=== PATIENT | female | born 1955 | race Caucasian/White ===

== ENCOUNTER 2022-07-20 15:45 | Inpatient (IN) | payer MEDICARE, OTHER ==
--- OUTSIDE RECORDS SUMMARY | 2022-07-20 15:56 | XMS REPORT | Continuity of Care Document ---
:1955 Author Organization [facility] t Address [address] [place] [address] Care Team Providers Name Role Phone Breann Hou MD Primary Care Physician ABBY Attending Clinician Unavailable Breann Hou Attending Clinician [phone] Jael Pimentel MD Attending Clinician Sahil Kwon MD Attending Clinician Akua Jasso NP Attending Clinician Mary Mar MA Attending Clinician Unavailable MD JAEL PIMENTEL Attending Clinician Unavailable abby Attending Clinician Unavailable MARINA_JONAH Attending Clinician Unavailable ABBY Admitting Clinician Unavailable JAEL PIMENTEL Admitting Clinician Unavailable MD JAEL PIMENTEL Admitting Clinician Unavailable abby Admitting Clinician Unavailable PÉREZ Admitting Clinician Unavailable Payers Payer Name Policy Type Policy Number Effective Date Expiration Date [facility] [id number] 2022 [facility] 00:00:00 (MEDICARE REPLACEMENT/ADVANTA GE - PPO) [facility] [id number] (MEDICARE REPLACEMENT/ADVANTA GE - PPO) Problems Condition Condition Condition Status Onset Resolution Last Treating Co mments Source Name Details Category Date Date Treatment Clinician Date Acute Acute Problem Active 2021-09 [facility] respirator Respirator 0-19 [facility] y distress y Distress 00:00: ty 00 Hospita Clinics Vitamin Vitamin Problem Active [facility] B12 B12 8-04 [facility] deficiency 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 00 Hospita anemic) Anemic) Clinics Multiple Multiple Problem Active [facility] joint pain Joint Pain 8-04 [facility] Dyspnea at Dyspnea at Problem Active [facility] rest Rest 8-04 [facility] 00:[facility]: [facility] Gastroesop Gastroesop Problem Active S [facility] hageal hageal 6-14 [facility]i reflux Reflux 00:00: ty disease Disease 00 Hospita Clinics Edema Edema Problem Active [facility] 6-14 [facility] S/P ORIF S/P ORIF Disease Active 2020-09 Metho di (open (open 2-01 st reduction reduction 00:00: [facility] internal internal 00 l fixation) fixation) left left distal distal radius radius fracture fracture Closed Closed Problem Active 2020-09 [place] fracture Fracture 1-17 Commun i [facility] left [facility]:00[facility] Active 2020-09 [facility] fracture fracture 1-17 st of distal of distal 00:00: [facility] end of end of 00 l left left radius, radius, initial initial encounter encounter Lesion of Lesion of Problem Active [facility] marg[facility] skin of Skin of 06-22 [facility] face [facility]:00: [facility] Dysuria Dysuria Problem Active [facility] 9-29 [facility]: [facility] Acute Acute Problem Active [facility] sinusitis Sinusitis 4-27 Comm uni 00:00: ty 00 Hospita Clinics Acute Acute Problem Active [facility] sciatica Sciatica 6-24 [facility] i [facility]: [facility] Hyperlipid Hyperlipid Problem Active S weeny emia emia 6- Communi 00:00: ty 00 Hospita Clinics Cardiomyop Cardiomyop Problem Active S weveday athy athy 6- [facility] 00:[facility]: [facility] Acute Acute Problem Active 2017-09 [place] maxillary Maxillary 1-28 Comm uni sinusitis Sinusitis 00:00: ty 00 Hospita Clinics Asthmatic Asthmatic Problem Active 2017-09 [facility] bronchitis Bronchitis 1-28 Co mmuni 00:00: ty 00 Hospita Clinics Bronchitis Bronchitis Problem Active S weeny 9-20 Communi 00:00: ty 00 Hospita l Clinics Malaise Malaise Problem Active [facility] 9-20 Communi 00:00: ty Hospita l Clinics Onychomyco Onychomyco Problem Active S ween[facility] sis sis 12-18 Communi 00:00: ty 00 Hospita l Clinics Seasonal Seasonal Problem Active [facility] allergic Allergic 12-18 Commun i rhinitis Rhinitis 00:00: ty Hospita l Clinics Abrasion Abrasion Problem Active [facility] y 12-18 Communi 00:00: ty 00 Hospita l Clinics Fall Fall Problem Active [facility] 12-18 [facility]i 00:00: ty Hospita l Clinics COPD COPD Disease Active Overview: Method i (chronic (chronic 09-[address] obstructiv obstructiv 00:00: g of this Hospita e e 00 note l pulmonary pulmonary might be disease) disease) different from the original. MILD PER PT - NO OTHER PROBLEMS SINCE THEN. Hypertensi Hypertensi Disease Active M ethodi on on [facility] Hospita l Hyperchole Hyperchole Disease Active M ethodi steremia steremia st Hospita l Dental Dental Disease Active [facility] crown crown st present present Hospita l Allergies, Adverse Reactions, Alerts Allergy Allergy Status Severity Reaction(s) Onset Inactive Treating Comm ents Source Name Type Date Date Clinician Codeine Propensi Active Headache 2020-09 Metho di ty to 10-10 st adverse 00:00: Hospita reaction 00 l s to drug Codeine Allergy Active [facility] Social History Social Habit Start Date Stop Date Quantity Comments Source Alcohol intake 2021-09-21 2021-09-21 Current drinker Metho dist 00:00:00 00:00:00 of alcohol Hospital (finding) Cigarettes smoked 2021-08-10 2021-08-[address] current (pack per 00:00:00 00:00:00 Hospita l day) - Reported Cigarette 2021-08-10 2021-08-10 [facility]00[facility]00 [facility] Tobacco use and 2021-08-10 2021-08-10 Smokeless tobacco [facility] exposure 00:00:00 00:00:00 non-user Hospital History of tobacco 2005-06-28 Current smoker [facility] use 00:[facility]:00 Hospital Sex Ass[birth year] At [birth year] [facility] 00:00:[facility] 00:[facility]00 [facility] Smoking Status Start Date Stop Date Source Never Smoker [facility] Ex-smoker 2021-08-10 00:00:00 2021-08-10 00:00:00 [facility] Medications Ordered Filled Start Stop Current Ordering Indication Dosage Frequency Signature Comments Components Source Medication Medication Date Date Medication? Clinician (SIG) Name Name Marcinalog 40 Marcinalog 40 2021-09 No Kenalog 40 [facility] mg/mL mg/mL 0-05 mg/mL [facility]i suspension suspension 10:45: suspension ty for for 03 for Hospita injectionTa injectionTa injectionT l ke 2 mL by ke 2 mL by brenda 2 mL Clinics injection injection by route. route. injection route. Kenalog 40 Marcinalog 40 2021-09 No Kenalog 40 [facility] mg/mL mg/mL 0-05 mg/mL Communi suspension suspension 10:45: suspension ty for for 03 for Hospita injectionTa injectionTa injectionT l ke 2 mL by ke 2 mL by brenda 2 mL [facility] injection injection by route. route. injection route. Kenalog 40 Marcinalog 40 No Kenalog 40 [place] mg/mL mg/mL 8-11 mg/mL Communi suspension suspension 12:04: suspension ty for for 06 for Hospita injectionTa injectionTa injectionT l ke 2 mL by ke 2 mL by brenda 2 mL [facility] injection injection by route. route. injection route. cyanocobala cyanocobala No cyanocobal [facility] min (vit min (vit 7-06 josue (vit Co mmuni B-12) 1,000 B-12) 1,000 10:28: B-12) ty mcg/mL mcg/mL 07 1,000 Hospita injection injection mcg/mL l solutionInj solutionInj injection Clinics ect 1 mL ect 1 mL solutionIn every month every month ject 1 mL by by every subcutaneou subcutaneou month by s route. s route. subcutaneo us route. cyanocobala cyanocobala No cyanocobal [facility] min (vit min (vit 6-16 josue (vit Co mmuni B-12) 1,000 B-12) 1,000 13:43: B-12) ty mcg/mL mcg/mL 49 1,000 Hospita injection injection mcg/mL l solutionInj solutionInj injection Clinics ect 1 mL ect 1 mL solutionIn every month every month ject 1 mL by by every subcutaneou subcutaneou month by s route. s route. subcutaneo us route. cyanocobala cyanocobala No cyanocobal [place] min (vit min (vit 5-31 josue (vit Co mmuni B-12) 1,000 B-12) 1,000 09:14: B-12) ty mcg/mL mcg/mL 30 1,000 Hospita injection injection mcg/mL l solutionInj solutionInj injection Clinics ect 1 mL ect 1 mL solutionIn every month every month ject 1 mL by by every subcutaneou subcutaneou month by s route. s route. subcutaneo us route. ceftriaxone ceftriaxone No ceftriaxon [facility] 1 gram 1 gram 2-15 e 1 gram Communi solution solution 14:26: solution t y for for 42 for Hospita injectionTa injectionTa injectionT l ke 1 g by ke 1 g by brenda 1 g by Clinics injection injection injection route. route. route. Kenalog 40 Kenalog 40 No Kenalog 40 [place] mg/mL mg/mL 2-15 mg/mL Communi suspension suspension 14:25: suspension ty for for 54 for Hospita injectionTa injectionTa injectionT l ke 2 mL by ke 2 mL by brenda 2 mL Clinics injection injection by route. route. injection route. furosemide 2020-09 Yes 20mg Q24H Take 20 mg M ethodi (LASIX) 20 2-[address] mg tablet 10:38: daily as [facility]osp [facility] 12 needed. l losartan 2020-09 Yes 50mg QD Take 50 mg Met h[facility] (COZAAR) 50 2-[address] MG tablet 10:38: daily. Hospit a 12 l atorvastati 2020-09 Yes 20mg QD Take 20 mg [facility] n (LIPITOR) 2-[address] 20 mg 10:38: daily. Hospita tablet 12 Default OP l ins naproxen 2020-09 Yes 500mg Take 500 Meth daly (NAPROSYN) 2-[address] 500 MG 10:38: mouth as Hospita tablet 12 needed for l mild pain. ibuprofen 2020-09 Yes 600mg Q6H Take 600 [facility] (ADVIL) 600 2-[address] MG tablet 10:38: mouth Hospita 12 every 6 l (six) hours as needed for mild pain. cetirizine 2020-09 Yes 10mg QD Take 10 mg M ethodi (ZyrTEC) 10 2-[address] MG tablet 10:38: daily. Hospit a 12 l guaifenesin 2020-09 Yes Q24H Take by Met hodi /pseudoephe 2-[address] drne HCl 10:38: daily as Hospi ta (MUCINEX D 12 needed. l ORAL) CALCIUM 2020-09 Yes Take by [facility] ORAL 2-[address] 10:38: Hospita 12 l TURMERIC 2020-09 Yes Take by [facility] i ORAL 2-[address] 10:38: Hospita 12 l HYDROcodone 2020-09- [place] [id number] 1{tbl} Q6H Take 1 [facility] -acetaminop 1-19 11-[address] hen (NORCO) 00:00: 05:59 mouth Hosp al[facility] 5-325 mg 00 :00 every 6 l per tablet (six) hours as needed for moderate pain for up to 7 days .acute pain. Max Daily Amount: 4 tablets traMADoL 2020-09- [place] [id number] 50mg Q6H Take 1 Metho di (ULTRAM) 50 1-17 11-25 tablet (50 s t mg tablet 00:00: 05:59 mg total) Ho spita 00 :00 by mouth l every 6 (six) hours as needed for severe pain for up to 7 days .acute pain. montelukast 2020-09 Yes 10mg QD Take 10 mg [facility] (SINGULAIR) 0-[address] 10 mg 00:00: every Hospita tablet 00 morning. l carvediloL 2020-09 Yes 25mg Q.5D Take 25 mg M ethodi (COREG) 25 0-[address] MG tablet 00:00: (two) Hospita 00 times a l day. Kenalog 40 Kenalog 40 2021-0 No Kenalog 40 [facility] mg/mL mg/mL 9-29 mg/mL Communi suspension suspension 16:37: suspension ty for for 00 for Hospita injectionTa injectionTa injectionT l ke 2 mL by ke 2 mL by brenda 2 mL Clinics injection injection by route. route. injection route. omeprazole 0 Yes 10mg Q.5D Take 10 mg M ethodi (PriLOSEC) 06-[address] 10 MG 00:00: (two) Hospita capsule 00 times a l day. spironolact 0 Yes 25mg QD Take 25 mg [facility] one 06-[address] (ALDACTONE) 00:00: daily. [facility]osp [facility] 25 MG 00 l tablet Kenalog 40 Kenalog 40 No Kenalog 40 [place] mg/mL mg/mL 4-27 mg/mL Communi suspension suspension 14:55: suspension ty for for 36 for Hospita injectionIM injectionIM injectionI l one time one time M one time C linics B12 B12 2020-0 No B12 [place] 4-27 Communi 00:00: ty 00 Hospita l Clinics B12 B12 2020-0 No B12 [place] 4-27 Communi 00:00: ty 00 Hospita l Clinics B12 B12 2020-0 No B12 [facility] 4-27 Communi 00:00: ty 00 Hospita l Clinics B12 B12 2020-0 No B12 [place] 4-27 Communi 00:00: ty 00 Hospita l Clinics B12 B12 2020-0 No B12 [facility] 4-27 Communi 00:00: ty 00 Hospita l Clinics B12 B12 2020-0 No B12 [place] 4-27 Communi 00:00: ty 00 Hospita l Clinics B12 B12 2020-0 No B12 [place] 4-27 Communi 00:00: ty 00 Hospita l Clinics B12 B12 2020-0 No B12 [place] 4-27 Communi 00:00: ty 00 Hospita l Clinics B12 B12 2020-0 No B12 [place] 4-27 Communi 00:00: ty 00 Hospita l Clinics B12 B12 2020-0 No B12 [place] 4-27 Communi 00:00: ty 00 Hospita l Clinics B12 B12 2020-0 No B12 [place] 4-27 Communi 00:00: ty 00 Hospita l Clinics B12 B12 2020-0 No B12 [place] 01-18 Communi 00:00: ty [facility] B12 B12 2020-0 No B12 [place] 01-18 Communi 00:00: ty [facility] B12 B12 2020-0 No B12 [place] 01-18 Communi 00:00: ty 00 [facility] amoxicillin amoxicillin No 1 Q12H amoxicilli [facility] [phone] n 875 Communi mg-potassiu mg-potassiu mg-potassi ty m m [facility] clavulanate clavulanate clavulanat l 125 mg 125 mg e 125 mg Clinics tablet Take tablet Take tablet 1 tablet 1 tablet Take 1 every 12 every 12 tablet hours by hours by every 12 oral route. oral route. hours by oral route. atorvastati atorvastati No atorvastat [place] n 20 mg n 20 mg in 20 mg Com[facility] ni tablet TAKE tablet TAKE tablet ty ONE (1) ONE (1) TAKE ONE Hospi ta TABLET(S) TABLET(S) (1) l BY MOUTH BY MOUTH TABLET(S) Cl inics ONCE A DAY. ONCE A DAY. BY MOUTH ONCE A DAY. biotin otc biotin otc No biotin otc [facility] 10,000 10,000 10,000 Communi daily. daily. daily. [facility] Calcium 600 Calcium 600 No Calcium [facility] daily daily 600 daily Communi [facility] carvedilol carvedilol No carvedilol [facility] 25 mg 25 mg 25 mg Communi tablet TAKE tablet TAKE tablet ty ONE (1) ONE (1) TAKE ONE Hospi ta TABLET(S) TABLET(S) (1) l BY MOUTH BY MOUTH TABLET(S) Cl inics TWICE A TWICE A BY MOUTH DAY. DAY. TWICE A DAY. furosemide furosemide No furosemide [facility] 80 mg 80 mg 80 mg Communi tablet TAKE tablet TAKE tablet ty ONE (1) ONE (1) TAKE ONE Hospi ta TABLET(S) TABLET(S) (1) l BY MOUTH BY MOUTH TABLET(S) Cl inics ONCE A DAY. ONCE A DAY. BY MOUTH ONCE A DAY. hydrocodone hydrocodone No hydrocodon [facility] 5 5 e 5 Communi mg-acetamin mg-acetamin mg-acetami ty ophen 325 ophen 325 nophen 325 Hospita mg tablet mg tablet mg tablet l TAKE ONE TAKE ONE TAKE ONE Cli nics (1) TABLET (1) TABLET (1) TABLET BY MOUTH BY MOUTH BY MOUTH EVERY SIX EVERY SIX EVERY SIX HOURS HOURS HOURS NEEDED FOR NEEDED FOR NEEDED FOR PAIN. MAX PAIN. MAX PAIN. MAX OF 4 TABS A OF 4 TABS A OF 4 TABS DAY. DAY. A DAY. losartan 50 losartan 50 No losartan [facility] mg tablet mg tablet 50 mg Comm uni TAKE ONE TAKE ONE tablet ty (1) (1) TAKE ONE Hospita TABLET(S) TABLET(S) (1) l BY MOUTH BY MOUTH TABLET(S) Cl inics ONCE A DAY. ONCE A DAY. BY MOUTH ONCE A DAY. meloxicam meloxicam No meloxicam [facility] 7.5 mg 7.5 mg 7.5 mg Communi tablet TAKE tablet TAKE tablet ty ONE (1) ONE (1) TAKE ONE Hospi ta TABLET(S) TABLET(S) (1) l BY MOUTH BY MOUTH TABLET(S) Cl inics ONCE A DAY. ONCE A DAY. BY MOUTH ONCE A DAY. montelukast montelukast No montelukas [facility] 10 mg 10 mg t 10 mg Communi tablet TAKE tablet TAKE tablet ty ONE (1) ONE (1) TAKE ONE Hospi ta TABLET(S) TABLET(S) (1) l BY MOUTH BY MOUTH TABLET(S) Cl inics EVERY EVERY BY MOUTH MORNING. MORNING. EVERY MORNING. Mucinex Mucinex No Mucinex [facility] Communi ty Hospita l Clinics naproxen naproxen No naproxen [facility] 500 mg 500 mg 500 mg Communi tablet TAKE tablet TAKE tablet ty ONE (1) ONE (1) TAKE ONE Hospi ta TABLET(S) TABLET(S) (1) l BY MOUTH BY MOUTH TABLET(S) Cl inics TWICE A DAY TWICE A DAY BY MOUTH WITH MEALS. WITH MEALS. TWICE A DAY WITH MEALS. omeprazole omeprazole No omeprazole [facility] 20 mg 20 mg 20 mg Communi capsule,del capsule,del capsule,de ty ayed ayed layed Hospita release release release l TAKE ONE TAKE ONE TAKE ONE Cli nics (1) (1) (1) CAPSULE(S) CAPSULE(S) CAPSULE(S) BY MOUTH BY MOUTH BY MOUTH ONCE A DAY. ONCE A DAY. ONCE A DAY. One A Day One A Day No One A Day [facility] Vitamin Vitamin Vitamin Commun i Daily Daily Daily [facility] Probiotic Probiotic No Probiotic [facility] Communi [facility] spironolact spironolact No spironolac [place] one 25 mg one 25 mg tone 25 mg Communi tablet TAKE tablet TAKE tablet ty ONE (1) ONE (1) TAKE ONE Hospi ta TABLET(S) TABLET(S) (1) l BY MOUTH BY MOUTH TABLET(S) Cl inics ONCE A DAY. ONCE A DAY. BY MOUTH ONCE A DAY. tramadol 50 tramadol 50 No tramadol [facility] mg tablet mg tablet 50 mg Comm uni TAKE ONE TAKE ONE tablet ty (1) (1) TAKE ONE Hospita TABLET(S) TABLET(S) (1) l BY MOUTH BY MOUTH TABLET(S) Cl inics EVERY SIX EVERY SIX BY MOUTH HOURS HOURS EVERY SIX NEEDED FOR NEEDED FOR HOURS SEVERE SEVERE NEEDED FOR PAIN. PAIN. SEVERE PAIN. turmeric turmeric No turmeric [facility] Communi [facility] Tylenol 325 Tylenol 325 No 2 Q6H Tylenol [facility] mg tablet mg tablet 325 mg Com clarke Take 2 Take 2 tablet ty tablets tablets Take 2 Hospita every 6 every 6 tablets l hours by hours by every 6 Clin ics oral route oral route hours by as needed. as needed. oral route as needed. Vitamin D3 Vitamin D3 No Vitamin D3 [facility] 5000 iu 5000 iu 5000 iu Commun i daily daily daily [facility] Zyrtec Zyrtec No Zyrtec [facility] Communi [facility] amoxicillin amoxicillin No 1 Q12H amoxicilli [facility] [phone] n 875 Communi mg-potassiu mg-potassiu mg-potassi ty m m [facility] clavulanate clavulanate clavulanat l 125 mg 125 mg e 125 mg Clinics tablet Take tablet Take tablet 1 tablet 1 tablet Take 1 every 12 every 12 tablet hours by hours by every 12 oral route. oral route. hours by oral route. atorvastati atorvastati No atorvastat [facility] n 20 mg n 20 mg in 20 mg Commu ni tablet TAKE tablet TAKE tablet ty ONE (1) ONE (1) TAKE ONE Hospi ta TABLET(S) TABLET(S) (1) l BY MOUTH BY MOUTH TABLET(S) Cl inics ONCE A DAY. ONCE A DAY. BY MOUTH ONCE A DAY. biotin otc biotin otc No biotin otc [facility] 10,000 10,000 10,000 Communi daily. daily. daily. ty [facility] Calcium 600 Calcium 600 No Calcium [place] daily daily 600 daily Communi ty [facility] carvedilol carvedilol No carvedilol [facility] 25 mg 25 mg 25 mg Communi tablet TAKE tablet TAKE tablet ty ONE (1) ONE (1) TAKE ONE Hospi ta TABLET(S) TABLET(S) (1) l BY MOUTH BY MOUTH TABLET(S) Cl inics TWICE A TWICE A BY MOUTH DAY. DAY. TWICE A DAY. furosemide furosemide No furosemide [facility] 80 mg 80 mg 80 mg Communi tablet TAKE tablet TAKE tablet ty ONE (1) ONE (1) TAKE ONE Hospi ta TABLET(S) TABLET(S) (1) l BY MOUTH BY MOUTH TABLET(S) Cl inics ONCE A DAY. ONCE A DAY. BY MOUTH ONCE A DAY. hydrocodone hydrocodone No hydrocodon [facility] 5 5 e 5 Communi mg-acetamin mg-acetamin mg-acetami ty ophen 325 ophen 325 nophen 325 Hospita mg tablet mg tablet mg tablet l TAKE ONE TAKE ONE TAKE ONE Cli nics (1) TABLET (1) TABLET (1) TABLET BY MOUTH BY MOUTH BY MOUTH EVERY SIX EVERY SIX EVERY SIX HOURS HOURS HOURS NEEDED FOR NEEDED FOR NEEDED FOR PAIN. MAX PAIN. MAX PAIN. MAX OF 4 TABS A OF 4 TABS A OF 4 TABS DAY. DAY. A DAY. Kenalog 40 Kenalog 40 No 2mL Kenalog 40 [facility] mg/mL mg/mL mg/mL Communi suspension suspension suspension ty for for for Hospita injection injection injection l Take 2 mL Take 2 mL Take 2 mL Clinics by by by injection injection injection route. route. route. losartan 50 losartan 50 No losartan [facility] mg tablet mg tablet 50 mg Comm uni TAKE ONE TAKE ONE tablet ty (1) (1) TAKE ONE Hospita TABLET(S) TABLET(S) (1) l BY MOUTH BY MOUTH TABLET(S) Cl inics ONCE A DAY. ONCE A DAY. BY MOUTH ONCE A DAY. meloxicam meloxicam No meloxicam [facility] 7.5 mg 7.5 mg 7.5 mg Communi tablet TAKE tablet TAKE tablet ty ONE (1) ONE (1) TAKE ONE Hospi ta TABLET(S) TABLET(S) (1) l BY MOUTH BY MOUTH TABLET(S) Cl inics ONCE A DAY. ONCE A DAY. BY MOUTH ONCE A DAY. montelukast montelukast No montelukas [facility] 10 mg 10 mg t 10 mg Communi tablet TAKE tablet TAKE tablet ty ONE (1) ONE (1) TAKE ONE Hospi ta TABLET(S) TABLET(S) (1) l BY MOUTH BY MOUTH TABLET(S) Cl inics EVERY EVERY BY MOUTH MORNING. MORNING. EVERY MORNING. Mucinex Mucinex No Mucinex [place] Communi ty [facility] naproxen naproxen No naproxen Swe [facility] 500 mg 500 mg 500 mg Communi tablet TAKE tablet TAKE tablet ty ONE (1) ONE (1) TAKE ONE Hospi ta TABLET(S) TABLET(S) (1) l BY MOUTH BY MOUTH TABLET(S) Cl inics TWICE A DAY TWICE A DAY BY MOUTH WITH MEALS. WITH MEALS. TWICE A DAY WITH MEALS. omeprazole omeprazole No omeprazole [facility] 20 mg 20 mg 20 mg Communi capsule,del capsule,del capsule,de ty ayed ayed layed Hospita release release release l TAKE ONE TAKE ONE TAKE ONE Cli nics (1) (1) (1) CAPSULE(S) CAPSULE(S) CAPSULE(S) BY MOUTH BY MOUTH BY MOUTH ONCE A DAY. ONCE A DAY. ONCE A DAY. One A Day One A Day No One A Day [facility] Vitamin Vitamin Vitamin Commun i Daily Daily Daily ty [facility] Probiotic Probiotic No Probiotic [facility] Communi [facility] spironolact spironolact No spironolac [place] one 25 mg one 25 mg tone 25 mg Communi tablet TAKE tablet TAKE tablet ty ONE (1) ONE (1) TAKE ONE Hospi ta TABLET(S) TABLET(S) (1) l BY MOUTH BY MOUTH TABLET(S) Cl inics ONCE A DAY. ONCE A DAY. BY MOUTH ONCE A DAY. tramadol 50 tramadol 50 No tramadol [facility] mg tablet mg tablet 50 mg Comm uni TAKE ONE TAKE ONE tablet ty (1) (1) TAKE ONE Hospita TABLET(S) TABLET(S) (1) l BY MOUTH BY MOUTH TABLET(S) Cl inics EVERY SIX EVERY SIX BY MOUTH HOURS HOURS EVERY SIX NEEDED FOR NEEDED FOR HOURS SEVERE SEVERE NEEDED FOR PAIN. PAIN. SEVERE PAIN. turmeric turmeric No turmeric Swe marg[facility] Communi ty [facility] Tylenol 325 Tylenol 325 No 2 Q6H Tylenol [facility] mg tablet mg tablet 325 mg Com clarke Take 2 Take 2 tablet ty tablets tablets Take 2 Hospita every 6 every 6 tablets l hours by hours by every 6 Clin ics oral route oral route hours by as needed. as needed. oral route as needed. Vitamin D3 Vitamin D3 No Vitamin D3 [facility] 5000 iu 5000 iu 5000 iu Commun i daily daily daily ty [facility] Zyrtec Zyrtec No Zyrtec [place] Communi ty [facility] atorvastati atorvastati No atorvastat [place] n 20 mg n 20 mg in 20 mg Commu ni tablet TAKE tablet TAKE tablet ty ONE (1) ONE (1) TAKE ONE Hospi ta TABLET(S) TABLET(S) (1) l BY MOUTH BY MOUTH TABLET(S) Cl inics ONCE A DAY. ONCE A DAY. BY MOUTH ONCE A DAY. Augmentin Augmentin No 1 Q12H Augmentin [facility] 875 mg-125 875 mg-125 875 mg-125 Communi mg tablet mg tablet mg tablet ty Take 1 Take 1 Take 1 Hospita tablet tablet tablet l every 12 every 12 every 12 Cli nics hours by hours by hours by oral route. oral route. oral route. Calcium 600 Calcium 600 No Calcium [place] daily daily 600 daily Communi ty [facility] carvedilol carvedilol No carvedilol [facility] 25 mg 25 mg 25 mg Communi tablet TAKE tablet TAKE tablet ty ONE (1) ONE (1) TAKE ONE Hospi ta TABLET(S) TABLET(S) (1) l BY MOUTH BY MOUTH TABLET(S) Cl inics TWICE A TWICE A BY MOUTH DAY. DAY. TWICE A DAY. furosemide furosemide No furosemide [facility] 80 mg 80 mg 80 mg Communi tablet TAKE tablet TAKE tablet ty ONE (1) ONE (1) TAKE ONE Hospi ta TABLET(S) TABLET(S) (1) l BY MOUTH BY MOUTH TABLET(S) Cl inics ONCE A DAY. ONCE A DAY. BY MOUTH ONCE A DAY. losartan 50 losartan 50 No losartan [facility] mg tablet mg tablet 50 mg Comm uni TAKE ONE TAKE ONE tablet ty (1) (1) TAKE ONE Hospita TABLET(S) TABLET(S) (1) l BY MOUTH BY MOUTH TABLET(S) Cl inics ONCE A DAY. ONCE A DAY. BY MOUTH ONCE A DAY. montelukast montelukast No montelukas [facility] 10 mg 10 mg t 10 mg Communi tablet TAKE tablet TAKE tablet ty ONE (1) ONE (1) TAKE ONE Hospi ta TABLET(S) TABLET(S) (1) l BY MOUTH BY MOUTH TABLET(S) Cl inics EVERY EVERY BY MOUTH MORNING. MORNING. EVERY MORNING. Mucinex Mucinex No Mucinex [place] Communi ty [facility] naproxen naproxen No naproxen Swe margy 500 mg 500 mg 500 mg Communi tablet TAKE tablet TAKE tablet ty ONE (1) ONE (1) TAKE ONE Hospi ta TABLET(S) TABLET(S) (1) l BY MOUTH BY MOUTH TABLET(S) Cl inics TWICE A DAY TWICE A DAY BY MOUTH WITH MEALS. WITH MEALS. TWICE A DAY WITH MEALS. omeprazole omeprazole No omeprazole [facility] 10 mg 10 mg 10 mg Communi capsule,del capsule,del capsule,de ty ayed ayed layed Hospita release release release l TAKE ONE TAKE ONE TAKE ONE Cli nics (1) (1) (1) CAPSULE(S) CAPSULE(S) CAPSULE(S) BY MOUTH BY MOUTH BY MOUTH TWICE A TWICE A TWICE A DAY. DAY. DAY. One A Day One A Day No One A Day [facility] Vitamin Vitamin Vitamin Commun i Daily Daily Daily ty [facility] Probiotic Probiotic No Probiotic [place] Communi ty [facility] spironolact spironolact No spironolac [place] one 25 mg one 25 mg tone 25 mg Communi tablet TAKE tablet TAKE tablet ty ONE (1) ONE (1) TAKE ONE Hospi ta TABLET(S) TABLET(S) (1) l BY MOUTH BY MOUTH TABLET(S) Cl inics ONCE A DAY. ONCE A DAY. BY MOUTH ONCE A DAY. turmeric turmeric No turmeric Swe margy Communi ty [facility] Tylenol 325 Tylenol 325 No 2 Q6H Tylenol [place] mg tablet mg tablet 325 mg Com clarke Take 2 Take 2 tablet ty tablets tablets Take 2 Hospita every 6 every 6 tablets l hours by hours by every 6 Clin ics oral route oral route hours by as needed. as needed. oral route as needed. Vitamin D3 Vitamin D3 No Vitamin D3 [place] 5000 iu 5000 iu 5000 iu Commun i daily daily daily ty [facility] Zyrtec Zyrtec No Zyrtec [place] Communi ty [facility] atorvastati atorvastati No atorvastat [place] n 20 mg n 20 mg in 20 mg Commu ni tablet TAKE tablet TAKE tablet ty ONE (1) ONE (1) TAKE ONE Hospi ta TABLET(S) TABLET(S) (1) l BY MOUTH BY MOUTH TABLET(S) Cl inics ONCE A DAY. ONCE A DAY. BY MOUTH ONCE A DAY. Augmentin Augmentin No 1 Q12H Augmentin [place] 875 mg-125 875 mg-125 875 mg-125 Communi mg tablet mg tablet mg tablet ty Take 1 Take 1 Take 1 Hospita tablet tablet tablet l every 12 every 12 every 12 Cli nics hours by hours by hours by oral route. oral route. oral route. Calcium 600 Calcium 600 No Calcium [place] daily daily 600 daily Communi ty [facility] carvedilol carvedilol No carvedilol [place] 25 mg 25 mg 25 mg Communi tablet TAKE tablet TAKE tablet ty ONE (1) ONE (1) TAKE ONE Hospi ta TABLET(S) TABLET(S) (1) l BY MOUTH BY MOUTH TABLET(S) Cl inics TWICE A TWICE A BY MOUTH DAY. DAY. TWICE A DAY. furosemide furosemide No furosemide [place] 80 mg 80 mg 80 mg Communi tablet TAKE tablet TAKE tablet ty ONE (1) ONE (1) TAKE ONE Hospi ta TABLET(S) TABLET(S) (1) l BY MOUTH BY MOUTH TABLET(S) Cl inics ONCE A DAY. ONCE A DAY. BY MOUTH ONCE A DAY. Kenalog 40 Kenalog 40 No Kenalog 40 [place] mg/mL mg/mL mg/mL Communi suspension suspension suspension ty for for for Hospita injection injection injection l IM one time IM one time IM one Clinics time losartan 50 losartan 50 No losartan [place] mg tablet mg tablet 50 mg Comm uni TAKE ONE TAKE ONE tablet ty (1) (1) TAKE ONE Hospita TABLET(S) TABLET(S) (1) l BY MOUTH BY MOUTH TABLET(S) Cl inics ONCE A DAY. ONCE A DAY. BY MOUTH ONCE A DAY. montelukast montelukast No montelukas [place] 10 mg 10 mg t 10 mg Communi tablet TAKE tablet TAKE tablet ty ONE (1) ONE (1) TAKE ONE Hospi ta TABLET(S) TABLET(S) (1) l BY MOUTH BY MOUTH TABLET(S) Cl inics EVERY EVERY BY MOUTH MORNING. MORNING. EVERY MORNING. Mucinex Mucinex No Mucinex [place] [facility] naproxen naproxen No naproxen Swe margy 500 mg 500 mg 500 mg Communi tablet TAKE tablet TAKE tablet ty ONE (1) ONE (1) TAKE ONE Hospi ta TABLET(S) TABLET(S) (1) l BY MOUTH BY MOUTH TABLET(S) Cl inics TWICE A DAY TWICE A DAY BY MOUTH WITH MEALS. WITH MEALS. TWICE A DAY WITH MEALS. omeprazole omeprazole No omeprazole [place] 10 mg 10 mg 10 mg Communi capsule,del capsule,del capsule,de ty ayed ayed layed Hospita release release release l TAKE ONE TAKE ONE TAKE ONE Cli nics (1) (1) (1) CAPSULE(S) CAPSULE(S) CAPSULE(S) BY MOUTH BY MOUTH BY MOUTH TWICE A TWICE A TWICE A DAY. DAY. DAY. One A Day One A Day No One A Day [place] Vitamin Vitamin Vitamin Commun i Daily Daily Daily [facility] Probiotic Probiotic No Probiotic [place] [facility] spironolact spironolact No spironolac [place] one 25 mg one 25 mg tone 25 mg Communi tablet TAKE tablet TAKE tablet ty ONE (1) ONE (1) TAKE ONE Hospi ta TABLET(S) TABLET(S) (1) l BY MOUTH BY MOUTH TABLET(S) Cl inics ONCE A DAY. ONCE A DAY. BY MOUTH ONCE A DAY. turmeric turmeric No turmeric Swe margy Communi [facility] Tylenol 325 Tylenol 325 No 2 Q6H Tylenol [place] mg tablet mg tablet 325 mg Com clarke Take 2 Take 2 tablet ty tablets tablets Take 2 Hospita every 6 every 6 tablets l hours by hours by every 6 Clin ics oral route oral route hours by as needed. as needed. oral route as needed. Vitamin D3 Vitamin D3 No Vitamin D3 [place] 5000 iu 5000 iu 5000 iu [facility]tec [place] [facility] am[facility] No amoxicilli [place] [phone] n 875 Communi mg-potassiu mg-potassiu mg-potassi ty m m um [facility] clavulanate clavulanate clavulanat l 125 mg 125 mg e 125 mg Clinics tablet TAKE tablet TAKE tablet ONE (1) ONE (1) TAKE ONE TABLET(S) TABLET(S) (1) BY MOUTH BY MOUTH TABLET(S) EVERY EVERY BY MOUTH TWELVE TWELVE EVERY HOURS FOR HOURS FOR TWELVE 10 DAYS. 10 DAYS. HOURS FOR 10 DAYS. atorvastati atorvastati No atorvastat [place] n 20 mg n 20 mg in 20 mg Commu ni tablet TAKE tablet TAKE tablet ty ONE (1) ONE (1) TAKE ONE Hospi ta TABLET(S) TABLET(S) (1) l BY MOUTH BY MOUTH TABLET(S) Cl inics ONCE A DAY. ONCE A DAY. BY MOUTH ONCE A DAY. Calcium 600 Calcium 600 No Calcium [place] daily daily 600 daily Communi ty [facility] carvedilol carvedilol No carvedilol [place] 25 mg 25 mg 25 mg Communi tablet TAKE tablet TAKE tablet ty ONE (1) ONE (1) TAKE ONE Hospi ta TABLET(S) TABLET(S) (1) l BY MOUTH BY MOUTH TABLET(S) Cl inics TWICE A TWICE A BY MOUTH DAY. DAY. TWICE A DAY. furosemide furosemide No furosemide [place] 80 mg 80 mg 80 mg Communi tablet TAKE tablet TAKE tablet ty ONE (1) ONE (1) TAKE ONE Hospi ta TABLET(S) TABLET(S) (1) l BY MOUTH BY MOUTH TABLET(S) Cl inics ONCE A DAY. ONCE A DAY. BY MOUTH ONCE A DAY. Kenalog 40 Kenalog 40 No Kenalog 40 [place] mg/mL mg/mL mg/mL Communi suspension suspension suspension ty for for for Hospita injection injection injection l IM one time IM one time IM one Clinics time losartan 50 losartan 50 No losartan [place] mg tablet mg tablet 50 mg Comm uni TAKE ONE TAKE ONE tablet ty (1) (1) TAKE ONE Hospita TABLET(S) TABLET(S) (1) l BY MOUTH BY MOUTH TABLET(S) Cl inics ONCE A DAY. ONCE A DAY. BY MOUTH ONCE A DAY. montelukast montelukast No montelukas [place] 10 mg 10 mg t 10 mg Communi tablet TAKE tablet TAKE tablet ty ONE (1) ONE (1) TAKE ONE Hospi ta TABLET(S) TABLET(S) (1) l BY MOUTH BY MOUTH TABLET(S) Cl inics EVERY EVERY BY MOUTH MORNING. MORNING. EVERY MORNING. Mucinex Mucinex No Mucinex [place] Communi ty [facility] naproxen naproxen No naproxen Swe margy 500 mg 500 mg 500 mg Communi tablet TAKE tablet TAKE tablet ty ONE (1) ONE (1) TAKE ONE Hospi ta TABLET(S) TABLET(S) (1) l BY MOUTH BY MOUTH TABLET(S) Cl inics TWICE A DAY TWICE A DAY BY MOUTH WITH MEALS. WITH MEALS. TWICE A DAY WITH MEALS. omeprazole omeprazole No omeprazole [place] 10 mg 10 mg 10 mg Communi capsule,del capsule,del capsule,de ty ayed ayed layed Hospita release release release l TAKE ONE TAKE ONE TAKE ONE Cli nics (1) (1) (1) CAPSULE(S) CAPSULE(S) CAPSULE(S) BY MOUTH BY MOUTH BY MOUTH TWICE A TWICE A TWICE A DAY. DAY. DAY. One A Day One A Day No One A Day [place] Vitamin Vitamin Vitamin Commun i Daily Daily Daily ty [facility] Probiotic Probiotic No Probiotic [place] Communi ty [facility] spironolact spironolact No spironolac [place] one 25 mg one 25 mg tone 25 mg Communi tablet TAKE tablet TAKE tablet ty ONE (1) ONE (1) TAKE ONE Hospi ta TABLET(S) TABLET(S) (1) l BY MOUTH BY MOUTH TABLET(S) Cl inics ONCE A DAY. ONCE A DAY. BY MOUTH ONCE A DAY. turmeric turmeric No turmeric Swe margy Communi ty [facility] Tylenol 325 Tylenol 325 No 2 Q6H Tylenol [place] mg tablet mg tablet 325 mg Com clarke Take 2 Take 2 tablet ty tablets tablets Take 2 Hospita every 6 every 6 tablets l hours by hours by every 6 Clin ics oral route oral route hours by as needed. as needed. oral route as needed. Vitamin D3 Vitamin D3 No Vitamin D3 [place] 5000 iu 5000 iu 5000 iu Commun i daily daily daily ty [facility] Zyrtec Zyrtec No Zyrtec [place] Communi ty [facility] atorvastati atorvastati No atorvastat [place] n 20 mg n 20 mg in 20 mg Commu ni tablet TAKE tablet TAKE tablet ty ONE (1) ONE (1) TAKE ONE Hospi ta TABLET(S) TABLET(S) (1) l BY MOUTH BY MOUTH TABLET(S) Cl inics ONCE A DAY. ONCE A DAY. BY MOUTH ONCE A DAY. Calcium 600 Calcium 600 No Calcium [place] daily daily 600 daily Communi [facility] carvedilol carvedilol No carvedilol [place] 25 mg 25 mg 25 mg Communi tablet TAKE tablet TAKE tablet ty ONE (1) ONE (1) TAKE ONE Hospi ta TABLET(S) TABLET(S) (1) l BY MOUTH BY MOUTH TABLET(S) Cl inics TWICE A TWICE A BY MOUTH DAY. DAY. TWICE A DAY. Cipro 500 Cipro 500 No 1 Q12H Cipro 500 [place] mg tablet mg tablet mg tablet Communi Take 1 Take 1 Take 1 ty tablet tablet tablet Hospita every 12 every 12 every 12 l hours by hours by hours by Cli nics oral route. oral route. oral route. furosemide furosemide No furosemide [place] 80 mg 80 mg 80 mg Communi tablet TAKE tablet TAKE tablet ty ONE (1) ONE (1) TAKE ONE Hospi ta TABLET(S) TABLET(S) (1) l BY MOUTH BY MOUTH TABLET(S) Cl inics ONCE A DAY. ONCE A DAY. BY MOUTH ONCE A DAY. losartan 50 losartan 50 No losartan [place] mg tablet mg tablet 50 mg Comm uni TAKE ONE TAKE ONE tablet ty (1) (1) TAKE ONE Hospita TABLET(S) TABLET(S) (1) l BY MOUTH BY MOUTH TABLET(S) Cl inics ONCE A DAY. ONCE A DAY. BY MOUTH ONCE A DAY. montelukast montelukast No montelukas [place] 10 mg 10 mg t 10 mg Communi tablet TAKE tablet TAKE tablet ty ONE (1) ONE (1) TAKE ONE Hospi ta TABLET(S) TABLET(S) (1) l BY MOUTH BY MOUTH TABLET(S) Cl inics EVERY EVERY BY MOUTH MORNING. MORNING. EVERY MORNING. Mucinex Mucinex No Mucinex [place] Communi ty [facility] naproxen naproxen No naproxen Swe margy 500 mg 500 mg 500 mg Communi tablet TAKE tablet TAKE tablet ty ONE (1) ONE (1) TAKE ONE Hospi ta TABLET(S) TABLET(S) (1) l BY MOUTH BY MOUTH TABLET(S) Cl inics TWICE A DAY TWICE A DAY BY MOUTH WITH MEALS. WITH MEALS. TWICE A DAY WITH MEALS. omeprazole omeprazole No omeprazole [place] 10 mg 10 mg 10 mg Communi capsule,del capsule,del capsule,de ty ayed ayed layed Hospita release release release l TAKE ONE TAKE ONE TAKE ONE Cli nics (1) (1) (1) CAPSULE(S) CAPSULE(S) CAPSULE(S) BY MOUTH BY MOUTH BY MOUTH TWICE A TWICE A TWICE A DAY. DAY. DAY. One A Day One A Day No One A Day [place] Vitamin Vitamin Vitamin Commun i Daily Daily Daily [facility] Probiotic Probiotic No Probiotic [place] [facility] spironolact spironolact No spironolac [place] one 25 mg one 25 mg tone 25 mg Communi tablet TAKE tablet TAKE tablet ty ONE (1) ONE (1) TAKE ONE Hospi ta TABLET(S) TABLET(S) (1) l BY MOUTH BY MOUTH TABLET(S) Cl inics ONCE A DAY. ONCE A DAY. BY MOUTH ONCE A DAY. turmeric turmeric No turmeric Swe margy Communi [facility] Tylenol 325 Tylenol 325 No 2 Q6H Tylenol [place] mg tablet mg tablet 325 mg Com clarke Take 2 Take 2 tablet ty tablets tablets Take 2 Hospita every 6 every 6 tablets l hours by hours by every 6 Clin ics oral route oral route hours by as needed. as needed. oral route as needed. Vitamin D3 Vitamin D3 No Vitamin D3 [place] 5000 iu 5000 iu 5000 iu Commun i daily daily daily ty [facility] Zyrtec Zyrtec No Zyrtec [place] Communi ty [facility] atorvastati atorvastati No atorvastat [place] n 20 mg n 20 mg in 20 mg Commu ni tablet TAKE tablet TAKE tablet ty ONE (1) ONE (1) TAKE ONE Hospi ta TABLET(S) TABLET(S) (1) l BY MOUTH BY MOUTH TABLET(S) Cl inics ONCE A DAY. ONCE A DAY. BY MOUTH ONCE A DAY. Calcium 600 Calcium 600 No Calcium [place] daily daily 600 daily Communi ty [facility] carvedilol carvedilol No carvedilol [place] 25 mg 25 mg 25 mg Communi tablet TAKE tablet TAKE tablet ty ONE (1) ONE (1) TAKE ONE Hospi ta TABLET(S) TABLET(S) (1) l BY MOUTH BY MOUTH TABLET(S) Cl inics TWICE A TWICE A BY MOUTH DAY. DAY. TWICE A DAY. Cipro 500 Cipro 500 No 1 Q12H Cipro 500 [place] mg tablet mg tablet mg tablet Communi Take 1 Take 1 Take 1 ty tablet tablet tablet Hospita every 12 every 12 every 12 l hours by hours by hours by Cli nics oral route. oral route. oral route. furosemide furosemide No furosemide [place] 80 mg 80 mg 80 mg Communi tablet TAKE tablet TAKE tablet ty ONE (1) ONE (1) TAKE ONE Hospi ta TABLET(S) TABLET(S) (1) l BY MOUTH BY MOUTH TABLET(S) Cl inics ONCE A DAY. ONCE A DAY. BY MOUTH ONCE A DAY. Kenalog 40 Kenalog 40 No 2mL Kenalog 40 [place] mg/mL mg/mL mg/mL Communi suspension suspension suspension ty for for for Hospita injection injection injection l Take 2 mL Take 2 mL Take 2 mL Clinics by by by injection injection injection route. route. route. losartan 50 losartan 50 No losartan [place] mg tablet mg tablet 50 mg Comm uni TAKE ONE TAKE ONE tablet ty (1) (1) TAKE ONE Hospita TABLET(S) TABLET(S) (1) l BY MOUTH BY MOUTH TABLET(S) Cl inics ONCE A DAY. ONCE A DAY. BY MOUTH ONCE A DAY. montelukast montelukast No montelukas [place] 10 mg 10 mg t 10 mg Communi tablet TAKE tablet TAKE tablet ty ONE (1) ONE (1) TAKE ONE Hospi ta TABLET(S) TABLET(S) (1) l BY MOUTH BY MOUTH TABLET(S) Cl inics EVERY EVERY BY MOUTH MORNING. MORNING. EVERY MORNING. Mucinex Mucinex No Mucinex [place] [facility] naproxen naproxen No naproxen Swe margy 500 mg 500 mg 500 mg Communi tablet TAKE tablet TAKE tablet ty ONE (1) ONE (1) TAKE ONE Hospi ta TABLET(S) TABLET(S) (1) l BY MOUTH BY MOUTH TABLET(S) Cl inics TWICE A DAY TWICE A DAY BY MOUTH WITH MEALS. WITH MEALS. TWICE A DAY WITH MEALS. omeprazole omeprazole No omeprazole [place] 10 mg 10 mg 10 mg Communi capsule,del capsule,del capsule,de ty ayed ayed layed Hospita release release release l TAKE ONE TAKE ONE TAKE ONE Cli nics (1) (1) (1) CAPSULE(S) CAPSULE(S) CAPSULE(S) BY MOUTH BY MOUTH BY MOUTH TWICE A TWICE A TWICE A DAY. DAY. DAY. One A Day One A Day No One A Day [place] Vitamin Vitamin Vitamin Commun i Daily Daily Daily [facility] Probiotic Probiotic No Probiotic [place] [facility] spironolact spironolact No spironolac [place] one 25 mg one 25 mg tone 25 mg Communi tablet TAKE tablet TAKE tablet ty ONE (1) ONE (1) TAKE ONE Hospi ta TABLET(S) TABLET(S) (1) l BY MOUTH BY MOUTH TABLET(S) Cl inics ONCE A DAY. ONCE A DAY. BY MOUTH ONCE A DAY. turmeric turmeric No turmeric Swe margy Communi [facility] Tylenol 325 Tylenol 325 No 2 Q6H Tylenol [place] mg tablet mg tablet 325 mg Com clarke Take 2 Take 2 tablet ty tablets tablets Take 2 Hospita every 6 every 6 tablets l hours by hours by every 6 Clin ics oral route oral route hours by as needed. as needed. oral route as needed. Vitamin D3 Vitamin D3 No Vitamin D3 [place] 5000 iu 5000 iu 5000 iu Commun i daily daily daily [facility] Zyrtec Zyrtec No Zyrtec [place] Communi ty [facility] atorvastati atorvastati No atorvastat [place] n 20 mg n 20 mg in 20 mg Commu ni tablet TAKE tablet TAKE tablet ty ONE (1) ONE (1) TAKE ONE Hospi ta TABLET(S) TABLET(S) (1) l BY MOUTH BY MOUTH TABLET(S) Cl inics ONCE A DAY. ONCE A DAY. BY MOUTH ONCE A DAY. Calcium 600 Calcium 600 No Calcium [place] daily daily 600 daily Communi ty [facility] carvedilol carvedilol No carvedilol [place] 25 mg 25 mg 25 mg Communi tablet TAKE tablet TAKE tablet ty ONE (1) ONE (1) TAKE ONE Hospi ta TABLET(S) TABLET(S) (1) l BY MOUTH BY MOUTH TABLET(S) Cl inics TWICE A TWICE A BY MOUTH DAY. DAY. TWICE A DAY. furosemide furosemide No furosemide [place] 80 mg 80 mg 80 mg Communi tablet TAKE tablet TAKE tablet ty ONE (1) ONE (1) TAKE ONE Hospi ta TABLET(S) TABLET(S) (1) l BY MOUTH BY MOUTH TABLET(S) Cl inics ONCE A DAY. ONCE A DAY. BY MOUTH ONCE A DAY. losartan 50 losartan 50 No losartan [place] mg tablet mg tablet 50 mg Comm uni TAKE ONE TAKE ONE tablet ty (1) (1) TAKE ONE Hospita TABLET(S) TABLET(S) (1) l BY MOUTH BY MOUTH TABLET(S) Cl inics ONCE A DAY. ONCE A DAY. BY MOUTH ONCE A DAY. montelukast montelukast No montelukas [place] 10 mg 10 mg t 10 mg Communi tablet TAKE tablet TAKE tablet ty ONE (1) ONE (1) TAKE ONE Hospi ta TABLET(S) TABLET(S) (1) l BY MOUTH BY MOUTH TABLET(S) Cl inics EVERY EVERY BY MOUTH MORNING. MORNING. EVERY MORNING. Mucinex Mucinex No Mucinex [place] Communi ty [facility] mupirocin 2 mupirocin 2 No mupirocin [place] % topical % topical 2 % Commu ni ointment ointment topical ty APPLY TO APPLY TO ointment [facility] AFFECTED AFFECTED APPLY TO l AREA TWICE AREA TWICE AFFECTED Clinics A DAY A DAY AREA TWICE NEEDED. NEEDED. A DAY NEEDED. naproxen naproxen No naproxen Swe margy 500 mg 500 mg 500 mg Communi tablet TAKE tablet TAKE tablet ty ONE (1) ONE (1) TAKE ONE Hospi ta TABLET(S) TABLET(S) (1) l BY MOUTH BY MOUTH TABLET(S) Cl inics TWICE A DAY TWICE A DAY BY MOUTH WITH MEALS. WITH MEALS. TWICE A DAY WITH MEALS. omeprazole omeprazole No omeprazole [place] 10 mg 10 mg 10 mg Communi capsule,del capsule,del capsule,de ty ayed ayed layed Hospita release release release l TAKE ONE TAKE ONE TAKE ONE Cli nics (1) (1) (1) CAPSULE(S) CAPSULE(S) CAPSULE(S) BY MOUTH BY MOUTH BY MOUTH TWICE A TWICE A TWICE A DAY. DAY. DAY. One A Day One A Day No One A Day [place] Vitamin Vitamin Vitamin Commun i Daily Daily Daily [facility] Probiotic Probiotic No Probiotic [place] [facility] spironolact spironolact No spironolac [place] one 25 mg one 25 mg tone 25 mg Communi tablet TAKE tablet TAKE tablet ty ONE (1) ONE (1) TAKE ONE Hospi ta TABLET(S) TABLET(S) (1) l BY MOUTH BY MOUTH TABLET(S) Cl inics ONCE A DAY. ONCE A DAY. BY MOUTH ONCE A DAY. turmeric turmeric No turmeric Swe margy Communi ty [facility] Tylenol 325 Tylenol 325 No 2 Q6H Tylenol [place] mg tablet mg tablet 325 mg Com clarke Take 2 Take 2 tablet ty tablets tablets Take 2 Hospita every 6 every 6 tablets l hours by hours by every 6 Clin ics oral route oral route hours by as needed. as needed. oral route as needed. Vitamin D3 Vitamin D3 No Vitamin D3 [place] 5000 iu 5000 iu 5000 iu Commun i daily daily daily ty [facility] Zyrtec Zyrtec No Zyrtec [place] [facility]i [facility] amoxicillin amoxicillin No 1 Q12H amoxicilli [place] [id number] n 875 Communi mg-potassiu mg-potassiu mg-potassi ty m m um [facility] clavulanate clavulanate clavulanat l 125 mg 125 mg e 125 mg Clinics tablet Take tablet Take tablet 1 tablet 1 tablet Take 1 every 12 every 12 tablet hours by hours by every 12 oral route. oral route. hours by oral route. atorvastati atorvastati No atorvastat [place] n 20 mg n 20 mg in 20 mg Com[facility] ni tablet TAKE tablet TAKE tablet ty ONE (1) ONE (1) TAKE ONE Hospi ta TABLET(S) TABLET(S) (1) l BY MOUTH BY MOUTH TABLET(S) Cl inics ONCE A DAY. ONCE A DAY. BY MOUTH ONCE A DAY. Calcium 600 Calcium 600 No Calcium [place] daily daily 600 daily Communi ty Hospita l [facility] carvedilol carvedilol No carvedilol [place] 25 mg 25 mg 25 mg Communi tablet TAKE tablet TAKE tablet ty ONE (1) ONE (1) TAKE ONE Hospi ta TABLET(S) TABLET(S) (1) l BY MOUTH BY MOUTH TABLET(S) Cl inics TWICE A TWICE A BY MOUTH DAY. DAY. TWICE A DAY. furosemide furosemide No furosemide [place] 80 mg 80 mg 80 mg Communi tablet TAKE tablet TAKE tablet ty ONE (1) ONE (1) TAKE ONE Hospi ta TABLET(S) TABLET(S) (1) l BY MOUTH BY MOUTH TABLET(S) Cl inics ONCE A DAY. ONCE A DAY. BY MOUTH ONCE A DAY. hydrocodone hydrocodone No hydrocodon [place] 5 5 e 5 Communi mg-acetamin mg-acetamin mg-acetami ty ophen 325 ophen 325 nophen 325 Hospita mg tablet mg tablet mg tablet l TAKE ONE TAKE ONE TAKE ONE Cli nics (1) TABLET (1) TABLET (1) TABLET BY MOUTH BY MOUTH BY MOUTH EVERY SIX EVERY SIX EVERY SIX HOURS HOURS HOURS NEEDED FOR NEEDED FOR NEEDED FOR PAIN. MAX PAIN. MAX PAIN. MAX OF 4 TABS A OF 4 TABS A OF 4 TABS DAY. DAY. A DAY. losartan 50 losartan 50 No losartan [place] mg tablet mg tablet 50 mg Comm uni TAKE ONE TAKE ONE tablet ty (1) (1) TAKE ONE Hospita TABLET(S) TABLET(S) (1) l BY MOUTH BY MOUTH TABLET(S) Cl inics ONCE A DAY. ONCE A DAY. BY MOUTH ONCE A DAY. montelukast montelukast No montelukas [place] 10 mg 10 mg t 10 mg Communi tablet TAKE tablet TAKE tablet ty ONE (1) ONE (1) TAKE ONE Hospi ta TABLET(S) TABLET(S) (1) l BY MOUTH BY MOUTH TABLET(S) Cl inics EVERY EVERY BY MOUTH MORNING. MORNING. EVERY MORNING. Mucinex Mucinex No Mucinex [place] Communi ty [facility] mupirocin 2 mupirocin 2 No mupirocin [place] % topical % topical 2 % [facility] ni ointment ointment topical ty APPLY TO APPLY TO ointment [facility] AFFECTED AFFECTED APPLY TO l AREA TWICE AREA TWICE AFFECTED Clinics A DAY A DAY AREA TWICE NEEDED. NEEDED. A DAY NEEDED. naproxen naproxen No naproxen Swe margy 500 mg 500 mg 500 mg Communi tablet TAKE tablet TAKE tablet ty ONE (1) ONE (1) TAKE ONE Hospi ta TABLET(S) TABLET(S) (1) l BY MOUTH BY MOUTH TABLET(S) Cl inics TWICE A DAY TWICE A DAY BY MOUTH WITH MEALS. WITH MEALS. TWICE A DAY WITH MEALS. omeprazole omeprazole No omeprazole [place] 10 mg 10 mg 10 mg Communi capsule,del capsule,del capsule,de ty ayed ayed layed Hospita release release release l TAKE ONE TAKE ONE TAKE ONE Cli nics (1) (1) (1) CAPSULE(S) CAPSULE(S) CAPSULE(S) BY MOUTH BY MOUTH BY MOUTH TWICE A TWICE A TWICE A DAY. DAY. DAY. One A Day One A Day No One A Day [place] Vitamin Vitamin Vitamin Commun i Daily Daily Daily ty [facility] Probiotic Probiotic No Probiotic [place] Communi ty [facility] spironolact spironolact No spironolac [place] one 25 mg one 25 mg tone 25 mg Communi tablet TAKE tablet TAKE tablet ty ONE (1) ONE (1) TAKE ONE Hospi ta TABLET(S) TABLET(S) (1) l BY MOUTH BY MOUTH TABLET(S) Cl inics ONCE A DAY. ONCE A DAY. BY MOUTH ONCE A DAY. tramadol 50 tramadol 50 No tramadol [place] mg tablet mg tablet 50 mg Comm uni TAKE ONE TAKE ONE tablet ty (1) (1) TAKE ONE Hospita TABLET(S) TABLET(S) (1) l BY MOUTH BY MOUTH TABLET(S) Cl inics EVERY SIX EVERY SIX BY MOUTH HOURS HOURS EVERY SIX NEEDED FOR NEEDED FOR HOURS SEVERE SEVERE NEEDED FOR PAIN. PAIN. SEVERE PAIN. turmeric turmeric No turmeric Swe margy Communi ty [facility] Tylenol 325 Tylenol 325 No 2 Q6H Tylenol [place] mg tablet mg tablet 325 mg Com clarke Take 2 Take 2 tablet ty tablets tablets Take 2 Hospita every 6 every 6 tablets l hours by hours by every 6 Clin ics oral route oral route hours by as needed. as needed. oral route as needed. Vitamin D3 Vitamin D3 No Vitamin D3 [place] 5000 iu 5000 iu 5000 iu Commun i daily daily daily ty [facility] Zyrtec Zyrtec No Zyrtec [place] Communi ty [facility] amoxicillin amoxicillin No 1 Q12H amoxicilli [place] [phone] n 875 Communi mg-potassiu mg-potassiu mg-potassi ty m m um [facility] clavulanate clavulanate clavulanat l 125 mg 125 mg e 125 mg [facility] tablet Take tablet Take tablet 1 tablet 1 tablet Take 1 every 12 every 12 tablet hours by hours by every 12 oral route. oral route. hours by oral route. atorvastati atorvastati No atorvastat [place] n 20 mg n 20 mg in 20 mg Com[facility] ni tablet TAKE tablet TAKE tablet ty ONE (1) ONE (1) TAKE ONE Hospi ta TABLET(S) TABLET(S) (1) l BY MOUTH BY MOUTH TABLET(S) Cl inics ONCE A DAY. ONCE A DAY. BY MOUTH ONCE A DAY. Calcium 600 Calcium 600 No Calcium [place] daily daily 600 daily Communi ty [facility] carvedilol carvedilol No carvedilol [place] 25 mg 25 mg 25 mg Communi tablet TAKE tablet TAKE tablet ty ONE (1) ONE (1) TAKE ONE Hospi ta TABLET(S) TABLET(S) (1) l BY MOUTH BY MOUTH TABLET(S) Cl inics TWICE A TWICE A BY MOUTH DAY. DAY. TWICE A DAY. ceftriaxone ceftriaxone No 1g ceftriaxon [place] 1 gram 1 gram e 1 gram Communi solution solution solution ty for for for Hospita injection injection injection l Take 1 g by Take 1 g by Take 1 g Clinics injection injection by route. route. injection route. furosemide furosemide No furosemide [place] 80 mg 80 mg 80 mg Communi tablet TAKE tablet TAKE tablet ty ONE (1) ONE (1) TAKE ONE Hospi ta TABLET(S) TABLET(S) (1) l BY MOUTH BY MOUTH TABLET(S) Cl inics ONCE A DAY. ONCE A DAY. BY MOUTH ONCE A DAY. hydrocodone hydrocodone No hydrocodon [place] 5 5 e 5 Communi mg-acetamin mg-acetamin mg-acetami ty ophen 325 ophen 325 nophen 325 Hospita mg tablet mg tablet mg tablet l TAKE ONE TAKE ONE TAKE ONE Cli nics (1) TABLET (1) TABLET (1) TABLET BY MOUTH BY MOUTH BY MOUTH EVERY SIX EVERY SIX EVERY SIX HOURS HOURS HOURS NEEDED FOR NEEDED FOR NEEDED FOR PAIN. MAX PAIN. MAX PAIN. MAX OF 4 TABS A OF 4 TABS A OF 4 TABS DAY. DAY. A DAY. Kenalog 40 Kenalog 40 No 2mL Kenalog 40 [place] mg/mL mg/mL mg/mL [facility] suspension suspension suspension ty for for for Hospita injection injection injection l Take 2 mL Take 2 mL Take 2 mL Clinics by by by injection injection injection route. route. route. losartan 50 losartan 50 No losartan [place] mg tablet mg tablet 50 mg Comm uni TAKE ONE TAKE ONE tablet ty (1) (1) TAKE ONE Hospita TABLET(S) TABLET(S) (1) l BY MOUTH BY MOUTH TABLET(S) Cl inics ONCE A DAY. ONCE A DAY. BY MOUTH ONCE A DAY. montelukast montelukast No montelukas [place] 10 mg 10 mg t 10 mg [facility] tablet TAKE tablet TAKE tablet ty ONE (1) ONE (1) TAKE ONE Hospi ta TABLET(S) TABLET(S) (1) l BY MOUTH BY MOUTH TABLET(S) Cl inics EVERY EVERY BY MOUTH MORNING. MORNING. EVERY MORNING. Mucinex Mucinex No Mucinex [place] [facility] l Clinics mupirocin 2 mupirocin 2 No mupirocin [place] % topical % topical 2 % Com[facility] ni ointment ointment topical ty APPLY TO APPLY TO ointment [facility] AFFECTED AFFECTED APPLY TO l AREA TWICE AREA TWICE AFFECTED Clinics A DAY A DAY AREA TWICE NEEDED. NEEDED. A DAY NEEDED. naproxen naproxen No naproxen [facility] 500 mg 500 mg 500 mg [facility] tablet TAKE tablet TAKE tablet ty ONE (1) ONE (1) TAKE ONE Hospi ta TABLET(S) TABLET(S) (1) l BY MOUTH BY MOUTH TABLET(S) Cl inics TWICE A DAY TWICE A DAY BY MOUTH WITH MEALS. WITH MEALS. TWICE A DAY WITH MEALS. omeprazole omeprazole No omeprazole [place] 10 mg 10 mg 10 mg [facility] capsule,del capsule,del capsule,de ty ayed ayed layed Hospita release release release l TAKE ONE TAKE ONE TAKE ONE Cli nics (1) (1) (1) CAPSULE(S) CAPSULE(S) CAPSULE(S) BY MOUTH BY MOUTH BY MOUTH TWICE A TWICE A TWICE A DAY. DAY. DAY. One A Day One A Day No One A Day [place] Vitamin Vitamin Vitamin Commun i Daily Daily Daily ty [facility] Probiotic Probiotic No Probiotic [place] Commun[facility] ty [facility] spironolact spironolact No spironolac [place] one 25 mg one 25 mg tone 25 mg [facility]i tablet TAKE tablet TAKE tablet ty ONE (1) ONE (1) TAKE ONE Hospi ta TABLET(S) TABLET(S) (1) l BY MOUTH BY MOUTH TABLET(S) Cl inics ONCE A DAY. ONCE A DAY. BY MOUTH ONCE A DAY. tramadol 50 tramadol 50 No tramadol [place] mg tablet mg tablet 50 mg Comm uni TAKE ONE TAKE ONE tablet ty (1) (1) TAKE ONE Hospita TABLET(S) TABLET(S) (1) l BY MOUTH BY MOUTH TABLET(S) Cl inics EVERY SIX EVERY SIX BY MOUTH HOURS HOURS EVERY SIX NEEDED FOR NEEDED FOR HOURS SEVERE SEVERE NEEDED FOR PAIN. PAIN. SEVERE PAIN. turmeric turmeric No turmeric Swe margy Commun[facility] Tylenol 325 Tylenol 325 No 2 Q6H Tylenol [place] mg tablet mg tablet 325 mg Com clarke Take 2 Take 2 tablet ty tablets tablets Take 2 Hospita every 6 every 6 tablets l hours by hours by every 6 Clin ics oral route oral route hours by as needed. as needed. oral route as needed. Vitamin D3 Vitamin D3 No Vitamin D3 [place] 5000 iu 5000 iu 5000 iu Commun i daily daily daily ty [facility] Zyrtec Zyrtec No Zyrtec [place] Commun[facility] ty [facility] atorvastati atorvastati No atorvastat [place] n 20 mg n 20 mg in 20 mg Commu ni tablet TAKE tablet TAKE tablet ty ONE (1) ONE (1) TAKE ONE Hospi ta TABLET(S) TABLET(S) (1) l BY MOUTH BY MOUTH TABLET(S) Cl inics ONCE A DAY. ONCE A DAY. BY MOUTH ONCE A DAY. Calcium 600 Calcium 600 No Calcium [place] daily daily 600 daily Communi ty [facility] carvedilol carvedilol No carvedilol [place] 25 mg 25 mg 25 mg [facility] tablet TAKE tablet TAKE tablet ty ONE (1) ONE (1) TAKE ONE Hospi ta TABLET(S) TABLET(S) (1) l BY MOUTH BY MOUTH TABLET(S) Cl inics TWICE A TWICE A BY MOUTH DAY. DAY. TWICE A DAY. furosemide furosemide No furosemide [place] 80 mg 80 mg 80 mg [facility] tablet TAKE tablet TAKE tablet ty ONE (1) ONE (1) TAKE ONE Hospi ta TABLET(S) TABLET(S) (1) l BY MOUTH BY MOUTH TABLET(S) Cl inics ONCE A DAY. ONCE A DAY. BY MOUTH ONCE A DAY. hydrocodone hydrocodone No hydrocodon [place] 5 5 e 5 [facility]i mg-acetamin mg-acetamin mg-acetami ty ophen 325 ophen 325 nophen 325 Hospita mg tablet mg tablet mg tablet l TAKE ONE TAKE ONE TAKE ONE Cli nics (1) TABLET (1) TABLET (1) TABLET BY MOUTH BY MOUTH BY MOUTH EVERY SIX EVERY SIX EVERY SIX HOURS HOURS HOURS NEEDED FOR NEEDED FOR NEEDED FOR PAIN. MAX PAIN. MAX PAIN. MAX OF 4 TABS A OF 4 TABS A OF 4 TABS DAY. DAY. A DAY. Kenalog 40 Kenalog 40 No 2mL Kenalog 40 [place] mg/mL mg/mL mg/mL [facility] suspension suspension suspension ty for for for Hospita injection injection injection l Take 2 mL Take 2 mL Take 2 mL Clinics by by by injection injection injection route. route. route. losartan 50 losartan 50 No losartan [place] mg tablet mg tablet 50 mg Comm uni TAKE ONE TAKE ONE tablet ty (1) (1) TAKE ONE Hospita TABLET(S) TABLET(S) (1) l BY MOUTH BY MOUTH TABLET(S) Cl inics ONCE A DAY. ONCE A DAY. BY MOUTH ONCE A DAY. montelukast montelukast No montelukas [place] 10 mg 10 mg t 10 mg [facility] tablet TAKE tablet TAKE tablet ty ONE (1) ONE (1) TAKE ONE Hospi ta TABLET(S) TABLET(S) (1) l BY MOUTH BY MOUTH TABLET(S) Cl inics EVERY EVERY BY MOUTH MORNING. MORNING. EVERY MORNING. Mucinex Mucinex No Mucinex [place] [facility] ty [facility] mupirocin 2 mupirocin 2 No mupirocin [place] % topical % topical 2 % Commu ni ointment ointment topical ty APPLY TO APPLY TO ointment [facility] AFFECTED AFFECTED APPLY TO l AREA TWICE AREA TWICE AFFECTED Clinics A DAY A DAY AREA TWICE NEEDED. NEEDED. A DAY NEEDED. naproxen naproxen No naproxen [facility] 500 mg 500 mg 500 mg [facility] tablet TAKE tablet TAKE tablet ty ONE (1) ONE (1) TAKE ONE Hospi ta TABLET(S) TABLET(S) (1) l BY MOUTH BY MOUTH TABLET(S) Cl inics TWICE A DAY TWICE A DAY BY MOUTH WITH MEALS. WITH MEALS. TWICE A DAY WITH MEALS. One A Day One A Day No One A Day [place] Vitamin Vitamin Vitamin Commun i Daily Daily Daily ty [facility] Probiotic Probiotic No Probiotic [place] [facility] Protonix 40 Protonix 40 No 1 Q1D Protonix [place] mg mg 40 mg Communi tablet,kennedy tablet,kennedy tablet,del ty yed release yed release ayed H ospita Take 1 Take 1 release l tablet tablet Take 1 Clinics every day every day tablet by oral by oral every day route. route. by oral route. spironolact spironolact No spironolac [place] one 25 mg one 25 mg tone 25 mg [facility] tablet TAKE tablet TAKE tablet ty ONE (1) ONE (1) TAKE ONE Hospi ta TABLET(S) TABLET(S) (1) l BY MOUTH BY MOUTH TABLET(S) Cl inics ONCE A DAY. ONCE A DAY. BY MOUTH ONCE A DAY. tramadol 50 tramadol 50 No tramadol [place] mg tablet mg tablet 50 mg Comm uni TAKE ONE TAKE ONE tablet ty (1) (1) TAKE ONE Hospita TABLET(S) TABLET(S) (1) l BY MOUTH BY MOUTH TABLET(S) Cl inics EVERY SIX EVERY SIX BY MOUTH HOURS HOURS EVERY SIX NEEDED FOR NEEDED FOR HOURS SEVERE SEVERE NEEDED FOR PAIN. PAIN. SEVERE PAIN. turmeric turmeric No turmeric Swe margy Communi ty [facility] Tylenol 325 Tylenol 325 No 2 Q6H Tylenol [place] mg tablet mg tablet 325 mg Com clarke Take 2 Take 2 tablet ty tablets tablets Take 2 Hospita every 6 every 6 tablets l hours by hours by every 6 Clin ics oral route oral route hours by as needed. as needed. oral route as needed. Vitamin D3 Vitamin D3 No Vitamin D3 [place] 5000 iu 5000 iu 5000 iu Commun i daily daily daily ty [facility] Z[facility] No Zyrtec [place] [facility] ty [facility] atorvastati atorvastati No atorvastat [place] n 20 mg n 20 mg in 20 mg Commu ni tablet TAKE tablet TAKE tablet ty ONE (1) ONE (1) TAKE ONE Hospi ta TABLET(S) TABLET(S) (1) l BY MOUTH BY MOUTH TABLET(S) Cl inics ONCE A DAY. ONCE A DAY. BY MOUTH ONCE A DAY. Calcium 600 Calcium 600 No Calcium [place] daily daily 600 daily Communi ty [facility] carvedilol carvedilol No carvedilol [place] 25 mg 25 mg 25 mg [facility] tablet TAKE tablet TAKE tablet ty ONE (1) ONE (1) TAKE ONE Hospi ta TABLET(S) TABLET(S) (1) l BY MOUTH BY MOUTH TABLET(S) Cl inics TWICE A TWICE A BY MOUTH DAY. DAY. TWICE A DAY. cyanocobala cyanocobala No 1mL cyanocobal [place] min (vit min (vit josue (vit Co mmuni B-12) 1,000 B-12) 1,000 B-12) ty mcg/mL mcg/mL 1,000 Hospita injection injection mcg/mL l solution solution injection Cl inics Inject 1 mL Inject 1 mL solution every month every month Inject 1 by by mL every subcutaneou subcutaneou month by s route. s route. subcutaneo us route. furosemide furosemide No furosemide [place] 80 mg 80 mg 80 mg [facility] tablet TAKE tablet TAKE tablet ty ONE (1) ONE (1) TAKE ONE Hospi ta TABLET(S) TABLET(S) (1) l BY MOUTH BY MOUTH TABLET(S) Cl inics ONCE A DAY. ONCE A DAY. BY MOUTH ONCE A DAY. hydrocodone hydrocodone No hydrocodon [place] 5 5 e 5 Communi mg-acetamin mg-acetamin mg-acetami ty ophen 325 ophen 325 nophen 325 Hospita mg tablet mg tablet mg tablet l TAKE ONE TAKE ONE TAKE ONE Cli nics (1) TABLET (1) TABLET (1) TABLET BY MOUTH BY MOUTH BY MOUTH EVERY SIX EVERY SIX EVERY SIX HOURS HOURS HOURS NEEDED FOR NEEDED FOR NEEDED FOR PAIN. MAX PAIN. MAX PAIN. MAX OF 4 TABS A OF 4 TABS A OF 4 TABS DAY. DAY. A DAY. Kenalog 40 Kenalog 40 No 2mL Kenalog 40 [place] mg/mL mg/mL mg/mL [facility] suspension suspension suspension ty for for for Hospita injection injection injection l Take 2 mL Take 2 mL Take 2 mL Clinics by by by injection injection injection route. route. route. losartan 50 losartan 50 No losartan [place] mg tablet mg tablet 50 mg Comm uni TAKE ONE TAKE ONE tablet ty (1) (1) TAKE ONE Hospita TABLET(S) TABLET(S) (1) l BY MOUTH BY MOUTH TABLET(S) Cl inics ONCE A DAY. ONCE A DAY. BY MOUTH ONCE A DAY. montelukast montelukast No montelukas [place] 10 mg 10 mg t 10 mg [facility] tablet TAKE tablet TAKE tablet ty ONE (1) ONE (1) TAKE ONE Hospi ta TABLET(S) TABLET(S) (1) l BY MOUTH BY MOUTH TABLET(S) Cl inics EVERY EVERY BY MOUTH MORNING. MORNING. EVERY MORNING. Mucinex Mucinex No Mucinex [place] [facility] l Clinics mupirocin 2 mupirocin 2 No mupirocin [place] % topical % topical 2 % Commu ni ointment ointment topical ty APPLY TO APPLY TO ointment [facility] AFFECTED AFFECTED APPLY TO l AREA TWICE AREA TWICE AFFECTED Clinics A DAY A DAY AREA TWICE NEEDED. NEEDED. A DAY NEEDED. naproxen naproxen No naproxen [facility] 500 mg 500 mg 500 mg [facility] tablet TAKE tablet TAKE tablet ty ONE (1) ONE (1) TAKE ONE Hospi ta TABLET(S) TABLET(S) (1) l BY MOUTH BY MOUTH TABLET(S) Cl inics TWICE A DAY TWICE A DAY BY MOUTH WITH MEALS. WITH MEALS. TWICE A DAY WITH MEALS. One A Day One A Day No One A Day [place] Vitamin Vitamin Vitamin Commun i Daily Daily Daily [facility] Probiotic Probiotic No Probiotic [place] [facility] Protonix 40 Protonix 40 No 1 Q1D Protonix [place] mg mg 40 mg Commun[facility] tablet,kennedy tablet,kennedy tablet,del ty yed release yed release ayed H ospita Take 1 Take 1 release l tablet tablet Take 1 Clinics every day every day tablet by oral by oral every day route. route. by oral route. spironolact spironolact No spironolac [place] one 25 mg one 25 mg tone 25 mg [facility] tablet TAKE tablet TAKE tablet ty ONE (1) ONE (1) TAKE ONE Hospi ta TABLET(S) TABLET(S) (1) l BY MOUTH BY MOUTH TABLET(S) Cl inics ONCE A DAY. ONCE A DAY. BY MOUTH ONCE A DAY. tramadol 50 tramadol 50 No tramadol [place] mg tablet mg tablet 50 mg Comm uni TAKE ONE TAKE ONE tablet ty (1) (1) TAKE ONE Hospita TABLET(S) TABLET(S) (1) l BY MOUTH BY MOUTH TABLET(S) Cl inics EVERY SIX EVERY SIX BY MOUTH HOURS HOURS EVERY SIX NEEDED FOR NEEDED FOR HOURS SEVERE SEVERE NEEDED FOR PAIN. PAIN. SEVERE PAIN. turmeric turmeric No turmeric Swe margy [facility] Tylenol 325 Tylenol 325 No 2 Q6H Tylenol [place] mg tablet mg tablet 325 mg Com clarke Take 2 Take 2 tablet ty tablets tablets Take 2 Hospita every 6 every 6 tablets l hours by hours by every 6 Clin ics oral route oral route hours by as needed. as needed. oral route as needed. Vitamin D3 Vitamin D3 No Vitamin D3 [place] 5000 iu 5000 iu 5000 iu Commun i daily daily daily ty [facility] Zyrtec Zyrtec No Zyrte [place] [facility] atorvastati atorvastati No atorvastat [place] n 20 mg n 20 mg in 20 mg Commu ni tablet TAKE tablet TAKE tablet ty ONE (1) ONE (1) TAKE ONE Hospi ta TABLET(S) TABLET(S) (1) l BY MOUTH BY MOUTH TABLET(S) Cl inics ONCE A DAY. ONCE A DAY. BY MOUTH ONCE A DAY. Calcium 600 Calcium 600 No Calcium [place] daily daily 600 daily Communi ty [facility] carvedilol carvedilol No carvedilol [place] 25 mg 25 mg 25 mg [facility] tablet TAKE tablet TAKE tablet ty ONE (1) ONE (1) TAKE ONE Hospi ta TABLET(S) TABLET(S) (1) l BY MOUTH BY MOUTH TABLET(S) Cl inics TWICE A TWICE A BY MOUTH DAY. DAY. TWICE A DAY. cyanocobala cyanocobala No 1mL cyanocobal [place] min (vit min (vit josue (vit Co mmuni B-12) 1,000 B-12) 1,000 B-12) ty mcg/mL mcg/mL 1,000 Hospita injection injection mcg/mL l solution solution injection Cl inics Inject 1 mL Inject 1 mL solution every month every month Inject 1 by by mL every subcutaneou subcutaneou month by s route. s route. subcutaneo us route. furosemide furosemide No furosemide [place] 80 mg 80 mg 80 mg [facility] tablet TAKE tablet TAKE tablet ty ONE (1) ONE (1) TAKE ONE Hospi ta TABLET(S) TABLET(S) (1) l BY MOUTH BY MOUTH TABLET(S) Cl inics ONCE A DAY. ONCE A DAY. BY MOUTH ONCE A DAY. hydrocodone hydrocodone No hydrocodon [place] 5 5 e 5 [facility]i mg-acetamin mg-acetamin mg-acetami ty ophen 325 ophen 325 nophen 325 Hospita mg tablet mg tablet mg tablet l TAKE ONE TAKE ONE TAKE ONE Cli nics (1) TABLET (1) TABLET (1) TABLET BY MOUTH BY MOUTH BY MOUTH EVERY SIX EVERY SIX EVERY SIX HOURS HOURS HOURS NEEDED FOR NEEDED FOR NEEDED FOR PAIN. MAX PAIN. MAX PAIN. MAX OF 4 TABS A OF 4 TABS A OF 4 TABS DAY. DAY. A DAY. Kenalog 40 Kenalog 40 No 2mL Kenalog 40 [place] mg/mL mg/mL mg/mL [facility] suspension suspension suspension ty for for for Hospita injection injection injection l Take 2 mL Take 2 mL Take 2 mL Clinics by by by injection injection injection route. route. route. losartan 50 losartan 50 No losartan [place] mg tablet mg tablet 50 mg Comm uni TAKE ONE TAKE ONE tablet ty (1) (1) TAKE ONE Hospita TABLET(S) TABLET(S) (1) l BY MOUTH BY MOUTH TABLET(S) Cl inics ONCE A DAY. ONCE A DAY. BY MOUTH ONCE A DAY. montelukast montelukast No montelukas [place] 10 mg 10 mg t 10 mg [facility] tablet TAKE tablet TAKE tablet ty ONE (1) ONE (1) TAKE ONE Hospi ta TABLET(S) TABLET(S) (1) l BY MOUTH BY MOUTH TABLET(S) Cl inics EVERY EVERY BY MOUTH MORNING. MORNING. EVERY MORNING. Mucinex Mucinex No Mucinex [place] [facility] ty [facility] Clinics mupirocin 2 mupirocin 2 No mupirocin [place] % topical % topical 2 % Commu ni ointment ointment topical ty APPLY TO APPLY TO ointment [facility] AFFECTED AFFECTED APPLY TO l AREA TWICE AREA TWICE AFFECTED Clinics A DAY A DAY AREA TWICE NEEDED. NEEDED. A DAY NEEDED. naproxen naproxen No naproxen [facility] 500 mg 500 mg 500 mg [facility] tablet TAKE tablet TAKE tablet ty ONE (1) ONE (1) TAKE ONE Hospi ta TABLET(S) TABLET(S) (1) l BY MOUTH BY MOUTH TABLET(S) Cl inics TWICE A DAY TWICE A DAY BY MOUTH WITH MEALS. WITH MEALS. TWICE A DAY WITH MEALS. omeprazole omeprazole No 1capsul Q1D omeprazole [place] 20 mg 20 mg e(s) 20 mg Communi capsule,del capsule,del capsule,de ty ayed ayed layed Hospita release release release l Take 1 Take 1 Take 1 Clinics capsule capsule capsule every day every day every day by oral by oral by oral route for route for route for 90 days. 90 days. 90 days. One A Day One A Day No One A Day [place] Vitamin Vitamin Vitamin Commun i Daily Daily Daily ty [facility] Probiotic Probiotic No Probiotic [place] Communi ty [facility] spironolact spironolact No spironolac [place] one 25 mg one 25 mg tone 25 mg [facility]i tablet TAKE tablet TAKE tablet ty ONE (1) ONE (1) TAKE ONE Hospi ta TABLET(S) TABLET(S) (1) l BY MOUTH BY MOUTH TABLET(S) Cl inics ONCE A DAY. ONCE A DAY. BY MOUTH ONCE A DAY. tramadol 50 tramadol 50 No tramadol [place] mg tablet mg tablet 50 mg Comm uni TAKE ONE TAKE ONE tablet ty (1) (1) TAKE ONE Hospita TABLET(S) TABLET(S) (1) l BY MOUTH BY MOUTH TABLET(S) Cl inics EVERY SIX EVERY SIX BY MOUTH HOURS HOURS EVERY SIX NEEDED FOR NEEDED FOR HOURS SEVERE SEVERE NEEDED FOR PAIN. PAIN. SEVERE PAIN. turmeric turmeric No turmeric Swe margy [facility] Tylenol 325 Tylenol 325 No 2 Q6H Tylenol [place] mg tablet mg tablet 325 mg Com clarke Take 2 Take 2 tablet ty tablets tablets Take 2 Hospita every 6 every 6 tablets l hours by hours by every 6 Clin ics oral route oral route hours by as needed. as needed. oral route as needed. Vitamin D3 Vitamin D3 No Vitamin D3 [place] 5000 iu 5000 iu 5000 iu Commun i daily daily daily [facility] Zyrtec Zyrtec No [facility]tec [facility] atorvastati atorvastati No atorvastat [place] n 20 mg n 20 mg in 20 mg Commu ni tablet TAKE tablet TAKE tablet ty ONE (1) ONE (1) TAKE ONE Hospi ta TABLET(S) TABLET(S) (1) l BY MOUTH BY MOUTH TABLET(S) Cl inics ONCE A DAY. ONCE A DAY. BY MOUTH ONCE A DAY. Calcium 600 Calcium 600 No Calcium [place] daily daily 600 daily [facility] carvedilol carvedilol No carvedilol [place] 25 mg 25 mg 25 mg [facility] tablet TAKE tablet TAKE tablet ty ONE (1) ONE (1) TAKE ONE Hospi ta TABLET(S) TABLET(S) (1) l BY MOUTH BY MOUTH TABLET(S) Cl inics TWICE A TWICE A BY MOUTH DAY. DAY. TWICE A DAY. cyanocobala cyanocobala No 1mL cyanocobal [place] min (vit min (vit josue (vit Co mmuni B-12) 1,000 B-12) 1,000 B-12) ty mcg/mL mcg/mL 1,000 Hospita injection injection mcg/mL l solution solution injection Cl inics Inject 1 mL Inject 1 mL solution every month every month Inject 1 by by mL every subcutaneou subcutaneou month by s route. s route. subcutaneo us route. furosemide furosemide No furosemide [place] 80 mg 80 mg 80 mg [facility] tablet TAKE tablet TAKE tablet ty ONE (1) ONE (1) TAKE ONE Hospi ta TABLET(S) TABLET(S) (1) l BY MOUTH BY MOUTH TABLET(S) Cl inics ONCE A DAY. ONCE A DAY. BY MOUTH ONCE A DAY. hydrocodone hydrocodone No hydrocodon [place] 5 5 e 5 Communi mg-acetamin mg-acetamin mg-acetami ty ophen 325 ophen 325 nophen 325 Hospita mg tablet mg tablet mg tablet l TAKE ONE TAKE ONE TAKE ONE Cli nics (1) TABLET (1) TABLET (1) TABLET BY MOUTH BY MOUTH BY MOUTH EVERY SIX EVERY SIX EVERY SIX HOURS HOURS HOURS NEEDED FOR NEEDED FOR NEEDED FOR PAIN. MAX PAIN. MAX PAIN. MAX OF 4 TABS A OF 4 TABS A OF 4 TABS DAY. DAY. A DAY. Kenalog 40 Kenalog 40 No 2mL Kenalog 40 [place] mg/mL mg/mL mg/mL Communi suspension suspension suspension ty for for for Hospita injection injection injection l Take 2 mL Take 2 mL Take 2 mL Clinics by by by injection injection injection route. route. route. losartan 50 losartan 50 No losartan [place] mg tablet mg tablet 50 mg Comm uni TAKE ONE TAKE ONE tablet ty (1) (1) TAKE ONE Hospita TABLET(S) TABLET(S) (1) l BY MOUTH BY MOUTH TABLET(S) Cl inics ONCE A DAY. ONCE A DAY. BY MOUTH ONCE A DAY. montelukast montelukast No montelukas [place] 10 mg 10 mg t 10 mg [facility]i tablet TAKE tablet TAKE tablet ty ONE (1) ONE (1) TAKE ONE Hospi ta TABLET(S) TABLET(S) (1) l BY MOUTH BY MOUTH TABLET(S) Cl inics EVERY EVERY BY MOUTH MORNING. MORNING. EVERY MORNING. Mucinex Mucinex No Mucinex [place] Communi ty [facility] mupirocin 2 mupirocin 2 No mupirocin [place] % topical % topical 2 % Commu ni ointment ointment topical ty APPLY TO APPLY TO ointment [facility] AFFECTED AFFECTED APPLY TO l AREA TWICE AREA TWICE AFFECTED Clinics A DAY A DAY AREA TWICE NEEDED. NEEDED. A DAY NEEDED. naproxen naproxen No naproxen [facility] 500 mg 500 mg 500 mg [facility] tablet TAKE tablet TAKE tablet ty ONE (1) ONE (1) TAKE ONE Hospi ta TABLET(S) TABLET(S) (1) l BY MOUTH BY MOUTH TABLET(S) Cl inics TWICE A DAY TWICE A DAY BY MOUTH WITH MEALS. WITH MEALS. TWICE A DAY WITH MEALS. omeprazole omeprazole No omeprazole [place] 20 mg 20 mg 20 mg Communi capsule,del capsule,del capsule,de ty ayed ayed layed Hospita release release release l Take 1 Take 1 Take 1 Clinics capsule capsule capsule every day every day every day by oral by oral by oral route for route for route for 90 days. 90 days. 90 days. One A Day One A Day No One A Day [place] Vitamin Vitamin Vitamin Commun i Daily Daily Daily [facility] Probiotic Probiotic No Probiotic [place] [facility] spironolact spironolact No spironolac [place] one 25 mg one 25 mg tone 25 mg Communi tablet TAKE tablet TAKE tablet ty ONE (1) ONE (1) TAKE ONE Hospi ta TABLET(S) TABLET(S) (1) l BY MOUTH BY MOUTH TABLET(S) Cl inics ONCE A DAY. ONCE A DAY. BY MOUTH ONCE A DAY. tramadol 50 tramadol 50 No tramadol [place] mg tablet mg tablet 50 mg Comm uni TAKE ONE TAKE ONE tablet ty (1) (1) TAKE ONE Hospita TABLET(S) TABLET(S) (1) l BY MOUTH BY MOUTH TABLET(S) Cl inics EVERY SIX EVERY SIX BY MOUTH HOURS HOURS EVERY SIX NEEDED FOR NEEDED FOR HOURS SEVERE SEVERE NEEDED FOR PAIN. PAIN. SEVERE PAIN. turmeric turmeric No turmeric Swe margy Communi [facility] Tylenol 325 Tylenol 325 No 2 Q6H Tylenol [place] mg tablet mg tablet 325 mg Com clarke Take 2 Take 2 tablet ty tablets tablets Take 2 Hospita every 6 every 6 tablets l hours by hours by every 6 Clin ics oral route oral route hours by as needed. as needed. oral route as needed. Vitamin D3 Vitamin D3 No Vitamin D3 [place] 5000 iu 5000 iu 5000 iu Commun i daily daily daily ty [facility] Zyrtec Zyrtec No Zyrtec [place] Communi ty [facility] atorvastati atorvastati No atorvastat [place] n 20 mg n 20 mg in 20 mg Commu ni tablet TAKE tablet TAKE tablet ty ONE (1) ONE (1) TAKE ONE Hospi ta TABLET(S) TABLET(S) (1) l BY MOUTH BY MOUTH TABLET(S) Cl inics ONCE A DAY. ONCE A DAY. BY MOUTH ONCE A DAY. Calcium 600 Calcium 600 No Calcium [place] daily daily 600 daily Communi ty [facility] carvedilol carvedilol No carvedilol [place] 25 mg 25 mg 25 mg [facility]i tablet TAKE tablet TAKE tablet ty ONE (1) ONE (1) TAKE ONE Hospi ta TABLET(S) TABLET(S) (1) l BY MOUTH BY MOUTH TABLET(S) Cl inics TWICE A TWICE A BY MOUTH DAY. DAY. TWICE A DAY. cyanocobala cyanocobala No 1mL cyanocobal [place] min (vit min (vit josue (vit Co mmuni B-12) 1,000 B-12) 1,000 B-12) ty mcg/mL mcg/mL 1,000 Hospita injection injection mcg/mL l solution solution injection Cl inics Inject 1 mL Inject 1 mL solution every month every month Inject 1 by by mL every subcutaneou subcutaneou month by s route. s route. subcutaneo us route. furosemide furosemide No furosemide [place] 80 mg 80 mg 80 mg [facility]i tablet TAKE tablet TAKE tablet ty ONE (1) ONE (1) TAKE ONE Hospi ta TABLET(S) TABLET(S) (1) l BY MOUTH BY MOUTH TABLET(S) Cl inics ONCE A DAY. ONCE A DAY. BY MOUTH ONCE A DAY. hydrocodone hydrocodone No hydrocodon [facility] 5 5 e 5 Communi mg-acetamin mg-acetamin mg-acetami ty ophen 325 ophen 325 nophen 325 Hospita mg tablet mg tablet mg tablet l TAKE ONE TAKE ONE TAKE ONE Cli nics (1) TABLET (1) TABLET (1) TABLET BY MOUTH BY MOUTH BY MOUTH EVERY SIX EVERY SIX EVERY SIX HOURS HOURS HOURS NEEDED FOR NEEDED FOR NEEDED FOR PAIN. MAX PAIN. MAX PAIN. MAX OF 4 TABS A OF 4 TABS A OF 4 TABS DAY. DAY. A DAY. Kenalog 40 Kenalog 40 No 2mL Kenalog 40 [place] mg/mL mg/mL mg/mL Communi suspension suspension suspension ty for for for Hospita injection injection injection l Take 2 mL Take 2 mL Take 2 mL Clinics by by by injection injection injection route. route. route. losartan 50 losartan 50 No losartan [place] mg tablet mg tablet 50 mg Comm uni TAKE ONE TAKE ONE tablet ty (1) (1) TAKE ONE [facility]ospita TABLET(S) TABLET(S) (1) l BY MOUTH BY MOUTH TABLET(S) Cl inics ONCE A DAY. ONCE A DAY. BY MOUTH ONCE A DAY. montelukast montelukast No montelukas [place] 10 mg 10 mg t 10 mg Communi tablet TAKE tablet TAKE tablet ty ONE (1) ONE (1) TAKE ONE Hospi ta TABLET(S) TABLET(S) (1) l BY MOUTH BY MOUTH TABLET(S) Cl inics EVERY EVERY BY MOUTH MORNING. MORNING. EVERY MORNING. Mucinex Mucinex No Mucinex [facility] mupirocin 2 mupirocin 2 No mupirocin [facility] % topical % topical 2 % [facility] ni ointment ointment topical ty APPLY TO APPLY TO ointment [facility] AFFECTED AFFECTED APPLY TO l AREA TWICE AREA TWICE AFFECTED Clinics A DAY A DAY AREA TWICE NEEDED. NEEDED. A DAY NEEDED. naproxen naproxen No naproxen [facility] 500 mg 500 mg 500 mg [facility] tablet TAKE tablet TAKE tablet ty ONE (1) ONE (1) TAKE ONE Hospi ta TABLET(S) TABLET(S) (1) l BY MOUTH BY MOUTH TABLET(S) Cl inics TWICE A DAY TWICE A DAY BY MOUTH WITH MEALS. WITH MEALS. TWICE A DAY WITH MEALS. omeprazole omeprazole No omeprazole [facility] 20 mg 20 mg 20 mg [facility] capsule,del capsule,del capsule,de ty ayed ayed layed Hospita release release release l TAKE ONE TAKE ONE TAKE ONE Cli nics (1) (1) (1) CAPSULE(S) CAPSULE(S) CAPSULE(S) BY MOUTH BY MOUTH BY MOUTH ONCE A DAY. ONCE A DAY. ONCE A DAY. One A Day One A Day No One A Day [facility] Vitamin Vitamin Commun i Daily Daily Daily ty [facility] Probiotic Probiotic No Probiotic [facility] spironolact spironolact No spironolac [facility] one 25 mg one 25 mg tone 25 mg [facility] tablet TAKE tablet TAKE tablet ty ONE (1) ONE (1) TAKE ONE Hospi ta TABLET(S) TABLET(S) (1) l BY MOUTH BY MOUTH TABLET(S) Cl inics ONCE A DAY. ONCE A DAY. BY MOUTH ONCE A DAY. tramadol 50 tramadol 50 No tramadol [facility] mg tablet mg tablet 50 mg Comm uni TAKE ONE TAKE ONE tablet ty (1) (1) TAKE ONE Hospita TABLET(S) TABLET(S) (1) l BY MOUTH BY MOUTH TABLET(S) Cl inics EVERY SIX EVERY SIX BY MOUTH HOURS HOURS EVERY SIX NEEDED FOR NEEDED FOR HOURS SEVERE SEVERE NEEDED FOR PAIN. PAIN. SEVERE PAIN. turmeric turmeric No turmeric [facility] Tylenol 325 Tylenol 325 No 2 Q6H Tylenol [facility] mg tablet mg tablet 325 mg Com clarke Take 2 Take 2 tablet ty tablets tablets Take 2 Hospita every 6 every 6 tablets l hours by hours by every 6 Clin ics oral route oral route hours by as needed. as needed. oral route as needed. Vitamin D3 Vitamin D3 No Vitamin D3 [facility] 5000 iu 5000 iu 5000 iu Commun i daily daily daily ty [facility] Zyrtec Zyrtec No Zyrtec [facility] atorvastati atorvastati No atorvastat [facility] n 20 mg n 20 mg in 20 mg Com[facility] ni tablet TAKE tablet TAKE tablet ty ONE (1) ONE (1) TAKE ONE Hospi ta TABLET(S) TABLET(S) (1) l BY MOUTH BY MOUTH TABLET(S) Cl inics ONCE A DAY. ONCE A DAY. BY MOUTH ONCE A DAY. Calcium 600 Calcium 600 No Calcium [facility] daily daily 600 daily [facility] carvedilol carvedilol No carvedilol [facility] 25 mg 25 mg 25 mg [facility] tablet TAKE tablet TAKE tablet ty ONE (1) ONE (1) TAKE ONE Hospi ta TABLET(S) TABLET(S) (1) l BY MOUTH BY MOUTH TABLET(S) Cl inics TWICE A TWICE A BY MOUTH DAY. DAY. TWICE A DAY. cyanocobala cyanocobala No 1mL cyanocobal [facility] min (vit min (vit josue (vit Co mmuni B-12) 1,000 B-12) 1,000 B-12) ty mcg/mL mcg/mL 1,000 Hospita injection injection mcg/mL l solution solution injection Cl inics Inject 1 mL Inject 1 mL solution every month every month Inject 1 by by mL every subcutaneou subcutaneou month by s route. s route. subcutaneo us route. furosemide furosemide No furosemide [facility] 80 mg 80 mg 80 mg [facility] tablet TAKE tablet TAKE tablet ty ONE (1) ONE (1) TAKE ONE Hospi ta TABLET(S) TABLET(S) (1) l BY MOUTH BY MOUTH TABLET(S) Cl inics ONCE A DAY. ONCE A DAY. BY MOUTH ONCE A DAY. hydrocodone hydrocodone No hydrocodon [facility] 5 5 e 5 Communi mg-acetamin mg-acetamin mg-acetami ty ophen 325 ophen 325 nophen 325 [facility]ospita mg tablet mg tablet mg tablet l TAKE ONE TAKE ONE TAKE ONE Cli nics (1) TABLET (1) TABLET (1) TABLET BY MOUTH BY MOUTH BY MOUTH EVERY SIX EVERY SIX EVERY SIX HOURS HOURS HOURS NEEDED FOR NEEDED FOR NEEDED FOR PAIN. MAX PAIN. MAX PAIN. MAX OF 4 TABS A OF 4 TABS A OF 4 TABS DAY. DAY. A DAY. losartan 50 losartan 50 No losartan [facility] mg tablet mg tablet 50 mg Comm uni TAKE ONE TAKE ONE tablet ty (1) (1) TAKE ONE Hospita TABLET(S) TABLET(S) (1) l BY MOUTH BY MOUTH TABLET(S) Cl inics ONCE A DAY. ONCE A DAY. BY MOUTH ONCE A DAY. montelukast montelukast No montelukas [facility] 10 mg 10 mg t 10 mg [facility] tablet TAKE tablet TAKE tablet ty ONE (1) ONE (1) TAKE ONE Hospi ta TABLET(S) TABLET(S) (1) l BY MOUTH BY MOUTH TABLET(S) Cl inics EVERY EVERY BY MOUTH MORNING. MORNING. EVERY MORNING. Mucinex Mucinex No Mucinex [facility] mupirocin 2 mupirocin 2 No mupirocin [facility] % topical % topical 2 % [facility] ni ointment ointment topical ty APPLY TO APPLY TO ointment [facility] AFFECTED AFFECTED APPLY TO l AREA TWICE AREA TWICE AFFECTED Clinics A DAY A DAY AREA TWICE NEEDED. NEEDED. A DAY NEEDED. naproxen naproxen No naproxen [facility] 500 mg 500 mg 500 mg [facility] tablet TAKE tablet TAKE tablet ty ONE (1) ONE (1) TAKE ONE Hospi ta TABLET(S) TABLET(S) (1) l BY MOUTH BY MOUTH TABLET(S) Cl inics TWICE A DAY TWICE A DAY BY MOUTH WITH MEALS. WITH MEALS. TWICE A DAY WITH MEALS. omeprazole omeprazole No omeprazole [facility] 20 mg 20 mg 20 mg [facility] capsule,del capsule,del capsule,de ty ayed ayed layed Hospita release release release l TAKE ONE TAKE ONE TAKE ONE Cli nics (1) (1) (1) CAPSULE(S) CAPSULE(S) CAPSULE(S) BY MOUTH BY MOUTH BY MOUTH ONCE A DAY. ONCE A DAY. ONCE A DAY. One A Day One A Day No One A Day [facility] Vitamin Vitamin Vitamin Commun i Daily Daily Daily ty [facility] prednisone prednisone No 1 Q1D prednisone [facility] 10 mg 10 mg 10 mg Communi tablet Take tablet Take tablet ty 1 tablet 1 tablet Take 1 Hospi ta every day every day tablet l by oral by oral every day Clin ics route. route. by oral route. Probiotic Probiotic No Probiotic [facility] spironolact spironolact No spironolac [facility] one 25 mg one 25 mg tone 25 mg [facility] tablet TAKE tablet TAKE tablet ty ONE (1) ONE (1) TAKE ONE Hospi ta TABLET(S) TABLET(S) (1) l BY MOUTH BY MOUTH TABLET(S) Cl inics ONCE A DAY. ONCE A DAY. BY MOUTH ONCE A DAY. tramadol 50 tramadol 50 No tramadol [facility] mg tablet mg tablet 50 mg Comm uni TAKE ONE TAKE ONE tablet ty (1) (1) TAKE ONE Hospita TABLET(S) TABLET(S) (1) l BY MOUTH BY MOUTH TABLET(S) Cl inics EVERY SIX EVERY SIX BY MOUTH HOURS HOURS EVERY SIX NEEDED FOR NEEDED FOR HOURS SEVERE SEVERE NEEDED FOR PAIN. PAIN. SEVERE PAIN. turmeric turmeric No turmeric [facility] Tylenol 325 Tylenol 325 No 2 Q6H Tylenol [facility] mg tablet mg tablet 325 mg Com clarke Take 2 Take 2 tablet ty tablets tablets Take 2 Hospita every 6 every 6 tablets l hours by hours by every 6 Clin ics oral route oral route hours by as needed. as needed. oral route as needed. Vitamin D3 Vitamin D3 No Vitamin D3 [facility] 5000 iu 5000 iu 5000 iu Commun i daily daily daily ty [facility] Zyrtec Zyrtec No Zyrtec [facility] atorvastati atorvastati No atorvastat [facility] n 20 mg n 20 mg in 20 mg Com[facility] ni tablet TAKE tablet TAKE tablet ty ONE (1) ONE (1) TAKE ONE Hospi ta TABLET(S) TABLET(S) (1) l BY MOUTH BY MOUTH TABLET(S) Cl inics ONCE A DAY. ONCE A DAY. BY MOUTH ONCE A DAY. Calcium 600 Calcium 600 No Calcium [facility] daily daily 600 daily Communi ty [facility] carvedilol carvedilol No carvedilol [facility] 25 mg 25 mg 25 mg [facility] tablet TAKE tablet TAKE tablet ty ONE (1) ONE (1) TAKE ONE Hospi ta TABLET(S) TABLET(S) (1) l BY MOUTH BY MOUTH TABLET(S) Cl inics TWICE A TWICE A BY MOUTH DAY. DAY. TWICE A DAY. furosemide furosemide No furosemide [facility] 80 mg 80 mg 80 mg [facility] tablet TAKE tablet TAKE tablet ty ONE (1) ONE (1) TAKE ONE Hospi ta TABLET(S) TABLET(S) (1) l BY MOUTH BY MOUTH TABLET(S) Cl inics ONCE A DAY. ONCE A DAY. BY MOUTH ONCE A DAY. hydrocodone hydrocodone No hydrocodon [facility] 5 5 e 5 Communi mg-acetamin mg-acetamin mg-acetami ty ophen 325 ophen 325 nophen 325 Hospita mg tablet mg tablet mg tablet l TAKE ONE TAKE ONE TAKE ONE Cli nics (1) TABLET (1) TABLET (1) TABLET BY MOUTH BY MOUTH BY MOUTH EVERY SIX EVERY SIX EVERY SIX HOURS HOURS HOURS NEEDED FOR NEEDED FOR NEEDED FOR PAIN. MAX PAIN. MAX PAIN. MAX OF 4 TABS A OF 4 TABS A OF 4 TABS DAY. DAY. A DAY. losartan 50 losartan 50 No losartan [facility] mg tablet mg tablet 50 mg Comm uni TAKE ONE TAKE ONE tablet ty (1) (1) TAKE ONE Hospita TABLET(S) TABLET(S) (1) l BY MOUTH BY MOUTH TABLET(S) Cl inics ONCE A DAY. ONCE A DAY. BY MOUTH ONCE A DAY. montelukast montelukast No montelukas [facility] 10 mg 10 mg t 10 mg [facility] tablet TAKE tablet TAKE tablet ty ONE (1) ONE (1) TAKE ONE Hospi ta TABLET(S) TABLET(S) (1) l BY MOUTH BY MOUTH TABLET(S) Cl inics EVERY EVERY BY MOUTH MORNING. MORNING. EVERY MORNING. Mucinex Mucinex No Mucinex [facility] omeprazole omeprazole No omeprazole [facility] 20 mg 20 mg 20 mg [facility] capsule,del capsule,del capsule,de ty ayed ayed layed Hospita release release release l TAKE ONE TAKE ONE TAKE ONE Cli nics (1) (1) (1) CAPSULE(S) CAPSULE(S) CAPSULE(S) BY MOUTH BY MOUTH BY MOUTH ONCE A DAY. ONCE A DAY. ONCE A DAY. One A Day One A Day No One A Day [facility] Vitamin Vitamin Vitamin Commun i Daily Daily Daily ty [facility] Probiotic Probiotic No Probiotic [facility] spironolact spironolact No spironolac [facility] one 25 mg one 25 mg tone 25 mg [facility]i tablet TAKE tablet TAKE tablet ty ONE (1) ONE (1) TAKE ONE Hospi ta TABLET(S) TABLET(S) (1) l BY MOUTH BY MOUTH TABLET(S) Cl inics ONCE A DAY. ONCE A DAY. BY MOUTH ONCE A DAY. tramadol 50 tramadol 50 No tramadol [facility] mg tablet mg tablet 50 mg Comm uni TAKE ONE TAKE ONE tablet ty (1) (1) TAKE ONE Hospita TABLET(S) TABLET(S) (1) l BY MOUTH BY MOUTH TABLET(S) Cl inics EVERY SIX EVERY SIX BY MOUTH HOURS HOURS EVERY SIX NEEDED FOR NEEDED FOR HOURS SEVERE SEVERE NEEDED FOR PAIN. PAIN. SEVERE PAIN. turmeric turmeric No turmeric [facility] ty [facility] Tylenol 325 Tylenol 325 No 2 Q6H Tylenol [facility] mg tablet mg tablet 325 mg Com clarke Take 2 Take 2 tablet ty tablets tablets Take 2 Hospita every 6 every 6 tablets l hours by hours by every 6 Clin ics oral route oral route hours by as needed. as needed. oral route as needed. Vitamin D3 Vitamin D3 No Vitamin D3 [facility] 5000 iu 5000 iu 5000 iu Commun i daily daily daily ty [facility] Zyrtec Zyrtec No Zyrtec [facility] atorvastati atorvastati No atorvastat [facility] n 20 mg n 20 mg in 20 mg Commu ni tablet TAKE tablet TAKE tablet ty ONE (1) ONE (1) TAKE ONE Hospi ta TABLET(S) TABLET(S) (1) l BY MOUTH BY MOUTH TABLET(S) Cl inics ONCE A DAY. ONCE A DAY. BY MOUTH ONCE A DAY. Calcium 600 Calcium 600 No Calcium [facility] daily daily 600 daily Communi ty [facility] carvedilol carvedilol No carvedilol [facility] 25 mg 25 mg 25 mg [facility] tablet TAKE tablet TAKE tablet ty ONE (1) ONE (1) TAKE ONE Hospi ta TABLET(S) TABLET(S) (1) l BY MOUTH BY MOUTH TABLET(S) Cl inics TWICE A TWICE A BY MOUTH DAY. DAY. TWICE A DAY. furosemide furosemide No furosemide [facility] 80 mg 80 mg 80 mg [facility] tablet TAKE tablet TAKE tablet ty ONE (1) ONE (1) TAKE ONE Hospi ta TABLET(S) TABLET(S) (1) l BY MOUTH BY MOUTH TABLET(S) Cl inics ONCE A DAY. ONCE A DAY. BY MOUTH ONCE A DAY. hydrocodone hydrocodone No hydrocodon [facility] 5 5 e 5 Communi mg-acetamin mg-acetamin mg-acetami ty ophen 325 ophen 325 nophen 325 [facility]ospita mg tablet mg tablet mg tablet l TAKE ONE TAKE ONE TAKE ONE Cli nics (1) TABLET (1) TABLET (1) TABLET BY MOUTH BY MOUTH BY MOUTH EVERY SIX EVERY SIX EVERY SIX HOURS HOURS HOURS NEEDED FOR NEEDED FOR NEEDED FOR PAIN. MAX PAIN. MAX PAIN. MAX OF 4 TABS A OF 4 TABS A OF 4 TABS DAY. DAY. A DAY. Kenalog 40 Kenalog 40 No 2mL Kenalog 40 [facility] mg/mL mg/mL mg/mL Communi suspension suspension suspension ty for for for Hospita injection injection injection l Take 2 mL Take 2 mL Take 2 mL Clinics by by by injection injection injection route. route. route. losartan 50 losartan 50 No losartan [facility] mg tablet mg tablet 50 mg Comm uni TAKE ONE TAKE ONE tablet ty (1) (1) TAKE ONE Hospita TABLET(S) TABLET(S) (1) l BY MOUTH BY MOUTH TABLET(S) Cl inics ONCE A DAY. ONCE A DAY. BY MOUTH ONCE A DAY. montelukast montelukast No montelukas [facility] 10 mg 10 mg t 10 mg [facility] tablet TAKE tablet TAKE tablet ty ONE (1) ONE (1) TAKE ONE Hospi ta TABLET(S) TABLET(S) (1) l BY MOUTH BY MOUTH TABLET(S) Cl inics EVERY EVERY BY MOUTH MORNING. MORNING. EVERY MORNING. Mucinex Mucinex No Mucinex [facility] omeprazole omeprazole No omeprazole [facility] 20 mg 20 mg 20 mg [facility] capsule,del capsule,del capsule,de ty ayed ayed layed Hospita release release release l TAKE ONE TAKE ONE TAKE ONE Cli nics (1) (1) (1) CAPSULE(S) CAPSULE(S) CAPSULE(S) BY MOUTH BY MOUTH BY MOUTH ONCE A DAY. ONCE A DAY. ONCE A DAY. One A Day One A Day No One A Day [facility] Vitamin Vitamin Vitamin Commun i Daily Daily Daily [facility] Probiotic Probiotic No Probiotic [facility] spironolact spironolact No spironolac [facility] one 25 mg one 25 mg tone 25 mg [facility]i tablet TAKE tablet TAKE tablet ty ONE (1) ONE (1) TAKE ONE Hospi ta TABLET(S) TABLET(S) (1) l BY MOUTH BY MOUTH TABLET(S) Cl inics ONCE A DAY. ONCE A DAY. BY MOUTH ONCE A DAY. tramadol 50 tramadol 50 No tramadol [facility] mg tablet mg tablet 50 mg Comm uni TAKE ONE TAKE ONE tablet ty (1) (1) TAKE ONE Hospita TABLET(S) TABLET(S) (1) l BY MOUTH BY MOUTH TABLET(S) Cl inics EVERY SIX EVERY SIX BY MOUTH HOURS HOURS EVERY SIX NEEDED FOR NEEDED FOR HOURS SEVERE SEVERE NEEDED FOR PAIN. PAIN. SEVERE PAIN. turmeric turmeric No turmeric [facility] Commun[facility] ty [facility] Tylenol 325 Tylenol 325 No 2 Q6H Tylenol [facility] mg tablet mg tablet 325 mg Com clarke Take 2 Take 2 tablet ty tablets tablets Take 2 Hospita every 6 every 6 tablets l hours by hours by every 6 Clin ics oral route oral route hours by as needed. as needed. oral route as needed. Vitamin D3 Vitamin D3 No Vitamin D3 [facility] 5000 iu 5000 iu 5000 iu Commun i daily daily daily ty [facility] Zyrtec Zyrtec No Zyrtec [facility] atorvastati atorvastati No atorvastat [facility] n 20 mg n 20 mg in 20 mg Com[facility] ni tablet TAKE tablet TAKE tablet ty ONE (1) ONE (1) TAKE ONE Hospi ta TABLET(S) TABLET(S) (1) l BY MOUTH BY MOUTH TABLET(S) Cl inics ONCE A DAY. ONCE A DAY. BY MOUTH ONCE A DAY. biotin otc biotin otc No biotin otc [facility] 10,000 10,000 10,000 Communi daily. daily. daily. ty [facility] Calcium 600 Calcium 600 No Calcium [facility] daily daily 600 daily Communi [facility] carvedilol carvedilol No carvedilol [facility] 25 mg 25 mg 25 mg [facility] tablet TAKE tablet TAKE tablet ty ONE (1) ONE (1) TAKE ONE Hospi ta TABLET(S) TABLET(S) (1) l BY MOUTH BY MOUTH TABLET(S) Cl inics TWICE A TWICE A BY MOUTH DAY. DAY. TWICE A DAY. furosemide furosemide No furosemide [facility] 80 mg 80 mg 80 mg [facility] tablet TAKE tablet TAKE tablet ty ONE (1) ONE (1) TAKE ONE Hospi ta TABLET(S) TABLET(S) (1) l BY MOUTH BY MOUTH TABLET(S) Cl inics ONCE A DAY. ONCE A DAY. BY MOUTH ONCE A DAY. hydrocodone hydrocodone No hydrocodon [facility] 5 5 e 5 Communi mg-acetamin mg-acetamin mg-acetami ty ophen 325 ophen 325 nophen 325 Hospita mg tablet mg tablet mg tablet l TAKE ONE TAKE ONE TAKE ONE Cli nics (1) TABLET (1) TABLET (1) TABLET BY MOUTH BY MOUTH BY MOUTH EVERY SIX EVERY SIX EVERY SIX HOURS HOURS HOURS NEEDED FOR NEEDED FOR NEEDED FOR PAIN. MAX PAIN. MAX PAIN. MAX OF 4 TABS A OF 4 TABS A OF 4 TABS DAY. DAY. A DAY. losartan 50 losartan 50 No losartan [facility] mg tablet mg tablet 50 mg Comm uni TAKE ONE TAKE ONE tablet ty (1) (1) TAKE ONE Hospita TABLET(S) TABLET(S) (1) l BY MOUTH BY MOUTH TABLET(S) Cl inics ONCE A DAY. ONCE A DAY. BY MOUTH ONCE A DAY. meloxicam meloxicam No meloxicam [facility] 7.5 mg 7.5 mg 7.5 mg Communi tablet TAKE tablet TAKE tablet ty ONE (1) ONE (1) TAKE ONE Hospi ta TABLET(S) TABLET(S) (1) l BY MOUTH BY MOUTH TABLET(S) Cl inics ONCE A DAY. ONCE A DAY. BY MOUTH ONCE A DAY. montelukast montelukast No montelukas [facility] 10 mg 10 mg t 10 mg [facility] tablet TAKE tablet TAKE tablet ty ONE (1) ONE (1) TAKE ONE Hospi ta TABLET(S) TABLET(S) (1) l BY MOUTH BY MOUTH TABLET(S) Cl inics EVERY EVERY BY MOUTH MORNING. MORNING. EVERY MORNING. Mucinex Mucinex No Mucinex [facility] omeprazole omeprazole No omeprazole [facility] 20 mg 20 mg 20 mg Communi capsule,del capsule,del capsule,de ty ayed ayed layed [facility]ospita release release release l TAKE ONE TAKE ONE TAKE ONE Cli nics (1) (1) (1) CAPSULE(S) CAPSULE(S) CAPSULE(S) BY MOUTH BY MOUTH BY MOUTH ONCE A DAY. ONCE A DAY. ONCE A DAY. One A Day One A Day No One A Day [facility] Vitamin Vitamin Vitamin Commun i Daily Daily Daily [facility] Probiotic Probiotic No Probiotic [facility] spironolact spironolact No spironolac [place] one 25 mg one 25 mg tone 25 mg Communi tablet TAKE tablet TAKE tablet ty ONE (1) ONE (1) TAKE ONE Hospi ta TABLET(S) TABLET(S) (1) l BY MOUTH BY MOUTH TABLET(S) Cl inics ONCE A DAY. ONCE A DAY. BY MOUTH ONCE A DAY. tramadol 50 tramadol 50 No tramadol [facility] mg tablet mg tablet 50 mg Comm uni TAKE ONE TAKE ONE tablet ty (1) (1) TAKE ONE Hospita TABLET(S) TABLET(S) (1) l BY MOUTH BY MOUTH TABLET(S) Cl inics EVERY SIX EVERY SIX BY MOUTH HOURS HOURS EVERY SIX NEEDED FOR NEEDED FOR HOURS SEVERE SEVERE NEEDED FOR PAIN. PAIN. SEVERE PAIN. turmeric turmeric No turmeric [facility] Tylenol 325 Tylenol 325 No 2 Q6H Tylenol [facility] mg tablet mg tablet 325 mg Com clarke Take 2 Take 2 tablet ty tablets tablets Take 2 Hospita every 6 every 6 tablets l hours by hours by every 6 Clin ics oral route oral route hours by as needed. as needed. oral route as needed. Vitamin D3 Vitamin D3 No Vitamin D3 [facility] 5000 iu 5000 iu 5000 iu Commun i daily daily daily [facility] Zyrtec Zyrtec No Zyrtec [facility] atorvastati atorvastati No atorvastat [place] n 20 mg n 20 mg in 20 mg Commu ni tablet TAKE tablet TAKE tablet ty ONE (1) ONE (1) TAKE ONE Hospi ta TABLET(S) TABLET(S) (1) l BY MOUTH BY MOUTH TABLET(S) Cl inics ONCE A DAY. ONCE A DAY. BY MOUTH ONCE A DAY. biotin otc biotin otc No biotin otc [facility] 10,000 10,000 10,000 Communi daily. daily. daily. [facility] Calcium 600 Calcium 600 No Calcium [place] daily daily 600 daily Communi [facility] carvedilol carvedilol No carvedilol [facility] 25 mg 25 mg 25 mg [facility] tablet TAKE tablet TAKE tablet ty ONE (1) ONE (1) TAKE ONE Hospi ta TABLET(S) TABLET(S) (1) l BY MOUTH BY MOUTH TABLET(S) Cl inics TWICE A TWICE A BY MOUTH DAY. DAY. TWICE A DAY. furosemide furosemide No furosemide [facility] 80 mg 80 mg 80 mg [facility] tablet TAKE tablet TAKE tablet ty ONE (1) ONE (1) TAKE ONE Hospi ta TABLET(S) TABLET(S) (1) l BY MOUTH BY MOUTH TABLET(S) Cl inics ONCE A DAY. ONCE A DAY. BY MOUTH ONCE A DAY. hydrocodone hydrocodone No hydrocodon [facility] 5 5 e 5 Communi mg-acetamin mg-acetamin mg-acetami ty ophen 325 ophen 325 nophen 325 Hospita mg tablet mg tablet mg tablet l TAKE ONE TAKE ONE TAKE ONE Cli nics (1) TABLET (1) TABLET (1) TABLET BY MOUTH BY MOUTH BY MOUTH EVERY SIX EVERY SIX EVERY SIX HOURS HOURS HOURS NEEDED FOR NEEDED FOR NEEDED FOR PAIN. MAX PAIN. MAX PAIN. MAX OF 4 TABS A OF 4 TABS A OF 4 TABS DAY. DAY. A DAY. losartan 50 losartan 50 No losartan [facility] mg tablet mg tablet 50 mg Comm uni TAKE ONE TAKE ONE tablet ty (1) (1) TAKE ONE Hospita TABLET(S) TABLET(S) (1) l BY MOUTH BY MOUTH TABLET(S) Cl inics ONCE A DAY. ONCE A DAY. BY MOUTH ONCE A DAY. meloxicam meloxicam No meloxicam [facility] 7.5 mg 7.5 mg 7.5 mg Communi tablet TAKE tablet TAKE tablet ty ONE (1) ONE (1) TAKE ONE Hospi ta TABLET(S) TABLET(S) (1) l BY MOUTH BY MOUTH TABLET(S) Cl inics ONCE A DAY. ONCE A DAY. BY MOUTH ONCE A DAY. montelukast montelukast No montelukas [facility] 10 mg 10 mg t 10 mg Communi tablet TAKE tablet TAKE tablet ty ONE (1) ONE (1) TAKE ONE Hospi ta TABLET(S) TABLET(S) (1) l BY MOUTH BY MOUTH TABLET(S) Cl inics EVERY EVERY BY MOUTH MORNING. MORNING. EVERY MORNING. Mucinex Mucinex No Mucinex [facility] [facility] naproxen naproxen No naproxen [facility] 500 mg 500 mg 500 mg Communi tablet TAKE tablet TAKE tablet ty ONE (1) ONE (1) TAKE ONE Hospi ta TABLET(S) TABLET(S) (1) l BY MOUTH BY MOUTH TABLET(S) Cl inics TWICE A DAY TWICE A DAY BY MOUTH WITH MEALS. WITH MEALS. TWICE A DAY WITH MEALS. omeprazole omeprazole No omeprazole [facility] 20 mg 20 mg 20 mg Communi capsule,del capsule,del capsule,de ty ayed ayed layed Hospita release release release l TAKE ONE TAKE ONE TAKE ONE Cli nics (1) (1) (1) CAPSULE(S) CAPSULE(S) CAPSULE(S) BY MOUTH BY MOUTH BY MOUTH ONCE A DAY. ONCE A DAY. ONCE A DAY. One A Day One A Day No One A Day [facility] Vitamin Vitamin Vitamin Commun i Daily Daily Daily ty [facility] Probiotic Probiotic No Probiotic [place] [facility] ty [facility] spironolact spironolact No spironolac [place] one 25 mg one 25 mg tone 25 mg Communi tablet TAKE tablet TAKE tablet ty ONE (1) ONE (1) TAKE ONE Hospi ta TABLET(S) TABLET(S) (1) l BY MOUTH BY MOUTH TABLET(S) Cl inics ONCE A DAY. ONCE A DAY. BY MOUTH ONCE A DAY. tramadol 50 tramadol 50 No tramadol [place] mg tablet mg tablet 50 mg Comm uni TAKE ONE TAKE ONE tablet ty (1) (1) TAKE ONE Hospita TABLET(S) TABLET(S) (1) l BY MOUTH BY MOUTH TABLET(S) Cl inics EVERY SIX EVERY SIX BY MOUTH HOURS HOURS EVERY SIX NEEDED FOR NEEDED FOR HOURS SEVERE SEVERE NEEDED FOR PAIN. PAIN. SEVERE PAIN. turmeric turmeric No turmeric [facility] Communi ty [facility] Tylenol 325 Tylenol 325 No 2 Q6H Tylenol [place] mg tablet mg tablet 325 mg Com clarke Take 2 Take 2 tablet ty tablets tablets Take 2 Hospita every 6 every 6 tablets l hours by hours by every 6 Clin ics oral route oral route hours by as needed. as needed. oral route as needed. Vitamin D3 Vitamin D3 No Vitamin D3 [place] 5000 iu 5000 iu 5000 iu Commun i daily daily daily ty [facility] Zyrtec Zyrtec No [facility] Immunizations Ordered Immunization Filled Immunization Date Status Commen ts Source Name Name zoster recombinant zoster recombinant 2021-11-01 Completed [place] 00:00:00 [facility] zoster recombinant zoster recombinant 2021-11-01 Completed [place] 00:[facility]:00 [facility] zoster recombinant zoster recombinant 2021-11-01 Completed [place] 00:[facility]:00 [facility] zoster recombinant zoster recombinant 2021-11-01 Completed [place] 00:00:00 [facility] zoster recombinant zoster recombinant 2021-11-01 Completed [place] 00[facility]00:00 [facility] zoster recombinant zoster recombinant 2021-11-01 Completed [place] 00:00:00 [facility] zoster recombinant zoster recombinant 2021-11-01 Completed [place] 00:00:00 [facility] zoster recombinant zoster recombinant 2021-11-01 Completed [place] 00:00:00 [facility] zoster recombinant zoster recombinant 2021-11-01 Completed [place] 00:00:00 [facility] zoster recombinant zoster recombinant 2021-11-01 Completed [place] 00:00:00 [facility] zoster recombinant zoster recombinant 2021-11-01 Completed [place] 00:00:00 [facility] zoster recombinant zoster recombinant 2021-11-01 Completed [place] 00:00:00 [facility] zoster recombinant zoster recombinant 2021-11-01 Completed [place] 00:00:00 [facility] zoster recombinant zoster recombinant 2021-11-01 Completed [place] 00:00:00 [facility] COVID-19 (SARS-COV-2) COVID-19 2021-06-02 Completed [facility] marg[facility] vaccine, unspecified (SARS-COV-2) 00:00:00 [facility] vaccine, unspecified [facility]osp [facility] Clinics COVID-19 (SARS-COV-2) COVID-19 2021-06-02 Completed [facility] margy vaccine, unspecified (SARS-COV-2) 00:00:00 [facility] SARS-COV-2 (COVID-19) SARS-COV-2 2021-06-02 Completed [facility] vaccine, UNSPECIFIED (COVID-19) vaccine, 00:00:00 [facility] SARS-COV-2 (COVID-19) SARS-COV-2 2021-06-02 Completed Swe marg[facility] vaccine, UNSPECIFIED (COVID-19) vaccine, 00:00:00 [facility] COVID-19 (SARS-COV-2) COVID-19 2021-06-02 Completed Swe margy vaccine, unspecified (SARS-COV-2) 00:00:00 [facility] COVID-19 (SARS-COV-2) COVID-19 2021-06-02 Completed Swe [facility] vaccine, unspecified (SARS-COV-2) 00:00:00 [facility] vaccine, [facility] COVID-19 (SARS-COV-2) COVID-19 2021-06-02 Completed Swe [facility] vaccine, unspecified (SARS-COV-2) 00:00:00 [facility] vaccine, [facility] COVID-19 (SARS-COV-2) COVID-19 2021-06-02 Completed Swe marg[facility] vaccine, unspecified (SARS-COV-2) 00:00:00 [facility] vaccine, [facility] COVID-19 (SARS-COV-2) COVID-19 2021-06-02 Completed Swe marg[facility] vaccine, unspecified (SARS-COV-2) 00:00:00 [facility] vaccine, unspecified [facility] COVID-19 (SARS-COV-2) COVID-19 2021-06-02 Completed Swe margy vaccine, unspecified (SARS-COV-2) 00:00:00 [facility] vaccine, [facility] COVID-19 (SARS-COV-2) COVID-19 2021-06-02 Completed Swe marg[facility] vaccine, unspecified (SARS-COV-2) 00:00:00 [facility] vaccine[facility] COVID-19 (SARS-COV-2) COVID-19 2021-06-02 Completed Swe margy vaccine, unspecified (SARS-COV-2) 00:00:00 [facility] vaccine, [facility] COVID-19 (SARS-COV-2) COVID-19 2021-06-02 Completed Swe margy vaccine, unspecified (SARS-COV-2) 00:00:00 [facility] vaccine, unspecified [facility] COVID-19 (SARS-COV-2) COVID-19 2021-06-02 Completed Swe marg[facility] vaccine, unspecified (SARS-COV-2) 00:00:00 [facility] COVID-19 (SARS-COV-2) COVID-19 2021-06-02 Completed Swe marg[facility] vaccine, unspecified (SARS-COV-2) 00:00:00 [facility] COVID-19 (SARS-COV-2) COVID-19 2021-06-02 Completed Swe margy vaccine, unspecified (SARS-COV-2) 00:00:00 [facility] vaccine, unspecified [facility] COVID-19 (SARS-COV-2) COVID-19 2021-06-02 Completed Swe marg[facility] vaccine, unspecified (SARS-COV-2) 00:00:00 [facility] vaccine, unspecified [facility] COVID-19 (SARS-COV-2) COVID-19 2021-05-12 Completed Swe marg[facility] vaccine, unspecified (SARS-COV-2) 00:00:00 [facility] vaccine, unspecified [facility] COVID-19 (SARS-COV-2) COVID-19 2021-05-12 Completed Swe marg[facility] vaccine, unspecified (SARS-COV-2) 00:00:00 [facility] vaccine, [facility] SARS-COV-2 (COVID-19) SARS-COV-2 2021-05-12 Completed [facility] vaccine, UNSPECIFIED (COVID-19) vaccine, 00:00:00 [facility] SARS-COV-2 (COVID-19) SARS-COV-2 2021-05-12 Completed Swe marg[facility] vaccine, UNSPECIFIED (COVID-19) vaccine, 00:00:00 [facility] COVID-19 (SARS-COV-2) COVID-19 2021-05-12 Completed Swe marg[facility] vaccine, unspecified (SARS-COV-2) 00:00:00 [facility] COVID-19 (SARS-COV-2) COVID-19 2021-05-12 Completed Swe marg[facility] vaccine, unspecified (SARS-COV-2) 00:00:00 [facility] vaccine, unspecified [facility] COVID-19 (SARS-COV-2) COVID-19 2021-05-12 Completed Swe marg[facility] vaccine, unspecified (SARS-COV-2) 00:00:00 [facility] COVID-19 (SARS-COV-2) COVID-19 2021-05-12 Completed Swe marg[facility] vaccine, unspecified (SARS-COV-2) 00:00:00 [facility] COVID-19 (SARS-COV-2) COVID-19 2021-05-12 Completed Swe marg[facility] vaccine, unspecified (SARS-COV-2) 00:00:00 [facility] vaccine[facility] COVID-19 (SARS-COV-2) COVID-19 2021-05-12 Completed Swe margy vaccine, unspecified (SARS-COV-2) 00:00:00 [facility] vaccine[facility] COVID-19 (SARS-COV-2) COVID-19 2021-05-12 Completed Swe marg[facility] vaccine, unspecified (SARS-COV-2) 00:00:00 [facility] COVID-19 (SARS-COV-2) COVID-19 2021-05-12 Completed [facility] marg[facility] vaccine, unspecified (SARS-COV-2) 00:00:00 [facility] COVID-19 (SARS-COV-2) COVID-19 2021-05-12 Completed Swe marg[facility] vaccine, unspecified (SARS-COV-2) 00:00:00 [facility] vaccine[facility] COVID-19 (SARS-COV-2) COVID-19 2021-05-12 Completed Swe marg[facility] vaccine, unspecified (SARS-COV-2) 00:00:00 [facility] vaccine, unspecified [facility] COVID-19 (SARS-COV-2) COVID-19 2021-05-12 Completed Swe margy vaccine, unspecified (SARS-COV-2) 00:00:00 [facility] vaccine, unspecified [facility] COVID-19 (SARS-COV-2) COVID-19 2021-05-12 Completed Swe margy vaccine, unspecified (SARS-COV-2) 00:00:00 [facility] vaccine, unspecified [facility] COVID-19 (SARS-COV-2) COVID-19 2021-05-12 Completed Swe marg[facility] vaccine, unspecified (SARS-COV-2) 00:00:00 [facility] vaccine, unspecified [facility] Tdap Tdap 2017-12-18 Completed [place] [facility] Tdap Tdap 2017-12-18 Completed [place] [facility] Tdap Tdap 2017-12-18 Completed [place] 00:[facility] Tdap Tdap 2017-12-18 Completed [place] 00:[facility] Tdap Tdap 2017-12-18 Completed [place] 00:[facility] Tdap Tdap 2017-12-18 Completed [place] 00:[facility] Tdap Tdap 2017-12-18 Completed [place] 00:[facility] Tdap Tdap 2017-12-18 Completed [place] 00:[facility] Tdap Tdap 2017-12-18 Completed [place] 00:[facility] Tdap Tdap 2017-12-18 Completed [place] 00:[facility] Tdap Tdap 2017-12-18 Completed [place] 00:[facility] Tdap Tdap 2017-12-18 Completed [place] 00:[facility] Tdap Tdap 2017-12-18 Completed [place] 00:[facility] Tdap Tdap 2017-12-18 Completed [place] 00:[facility] Tdap Tdap 2017-12-18 Completed [place] 00:[facility] Tdap Tdap 2017-12-18 Completed [place] 00:[facility] Tdap Tdap 2017-12-18 Completed [place] 00:[facility] Tdap Tdap 2017-12-18 Completed [place] 00:[facility] Tdap Tdap 2017-12-18 Completed [place] 00:[facility] Tdap Tdap 2017-12-18 Completed [place] 00:00:00 [facility] pneumococcal pneumococcal 2015-01-22 Completed [place] polysaccharide PPV23 polysaccharide PPV23 00:00:00 [facility] pneumococcal pneumococcal 2015-01-22 Completed [place] polysaccharide PPV23 polysaccharide PPV23 00:00:00 [facility] pneumococcal pneumococcal 2015-01-22 Completed [place] polysaccharide PPV23 polysaccharide PPV23 00:00:00 [facility] pneumococcal pneumococcal 2015-01-22 Completed [place] polysaccharide PPV23 polysaccharide PPV23 00:00:00 [facility] pneumococcal pneumococcal 2015-01-22 Completed [place] polysaccharide PPV23 polysaccharide PPV23 00:00:00 [facility] pneumococcal pneumococcal 2015-01-22 Completed [place] polysaccharide PPV23 polysaccharide PPV23 00:00:00 [facility] pneumococcal pneumococcal 2015-01-22 Completed [place] polysaccharide PPV23 polysaccharide PPV23 00:00:00 [facility] pneumococcal pneumococcal 2015-01-22 Completed [place] polysaccharide PPV23 polysaccharide PPV23 00:00:00 [facility] pneumococcal pneumococcal 2015-01-22 Completed [place] polysaccharide PPV23 polysaccharide PPV23 00:00:00 [facility] pneumococcal pneumococcal 2015-01-22 Completed [place] polysaccharide PPV23 polysaccharide PPV23 00:00:00 [facility] pneumococcal pneumococcal 2015-01-22 Completed [place] polysaccharide PPV23 polysaccharide PPV23 00:00:00 [facility] pneumococcal pneumococcal 2015-01-22 Completed [place] polysaccharide PPV23 polysaccharide PPV23 00:00:00 [facility] pneumococcal pneumococcal 2015-01-22 Completed [place] polysaccharide PPV23 polysaccharide PPV23 00:00:00 [facility] pneumococcal pneumococcal 2015-01-22 Completed [place] polysaccharide PPV23 polysaccharide PPV23 00:00:00 [facility] pneumococcal pneumococcal 2015-01-22 Completed [place] polysaccharide PPV23 polysaccharide PPV23 00:00:00 [facility] pneumococcal pneumococcal 2015-01-22 Completed [place] polysaccharide PPV23 polysaccharide PPV23 00:00:00 [facility] pneumococcal pneumococcal 2015-01-22 Completed [place] polysaccharide PPV23 polysaccharide PPV23 00:00:00 [facility] pneumococcal pneumococcal 2015-01-22 Completed [place] polysaccharide PPV23 polysaccharide PPV23 00:00:00 [facility] pneumococcal pneumococcal 2013-01-22 Completed [place] conjugate PCV 13 conjugate PCV 13 00:00:00 [facility] pneumococcal pneumococcal 2013-01-22 Completed [place] conjugate PCV 13 conjugate PCV 13 00:00:00 [facility] pneumococcal pneumococcal 2013-01-22 Completed [place] conjugate PCV 13 conjugate PCV 13 00:00:00 [facility] pneumococcal pneumococcal 2013-01-22 Completed [place] conjugate PCV 13 conjugate PCV 13 00:00:00 [facility] pneumococcal pneumococcal 2013-01-22 Completed [place] conjugate PCV 13 conjugate PCV 13 00:00:00 [facility] pneumococcal pneumococcal 2013-01-22 Completed [place] conjugate PCV 13 conjugate PCV 13 00:00:00 [facility] pneumococcal pneumococcal 2013-01-22 Completed [place] conjugate PCV 13 conjugate PCV 13 00:00:00 [facility] pneumococcal pneumococcal 2013-01-22 Completed [place] conjugate PCV 13 conjugate PCV 13 00:00:00 [facility] pneumococcal pneumococcal 2013-01-22 Completed [place] conjugate PCV 13 conjugate PCV 13 00:00:00 [facility] pneumococcal pneumococcal 2013-01-22 Completed [place] conjugate PCV 13 conjugate PCV 13 00:00:00 [facility] pneumococcal pneumococcal 2013-01-22 Completed [place] conjugate PCV 13 conjugate PCV 13 00:00:00 [facility] pneumococcal pneumococcal 2013-01-22 Completed [place] conjugate PCV 13 conjugate PCV 13 00:00:00 [facility] pneumococcal pneumococcal 2013-01-22 Completed [place] conjugate PCV 13 conjugate PCV 13 00:00:00 [facility] pneumococcal pneumococcal 2013-01-22 Completed [place] conjugate PCV 13 conjugate PCV 13 00:00:00 [facility] pneumococcal pneumococcal 2013-01-22 Completed [place] conjugate PCV 13 conjugate PCV 13 00:00:00 [facility] pneumococcal pneumococcal 2013-01-22 Completed [place] conjugate PCV 13 conjugate PCV 13 00:00:00 [facility] pneumococcal pneumococcal 2013-01-22 Completed [place] conjugate PCV 13 conjugate PCV 13 00:00:00 [facility] pneumococcal pneumococcal 2013-01-22 Completed [place] conjugate PCV 13 conjugate PCV 13 00:00:00 [facility] Vital Signs Vital Name Observation Time Observation Value Comments Source BP Diastolic 2022-07-12 00:00:00 78 mm[Hg] [facility] Height 2022-07-12 00:00:00 65.5 [in_i] [facility] BMI (Body Mass 2022-07-12 00:00:00 30.3 kg/m2 [facility] BP Systolic 2022-07-12 00:00:00 138 mm[Hg] [facility] Body Weight 2022-07-12 00:00:00 2956.8 [oz_av] [facility] BP Diastolic 2022-06-28 00:00:00 54 mm[Hg] [facility] Height 2022-06-28 00:00:00 65.5 [in_i] [facility] BMI (Body Mass 2022-06-28 00:00:00 30.3 kg/m2 [facility] BP Systolic 2022-06-28 00:00:00 110 mm[Hg] [facility] Body Weight 2022-06-28 00:00:00 2956.8 [oz_av] [facility] s BP Diastolic 2022-06-01 00:00:00 50 mm[Hg] [facility] Height 2022-06-01 00:00:00 65.5 [in_i] [facility] BMI (Body Mass 2022-06-01 00:00:00 30 kg/m2 [facility] BP Systolic 2022-06-01 00:00:00 104 mm[Hg] [facility] Body Weight 2022-06-01 00:00:00 2928 [oz_av] [facility] BP Diastolic 2022-05-04 00:00:00 64 mm[Hg] [facility] Height 2022-05-04 00:00:00 65.5 [in_i] [facility] BMI (Body Mass 2022-05-04 00:00:00 30 kg/m2 [facility] BP Systolic 2022-05-04 00:00:00 118 mm[Hg] [facility] Body Weight 2022-05-04 00:00:00 2928 [oz_av] [facility] BP Diastolic 2022-04-27 00:00:00 58 mm[Hg] [facility] Height 2022-04-27 00:00:00 65.5 [in_i] [facility] BMI (Body Mass 2022-04-27 00:00:00 30.7 kg/m2 [facility]) [facility] BP Systolic 2022-04-27 00:00:00 100 mm[Hg] [facility] Body Weight 2022-04-27 00:00:00 3001.6 [oz_av] [facility] BP Diastolic 2022-03-07 00:00:00 65 mm[Hg] [facility] Height 2022-03-07 00:00:00 65.5 [in_i] [facility] BMI (Body Mass 2022-03-07 00:00:00 31.1 kg/m2 [facility]) [facility] BP Systolic 2022-03-07 00:00:00 100 mm[Hg] [facility] Body Weight 2022-03-07 00:00:00 3033.6 [oz_av] [facility] BP Diastolic 2022-02-15 00:00:00 80 mm[Hg] [facility] Height 2022-02-15 00:00:00 65.5 [in_i] [facility] BMI (Body Mass 2022-02-15 00:00:00 31.3 kg/m2 [facility]) [facility] BP Systolic 2022-02-15 00:00:00 100 mm[Hg] [facility] Body Weight 2022-02-15 00:00:00 3059.2 [oz_av] [facility] BP Diastolic 2021-11-08 00:00:00 84 mm[Hg] [facility] Height 2021-11-08 00:00:00 65.5 [in_i] [facility] s BMI (Body Mass 2021-11-08 00:00:00 30.2 kg/m2 [facility]) [facility] BP Systolic 2021-11-08 00:00:00 160 mm[Hg] [facility] Body Weight 2021-11-08 00:00:00 2950.4 [oz_av] [facility] s BP Diastolic 2021-08-10 00:00:00 78 mm[Hg] [facility] Height 2021-08-10 00:00:00 65.5 [in_i] [facility] s BP Systolic 2021-08-10 00:00:00 120 mm[Hg] [facility] s BP Diastolic 2021-06-22 00:00:00 74 mm[Hg] [facility] Height 2021-06-22 00:00:00 65.5 [in_i] [facility] s BMI (Body Mass 2021-06-22 00:00:00 31.1 kg/m2 [facility]) [facility] BP Systolic 2021-06-22 00:00:00 126 mm[Hg] [facility] Body Weight 2021-06-22 00:00:00 3036.8 [oz_av] [facility] Height 2021-02-01 00:00:00 65.5 [in_i] [facility] s BP Diastolic 2021-01-18 00:00:00 72 mm[Hg] [facility] Height 2021-01-18 00:00:00 65.5 [in_i] [facility] BMI (Body Mass 2021-01-18 00:00:00 31.1 kg/m2 [facility] BP Systolic 2021-01-18 00:00:00 128 mm[Hg] [facility] Body Weight 2021-01-18 00:00:00 3033.6 [oz_av] [facility] Body height 2021-09-21 16:37:00 162.6 cm [facility] Body weight 2021-09-21 16:37:00 86.183 kg [facility] BMI 2021-09-21 16:37:00 32.61 kg/m2 [facility] Heart rate 2021-08-15 23:30:00 97 /min [facility] Respiratory rate 2021-08-15 23:30:00 37 /min [facility] Oxygen saturation in 2021-08-15 23:30:00 95 /min [facility] Arterial blood by Pulse oximetry Systolic blood 2021-08-15 23:15:00 136 mm[Hg] [facility] pressure Diastolic blood 2021-08-15 23:15:00 64 mm[Hg] [facility] pressure Body temperature 2021-08-15 22:00:00 36.56 Rizwana [facility] Procedures Procedure Date / Time Performing Clinician Source Performed XR, chest, 2 view 2022-04-27 00:00:00 [facility] electrocardiogram 2022-04-27 00:00:00 [facility] XR WRIST 3+ VW LEFT 2021-09-21 16:45:25 [facility] XR WRIST 3+ VW LEFT 2021-08-24 17:05:54 [facility] OR [place] < 1 HOUR 2021-08-16 00:25:54 [facility] [place] AN ELECTIVE SUPRAGLOTTIC 2021-08-15 20:54:28 Mariam Hernandez [facility] AIRWAY [place] ORIF, FRACTURE, RADIUS, 2021-08-15 20:44:00 [facility] DISTAL HC NERVE BLOCK BRACHIAL 2021-08-15 20:25:11 Sahil Kwon [facility] CONTINUOU POC GLUCOSE 2021-08-15 18:51:00 [facility] ABO AND RH CONFIRMATION BY 2021-08-15 18:45:00 PimentelJael [facility] PROTOCOL ECG PRE/POST OP 2021-08-10 22:46:16 [facility]-19 QUALITATIVE RT-PCR 2021-08-10 22:27:00 [facility] BASIC METABOLIC PANEL 2021-08-10 22:27:00 [facility] HC COMPLETE BLD COUNT 2021-08-10 22:27:00 [facility] W/AUTO DIFF HEMOGLOBIN A1C 2021-08-10 22:27:00 [facility] TYPE AND SCREEN 2021-08-10 22:27:00 [facility] ESTIMATED GFR 2021-08-10 22:27:00 [facility] XR UPPER EXTREMITY EXTERNAL 2021-08-10 15:16:44 [facility] STUDY XR, wrist, 3 or more view 2021-08-10 00:00:00 [facility] Orthopedic Surgery 2021-08-10 00:00:00 [facility] Plan of Care Planned Activity Planned Date Details Comments Source Future Scheduled 2022-07-18 HEPATITIS B VACCINES [facility] Test 14:34:51 (1 of 3 - 3-dose series) [code = HEPATITIS B VACCINES (1 of 3 - 3-dose series)] Future Scheduled 2022-07-18 Hepatitis C screening [facility] Test 14:34:51 (procedure) [code = [id number]] Future Scheduled 2022-07-18 BREAST CANCER [facility] Test 14:34:51 SCREENING [code = BREAST CANCER SCREENING] Future Scheduled 2022-07-18 COLONOSCOPY SCREENING [facility] Test 14:34:51 [code = COLONOSCOPY SCREENING] Future Scheduled 2022-07-18 SHINGLES VACCINES (1 [facility] Test 14:34:51 of 2) [code = SHINGLES VACCINES (1 of 2)] Future Scheduled 2022-07-18 65+ PNEUMOCOCCAL [facility] Test 14:34:51 VACCINE (3 - PPSV23 if available, else PCV20) [code = 65+ PNEUMOCOCCAL VACCINE (3 - PPSV23 if available, else PCV20)] Future Scheduled 2022-07-18 COVID-19 VACCINE ([facility] 14:34:51 Booster for Pfizer series) [code = COVID-19 VACCINE (3 - Booster for Pfizer series)] Future Scheduled 2022-07-18 [facility]ACCINE [facility] 14:34:51 [code = INFLUENZA VACCINE] Diagnostic Test 2022-06-28 TSH + T4, serum [facility] = TSH + T4, serum] Hospital Clinics Diagnostic Test 2022-06-28 ESR (erythrocyte [place] [facility] Pending 00:00:00 sedimentation rate), [facility] blood [code = ESR (erythrocyte sedimentation rate), blood] Diagnostic Test 2022-06-28 C-reactive protein, [facility] Pending 00:00:00 quantitative [code = [facility] C-reactive protein, quantitative] Future Appointment 2022-08-10 Breann Hou, [address] [facility] 09:30:00 [facility] B; [facility], [place] [address] Encounters Start End Encounter Admission Attending Care Care Encounter Source Date/Time Date/Time Type Type Clinicians Facility Department ID 2022-07-12 2022-07-12 Outpatient MARSHA_Minoo [facility] [id number] [place] 00:00:00 00:00:00 019 [facility] 2022-07-12 2022-07-12 Breann Sutherland [facility] [place] Araceli 019 [place] 00:00:00 00:00:00 Mallory Hou MD: [address] [facility] B, [facility] [place], [place], [phone] MARSHA , Ph. 2022-06-28 2022-06-28 Outpatient MARSHA_Minoo [facility] [id number] [place] 00:00:00 00:00:00 005 [facility] 2022-06-28 2022-06-28 Breann Sutherland [facility] [place] Galileo Moreira 005 [place] 00:00:00 00:00:00 Mallory Hou MD: [address] [facility] [address] [facility], [id number] MARSHA , Ph. 2022-06-07 2022-06-07 Outpatient SUSANFFER_A [facility] [id number] [place] 00:00:00 00:00:00 [id number] [facility] 2022-06-01 2022-06-01 Outpatient KEFFER_A [facility] [id number] [place] 00:00:00 00:00:00 908 [facility] 2022-06-01 2022-06-01 Outpatient Breann Hou [facility] [id number] 00:00:00 00:00:00 Ena [id number] 2022-06-01 2022-06-01 Breann Sutherland [facility] [place] - [place] [id number] [place] 00:00:00 00:00:00 Mallory Hou MD: [address] [facility] [address] [address] [facility], [phone] MARSHA , Ph. 2022-05-04 2022-05-04 Outpatient MARSHA_Minoo [facility] [id number] [place] 00:00:00 00:00:00 811 [facility] 2022-05-04 2022-05-04 Outpatient Breann Hou [facility] [id number] 00:00:00 00:00:00 Ena [id number] 2022-05-04 2022-05-04 Breann Sutherland [facility] [place] [id number] [place] 00:00:00 00:00:00 Mallory Hou MD: [address] [facility] [address] l Suite B, H[facility], [address] MARSHA , Ph. 2022-05-04 2022-05-04 Outpatient Breann Hou [facility] b4d [id number] 00:00:00 00:00:00 Ena [id number]-[id number] 2022-04-27 2022-04-27 Outpatient MARSHA_A [facility] 4573-2 0 [place] 00:00:00 00:00:00 804 [facility] 2022-04-27 2022-04-27 Outpatient Breann Hou [facility] 93e [id number] 00:00:00 00:00:00 Ena 409-11ed-a [id number] 2022-04-27 2022-04-27 Breann Sutherland [facility] [place] [id number]04 [place] 00:00:00 00:00:00 Mallory Hou MD: [address] [facility] Hospit [address], COMMUNITY [facility] [address], HOSPITAL [place], [place] CLINIC, [address] MARSHA , Ph. 2022-03-29 2022-03-29 Outpatient MARSHA_Minoo [facility] 4573-2 0220 [place] 11:31:00 11:31:00 706 Commun i ty [facility]osp[facility] 2022-03-29 2022-03-29 Outpatient Breann Hou [facility] 6d6 [id number] 00:00:00 00:00:00 Ena [id number] 2022-03-29 2022-03-29 Breann Sutherland [facility] [place] [id number] 706 [place] 00:00:00 00:00:00 Mallory Hou MD: [address] [facility] Hospit [address], COMMUNITY l [address], [place], [place] CLINIC, [address] MARSHA , Ph. 2022-03-09 2022-03-09 Outpatient KEFFER_Minoo [facility] 4573-2 0220 [place] 04:46:00 04:46:00 616 [facility] Clinics 2022-03-09 2022-03-09 Outpatient Marsha Breann [facility] 617 [id number] 00:00:00 00:00:00 Ena [id number] 2022-03-09 2022-03-09 Breann Sutherland [facility] [place] 616 [place] 00:00:00 00:00:00 Marsha [facility] MD: [address] [facility] [place] Hospit a [address], COMMUNITY l [address], HOSPITAL [facility], [address] MARSHA , Ph. 2022-03-07 2022-03-07 Outpatient MARSHA_Minoo [facility] 4573-2 0220 [place] 06:06:00 06:06:00 614 [facility] Clinics 2022-03-07 2022-03-07 Outpatient Breann Hou [facility] cb8 [id number] 00:00:00 00:00:00 Ena [id number] 2022-03-07 2022-03-07 Breann Sutherland [facility] [place] 614 [place] 00:00:00 00:00:00 Mallory Hou MD: [address] [facility] a [address], COMMUNITY l [address], H[facility], [address] MARSHA , Ph. 2022-02-21 2022-02-21 Outpatient MARSHA_Minoo [facility] 4573-2 0220 [place] 04:27:00 04:27:00 531 Commun i [facility] Clinics 2022-02-21 2022-02-21 Outpatient Breann Hou [facility] 393 [id number] 00:00:00 00:00:00 Ena [id number]-11ec-[id number] 2022-02-21 2022-02-21 Breann Sutherland [facility] [place] [id number] 531 [place] 00:00:00 00:00:00 Mallory Hou MD: [address] [facility] ARACELI [place] Hospit a [address], COMMUNITY l [address], HOSPITAL [facility], [address] MARSHA , Ph. 2022-02-15 2022-02-15 Outpatient MARSHA_A [facility] 4573-2 0220 [place] 04:26:00 04:26:00 525 [facility] i [facility] Clinics 2022-02-15 2022-02-15 Outpatient Breann Hou [facility] ee6 [id number] 00:00:00 00:00:00 Ena [id number] 2022-02-15 2022-02-15 Breann Sutherland [facility] [place] [id number] 525 [place] 00:00:00 00:00:00 Mallory Hou MD[facility] [address] [facility] [address], COMMUNITY [facility] [address], [facility], [address] MARSHA , Ph. 2021-11-08 2021-11-08 Outpatient MARSHA_A [facility] 4573-2 0 [place] 03:36:00 03:36:00 215 Commun i [facility]ita [facility] Clinics 2021-11-08 2021-11-08 Breann Sutherland [facility] [place] [id number] 215 [place] 00:00:00 00:00:00 Mallory Hou MD: [address] [facility] Hospit a [address], COMMUNITY l [address], H[facility], [address] MARSHA , Ph. 2021-11-08 2021-11-08 Outpatient Breann Hou [facility] 42a [id number] 00:00:00 00:00:00 Ena [id number]-[id number] 2021-11-08 2021-11-08 Outpatient Breann Hou [facility] f0f [id number] 00:00:00 00:00:00 Ena [id number] 2021-09-21 Office [place], 1.2.840.1 [id number] 7050 [place]i 11:10:00 11:16:54 Visit Jael Kelly [address]254.1.[address] 3.430.2.7 Hospit a .3.893195 l .8 2021-09-21 2021-09-21 Outpatient [facility] [id number] 946 [place] 00:00:00 00:00:00 JAEL [address] 2021-09-21 2021-09-21 Outpatient [facility] [id number] 852 [place] 00:00:00 00:00:00 JAEL [address] 2021-09-21 2021-09-21 Travel 1.2.840.1 1.2.418.493 [id number] Methodi 00:00:00 00:00:[address] 3.430.2.7 0.2.7.3.698 Ho spita .3.108695 084.8 l .8 2021-09-07 2021-09-07 Outpatient MARSHA_Minoo [facility] 4573-2 0211 [place] 11:11:00 11:11:00 215 Commun i ty [facility]ospita [facility] Clinics 2021-08-30 2021-08-30 Outpatient MARSHA_Minoo [facility] 4573-2 0211 [place] 01:59:00 01:59:00 207 Commun i ty Hospita [facility] Clinics 2021-08-24 2021-08-24 Office [place], 1.2.840.1 [id number] Methodi 11:30:00 11:32:06 Visit Jael Kelly 60188.1.[address] 3.430.2.7 Hospit a .3.878342 l .8 2021-08-24 2021-08-24 Outpatient [facility] [id number] 238 [place] 00:00:00 00:00:00 JAEL 166 Method i 2021-08-24 2021-08-24 Outpatient [facility] [id number] 939 [place] 00:00:00 00:00:00 JAEL [address] 2021-08-24 2021-08-24 Travel 1.2.840.1 1.2.322.346 4630 [id number] Methodi 00:00:00 00:00:[address] 3.430.2.7 0.2.7.3.698 spita .3.498173 084.8 l .8 2021-08-15 2021-08-15 Hospital [facility] 1.2.840.1 [id number] 86545 Methodi 11:51:00 18:01:00 Encounter Jael Kelly 20818.1.[address] 3.430.2.7 Hospit a .3.463732 l .8 2021-08-15 2021-08-15 Surgery [facility] 1.2.840.1 [id number] 4050 [place] 15:20:00 17:20:00 Jael Kelly [address]54.1.[address] 3.430.2.7 Hospit a .3.762410 l .8 2021-08-15 2021-08-15 Anesthesia Cher Sahil 1.2.840.1 [id number] [id number] Methodi 14:44:00 15:59:00 Event Louisa Иринаdariel 45699.1.[address] 3.430.2.7 Hospit a .3.259906 l .8 2021-08-15 2021-08-15 Outpatient [facility] 513 [id number] 155 [place] 00:00:00 00:00:00 JAEL [address] 2021-08-15 2021-08-15 Travel 1.2.840.1 1.2.524.063 [id number] [id number] Methodi 00:00:00 00:00:[address] 3.430.2.7 0.2.7.3.698 Ho spita .3.640978 084.8 l .8 2021-08-12 2021-08-12 Refarmen Mar, 1.2.840.1 [id number] Methodi 00:00:00 00:00:[address] 3.430.2.7 Hospit a .3.062898 l .8 2021-08-10 2021-08-10 [facility], 1.2.840.1 [id number] Methodi 13:03:46 23:59:00 Encounter Jael Kelly 06708.1.[address] 3.430.2.7 Hospit a .3.981175 l .8 2021-08-10 2021-08-10 Pre-Admiss [place], 1.2.840.1 [id number] Methodi 16:00:00 17:00:00 ion Jael Kelly [address]296.1.[address] Testing 3.430.2.7 Hospit a .3.265928 l .8 2021-08-10 2021-08-10 Office [place], 1.2.840.1 [id number] Methodi 13:20:00 14:42:05 Visit Jael Kelly 83980.1.[address] 3.430.2.7 Hospit a .3.000516 l .8 2021-08-10 2021-08-10 Outpatient KEFFER_A [facility] 4573-2 0211 [place] 02:07:00 02:07:00 117 [facility] Clinics 2021-08-10 2021-08-10 Outpatient [facility] [id number] 135 [place] 00:00:00 00:00:00 JAEL [address] 2021-08-10 2021-08-10 Outpatient [facility] [id number] 134 [place] 00:00:00 00:00:00 JAEL [address] 2021-08-10 2021-08-10 Outpatient [facility] [id number] 162 [place] 00:00:00 00:00:[address] JAEL [address] 2021-08-10 2021-08-10 Outpatient Breann Hou [facility] b97 [id number] 00:00:00 00:00:00 Ena [id number] 2021-08-10 2021-08-10 rBeann Sutherland [facility] [place] 117 00:00:00 00:00:00 Mallory Hou MD: [address] [facility] Hospit a [address], [facility] [address], HOSPITAL Clinic [facility], [facility], [address] MARSHA , Ph. 2021-08-10 2021-08-10 Orders Mar, 1.2.840.1 [id number] Methodi 00:00:00 00:00:00 Only Mary [address]44.1.[address] 3.430.2.7 Hospit a .3.566706 l .8 2021-08-10 2021-08-10 Transcribe [place], 1.2.840.1 [id number] Methodi 00:00:00 00:00:00 Orders Jael Kelly [address]64.1.[address] 3.430.2.7 Hospit a .3.671737 l .8 2021-08-10 2021-08-10 Orders [place], 1.2.840.1 [id number] 6204 Methodi 00:00:00 00:00:00 Only Jael Kelly 43216.1.[address] 3.430.2.7 Hospit a .3.184971 l .8 2021-08-10 2021-08-10 Travel 1.2.840.1 1.2.532.101 2992 [id number] Methodi 00:00:00 00:00:[address] 3.430.2.7 0.2.7.3.698 Ho spita .3.478889 084.8 l .8 2021-07-06 2021-07-06 Outpatient ABBY [facility] 4573-2 210 [place] 01:56:00 01:56:00 013 Commun i ty Hospita l Clinics 2021-06-22 2021-06-22 Outpatient KEFFER_A [facility] 4573-2 0210 [place] 06:30:00 06:30:00 929 Commun i ty Hospita [facility] Clinics 2021-06-22 2021-06-22 Outpatient Marsha Breann [facility] 033 [id number] 00:00:00 00:00:00 Ena [id number] 2021-06-22 2021-06-22 Breann [place] [facility] [place] 929 [place] 00:00:00 00:00:00 Mallory Hou MD: [address] [facility] Hospit a [address], [facility] l [address], [facility], [address] MARSHA , Ph. 2021-06-22 2021-06-22 Outpatient Marsha Breann [facility] 44c [id number] 00:00:00 00:00:00 Ena 164-11ec-b [id number] 2021-03-10 2021-03-10 Outpatient MARSHA_Minoo [facility] 4573-2 0210 [place] 02:37:00 02:37:00 617 Commun i ty [facility]ospita [facility] Clinics 2021-02-01 2021-02-01 Outpatient MARSHA_Minoo [facility] 4573-2 0210 [place] 10:17:00 10:17:00 511 Commun i ty Hospita l Clinics 2021-02-01 2021-02-01 Breann Sutherland [facility] [place] 511 [place] 00:00:00 00:00:00 Mallory Hou MD: [address] [facility] Hospit a [address], COMMUNITY l [address], [facility] [place], [address] MARSHA , Ph. 2021-02-01 2021-02-01 Outpatient Breann Hou [facility] 1e8 [id number] 00:00:00 00:00:00 Ena [id number] 2021-01-19 2021-01-19 Outpatient MARSHA_Minoo [facility] 4573-2 0210 [place] 02:24:00 02:24:00 428 Commun i ty Hospita [facility] Clinics 2021-01-18 2021-01-18 Outpatient MARSHA_Minoo [facility] 4573-2 0 [place] 03:44:00 03:44:00 427 Commun i ty Hospita l Clinics 2021-01-18 2021-01-18 Breann Sutherland [facility] [place] 427 [place] 00:00:00 00:00:00 Mallory Hou MD: [address] [facility] Hospit a [address], [facility] [address], HOSPITAL Clinic [facility], [place] CLINIC, [address] MARSHA , Ph. 2021-01-18 2021-01-18 Outpatient Breann Hou [facility] 197 [id number] 00:00:00 00:00:00 Ena [id number]-[id number] [id number] 2021-01-18 2021-01-18 Outpatient Breann Hou [facility] 197 [id number] 00:00:00 00:00:00 Ena [id number]-4 [id number] 2020-08-11 2020-08-11 Outpatient marsha_minoo [facility] 2019 [place] 02:19:00 02:19:00 1118 [facility] 2020-06-28 2020-06-28 Outpatient MEHOP_LAB MEHOP [facility] [place] 02:50:00 02:50:00 [facility] 2020-06-27 2020-06-27 Outpatient MEHOP_LAB MEHOP [facility] [place] 10:47:00 10:47:00 [facility]4 [facility] 2020-06-25 2020-06-25 Outpatient MEHOP_LAB MEHOP [facility] [place] 02:45:00 02:45:00 1002 da [facility] Results Test Description Test Time Test Comments Results Result Comments Source CBC W Differential panel, method unspecified - Blood 2022-01 00:00:00 Test Item Value Reference Range Interpretation Comme nts Leukocytes [#/volume] in Blood by Automated count (test 10.7 x10e3/ uL 3.4-10.8 code = 6690-2) Erythrocytes [#/volume] in Blood by Automated count 4.33 x10e6/uL 3 .77-5.28 (test code = 789-8) Hemoglobin [Mass/volume] in Blood (test code = 718-7) 13.2 g/dL 11.1-15.9 Hematocrit [Volume Fraction] of Blood by Automated count 39.3 % 34.0-46.6 (test code = 4544-3) Erythrocyte mean corpuscular volume [Entitic volume] by 91 fL 79-97 Automated count (test code = 787-2) MCH [Entitic mass] by Automated count (test code = 30.5 pg 26. 6-33.0 785-6) Erythrocyte mean corpuscular hemoglobin concentration 33.6 g/dL 31.5-35.7 [Mass/volume] by Automated count (test code = 786-4) Erythrocyte distribution width [Ratio] by Automated 13.1 % 11 .7-15.4 count (test code = 788-0) Platelets [#/volume] in Blood by Automated count (test 346 x10e3/uL 150-450 code = 777-3) Neutrophils/100 leukocytes in Blood by Automated count 71 % not estab. (test code = 770-8) Lymphocytes/100 leukocytes in Blood by Automated count 16 % not estab. (test code = 736-9) Monocytes/100 leukocytes in Blood by Automated count 8 % n ot estab. (test code = 5905-5) Eosinophils/100 leukocytes in Blood by Automated count 2 % not estab. (test code = 713-8) Basophils/100 leukocytes in Blood by Automated count 1 % n ot estab. (test code = 706-2) immature cells (test code = immature cells) welfare project manager Neutrophils [#/volume] in Blood by Automated count (test 7.7 x10e3/ uL 1.4-7.0 H code = 751-8) Lymphocytes [#/volume] in Blood by Automated count (test 1.7 x10e3/ uL 0.7-3.1 code = 731-0) Monocytes [#/volume] in Blood by Automated count (test 0.9 x10e3/uL 0.1-0.9 code = 742-7) Eosinophils [#/volume] in Blood by Automated count (test 0.2 x10e3/ uL 0.0-0.4 code = 711-2) Basophils [#/volume] in Blood by Automated count (test 0.1 x10e3/uL 0.0-0.2 code = 704-7) Immature granulocytes/100 leukocytes in Blood by 2 % not e stab. Automated count (test code = 60102-0) Immature granulocytes [#/volume] in Blood by Automated 0.2 x10e3/uL 0.0-0.1 H count (test code = 25838-4) Nucleated erythrocytes/100 leukocytes [Ratio] in Blood welfare project manager by Automated count (test code = 54885-0) Morphology [Interpretation] in Blood Narrative (test welfare project manager code = 29503-3) [facility] 2000 panel - Serum or [id number] 00:00:00 Test Item Value Reference Range Interpretation Comments Glucose [Mass/volume] in Serum 96 mg/dL 65-99 or Plasma (test code = 2345-7) Urea nitrogen [Mass/volume] in 13 mg/dL 8-27 Serum or Plasma (test code = 3094-0) Creatinine [Mass/volume] in 0.81 mg/dL 0.57-1.00 Serum or Plasma (test code = 2160-0) eGFR (test code = eGFR) 80 mL/min/1.73 >59 Urea nitrogen/Creatinine [Mass 16 12-28 Ratio] in Serum or Plasma (test code = 3097-3) Sodium [Moles/volume] in Serum 143 mmol/L 134-144 or Plasma (test code = 2951-2) Potassium [Moles/volume] in 4.5 mmol/L 3.5-5.2 Serum or Plasma (test code = 2823-3) Chloride [Moles/volume] in 106 mmol/L 96-106 Serum or Plasma (test code = 2075-0) Carbon dioxide, total 23 mmol/L 20-29 [Moles/volume] in Serum or Plasma (test code = 2027-) Calcium [Mass/volume] in Serum 9.4 mg/dL 8.7-10.3 or Plasma (test code = 44836-7) Protein [Mass/volume] in Serum 5.8 g/dL 6.0-8.5 L or Plasma (test code = 2885-2) Albumin [Mass/volume] in Serum 3.7 g/dL 3.8-4.8 L or Plasma (test code = 1751-7) Globulin [Mass/volume] in 2.1 g/dL 1.5-4.5 Serum by calculation (test code = 61047-4) Albumin/Globulin [Mass Ratio] 1.8 1.2-2.2 in Serum or Plasma (test code = 1759-0) Bilirubin.total [Mass/volume] 0.5 mg/dL 0.0-1.2 in Serum or Plasma (test code = 1974-) Alkaline phosphatase 83 IU/L 44-121 [Enzymatic activity/volume] in Serum or Plasma (test code = 6768-6) Aspartate aminotransferase 20 IU/L 0-40 [Enzymatic activity/volume] in Serum or Plasma (test code = 1920-8) Alanine aminotransferase 16 IU/L 0-32 [Enzymatic activity/volume] in Serum or Plasma (test code = 1742-6) [facility] Clinics[facility] W Reflex Culture panel - [id number] 00:00:00 Test Item Value Reference Range Interpretation Comments Specific gravity of Urine by Test 1.013 1.005-1.030 strip (test code = 5811-5) pH of Urine by Test strip (test 7.5 5.0-7.5 code = 5803-2) Color of Urine (test code = yellow yellow 5778-6) Appearance of Urine (test code = clear clear 5767-9) Leukocyte esterase [Presence] in negative negative Urine by Test strip (test code = 5799-2) Protein [Presence] in Urine by negative negative/trace Test strip (test code = 81808-8) Glucose [Presence] in Urine by negative negative Test strip (test code = 22059-9) Ketones [Presence] in Urine by negative negative Test strip (test code = 2514-8) Hemoglobin [Presence] in Urine by negative negative Test strip (test code = 5794-3) Bilirubin.total [Presence] in negative negative Urine by Test strip (test code = 5770-3) Urobilinogen [Mass/volume] in 0.2 mg/dL 0.2-1.0 Urine by Test strip (test code = 38941-2) Nitrite [Presence] in Urine by negative negative Test strip (test code = 5802-4) Microscopic observation see below: [Identifier] in Urine sediment by Light microscopy (test code = 04117-0) Leukocytes [#/area] in Urine 0-5 0-5 sediment by Microscopy high power field (test code = 5821-4) Erythrocytes [#/area] in Urine none seen 0-2 sediment by Microscopy high power field (test code = 41333-8) Epithelial cells [#/area] in Urine 0-10 0-10 sediment by Microscopy high power field (test code = 5787-7) Epithelial cells.renal [#/area] in welfare project manager Urine sediment by Microscopy high power field (test code = 00372-7) Casts [Presence] in Urine sediment none seen none seen by Light microscopy (test code = 29533-3) Casts [Type] in Urine sediment by welfare project manager Light microscopy (test code = 30499-8) Unidentified crystals [Presence] welfare project manager in Urine sediment by Light microscopy (test code = 5783-6) Crystals [type] in Urine sediment welfare project manager by Light microscopy (test code = 5782-8) Mucus [Presence] in Urine sediment welfare project manager by Light microscopy (test code = 8247-9) Bacteria [#/area] in Urine none seen none seen/few sediment by Microscopy high power field (test code = 5769-5) Yeast [#/area] in Urine sediment welfare project manager by Microscopy high power field (test code = 5822-2) Trichomonas vaginalis [Presence] welfare project manager in Urine sediment by Light microscopy (test code = 5813-1) Urine sediment comments by Light welfare project manager microscopy Narrative (test code = 25815-5) urinalysis reflex (test code = comment urinalysis reflex) [facility]olate+Cyanocobalamin [Interpretation] in Serum or [id number] 00:00:00 Test Item Value Reference Range Interpretation Comments Cobalamin (Vitamin B12) 182 pg/mL 232-1245 L [Mass/volume] in Serum or Plasma (test code = 2132-9) Folate [Mass/volume] in Serum or >20.0 >3.0 Plasma (test code = 2284-8) [facility]SH + T4, [id number] 00:00:00 Test Item Value Reference Range Interpretation Comments Thyrotropin [Units/volume] in 2.350 uIU/mL 0.450-4.500 Serum or Plasma by Detection limit <= 0.005 mIU/L (test code = 11443-0) Thyroxine (T4) [Mass/volume] in 8.8 ug/dL 4.5-12.0 Serum or Plasma (test code = 3026-2) [facility]25-Hydroxyvitamin D3+25-Hydroxyvitamin D2 [Mass/volume] in Serum or [id number] 00:00:00 Test Item Value Reference Range Interpretation Comments 25-Hydroxyvitamin 34.5 NG/mL 30.0-100.0 D3+25-Hydroxyvitamin D2 [Mass/volume] in Serum or Plasma (test code = 13791-4) [facility] TexasHem[facility] A1c/Hemoglobin.total in Blood 2022-02-16 00:00:00 Test Item Value Reference Range Interpretation Comments Hemoglobin A1c/Hemoglobin.total in 5.7 % 4.8-5.6 H Blood (test code = 4548-4) [facility] W Differential panel, method unspecified - [id number] 00:00:00 Test Item Value Reference Range Interpretation Comments Leukocytes [#/volume] in Blood 10.7 x10e3/uL 3.4-10.8 by Automated count (test code = 6690-2) Erythrocytes [#/volume] in 4.33 x10e6/uL 3.77-5.28 Blood by Automated count (test code = 789-8) Hemoglobin [Mass/volume] in 13.2 g/dL 11.1-15.9 Blood (test code = 718-7) Hematocrit [Volume Fraction] of 39.3 % 34.0-46.6 Blood by Automated count (test code = 4544-3) Erythrocyte mean corpuscular 91 fL 79-97 volume [Entitic volume] by Automated count (test code = 787-2) MCH [Entitic mass] by Automated 30.5 pg 26.6-33.0 count (test code = 785-6) Erythrocyte mean corpuscular 33.6 g/dL 31.5-35.7 hemoglobin concentration [Mass/volume] by Automated count (test code = 786-4) Erythrocyte distribution width 13.1 % 11.7-15.4 [Ratio] by Automated count (test code = 788-0) Platelets [#/volume] in Blood 346 x10e3/uL 150-450 by Automated count (test code = 777-3) Neutrophils/100 leukocytes in 71 % not estab. Blood by Automated count (test code = 770-8) Lymphocytes/100 leukocytes in 16 % not estab. Blood by Automated count (test code = 736-9) Monocytes/100 leukocytes in 8 % not estab. Blood by Automated count (test code = 5905-5) Eosinophils/100 leukocytes in 2 % not estab. Blood by Automated count (test code = 713-8) Basophils/100 leukocytes in 1 % not estab. Blood by Automated count (test code = 706-2) immature cells (test code = welfare project manager immature cells) Neutrophils [#/volume] in Blood 7.7 x10e3/uL 1.4-7.0 H by Automated count (test code = 751-8) Lymphocytes [#/volume] in Blood 1.7 x10e3/uL 0.7-3.1 by Automated count (test code = 731-0) Monocytes [#/volume] in Blood 0.9 x10e3/uL 0.1-0.9 by Automated count (test code = 742-7) Eosinophils [#/volume] in Blood 0.2 x10e3/uL 0.0-0.4 by Automated count (test code = 711-2) Basophils [#/volume] in Blood 0.1 x10e3/uL 0.0-0.2 by Automated count (test code = 704-7) Immature granulocytes/100 2 % not estab. leukocytes in Blood by Automated count (test code = 62572-7) Immature granulocytes 0.2 x10e3/uL 0.0-0.1 H [#/volume] in Blood by Automated count (test code = 31384-2) Nucleated erythrocytes/100 welfare project manager leukocytes [Ratio] in Blood by Automated count (test code = 82139-9) Morphology [Interpretation] in welfare project manager Blood Narrative (test code = 88128-0) [facility] - Serum or [id number] 00:00:00 Test Item Value Reference Range Interpretation Comments Glucose [Mass/volume] in Serum 96 mg/dL 65-99 or Plasma (test code = 2345-7) Urea nitrogen [Mass/volume] in 13 mg/dL 8-27 Serum or Plasma (test code = 3094-0) Creatinine [Mass/volume] in 0.81 mg/dL 0.57-1.00 Serum or Plasma (test code = 2160-0) eGFR (test code = eGFR) 80 mL/min/1.73 >59 Urea nitrogen/Creatinine [Mass 16 12-28 Ratio] in Serum or Plasma (test code = 3097-3) Sodium [Moles/volume] in Serum 143 mmol/L 134-144 or Plasma (test code = 2951-2) Potassium [Moles/volume] in 4.5 mmol/L 3.5-5.2 Serum or Plasma (test code = 2823-3) Chloride [Moles/volume] in 106 mmol/L 96-106 Serum or Plasma (test code = 2075-0) Carbon dioxide, total 23 mmol/L 20-29 [Moles/volume] in Serum or Plasma (test code = 2027-9) Calcium [Mass/volume] in Serum 9.4 mg/dL 8.7-10.3 or Plasma (test code = 79924-2) Protein [Mass/volume] in Serum 5.8 g/dL 6.0-8.5 L or Plasma (test code = 2885-2) Albumin [Mass/volume] in Serum 3.7 g/dL 3.8-4.8 L or Plasma (test code = 1751-7) Globulin [Mass/volume] in 2.1 g/dL 1.5-4.5 Serum by calculation (test code = 29343-7) Albumin/Globulin [Mass Ratio] 1.8 1.2-2.2 in Serum or Plasma (test code = 1759-0) Bilirubin.total [Mass/volume] 0.5 mg/dL 0.0-1.2 in Serum or Plasma (test code = 1975-2) Alkaline phosphatase 83 IU/L 44-121 [Enzymatic activity/volume] in Serum or Plasma (test code = 6768-6) Aspartate aminotransferase 20 IU/L 0-40 [Enzymatic activity/volume] in Serum or Plasma (test code = 1920-8) Alanine aminotransferase 16 IU/L 0-32 [Enzymatic activity/volume] in Serum or Plasma (test code = 1742-6) [facility] ClinicsUrinalysis dip[facility] W Reflex Culture panel - [id number] 00:00:00 Test Item Value Reference Range Interpretation Comments Specific gravity of Urine by Test 1.013 1.005-1.030 strip (test code = 5811-5) pH of Urine by Test strip (test 7.5 5.0-7.5 code = 5803-2) Color of Urine (test code = yellow yellow 5778-6) Appearance of Urine (test code = clear clear 5767-9) Leukocyte esterase [Presence] in negative negative Urine by Test strip (test code = 5799-2) Protein [Presence] in Urine by negative negative/trace Test strip (test code = 53076-5) Glucose [Presence] in Urine by negative negative Test strip (test code = 38098-6) Ketones [Presence] in Urine by negative negative Test strip (test code = 2514-8) Hemoglobin [Presence] in Urine by negative negative Test strip (test code = 5794-3) Bilirubin.total [Presence] in negative negative Urine by Test strip (test code = 5770-3) Urobilinogen [Mass/volume] in 0.2 mg/dL 0.2-1.0 Urine by Test strip (test code = 76745-3) Nitrite [Presence] in Urine by negative negative Test strip (test code = 5802-4) Microscopic observation see below: [Identifier] in Urine sediment by Light microscopy (test code = 25968-2) Leukocytes [#/area] in Urine 0-5 0-5 sediment by Microscopy high power field (test code = 5821-4) Erythrocytes [#/area] in Urine none seen 0-2 sediment by Microscopy high power field (test code = 02073-6) Epithelial cells [#/area] in Urine 0-10 0-10 sediment by Microscopy high power field (test code = 5787-7) Epithelial cells.renal [#/area] in welfare project manager Urine sediment by Microscopy high power field (test code = 75397-2) Casts [Presence] in Urine sediment none seen none seen by Light microscopy (test code = 38977-0) Casts [Type] in Urine sediment by welfare project manager Light microscopy (test code = 11705-0) Unidentified crystals [Presence] welfare project manager in Urine sediment by Light microscopy (test code = 5783-6) Crystals [type] in Urine sediment welfare project manager by Light microscopy (test code = 5782-8) Mucus [Presence] in Urine sediment welfare project manager by Light microscopy (test code = 8247-9) Bacteria [#/area] in Urine none seen none seen/few sediment by Microscopy high power field (test code = 5769-5) Yeast [#/area] in Urine sediment welfare project manager by Microscopy high power field (test code = 5822-2) Trichomonas vaginalis [Presence] welfare project manager in Urine sediment by Light microscopy (test code = 5813-1) Urine sediment comments by Light welfare project manager microscopy Narrative (test code = 78398-2) urinalysis reflex (test code = comment urinalysis reflex) [facility]olate+Cyanocobalamin [Interpretation] in Serum or [id number] 00:00:00 Test Item Value Reference Range Interpretation Comments Cobalamin (Vitamin B12) 182 pg/mL 232-1245 L [Mass/volume] in Serum or Plasma (test code = 2132-9) Folate [Mass/volume] in Serum or >20.0 >3.0 Plasma (test code = 2284-8) [facility]SH + T4, [id number] 00:00:00 Test Item Value Reference Range Interpretation Comments Thyrotropin [Units/volume] in 2.350 uIU/mL 0.450-4.500 Serum or Plasma by Detection limit <= 0.005 mIU/L (test code = 90870-4) Thyroxine (T4) [Mass/volume] in 8.8 ug/dL 4.5-12.0 Serum or Plasma (test code = 3026-2) [facility]25-Hydroxyvitamin D3+25-Hydroxyvitamin D2 [Mass/volume] in Serum or [id number] 00:00:00 Test Item Value Reference Range Interpretation Comments 25-Hydroxyvitamin 34.5 NG/mL 30.0-100.0 D3+25-Hydroxyvitamin D2 [Mass/volume] in Serum or Plasma (test code = 93661-1) [facility]Hem[facility] A1c/Hemoglobin.total in Blood 2022-02-16 00:00:00 Test Item Value Reference Range Interpretation Comments Hemoglobin A1c/Hemoglobin.total in 5.7 % 4.8-5.6 H Blood (test code = 4548-4) [facility]CB W Differential panel, method unspecified - [id number] 00:00:00 Test Item Value Reference Range Interpretation Comments Leukocytes [#/volume] in Blood 10.7 x10e3/uL 3.4-10.8 by Automated count (test code = 6690-2) Erythrocytes [#/volume] in 4.33 x10e6/uL 3.77-5.28 Blood by Automated count (test code = 789-8) Hemoglobin [Mass/volume] in 13.2 g/dL 11.1-15.9 Blood (test code = 718-7) Hematocrit [Volume Fraction] of 39.3 % 34.0-46.6 Blood by Automated count (test code = 4544-3) Erythrocyte mean corpuscular 91 fL 79-97 volume [Entitic volume] by Automated count (test code = 787-2) MCH [Entitic mass] by Automated 30.5 pg 26.6-33.0 count (test code = 785-6) Erythrocyte mean corpuscular 33.6 g/dL 31.5-35.7 hemoglobin concentration [Mass/volume] by Automated count (test code = 786-4) Erythrocyte distribution width 13.1 % 11.7-15.4 [Ratio] by Automated count (test code = 788-0) Platelets [#/volume] in Blood 346 x10e3/uL 150-450 by Automated count (test code = 777-3) Neutrophils/100 leukocytes in 71 % not estab. Blood by Automated count (test code = 770-8) Lymphocytes/100 leukocytes in 16 % not estab. Blood by Automated count (test code = 736-9) Monocytes/100 leukocytes in 8 % not estab. Blood by Automated count (test code = 5905-5) Eosinophils/100 leukocytes in 2 % not estab. Blood by Automated count (test code = 713-8) Basophils/100 leukocytes in 1 % not estab. Blood by Automated count (test code = 706-2) immature cells (test code = welfare project manager immature cells) Neutrophils [#/volume] in Blood 7.7 x10e3/uL 1.4-7.0 H by Automated count (test code = 751-8) Lymphocytes [#/volume] in Blood 1.7 x10e3/uL 0.7-3.1 by Automated count (test code = 731-0) Monocytes [#/volume] in Blood 0.9 x10e3/uL 0.1-0.9 by Automated count (test code = 742-7) Eosinophils [#/volume] in Blood 0.2 x10e3/uL 0.0-0.4 by Automated count (test code = 711-2) Basophils [#/volume] in Blood 0.1 x10e3/uL 0.0-0.2 by Automated count (test code = 704-7) Immature granulocytes/100 2 % not estab. leukocytes in Blood by Automated count (test code = 26225-2) Immature granulocytes 0.2 x10e3/uL 0.0-0.1 H [#/volume] in Blood by Automated count (test code = 32106-4) Nucleated erythrocytes/100 welfare project manager leukocytes [Ratio] in Blood by Automated count (test code = 94343-7) Morphology [Interpretation] in welfare project manager Blood Narrative (test code = 71592-4) [facility]Com[facility] metabolic 2000 panel - Serum or [id number] 00:00:00 Test Item Value Reference Range Interpretation Comments Glucose [Mass/volume] in Serum 96 mg/dL 65-99 or Plasma (test code = 2345-7) Urea nitrogen [Mass/volume] in 13 mg/dL 8-27 Serum or Plasma (test code = 3094-0) Creatinine [Mass/volume] in 0.81 mg/dL 0.57-1.00 Serum or Plasma (test code = 2160-0) eGFR (test code = eGFR) 80 mL/min/1.73 >59 Urea nitrogen/Creatinine [Mass 16 12-28 Ratio] in Serum or Plasma (test code = 3097-3) Sodium [Moles/volume] in Serum 143 mmol/L 134-144 or Plasma (test code = 2951-2) Potassium [Moles/volume] in 4.5 mmol/L 3.5-5.2 Serum or Plasma (test code = 2823-3) Chloride [Moles/volume] in 106 mmol/L 96-106 Serum or Plasma (test code = 2075-0) Carbon dioxide, total 23 mmol/L 20-29 [Moles/volume] in Serum or Plasma (test code = 2027-9) Calcium [Mass/volume] in Serum 9.4 mg/dL 8.7-10.3 or Plasma (test code = 18526-8) Protein [Mass/volume] in Serum 5.8 g/dL 6.0-8.5 L or Plasma (test code = 2885-2) Albumin [Mass/volume] in Serum 3.7 g/dL 3.8-4.8 L or Plasma (test code = 1751-7) Globulin [Mass/volume] in 2.1 g/dL 1.5-4.5 Serum by calculation (test code = 08123-3) Albumin/Globulin [Mass Ratio] 1.8 1.2-2.2 in Serum or Plasma (test code = 1759-0) Bilirubin.total [Mass/volume] 0.5 mg/dL 0.0-1.2 in Serum or Plasma (test code = 1974-2) Alkaline phosphatase 83 IU/L 44-121 [Enzymatic activity/volume] in Serum or Plasma (test code = 6768-6) Aspartate aminotransferase 20 IU/L 0-40 [Enzymatic activity/volume] in Serum or Plasma (test code = 1920-8) Alanine aminotransferase 16 IU/L 0-32 [Enzymatic activity/volume] in Serum or Plasma (test code = 1742-6) [facility] ClinicsUrinalysis dipstick W Reflex Culture panel - [id number] 00:00:00 Test Item Value Reference Range Interpretation Comments Specific gravity of Urine by Test 1.013 1.005-1.030 strip (test code = 5811-5) pH of Urine by Test strip (test 7.5 5.0-7.5 code = 5803-2) Color of Urine (test code = yellow yellow 5778-6) Appearance of Urine (test code = clear clear 5767-9) Leukocyte esterase [Presence] in negative negative Urine by Test strip (test code = 5799-2) Protein [Presence] in Urine by negative negative/trace Test strip (test code = 95312-6) Glucose [Presence] in Urine by negative negative Test strip (test code = 10706-6) Ketones [Presence] in Urine by negative negative Test strip (test code = 2514-8) Hemoglobin [Presence] in Urine by negative negative Test strip (test code = 5794-3) Bilirubin.total [Presence] in negative negative Urine by Test strip (test code = 5770-3) Urobilinogen [Mass/volume] in 0.2 mg/dL 0.2-1.0 Urine by Test strip (test code = 94153-3) Nitrite [Presence] in Urine by negative negative Test strip (test code = 5802-4) Microscopic observation see below: [Identifier] in Urine sediment by Light microscopy (test code = 97986-9) Leukocytes [#/area] in Urine 0-5 0-5 sediment by Microscopy high power field (test code = 5821-4) Erythrocytes [#/area] in Urine none seen 0-2 sediment by Microscopy high power field (test code = 91862-7) Epithelial cells [#/area] in Urine 0-10 0-10 sediment by Microscopy high power field (test code = 5787-7) Epithelial cells.renal [#/area] in welfare project manager Urine sediment by Microscopy high power field (test code = 54897-9) Casts [Presence] in Urine sediment none seen none seen by Light microscopy (test code = 09642-9) Casts [Type] in Urine sediment by welfare project manager Light microscopy (test code = 37601-6) Unidentified crystals [Presence] welfare project manager in Urine sediment by Light microscopy (test code = 5783-6) Crystals [type] in Urine sediment welfare project manager by Light microscopy (test code = 5782-8) Mucus [Presence] in Urine sediment welfare project manager by Light microscopy (test code = 8247-9) Bacteria [#/area] in Urine none seen none seen/few sediment by Microscopy high power field (test code = 5769-5) Yeast [#/area] in Urine sediment welfare project manager by Microscopy high power field (test code = 5822-2) Trichomonas vaginalis [Presence] welfare project manager in Urine sediment by Light microscopy (test code = 5813-1) Urine sediment comments by Light welfare project manager microscopy Narrative (test code = 19940-0) urinalysis reflex (test code = comment urinalysis reflex) [facility]Folate+Cyanocobalamin [Interpretation] in Serum or [id number] 00:00:00 Test Item Value Reference Range Interpretation Comments Cobalamin (Vitamin B12) 182 pg/mL 232-1245 L [Mass/volume] in Serum or Plasma (test code = 2132-9) Folate [Mass/volume] in Serum or >20.0 >3.0 Plasma (test code = 2284-8) [facility]TSH + T4, [id number] 00:00:00 Test Item Value Reference Range Interpretation Comments Thyrotropin [Units/volume] in 2.350 uIU/mL 0.450-4.500 Serum or Plasma by Detection limit <= 0.005 mIU/L (test code = 58977-8) Thyroxine (T4) [Mass/volume] in 8.8 ug/dL 4.5-12.0 Serum or Plasma (test code = 3026-2) [facility]25-Hydroxyvitamin D3+25-Hydroxyvitamin D2 [Mass/volume] in Serum or [id number] 00:00:00 Test Item Value Reference Range Interpretation Comments 25-Hydroxyvitamin 34.5 NG/mL 30.0-100.0 D3+25-Hydroxyvitamin D2 [Mass/volume] in Serum or Plasma (test code = 08526-7) [facility] TexasHemoglobin A1c/Hemoglobin.total in Blood 2022-02-16 00:00:00 Test Item Value Reference Range Interpretation Comments Hemoglobin A1c/Hemoglobin.total in 5.7 % 4.8-5.6 H Blood (test code = 4548-4) [facility] TexasABO and Rh [id number] 20:41:00 Test Item Value Reference Range Interpretation Comments ABO grouping (test code = 883-9) A Rh type (test code = 97433-0) POS [facility] [id number] 18:54:01 Test Item Value Reference Range Interpretation Comments POC glucose (test 84 mg/dL 65-99 Photo Print Specialist N ajay: Carrera code = 82073-7) RebeccaDevic e ID: [id number] [facility] Pre/Post [id number] 00:15:02 Test Item Value Reference Range Interpretation Comments Ventricular rate (test code = 253) Atrial rate (test code = 255) TN interval (test code = 266) QRSD interval (test code = 260) QT interval (test code = 264) QTC interval (test code = 265) P axis 1 (test code = 267) QRS axis 1 (test code = 268) T wave axis (test code = 270) EKG impression (test Normal sinus code = 273) rhythm-Low voltage QRS-Cannot rule out Anterior infarct , age undetermined-Abnormal ECG-No previous ECGs available-Electronica lly Signed By Dakotah Freedman MD ([id number]) on 08/12/2021 6:15:01 PM [facility] RNA [Presence] in Respiratory specimen by ALAN with probe [id number] 01:12:30 Test Item Value Reference Range Interpretation Comments SARS-CoV-2 (COVID-19) RNA Not detected Not-Detected [Presence] in Respiratory specimen by ALAN with probe detection (test code = 06400-3) 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 (test code = 76562-4) Whether the patient has symptoms related to condition of interest (test code = 65966-7) Patient was hospitalized because of this condition (test code = 13863-8) Whether the patient was admitted to intensive care unit (ICU) for condition of interest (test code = 93093-4) Whether patient resides in a congregate care setting (test code = 20654-1) [facility] and [id number] 00:09:00 Test Item Value Reference Range Interpretation Comments ABO grouping (test code = 883-9) A Rh type (test code = 46570-6) POS Antibody screen (gel) (test code = NEG 890-4) [facility]
--- NOTE | 2022-07-20 16:57 | RAD REPORT ---
EXAM DESCRIPTION: RAD - Chest Single View - 07/20/2022 4:42 pm CLINICAL HISTORY: DYSPNEA Chest pain. COMPARISON: No comparisons FINDINGS: Portable technique limits examination quality. The lungs are grossly clear. The heart is mildly prominent in size. No displaced fractures. IMPRESSION: No acute intrathoracic process suspected.
[2022-07-20 17:25] LABS: Absolute Lymphocytes (CBC) 1.9 K/uL (0.7-4.9); Hematocrit 43.6 % (36.0-45.0); MCV 91.7 fL (80-100); MPV 7.6 fL (7.6-11.3); RBC Red Blood Cell Count 4.75 M/uL (3.86-4.86)
[2022-07-20] MEDS ORDERED: NA CHLORIDE 0.9% 100 ML IV ONE (17:28)
[2022-07-20] MEDS ORDERED: PIPERACIL/TAZO 3.375 GM VIAL IV ONE (17:28)
[2022-07-20] MEDS ORDERED: ASPIRIN 81 MG CHEWABLE TABLET ONE (17:28)
[2022-07-20 17:29] LABS: Protime INR 1.28
[2022-07-20 17:39] LABS: SARS-CoV-2 Antigen Rapid Res Negative (Negative)
[2022-07-20 17:46] LABS: Albumin 2.7 g/dL (3.4-5.0); Bilirubin Direct 0.2 mg/dL (0-0.2); Bilirubin Total 1.2 mg/dL (0.2-1.0); Magnesium 2.3 mg/dL (1.8-2.4); Potassium 3.8 mmol/L (3.5-5.1); Protein, Total 6.3 g/dL (6.4-8.2)
[2022-07-20 17:53] LABS: Troponin High Sensitivity 71.6 pg/mL (<58.9)
--- NOTE | 2022-07-20 18:27 | RAD REPORT ---
EXAM DESCRIPTION: CT - Chest For Pe Angio - 07/20/2022 6:18 pm CLINICAL HISTORY: Chest pain. sob COMPARISON: No comparisons TECHNIQUE: CT angiogram of the pulmonary arteries was performed with MIP. All CT scans are performed using dose optimization technique as appropriate and may include automated exposure control or mA/KV adjustment according to patient size. FINDINGS: No evidence of pulmonary thromboembolism. No acute aortic finding demonstrated. Emphysema is present with mild fibrotic changes in both lung bases. No significant pericardial or pleural fluid. No concerning bony finding. IMPRESSION: No evidence of pulmonary thromboembolism. Prominent diffuse COPD is present.
--- NOTE | 2022-07-20 18:37 | EDPHYS ---
Physician Documentation [facility] Name: Yasemin Richard Age: 66 yrs Sex: Female : 1955 Arrival Date: 07/20/2022 Time: 15:47 Bed 5 Private MD: ED Physician Stephen Ryan HPI: 07/20 16:11 This 66 yrs old Female presents to ER via Wheelchair with complaints of Breathing snw Difficulty. 16:11 The patient has shortness of breath at rest. Onset: The symptoms/episode began/occurred snw gradually, 5 day(s) ago, and became worse 2 day(s) ago. Duration: The symptoms are continuous. Associated signs and symptoms: Pertinent positives: pain on inspiration. Severity of symptoms: At their worst the symptoms were moderate in the emergency department the symptoms are worse. It is unknown whether or not the patient has had similar symptoms in the past. Pt's PCP in Dr. Hou. Pt saw Dr. Canchola yesterday, given Eliquis and Trelegy. Pt states she stopped Prednisone on Sunday of last week. Historical: - Allergies: 16:09 Codeine; ld1 - Home Meds: 16:09 albuterol sulfate 90 mcg/actuation Inhl HFAA 1 puff every 4 hours [Active]; carvedilol ld1 12.5 mg Oral tab 1 tab 2 times per day [Active]; Eliquis 5 mg Oral tab 1 tab 2 times per day [Active]; furosemide 40 mg Oral tab 1 tab once daily [Active]; naproxen 500 mg Oral tab 1 tab 2 times per day [Active]; omeprazole 20 mg Oral cpDR 1 cap once daily [Active]; spironolactone 25 mg Oral tab 1 tab 2 times per day [Active]; trelegy [Active]; - PMHx: 16:09 Hypertensive disorder; COPD; ld1 - Immunization history:: Adult Immunizations up to date, Client reports receiving the 2nd dose of the Covid vaccine. - Social history:: Smoking status: Patient denies any tobacco usage or history of. Patient/guardian denies using alcohol. ROS: 16:09 Constitutional: Negative for fever, chills, and weight loss, Eyes: Negative for injury, snw pain, redness, and discharge, ENT: Negative for injury, pain, and discharge, Neck: Negative for injury, pain, and swelling, Cardiovascular: Negative for chest pain, palpitations, and edema. 16:09 Abdomen/GI: Negative for abdominal pain, nausea, vomiting, diarrhea, and constipation, Back: Negative for injury and pain, : Negative for injury, bleeding, discharge, and swelling, MS/Extremity: Negative for injury and deformity, Skin: Negative for injury, rash, and discoloration, Neuro: Negative for headache, weakness, numbness, tingling, and seizure. 16:09 Respiratory: Positive for pleurisy, of the left posterior lower lobe, shortness of breath. Exam: 16:08 Head/Face: Normocephalic, atraumatic. Eyes: Pupils equal round and reactive to light, snw extra-ocular motions intact. Lids and lashes normal. Conjunctiva and sclera are non-icteric and not injected. Cornea within normal limits. Periorbital areas with no swelling, redness, or edema. 16:08 Neck: Trachea midline, no thyromegaly or masses palpated, and no cervical lymphadenopathy. Supple, full range of motion without nuchal rigidity, or vertebral point tenderness. No Meningismus. Chest/axilla: Normal chest wall appearance and motion. Nontender with no deformity. No lesions are appreciated. 16:08 Abdomen/GI: Soft, non-tender, with normal bowel sounds. No distension or tympany. No guarding or rebound. No evidence of tenderness throughout. Back: No spinal tenderness. No costovertebral tenderness. Full range of motion. Skin: Warm, dry with normal turgor. Normal color with no rashes, no lesions, and no evidence of cellulitis. MS/ Extremity: Pulses equal, no cyanosis. Neurovascular intact. Full, normal range of motion. Neuro: Awake and alert, GCS 15, oriented to person, place, time, and situation. Cranial nerves II-XII grossly intact. Motor strength 5/5 in all extremities. Sensory grossly intact. Cerebellar exam normal. Normal gait. 16:08 Constitutional: The patient appears alert, anxious, uncomfortable. 16:08 ENT: Voice: is hoarse. 16:08 Cardiovascular: Rate: tachycardic, Rhythm: regular, Pulses: no pulse deficits are appreciated. 16:08 Respiratory: mild respiratory distress is noted, Respirations: shallow respirations, tachypnea, that is moderate, Breath sounds: bronchial sounds, rhonchi, that are moderate, are heard in the left posterior lower lobe. 16:08 Psych: Behavior/mood is anxious. Vital Signs: 16:04 BP 115 / 83; Pulse 114; Resp 30; Temp 98.3(O); Pulse Ox 98% on R/A; Weight 82.55 kg; ld1 Height 5 ft. 5 in. (165.10 cm); Pain 6/10; 17:00 BP 122 / 74; Pulse 107; Resp 20; Pulse Ox 95% ; kb3 17:59 BP 106 / 72; Pulse 105; Resp 17; Pulse Ox 94% on R/A; kb3 19:26 BP 122 / 79; Pulse 104; Resp 16 S; Pulse Ox 97% on 8% Nebulizer Mask; as6 16:04 Body Mass Index 30.28 (82.55 kg, 165.10 cm) ld1 MDM: 16:06 Patient medically screened. snw 18:36 Data reviewed: vital signs, nurses notes. Data interpreted: Pulse oximetry: on room air snw is 94 %. Interpretation: acceptable. 07/20 16:03 Order name: Basic Metabolic Panel; Complete Time: 17:53 07/20 16:03 Order name: CBC with Diff; Complete Time: 17:33 07/20 16:03 Order name: LFT's; Complete Time: 17:53 07/20 16:03 Order name: Magnesium; Complete Time: 17:53 07/20 16:03 Order name: NT PRO-BNP; Complete Time: 17:53 07/20 16:03 Order name: PT-INR; Complete Time: 17:29 07/20 16:03 Order name: CT Chest For PE Angio 07/20 16:03 Order name: Troponin HS; Complete Time: 17:53 [facility] 07/20 16:03 Order name: XRAY Chest (1 view); Complete Time: 16:59 07/20 16:03 Order name: Blood Culture Adult (2) ld07/20 16:03 Order name: Lactate; Complete Time: 17:52 07/20 16:07 Order name: Flu; Complete Time: 17:52 snw 07/20 16:07 Order name: SARS RAPID; Complete Time: 17:42 snw 07/20 16:03 Order name: EKG; Complete Time: 16:04 ld1 07/20 16:03 Order name: Cardiac monitoring; Complete Time: 17:19 ld1 07/20 16:03 Order name: EKG - Nurse/Tech; Complete Time: 17:19 ld1 07/20 16:03 Order name: IV Saline Lock; Complete Time: 17:19 ld1 07/20 16:03 Order name: Labs collected and sent; Complete Time: 17:19 ld1 07/20 16:03 Order name: O2 Per Protocol; Complete Time: 17:19 ld1 07/20 16:03 Order name: O2 Sat Monitoring; Complete Time: 17:19 ld1 07/20 16:08 Order name: Chest For Pe Angio; Complete Time: 18:31 EDMS EC:30 Rate is 107 beats/min. Rhythm is regular. QRS [place] is Normal. No ST changes noted. snw Clinical impression: Abnormal EKG without significant change and Sinus tachycardia. Administered Medications: 16:30 Drug: Aspirin Chewable Tablet 324 mg Route: PO; kb3 18:48 Follow up: Response: No adverse reaction bp 17:20 Drug: Zosyn (piperacillin-tazobactam) 3.375 grams Route: IVPB; Infused Over: 60 mins; kb3 Site: right forearm; 18:44 Follow up: IV Status: Completed infusion; IV Intake: 100ml bp 18:47 Drug: SOLU-Medrol (methylPrednisoLONE) 125 mg Route: IVP; Site: right forearm; bp 18:47 Follow up: Response: No adverse reaction bp 19:22 Drug: Xopenex (levalbuterol) (3) 1.25 mg Route: Inhalation; as6 20:35 Follow up: Response: No adverse reaction as6 Disposition Summary: 07/20/22 18:36 Hospitalization Ordered Hospitalization Status: Inpatient Admission snw Provider: Himanshu Rosenberg Location: Telemetry/MedSurg (Inpatient) snw Condition: Stable snw Problem: an acute exacerbation snw Symptoms: have worsened snw Bed/Room Type: Standard snw Room Assignment: 215(07/20/22 20:04) cg Diagnosis - COPD/ Chronic obstructive pulmonary disease with (acute) exacerbation snw - Cardiomyopathy, unspecified snw - Elevated troponin snw Forms: - Medication Reconciliation Form snw - SBAR form snw Addendum: 08/10/2022 09:33 Co-signature as Attending Physician, Stephen Ryan MD I agree with the assessment and c allison plan of care. Signatures: Dispatcher [employer] EDOR Stephen Ryan MD MD cha Waters, Shelly, LOSS CONTROL ENGINEER-C LOSS CONTROL ENGINEER-Csnw Elmer Bran, LOSS CONTROL ENGINEER-C LOSS CONTROL ENGINEER-Cla1 Kelley Hare, RN RN cg Navid Lopez RN RN bp Nani Hicks RN RN ld1 Kuldeep Keyes RN RN as6 Margy Jang RN RN kb3 Corrections: (The following items were deleted from the chart) 07/20 16:09 16:04 Chest Pa And Lat (2 Views)+RAD.RAD.BRZ ordered. [facility] 20:04 18:36 snw cg
--- NOTE | 2022-07-20 18:37 | ER ---
Nurse's Notes [facility] Name: Yasemin Richard Age: 66 yrs Sex: Female : 1955 Arrival Date: 07/20/2022 Time: 15:47 Bed 5 Private MD: Diagnosis: COPD/ Chronic obstructive pulmonary disease with (acute) exacerbation;Cardiomyopathy, unspecified;Elevated troponin Presentation: 07/20 16:04 Chief complaint: Patient states: SOB X 2 days. Left sided pain when inhaling. ld1 Coronavirus screen: At this time, the client does not indicate any symptoms associated with coronavirus-19. Ebola Screen: No symptoms or risks identified at this time. Initial Sepsis Screen: Does the patient meet any 2 criteria? No. Patient's initial sepsis screen is negative. Does the patient have a suspected source of infection? No. Patient's initial sepsis screen is negative. Risk Assessment: Do you want to hurt yourself or someone else? Patient reports no desire to harm self or others. Onset of symptoms was July 20, 2022. 16:04 Method Of Arrival: Wheelchair ld1 16:04 Acuity: NURIA 3 ld1 Triage Assessment: 16:09 General: Appears in no apparent distress. comfortable, Behavior is calm, cooperative, ld1 appropriate for age. Pain: Complains of pain in left posterior lower lobe. EENT: No signs and/or symptoms were reported regarding the EENT system. Neuro: Level of Consciousness is awake, alert, obeys commands, Oriented to person, place, time, situation. Cardiovascular: Capillary refill < 3 seconds Patient's skin is warm and dry. Respiratory: Reports shortness of breath at rest on exertion Airway is patent Respiratory effort is even, unlabored, Onset: The symptoms/episode began/occurred just prior to arrival, the patient has moderate shortness of breath. 16:09 GI: Abdomen is round non-distended. : No signs and/or symptoms were reported ld1 regarding the genitourinary system. Historical: - Allergies: 16:09 Codeine; ld1 - Home Meds: 16:09 albuterol sulfate 90 mcg/actuation Inhl HFAA 1 puff every 4 hours [Active]; carvedilol ld1 12.5 mg Oral tab 1 tab 2 times per day [Active]; Eliquis 5 mg Oral tab 1 tab 2 times per day [Active]; furosemide 40 mg Oral tab 1 tab once daily [Active]; naproxen 500 mg Oral tab 1 tab 2 times per day [Active]; omeprazole 20 mg Oral cpDR 1 cap once daily [Active]; spironolactone 25 mg Oral tab 1 tab 2 times per day [Active]; trelegy [Active]; - PMHx: 16:09 Hypertensive disorder; COPD; ld1 - Immunization history:: Adult Immunizations up to date, Client reports receiving the 2nd dose of the Covid vaccine. - Social history:: Smoking status: Patient denies any tobacco usage or history of. Patient/guardian denies using alcohol. Screenin:01 Abuse screen: Denies threats or abuse. Denies injuries from another. Nutritional kb3 screening: No deficits noted. Tuberculosis screening: No symptoms or risk factors identified. Fall Risk None identified. Assessment: 16:30 General: SEE TRIAGE NOTE. kb3 17:00 Cardiovascular: Rhythm is sinus tachycardia. Respiratory: Airway is patent Respiratory kb3 effort is labored, Breath sounds are coarse bilaterally. 17:59 Reassessment: PT TO CT. kb3 19:25 General: Appears in no apparent distress. Respiratory: Reports shortness of breath as6 Respiratory effort is even, labored. Vital Signs: 16:04 BP 115 / 83; Pulse 114; Resp 30; Temp 98.3(O); Pulse Ox 98% on R/A; Weight 82.55 kg; ld1 Height 5 ft. 5 in. (165.10 cm); Pain 6/10; 17:00 BP 122 / 74; Pulse 107; Resp 20; Pulse Ox 95% ; kb3 17:59 BP 106 / 72; Pulse 105; Resp 17; Pulse Ox 94% on R/A; kb3 19:26 BP 122 / 79; Pulse 104; Resp 16 S; Pulse Ox 97% on 8% Nebulizer Mask; as6 16:04 Body Mass Index 30.28 (82.55 kg, 165.10 cm) ld1 ED Course: 15:47 Patient arrived in ED. rg4 15:53 Tonia Velasquez FNP-C [facility]. snw 15:53 Stephen Ryan MD is Attending Physician. snw 16:05 Triage completed. ld1 16:09 Arm band placed on right wrist. ld1 16:28 Kourtney Yousif, TANYA is Primary Nurse. mb9 16:44 XRAY Chest (1 view) In Process Unspecified. EDMS 17:01 Patient has correct armband on for positive identification. Bed in low position. Call kb3 light in reach. Side rails up X2. Adult w/ patient. 17:15 Inserted saline lock: 20 gauge in right forearm, using aseptic technique. Blood kb3 collected. 17:18 Margy Jang, RN is Primary Nurse. kb3 18:08 Primary Nurse role handed off by Margy Jang, TANYA bp 18:08 Navid Lopez, RN is Primary Nurse. bp 18:20 Chest For Pe Angio In Process Unspecified. EDMS 18:35 Himanshu Rosenberg MD is Hospitalizing Provider. snw 19:26 No provider procedures requiring assistance completed. Patient admitted, IV remains in as6 place. Administered Medications: 16:30 Drug: Aspirin Chewable Tablet 324 mg Route: PO; kb3 18:48 Follow up: Response: No adverse reaction bp 17:20 Drug: Zosyn (piperacillin-tazobactam) 3.375 grams Route: IVPB; Infused Over: 60 mins; kb3 Site: right forearm; 18:44 Follow up: IV Status: Completed infusion; IV Intake: 100ml bp 18:47 Drug: SOLU-Medrol (methylPrednisoLONE) 125 mg Route: IVP; Site: right forearm; bp 18:47 Follow up: Response: No adverse reaction bp 19:22 Drug: Xopenex (levalbuterol) (3) 1.25 mg Route: Inhalation; as6 20:35 Follow up: Response: No adverse reaction as6 Medication: 19:26 VIS not applicable for this client. as6 Intake: 18:44 IV: 100ml; Total: 100ml. bp Outcome: 18:36 Decision to Hospitalize by Provider. snw 20:40 Admitted to Med/surg accompanied by tech, via stretcher, room 215, with oxygen, with as6 chart. 20:40 Condition: stable 20:40 Instructed on the need for admit. 20:41 Patient left the ED. as6 Signatures: Dispatcher [employer] [facility] Tonia Velasquez FNP-C FNP-Valeria Glasgow rg4 Navid Lopez RN RN bp Nani Hicks RN RN ld1 Kuldeep Keyes, TANYA RN as6 Margy Jang RN RN kb3 Kourtney Yousif RN RN mb9 Corrections: (The following items were deleted from the chart) 16:10 16:04 BP 6 / 83; Pulse 114bpm; Resp 30bpm; Pulse Ox 98% RA; Temp 98.3F Oral; 82.55 kg; ld1 Height 5 ft. 5 in.; BMI: 30.2; Pain 6/10; ld1 18:01 17:59 BP 106 / 72; Pulse 105bpm; Resp 17bpm; Pulse Ox 90% RA; kb3 kb3 18:01 17:59 Reassessment: CT PENDING. 2LNC PLACED, PER PROTOCOL kb3 kb3
[2022-07-20] MEDS ORDERED: METHYLPREDNISOLONE 125 MG INJ ONE (18:46)
[2022-07-20] MEDS ORDERED: LEVALBUTEROL 1.25 MG/3 ML NEB ONE (19:08)
--- NOTE | 2022-07-20 19:11 | P.HP ---
Certification for Inpatient Patient admitted to: Inpatient With expected LOS: >2 Midnights Patient will require the following post-hospital care: None Practitioner: I am a practitioner with admitting privileges, knowledge of patient current condition, hospital course, and medical plan of care. Services: Services provided to patient in accordance with Admission requirements found in Title 42 Section 412.3 of the Code of Federal Regulations Patient History Date of Service: 07/20/22 Reason for admission: COPD exacerbation, elevated troponin History of Present Illness: 66-year-old female with history of hypertension, COPD, cardiomyopathy presents emergency department for shortness of breath. She reports increasing shortness of breath over the course the last 1 month especially bad over the course last 5 days. She was seen by pulmonology yesterday who put her on Carmen Soto for concern for possible pulmonary embolism and COPD exacerbation. She is previously taking prednisone 10 mg daily but felt as if this was not helping so she discontinued it. She was evaluated here in the emergency department labs were significant for creatinine 1.51 GFR 38 high-sensitivity troponin 71.6 BNP 1488 CTA chest was performed to rule out pulmonary embolism which showed no evidence of pulmonary thromboembolism, prominent diffuse COPD present. No tyler rce of infection identified although SIRS criteria were present. Will admit for further evaluation and management of COPD exacerbation, elevated troponin. - Past Medical/Surgical History -: cardiomyopathy -: COPD -: Hypertension -: -: Wrist surgery Psychosocial/ Personal History: Patient lives at home with her daughter - Family History Family History: Reviewed- Non-Contributory - Social History Smoking Status: Former smoker Alcohol use: No CD- Drugs: No Caffeine use: Yes Place of Residence: Home Review of Systems 10-point ROS is otherwise unremarkable General: Weakness, Malaise Respiratory: Shortness of Breath, SOB with Excertion Physical Examination - Physical Exam General: Alert, In no apparent distress, Oriented x3 HEENT: Atraumatic, PERRLA, Mucous membr. moist/pink, EOMI, Sclerae nonicteric Neck: Supple, 2+ carotid pulse no bruit, No LAD, Without JVD or thyroid abnormality Respiratory: Diminished, Expiratory wheezes Cardiovascular: No edema, Regular rate/rhythm, Normal S1 S2 Capillary refill: <2 Seconds Gastrointestinal: Normal bowel sounds, No tenderness Musculoskeletal: No tenderness Integumentary: No rashes Neurological: Normal speech, Normal strength at 5/5 x4 extr, Normal tone, Normal affect - Studies Laboratory Data (last 24 hrs) 07/20/22 17:15: PT 14.1 H, INR 1.28 07/20/22 17:15: WBC 10.20, Hgb 14.5, Hct 43.6, Plt Count 225 07/20/22 17:15: Sodium 137, Potassium 3.8, BUN 29 H, Creatinine 1.51 H, Glucose 95, Magnesium 2.3, Total Bilirubin 1.2 H, AST 27, ALT 23, Alkaline Phosphatase 76 Microbiology Data (last 24 hrs): 07/20/22 17:15 Nasopharnyx Influenza Type A Antigen Screen - Final 07/20/22 17:15 Nasopharnyx Influenza Type B Antigen Screen - Final Assessment and Plan - Plan Assessment: COPD with exacerbation NSTEMI Renal insufficiency Hypertension Cardiomyopathy/CHF Plan: COPD with exacerbation: Continue IV steroids, supplemental oxygen as needed, incentive spirometry, scheduled nebulizer treatments, Trelegy. Monitor daily room air saturations. NSTEMI: Suspect event ischemia related to dyspnea/tachycardia, hypoxia. Pulmonary embolism ruled out EKG without ST elevations. Will obtain echocardiogram given history of cardiomyopathy as well as cardiology consult. Trend troponins and monitor on telemetry. Patient reports last tress test earlier this year negative last heart cath "many years ago". Renal insufficiency: Unsure of baseline creatinine 1.52. Patient appears a little on the dry side we will continue gentle hydration overnight monitor for signs of overload. Recheck BMP in the morning. Hypertension: Continue medications as appropriate Cardiomyopathy/CHF: Takes Lasix at home, does not appear to be overloaded at this time BNP moderately elevated as well as mild elevation in troponin. We will be giving gentle IV fluids overnight given creatinine 1.52 and recent contrast exposure for CT PE protocol. Echocardiogram ordered. DVT PPX: Continue Eliquis Code status: Full Discharge Plan: Home Plan to discharge in: 48 Hours - Advance Directives Does patient have a Living Will: No Does patient have a Durable POA for Healthcare: No - Code Status/Comfort Care Code Status Assessed: Yes (Full code) Critical Care: No Time Spent Managing Pts Care (In Minutes): 70
[2022-07-20] MEDS ORDERED: NA CHLORIDE 0.9% 1,000 ML IV SCH (21:15)
[2022-07-20] MEDS ORDERED: MELATONIN 5 MG TABLET PO PRN (21:15)
[2022-07-20] MEDS ORDERED: ONDANSETRON 4 MG/2 ML VIAL IV PRN (21:15)
[2022-07-20] MEDS ORDERED: IPRATROPIUM BROM 0.5MG/2.5ML ONE (21:30)
[2022-07-20] MEDS ORDERED: ALBUTEROL 2.5 MG/3 ML NEB SOL ONE (21:30)
[2022-07-20 21:45] VITALS: BMI 30.2
[2022-07-20] MEDS: IPRATROPIUM BROM 0.5MG/2.5ML NEB SCH (22:20)
[2022-07-20] MEDS: ALBUTEROL 2.5 MG/3 ML NEB SOL NEB SCH (22:20)
[2022-07-21] MEDS: METHYLPREDNISOLONE 40 MG INJ IV SCH ×3 (00:35→17:26)
[2022-07-21] MEDS: ALBUTEROL 2.5 MG/3 ML NEB SOL NEB SCH ×4 (02:45→20:05)
[2022-07-21] MEDS: IPRATROPIUM BROM 0.5MG/2.5ML NEB SCH ×4 (02:45→20:05)
[2022-07-21 06:15] LABS: Hematocrit 36.9 % (36.0-45.0); Lymphocytes % 17.9 % (15.3-44.8); MCV 91.3 fL (80-100); MPV 7.4 fL (7.6-11.3); RBC Red Blood Cell Count 4.04 M/uL (3.86-4.86)
[2022-07-21 06:33] LABS: Albumin 2.1 g/dL (3.4-5.0); Bilirubin Total 0.6 mg/dL (0.2-1.0); Protein, Total 5.4 g/dL (6.4-8.2); Troponin High Sensitivity 43.5 pg/mL (<58.9)
[2022-07-21] MEDS ORDERED: PNEUMOCOCCAL VACCINE 0.5 ML IMVAC ONE (08:00)
[2022-07-21] MEDS ORDERED: INFLUENZA VACCINE (for 6+ mo) 0.5 ML DOSE IMVAC ONE (08:00)
[2022-07-21] MEDS ORDERED: FUROSEMIDE 40 MG TABLET PO SCH (09:00)
[2022-07-21] MEDS: Fluticasone/Umeclidin/Vilanter [Trelegy Ellipta 100-62.5-25] Blst.W.Dev IH SCH (09:00)
[2022-07-21] MEDS ORDERED: SPIRONOLACTONE 25 MG TABLET PO SCH (09:00)
[2022-07-21] MEDS: carvediloL 12.5 MG TAB PO SCH ×2 (09:25→21:22)
[2022-07-21] MEDS: APIXABAN 5 MG TABLET PO SCH ×2 (09:25→21:21)
[2022-07-21] MEDS: CETIRIZINE HCL 5 MG TABLET PO SCH (09:25)
--- NOTE | 2022-07-21 15:14 | CON ---
Date of Consultation: 07/21/2022 Reason For Consultation: Elevated troponin. History Of Present Illness: 66-year-old female, history of hypertension, COPD, cardiomyop athy long time ago. She had been following up with a wire bender in [place] and had a stress test back in March and echo that checked out normal. She comes in to the emergency room with shortness of breath, wheezing, worsening for the past 5 days, known to have COPD and denies having any nausea, vom iting, or diarrhea. No chest pain. Past Medical History: As outlined above in the HPI. Medications: Refer to reconciliation sheet for detailed list. Allergies: CODEINE. Past Surgical History: . Family History: No premature coronary artery disease or cancer. Social History: She is an ex-smoker. Does not drink or use any drugs. Does not smoke at the presen t time. Review of Systems: All systems reviewed and they were negative except for mentioned in HPI. Physical Examination: Vital Signs: Reviewed. Head and Neck: Pupils are equal, reactive to light. Intact eye movements. No JVD. No cervical lym phadenopathy. Neck is supple. Thyroid is not enlarged. Lungs: Wheezing bilaterally with rhonchi. No accessory muscle use or muscle retraction. Heart: Regular rate and rhythm. No extra sounds. Abdomen: Soft, nontender. Bowel sounds positive. No organomegaly. No masses or hernia. No rigidi ty or rebound. Extremities: No edema, clubbing, or cyanosis. Intact pulses. Skin: No rash. Neurologic: Alert, awake, and oriented x3. No acute focal deficits appreciated. Investigations: Troponin 71 and then 60 and then 43. Assessment And Recommendation: 1.Elevated troponin. No chest pain. This is demand ischemia and not acute coronary syndrome. Skye ent had a workup including stress test within the recent past that was normal as per report. At this point, no further cardiac workup is recommended except an echocardiogram to evaluate ejection fracti on and plan accordingly. 2.Chronic obstructive pulmonary disease exacerbation. Patient is improving with nebulizers and oxyg en therapy. 3.History of cardiomyopathy. Please obtain echocardiogram to evaluate ejection fraction. SR/MODL Voice ID: [id number] Report ID: [id number]
--- NOTE | 2022-07-21 17:04 | P.PN ---
Date of Service: 07/21/22 Subjective: slight improvement still on O2 supplementation no chest pain currently generalized weakness, fatigue ROS: 10 point ROS as noted above, otherwise negative Physical exam GEN: Alert, oriented, NAD HEENT: Normal conjunctiva, sclera anicteric CV: Regular rate and rhythm, no edema Pulm: mild labored respirations on 3L NC, bilateral wheeze ABD: Soft, nontender, nondistended Neuro: Normal speech, normal affect Problem List COPD with exacerbation NSTEMI Renal insufficiency Hypertension Cardiomyopathy/CHF COPD exacerbation CT with diffuse emphysematous changes Recently seen by pulmonology 2 days ago, started on Trelegy Suspect this is all secondary to acute on chronic COPD exacerbation continue treatment wean O2 NSTEMI - demand ischemia trop trending flat/down Cardiology consulted Echo okay h/o cardiomyopathy likely demand ischemia appears to be at baseline renal function HTN - continue home meds h/o CHF/cardiomyopathy does not appear volume overloaded s/p gentle IVF echo ok VTE: Eliquis Code: Full Dispo: Home,~2 days Time Spent Managing Pts Care (In Minutes): 35
[2022-07-21] MEDS: MONTELUKAST 10 MG TAB PO SCH (21:22)
[2022-07-22] MEDS: METHYLPREDNISOLONE 40 MG INJ IV SCH ×2 (00:03→08:37)
[2022-07-22] MEDS: ALBUTEROL 2.5 MG/3 ML NEB SOL NEB SCH ×2 (02:00→08:00)
[2022-07-22] MEDS: IPRATROPIUM BROM 0.5MG/2.5ML NEB SCH ×3 (02:00→08:00)
[2022-07-22 03:32] LABS: Lymphocytes % 6.1 % (15.3-44.8); MCV 91.6 fL (80-100); MPV 7.4 fL (7.6-11.3); RBC Red Blood Cell Count 3.93 M/uL (3.86-4.86)
[2022-07-22 03:52] LABS: Albumin 2.3 g/dL (3.4-5.0); Bilirubin Total 0.6 mg/dL (0.2-1.0); Potassium 4.2 mmol/L (3.5-5.1); Protein, Total 5.3 g/dL (6.4-8.2)
[2022-07-22] MEDS: ACETAMINOPHEN 500 MG TAB PO PRN (04:51)
--- NOTE | 2022-07-22 06:23 | P.PN ---
Date of Service: 07/22/22 Subjective: Noted to be hypoxic while sleeping, on 2 L nasal cannula, increased to 4 L denies any COLIN history; never had a sleep study overall feels she is slowly improving no new/worsening symptoms ROS: 10 point ROS as noted above, otherwise negative Physical exam GEN: Alert, oriented, NAD HEENT: Normal conjunctiva, sclera anicteric CV: Regular rate and rhythm, no edema Pulm: non labored respirations on 4L NC at rest, mild bilateral wheeze ABD: Soft, nontender, nondistended Neuro: Normal speech, normal affect Problem List Acute on chronic COPD with exacerbation NSTEMI, demand ischemia Renal insufficiency Hypertension Cardiomyopathy/CHF COPD exacerbation CT with diffuse emphysematous changes Recently seen by pulmonology 2 days prior to admission, started on Trelegy Suspect this is all secondary to acute on chronic COPD exacerbation continue treatment wean O2 NSTEMI - demand ischemia trop trending flat/down Cardiology consulted Echo okay h/o cardiomyopathy likely demand ischemia Renal insufficiency Uncertain of patient's baseline, slight improvement HTN - continue home meds h/o CHF/cardiomyopathy does not appear volume overloaded s/p gentle IVF echo reportedly ok VTE: Eliquis Code: Full Dispo: Home,~1-2 days wean O2, may need home O2 set up Time Spent Managing Pts Care (In Minutes): 35
[2022-07-22] MEDS: CETIRIZINE HCL 5 MG TABLET PO SCH (08:36)
[2022-07-22] MEDS: carvediloL 12.5 MG TAB PO SCH ×2 (08:36→20:22)
[2022-07-22] MEDS: Fluticasone/Umeclidin/Vilanter [Trelegy Ellipta 100-62.5-25] Blst.W.Dev IH SCH (08:37)
[2022-07-22] MEDS: APIXABAN 5 MG TABLET PO SCH ×2 (08:37→20:22)
[2022-07-22] MEDS ORDERED: ALBUTEROL 2.5 MG/3 ML NEB SOL NEB PRN (11:36)
[2022-07-22] MEDS ORDERED: AZITHROMYCIN IV 500 MG in NA CHLORIDE 0.9% 250 ML IVPB SCH (12:00)
--- NOTE | 2022-07-22 16:09 | PN ---
Date of Progress Note: 07/22/2022 Subjective: Seen at bedside, doing clinically well. Review of Systems: Denies any chest pain, shortness of breath, orthopnea, or cough. No nausea, vomiting, diarrhea. No abdominal pain. No dysuria, polyuria, or urgency. All other systems reviewed are negative. Physical Examination: Vital signs: Reviewed. Head and Neck: Pupils are equal, reactive to light. Intact eye movements. No JVD. No cervical lym phadenopathy. Neck is supple. Thyroid is not enlarged. Lungs: Decreased breathing sounds with scattered wheezing. No accessory muscle use or muscle retrac tion. Heart: Regular rate and rhythm. No extra sounds. Abdomen: Soft, nontender. Bowel sounds positive. No organomegaly. No masses or hernia. No rigidi ty or rebound. Extremities: No clubbing, cyanosis. Intact pulses. Skin: No rash. Neurologic: Alert, awake, oriented x3. No acute focal deficits appreciated. Investigations: Labs reviewed. Assessment And Recommendation: 1.Elevated troponin. This is demand ischemia and not an acute coronary syndrome. No further cardia c workup is needed. Her ejection fraction is normal on echo with normal wall motion. 2.Chronic obstructive pulmonary disease exacerbation, doing better clinically. 3.Acute renal failure that is resolved as well. Her creatinine is normal today. Cardiology will sign off on the case and patient is to follow up with her primary card iologist post discharge. /FAZAL Voice ID: [id number] Report ID: [id number]
[2022-07-22] MEDS: predniSONE 20 MG TAB PO SCH (16:13)
[2022-07-22] MEDS: MONTELUKAST 10 MG TAB PO SCH (20:22)
[2022-07-22] MEDS: IPRATROPIUM BROM 0.5MG/2.5ML NEB PRN (23:04)
[2022-07-22] MEDS ORDERED: METOPROLOL TARTRATE 5 MG/5 ML INJ IV STA (23:21)
[2022-07-22] MEDS ORDERED: METOPROLOL TARTRATE 5 MG/5 ML INJ IV ONE (23:26)
[2022-07-23] MEDS ORDERED: DIGOXIN 0.25 MG/ML AMP IV ONE (02:40)
[2022-07-23] MEDS ORDERED: METOPROLOL TARTRATE 5 MG/5 ML INJ IV STA (04:13)
[2022-07-23] MEDS: PANTOPRAZOLE 40MG TABLET PO SCH (05:36)
--- NOTE | 2022-07-23 05:55 | P.PN ---
Date of Service: 07/23/22 Subjective: last night / overnight with nosebleed, blood-tinged sputum, increased cough afib overnight, no history of prior arrhythmia ROS: 10 point ROS as noted above, otherwise negative Physical exam GEN: Alert, oriented, mild distress HEENT: Normal conjunctiva, sclera anicteric, R nare with old/dried blood CV: irregularly irregular rhythm, no edema Pulm: mild labored respirations on nonrebreather, diminished at bases bilaterally ABD: Soft, nontender, nondistended Neuro: Normal speech, normal affect Problem List Acute on chronic COPD with exacerbation NSTEMI, demand ischemia Afib, new onset LEOBARDO Epistaxis Hypertension Cardiomyopathy/CHF acute on chronic COPD exacerbation recently diagnosed with COPD a few days prior to admission CT with diffuse emphysematous changes Recently seen by pulmonology 2 days prior to admission, started on Trelegy symptoms on presentation most consistent with COPD Exacerbation, possible CHF component continue treatment wean O2 dc albuterol, now that patient is in afib, dc azithromycin NSTEMI - demand ischemia trop trending flat/down Cardiology consulted - Echo reportedly okay, no report up yet, h/o cardiomyopathy Afib, new onset coreg switched to metoprolol s/p lopressor 5mg IV x3 overnight 4th dose of lopressor given late morning, patient converted to sinus Epistaxis secondary to anticoagulation and dry mucous membranes from oxygen afrin ordered, discussed holding pressure for longer duration with patient hold anticoagulation LEOBARDO, unknown baseline Uncertain of patient's baseline, improving HTN - continue home meds h/o CHF/cardiomyopathy s/p gentle IVF echo reportedly ok check CXR today, VTE: Eliquis held Code: Full Dispo: Home,~2 days wean O2, may need home O2 set up Time Spent Managing Pts Care (In Minutes): 35
[2022-07-23 06:40] LABS: Hematocrit 35.3 % (36.0-45.0); Lymphocytes % 5.6 % (15.3-44.8); MCV 92.4 fL (80-100); MPV 7.3 fL (7.6-11.3); RBC Red Blood Cell Count 3.82 M/uL (3.86-4.86)
[2022-07-23 06:58] LABS: Albumin 2.3 g/dL (3.4-5.0); Bilirubin Total 0.7 mg/dL (0.2-1.0); Magnesium 2.6 mg/dL (1.8-2.4); Potassium 4.2 mmol/L (3.5-5.1); Protein, Total 5.4 g/dL (6.4-8.2); Thyroid Stimulating Hormone 0.429 uIU/mL (0.360-3.740)
[2022-07-23] MEDS: BENZONATATE 100 MG CAP PO PRN (07:59)
[2022-07-23] MEDS: CETIRIZINE HCL 5 MG TABLET PO SCH (07:59)
[2022-07-23] MEDS: APIXABAN 5 MG TABLET PO SCH (08:00)
[2022-07-23] MEDS: predniSONE 20 MG TAB PO SCH ×2 (08:00→16:32)
[2022-07-23] MEDS: Fluticasone/Umeclidin/Vilanter [Trelegy Ellipta 100-62.5-25] Blst.W.Dev IH SCH (08:00)
[2022-07-23] MEDS: METOPROLOL TAR 50 MG TAB PO SCH ×2 (08:00→20:37)
[2022-07-23] MEDS ORDERED: OXYMETAZOLINE HCL 0.05% 15ML NAS PRN (08:24)
[2022-07-23] MEDS ORDERED: GUAIFENESIN/CODEINE 5ML UCUP PO PRN (08:36)
--- NOTE | 2022-07-23 09:01 | RAD REPORT ---
EXAM DESCRIPTION: Jaime Single View07/23/2022 6:50 am CLINICAL HISTORY: Hypoxia COMPARISON: July 20, 2022 FINDINGS: Mild bilateral pulmonary opacities are present. The heart is mildly to moderately enlarged IMPRESSION: Mild CHF
[2022-07-23] MEDS: FUROSEMIDE 40 MG/4 ML VIAL IV SCH (16:32)
[2022-07-23] MEDS: MONTELUKAST 10 MG TAB PO SCH (20:37)
[2022-07-24 04:07] LABS: Hematocrit 34.1 % (36.0-45.0); MCV 91.8 fL (80-100); MPV 7.2 fL (7.6-11.3); RBC Red Blood Cell Count 3.71 M/uL (3.86-4.86)
[2022-07-24 04:24] LABS: Magnesium 2.5 mg/dL (1.8-2.4); Potassium 4.3 mmol/L (3.5-5.1)
[2022-07-24] MEDS: PANTOPRAZOLE 40MG TABLET PO SCH (05:07)
[2022-07-24] MEDS: ACETAMINOPHEN 500 MG TAB PO PRN ×2 (05:07→18:22)
[2022-07-24] MEDS: BENZONATATE 100 MG CAP PO PRN (05:25)
[2022-07-24] MEDS: IPRATROPIUM BROM 0.5MG/2.5ML NEB PRN (05:30)
--- NOTE | 2022-07-24 06:23 | P.PN ---
Date of Service: 07/24/22 Subjective: Feels like she was improving yesterday. Early this morning woke up more short of breath, coughing morning Epistaxis/blood-tinged sputum decreasing, but still occurring at times Converted to sinus rhythm yesterday ROS: 10 point ROS as noted above, otherwise negative Physical exam GEN: Alert, oriented, NAD HEENT: Normal conjunctiva, sclera anicteric, R nare with old/dried blood CV: Regular rate and rhythm, no edema Pulm: Nonlabored respirations on Venturi mask, diminished at bases bilaterally, mild wheeze ABD: Soft, nontender, nondistended Neuro: Normal speech, normal affect Problem List Acute on chronic COPD with exacerbation NSTEMI, demand ischemia Afib, new onset (resolved) LEOBARDO Epistaxis Hypertension Cardiomyopathy/CHF acute on chronic COPD exacerbation recently diagnosed with COPD a few days prior to admission CT with diffuse emphysematous changes Recently seen by pulmonology 2 days prior to admission, started on Trelegy symptoms on presentation most consistent with COPD Exacerbation, possible CHF component continue treatment wean O2 dc albuterol, now that patient is in afib, dc azithromycin NSTEMI - demand ischemia trop trending flat/down Cardiology consulted - Echo reportedly okay, no report up yet, h/o cardiomyopathy Afib, new onset Likely combination of all the different medications, including azithromycin which has been discontinued coreg switched to metoprolol s/p lopressor 5mg IV x3 overnight 4th dose of lopressor given late morning 07/23, patient converted to sinus Epistaxis secondary to anticoagulation and dry mucous membranes from oxygen afrin ordered, discussed holding pressure for longer duration with patient hold anticoagulation LEOBARDO, unknown baseline Uncertain of patient's baseline but improved HTN - continue home meds h/o CHF/cardiomyopathy s/p gentle IVF echo reportedly ok check CXR today - Follow-up bilateral opacities, possibly mildmoderate CHF Lasix switched to IV on 07/23, monitor blood pressure VTE: Eliquis held started 1 loose 2 days prior to admission by pulmonology, as empiric treatment for PE, which was negative on CT chest at time of admission Code: Full Dispo: Home,~2-3 days wean O2, may need home O2 set up Time Spent Managing Pts Care (In Minutes): 35
--- NOTE | 2022-07-24 07:20 | ECHO ---
HEIGHT: 5 ft 5 in WEIGHT: 182 lb 0 oz DATE OF STUDY: 07/21/[address]: Elmer Bran NP 2-DIMENSIONAL: YES M.MODE: YES DOPPLER: YES COLOR FLOW: YES TDS: PORTABLE: YES DEFINITY: BUBBLE STUDY: DIAGNOSIS: ELEVATED TROPONIN CARDIAC HISTORY: CATHERIZATION: SURGERY: PROSTHETIC VALVE: PACEMAKER: MEASUREMENTS (cm) DIASTOLIC (NORMALS) SYSTOLIC (NORMALS) IVSd 1.2 (0.6-1.2) LA Diam 3.1 (1.9-4.0) LVEF 67% LVIDd 4.9 (3.5-5.7) LVIDs 3.1 (2.0-3.5) %FS 37% LVPWd 1.0 (0.6-1.2) Ao Diam 3.2 (2.0-3.7) 2 DIMENSIONAL ASSESSMENT: RIGHT ATRIUM: NORMAL LEFT ATRIUM: NORMAL RIGHT VENTRICLE: NORMAL LEFT VENTRICLE: NORMAL TRICUSPID VALVE: MILD TRICUSPID REGURGITATION MITRAL VALVE: MILD MITRAL REGURGITATION PULMONIC VALVE: NORMAL AORTIC VALVE: MILD AORTIC INSUFFICIENCY PERICARDIAL EFFUSION: NONE AORTIC ROOT: NORMAL LEFT VENTRICULAR WALL MOTION: NORMAL DOPPLER/COLOR FLOW: SEE BELOW COMMENTS: NORMAL LEFT VENTRICULAR EJECTION FRACTION 60-65%. NORMAL WALL MOTION. MILD MITRAL REGURGITATION/ MILD AORTIC INSUFFICIENCY. MILD TRICUSPID REGURGITATION. TECHNOLOGIST: DANETTE HUANG
--- NOTE | 2022-07-24 07:49 | RAD REPORT ---
EXAM DESCRIPTION: Jaime Single View07/24/2022 6:41 am CLINICAL HISTORY: Hypoxia COMPARISON: July 23, 2022 FINDINGS: Mild bilateral pulmonary opacities unchanged Heart remains enlarged IMPRESSION: No significant change in mild CHF
[2022-07-24] MEDS: predniSONE 20 MG TAB PO SCH ×2 (08:46→16:09)
[2022-07-24] MEDS: METOPROLOL TAR 50 MG TAB PO SCH ×2 (08:46→20:39)
[2022-07-24] MEDS: FUROSEMIDE 40 MG/4 ML VIAL IV SCH (08:47)
[2022-07-24] MEDS: CETIRIZINE HCL 5 MG TABLET PO SCH (08:47)
[2022-07-24] MEDS: Fluticasone/Umeclidin/Vilanter [Trelegy Ellipta 100-62.5-25] Blst.W.Dev IH SCH (08:48)
--- NOTE | 2022-07-24 13:34 | P.PN ---
Date of Service: 07/24/22 ENT Consultation Please see dictated H&P. Impression/Plan: 1. Acute right anterior nasal septal epistaxis-- resolved s/p simple anterior right nasal cavity septal cauterization with silver nitrate. Hemopore packing inserted at cautery site. 2. Refrain from picking-- wear mustache dressings daily until seen by me. 3. Followup outpatient in 1-2 weeks-- business card given. Thank you, Dr. Rosenberg, for this most interesting consultation.
--- NOTE | 2022-07-24 16:00 | EKG ---
Test Date: 2022-07-22 Test Time: 23:06:11 [employer]: MICHELLE MEASUREMENT RESULTS: Intervals: Rate: 132 LA: QRSD: 70 QT: 264 QTc: 391 [place]: P: LA: QRS: 1 T: -34 INTERPRETIVE STATEMENTS: Atrial fibrillation with rapid ventricular response Low voltage QRS Nonspecific ST and T wave abnormality, probably digitalis effect Abnormal ECG No previous ECG available for comparison Electronically Signed On 07-24-22 15:57:54 CDT by Thierry Crenshaw
[2022-07-24] MEDS: MONTELUKAST 10 MG TAB PO SCH (20:39)
[2022-07-24] MEDS ORDERED: METOPROLOL TARTRATE 5 MG/5 ML INJ IV STA (22:06)
[2022-07-24] MEDS ORDERED: ALBUMIN HUMAN 25% 100 ML IV ONE (22:07)
[2022-07-24] MEDS ORDERED: NA CHLORIDE 0.9% 250 ML IV ONE (22:07)
[2022-07-25 03:44] LABS: Absolute Lymphocytes (CBC) 1.6 K/uL (0.7-4.9); Hematocrit 35.1 % (36.0-45.0); Lymphocytes % 14.7 % (15.3-44.8); MCV 91.8 fL (80-100); MPV 7.4 fL (7.6-11.3); RBC Red Blood Cell Count 3.83 M/uL (3.86-4.86)
[2022-07-25 03:59] LABS: Albumin 2.1 g/dL (3.4-5.0); Magnesium 2.6 mg/dL (1.8-2.4); Potassium 4.1 mmol/L (3.5-5.1); Protein, Total 5.6 g/dL (6.4-8.2)
[2022-07-25 04:42] LABS: Blood Morphology Comment NOT SEEN (NOT SEEN); Platelet Estimate ADEQ
[2022-07-25] MEDS: PANTOPRAZOLE 40MG TABLET PO SCH (05:30)
[2022-07-25] MEDS ORDERED: LIDOCAINE 1% MPF 5 ML VIAL ONE (07:48)
[2022-07-25] MEDS ORDERED: EPINEPHRINE/PF 1 MG/ML AMP ONE (07:48)
[2022-07-25] MEDS ORDERED: dexAMETHasone 10 MG/ML VIAL ONE ×2 (07:48→07:57)
[2022-07-25] MEDS ORDERED: BUPIVACAINE 0.25% PF 30 ML VIAL ONE (07:49)
[2022-07-25] MEDS: METOPROLOL TAR 50 MG TAB PO SCH ×2 (08:29→20:16)
[2022-07-25] MEDS: predniSONE 20 MG TAB PO SCH ×2 (08:29→16:00)
[2022-07-25] MEDS: CETIRIZINE HCL 5 MG TABLET PO SCH (08:29)
[2022-07-25] MEDS: Fluticasone/Umeclidin/Vilanter [Trelegy Ellipta 100-62.5-25] Blst.W.Dev IH SCH (08:30)
[2022-07-25] MEDS: FUROSEMIDE 40 MG/4 ML VIAL IV SCH (08:30)
--- NOTE | 2022-07-25 09:27 | CON ---
Date of Consultation: 07/24/2022 Chief Complaint: Right nasal cavity bleeding. History Of Present Illness: Patient is a pleasant 66-year-old female who was admitted for COPD with exacerbation, cardiac ischemia, renal insufficiency, hypertension, and cardiomyopathy, developed righ t nasal cavity bleeding during admission. Eliquis was held and the bleeding slowed down, but has not resolved. She denies frequent nosebleeds, ER visits due to nosebleeds, nasal trauma, frequent nasal picking, history of bleeding disorders, although patient has had pulmonary thromboembolism in the [facility]. She denies nasal pain, drainage. Has inhalant allergies, which she treats with [id number] antihistamines and states that she has had a flare-up in her allergies recently. She has swallowed some blood, but states that it is very little currently. No other ENT complaints today. Past Medical History: Cardiomyopathy, COPD, hypertension. Past Surgical History: section and wrist surgery. Social History: Former smoker. No alcohol. Review of Systems: Head: Denies headache, trauma, confusion. Eyes: Denies drainage, blurry, or double vision. Ears: Denies ear drainage, pain, hearing loss, or tinnitus. Nose: Positive for right nasal cavity bleeding and inhalant allergies resulting in occasional postna praveen drip and rhinorrhea. Denies nasal trauma. Throat: Positive for trickle of blood presumably from the right nasal cavity. Denies exudate, airwa y obstruction, swelling, or soreness. Neck: Denies mass or lymph node enlargement. Physical Examination: Vital Signs: Stable. Patient is on oxygen and O2 sats are in the mid 90s. Head: Atraumatic, normocephalic. Eyes: PERRLA. EOMI. Ears: Bilateral external auditory canals patent. Tympanic membranes intact. Nose: Left nasal cavity demonstrates no evidence of bleeding, ulceration, exudate. Right nasal cavity demonstrates an anterior eschar with drainage, which was removed with a small cott on swab. Patient had mild oozing of blood noted at the anterior caudal septum. I was able to cauter ize with silver nitrate cautery and patient tolerated well. This was simple cauterization of the rig ht nasal septum bleeding. I did not detect any posterior bleeding. Mupirocin ointment was placed ov er the cautery site and a mustache dressing was placed. Throat: Oropharynx intact. No evidence of posterior oropharyngeal bleeding, blood clots, and no uday dence of exudate or swelling. NECK: Supple. Trachea midline. Diagnosis: Acute right nasal cavity epistaxis, status post silver nitrate cauterization. Recommendations: 1.I recommend the patient wear a mustache dressing until seen in the office. This will keep her valentine ds away from her nose as I suspect that there has been some picking and rubbing. 2.Follow up in 1-2 weeks outpatient. Thank you Dr. Rosenberg for this most interesting consultation. ELIZABET/FAZAL Voice ID: [id number] Report ID: [id number]
[2022-07-25] MEDS: IPRATROPIUM BROM 0.5MG/2.5ML NEB PRN (10:16)
--- NOTE | 2022-07-25 12:03 | P.PN ---
Subjective Date of Service: 07/25/22 Chief Complaint: COPD exacerbation, elevated troponin Patient has no more epistaxis. She is currently requiring oxygen by Ventimask, 50% FiO2. Physical Examination - Vital Signs Temperature: 97.3 F Blood Pressure: 100/62 Pulse: 95 Respirations: 18 Pulse Ox (%): 91 Assessment And Plan - Plan Physical exam GEN: Alert, oriented, NAD HEENT: Normal conjunctiva, sclera anicteric, R nare with old/dried blood CV: Regular rate and rhythm, no edema Pulm: Nonlabored respirations on Venturi mask, diminished at bases bilaterally, mild wheeze ABD: Soft, nontender, nondistended Neuro: Normal speech, normal affect Problem List Acute on chronic COPD with exacerbation NSTEMI, demand ischemia Afib, new onset (resolved) LEOBARDO Epistaxis Hypertension Cardiomyopathy/CHF acute on chronic COPD exacerbation recently diagnosed with COPD a few days prior to admission CT with diffuse emphysematous changes Recently seen by pulmonology 2 days prior to admission, started on Trelegy possible CHF component continue scheduled bronchodilators, steroid wean O2 NSTEMI - demand ischemia trop trended flat/down Cardiology consulted - h/o cardiomyopathy Echo reported EF of 50-65% Afib, new onset Likely related to hypoxia. coreg switched to metoprolol s/p lopressor 5mg IV x3 overnight 4th dose of lopressor given late morning 07/23, patient converted to sinus Epistaxis secondary to anticoagulation and dry mucous membranes from oxygen afrin ordered, Anticoagulation discontinued. LEOBARDO, unknown baseline LEOBARDO resolved HTN - continue home meds h/o CHF/cardiomyopathy s/p gentle IVF echo with normal EF Repeat CXR today - mildmoderate CHF Continue IV Lasix VTE: SCD Code: Full Dispo: Home,~2-3 days wean O2, may need home O2 set up Time Spent Managing Pts Care (In Minutes): 37
[2022-07-25] MEDS: MONTELUKAST 10 MG TAB PO SCH (20:16)
[2022-07-26 03:48] LABS: Absolute Lymphocytes (CBC) 1.6 K/uL (0.7-4.9); Hematocrit 36.2 % (36.0-45.0); Lymphocytes % 14.8 % (15.3-44.8); MCV 92.2 fL (80-100); MPV 7.5 fL (7.6-11.3); RBC Red Blood Cell Count 3.92 M/uL (3.86-4.86)
[2022-07-26 04:09] LABS: Magnesium 2.6 mg/dL (1.8-2.4)
[2022-07-26] MEDS: PANTOPRAZOLE 40MG TABLET PO SCH (05:53)
[2022-07-26] MEDS: METOPROLOL TAR 50 MG TAB PO SCH ×2 (09:15→20:28)
[2022-07-26] MEDS: predniSONE 20 MG TAB PO SCH ×2 (09:15→17:29)
[2022-07-26] MEDS: Fluticasone/Umeclidin/Vilanter [Trelegy Ellipta 100-62.5-25] Blst.W.Dev IH SCH (09:16)
[2022-07-26] MEDS: FUROSEMIDE 40 MG/4 ML VIAL IV SCH (09:16)
[2022-07-26] MEDS: CETIRIZINE HCL 5 MG TABLET PO SCH (09:16)
--- NOTE | 2022-07-26 13:23 | P.PN ---
Subjective Date of Service: 07/26/22 Chief Complaint: COPD exacerbation, elevated troponin Patient has no more epistaxis. No major changes from yesterday. Patient still on Ventimask 50% Physical Examination - Vital Signs Temperature: 98.6 F Blood Pressure: 118/72 Pulse: 87 Respirations: 18 Pulse Ox (%): 95 - Studies Microbiology Data (last 24 hrs): 07/20/22 17:30 Blood - Blood Aerobic Blood Culture - Final No growth in 5 days. 07/20/22 17:30 Blood - Blood Anaerobic Blood Culture - Final No growth in 5 days. 07/20/22 17:15 Blood - Blood Aerobic Blood Culture - Final No growth in 5 days. 07/20/22 17:15 Blood - Blood Anaerobic Blood Culture - Final No growth in 5 days. Assessment And Plan - Plan Physical exam GEN: Alert, oriented, NAD HEENT: Normal conjunctiva, sclera anicteric, R nare with old/dried blood CV: Regular rate and rhythm, no edema Pulm: Nonlabored respirations on Venturi mask, diminished at bases bilaterally, ABD: Soft, nontender, nondistended Neuro: Normal speech, normal affect Problem List Acute on chronic COPD with exacerbation NSTEMI, demand ischemia Afib, new onset (resolved) LEOBARDO Epistaxis Hypertension Cardiomyopathy/CHF acute on chronic COPD exacerbation recently diagnosed with COPD a few days prior to admission CT with diffuse emphysematous changes Recently seen by pulmonology 2 days prior to admission, started on Trelegy possible CHF component continue scheduled bronchodilators, steroid wean O2 Intermittent IV Lasix NSTEMI - demand ischemia trop trended flat/down Cardiology consulted - h/o cardiomyopathy Echo reported EF of 50-65% Afib, new onset Likely related to hypoxia. coreg switched to metoprolol s/p lopressor 5mg IV x3 overnight 4th dose of lopressor given late morning 07/23, patient converted to sinus She has been in and out of A. fib. Epistaxis secondary to anticoagulation and dry mucous membranes from oxygen afrin ordered, Anticoagulation discontinued. Anterior nares bleeding site cauterized by ENT. LEOBARDO, unknown baseline LEOBARDO resolved HTN - continue home meds h/o CHF/cardiomyopathy s/p gentle IVF echo with normal EF Repeat CXR today - mildmoderate CHF On IV Lasix VTE: SCD Code: Full wean O2, may need home O2 set up Discharge to home once patient able to tolerate 4 L oxygen by nasal cannula. Time Spent Managing Pts Care (In Minutes): 29
[2022-07-26] MEDS: MONTELUKAST 10 MG TAB PO SCH (20:28)
--- NOTE | 2022-07-27 06:03 | EKG ---
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
[2022-07-27] MEDS: PANTOPRAZOLE 40MG TABLET PO SCH (07:20)
[2022-07-27] MEDS: FUROSEMIDE 40 MG/4 ML VIAL IV SCH (09:46)
[2022-07-27] MEDS: CETIRIZINE HCL 5 MG TABLET PO SCH (09:47)
[2022-07-27] MEDS: METOPROLOL TAR 50 MG TAB PO SCH ×2 (09:47→22:10)
[2022-07-27] MEDS: predniSONE 20 MG TAB PO SCH ×2 (09:47→16:30)
[2022-07-27] MEDS: Fluticasone/Umeclidin/Vilanter [Trelegy Ellipta 100-62.5-25] Blst.W.Dev IH SCH (09:47)
[2022-07-27] MEDS: SPIRONOLACTONE 25 MG TABLET PO SCH ×2 (12:08→22:09)
--- NOTE | 2022-07-27 13:01 | P.PN ---
Subjective Date of Service: 07/27/22 Chief Complaint: COPD exacerbation, elevated troponin Patient feels she is getting better. FiO2 weaned to 40% on Ventimask. Physical Examination - Vital Signs Temperature: 98.1 F Blood Pressure: 132/79 Pulse: 86 Respirations: 20 Pulse Ox (%): 92 Assessment And Plan - Plan Physical exam GEN: Alert, oriented, NAD HEENT: Normal conjunctiva, sclera anicteric, R nare with old/dried blood CV: Regular rate and rhythm, no edema Pulm: Nonlabored respirations on Venturi mask, diminished at bases bilaterally, ABD: Soft, nontender, nondistended Neuro: Normal speech, normal affect Problem List Acute on chronic COPD with exacerbation NSTEMI, demand ischemia Afib, new onset (resolved) LEOBARDO Epistaxis Hypertension Cardiomyopathy/CHF acute on chronic COPD exacerbation/acute respiratory failure with hypoxia recently diagnosed with COPD a few days prior to admission CT with diffuse emphysematous changes Recently seen by pulmonology 2 days prior to admission, started on Trelegy Possible vascular congestion contributing to her hypoxia continue scheduled bronchodilators, steroid. wean O2 Intermittent IV Lasix NSTEMI - demand ischemia trop trended flat/down Cardiology consulted - h/o cardiomyopathy Echo reported EF of 50-65% Afib, new onset Likely related to hypoxia. coreg switched to metoprolol s/p lopressor 5mg IV x3 overnight 4th dose of lopressor given late morning 07/23, patient converted to sinus She has been in and out of A. fib. Epistaxis secondary to anticoagulation and dry mucous membranes from oxygen afrin ordered, Anticoagulation discontinued. Anterior nares bleeding site cauterized by ENT. No more epistaxis. LEOBARDO, unknown baseline LEOBARDO resolved HTN - continue home meds h/o CHF/cardiomyopathy s/p gentle IVF echo with normal EF Repeat CXR today - mildmoderate CHF Transition IV Lasix to oral Lasix. VTE: SCD Code: Full wean O2, may need home O2 set up Discharge to home once patient able to tolerate 4 L oxygen by nasal cannula. Time Spent Managing Pts Care (In Minutes): 29
[2022-07-27] MEDS: MONTELUKAST 10 MG TAB PO SCH (22:10)
[2022-07-28 05:56] LABS: Potassium 3.6 mmol/L (3.5-5.1)
[2022-07-28] MEDS: PANTOPRAZOLE 40MG TABLET PO SCH (06:09)
[2022-07-28] MEDS: Fluticasone/Umeclidin/Vilanter [Trelegy Ellipta 100-62.5-25] Blst.W.Dev IH SCH (09:00)
[2022-07-28] MEDS: CETIRIZINE HCL 5 MG TABLET PO SCH (09:25)
[2022-07-28] MEDS: FUROSEMIDE 40 MG TABLET PO SCH (09:25)
[2022-07-28] MEDS: METOPROLOL TAR 50 MG TAB PO SCH ×2 (09:25→19:52)
[2022-07-28] MEDS: SPIRONOLACTONE 25 MG TABLET PO SCH ×2 (09:25→19:51)
[2022-07-28] MEDS: predniSONE 20 MG TAB PO SCH (09:26)
--- NOTE | 2022-07-28 12:11 | P.CNS ---
Date of Consult: 07/28/22 Reason for Consult: Respiratory failure Chief Complaint: COPD exacerbation, elevated troponin History of Present Illness: Patient is 66 years of age has had chronic dyspnea on mild exertion quit smoking a long time ago has been in respiratory distress came to the hospital still very short of breath CT scan consistent with some COPD changes Allergies codeine Allergy (Mild, Verified 07/23/22 16:33) Itching Home Medications: Ca/D3/Mag Ox/Zinc/Medical Radiation Tech/Nakul/Bor [Calcium +D & Minerals Chew Tab] 2 each PO DAILY 07/20/22 Cetirizine HCl [Zyrtec] 10 mg PO DAILY 07/20/22 Fluticasone/Umeclidin/Vilanter [Trelegy Ellipta 100-62.5-25] 1 each IH DAILY 07/20/22 Furosemide [Lasix] 40 mg PO DAILY 07/20/22 Guaifenesin [Mucinex] 1,200 mg PO BID 07/20/22 Montelukast [Singulair] 10 mg PO BEDTIME 07/20/22 Multivitamin [Multiple Vitamins] 1 each PO DAILY 07/20/22 Naproxen 1,000 mg PO BID 07/20/22 Omeprazole 20 mg PO DAILY 07/20/22 Spironolactone 25 mg PO DAILY 07/20/22 carvediloL [Carvedilol] 12.5 mg PO BID 07/20/22 - Past Medical/Surgical History Diabetic: No -: cardiomyopathy -: COPD -: Hypertension -: -: Wrist surgery Psychosocial/ Personal History: Patient lives at home with her daughter - Social History Alcohol use: No CD- Drugs: No Caffeine use: Yes Place of Residence: Home Review of Systems General: Weakness Respiratory: Shortness of Breath Physical Examination Temp Pulse Resp BP Pulse Ox 97.7 F 86 19 141/76 H 94 07/28/22 08:00 07/28/22 09:25 07/28/22 08:00 07/28/22 09:25 07/28/22 08:00 General: Alert, Oriented x3, Mild distress Respiratory: Clear to auscultation bilaterally, Diminished Cardiovascular: No edema, Regular rate/rhythm, Normal S1 S2 Gastrointestinal: Normal bowel sounds, Soft and benign - Problems (1) Respiratory failure Current Visit: Yes Status: Acute Plan: Patient is 66 years of age admitted with acute on chronic shortness of breath she has respiratory failure will qualify for home O2 suspects significant COPD echocardiogram was normal may have underlying diastolic dysfunction plan to titrate sat to 90% need bronchodilators at home low-dose steroids and and O2 ambulate possible discharge follow-up with me in 2 weeks labs chemistries reviewed Qualifiers: Chronicity: acute on chronic
--- NOTE | 2022-07-28 12:26 | P.PN ---
Subjective Date of Service: 07/28/22 Chief Complaint: COPD exacerbation, elevated troponin Patient feels she is getting better. She was weaned off Ventimask to oxygen by nasal cannula yesterday. She was tolerating 2 to 4 L of oxygen by nasal cannula yesterday but this morning patient has been requiring more oxygen and now on 10 L by nasal cannula. She reports intermittent cough. Physical Examination - Vital Signs Temperature: 97.7 F Blood Pressure: 141/76 Pulse: 86 Respirations: 19 Pulse Ox (%): 94 Assessment And Plan - Plan Physical exam GEN: Alert, oriented, NAD HEENT: Normal conjunctiva, sclera anicteric, R nare with old/dried blood CV: Regular rate and rhythm, no edema Pulm: Nonlabored respirations on Venturi mask, diminished at bases bilaterally, ABD: Soft, nontender, nondistended Neuro: Normal speech, normal affect Problem List Acute on chronic COPD with exacerbation NSTEMI, demand ischemia Afib, new onset (resolved) LEOBARDO Epistaxis Hypertension Cardiomyopathy/CHF acute on chronic COPD exacerbation/acute respiratory failure with hypoxia recently diagnosed with COPD a few days prior to admission CT with diffuse emphysematous changes Recently seen by pulmonology 2 days prior to admission, started on Trelegy Possible vascular congestion contributing to her hypoxia continue scheduled bronchodilators, steroid. wean O2 Oral Lasix maintenance NSTEMI - demand ischemia trop trended flat/down Cardiology consulted - h/o cardiomyopathy Echo reported EF of 50-65% Afib, new onset Likely related to hypoxia. coreg switched to metoprolol s/p lopressor 5mg IV x3 overnight 4th dose of lopressor given late morning 07/23, patient converted to sinus She has been in and out of A. fib. Heart rate currently controlled. Epistaxis secondary to anticoagulation and dry mucous membranes from oxygen afrin ordered, Anticoagulation discontinued. Anterior nares bleeding site cauterized by ENT. No more epistaxis. LEOBARDO, unknown baseline LEOBARDO resolved HTN - continue home meds h/o CHF/cardiomyopathy s/p gentle IVF echo with normal EF Repeat CXR today - mildmoderate CHF Continue oral Lasix. VTE: SCD Code: Full Social service assisting with arrangement for home oxygen. Discharge to home once patient able to tolerate 4 L oxygen by nasal cannula. Time Spent Managing Pts Care (In Minutes): 27
[2022-07-28] MEDS: predniSONE 10 MG TAB PO SCH (17:23)
[2022-07-28] MEDS: MONTELUKAST 10 MG TAB PO SCH (19:52)
[2022-07-29] MEDS: PANTOPRAZOLE 40MG TABLET PO SCH (06:16)
[2022-07-29] MEDS: METOPROLOL TAR 50 MG TAB PO SCH ×2 (08:03→20:27)
[2022-07-29] MEDS: CETIRIZINE HCL 5 MG TABLET PO SCH (08:03)
[2022-07-29] MEDS: predniSONE 10 MG TAB PO SCH ×2 (08:03→16:47)
[2022-07-29] MEDS: FUROSEMIDE 40 MG TABLET PO SCH (08:03)
[2022-07-29] MEDS: BENZONATATE 100 MG CAP PO PRN (08:03)
[2022-07-29] MEDS: SPIRONOLACTONE 25 MG TABLET PO SCH ×2 (08:04→20:28)
[2022-07-29] MEDS: Fluticasone/Umeclidin/Vilanter [Trelegy Ellipta 100-62.5-25] Blst.W.Dev IH SCH (08:05)
[2022-07-29] MEDS: OXYMETAZOLINE HCL 0.05% 15ML NAS SCH ×2 (11:30→20:29)
--- NOTE | 2022-07-29 11:43 | P.PN ---
Subjective Date of Service: 07/29/22 Chief Complaint: Respiratory failure Subjective: Improving (Subjectively feeling better although she is on high flow 100% nasal cannula oxygen and complaining that his airflow is too much and she is not able to tolerated) Review of Systems Respiratory: Shortness of Breath Physical Examination - Vital Signs Temperature: 97.9 F Blood Pressure: 124/61 Pulse: 67 Respirations: 20 Pulse Ox (%): 92 - Physical Exam General: Alert, In no apparent distress, Mild distress Respiratory: Clear to auscultation bilaterally, Diminished Cardiovascular: No edema, Regular rate/rhythm Assessment And Plan - Current Problems (Diagnosis) (1) Respiratory failure Current Visit: Yes Status: Acute Plan: P patient admitted with respiratory failure and to reduce the nasal flow oxygen and to practice pursed lip breathing ambulate possible discharge repeat chest x- ray patient complains of nasal congestion add Afrin nasal spray and Flonase Qualifiers: Chronicity: acute on chronic Discharge Plan: Home Plan to discharge in: 24 Hours
--- NOTE | 2022-07-29 13:08 | RAD REPORT ---
EXAM DESCRIPTION: RAD - Chest Single View - 07/29/2022 1:00 pm CLINICAL HISTORY: Respiratory failure COMPARISON: Chest Single View dated 07/24/2022; Chest Single View dated 07/23/2022; Chest Single Vie w dated 2Chest Single View dated 07/24/2022; Chest Single View dated 07/23/2022; Chest Singl e View dated 07/20/2022; Chest For Pe Angio dated 07/20/2022 FINDINGS: Lines: None. Lungs: Interstitial thickening and basilar opacities in the lung. This is slightly improved compared with 07/24/2022. Pleural: No significant pleural effusions or pneumothorax. Cardiac: Cardiomegaly. Mediastinum: Within normal limits. Bones: No acute fractures. Other: None IMPRESSION: Minimally improved aeration lungs compared with 07/24/2022. Findings could reflect eithe r mild edema with or without pneumonia in the lung bases.
--- NOTE | 2022-07-29 13:47 | P.PN ---
Subjective Date of Service: 07/29/22 Chief Complaint: Respiratory failure Patient feels she is getting better. She was weaned off Ventimask to oxygen by nasal cannula. Patient was complaining of increased flow of air through her nostrils and was keeping her oxygen close to her nostrils but not in them. She was on 7 L oxygen by nasal cannula which was later bumped up to high flow oxygen for this reason. She is also complaining of nasal stuffiness. Physical Examination - Vital Signs Temperature: 97.3 F Blood Pressure: 117/63 Pulse: 96 Respirations: 18 Pulse Ox (%): 92 Assessment And Plan - Plan Physical exam GEN: Alert, oriented, NAD HEENT: Normal conjunctiva, sclera anicteric, R nare with old/dried blood CV: Regular rate and rhythm, no edema Pulm: Nonlabored respirations on Venturi mask, diminished at bases bilaterally, ABD: Soft, nontender, nondistended Neuro: Normal speech, normal affect Problem List Acute on chronic COPD with exacerbation NSTEMI, demand ischemia Afib, new onset (resolved) LEOBARDO Epistaxis Hypertension Cardiomyopathy/CHF acute on chronic COPD exacerbation/acute respiratory failure with hypoxia recently diagnosed with COPD a few days prior to admission CT with diffuse emphysematous changes Recently seen by pulmonology 2 days prior to admission, started on Trelegy Possible vascular congestion contributing to her hypoxia continue scheduled bronchodilators, steroid. wean O2 to O2 by nasal cannula. Flonase and Afrin for nasal stuffiness Oral Lasix maintenance Pulmonary input appreciated. NSTEMI - demand ischemia trop trended flat/down Cardiology consulted - h/o cardiomyopathy Echo reported EF of 50-65% Afib, new onset Likely related to hypoxia. coreg switched to metoprolol s/p lopressor 5mg IV x3 overnight 4th dose of lopressor given late morning 07/23, patient converted to sinus She has been in and out of A. fib. Heart rate currently controlled on metoprolol 50 mg twice daily Epistaxis secondary to anticoagulation and dry mucous membranes from oxygen On afrin, Anticoagulation discontinued. Anterior nares bleeding site cauterized by ENT. No more epistaxis. LEOBARDO, unknown baseline LEOBARDO resolved HTN - continue home meds h/o CHF/cardiomyopathy s/p gentle IVF echo with normal EF Repeat CXR today - mildmoderate CHF Continue oral Lasix. VTE: SCD Code: Full Social service assisting with arrangement for home oxygen. Discharge to home once patient able to tolerate 4 L oxygen by nasal cannula. Time Spent Managing Pts Care (In Minutes): 27
[2022-07-29] MEDS: FLUTICASONE 50MCG NASAL SPRAY NAS SCH ×2 (16:47→20:27)
[2022-07-29] MEDS: MONTELUKAST 10 MG TAB PO SCH (20:28)
[2022-07-30 03:30] LABS: Absolute Lymphocytes (CBC) 1.3 K/uL (0.7-4.9); MCV 91.9 fL (80-100); MPV 7.3 fL (7.6-11.3); RBC Red Blood Cell Count 4.14 M/uL (3.86-4.86)
[2022-07-30 04:41] LABS: Blood Morphology Comment NOT SEEN (NOT SEEN); Platelet Estimate ADEQ
[2022-07-30] MEDS: PANTOPRAZOLE 40MG TABLET PO SCH (05:48)
[2022-07-30] MEDS: FUROSEMIDE 40 MG TABLET PO SCH (08:13)
[2022-07-30] MEDS: SPIRONOLACTONE 25 MG TABLET PO SCH (08:13)
[2022-07-30] MEDS: CETIRIZINE HCL 5 MG TABLET PO SCH (08:13)
[2022-07-30] MEDS: FLUTICASONE 50MCG NASAL SPRAY NAS SCH (08:14)
[2022-07-30] MEDS: OXYMETAZOLINE HCL 0.05% 15ML NAS SCH (08:14)
[2022-07-30] MEDS: predniSONE 10 MG TAB PO SCH (08:14)
[2022-07-30] MEDS: METOPROLOL TAR 50 MG TAB PO SCH (08:14)
[2022-07-30] MEDS: Fluticasone/Umeclidin/Vilanter [Trelegy Ellipta 100-62.5-25] Blst.W.Dev IH SCH (08:18)
[2022-07-30 10:33] VITALS: O2SAT 92
[2022-07-30 13:48] VITALS: BP 115/70; TEMP 98.4
--- NOTE | 2022-07-30 14:30 | P.DS ---
Admission Date: 07/20/22 Discharge Date: 07/30/22 Disposition: ROUTINE DISCHARGE Discharge Condition: FAIR Reason for Admission: Respiratory failure Brief History of Present Illness: 66-year-old female with history of hypertension, COPD, cardiomyopathy presented to the emergency department for shortness of breath. She reported increasing shortness of breath over the course of 1 month especially worse over the course last 5 days. She was seen by pulmonology 1 day prior and patient prescribed Carmen Soto for concern for possible pulmonary embolism and COPD exacerbation. She was previously taking prednisone 10 mg daily but felt as if this was not helping so she discontinued it. She was evaluated here in the emergency department and labs were significant for creatinine 1.51 GFR 38 high- sensitivity troponin 71.6 BNP 1488. CTA chest was performed to rule out pulmonary embolism which showed no evidence of pulmonary thromboembolism, prominent diffuse COPD present. No source of infection identified although SIRS criteria were present. Patient was admitted for further management. Hospital Course: Diagnosis Acute on chronic COPD with exacerbation NSTEMI, demand ischemia Afib, new onset (resolved) LEOBARDO Epistaxis Hypertension Cardiomyopathy/CHF Acute on chronic COPD exacerbation/acute respiratory failure with hypoxia Patient recently diagnosed with COPD a few days prior to admission CT with diffuse emphysematous changes Recently seen by pulmonology 2 days prior to admission, started on Trelegy Possible vascular congestion contributing to her hypoxia She was treated with scheduled bronchodilators, steroid. She initially required high flow oxygen and ventimask Later weaned to O2 by nasal cannula. Flonase and Afrin prescribed for nasal stuffiness She was treated with IV Lasix and later transitioned to oral Lasix Seen by pulmonary during this hospital stay. Patient clinically improved and currently tolerating 4 L oxygen by nasal. She is deemed stable for discharge. She is prescribed home meds and bronchodilators. NSTEMI - demand ischemia trop trended flat/down Cardiology consulted - h/o cardiomyopathy Echo reported EF of 50-65% No cardiac intervention per cardiology. Afib, new onset Likely related to hypoxia. coreg switched to metoprolol She has been in and out of A. fib. Heart rate currently controlled on metoprolol 50 mg twice daily Epistaxis secondary to anticoagulation and dry mucous membranes from oxygen On afrin, Anticoagulation was discontinued. Anterior nares bleeding site cauterized by ENT-Dr. Yanez No more epistaxis. LEOBARDO, unknown baseline LEOBARDO resolved HTN - continued home meds h/o CHF/cardiomyopathy s/p gentle IVF echo with normal EF She was treated with IV Lasix and later transitioned to oral Lasix. Vital Signs/Physical Exam: Temp Pulse Resp BP Pulse Ox 98.4 F 96 H 16 115/70 93 07/30/22 12:00 07/30/22 12:00 07/30/22 12:00 07/30/22 12:00 07/30/22 12:00 General: Alert, In no apparent distress, Oriented x3 HEENT: Mucous membr. moist/pink Neck: JVD not distended Respiratory: Diminished, Crackles/rales (Bilateral) Cardiovascular: No edema, Normal S1 S2, Irregular heart rate/rhythm Gastrointestinal: Normal bowel sounds, Soft and benign, Non-distended, No tenderness Musculoskeletal: No swelling Neurological: Normal strength at 5/5 x4 extr Laboratory Data at Discharge: WBC 9.90 K/uL (4.3-10.9) 07/30/22 03:06 Hgb 12.6 g/dL (12.0-15.0) 07/30/22 03:06 Hct 38.0 % (36.0-45.0) 07/30/22 03:06 Plt Count 231 K/uL (152-406) 07/30/22 03:06 PT 14.1 SECONDS (9.5-12.5) H 07/20/22 17:15 INR 1.28 07/20/22 17:15 Sodium 136 mmol/L (136-145) 07/30/22 03:06 Potassium 4.0 mmol/L (3.5-5.1) 07/30/22 03:06 BUN 32 mg/dL (7-18) H 07/30/22 03:06 Creatinine 1.05 mg/dL (0.55-1.3) 07/30/22 03:06 Glucose 108 mg/dL (74-106) H 07/30/22 03:06 Magnesium 2.5 mg/dL (1.8-2.4) H 07/27/22 03:10 Total Bilirubin 1.0 mg/dL (0.2-1.0) 07/25/22 03:12 AST 20 U/L (15-37) 07/25/22 03:12 ALT 21 U/L (12-78) 07/25/22 03:12 Alkaline Phosphatase 58 U/L (45-117) 07/25/22 03:12 Triglycerides 362 mg/dL (<150) H 07/21/22 05:50 Cholesterol 217 mg/dL (<200) H 07/21/22 05:50 HDL Cholesterol 26 mg/dL (40-60) L 07/21/22 05:50 Cholesterol/HDL Ratio 8.35 07/21/22 05:50 Home Medications: Ca/D3/Mag Ox/Zinc/Bond Runner/Nakul/Bor [Calcium 600-Vit D3-Min Chew Tb] 2 each PO DAILY 07/20/22 Montelukast [Singulair*] 10 mg PO BEDTIME 07/20/22 Multivitamin [Multiple Vitamins] 1 each PO DAILY 07/20/22 Omeprazole 20 mg PO DAILY 07/20/22 Fluticasone/Umeclidin/Vilanter [Trelegy Ellipta 200-62.5-25] 1 each IH DAILY #30 aero 07/28/22 Benzonatate [Tessalon Perle*] 100 mg PO TID PRN #30 cap 07/30/22 Cetirizine HCl [Zyrtec] 10 mg PO DAILY #30 tab 07/30/22 Fluticasone [Flonase 50MCG Nasal [place]*] 2 sprays ABHISHEK BID #1 btl 07/30/22 Furosemide [Lasix*] 40 mg PO DAILY #30 tab 07/30/22 Guaifen W/Codeine Syrup [ROBITUSSIN A-C Syrup*] 5 ml PO QID PRN #100 ml 07/30/22 Ipratropium Neb [Atrovent*] 0.5 mg NEB [id number] PRN #120 amp 07/30/22 Metoprolol Tartrate [Lopressor*] 50 mg PO BID #60 tab 07/30/22 Nebulizer 1 each NEB QID #1 unit 07/30/22 Oxymetazoline 0.05% [Afrin] 1 appl ABHISHEK BID 4 Days #1 btl 07/30/22 Spironolactone [Aldactone*] 25 mg PO BID #60 tab 07/30/22 predniSONE [Deltasone*] 10 mg PO BIDL #8 tab 07/30/22 New Medications: Ipratropium Neb [Atrovent*] 0.5 mg NEB [id number] PRN #120 amp PRN Reason: Shortness Of Breath Oxymetazoline 0.05% [Afrin] 1 appl ABHISHEK BID 4 Days #1 btl Spironolactone [Aldactone*] 25 mg PO BID #60 tab predniSONE [Deltasone*] 10 mg PO BIDL #8 tab Fluticasone [Flonase 50MCG Nasal [place]*] 2 sprays ABHISHEK BID #1 btl Furosemide [Lasix*] 40 mg PO DAILY #30 tab Metoprolol Tartrate [Lopressor*] 50 mg PO BID #60 tab Nebulizer 1 each NEB QID #1 unit Guaifen W/Codeine Syrup [ROBITUSSIN A-C Syrup*] 5 ml PO QID PRN #100 ml PRN Reason: Cough Benzonatate [Tessalon Perle*] 100 mg PO TID PRN #30 cap PRN Reason: Cough Fluticasone/Umeclidin/Vilanter [Trelegy Ellipta 200-62.5-25] 1 each IH DAILY #30 aero Cetirizine HCl [Zyrtec] 10 mg PO DAILY #30 tab Diet: AHA Activity: Ad jesus Followup: Todd Canchola MD [ACTIVE - CAN ADMIT] - 1-2 Weeks (Call for appointment.) Breann Rangel MD [Primary Care Provider] - 1-2 Weeks (Call for appointment.) Time spent managing pt's care (in minutes): 40
== END 2022-07-30 14:55 | disposition home or self-care (01) | DRG 190 ==
LOC: ER 15:45 → ERHOLD 18:55 → 2ND 20:26
PROVIDERS: ADMIT Hospitalist; ATTEND Internal Medicine
PROC: 5A09457 Assistance with Respiratory Ventilation, 24-96 Consecutive Hours, Continuous Positive Airway Pressure (ICD-10-PCS; principal; 2022-07-24)
PROC: 093K7ZZ Control Bleeding in Nasal Mucosa and Soft Tissue, Via Natural or Artificial Opening (ICD-10-PCS; 2022-07-25)
DX: J44.1 Chronic obstructive pulmonary disease with (acute) exacerbation (principal); I21.A1 Myocardial infarction type 2; I50.31 Acute diastolic (congestive) heart failure; J96.01 Acute respiratory failure with hypoxia; I42.9 Cardiomyopathy, unspecified; N17.9 Acute kidney failure, unspecified; D68.32 Hemorrhagic disorder due to extrinsic circulating anticoagulants; I48.91 Unspecified atrial fibrillation; I11.0 Hypertensive heart disease with heart failure; T45.515A Adverse effect of anticoagulants, initial encounter; R04.0 Epistaxis; Z88.5 Allergy status to narcotic agent; Z79.01 Long term (current) use of anticoagulants; Z79.52 Long term (current) use of systemic steroids; Z79.899 Other long term (current) drug therapy; Z20.822 Contact with and (suspected) exposure to COVID-19
CPT/HCPCS: 36415; 71045; 71275; 80048; 80053; 80061; 80076; 83605; 83735; 83880; 84439; 84443; 84484; 85025; 85027; 85610; 87040; 87070; 87205; 87804; 87811; 93005; 93306; 94002; 94003; 94010; 94640; 94760; 94762; 96365; 96375; 99285; J0171; J0456; J1100; J1940; J2001; J2543; J2920; J2930; J7030; J7050; J7512; J7614; Q9967

== ENCOUNTER 2022-08-12 12:14 | Inpatient (IN) | payer OTHER ==
--- OUTSIDE RECORDS SUMMARY | 2022-08-12 12:22 | XMS REPORT | Continuity of Care Document ---
:1955 Author Organization [facility] t Address [address] [place] [address] Care Team Providers Name Role Phone Breann Hou MD Primary Care Physician MARSHA_Minoo Attending Clinician Unavailable Breann Hou Attending Clinician [phone] Jael Pimentel MD Attending Clinician Sahil Kwon MD Attending Clinician Akua Jasso NP Attending Clinician Mary Mar MA Attending Clinician Unavailable MD JAEL PIMENTEL Attending Clinician Unavailable aubree Attending Clinician Unavailable MEEDMAR_JONAH Attending Clinician Unavailable MARSHA_Minoo Admitting Clinician Unavailable JAEL PIMENTEL Admitting Clinician Unavailable MD JAEL PIMENTEL Admitting Clinician Unavailable aubree Admitting Clinician Unavailable MARINA_JONAH Admitting Clinician Unavailable Payers Payer Name Policy Type Policy Number Effective Date Expiration Date [facility] - [id number] 2022 [facility] 00:00:00 (MEDICARE REPLACEMENT/ADVANTA GE - PPO) [facility] [id number] (MEDICARE REPLACEMENT/ADVANTA GE - PPO) Problems Condition Condition Condition Status Onset Resolution Last Treating Co mments Source Name Details Category Date Date Treatment Clinician Date Acute Acute Problem Active 2021-09 [facility] respirator Respirator 0-19 [facility] y distress y Distress 00:00: ty 00 [facility]ospita Clinics Vitamin Vitamin Problem Active [facility] B12 B12 8-04 [facility] deficiency 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 00 Hospita anemic) Anemic) l Clinics Multiple Multiple Problem Active [facility] joint pain Joint Pain 8-04 Co m[facility]i 00:00: ty 00 [facility] Dyspnea at Dyspnea at Problem Active [facility] rest Rest 8-04 Communi 00:00: ty 00 [facility] Gastroesop Gastroesop Problem Active S [facility] hageal hageal 6-14 [facility] reflux Reflux 00:00: ty disease Disease 00 [facility] Edema Edema Problem Active [facility] 6-14 [facility]i 00:00: ty 00 [facility] S/P ORIF S/P ORIF Disease Active 2020-09 [facility] di (open (open 2-01 st reduction reduction 00:00: [facility] internal internal 00 l fixation) fixation) left left distal distal radius radius fracture fracture Closed Closed Problem Active 2020-09 [place] fracture Fracture 1-17 Commun i of left of Left 00:00: ty wrist Wrist 00 [facility] Closed Closed Disease Active 2020-09 [facility] fracture fracture 1-17 st of distal of distal 00:00: [facility] end of end of 00 l left left radius, radius, initial initial encounter encounter Lesion of Lesion of Problem Active [facility] skin of Skin of 929 [facility] face Face 00:00: ty 00 [facility] Dysuria Dysuria Problem Active [facility] 9-29 [facility]i 00:00: ty 00 [facility] Acute Acute Problem Active [facility] sinusitis Sinusitis 4-27 Comm uni 00:00: ty 00 [facility] Acute Acute Problem Active [facility] sciatica Sciatica 6-24 Commun i 00:00: ty 00 [facility] Hyperlipid Hyperlipid Problem Active S wemargy emia emia 6- Communi 00:00: ty 00 [facility] Cardiomyop Cardiomyop Problem Active S wemargy athy athy 6- Communi 00:00: ty 00 [facility] Acute Acute Problem Active 2017-09 [place] maxillary Maxillary 1-28 Comm uni sinusitis Sinusitis 00:00: ty 00 [facility] Asthmatic Asthmatic Problem Active 2017-09 [facility] bronchitis Bronchitis 1-28 Co mmuni 00:00: ty 00 Hospita l Clinics Bronchitis Bronchitis Problem Active [facility] 9-20 [facility]i 00:00: ty Hospita l Clinics Malaise Malaise Problem Active [facility] 9 Communi 00:00: ty Hospita l Clinics Onychomyco Onychomyco Problem Active [facility] sis sis 12-18 Communi 00:00: ty Hospita l Clinics Seasonal Seasonal Problem Active [facility] allergic Allergic 12-18 Commun i rhinitis Rhinitis 00:00: ty Hospita l Clinics Abrasion Abrasion Problem Active [facility] 12-18 [facility] 00:00: ty 00 [facility]ospita l Clinics Fall Fall Problem Active [facility] 12-18 [facility]i 00:00: ty Hospita l Clinics [...] l s to drug Codeine Allergy Active [facility] to Communi substanc ty e Hospita l Clinics Social History Social Habit Start Date Stop Date Quantity Comments Source Alcohol intake 2021-09-21 2021-09-21 Current drinker [facility] dist 00:00:00 00:00:00 of alcohol Hospital (finding) Tobacco use and 2021-08-10 2021-08-10 Smokeless tobacco [facility] exposure 00:00:00 00:00:00 non-user Hospital Cigarettes smoked 2021-08-10 2021-08-[address] current (pack per 00:00:00 00:00:00 Hospita l day) - Reported Cigarette 2021-08-10 2021-08-10 [facility] pack-years 00:00:00 00:00:00 Hospital History of tobacco 2005-06-28 Cigarette Smoker [facility] use 00:00:00 Hospital Sex Ass[birth year] At [birth year] [facility] 00:00:00 00:00:00 Hospital Smoking Status Start Date Stop Date Source Never Smoker [facility] Ex-smoker 2021-08-10 00:00:00 2021-08-10 00:00:00 [facility] Medications Ordered Filled Start Stop Current Ordering Indication Dosage Frequency Signature Comments Components Source Medication Medication Date Date Medication? Clinician (SIG) Name Name Marcinalog 40 Marcinalog 40 2021-09 No Kenalog 40 [facility] mg/mL mg/mL 0-05 mg/mL Communi suspension suspension 10:45: suspension ty for for 03 for Hospita injectionTa injectionTa injectionT l ke 2 mL by ke 2 mL by brenda 2 mL [facility] injection injection by route. route. injection route. Kenalog 40 Kenalog 40 2021-09 No Kenalog 40 [facility] mg/mL mg/mL 0-05 mg/mL Communi suspension suspension 10:45: suspension ty for for 03 for Hospita injectionTa injectionTa injectionT l ke 2 mL by ke 2 mL by brenda 2 mL [facility] injection injection by route. route. injection route. Kenalog 40 Kenalog 40 No Kenalog 40 [facility] mg/mL mg/mL 8-11 mg/mL Communi suspension suspension 12:04: suspension ty for for 06 for Hospita injectionTa injectionTa injectionT l ke 2 mL by ke 2 mL by brenda 2 mL [facility] injection injection by route. route. injection route. cyanocobala cyanocobala No cyanocobal [facility] min (vit min (vit 7-06 josue (vit Co mmuni B-12) 1,000 B-12) 1,000 10:28: B-12) ty mcg/mL mcg/mL 07 1,000 Hospita injection injection mcg/mL l solutionInj solutionInj injection Clinics ect 1 mL ect 1 mL solutionIn every month every month ject 1 mL by by every subcutaneou subcutaneou month by s route. s route. subcutaneo us route. cyanocobala cyanocobala No cyanocobal [facility] min (vit min (vit 6-16 josue (vit Co mmuni B-12) 1,000 B-12) 1,000 13:43: B-12) ty mcg/mL mcg/mL 49 1,000 Hospita injection injection mcg/mL l solutionInj solutionInj injection Clinics ect 1 mL ect 1 mL solutionIn every month every month ject 1 mL by by every subcutaneou subcutaneou month by s route. s route. subcutaneo us route. cyanocobala cyanocobala No cyanocobal [facility] min (vit min (vit 5-31 josue (vit Co mmuni B-12) 1,000 B-12) 1,000 09:14: B-12) ty mcg/mL mcg/mL 30 1,000 Hospita injection injection mcg/mL l solutionInj solutionInj injection Clinics ect 1 mL ect 1 mL solutionIn every month every month ject 1 mL by by every subcutaneou subcutaneou month by s route. s route. subcutaneo us route. ceftriaxone ceftriaxone No ceftriaxon [facility] 1 gram 1 gram 2-15 e 1 gram Communi solution solution 14:26: solution t y for for 42 for Hospita injectionTa injectionTa injectionT l ke 1 g by ke 1 g by brenda 1 g by Clinics injection injection injection route. route. route. Kenalog 40 Kenalog 40 No Kenalog 40 [facility] mg/mL mg/mL 2-15 mg/mL Communi suspension suspension [...] 2-[address] 10:38: Hospita 12 l furosemide 2020-09 Yes 20mg Q24H Take 20 [...] mouth. st 10:38: Hospita 12 l HYDROcodone 2020-09 No 1{tbl} Q6H Take 1 [facility] -acetaminop 1-19 11-[address] [facility] ([facility]) 00:00: 05:59 mouth [facility] 5-325 mg 00 :00 every 6 l per tablet (six) hours as needed for moderate pain for up to 7 days .acute pain. Max Daily Amount: 4 tablets HYDROcodone 2020-0928 1{tbl} Q6H Take 1 [facility] -acetaminop 1-19 11-[address] [facility] ([facility]) 00:00: 05:59 mouth [facility] 5-325 mg 00 :00 every 6 l per tablet (six) hours as needed for moderate pain for up to 7 days .acute pain. Max Daily Amount: 4 tablets traMADoL 2020-09 50mg Q6H Take 1 [facility] di (ULTRAM) 50 1-17 11-25 tablet (50 s t mg tablet 00:00: 05:59 mg total) Ho spita 00 :00 by mouth l every 6 (six) hours as needed for severe pain for up to 7 days .acute pain. traMADoL 2020-09 50mg Q6H Take 1 [facility] di (ULTRAM) [...] (two) Hospita 00 times a l day. montelukast 2020-09 Yes 10mg QD Take 10 mg [facility] (SINGULAIR) 0-[address] 10 mg 00:00: every Hospita tablet 00 morning. l carvediloL 2020-09 Yes 25mg Q.5D Take 25 mg M [facility] (COREG) 25 0-[address] MG tablet 00:00: (two) Hospita 00 times a l day. Kenalog 40 Kenalog 40 0 No Kenalog 40 [facility] mg/mL mg/mL 9-29 mg/mL Communi suspension suspension 16:37: suspension ty for for 00 for Hospita injectionTa injectionTa injectionT l ke 2 mL by ke 2 mL by brenda 2 mL Clinics injection injection by route. route. injection route. omeprazole 0 Yes 10mg Q.5D Take 10 mg M [facility] (PriLOSEC) 9-[address] 10 MG 00:00: (two) Hospita capsule 00 times a l day. omeprazole 0 Yes 10mg Q.5D Take 10 mg M [facility] (PriLOSEC) 9-[address] 10 MG 00:00: (two) Hospita capsule 00 times a l day. spironolact 0 Yes 25mg QD Take 25 mg [facility] one -[address] (ALDACTONE) 00:00: daily. [facility] 25 MG 00 l tablet spironolact 0 Yes 25mg QD Take 25 mg [facility] one - by mouth st (ALDACTONE) 00:00: daily. [facility] 25 MG 00 l tablet Kenalog 40 Kenalog 40 No Kenalog 40 [facility] mg/mL mg/mL 4-27 mg/mL Communi suspension suspension 14:55: suspension ty for for 36 for Hospita injectionIM injectionIM injectionI l one time one time M one time C linics B12 B12 2020-0 No B12 [place] 4-27 Communi 00:00: ty 00 Hospita l Clinics B12 B12 2020-0 No B12 [place] 4-27 Communi 00:00: ty 00 Hospita l Clinics B12 B12 2020-0 No B12 [place] 4-27 Communi 00:00: ty 00 Hospita l Clinics B12 B12 2021-0 No B12 [place] 427 Communi 00:00: ty 00 Hospita l Clinics B12 B12 2021-0 No B12 [place] 4 Communi 00:00: ty 00 Hospita l Clinics B12 B12 2021-0 No B12 [place] 427 Communi 00:00: ty 00 Hospita l Clinics B12 B12 2021-0 No B12 [place] 4-27 Communi 00:00: ty 00 Hospita l Clinics B12 B12 2021-0 No B12 [place] 4-27 Communi 00:00: ty 00 Hospita l Clinics B12 B12 2021-0 No B12 [place] 4 Communi 00:00: ty 00 Hospita l Clinics B12 B12 2021-0 No B12 [place] 4 Communi 00:00: ty 00 Hospita l Clinics B12 B12 2021-0 No B12 [place] 4 Communi 00:00: ty 00 Hospita l Clinics B12 B12 2021-0 No B12 [place] 4 Communi 00:00: ty 00 Hospita l Clinics B12 B12 2021-0 No B12 [place] 4 Communi 00:00: ty 00 Hospita l Clinics B12 B12 2021-0 No B12 [place] 4 Communi 00:00: ty 00 Hospita l Clinics amoxicillin amoxicillin No 1 Q12H amoxicilli [facility] [phone] n 875 Communi mg-potassiu mg-potassiu mg-potassi ty m m um Hospita clavulanate clavulanate clavulanat l 125 mg 125 mg e 125 mg Clinics tablet Take tablet Take tablet 1 tablet 1 tablet Take 1 every 12 every 12 tablet hours by hours by every 12 oral route. oral route. hours by oral route. atorvastati atorvastati No atorvastat [facility] n 20 mg n 20 mg in 20 mg [facility] ni tablet TAKE tablet TAKE tablet ty ONE (1) ONE (1) TAKE ONE Hospi ta TABLET(S) TABLET(S) (1) l BY MOUTH BY MOUTH TABLET(S) Cl inics ONCE A DAY. ONCE A DAY. BY MOUTH ONCE A DAY. biotin otc biotin otc No biotin otc [facility] 10,000 10,000 10,000 Communi daily. daily. daily. ty [facility] Calcium 600 Calcium 600 No Calcium [facility] daily daily 600 daily Communi ty [facility] carvedilol carvedilol No carvedilol [facility] 25 mg 25 mg 25 mg Communi tablet TAKE tablet TAKE tablet ty ONE (1) ONE (1) TAKE ONE Hospi ta TABLET(S) TABLET(S) (1) l BY MOUTH BY MOUTH TABLET(S) Cl inics TWICE A TWICE A BY MOUTH DAY. DAY. TWICE A DAY. furosemide furosemide No furosemide [facility] 80 mg 80 mg 80 mg Communi tablet TAKE tablet TAKE tablet ty ONE (1) ONE (1) TAKE ONE Hospi ta TABLET(S) TABLET(S) (1) l BY MOUTH BY MOUTH TABLET(S) Cl inics ONCE A DAY. ONCE A DAY. BY MOUTH ONCE A DAY. hydrocodone hydrocodone No hydrocodon [facility] 5 5 e 5 Communi mg-acetamin mg-acetamin [...] DAY. losartan 50 losartan 50 No losartan [facility] mg tablet mg tablet 50 mg Comm uni TAKE ONE TAKE ONE tablet ty (1) (1) TAKE ONE Hospita TABLET(S) TABLET(S) (1) l BY MOUTH BY MOUTH TABLET(S) Cl inics ONCE A DAY. ONCE A DAY. BY MOUTH ONCE A DAY. meloxicam meloxicam No meloxicam [facility] 7.5 mg 7.5 mg 7.5 mg Communi tablet TAKE tablet TAKE tablet ty ONE (1) ONE (1) TAKE ONE Hospi ta TABLET(S) TABLET(S) (1) l BY MOUTH BY MOUTH TABLET(S) Cl inics ONCE A DAY. ONCE A DAY. BY MOUTH ONCE A DAY. montelukast montelukast No montelukas [facility] 10 mg 10 mg t 10 mg Communi tablet TAKE tablet TAKE tablet ty ONE (1) ONE (1) TAKE ONE Hospi ta TABLET(S) TABLET(S) (1) l BY MOUTH BY MOUTH TABLET(S) Cl inics EVERY EVERY BY MOUTH MORNING. MORNING. EVERY MORNING. Mucinex Mucinex No Mucinex [facility] Communi ty [facility] naproxen naproxen No naproxen [facility] 500 mg 500 mg 500 mg Communi tablet TAKE tablet TAKE tablet ty ONE (1) ONE (1) TAKE ONE Hospi ta TABLET(S) TABLET(S) (1) l BY MOUTH BY MOUTH TABLET(S) Cl inics TWICE A DAY TWICE A DAY BY MOUTH WITH MEALS. WITH MEALS. TWICE A DAY WITH MEALS. omeprazole omeprazole No omeprazole [facility] 20 mg 20 mg 20 mg Communi capsule,del capsule,del capsule,de ty ayed ayed layed Hospita release release release l TAKE ONE TAKE ONE TAKE ONE Cli nics (1) (1) (1) CAPSULE(S) CAPSULE(S) CAPSULE(S) BY MOUTH BY MOUTH BY MOUTH ONCE A DAY. ONCE A DAY. ONCE A DAY. One A Day One A Day No One A Day [facility] Vitamin Vitamin Vitamin Commun i Daily Daily Daily ty [facility] Probiotic Probiotic No Probiotic [place] Communi ty [facility] spironolact spironolact No spironolac [place] one 25 mg one 25 mg tone 25 mg Communi tablet TAKE tablet TAKE tablet ty ONE (1) ONE (1) TAKE ONE Hospi ta TABLET(S) TABLET(S) (1) l BY MOUTH BY MOUTH TABLET(S) Cl inics ONCE A DAY. ONCE A DAY. BY MOUTH ONCE A DAY. tramadol 50 tramadol 50 No tramadol [facility] mg tablet mg tablet 50 mg Comm uni TAKE ONE TAKE ONE tablet ty (1) (1) TAKE ONE Hospita TABLET(S) TABLET(S) (1) l BY MOUTH BY MOUTH TABLET(S) Cl inics EVERY SIX EVERY SIX BY MOUTH HOURS HOURS EVERY SIX NEEDED FOR NEEDED FOR HOURS SEVERE SEVERE NEEDED FOR PAIN. PAIN. SEVERE PAIN. turmeric turmeric No turmeric [facility] Communi ty [facility] Tylenol 325 Tylenol 325 No 2 Q6H Tylenol [facility] mg tablet mg tablet 325 mg Com clarke Take 2 Take 2 tablet ty tablets tablets Take 2 Hospita every 6 every 6 tablets l hours by hours by every 6 Clin ics oral route oral route hours by as needed. as needed. oral route as needed. Vitamin D3 Vitamin D3 No Vitamin D3 [facility] 5000 iu 5000 iu 5000 iu Commun i daily daily daily ty [facility] Zyrtec Zyrtec No Zyrtec [facility] Communi ty [facility] amoxicillin amoxicillin No 1 Q12H amoxicilli [facility] 875 875 n 875 Communi mg-potassiu mg-potassiu mg-potassi ty m m [facility] clavulanate clavulanate clavulanat l 125 mg 125 mg e 125 mg Clinics tablet Take tablet Take tablet 1 tablet 1 tablet Take 1 every 12 every 12 tablet hours by hours by every 12 oral route. oral route. hours by oral route. atorvastati atorvastati No atorvastat [place] n 20 mg n 20 mg in 20 mg Com[facility] ni tablet TAKE tablet TAKE tablet ty ONE (1) ONE (1) TAKE ONE Hospi ta TABLET(S) TABLET(S) (1) l BY MOUTH BY MOUTH TABLET(S) Cl inics ONCE A DAY. ONCE A DAY. BY MOUTH ONCE A DAY. biotin otc biotin otc No biotin otc [facility] 10,000 10,000 10,000 Communi daily. daily. daily. [facility] Calcium 600 Calcium 600 No Calcium [facility] daily daily 600 daily Communi [facility] carvedilol carvedilol No carvedilol [facility] 25 mg 25 mg 25 mg Communi tablet TAKE tablet TAKE tablet ty ONE (1) ONE (1) TAKE ONE Hospi ta TABLET(S) TABLET(S) (1) l BY MOUTH BY MOUTH TABLET(S) Cl inics TWICE A TWICE A BY MOUTH DAY. DAY. TWICE A DAY. furosemide furosemide No furosemide [facility] 80 mg 80 mg 80 mg Communi tablet TAKE tablet TAKE tablet ty ONE (1) ONE (1) TAKE ONE Hospi ta TABLET(S) TABLET(S) (1) l BY MOUTH BY MOUTH TABLET(S) Cl inics ONCE A DAY. ONCE A DAY. BY MOUTH ONCE A DAY. hydrocodone hydrocodone No hydrocodon [facility] 5 5 e 5 Communi mg-acetamin mg-acetamin [...] 40 Kenalog 40 No 2mL Kenalog 40 [facility] mg/mL mg/mL mg/mL Communi suspension suspension suspension ty for for for Hospita injection injection injection l Take 2 mL Take 2 mL Take 2 mL Clinics by by by injection injection injection route. route. route. losartan 50 losartan 50 No losartan [facility] mg tablet mg tablet 50 mg Comm uni TAKE ONE TAKE ONE tablet ty (1) (1) TAKE ONE Hospita TABLET(S) TABLET(S) (1) l BY MOUTH BY MOUTH TABLET(S) Cl inics ONCE A DAY. ONCE A DAY. BY MOUTH ONCE A DAY. meloxicam meloxicam No meloxicam [facility] 7.5 mg 7.5 mg 7.5 mg Communi tablet TAKE tablet TAKE tablet ty ONE (1) ONE (1) TAKE ONE Hospi ta TABLET(S) TABLET(S) (1) l BY MOUTH BY MOUTH TABLET(S) Cl inics ONCE A DAY. ONCE A DAY. BY MOUTH ONCE A DAY. montelukast montelukast No montelukas [facility] 10 mg 10 mg t 10 mg Communi tablet TAKE tablet TAKE tablet ty ONE (1) ONE (1) TAKE ONE Hospi ta TABLET(S) TABLET(S) (1) l BY MOUTH BY MOUTH TABLET(S) Cl inics EVERY EVERY BY MOUTH MORNING. MORNING. EVERY MORNING. Mucinex Mucinex No Mucinex [place] Communi ty Hospita l Clinics naproxen naproxen [...] DAY WITH MEALS. omeprazole omeprazole No omeprazole [facility] 20 mg 20 mg 20 mg Communi capsule,del capsule,del capsule,de ty ayed ayed layed Hospita release release release l TAKE ONE TAKE ONE TAKE ONE Cli nics (1) (1) (1) CAPSULE(S) CAPSULE(S) CAPSULE(S) BY MOUTH BY MOUTH BY MOUTH ONCE A DAY. ONCE A DAY. ONCE A DAY. One A Day One A Day No One A Day [facility] Vitamin Vitamin Vitamin Commun i Daily Daily Daily ty [facility] Probiotic Probiotic No Probiotic [place] Communi ty [facility] spironolact spironolact No spironolac [place] one 25 mg one 25 mg tone 25 mg Communi tablet TAKE tablet TAKE tablet ty ONE (1) ONE (1) TAKE ONE Hospi ta TABLET(S) TABLET(S) (1) l BY MOUTH BY MOUTH TABLET(S) Cl inics ONCE A DAY. ONCE A DAY. BY MOUTH ONCE A DAY. tramadol 50 tramadol 50 No tramadol [facility] mg tablet mg tablet 50 mg Comm uni TAKE ONE TAKE ONE tablet ty (1) (1) TAKE ONE Hospita TABLET(S) TABLET(S) (1) l BY MOUTH BY MOUTH TABLET(S) Cl inics EVERY SIX EVERY SIX BY MOUTH HOURS HOURS EVERY SIX NEEDED FOR NEEDED FOR HOURS SEVERE SEVERE NEEDED FOR PAIN. PAIN. SEVERE PAIN. turmeric turmeric No turmeric [facility] Communi [facility] Tylenol 325 Tylenol 325 No 2 Q6H Tylenol [facility] mg tablet mg tablet 325 mg Com clarke Take 2 Take 2 tablet ty tablets tablets Take 2 Hospita every 6 every 6 tablets l hours by hours by every 6 Clin ics oral route oral route hours by as needed. as needed. oral route as needed. Vitamin D3 Vitamin D3 No Vitamin D3 [facility] 5000 iu 5000 iu 5000 iu Commun i daily daily daily ty [facility] Zyrtec Zyrtec No Zyrtec [facility]i [facility] atorvastati atorvastati No atorvastat [place] n 20 mg n 20 mg in 20 mg Commu ni tablet TAKE tablet TAKE tablet ty ONE (1) ONE (1) TAKE ONE Hospi ta TABLET(S) TABLET(S) (1) l BY MOUTH BY MOUTH TABLET(S) Cl inics ONCE A DAY. ONCE A DAY. BY MOUTH ONCE A DAY. Augmentin Augmentin No 1 Q12H Augmentin [facility] 875 mg-125 875 mg-125 875 mg-125 Communi mg tablet mg tablet mg tablet ty Take 1 Take 1 Take 1 Hospita tablet tablet tablet l every 12 every 12 every 12 Cli nics hours by hours by hours by oral route. oral route. oral route. Calcium 600 Calcium 600 No Calcium [facility] daily daily 600 daily Communi ty [facility] carvedilol carvedilol No carvedilol [facility] 25 mg 25 mg 25 mg Communi tablet TAKE tablet TAKE tablet ty ONE (1) ONE (1) TAKE ONE Hospi ta TABLET(S) TABLET(S) (1) l BY MOUTH BY MOUTH TABLET(S) Cl inics TWICE A TWICE A BY MOUTH DAY. DAY. TWICE A DAY. furosemide furosemide No furosemide [facility] 80 mg 80 mg 80 mg Communi tablet TAKE tablet TAKE tablet ty ONE (1) ONE (1) TAKE ONE Hospi ta TABLET(S) TABLET(S) (1) l BY MOUTH BY MOUTH TABLET(S) Cl inics ONCE A DAY. ONCE A DAY. BY MOUTH ONCE A DAY. losartan 50 losartan 50 No losartan [facility] mg tablet mg tablet 50 mg Comm uni TAKE ONE TAKE ONE tablet ty (1) (1) TAKE ONE Hospita TABLET(S) TABLET(S) (1) l BY MOUTH BY MOUTH TABLET(S) Cl inics ONCE A DAY. ONCE A DAY. BY MOUTH ONCE A DAY. montelukast montelukast No montelukas [facility] 10 mg 10 mg t 10 mg Communi tablet TAKE tablet TAKE tablet ty ONE (1) ONE (1) TAKE ONE Hospi ta TABLET(S) TABLET(S) (1) l BY MOUTH BY MOUTH TABLET(S) Cl inics EVERY EVERY BY MOUTH MORNING. MORNING. EVERY MORNING. Mucinex Mucinex No Mucinex [facility] Communi ty [facility] naproxen naproxen No naproxen [facility] 500 mg 500 mg 500 mg Communi tablet TAKE tablet TAKE tablet ty ONE (1) ONE (1) TAKE ONE Hospi ta TABLET(S) TABLET(S) (1) l BY MOUTH BY MOUTH TABLET(S) Cl inics TWICE A DAY TWICE A DAY BY MOUTH WITH MEALS. WITH MEALS. TWICE A DAY WITH MEALS. omeprazole omeprazole No omeprazole [facility] 10 mg 10 mg 10 mg Communi capsule,del capsule,del capsule,de ty ayed ayed layed Hospita release release release l TAKE ONE TAKE ONE TAKE ONE Cli nics (1) (1) (1) CAPSULE(S) CAPSULE(S) CAPSULE(S) BY MOUTH BY MOUTH BY MOUTH TWICE A TWICE A TWICE A DAY. DAY. DAY. One A Day One A Day No One A Day [facility] Vitamin Vitamin Vitamin Commun i Daily Daily Daily [facility] Probiotic Probiotic No Probiotic [facility]i [facility] spironolact spironolact No spironolac [place] one 25 mg one 25 mg tone 25 mg Communi tablet TAKE tablet TAKE tablet ty ONE (1) ONE (1) TAKE ONE Hospi ta TABLET(S) TABLET(S) (1) l BY MOUTH BY MOUTH TABLET(S) Cl inics ONCE A DAY. ONCE A DAY. BY MOUTH ONCE A DAY. turmeric turmeric No turmeric Swe marg[facility] Communi [facility] Tylenol 325 Tylenol 325 No 2 Q6H Tylenol [facility] mg tablet mg tablet 325 mg Com clarke Take 2 Take 2 tablet ty tablets tablets Take 2 Hospita every 6 every 6 tablets l hours by hours by every 6 Clin ics oral route oral route hours by as needed. as needed. oral route as needed. Vitamin D3 Vitamin D3 No Vitamin D3 [facility] 5000 iu 5000 iu 5000 iu Commun i daily daily daily ty [facility] Zyrtec Zyrtec No Zyrtec [facility]i [facility] atorvastati atorvastati No atorvastat [place] n 20 mg n 20 mg in 20 mg Commu ni tablet TAKE tablet TAKE tablet ty ONE (1) ONE (1) TAKE ONE Hospi ta TABLET(S) TABLET(S) (1) l BY MOUTH BY MOUTH TABLET(S) Cl inics ONCE A DAY. ONCE A DAY. BY MOUTH ONCE A DAY. Augmentin Augmentin No 1 Q12H Augmentin [facility] 875 mg-125 875 mg-125 875 mg-125 Communi mg tablet mg tablet mg tablet ty Take 1 Take 1 Take 1 Hospita tablet tablet tablet l every 12 every 12 every 12 Cli nics hours by hours by hours by oral route. oral route. oral route. Calcium 600 Calcium 600 No Calcium [facility] daily daily 600 daily Communi ty [facility] carvedilol carvedilol No carvedilol [facility] 25 mg 25 mg 25 mg Communi tablet TAKE tablet TAKE tablet ty ONE (1) ONE (1) TAKE ONE Hospi ta TABLET(S) TABLET(S) (1) l BY MOUTH BY MOUTH TABLET(S) Cl inics TWICE A TWICE A BY MOUTH DAY. DAY. TWICE A DAY. furosemide furosemide No furosemide [facility] 80 mg 80 mg 80 mg Communi tablet TAKE tablet TAKE tablet ty ONE (1) ONE (1) TAKE ONE Hospi ta TABLET(S) TABLET(S) (1) l BY MOUTH BY MOUTH TABLET(S) Cl inics ONCE A DAY. ONCE A DAY. BY MOUTH ONCE A DAY. Kenalog 40 Kenalog 40 No Kenalog 40 [facility] mg/mL mg/mL mg/mL Communi suspension suspension suspension ty for for for Hospita injection injection injection l IM one time IM one time IM one Clinics time losartan 50 losartan 50 No losartan [facility] mg tablet mg tablet 50 mg Comm uni TAKE ONE TAKE ONE tablet ty (1) (1) TAKE ONE Hospita TABLET(S) TABLET(S) (1) l BY MOUTH BY MOUTH TABLET(S) Cl inics ONCE A DAY. ONCE A DAY. BY MOUTH ONCE A DAY. montelukast montelukast No montelukas [facility] 10 mg 10 mg t 10 mg Communi tablet TAKE tablet TAKE tablet ty ONE (1) ONE (1) TAKE ONE Hospi ta TABLET(S) TABLET(S) (1) l BY MOUTH BY MOUTH TABLET(S) Cl inics EVERY EVERY BY MOUTH MORNING. MORNING. EVERY MORNING. Mucinex Mucinex No Mucinex [place] [facility] naproxen naproxen No naproxen Swe margy 500 mg 500 mg 500 mg Communi tablet TAKE tablet TAKE tablet ty ONE (1) ONE (1) TAKE ONE Hospi ta TABLET(S) TABLET(S) (1) l BY MOUTH BY MOUTH TABLET(S) Cl inics TWICE A DAY TWICE A DAY BY MOUTH WITH MEALS. WITH MEALS. TWICE A DAY WITH MEALS. omeprazole omeprazole No omeprazole [place] 10 mg 10 mg 10 mg Communi capsule,del capsule,del capsule,de ty ayed ayed layed Hospita release release release l TAKE ONE TAKE ONE TAKE ONE Cli nics (1) (1) (1) CAPSULE(S) CAPSULE(S) CAPSULE(S) BY MOUTH BY MOUTH BY MOUTH TWICE A TWICE A TWICE A DAY. DAY. DAY. One A Day One A Day No One A Day [place] Vitamin Vitamin Vitamin Commun i Daily Daily Daily [facility] Probiotic Probiotic No Probiotic [place] [facility] spironolact spironolact No spironolac [place] one 25 mg one 25 mg tone 25 mg Communi tablet TAKE tablet TAKE tablet ty ONE (1) ONE (1) TAKE ONE Hospi ta TABLET(S) TABLET(S) (1) l BY MOUTH BY MOUTH TABLET(S) Cl inics ONCE A DAY. ONCE A DAY. BY MOUTH ONCE A DAY. turmeric turmeric No turmeric Swe margy Communi [facility] Tylenol 325 Tylenol 325 No 2 Q6H Tylenol [place] mg tablet mg tablet 325 mg Com clarke Take 2 Take 2 tablet ty tablets tablets Take 2 Hospita every 6 every 6 tablets l hours by hours by every 6 Clin ics oral route oral route hours by as needed. as needed. oral route as needed. Vitamin D3 Vitamin D3 No Vitamin D3 [place] 5000 iu 5000 iu 5000 iu Commun i daily daily daily ty [facility] Zyrtec Zyrtec No Zyrtec [place] [facility] ty [facility] amoxicillin amoxicillin No amoxicilli [place] [phone] n 875 Communi mg-potassiu mg-potassiu mg-potassi ty m m um Hospita clavulanate clavulanate clavulanat l 125 mg 125 mg e 125 mg Clinics tablet TAKE tablet TAKE tablet ONE (1) ONE (1) TAKE ONE TABLET(S) TABLET(S) (1) BY MOUTH BY MOUTH TABLET(S) EVERY EVERY BY MOUTH TWELVE TWELVE EVERY HOURS FOR HOURS FOR TWELVE 10 DAYS. 10 DAYS. HOURS FOR 10 DAYS. atorvastati atorvastati No atorvastat [place] n 20 mg n 20 mg in 20 mg Commu ni tablet TAKE tablet TAKE tablet ty ONE (1) ONE (1) TAKE ONE Hospi ta TABLET(S) TABLET(S) (1) l BY MOUTH BY MOUTH TABLET(S) Cl inics ONCE A DAY. ONCE A DAY. BY MOUTH ONCE A DAY. Calcium 600 Calcium 600 No Calcium [place] daily daily 600 daily Communi ty [facility] carvedilol carvedilol No carvedilol [place] 25 mg 25 mg 25 mg Communi tablet TAKE tablet TAKE tablet ty ONE (1) ONE (1) TAKE ONE Hospi ta TABLET(S) TABLET(S) (1) l BY MOUTH BY MOUTH TABLET(S) Cl inics TWICE A TWICE A BY MOUTH DAY. DAY. TWICE A DAY. furosemide furosemide No furosemide [place] 80 mg 80 mg 80 mg Communi tablet TAKE tablet TAKE tablet ty ONE (1) ONE (1) TAKE ONE Hospi ta TABLET(S) TABLET(S) (1) l BY MOUTH BY MOUTH TABLET(S) Cl inics ONCE A DAY. ONCE A DAY. BY MOUTH ONCE A DAY. Kenalog 40 Kenalog 40 No Kenalog 40 [place] mg/mL mg/mL mg/mL Communi suspension suspension suspension ty for for for Hospita injection injection injection l IM one time IM one time IM one Clinics time losartan 50 losartan 50 No losartan [place] mg tablet mg tablet 50 mg Comm uni TAKE ONE TAKE ONE tablet ty (1) (1) TAKE ONE Hospita TABLET(S) TABLET(S) (1) l BY MOUTH BY MOUTH TABLET(S) Cl inics ONCE A DAY. ONCE A DAY. BY MOUTH ONCE A DAY. montelukast montelukast No montelukas [place] 10 mg 10 mg t 10 mg Communi tablet TAKE tablet TAKE tablet ty ONE (1) ONE (1) TAKE ONE Hospi ta TABLET(S) TABLET(S) (1) l BY MOUTH BY MOUTH TABLET(S) Cl inics EVERY EVERY BY MOUTH MORNING. MORNING. EVERY MORNING. Mucinex Mucinex No Mucinex [place] [facility] naproxen naproxen No naproxen Swe margy 500 mg 500 mg 500 mg Communi tablet TAKE tablet TAKE tablet ty ONE (1) ONE (1) TAKE ONE Hospi ta TABLET(S) TABLET(S) (1) l BY MOUTH BY MOUTH TABLET(S) Cl inics TWICE A DAY TWICE A DAY BY MOUTH WITH MEALS. WITH MEALS. TWICE A DAY WITH MEALS. omeprazole omeprazole No omeprazole [place] 10 mg 10 mg 10 mg Communi capsule,del capsule,del capsule,de ty ayed ayed layed Hospita release release release l TAKE ONE TAKE ONE TAKE ONE Cli nics (1) (1) (1) CAPSULE(S) CAPSULE(S) CAPSULE(S) BY MOUTH BY MOUTH BY MOUTH TWICE A TWICE A TWICE A DAY. DAY. DAY. One A Day One A Day No One A Day [place] Vitamin Vitamin Vitamin Commun i Daily Daily Daily ty [facility] Probiotic Probiotic No Probiotic [place] [facility] spironolact spironolact No spironolac [place] one 25 mg one 25 mg tone 25 mg Communi tablet TAKE tablet TAKE tablet ty ONE (1) ONE (1) TAKE ONE Hospi ta TABLET(S) TABLET(S) (1) l BY MOUTH BY MOUTH TABLET(S) Cl inics ONCE A DAY. ONCE A DAY. BY MOUTH ONCE A DAY. turmeric turmeric No turmeric Swe margy Communi [facility] Tylenol 325 Tylenol 325 No 2 Q6H Tylenol [place] mg tablet mg tablet 325 mg Com clarke Take 2 Take 2 tablet ty tablets tablets Take 2 Hospita every 6 every 6 tablets l hours by hours by every 6 Clin ics oral route oral route hours by as needed. as needed. oral route as needed. Vitamin D3 Vitamin D3 No Vitamin D3 [place] 5000 iu 5000 iu 5000 iu Commun i daily daily daily ty [facility] Zyrtec Zyrtec No Zyrtec [place] [facility] atorvastati atorvastati No atorvastat [place] n 20 mg n 20 mg in 20 mg Commu ni tablet TAKE tablet TAKE tablet ty ONE (1) ONE (1) TAKE ONE Hospi ta TABLET(S) TABLET(S) (1) l BY MOUTH BY MOUTH TABLET(S) Cl inics ONCE A DAY. ONCE A DAY. BY MOUTH ONCE A DAY. Calcium 600 Calcium 600 No Calcium [place] daily daily 600 daily Communi ty [facility] carvedilol carvedilol No carvedilol [place] 25 mg 25 mg 25 mg Communi tablet TAKE tablet TAKE tablet ty ONE (1) ONE (1) TAKE ONE Hospi ta TABLET(S) TABLET(S) (1) l BY MOUTH BY MOUTH TABLET(S) Cl inics TWICE A TWICE A BY MOUTH DAY. DAY. TWICE A DAY. Cipro 500 Cipro 500 No 1 Q12H Cipro 500 [place] mg tablet mg tablet mg tablet Communi Take 1 Take 1 Take 1 ty tablet tablet tablet Hospita every 12 every 12 every 12 l hours by hours by hours by Cli nics oral route. oral route. oral route. furosemide furosemide No furosemide [place] 80 mg 80 mg 80 mg Communi tablet TAKE tablet TAKE tablet ty ONE (1) ONE (1) TAKE ONE Hospi ta TABLET(S) TABLET(S) (1) l BY MOUTH BY MOUTH TABLET(S) Cl inics ONCE A DAY. ONCE A DAY. BY MOUTH ONCE A DAY. losartan 50 losartan 50 No losartan [place] mg tablet mg tablet 50 mg Comm uni TAKE ONE TAKE ONE tablet ty (1) (1) TAKE ONE Hospita TABLET(S) TABLET(S) (1) l BY MOUTH BY MOUTH TABLET(S) Cl inics ONCE A DAY. ONCE A DAY. BY MOUTH ONCE A DAY. montelukast montelukast No montelukas [place] 10 mg 10 mg t 10 mg Communi tablet TAKE tablet TAKE tablet ty ONE (1) ONE (1) TAKE ONE Hospi ta TABLET(S) TABLET(S) (1) l BY MOUTH BY MOUTH TABLET(S) Cl inics EVERY EVERY BY MOUTH MORNING. MORNING. EVERY MORNING. Mucinex Mucinex No Mucinex [place] [facility] l Clinics naproxen naproxen [...] DAY WITH MEALS. omeprazole omeprazole No omeprazole [place] 10 mg 10 mg 10 mg Communi capsule,del capsule,del capsule,de ty ayed ayed layed Hospita release release release l TAKE ONE TAKE ONE TAKE ONE Cli nics (1) (1) (1) CAPSULE(S) CAPSULE(S) CAPSULE(S) BY MOUTH BY MOUTH BY MOUTH TWICE A TWICE A TWICE A DAY. DAY. DAY. One A Day One A Day No One A Day [place] Vitamin Vitamin Vitamin Commun i Daily Daily Daily [facility] Probiotic Probiotic No Probiotic [place] [facility] spironolact spironolact No spironolac [place] one 25 mg one 25 mg tone 25 mg Communi tablet TAKE tablet TAKE tablet ty ONE (1) ONE (1) TAKE ONE Hospi ta TABLET(S) TABLET(S) (1) l BY MOUTH BY MOUTH TABLET(S) Cl inics ONCE A DAY. ONCE A DAY. BY MOUTH ONCE A DAY. turmeric turmeric No turmeric Swe margy Communi [facility] Tylenol 325 Tylenol 325 No 2 Q6H Tylenol [place] mg tablet mg tablet 325 mg Com clarke Take 2 Take 2 tablet ty tablets tablets Take 2 Hospita every 6 every 6 tablets l hours by hours by every 6 Clin ics oral route oral route hours by as needed. as needed. oral route as needed. Vitamin D3 Vitamin D3 No Vitamin D3 [place] 5000 iu 5000 iu 5000 iu Commun i daily daily daily ty [facility] Zyrtec Zyrtec No Zyrtec [place] [facility] atorvastati atorvastati No atorvastat [place] n 20 mg n 20 mg in 20 mg Commu ni tablet TAKE tablet TAKE tablet ty ONE (1) ONE (1) TAKE ONE Hospi ta TABLET(S) TABLET(S) (1) l BY MOUTH BY MOUTH TABLET(S) Cl inics ONCE A DAY. ONCE A DAY. BY MOUTH ONCE A DAY. Calcium 600 Calcium 600 No Calcium [place] daily daily 600 daily Communi [facility] carvedilol carvedilol No carvedilol [place] 25 mg 25 mg 25 mg Communi tablet TAKE tablet TAKE tablet ty ONE (1) ONE (1) TAKE ONE Hospi ta TABLET(S) TABLET(S) (1) l BY MOUTH BY MOUTH TABLET(S) Cl inics TWICE A TWICE A BY MOUTH DAY. DAY. TWICE A DAY. Cipro 500 Cipro 500 No 1 Q12H Cipro 500 [place] mg tablet mg tablet mg tablet Communi Take 1 Take 1 Take 1 ty tablet tablet tablet Hospita every 12 every 12 every 12 l hours by hours by hours by Cli nics oral route. oral route. oral route. furosemide furosemide No furosemide [place] 80 mg 80 mg 80 mg Communi tablet TAKE tablet TAKE tablet ty ONE (1) ONE (1) TAKE ONE Hospi ta TABLET(S) TABLET(S) (1) l BY MOUTH BY MOUTH TABLET(S) Cl inics ONCE A DAY. ONCE A DAY. BY MOUTH ONCE A DAY. Kenalog 40 Kenalog 40 No 2mL Kenalog 40 [place] mg/mL mg/mL mg/mL Communi suspension suspension suspension ty for for for Hospita injection injection injection l Take 2 mL Take 2 mL Take 2 mL Clinics by by by injection injection injection route. route. route. losartan 50 losartan 50 No losartan [place] mg tablet mg tablet 50 mg Comm uni TAKE ONE TAKE ONE tablet ty (1) (1) TAKE ONE Hospita TABLET(S) TABLET(S) (1) l BY MOUTH BY MOUTH TABLET(S) Cl inics ONCE A DAY. ONCE A DAY. BY MOUTH ONCE A DAY. montelukast montelukast No montelukas [place] 10 mg 10 mg t 10 mg Communi tablet TAKE tablet TAKE tablet ty ONE (1) ONE (1) TAKE ONE Hospi ta TABLET(S) TABLET(S) (1) l BY MOUTH BY MOUTH TABLET(S) Cl inics EVERY EVERY BY MOUTH MORNING. MORNING. EVERY MORNING. Mucinex Mucinex No Mucinex [place] Commun[facility] ty [facility] naproxen naproxen No naproxen Swe margy 500 mg 500 mg 500 mg Communi tablet TAKE tablet TAKE tablet ty ONE (1) ONE (1) TAKE ONE Hospi ta TABLET(S) TABLET(S) (1) l BY MOUTH BY MOUTH TABLET(S) Cl inics TWICE A DAY TWICE A DAY BY MOUTH WITH MEALS. WITH MEALS. TWICE A DAY WITH MEALS. omeprazole omeprazole No omeprazole [place] 10 mg 10 mg 10 mg Communi capsule,del capsule,del capsule,de ty ayed ayed layed Hospita release release release l TAKE ONE TAKE ONE TAKE ONE Cli nics (1) (1) (1) CAPSULE(S) CAPSULE(S) CAPSULE(S) BY MOUTH BY MOUTH BY MOUTH TWICE A TWICE A TWICE A DAY. DAY. DAY. One A Day One A Day No One A Day [place] Vitamin Vitamin Vitamin Commun i Daily Daily Daily [facility] Probiotic Probiotic No Probiotic [place] [facility] spironolact spironolact No spironolac [place] one 25 mg one 25 mg tone 25 mg Communi tablet TAKE tablet TAKE tablet ty ONE (1) ONE (1) TAKE ONE Hospi ta TABLET(S) TABLET(S) (1) l BY MOUTH BY MOUTH TABLET(S) Cl inics ONCE A DAY. ONCE A DAY. BY MOUTH ONCE A DAY. turmeric turmeric No turmeric Swe margy Communi [facility] Tylenol 325 Tylenol 325 No 2 Q6H Tylenol [place] mg tablet mg tablet 325 mg Com clarke Take 2 Take 2 tablet ty tablets tablets Take 2 Hospita every 6 every 6 tablets l hours by hours by every 6 Clin ics oral route oral route hours by as needed. as needed. oral route as needed. Vitamin D3 Vitamin D3 No Vitamin D3 [place] 5000 iu 5000 iu 5000 iu Commun i daily daily daily [facility] Zyrtec Zyrtec No Zyrtec [place] [facility] atorvastati atorvastati No atorvastat [place] n 20 mg n 20 mg in 20 mg Commu ni tablet TAKE tablet TAKE tablet ty ONE (1) ONE (1) TAKE ONE Hospi ta TABLET(S) TABLET(S) (1) l BY MOUTH BY MOUTH TABLET(S) Cl inics ONCE A DAY. ONCE A DAY. BY MOUTH ONCE A DAY. Calcium 600 Calcium 600 No Calcium [place] daily daily 600 daily Communi [facility] carvedilol carvedilol No carvedilol [place] 25 mg 25 mg 25 mg Communi tablet TAKE tablet TAKE tablet ty ONE (1) ONE (1) TAKE ONE Hospi ta TABLET(S) TABLET(S) (1) l BY MOUTH BY MOUTH TABLET(S) Cl inics TWICE A TWICE A BY MOUTH DAY. DAY. TWICE A DAY. furosemide furosemide No furosemide [place] 80 mg 80 mg 80 mg Communi tablet TAKE tablet TAKE tablet ty ONE (1) ONE (1) TAKE ONE Hospi ta TABLET(S) TABLET(S) (1) l BY MOUTH BY MOUTH TABLET(S) Cl inics ONCE A DAY. ONCE A DAY. BY MOUTH ONCE A DAY. losartan 50 losartan 50 No losartan [place] mg tablet mg tablet 50 mg Comm uni TAKE ONE TAKE ONE tablet ty (1) (1) TAKE ONE Hospita TABLET(S) TABLET(S) (1) l BY MOUTH BY MOUTH TABLET(S) Cl inics ONCE A DAY. ONCE A DAY. BY MOUTH ONCE A DAY. montelukast montelukast No montelukas [place] 10 mg 10 mg t 10 mg Communi tablet TAKE tablet TAKE tablet ty ONE (1) ONE (1) TAKE ONE Hospi ta TABLET(S) TABLET(S) (1) l BY MOUTH BY MOUTH TABLET(S) Cl inics EVERY EVERY BY MOUTH MORNING. MORNING. EVERY MORNING. Mucinex Mucinex No Mucinex [place] Commun[facility] ty [facility] mupirocin 2 mupirocin 2 No mupirocin [place] % topical % topical 2 % Commu [...] DAY WITH MEALS. omeprazole omeprazole No omeprazole [place] 10 mg 10 mg 10 mg Communi capsule,del capsule,del capsule,de ty ayed ayed layed Hospita release release release l TAKE ONE TAKE ONE TAKE ONE Cli nics (1) (1) (1) CAPSULE(S) CAPSULE(S) CAPSULE(S) BY MOUTH BY MOUTH BY MOUTH TWICE A TWICE A TWICE A DAY. DAY. DAY. One A Day One A Day No One A Day [place] Vitamin Vitamin Vitamin Commun i Daily Daily Daily ty [facility] Probiotic Probiotic No Probiotic [place] Commun[facility] ty [facility] spironolact spironolact No spironolac [place] one 25 mg one 25 mg tone 25 mg Communi tablet TAKE tablet TAKE tablet ty ONE (1) ONE (1) TAKE ONE Hospi ta TABLET(S) TABLET(S) (1) l BY MOUTH BY MOUTH TABLET(S) Cl inics ONCE A DAY. ONCE A DAY. BY MOUTH ONCE A DAY. turmeric turmeric No turmeric Swe margy Communi ty [facility] Tylenol 325 Tylenol 325 No 2 Q6H Tylenol [place] mg tablet mg tablet 325 mg Com clarke Take 2 Take 2 tablet ty tablets tablets Take 2 Hospita every 6 every 6 tablets l hours by hours by every 6 Clin ics oral route oral route hours by as needed. as needed. oral route as needed. Vitamin D3 Vitamin D3 No Vitamin D3 [place] 5000 iu 5000 iu 5000 iu Commun i daily daily daily ty [facility] Zyrtec Zyrtec No Zyrtec [place] Communi ty [facility] amoxicillin amoxicillin No 1 Q12H amoxicilli [place] [phone] n 875 Communi mg-potassiu mg-potassiu mg-potassi ty m m [facility] clavulanate clavulanate clavulanat l 125 mg 125 mg e 125 mg Clinics tablet Take tablet Take tablet 1 tablet 1 tablet Take 1 every 12 every 12 tablet hours by hours by every 12 oral route. oral route. hours by oral route. atorvastati atorvastati No atorvastat [place] n 20 mg n 20 mg in 20 mg Commu ni tablet TAKE tablet TAKE tablet ty ONE (1) ONE (1) TAKE ONE Hospi ta TABLET(S) TABLET(S) (1) l BY MOUTH BY MOUTH TABLET(S) Cl inics ONCE A DAY. ONCE A DAY. BY MOUTH ONCE A DAY. Calcium 600 Calcium 600 No Calcium [place] daily daily 600 daily Communi ty [facility] carvedilol carvedilol No carvedilol [place] 25 mg 25 mg 25 mg Communi tablet TAKE tablet TAKE tablet ty ONE (1) ONE (1) TAKE ONE Hospi ta TABLET(S) TABLET(S) (1) l BY MOUTH BY MOUTH TABLET(S) Cl inics TWICE A TWICE A BY MOUTH DAY. DAY. TWICE A DAY. furosemide furosemide No furosemide [place] 80 mg 80 mg 80 mg Communi tablet TAKE tablet TAKE tablet ty ONE (1) ONE (1) TAKE ONE Hospi ta TABLET(S) TABLET(S) (1) l BY MOUTH BY MOUTH TABLET(S) Cl inics ONCE A DAY. ONCE A DAY. BY MOUTH ONCE A DAY. hydrocodone hydrocodone No hydrocodon [facility] 5 5 e 5 Communi mg-acetamin mg-acetamin [...] DAY. losartan 50 losartan 50 No losartan [place] mg tablet mg tablet 50 mg Comm uni TAKE ONE TAKE ONE tablet ty (1) (1) TAKE ONE Hospita TABLET(S) TABLET(S) (1) l BY MOUTH BY MOUTH TABLET(S) Cl inics ONCE A DAY. ONCE A DAY. BY MOUTH ONCE A DAY. montelukast montelukast No montelukas [place] 10 mg 10 mg t 10 mg Communi tablet TAKE tablet TAKE tablet ty ONE (1) ONE (1) TAKE ONE Hospi ta TABLET(S) TABLET(S) (1) l BY MOUTH BY MOUTH TABLET(S) Cl inics EVERY EVERY BY MOUTH MORNING. MORNING. EVERY MORNING. Mucinex Mucinex No Mucinex [place] [facility] ty [facility] l Clinics mupirocin 2 mupirocin 2 No mupirocin [place] % topical % topical 2 % Commu [...] DAY WITH MEALS. omeprazole omeprazole No omeprazole [place] 10 mg 10 mg 10 mg Communi capsule,del capsule,del capsule,de ty ayed ayed layed Hospita release release release l TAKE ONE TAKE ONE TAKE ONE Cli nics (1) (1) (1) CAPSULE(S) CAPSULE(S) CAPSULE(S) BY MOUTH BY MOUTH BY MOUTH TWICE A TWICE A TWICE A DAY. DAY. DAY. One A Day One A Day No One A Day [place] Vitamin Vitamin Vitamin Commun i Daily Daily Daily [facility] Probiotic Probiotic No Probiotic [place] [facility] spironolact spironolact No spironolac [place] one 25 mg one 25 mg tone 25 mg Communi tablet TAKE tablet TAKE tablet ty ONE (1) ONE (1) TAKE ONE Hospi ta TABLET(S) TABLET(S) (1) l BY MOUTH BY MOUTH TABLET(S) Cl inics ONCE A DAY. ONCE A DAY. BY MOUTH ONCE A DAY. tramadol 50 tramadol 50 No tramadol [place] mg tablet mg tablet 50 mg Comm uni TAKE ONE TAKE ONE tablet ty (1) (1) TAKE ONE Hospita TABLET(S) TABLET(S) (1) l BY MOUTH BY MOUTH TABLET(S) Cl inics EVERY SIX EVERY SIX BY MOUTH HOURS HOURS EVERY SIX NEEDED FOR NEEDED FOR HOURS SEVERE SEVERE NEEDED FOR PAIN. PAIN. SEVERE PAIN. turmeric turmeric No turmeric Swe margy Communi [facility] Tylenol 325 Tylenol 325 No 2 Q6H Tylenol [place] mg tablet mg tablet 325 mg Com clarke Take 2 Take 2 tablet ty tablets tablets Take 2 Hospita every 6 every 6 tablets l hours by hours by every 6 Clin ics oral route oral route hours by as needed. as needed. oral route as needed. Vitamin D3 Vitamin D3 No Vitamin D3 [place] 5000 iu 5000 iu 5000 iu Commun i daily daily daily [facility] Zyrtec Zyrtec No Zyrtec [place] [facility]i [facility] amoxicillin amoxicillin No 1 Q12H amoxicilli [place] [phone] n 875 Communi mg-potassiu mg-potassiu mg-potassi ty m m [facility] clavulanate clavulanate clavulanat l 125 mg 125 mg e 125 mg Clinics tablet Take tablet Take tablet 1 tablet 1 tablet Take 1 every 12 every 12 tablet hours by hours by every 12 oral route. oral route. hours by oral route. atorvastati atorvastati No atorvastat [place] n 20 mg n 20 mg in 20 mg Commu ni tablet TAKE tablet TAKE tablet ty ONE (1) ONE (1) TAKE ONE Hospi ta TABLET(S) TABLET(S) (1) l BY MOUTH BY MOUTH TABLET(S) Cl inics ONCE A DAY. ONCE A DAY. BY MOUTH ONCE A DAY. Calcium 600 Calcium 600 No Calcium [place] daily daily 600 daily Communi ty [facility] l Clinics carvedilol carvedilol No carvedilol [place] 25 mg 25 mg 25 mg Communi tablet TAKE tablet TAKE tablet ty ONE (1) ONE (1) TAKE ONE Hospi ta TABLET(S) TABLET(S) (1) l BY MOUTH BY MOUTH TABLET(S) Cl inics TWICE A TWICE A BY MOUTH DAY. DAY. TWICE A DAY. ceftriaxone ceftriaxone No 1g ceftriaxon [facility] 1 gram 1 gram e 1 gram Communi solution solution solution ty for for for Hospita injection injection injection l Take 1 g by Take 1 g by Take 1 g Clinics injection injection by route. route. injection route. furosemide furosemide No furosemide [facility] 80 mg 80 mg 80 mg Communi tablet TAKE tablet TAKE tablet ty ONE (1) ONE (1) TAKE ONE Hospi ta TABLET(S) TABLET(S) (1) l BY MOUTH BY MOUTH TABLET(S) Cl inics ONCE A DAY. ONCE A DAY. BY MOUTH ONCE A DAY. hydrocodone hydrocodone No hydrocodon [facility] 5 5 e 5 Communi mg-acetamin mg-acetamin [...] 40 Kenalog 40 No 2mL Kenalog 40 [facility] mg/mL mg/mL mg/mL Communi suspension suspension suspension ty for for for Hospita injection injection injection l Take 2 mL Take 2 mL Take 2 mL Clinics by by by injection injection injection route. route. route. losartan 50 losartan 50 No losartan [facility] mg tablet mg tablet 50 mg Comm uni TAKE ONE TAKE ONE tablet ty (1) (1) TAKE ONE Hospita TABLET(S) TABLET(S) (1) l BY MOUTH BY MOUTH TABLET(S) Cl inics ONCE A DAY. ONCE A DAY. BY MOUTH ONCE A DAY. montelukast montelukast No montelukas [facility] 10 mg 10 mg t 10 mg Communi tablet TAKE tablet TAKE tablet ty ONE (1) ONE (1) TAKE ONE Hospi ta TABLET(S) TABLET(S) (1) l BY MOUTH BY MOUTH TABLET(S) Cl inics EVERY EVERY BY MOUTH MORNING. MORNING. EVERY MORNING. Mucinex Mucinex No Mucinex [place] Communi ty [facility] mupirocin 2 mupirocin 2 No mupirocin [facility] % topical % topical 2 % Commu [...] DAY WITH MEALS. omeprazole omeprazole No omeprazole [facility] 10 mg 10 mg 10 mg Communi capsule,del capsule,del capsule,de ty ayed ayed layed Hospita release release release l TAKE ONE TAKE ONE TAKE ONE Cli nics (1) (1) (1) CAPSULE(S) CAPSULE(S) CAPSULE(S) BY MOUTH BY MOUTH BY MOUTH TWICE A TWICE A TWICE A DAY. DAY. DAY. One A Day One A Day No One A Day [facility] Vitamin Vitamin Vitamin Commun i Daily Daily Daily ty [facility] Probiotic Probiotic No Probiotic [place] Communi ty [facility] spironolact spironolact No spironolac [place] one 25 mg one 25 mg tone 25 mg Communi tablet TAKE tablet TAKE tablet ty ONE (1) ONE (1) TAKE ONE Hospi ta TABLET(S) TABLET(S) (1) l BY MOUTH BY MOUTH TABLET(S) Cl inics ONCE A DAY. ONCE A DAY. BY MOUTH ONCE A DAY. tramadol 50 tramadol 50 No tramadol [facility] mg tablet mg tablet 50 mg Comm uni TAKE ONE TAKE ONE tablet ty (1) (1) TAKE ONE Hospita TABLET(S) TABLET(S) (1) l BY MOUTH BY MOUTH TABLET(S) Cl inics EVERY SIX EVERY SIX BY MOUTH HOURS HOURS EVERY SIX NEEDED FOR NEEDED FOR HOURS SEVERE SEVERE NEEDED FOR PAIN. PAIN. SEVERE PAIN. turmeric turmeric No turmeric Swe margy Communi ty [facility] Tylenol 325 Tylenol 325 No 2 Q6H Tylenol [facility] mg tablet mg tablet 325 mg Com clarke Take 2 Take 2 tablet ty tablets tablets Take 2 Hospita every 6 every 6 tablets l hours by hours by every 6 Clin ics oral route oral route hours by as needed. as needed. oral route as needed. Vitamin D3 Vitamin D3 No Vitamin D3 [facility] 5000 iu 5000 iu 5000 iu Commun i daily daily daily ty [facility] Zyrtec Zyrtec No Zyrtec [place] Communi ty [facility] atorvastati atorvastati No atorvastat [place] n 20 mg n 20 mg in 20 mg Commu ni tablet TAKE tablet TAKE tablet ty ONE (1) ONE (1) TAKE ONE Hospi ta TABLET(S) TABLET(S) (1) l BY MOUTH BY MOUTH TABLET(S) Cl inics ONCE A DAY. ONCE A DAY. BY MOUTH ONCE A DAY. Calcium 600 Calcium 600 No Calcium [facility] daily daily 600 daily Communi ty [facility] carvedilol carvedilol No carvedilol [facility] 25 mg 25 mg 25 mg Communi tablet TAKE tablet TAKE tablet ty ONE (1) ONE (1) TAKE ONE Hospi ta TABLET(S) TABLET(S) (1) l BY MOUTH BY MOUTH TABLET(S) Cl inics TWICE A TWICE A BY MOUTH DAY. DAY. TWICE A DAY. furosemide furosemide No furosemide [facility] 80 mg 80 mg 80 mg Communi tablet TAKE tablet TAKE tablet ty ONE (1) ONE (1) TAKE ONE Hospi ta TABLET(S) TABLET(S) (1) l BY MOUTH BY MOUTH TABLET(S) Cl inics ONCE A DAY. ONCE A DAY. BY MOUTH ONCE A DAY. hydrocodone hydrocodone No hydrocodon [facility] 5 5 e 5 Communi mg-acetamin mg-acetamin [...] 40 Kenalog 40 No 2mL Kenalog 40 [facility] mg/mL mg/mL mg/mL Communi suspension suspension suspension ty for for for Hospita injection injection injection l Take 2 mL Take 2 mL Take 2 mL Clinics by by by injection injection injection route. route. route. losartan 50 losartan 50 No losartan [facility] mg tablet mg tablet 50 mg Comm uni TAKE ONE TAKE ONE tablet ty (1) (1) TAKE ONE Hospita TABLET(S) TABLET(S) (1) l BY MOUTH BY MOUTH TABLET(S) Cl inics ONCE A DAY. ONCE A DAY. BY MOUTH ONCE A DAY. montelukast montelukast No montelukas [facility] 10 mg 10 mg t 10 mg Communi tablet TAKE tablet TAKE tablet ty ONE (1) ONE (1) TAKE ONE Hospi ta TABLET(S) TABLET(S) (1) l BY MOUTH BY MOUTH TABLET(S) Cl inics EVERY EVERY BY MOUTH MORNING. MORNING. EVERY MORNING. Mucinex Mucinex No Mucinex [place] [facility] Clin[facility] mupirocin 2 mupirocin 2 No mupirocin [place] % topical % topical 2 % Commu [...] One A Day No One A Day [place] Vitamin Vitamin Vitamin Commun i Daily Daily Daily [facility] Probiotic Probiotic No Probiotic [place] [facility] Protonix 40 Protonix 40 No 1 Q1D Protonix [place] mg mg 40 mg Communi tablet,kennedy tablet,kennedy tablet,del ty yed release yed release ayed H ospita Take 1 Take 1 release l tablet tablet Take 1 Clinics every day every day tablet by oral by oral every day route. route. by oral route. spironolact spironolact No spironolac [place] one 25 mg one 25 mg tone 25 mg Communi tablet TAKE tablet TAKE tablet ty ONE (1) ONE (1) TAKE ONE Hospi ta TABLET(S) TABLET(S) (1) l BY MOUTH BY MOUTH TABLET(S) Cl inics ONCE A DAY. ONCE A DAY. BY MOUTH ONCE A DAY. tramadol 50 tramadol 50 No tramadol [place] mg tablet mg tablet 50 mg Comm uni TAKE ONE TAKE ONE tablet ty (1) (1) TAKE ONE Hospita TABLET(S) TABLET(S) (1) l BY MOUTH BY MOUTH TABLET(S) Cl inics EVERY SIX EVERY SIX BY MOUTH HOURS HOURS EVERY SIX NEEDED FOR NEEDED FOR HOURS SEVERE SEVERE NEEDED FOR PAIN. PAIN. SEVERE PAIN. turmeric turmeric No turmeric Swe marg[facility] Communi [facility] Tylenol 325 Tylenol 325 No 2 Q6H Tylenol [place] mg tablet mg tablet 325 mg Com clarke Take 2 Take 2 tablet ty tablets tablets Take 2 Hospita every 6 every 6 tablets l hours by hours by every 6 Clin ics oral route oral route hours by as needed. as needed. oral route as needed. Vitamin D3 Vitamin D3 No Vitamin D3 [place] 5000 iu 5000 iu 5000 iu Commun i daily daily daily [facility] Zyrtec Zyrtec No Zyrtec [place] [facility] atorvastati atorvastati No atorvastat [place] n 20 mg n 20 mg in 20 mg Commu ni tablet TAKE tablet TAKE tablet ty ONE (1) ONE (1) TAKE ONE Hospi ta TABLET(S) TABLET(S) (1) l BY MOUTH BY MOUTH TABLET(S) Cl inics ONCE A DAY. ONCE A DAY. BY MOUTH ONCE A DAY. Calcium 600 Calcium 600 No Calcium [place] daily daily 600 daily Communi ty [facility]osp[facility] l Clinics carvedilol carvedilol No carvedilol [place] 25 mg 25 mg 25 mg Communi tablet TAKE tablet TAKE tablet ty ONE (1) ONE (1) TAKE ONE Hospi ta TABLET(S) TABLET(S) (1) l BY MOUTH BY MOUTH TABLET(S) Cl inics TWICE A TWICE A BY MOUTH DAY. DAY. TWICE A DAY. cyanocobala cyanocobala No 1mL cyanocobal [place] min (vit min (vit josue (vit Co mmuni B-12) 1,000 B-12) 1,000 B-12) ty mcg/mL mcg/mL 1,000 Hospita injection injection mcg/mL l solution solution injection Cl inics Inject 1 mL Inject 1 mL solution every month every month Inject 1 by by mL every subcutaneou subcutaneou month by s route. s route. subcutaneo us route. furosemide furosemide No furosemide [place] 80 mg 80 mg 80 mg Communi tablet TAKE tablet TAKE tablet ty ONE (1) ONE (1) TAKE ONE Hospi ta TABLET(S) TABLET(S) (1) l BY MOUTH BY MOUTH TABLET(S) Cl inics ONCE A DAY. ONCE A DAY. BY MOUTH ONCE A DAY. hydrocodone hydrocodone No hydrocodon [place] 5 5 e 5 Communi mg-acetamin mg-acetamin [...] 40 Kenalog 40 No 2mL Kenalog 40 [place] mg/mL mg/mL mg/mL Communi suspension suspension suspension ty for for for Hospita injection injection injection l Take 2 mL Take 2 mL Take 2 mL Clinics by by by injection injection injection route. route. route. losartan 50 losartan 50 No losartan [place] mg tablet mg tablet 50 mg Comm uni TAKE ONE TAKE ONE tablet ty (1) (1) TAKE ONE Hospita TABLET(S) TABLET(S) (1) l BY MOUTH BY MOUTH TABLET(S) Cl inics ONCE A DAY. ONCE A DAY. BY MOUTH ONCE A DAY. montelukast montelukast No montelukas [place] 10 mg 10 mg t 10 mg Communi tablet TAKE tablet TAKE tablet ty ONE (1) ONE (1) TAKE ONE Hospi ta TABLET(S) TABLET(S) (1) l BY MOUTH BY MOUTH TABLET(S) Cl inics EVERY EVERY BY MOUTH MORNING. MORNING. EVERY MORNING. Mucinex Mucinex No Mucinex [place] Communi ty [facility] mupirocin 2 mupirocin 2 No mupirocin [place] % topical % topical 2 % Commu [...] One A Day No One A Day [place] Vitamin Vitamin Vitamin Commun i Daily Daily Daily ty [facility] Probiotic Probiotic No Probiotic [place] Communi ty [facility] Protonix 40 Protonix 40 No 1 Q1D Protonix [place] mg mg 40 mg Communi tablet,kennedy tablet,kennedy tablet,del ty yed release yed release ayed H ospita Take 1 Take 1 release l tablet tablet Take 1 Clinics every day every day tablet by oral by oral every day route. route. by oral route. spironolact spironolact No spironolac [place] one 25 mg one 25 mg tone 25 mg Communi tablet TAKE tablet TAKE tablet ty ONE (1) ONE (1) TAKE ONE Hospi ta TABLET(S) TABLET(S) (1) l BY MOUTH BY MOUTH TABLET(S) Cl inics ONCE A DAY. ONCE A DAY. BY MOUTH ONCE A DAY. tramadol 50 tramadol 50 No tramadol [place] mg tablet mg tablet 50 mg Comm uni TAKE ONE TAKE ONE tablet ty (1) (1) TAKE ONE Hospita TABLET(S) TABLET(S) (1) l BY MOUTH BY MOUTH TABLET(S) Cl inics EVERY SIX EVERY SIX BY MOUTH HOURS HOURS EVERY SIX NEEDED FOR NEEDED FOR HOURS SEVERE SEVERE NEEDED FOR PAIN. PAIN. SEVERE PAIN. turmeric turmeric No turmeric Swe margy Communi ty [facility] Tylenol 325 Tylenol 325 No 2 Q6H Tylenol [place] mg tablet mg tablet 325 mg Com clarke Take 2 Take 2 tablet ty tablets tablets Take 2 Hospita every 6 every 6 tablets l hours by hours by every 6 Clin ics oral route oral route hours by as needed. as needed. oral route as needed. Vitamin D3 Vitamin D3 No Vitamin D3 [place] 5000 iu 5000 iu 5000 iu Commun i daily daily daily ty [facility] Zyrtec Zyrtec No Zyrtec [place] Communi ty [facility] atorvastati atorvastati No atorvastat [place] n 20 mg n 20 mg in 20 mg Commu ni tablet TAKE tablet TAKE tablet ty ONE (1) ONE (1) TAKE ONE Hospi ta TABLET(S) TABLET(S) (1) l BY MOUTH BY MOUTH TABLET(S) Cl inics ONCE A DAY. ONCE A DAY. BY MOUTH ONCE A DAY. Calcium 600 Calcium 600 No Calcium [place] daily daily 600 daily Communi ty [facility] carvedilol carvedilol No carvedilol [place] 25 mg 25 mg 25 mg Communi tablet TAKE tablet TAKE tablet ty ONE (1) ONE (1) TAKE ONE Hospi ta TABLET(S) TABLET(S) (1) l BY MOUTH BY MOUTH TABLET(S) Cl inics TWICE A TWICE A BY MOUTH DAY. DAY. TWICE A DAY. cyanocobala cyanocobala No 1mL cyanocobal [place] min (vit min (vit josue (vit Co mmuni B-12) 1,000 B-12) 1,000 B-12) ty mcg/mL mcg/mL 1,000 Hospita injection injection mcg/mL l solution solution injection Cl inics Inject 1 mL Inject 1 mL solution every month every month Inject 1 by by mL every subcutaneou subcutaneou month by s route. s route. subcutaneo us route. furosemide furosemide No furosemide [place] 80 mg 80 mg 80 mg Communi tablet TAKE tablet TAKE tablet ty ONE (1) ONE (1) TAKE ONE Hospi ta TABLET(S) TABLET(S) (1) l BY MOUTH BY MOUTH TABLET(S) Cl inics ONCE A DAY. ONCE A DAY. BY MOUTH ONCE A DAY. hydrocodone hydrocodone No hydrocodon [place] 5 5 e 5 Communi mg-acetamin mg-acetamin [...] 40 Kenalog 40 No 2mL Kenalog 40 [place] mg/mL mg/mL mg/mL Communi suspension suspension suspension ty for for for Hospita injection injection injection l Take 2 mL Take 2 mL Take 2 mL Clinics by by by injection injection injection route. route. route. losartan 50 losartan 50 No losartan [place] mg tablet mg tablet 50 mg Comm uni TAKE ONE TAKE ONE tablet ty (1) (1) TAKE ONE Hospita TABLET(S) TABLET(S) (1) l BY MOUTH BY MOUTH TABLET(S) Cl inics ONCE A DAY. ONCE A DAY. BY MOUTH ONCE A DAY. montelukast montelukast No montelukas [place] 10 mg 10 mg t 10 mg Communi tablet TAKE tablet TAKE tablet ty ONE (1) ONE (1) TAKE ONE Hospi ta TABLET(S) TABLET(S) (1) l BY MOUTH BY MOUTH TABLET(S) Cl inics EVERY EVERY BY MOUTH MORNING. MORNING. EVERY MORNING. Mucinex Mucinex No Mucinex [place] Communi ty [facility] Clin[facility] mupirocin 2 mupirocin 2 No mupirocin [place] % topical % topical 2 % Commu [...] MEALS. omeprazole omeprazole No 1capsul Q1D omeprazole [place] 20 mg 20 mg e(s) 20 mg [...] One A Day No One A Day [place] Vitamin Vitamin Vitamin Commun i Daily Daily Daily [facility] Probiotic Probiotic No Probiotic [place] [facility] spironolact spironolact No spironolac [place] one 25 mg one 25 mg tone 25 mg Communi tablet TAKE tablet TAKE tablet ty ONE (1) ONE (1) TAKE ONE Hospi ta TABLET(S) TABLET(S) (1) l BY MOUTH BY MOUTH TABLET(S) Cl inics ONCE A DAY. ONCE A DAY. BY MOUTH ONCE A DAY. tramadol 50 tramadol 50 No tramadol [place] mg tablet mg tablet 50 mg Comm uni TAKE ONE TAKE ONE tablet ty (1) (1) TAKE ONE Hospita TABLET(S) TABLET(S) (1) l BY MOUTH BY MOUTH TABLET(S) Cl inics EVERY SIX EVERY SIX BY MOUTH HOURS HOURS EVERY SIX NEEDED FOR NEEDED FOR HOURS SEVERE SEVERE NEEDED FOR PAIN. PAIN. SEVERE PAIN. turmeric turmeric No turmeric Swe marg[facility] Communi [facility] Tylenol 325 Tylenol 325 No 2 Q6H Tylenol [place] mg tablet mg tablet 325 mg Com clarke Take 2 Take 2 tablet ty tablets tablets Take 2 Hospita every 6 every 6 tablets l hours by hours by every 6 Clin ics oral route oral route hours by as needed. as needed. oral route as needed. Vitamin D3 Vitamin D3 No Vitamin D3 [place] 5000 iu 5000 iu 5000 iu Commun i daily daily daily ty [facility] Ztec Zyrtec No Zyrtec [place] Communi ty [facility] atorvastati atorvastati No atorvastat [place] n 20 mg n 20 mg in 20 mg Commu ni tablet TAKE tablet TAKE tablet ty ONE (1) ONE (1) TAKE ONE Hospi ta TABLET(S) TABLET(S) (1) l BY MOUTH BY MOUTH TABLET(S) Cl inics ONCE A DAY. ONCE A DAY. BY MOUTH ONCE A DAY. Calcium 600 Calcium 600 No Calcium [place] daily daily 600 daily Communi ty [facility] carvedilol carvedilol No carvedilol [place] 25 mg 25 mg 25 mg Communi tablet TAKE tablet TAKE tablet ty ONE (1) ONE (1) TAKE ONE Hospi ta TABLET(S) TABLET(S) (1) l BY MOUTH BY MOUTH TABLET(S) Cl inics TWICE A TWICE A BY MOUTH DAY. DAY. TWICE A DAY. cyanocobala cyanocobala No 1mL cyanocobal [place] min (vit min (vit josue (vit Co mmuni B-12) 1,000 B-12) 1,000 B-12) ty mcg/mL mcg/mL 1,000 Hospita injection injection mcg/mL l solution solution injection Cl inics Inject 1 mL Inject 1 mL solution every month every month Inject 1 by by mL every subcutaneou subcutaneou month by s route. s route. subcutaneo us route. furosemide furosemide No furosemide [place] 80 mg 80 mg 80 mg Communi tablet TAKE tablet TAKE tablet ty ONE (1) ONE (1) TAKE ONE Hospi ta TABLET(S) TABLET(S) (1) l BY MOUTH BY MOUTH TABLET(S) Cl inics ONCE A DAY. ONCE A DAY. BY MOUTH ONCE A DAY. hydrocodone hydrocodone No hydrocodon [place] 5 5 e 5 Communi mg-acetamin mg-acetamin [...] 40 Kenalog 40 No 2mL Kenalog 40 [place] mg/mL mg/mL mg/mL Communi suspension suspension suspension ty for for for Hospita injection injection injection l Take 2 mL Take 2 mL Take 2 mL Clinics by by by injection injection injection route. route. route. losartan 50 losartan 50 No losartan [place] mg tablet mg tablet 50 mg Comm uni TAKE ONE TAKE ONE tablet ty (1) (1) TAKE ONE Hospita TABLET(S) TABLET(S) (1) l BY MOUTH BY MOUTH TABLET(S) Cl inics ONCE A DAY. ONCE A DAY. BY MOUTH ONCE A DAY. montelukast montelukast No montelukas [place] 10 mg 10 mg t 10 mg Communi tablet TAKE tablet TAKE tablet ty ONE (1) ONE (1) TAKE ONE Hospi ta TABLET(S) TABLET(S) (1) l BY MOUTH BY MOUTH TABLET(S) Cl inics EVERY EVERY BY MOUTH MORNING. MORNING. EVERY MORNING. Mucinex Mucinex No Mucinex [place] Communi ty [facility] Clin[facility] mupirocin 2 mupirocin 2 No mupirocin [place] % topical % topical 2 % Commu [...] DAY WITH MEALS. omeprazole omeprazole No omeprazole [place] 20 mg 20 mg 20 mg Communi capsule,del capsule,del capsule,de ty ayed ayed layed Hospita release release release l Take 1 Take 1 Take 1 Clinics capsule capsule capsule every day every day every day by oral by oral by oral route for route for route for 90 days. 90 days. 90 days. One A Day One A Day No One A Day [place] Vitamin Vitamin Vitamin Commun i Daily Daily Daily ty [facility]ospita l Clinics Probiotic Probiotic No Probiotic [place] [facility] spironolact spironolact No spironolac [place] one 25 mg one 25 mg tone 25 mg Communi tablet TAKE tablet TAKE tablet ty ONE (1) ONE (1) TAKE ONE Hospi ta TABLET(S) TABLET(S) (1) l BY MOUTH BY MOUTH TABLET(S) Cl inics ONCE A DAY. ONCE A DAY. BY MOUTH ONCE A DAY. tramadol 50 tramadol 50 No tramadol [place] mg tablet mg tablet 50 mg Comm uni TAKE ONE TAKE ONE tablet ty (1) (1) TAKE ONE Hospita TABLET(S) TABLET(S) (1) l BY MOUTH BY MOUTH TABLET(S) Cl inics EVERY SIX EVERY SIX BY MOUTH HOURS HOURS EVERY SIX NEEDED FOR NEEDED FOR HOURS SEVERE SEVERE NEEDED FOR PAIN. PAIN. SEVERE PAIN. turmeric turmeric [facility] Tylenol 325 Tylenol 325 No 2 Q6H Tylenol [place] mg tablet mg tablet 325 mg Com clarke Take 2 Take 2 tablet ty tablets tablets Take 2 Hospita every 6 every 6 tablets l hours by hours by every 6 Clin ics oral route oral route hours by as needed. as needed. oral route as needed. Vitamin D3 Vitamin D3 No Vitamin D3 [place] 5000 iu 5000 iu 5000 iu Commun i daily daily daily [facility] Zyrtec Zyrtec No Zyrtec [place] [facility] atorvastati atorvastati No atorvastat [place] n 20 mg n 20 mg in 20 mg Commu ni tablet TAKE tablet TAKE tablet ty ONE (1) ONE (1) TAKE ONE Hospi ta TABLET(S) TABLET(S) (1) l BY MOUTH BY MOUTH TABLET(S) Cl inics ONCE A DAY. ONCE A DAY. BY MOUTH ONCE A DAY. Calcium 600 Calcium 600 No Calcium [place] daily daily 600 daily [facility] carvedilol carvedilol No carvedilol [place] 25 mg 25 mg 25 mg Communi tablet TAKE tablet TAKE tablet ty ONE (1) ONE (1) TAKE ONE Hospi ta TABLET(S) TABLET(S) (1) l BY MOUTH BY MOUTH TABLET(S) Cl inics TWICE A TWICE A BY MOUTH DAY. DAY. TWICE A DAY. cyanocobala cyanocobala No 1mL cyanocobal [place] min (vit min (vit josue (vit Co mmuni B-12) 1,000 B-12) 1,000 B-12) ty mcg/mL mcg/mL 1,000 Hospita injection injection mcg/mL l solution solution injection Cl inics Inject 1 mL Inject 1 mL solution every month every month Inject 1 by by mL every subcutaneou subcutaneou month by s route. s route. subcutaneo us route. furosemide furosemide No furosemide [place] 80 mg 80 mg 80 mg Communi tablet TAKE tablet TAKE tablet ty ONE (1) ONE (1) TAKE ONE Hospi ta TABLET(S) TABLET(S) (1) l BY MOUTH BY MOUTH TABLET(S) Cl inics ONCE A DAY. ONCE A DAY. BY MOUTH ONCE A DAY. hydrocodone hydrocodone No hydrocodon [place] 5 5 e 5 Communi mg-acetamin mg-acetamin [...] 40 Kenalog 40 No 2mL Kenalog 40 [place] mg/mL mg/mL mg/mL Communi suspension suspension suspension ty for for for Hospita injection injection injection l Take 2 mL Take 2 mL Take 2 mL Clinics by by by injection injection injection route. route. route. losartan 50 losartan 50 No losartan [place] mg tablet mg tablet 50 mg Comm uni TAKE ONE TAKE ONE tablet ty (1) (1) TAKE ONE Hospita TABLET(S) TABLET(S) (1) l BY MOUTH BY MOUTH TABLET(S) Cl inics ONCE A DAY. ONCE A DAY. BY MOUTH ONCE A DAY. montelukast montelukast No montelukas [place] 10 mg 10 mg t 10 mg Communi tablet TAKE tablet TAKE tablet ty ONE (1) ONE (1) TAKE ONE Hospi ta TABLET(S) TABLET(S) (1) l BY MOUTH BY MOUTH TABLET(S) Cl inics EVERY EVERY BY MOUTH MORNING. MORNING. EVERY MORNING. Mucinex Mucinex No Mucinex [place] Communi ty [facility] mupirocin 2 mupirocin 2 No mupirocin [place] % topical % topical 2 % Commu [...] DAY WITH MEALS. omeprazole omeprazole No omeprazole [place] 20 mg 20 mg 20 mg Communi capsule,del capsule,del capsule,de ty ayed ayed layed Hospita release release release l TAKE ONE TAKE ONE TAKE ONE Cli nics (1) (1) (1) CAPSULE(S) CAPSULE(S) CAPSULE(S) BY MOUTH BY MOUTH BY MOUTH ONCE A DAY. ONCE A DAY. ONCE A DAY. One A Day One A Day No One A Day [place] Vitamin Vitamin Vitamin Commun i Daily Daily Daily ty [facility] Probiotic Probiotic No Probiotic [place] Communi ty [facility] spironolact spironolact No spironolac [place] one 25 mg one 25 mg tone 25 mg Communi tablet TAKE tablet TAKE tablet ty ONE (1) ONE (1) TAKE ONE Hospi ta TABLET(S) TABLET(S) (1) l BY MOUTH BY MOUTH TABLET(S) Cl inics ONCE A DAY. ONCE A DAY. BY MOUTH ONCE A DAY. tramadol 50 tramadol 50 No tramadol [place] mg tablet mg tablet 50 mg Comm uni TAKE ONE TAKE ONE tablet ty (1) (1) TAKE ONE Hospita TABLET(S) TABLET(S) (1) l BY MOUTH BY MOUTH TABLET(S) Cl inics EVERY SIX EVERY SIX BY MOUTH HOURS HOURS EVERY SIX NEEDED FOR NEEDED FOR HOURS SEVERE SEVERE NEEDED FOR PAIN. PAIN. SEVERE PAIN. turmeric turmeric No turmeric Swe margy Communi ty [facility] Tylenol 325 Tylenol 325 No 2 Q6H Tylenol [place] mg tablet mg tablet 325 mg Com clarke Take 2 Take 2 tablet ty tablets tablets Take 2 Hospita every 6 every 6 tablets l hours by hours by every 6 Clin ics oral route oral route hours by as needed. as needed. oral route as needed. Vitamin D3 Vitamin D3 No Vitamin D3 [place] 5000 iu 5000 iu 5000 iu Commun i daily daily daily ty [facility] Zyrtec Zyrtec No Zyrtec [place] Communi ty [facility] atorvastati atorvastati No atorvastat [place] n 20 mg n 20 mg in 20 mg Commu ni tablet TAKE tablet TAKE tablet ty ONE (1) ONE (1) TAKE ONE Hospi ta TABLET(S) TABLET(S) (1) l BY MOUTH BY MOUTH TABLET(S) Cl inics ONCE A DAY. ONCE A DAY. BY MOUTH ONCE A DAY. Calcium 600 Calcium 600 No Calcium [place] daily daily 600 daily Communi ty [facility] carvedilol carvedilol No carvedilol [place] 25 mg 25 mg 25 mg Communi tablet TAKE tablet TAKE tablet ty ONE (1) ONE (1) TAKE ONE Hospi ta TABLET(S) TABLET(S) (1) l BY MOUTH BY MOUTH TABLET(S) Cl inics TWICE A TWICE A BY MOUTH DAY. DAY. TWICE A DAY. cyanocobala cyanocobala No 1mL cyanocobal [place] min (vit min (vit josue (vit Co mmuni B-12) 1,000 B-12) 1,000 B-12) ty mcg/mL mcg/mL 1,000 Hospita injection injection mcg/mL l solution solution injection Cl inics Inject 1 mL Inject 1 mL solution every month every month Inject 1 by by mL every subcutaneou subcutaneou month by s route. s route. subcutaneo us route. furosemide furosemide No furosemide [place] 80 mg 80 mg 80 mg Communi tablet TAKE tablet TAKE tablet ty ONE (1) ONE (1) TAKE ONE Hospi ta TABLET(S) TABLET(S) (1) l BY MOUTH BY MOUTH TABLET(S) Cl inics ONCE A DAY. ONCE A DAY. BY MOUTH ONCE A DAY. hydrocodone hydrocodone No hydrocodon [place] 5 5 e 5 Communi mg-acetamin mg-acetamin [...] DAY. losartan 50 losartan 50 No losartan [place] mg tablet mg tablet 50 mg Comm uni TAKE ONE TAKE ONE tablet ty (1) (1) TAKE ONE Hospita TABLET(S) TABLET(S) (1) l BY MOUTH BY MOUTH TABLET(S) Cl inics ONCE A DAY. ONCE A DAY. BY MOUTH ONCE A DAY. montelukast montelukast No montelukas [place] 10 mg 10 mg t 10 mg Communi tablet TAKE tablet TAKE tablet ty ONE (1) ONE (1) TAKE ONE Hospi ta TABLET(S) TABLET(S) (1) l BY MOUTH BY MOUTH TABLET(S) Cl inics EVERY EVERY BY MOUTH MORNING. MORNING. EVERY MORNING. Mucinex Mucinex No Mucinex [place] [facility] ty [facility] l Clinics mupirocin 2 mupirocin 2 No mupirocin [place] % topical % topical 2 % Commu [...] DAY WITH MEALS. omeprazole omeprazole No omeprazole [place] 20 mg 20 mg 20 mg Communi capsule,del capsule,del capsule,de ty ayed ayed layed Hospita release release release l TAKE ONE TAKE ONE TAKE ONE Cli nics (1) (1) (1) CAPSULE(S) CAPSULE(S) CAPSULE(S) BY MOUTH BY MOUTH BY MOUTH ONCE A DAY. ONCE A DAY. ONCE A DAY. One A Day One A Day No One A Day [place] Vitamin Vitamin Vitamin Commun i Daily Daily Daily [facility] prednisone prednisone No 1 Q1D prednisone [place] 10 mg 10 mg 10 mg Communi tablet Take tablet Take tablet ty 1 tablet 1 tablet Take 1 Hospi ta every day every day tablet l by oral by oral every day Clin ics route. route. by oral route. Probiotic Probiotic No Probiotic [place] [facility]i [facility] spironolact spironolact No spironolac [place] one 25 mg one 25 mg tone 25 mg Communi tablet TAKE tablet TAKE tablet ty ONE (1) ONE (1) TAKE ONE Hospi ta TABLET(S) TABLET(S) (1) l BY MOUTH BY MOUTH TABLET(S) Cl inics ONCE A DAY. ONCE A DAY. BY MOUTH ONCE A DAY. tramadol 50 tramadol 50 No tramadol [place] mg tablet mg tablet 50 mg Comm uni TAKE ONE TAKE ONE tablet ty (1) (1) TAKE ONE Hospita TABLET(S) TABLET(S) (1) l BY MOUTH BY MOUTH TABLET(S) Cl inics EVERY SIX EVERY SIX BY MOUTH HOURS HOURS EVERY SIX NEEDED FOR NEEDED FOR HOURS SEVERE SEVERE NEEDED FOR PAIN. PAIN. SEVERE PAIN. turmeric turmeric No turmeric Swe margy Communi [facility] Tylenol 325 Tylenol 325 No 2 Q6H Tylenol [place] mg tablet mg tablet 325 mg Com clarke Take 2 Take 2 tablet ty tablets tablets Take 2 Hospita every 6 every 6 tablets l hours by hours by every 6 Clin ics oral route oral route hours by as needed. as needed. oral route as needed. Vitamin D3 Vitamin D3 No Vitamin D3 [facility] 5000 iu 5000 iu 5000 iu Commun i daily daily daily [facility] Zyrtec Zyrtec No Zyrtec [place] [facility]i [facility] atorvastati atorvastati No atorvastat [place] n 20 mg n 20 mg in 20 mg Commu ni tablet TAKE tablet TAKE tablet ty ONE (1) ONE (1) TAKE ONE Hospi ta TABLET(S) TABLET(S) (1) l BY MOUTH BY MOUTH TABLET(S) Cl inics ONCE A DAY. ONCE A DAY. BY MOUTH ONCE A DAY. Calcium 600 Calcium 600 No Calcium [place] daily daily 600 daily [facility] carvedilol No carvedilol [place] 25 mg 25 mg 25 mg Communi tablet TAKE tablet TAKE tablet ty ONE (1) ONE (1) TAKE ONE Hospi ta TABLET(S) TABLET(S) (1) l BY MOUTH BY MOUTH TABLET(S) Cl inics TWICE A TWICE A BY MOUTH DAY. DAY. TWICE A DAY. furosemide furosemide No furosemide [place] 80 mg 80 mg 80 mg Communi tablet TAKE tablet TAKE tablet ty ONE (1) ONE (1) TAKE ONE Hospi ta TABLET(S) TABLET(S) (1) l BY MOUTH BY MOUTH TABLET(S) Cl inics ONCE A DAY. ONCE A DAY. BY MOUTH ONCE A DAY. hydrocodone hydrocodone No hydrocodon [facility] 5 5 e 5 Communi mg-acetamin mg-acetamin [...] DAY. losartan 50 losartan 50 No losartan [facility] mg tablet mg tablet 50 mg Comm uni TAKE ONE TAKE ONE tablet ty (1) (1) TAKE ONE Hospita TABLET(S) TABLET(S) (1) l BY MOUTH BY MOUTH TABLET(S) Cl inics ONCE A DAY. ONCE A DAY. BY MOUTH ONCE A DAY. montelukast montelukast No montelukas [facility] 10 mg 10 mg t 10 mg Communi tablet TAKE tablet TAKE tablet ty ONE (1) ONE (1) TAKE ONE Hospi ta TABLET(S) TABLET(S) (1) l BY MOUTH BY MOUTH TABLET(S) Cl inics EVERY EVERY BY MOUTH MORNING. MORNING. EVERY MORNING. Mucinex Mucinex No Mucinex [place] Communi ty [facility] omeprazole omeprazole No omeprazole [facility] 20 mg 20 mg 20 mg Communi capsule,del capsule,del capsule,de ty ayed ayed layed Hospita release release release l TAKE ONE TAKE ONE TAKE ONE Cli nics (1) (1) (1) CAPSULE(S) CAPSULE(S) CAPSULE(S) BY MOUTH BY MOUTH BY MOUTH ONCE A DAY. ONCE A DAY. ONCE A DAY. One A Day One A Day No One A Day [place] Vitamin Vitamin Vitamin Commun i Daily Daily Daily ty [facility] Probiotic Probiotic No Probiotic [place] Communi ty [facility] spironolact spironolact No spironolac [place] one 25 mg one 25 mg tone 25 mg Communi tablet TAKE tablet TAKE tablet ty ONE (1) ONE (1) TAKE ONE Hospi ta TABLET(S) TABLET(S) (1) l BY MOUTH BY MOUTH TABLET(S) Cl inics ONCE A DAY. ONCE A DAY. BY MOUTH ONCE A DAY. tramadol 50 tramadol 50 No tramadol [facility] mg tablet mg tablet 50 mg Comm uni TAKE ONE TAKE ONE tablet ty (1) (1) TAKE ONE Hospita TABLET(S) TABLET(S) (1) l BY MOUTH BY MOUTH TABLET(S) Cl inics EVERY SIX EVERY SIX BY MOUTH HOURS HOURS EVERY SIX NEEDED FOR NEEDED FOR HOURS SEVERE SEVERE NEEDED FOR PAIN. PAIN. SEVERE PAIN. turmeric turmeric No turmeric Swe margy Communi [facility] Tylenol 325 Tylenol 325 No 2 Q6H Tylenol [place] mg tablet mg tablet 325 mg Com clarke Take 2 Take 2 tablet ty tablets tablets Take 2 Hospita every 6 every 6 tablets l hours by hours by every 6 Clin ics oral route oral route hours by as needed. as needed. oral route as needed. Vitamin D3 Vitamin D3 No Vitamin D3 [facility] 5000 iu 5000 iu 5000 iu Commun i daily daily daily ty [facility] Zyrtec Zyrtec No Zyrtec [place] Communi ty [facility] atorvastati atorvastati No atorvastat [place] n 20 mg n 20 mg in 20 mg Commu ni tablet TAKE tablet TAKE tablet ty ONE (1) ONE (1) TAKE ONE Hospi ta TABLET(S) TABLET(S) (1) l BY MOUTH BY MOUTH TABLET(S) Cl inics ONCE A DAY. ONCE A DAY. BY MOUTH ONCE A DAY. Calcium 600 Calcium 600 No Calcium [place] daily daily 600 daily Communi ty [facility] Clinics carvedilol carvedilol No carvedilol [facility] 25 mg 25 mg 25 mg Communi tablet TAKE tablet TAKE tablet ty ONE (1) ONE (1) TAKE ONE Hospi ta TABLET(S) TABLET(S) (1) l BY MOUTH BY MOUTH TABLET(S) Cl inics TWICE A TWICE A BY MOUTH DAY. DAY. TWICE A DAY. furosemide furosemide No furosemide [facility] 80 mg 80 mg 80 mg [facility] tablet TAKE tablet TAKE tablet ty ONE (1) ONE (1) TAKE ONE Hospi ta TABLET(S) TABLET(S) (1) l BY MOUTH BY MOUTH TABLET(S) Cl inics ONCE A DAY. ONCE A DAY. BY MOUTH ONCE A DAY. hydrocodone hydrocodone No hydrocodon [facility] 5 5 e 5 [facility]i mg-acetamin mg-acetamin [...] 40 Kenalog 40 No 2mL Kenalog 40 [facility] mg/mL mg/mL mg/mL [facility] suspension suspension suspension ty for for for Hospita injection injection injection l Take 2 mL Take 2 mL Take 2 mL Clinics by by by injection injection injection route. route. route. losartan 50 losartan 50 No losartan [facility] mg tablet mg tablet 50 mg Comm uni TAKE ONE TAKE ONE tablet ty (1) (1) TAKE ONE Hospita TABLET(S) TABLET(S) (1) l BY MOUTH BY MOUTH TABLET(S) Cl inics ONCE A DAY. ONCE A DAY. BY MOUTH ONCE A DAY. montelukast montelukast No montelukas [facility] 10 mg 10 mg t 10 mg Communi tablet TAKE tablet TAKE tablet ty ONE (1) ONE (1) TAKE ONE Hospi ta TABLET(S) TABLET(S) (1) l BY MOUTH BY MOUTH TABLET(S) Cl inics EVERY EVERY BY MOUTH MORNING. MORNING. EVERY MORNING. Mucinex Mucinex No Mucinex [facility] omeprazole omeprazole No omeprazole [facility] 20 mg 20 mg 20 mg Communi capsule,del capsule,del capsule,de ty ayed ayed layed Hospita release release release l TAKE ONE TAKE ONE TAKE ONE Cli nics (1) (1) (1) CAPSULE(S) CAPSULE(S) CAPSULE(S) BY MOUTH BY MOUTH BY MOUTH ONCE A DAY. ONCE A DAY. ONCE A DAY. One A Day One A Day No One A Day [facility] Vitamin Vitamin Vitamin Commun i Daily Daily Daily ty [facility] Probiotic Probiotic No Probiotic [facility] spironolact spironolact No spironolac [facility] one 25 mg one 25 mg tone 25 mg Communi tablet TAKE tablet TAKE tablet ty ONE (1) ONE (1) TAKE ONE Hospi ta TABLET(S) TABLET(S) (1) l BY MOUTH BY MOUTH TABLET(S) Cl inics ONCE A DAY. ONCE A DAY. BY MOUTH ONCE A DAY. tramadol 50 tramadol 50 No tramadol [facility] mg tablet mg tablet 50 mg Comm uni TAKE ONE TAKE ONE tablet ty (1) (1) TAKE ONE Hospita TABLET(S) TABLET(S) (1) l BY MOUTH BY MOUTH TABLET(S) Cl inics EVERY SIX EVERY SIX BY MOUTH HOURS HOURS EVERY SIX NEEDED FOR NEEDED FOR HOURS SEVERE SEVERE NEEDED FOR PAIN. PAIN. SEVERE PAIN. turmeric turmeric No turmeric [facility] Tylenol 325 Tylenol 325 No 2 Q6H Tylenol [facility] mg tablet mg tablet 325 mg Com clarke Take 2 Take 2 tablet ty tablets tablets Take 2 Hospita every 6 every 6 tablets l hours by hours by every 6 Clin ics oral route oral route hours by as needed. as needed. oral route as needed. Vitamin D3 Vitamin D3 No Vitamin D3 [facility] 5000 iu 5000 iu 5000 iu Commun i daily daily daily [facility] Zyrtec Zyrtec No Zyrtec [facility] atorvastati atorvastati No atorvastat [facility] n 20 mg n 20 mg in 20 mg Commu ni tablet TAKE tablet TAKE tablet ty ONE (1) ONE (1) TAKE ONE Hospi ta TABLET(S) TABLET(S) (1) l BY MOUTH BY MOUTH TABLET(S) Cl inics ONCE A DAY. ONCE A DAY. BY MOUTH ONCE A DAY. biotin otc biotin otc No biotin otc [facility] 10,000 10,000 10,000 Communi daily. daily. daily. ty [facility] Calcium 600 Calcium 600 No Calcium [facility] daily daily 600 daily Communi ty [facility] carvedilol carvedilol No carvedilol [facility] 25 mg 25 mg 25 mg [facility] tablet TAKE tablet TAKE tablet ty ONE (1) ONE (1) TAKE ONE Hospi ta TABLET(S) TABLET(S) (1) l BY MOUTH BY MOUTH TABLET(S) Cl inics TWICE A TWICE A BY MOUTH DAY. DAY. TWICE A DAY. furosemide furosemide No furosemide [facility] 80 mg 80 mg 80 mg Communi tablet TAKE tablet TAKE tablet ty ONE (1) ONE (1) TAKE ONE Hospi ta TABLET(S) TABLET(S) (1) l BY MOUTH BY MOUTH TABLET(S) Cl inics ONCE A DAY. ONCE A DAY. BY MOUTH ONCE A DAY. hydrocodone hydrocodone No hydrocodon [facility] 5 5 e 5 Communi mg-acetamin mg-acetamin [...] DAY. losartan 50 losartan 50 No losartan [facility] mg tablet mg tablet 50 mg Comm uni TAKE ONE TAKE ONE tablet ty (1) (1) TAKE ONE Hospita TABLET(S) TABLET(S) (1) l BY MOUTH BY MOUTH TABLET(S) Cl inics ONCE A DAY. ONCE A DAY. BY MOUTH ONCE A DAY. meloxicam meloxicam No meloxicam [facility] 7.5 mg 7.5 mg 7.5 mg Communi tablet TAKE tablet TAKE tablet ty ONE (1) ONE (1) TAKE ONE Hospi ta TABLET(S) TABLET(S) (1) l BY MOUTH BY MOUTH TABLET(S) Cl inics ONCE A DAY. ONCE A DAY. BY MOUTH ONCE A DAY. montelukast montelukast No montelukas [facility] 10 mg 10 mg t 10 mg Communi tablet TAKE tablet TAKE tablet ty ONE (1) ONE (1) TAKE ONE Hospi ta TABLET(S) TABLET(S) (1) l BY MOUTH BY MOUTH TABLET(S) Cl inics EVERY EVERY BY MOUTH MORNING. MORNING. EVERY MORNING. Mucinex Mucinex No Mucinex [facility] Commun[facility] ty [facility] omeprazole omeprazole No omeprazole [facility] 20 mg 20 mg 20 mg Communi capsule,del capsule,del capsule,de ty ayed ayed layed Hospita release release release l TAKE ONE TAKE ONE TAKE ONE Cli nics (1) (1) (1) CAPSULE(S) CAPSULE(S) CAPSULE(S) BY MOUTH BY MOUTH BY MOUTH ONCE A DAY. ONCE A DAY. ONCE A DAY. One A Day One A Day No One A Day [facility] Vitamin Vitamin Vitamin Commun i Daily Daily Daily ty [facility] Probiotic Probiotic No Probiotic [facility] spironolact spironolact No spironolac [facility] one 25 mg one 25 mg tone 25 mg Communi tablet TAKE tablet TAKE tablet ty ONE (1) ONE (1) TAKE ONE Hospi ta TABLET(S) TABLET(S) (1) l BY MOUTH BY MOUTH TABLET(S) Cl inics ONCE A DAY. ONCE A DAY. BY MOUTH ONCE A DAY. tramadol 50 tramadol 50 No tramadol [facility] mg tablet mg tablet 50 mg Comm uni TAKE ONE TAKE ONE tablet ty (1) (1) TAKE ONE Hospita TABLET(S) TABLET(S) (1) l BY MOUTH BY MOUTH TABLET(S) Cl inics EVERY SIX EVERY SIX BY MOUTH HOURS HOURS EVERY SIX NEEDED FOR NEEDED FOR HOURS SEVERE SEVERE NEEDED FOR PAIN. PAIN. SEVERE PAIN. turmeric turmeric No turmeric [facility] Tylenol 325 Tylenol 325 No 2 Q6H Tylenol [facility] mg tablet mg tablet 325 mg Com clarke Take 2 Take 2 tablet ty tablets tablets Take 2 Hospita every 6 every 6 tablets l hours by hours by every 6 Clin ics oral route oral route hours by as needed. as needed. oral route as needed. Vitamin D3 Vitamin D3 No Vitamin D3 [facility] 5000 iu 5000 iu 5000 iu Commun i daily daily daily ty [facility] Zyrtec Zyrtec No Zyrtec [facility] Commun[facility] ty [facility] atorvastati atorvastati No atorvastat [facility] n 20 mg n 20 mg in 20 mg Commu ni tablet TAKE tablet TAKE tablet ty ONE (1) ONE (1) TAKE ONE Hospi ta TABLET(S) TABLET(S) (1) l BY MOUTH BY MOUTH TABLET(S) Cl inics ONCE A DAY. ONCE A DAY. BY MOUTH ONCE A DAY. biotin otc biotin otc No biotin otc [facility] 10,000 10,000 10,000 Communi daily. daily. daily. [facility] Calcium 600 Calcium 600 No Calcium [facility] daily daily 600 daily Communi [facility] carvedilol carvedilol No carvedilol [facility] 25 mg 25 mg 25 mg Communi tablet TAKE tablet TAKE tablet ty ONE (1) ONE (1) TAKE ONE Hospi ta TABLET(S) TABLET(S) (1) l BY MOUTH BY MOUTH TABLET(S) Cl inics TWICE A TWICE A BY MOUTH DAY. DAY. TWICE A DAY. furosemide furosemide No furosemide [facility] 80 mg 80 mg 80 mg Communi tablet TAKE tablet TAKE tablet ty ONE (1) ONE (1) TAKE ONE Hospi ta TABLET(S) TABLET(S) (1) l BY MOUTH BY MOUTH TABLET(S) Cl inics ONCE A DAY. ONCE A DAY. BY MOUTH ONCE A DAY. hydrocodone hydrocodone No hydrocodon [facility] 5 5 e 5 Communi mg-acetamin mg-acetamin [...] DAY. losartan 50 losartan 50 No losartan [facility] mg tablet mg tablet 50 mg Comm uni TAKE ONE TAKE ONE tablet ty (1) (1) TAKE ONE Hospita TABLET(S) TABLET(S) (1) l BY MOUTH BY MOUTH TABLET(S) Cl inics ONCE A DAY. ONCE A DAY. BY MOUTH ONCE A DAY. meloxicam meloxicam No meloxicam [facility] 7.5 mg 7.5 mg 7.5 mg Communi tablet TAKE tablet TAKE tablet ty ONE (1) ONE (1) TAKE ONE Hospi ta TABLET(S) TABLET(S) (1) l BY MOUTH BY MOUTH TABLET(S) Cl inics ONCE A DAY. ONCE A DAY. BY MOUTH ONCE A DAY. montelukast montelukast No montelukas [facility] 10 mg 10 mg t 10 mg Communi tablet TAKE tablet TAKE tablet ty ONE (1) ONE (1) TAKE ONE Hospi ta TABLET(S) TABLET(S) (1) l BY MOUTH BY MOUTH TABLET(S) Cl inics EVERY EVERY BY MOUTH MORNING. MORNING. EVERY MORNING. Mucinex Mucinex No Mucinex [facility] Commun[facility] ty [facility] naproxen naproxen No naproxen [facility] 500 mg 500 mg 500 mg Communi tablet TAKE tablet TAKE tablet ty ONE (1) ONE (1) TAKE ONE Hospi ta TABLET(S) TABLET(S) (1) l BY MOUTH BY MOUTH TABLET(S) Cl inics TWICE A DAY TWICE A DAY BY MOUTH WITH MEALS. WITH MEALS. TWICE A DAY WITH MEALS. omeprazole omeprazole No omeprazole [facility] 20 mg 20 mg 20 mg Communi capsule,del capsule,del capsule,de ty ayed ayed layed Hospita release release release l TAKE ONE TAKE ONE TAKE ONE Cli nics (1) (1) (1) CAPSULE(S) CAPSULE(S) CAPSULE(S) BY MOUTH BY MOUTH BY MOUTH ONCE A DAY. ONCE A DAY. ONCE A DAY. One A Day One A Day No One A Day [facility] Vitamin Vitamin Vitamin Commun i Daily Daily Daily ty [facility] Probiotic Probiotic No Probiotic [facility] Communi ty [facility] spironolact spironolact No spironolac [facility] one 25 mg one 25 mg tone 25 mg Communi tablet TAKE tablet TAKE tablet ty ONE (1) ONE (1) TAKE ONE Hospi ta TABLET(S) TABLET(S) (1) l BY MOUTH BY MOUTH TABLET(S) Cl inics ONCE A DAY. ONCE A DAY. BY MOUTH ONCE A DAY. tramadol 50 tramadol 50 No tramadol [facility] mg tablet mg tablet 50 mg Comm uni TAKE ONE TAKE ONE tablet ty (1) (1) TAKE ONE Hospita TABLET(S) TABLET(S) (1) l BY MOUTH BY MOUTH TABLET(S) Cl inics EVERY SIX EVERY SIX BY MOUTH HOURS HOURS EVERY SIX NEEDED FOR NEEDED FOR HOURS SEVERE SEVERE NEEDED FOR PAIN. PAIN. SEVERE PAIN. turmeric turmeric No turmeric [facility] Tylenol 325 Tylenol 325 No 2 Q6H Tylenol [facility] mg tablet mg tablet 325 mg Com clarke Take 2 Take 2 tablet ty tablets tablets Take 2 Hospita every 6 every 6 tablets l hours by hours by every 6 Clin ics oral route oral route hours by as needed. as needed. oral route as needed. Vitamin D3 Vitamin D3 No Vitamin D3 [facility] 5000 iu 5000 iu 5000 iu Commun i daily daily daily ty [facility] Zyrtec Zyrtec No Zyrtec [facility] Communi ty [facility] Immunizations Ordered Immunization Filled Immunization Date Status Commen ts Source Name Name zoster recombinant zoster recombinant 2021-11-01 Completed [facility] 00:00:00 [facility] zoster recombinant zoster recombinant 2021-11-01 Completed [facility] 00:00:00 [facility] zoster recombinant zoster recombinant 2021-11-01 Completed [facility] 00:00:00 [facility] zoster recombinant zoster recombinant 2021-11-01 Completed [facility] 00:00:00 [facility] zoster recombinant zoster recombinant 2021-11-01 Completed [facility] 00:00:00 [facility] zoster recombinant zoster recombinant 2021-11-01 Completed [facility] 00:00:00 [facility] zoster recombinant zoster recombinant 2021-11-01 Completed [facility] 00:00:00 [facility] zoster recombinant zoster recombinant 2021-11-01 Completed [facility] 00:00:00 [facility] zoster recombinant zoster recombinant 2021-11-01 Completed [facility] 00:00:00 [facility] zoster recombinant zoster recombinant 2021-11-01 Completed [facility] 00:00:00 [facility] zoster recombinant zoster recombinant 2021-11-01 Completed [facility] 00:00:00 [facility] zoster recombinant zoster recombinant 2021-11-01 Completed [facility] 00:00:[facility] zoster recombinant zoster recombinant 2021-11-01 Completed [facility] 00:00:00 [facility] zoster recombinant zoster recombinant 2021-11-01 Completed [facility] 00:00:[address] [facility] COVID-19 (SARS-COV-2) COVID-19 2021-06-02 Completed [facility] vaccine, unspecified (SARS-COV-2) 00:00:00 [facility] vaccine[facility] unspecified [facility] Clin[facility] COVID-19 (SARS-COV-2) COVID-19 2021-06-02 Completed [facility] vaccine, unspecified (SARS-COV-2) 00:00:00 [facility] vaccine, unspecified [facility] Clin[facility] SARS-COV-2 (COVID-19) SARS-COV-2 2021-06-02 Completed [facility] vaccine, UNSPECIFIED (COVID-19) vaccine, 00:00:[facility] SARS-COV-2 (COVID-19) SARS-COV-2 2021-06-02 Completed [facility] vaccine, UNSPECIFIED (COVID-19) vaccine, 00:00[facility]00 [facility]-19 (SARS-COV-2) COVID-19 2021-06-02 Completed [...] Hosp ital Clinics Tdap Tdap 2017-12-18 Completed [facility] 00:[facility] Tdap Tdap 2017-12-18 Completed [facility] 00:[facility] Tdap Tdap 2017-12-18 Completed [facility] 00:00:00 [facility] Tdap Tdap 2017-12-18 Completed [facility] 00:00:00 [facility] Tdap Tdap 2017-12-18 Completed [facility] 00:00:00 [facility] Tdap Tdap 2017-12-18 Completed [facility] 00:00:00 [facility] Tdap Tdap 2017-12-18 Completed [facility] 00:00:00 [facility] Tdap Tdap 2017-12-18 Completed [facility] 00:00:00 [facility] Tdap Tdap 2017-12-18 Completed [facility] 00:[facility] Tdap Tdap 2017-12-18 Completed [facility] 00:[facility] Tdap Tdap 2017-12-18 Completed [facility] 00:[facility] Tdap Tdap 2017-12-18 Completed [facility] 00:[facility] Tdap Tdap 2017-12-18 Completed [facility] 00:[facility] Tdap Tdap 2017-12-18 Completed [facility] 00:[facility] Tdap Tdap 2017-12-18 Completed [facility] 00:[facility] Tdap Tdap 2017-12-18 Completed [facility] 00:00[facility] Tdap Tdap 2017-12-18 Completed [facility] 00:[facility] Tdap Tdap 2017-12-18 Completed [facility] 00:00[facility] Tdap Tdap 2017-12-18 Completed [facility] 00:[facility] Tdap Tdap 2017-12-18 Completed [facility] 00:[facility] pneumococcal pneumococcal 2015-01-22 Completed [facility] polysaccharide PPV23 polysaccharide PPV23 00:00:00 [facility] pneumococcal pneumococcal 2015-01-22 Completed [facility] polysaccharide PPV23 polysaccharide PPV23 00:00:00 [facility] pneumococcal pneumococcal 2015-01-22 Completed [facility] polysaccharide PPV23 polysaccharide PPV23 00:00:00 [facility] pneumococcal pneumococcal 2015-01-22 Completed [facility] polysaccharide PPV23 polysaccharide PPV23 00:00:00 [facility] pneumococcal pneumococcal 2015-01-22 Completed [facility] polysaccharide PPV23 polysaccharide PPV23 00:00:00 [facility] pneumococcal pneumococcal 2015-01-22 Completed [facility] polysaccharide PPV23 polysaccharide PPV23 00:00:00 [facility] pneumococcal pneumococcal 2015-01-22 Completed [facility] polysaccharide PPV23 polysaccharide PPV23 00:00:00 [facility] pneumococcal pneumococcal 2015-01-22 Completed [facility] polysaccharide PPV23 polysaccharide PPV23 00:00:00 [facility] pneumococcal pneumococcal 2015-01-22 Completed [facility] polysaccharide PPV23 polysaccharide PPV23 00:00:00 [facility] pneumococcal pneumococcal 2015-01-22 Completed [facility] polysaccharide PPV23 polysaccharide PPV23 00:00:00 [facility] pneumococcal pneumococcal 2015-01-22 Completed [facility] polysaccharide PPV23 polysaccharide PPV23 00:00:00 [facility] pneumococcal pneumococcal 2015-01-22 Completed [facility] polysaccharide PPV23 polysaccharide PPV23 00:00:00 [facility] pneumococcal pneumococcal 2015-01-22 Completed [facility] polysaccharide PPV23 polysaccharide PPV23 00:00:00 [facility] pneumococcal pneumococcal 2015-01-22 Completed [facility] polysaccharide PPV23 polysaccharide PPV23 00:00:00 [facility] pneumococcal pneumococcal 2015-01-22 Completed [facility] polysaccharide PPV23 polysaccharide PPV23 00:00:00 [facility] pneumococcal pneumococcal 2015-01-22 Completed [facility] polysaccharide PPV23 polysaccharide PPV23 00:00:00 [facility] pneumococcal pneumococcal 2015-01-22 Completed [facility] polysaccharide PPV23 polysaccharide PPV23 00:00:00 [facility] pneumococcal pneumococcal 2015-01-22 Completed [facility] polysaccharide PPV23 polysaccharide PPV23 00:00:00 [facility] pneumococcal pneumococcal 2013-01-22 Completed [facility] conjugate PCV 13 conjugate PCV 13 00:00:00 [facility] pneumococcal pneumococcal 2013-01-22 Completed [facility] conjugate PCV 13 conjugate PCV 13 00:00:00 [facility] pneumococcal pneumococcal 2013-01-22 Completed [facility] conjugate PCV 13 conjugate PCV 13 00:00:00 [facility] pneumococcal pneumococcal 2013-01-22 Completed [facility] conjugate PCV 13 conjugate PCV 13 00:00:00 [facility] pneumococcal pneumococcal 2013-01-22 Completed [facility] conjugate PCV 13 conjugate PCV 13 00:00:00 [facility] pneumococcal pneumococcal 2013-01-22 Completed [facility] conjugate PCV 13 conjugate PCV 13 00:00:00 [facility] pneumococcal pneumococcal 2013-01-22 Completed [facility] conjugate PCV 13 conjugate PCV 13 00:00:00 [facility] pneumococcal pneumococcal 2013-01-22 Completed [facility] conjugate PCV 13 conjugate PCV 13 00:00:00 [facility] pneumococcal pneumococcal 2013-01-22 Completed [facility] conjugate PCV 13 conjugate PCV 13 00:00:00 [facility] pneumococcal pneumococcal 2013-01-22 Completed [facility] conjugate PCV 13 conjugate PCV 13 00:00:00 [facility] pneumococcal pneumococcal 2013-01-22 Completed [facility] conjugate PCV 13 conjugate PCV 13 00:00:00 [facility] pneumococcal pneumococcal 2013-01-22 Completed [facility] conjugate PCV 13 conjugate PCV 13 00:00:00 [facility] pneumococcal pneumococcal 2013-01-22 Completed [facility] conjugate PCV 13 conjugate PCV 13 00:00:00 [facility] pneumococcal pneumococcal 2013-01-22 Completed [facility] conjugate PCV 13 conjugate PCV 13 00:00:00 [facility] pneumococcal pneumococcal 2013-01-22 Completed [facility] conjugate PCV 13 conjugate PCV 13 00:00:00 [facility] pneumococcal pneumococcal 2013-01-22 Completed [facility] conjugate PCV 13 conjugate PCV 13 00:00:00 [facility] pneumococcal pneumococcal 2013-01-22 Completed [facility] conjugate PCV 13 conjugate PCV 13 00:00:00 [facility] pneumococcal pneumococcal 2013-01-22 Completed [facility] conjugate PCV 13 conjugate PCV 13 00:00:00 [facility] Vital Signs Vital Name Observation Time Observation Value Comments Source BP Diastolic 2022-07-12 00:00:00 78 mm[Hg] [facility] Height 2022-07-12 00:00:00 65.5 [in_i] [facility] BMI (Body Mass 2022-07-12 00:00:00 30.3 kg/m2 [facility] BP Systolic 2022-07-12 00:00:00 138 mm[Hg] [facility] Body Weight 2022-07-12 00:00:00 2956.8 [oz_av] [facility] BP Diastolic 2022-06-28 00:00:00 54 mm[Hg] [facility] Height 2022-06-28 00:00:00 65.5 [in_i] [facility] BMI (Body Mass 2022-06-28 00:00:00 30.3 kg/m2 [facility] BP Systolic 2022-06-28 00:00:00 110 mm[Hg] [facility] Body Weight 2022-06-28 00:00:00 2956.8 [oz_av] [facility] BP Diastolic 2022-06-01 00:00:00 50 mm[Hg] [facility] Height 2022-06-01 00:00:00 65.5 [in_i] [facility] BMI (Body Mass 2022-06-01 00:00:00 30 kg/m2 [facility] s BP Systolic 2022-06-01 00:00:00 104 mm[Hg] [facility] Body Weight 2022-06-01 00:00:00 2928 [oz_av] [facility] BP Diastolic 2022-05-04 00:00:00 64 mm[Hg] [facility] s Height 2022-05-04 00:00:00 65.5 [in_i] [facility] s BMI (Body Mass 2022-05-04 00:00:00 30 kg/m2 [facility] s BP Systolic 2022-05-04 00:00:00 118 mm[Hg] [facility] Body Weight 2022-05-04 00:00:00 2928 [oz_av] [facility] s BP Diastolic 2022-04-27 00:00:00 58 mm[Hg] [facility] Height 2022-04-27 00:00:00 65.5 [in_i] [facility] BMI (Body Mass 2022-04-27 00:00:00 30.7 kg/m2 [facility] BP Systolic 2022-04-27 00:00:00 100 mm[Hg] [facility] Body Weight 2022-04-27 00:00:00 3001.6 [oz_av] [facility] s BP Diastolic 2022-03-07 00:00:00 65 mm[Hg] [facility] Height 2022-03-07 00:00:00 65.5 [in_i] [facility] s BMI (Body Mass 2022-03-07 00:00:00 31.1 kg/m2 [facility] BP Systolic 2022-03-07 00:00:00 100 mm[Hg] [facility] Body Weight 2022-03-07 00:00:00 3033.6 [oz_av] [facility] s BP Diastolic 2022-02-15 00:00:00 80 mm[Hg] [facility] Height 2022-02-15 00:00:00 65.5 [in_i] [facility] BMI (Body Mass 2022-02-15 00:00:00 31.3 kg/m2 [facility] BP Systolic 2022-02-15 00:00:00 100 mm[Hg] [facility] Body Weight 2022-02-15 00:00:00 3059.2 [oz_av] [facility] s BP Diastolic 2021-11-08 00:00:00 84 mm[Hg] [facility] Height 2021-11-08 00:00:00 65.5 [in_i] [facility] s BMI (Body Mass 2021-11-08 00:00:00 30.2 kg/m2 [facility] BP Systolic 2021-11-08 00:00:00 160 mm[Hg] [facility] Body Weight 2021-11-08 00:00:00 2950.4 [oz_av] [facility] s BP Diastolic 2021-08-10 00:00:00 78 mm[Hg] [facility] Height 2021-08-10 00:00:00 65.5 [in_i] [facility] s BP Systolic 2021-08-10 00:00:00 120 mm[Hg] [facility] BP Diastolic 2021-06-22 00:00:00 74 mm[Hg] [facility] Height 2021-06-22 00:00:00 65.5 [in_i] [facility] BMI (Body Mass 2021-06-22 00:00:00 31.1 kg/m2 [facility] BP Systolic 2021-06-22 00:00:00 126 mm[Hg] [facility] Body Weight 2021-06-22 00:00:00 3036.8 [oz_av] [facility] Height 2021-02-01 00:00:00 65.5 [in_i] [facility] BP Diastolic 2021-01-18 00:00:00 72 mm[Hg] [facility] s Height 2021-01-18 00:00:00 65.5 [in_i] [facility] s BMI (Body Mass 2021-01-18 00:00:00 31.1 kg/m2 [facility] BP Systolic 2021-01-18 00:00:00 128 mm[Hg] [facility] Body Weight 2021-01-18 00:00:00 3033.6 [oz_av] [facility] s Body height 2021-09-21 16:37:00 162.6 cm [facility] Body weight 2021-09-21 16:37:00 86.183 kg [facility] BMI 2021-09-21 16:37:00 32.61 kg/m2 [facility] Heart rate 2021-08-15 23:30:00 97 /min [facility] Respiratory rate 2021-08-15 23:30:00 37 /min [facility] Oxygen saturation in 2021-08-15 23:30:00 95 /min [facility] Arterial blood by Pulse oximetry Systolic blood 2021-08-15 23:15:00 136 mm[Hg] Method [facility] pressure Diastolic blood 2021-08-15 23:15:00 64 mm[Hg] [facility] pressure Body temperature 2021-08-15 22:00:00 36.56 [place] [facility] Procedures Procedure Date / Time Performing Clinician Source Performed XR, chest, 2 view 2022-04-27 00:00:00 [facility] Clinics electrocardiogram 2022-04-27 00:00:00 [facility] XR WRIST 3+ VW LEFT 2021-09-21 16:45:25 [facility] XR WRIST 3+ VW LEFT 2021-08-24 17:05:54 [facility] [place] < 1 HOUR 2021-08-16 00:25:54 [facility] [place] AN ELECTIVE SUPRAGLOTTIC 2021-08-15 20:54:28 Mariam Hernandez [facility] AIRWAY Gale ORIF, FRACTURE, RADIUS, 2021-08-15 20:44:00 [facility] DISTAL HC NERVE BLOCK BRACHIAL 2021-08-15 20:25:11 Shail Kwon [facility] CONTINUOU POC GLUCOSE 2021-08-15 18:51:00 [facility] ABO AND RH CONFIRMATION BY 2021-08-15 18:45:00 [facility] PROTOCOL ECG PRE/POST OP 2021-08-10 22:46:[address] [facility] COVID-19 QUALITATIVE RT-PCR 2021-08-10 22:27:00 [facility] BASIC METABOLIC PANEL 2021-08-10 22:27:00 [facility] HC COMPLETE BLD COUNT 2021-08-10 22:27:00 [facility] W/AUTO DIFF HEMOGLOBIN A1C 2021-08-10 22:27:00 [facility] TYPE AND SCREEN 2021-08-10 22:27:[address] [facility] ESTIMATED GFR 2021-08-10 22:27:00 [facility] XR UPPER EXTREMITY EXTERNAL 2021-08-10 15:16:44 [facility] STUDY XR, wrist, 3 or more view 2021-08-10 00:00:00 [facility] Orthopedic Surgery 2021-08-10 00:00:00 Araceli Arauz [facility] Plan of Care Planned Activity Planned Date Details Comments Source Future Scheduled 2022-07-27 HEPATITIS B VACCINES Met [facility] Test 20:40:41 (1 of 3 - 3-dose series) [code = HEPATITIS B VACCINES (1 of 3 - 3-dose series)] Future Scheduled 2022-07-27 Hepatitis C screening [facility] Test 20:40:41 (procedure) [code = 896936628] Future Scheduled 2022-07-27 BREAST CANCER [facility] Test 20:40:41 SCREENING [code = BREAST CANCER SCREENING] Future Scheduled 2022-07-27 COLONOSCOPY SCREENING [facility] Test 20:40:41 [code = COLONOSCOPY SCREENING] Future Scheduled 2022-07-27 SHINGLES VACCINES (1 Met [facility] Test 20:40:41 of 2) [code = SHINGLES VACCINES (1 of 2)] Future Scheduled 2022-07-27 65+ [facility]OCOCCAL [facility] Test 20:40:41 VACCINE (3 - PPSV23 if available, else PCV20) [code = 65+ PNEUMOCOCCAL VACCINE (3 - PPSV23 if available, else PCV20)] Future Scheduled 2022-07-27 COVID-19 VACCINE (3 - [facility] Test 20:40:41 Booster for Pfizer series) [code = COVID-19 VACCINE (3 - Booster for Pfizer series)] Future Scheduled 2022-07-27 INFLUENZA VACCINE Method [facility] Test 20:40:41 [code = INFLUENZA VACCINE] Future Scheduled 2022-07-18 INFLUENZA VACCINE Method [facility] Test 14:34:51 [code = INFLUENZA VACCINE] Future Scheduled 2022-07-18 HEPATITIS B VACCINES Met [facility] Test 14:34:51 (1 of 3 - 3-dose series) [code = HEPATITIS B VACCINES (1 of 3 - 3-dose series)] Future Scheduled 2022-07-18 Hepatitis C screening [facility] Test 14:34:51 (procedure) [code = 920528556] Future Scheduled 2022-07-18 BREAST CANCER [facility] Test 14:34:51 SCREENING [code = BREAST CANCER SCREENING] Future Scheduled 2022-07-18 COLONOSCOPY SCREENING [facility] Test 14:34:51 [code = COLONOSCOPY SCREENING] Future Scheduled 2022-07-18 SHINGLES VACCINES (1 Met [facility] Test 14:34:51 of 2) [code = SHINGLES VACCINES (1 of 2)] Future Scheduled 2022-07-18 65+ PNEUMOCOCCAL [facility] Test 14:34:51 VACCINE (3 - PPSV23 if available, else PCV20) [code = 65+ PNEUMOCOCCAL VACCINE (3 - PPSV23 if available, else PCV20)] Future Scheduled 2022-07-18 COVID-19 VACCINE (3 - Me [facility] Test 14:34:51 Booster for Pfizer series) [code = COVID-19 VACCINE (3 - Booster for Pfizer series)] Diagnostic Test 2022-06-28 TSH + T4, serum [code [facility] Pending 00:00:00 = TSH + T4, serum] Hospital Clinics Diagnostic Test 2022-06-28 ESR (erythrocyte [place] [facility] Pending 00:00:00 sedimentation rate), [facility] blood [code = ESR (erythrocyte sedimentation rate), blood] Diagnostic Test 2022-06-28 C-reactive protein, [facility] Pending 00:00:00 quantitative [code = [facility] C-reactive protein, quantitative] Encounters Start End Encounter Admission Attending Care Care Encounter Source Date/Time Date/Time Type Type Clinicians Facility Department ID 2022-07-27 2022-07-27 Outpatient MARSHA_A [facility] [id number] [place] 00:00:00 00:00:00 103 [facility] 2022-07-12 2022-07-12 Outpatient MARSHA_A [facility] [id number] 0221 [place] 00:00:00 00:00:00 019 [facility] i ty [facility] 2022-07-12 2022-07-12 Breann Sutherland [facility] [place] 019 [place] 00:00:00 00:00:00 Malolry Hou MD: [address] [facility], [place] Hospit a [address], COMMUNITY l [address], [place] [address] MARSHA , Ph. 2022-06-28 2022-06-28 Outpatient MARSHA_Minoo [facility] [id number] 0221 [place] 00:00:00 00:00:00 005 Commun i ty Hospita l [facility] 2022-06-28 2022-06-28 Breann Sutherland [facility] [place] [id number] 005 [place] 00:00:00 00:00:00 Mallory Hou MD: [address] [facility] Hospit a [address], COMMUNITY l [address], HOSPITAL [facility], [address] MARSHA , Ph. 2022-06-07 2022-06-07 Outpatient MARSHA_A [facility] [id number] 0220 [place] 00:00:00 00:00:00 914 Commun i ty Hospita [facility] Clinics 2022-06-01 2022-06-01 Outpatient MARSHA_A [facility] [id number] 0220 [place] 00:00:00 00:00:00 908 Commun i ty Hospita l Clinics 2022-06-01 2022-06-01 Outpatient Breann Hou [facility] [id number] 00:00:00 00:00:00 Ena [id number] 2022-06-01 2022-06-01 Breann Sutherland [facility] [place] [id number] [place] 00:00:00 00:00:00 Mallory Hou MD: [address] [facility] ARACELI [place] Hospit a [address], COMMUNITY l [address], [place], [place] CLINIC, [address] MARSHA , Ph. 2022-05-04 2022-05-04 Outpatient MARSHA_Minoo [facility] [id number] [place] 00:00:00 00:00:00 811 Commun i ty Hospita l Clinics 2022-05-04 2022-05-04 Outpatient Breann Hou [facility] d83 [id number] 00:00:00 00:00:00 Ena [id number] [id number] 2022-05-04 2022-05-04 Breann Sutherland [facility] [place] [id number] [place] 00:00:00 00:00:00 Mallory Hou MD: [address] [facility] [place] Hospit a [address], COMMUNITY l [address], HOSPITAL [facility], [address] MARSHA , Ph. 2022-05-04 2022-05-04 Outpatient Breann Hou [facility] b4d [id number] 00:00:00 00:00:00 Ena [id number] 2022-04-27 2022-04-27 Outpatient MARSHA_A [facility] [id number] 0220 [place] 00:00:00 00:00:00 804 Commun i ty Hospita l Clinics 2022-04-27 2022-04-27 Outpatient Breann Hou [facility] 93e [id number] 00:00:00 00:00:00 Ena 409-11ed-a [id number] 2022-04-27 2022-04-27 Breann Sutherland [facility] [place] [id number] [place] 00:00:00 00:00:00 Mallory Hou MD: [address] [facility] [place] Hospit a [address], COMMUNITY l [address], HOSPITAL [facility], [address] MARSHA , Ph. 2022-03-29 2022-03-29 Outpatient MARSHA_Minoo [facility] [id number] [place] 11:31:00 11:31:00 706 Commun i ty Hospita l [facility] 2022-03-29 2022-03-29 Outpatient Breann Hou [facility] [id number] 00:00:00 00:00:00 Ena [id number] 2022-03-29 2022-03-29 Breann Sutherland [facility] [place] [id number] 706 [place] 00:00:00 00:00:00 Mallory Hou MD: [address] [facility] [place] Hospit a [address], COMMUNITY l [address], [place], [place] CL[place]IC, [address] MARSHA , Ph. 2022-03-09 2022-03-09 Outpatient MARSHA_Minoo [facility] [id number] [place] 04:46:00 04:46:00 616 Commun i ty Hospita l Clinics 2022-03-09 2022-03-09 Outpatient Breann Hou [facility] 617 [id number] 00:00:00 00:00:00 Ena [id number] 2022-03-09 2022-03-09 Breann Sutherland [facility] [place] 616 [place] 00:00:00 00:00:00 Mallory Hou MD: [address] [facility] Hospit a [address], COMMUNITY l [address], HOSPITAL [place], [place] CLINIC, [address] MARSHA , Ph. 2022-03-07 2022-03-07 Outpatient MARSHA_Minoo [facility] [id number] [place] 06:06:00 06:06:00 614 Commun i ty Hospita l Clinics 2022-03-07 2022-03-07 Outpatient Breann Hou [facility] cb8 [id number] 00:00:00 00:00:00 Ena [id number] 2022-03-07 2022-03-07 Breann Sutherland [facility] [place] 61 [place] 00:00:00 00:00:00 Mallory Hou MD: [address] [facility] Hospit a [address], COMMUNITY l [address], HOSPITAL [place], [place] CLINIC, [address] MARSHA , Ph. 2022-02-21 2022-02-21 Outpatient MARSHA_Minoo [facility] [id number] 0220 [place] 04:27:00 04:27:00 531 Commun i ty Hospita l Clinics 2022-02-21 2022-02-21 Outpatient Marsha Breann [facility] 393 [id number] 00:00:00 00:00:00 Ena [id number] 2022-02-21 2022-02-21 Breann Sutherland [facility] [place] [id number] 531 [place] 00:00:00 00:00:00 Mallory Hou MD: [address] [facility] [place] Hospit a [address], COMMUNITY l [address], HOSPITAL Clinic [place], [place] CLINIC, [address] MARSHA , Ph. 2022-02-15 2022-02-15 Outpatient MARSHA_Minoo [facility] [id number] 0220 [place] 04:26:00 04:26:00 525 Commun i ty Hospita l Clinics 2022-02-15 2022-02-15 Outpatient Breann Hou [facility] ee6 [id number] 00:00:00 00:00:00 Ena [id number] 2022-02-15 2022-02-15 Breann Toscanon [facility] [place] [id number] [place] 00:00:00 00:00:00 Mallory Hou MD: [address] [facility] [place] Hospit a [address], COMMUNITY l [address], HOSPITAL Clinic [place], [place] CLINIC, [address] MARSHA , Ph. 2021-11-08 2021-11-08 Outpatient SUSANFFER_A [facility] [id number] [place] 03:36:00 03:36:00 215 Commun i ty Hospita l Clinics 2021-11-08 2021-11-08 Breann Sutherland [facility] [place] [id number] 215 [place] 00:00:00 00:00:00 Mallory Hou MD: [address] [facility] [place] Hospit a [address], COMMUNITY l [address], HOSPITAL [place], [place] CLINIC, [address] MARSHA , Ph. 2021-11-08 2021-11-08 Outpatient Breann Hou [facility] 42a [id number] 00:00:00 00:00:00 Ena [id number] 2021-11-08 2021-11-08 Outpatient Breann Hou [facility] f0f [id number] 00:00:00 00:00:00 Ena [id number] 8231-12-29 2021-09-21 Office Pimentel, 1.2.840.1 [id number] 6962 Methodi 11:10:00 11:16:54 Visit Jael Kelly 09857.1.[address] 3.430.2.7 Hospit a .3.239123 l .8 2021-09-21 2021-09-21 Office Herrings, 1.2.840.1 [id number] 060034 8148 Methodi 11:10:00 11:16:54 Visit Jael Kelly 95822.1.[address] 3.430.2.7 Hospit a .3.793523 l .8 2021-09-21 2021-09-21 [facility] [id number] [place] 00:00:00 00:00:[address] JAEL [address] 2021-09-21 2021-09-21 Travel 1.2.840.1 1.2.152.951 9639 159021 Methodi 00:00:00 00:00:[address] 3.430.2.7 0.2.7.3.698 Ho spita .3.410572 084.8 l .8 2021-09-21 2021-09-21 Travel 1.2.840.1 1.2.596.256 4695 017809 Methodi 00:00:00 00:00:[address] 3.430.2.7 0.2.7.3.698 Ho spita .3.987265 084.8 l .8 2021-09-07 2021-09-07 Outpatient KEJOSELYN_A [facility] [id number] 0211 [place] 11:11:00 11:11:00 215 Commun i ty Hospita l Clinics 2021-08-30 2021-08-30 Outpatient MARSHA_A [facility] [id number] 0211 [place] 01:59:00 01:59:00 207 Commun i ty Hospita l Clinics 2021-08-24 2021-08-24 Office Herrings, 1.2.840.1 [id number] 1025 Methodi 11:30:00 11:32:06 Visit Jael Kelly 90029.1.[address] 3.430.2.7 Hospit a .3.410866 l .8 2021-08-24 2021-08-24 Office Herrings, 1.2.840.1 [id number] 890690 8617 Methodi 11:30:00 11:32:06 Visit Jael Kelly 62329.1.[address] 3.430.2.7 Hospit a .3.206847 l .8 2021-08-24 2021-08-24 Outpatient [facility] [id number] [address] [place] [address] 00:00:00 00:00:[address] Bacon [facility] 2021-08-24 2021-08-24 Travel 1.2.840.1 1.2.852.054 4870 659979 Methodi 00:00:00 00:00:[address] 3.430.2.7 0.2.7.3.698 Ho spita .3.369886 084.8 l .8 2021-08-24 2021-08-24 Travel 1.2.840.1 1.2.901.149 8707 816031 Methodi 00:00:00 00:00:[address] 3.430.2.7 0.2.7.3.698 Ho spita .3.736572 084.8 l .8 2021-08-15 2021-08-15 [facility], 1.2.840.1 [id number] 80519 Methodi 11:51:00 18:01:00 Encounter Jael Kelly 34084.1.[address] 3.430.2.7 Hospit a .3.242168 l .8 2021-08-15 2021-08-15 [facility] 1.2.840.1 [id number] 32840 Methodi 11:51:00 18:01:00 Encounter Jael Kelly 48355.1.[address] 3.430.2.7 Hospit a .3.067881 l .8 2021-08-15 2021-08-15 Surgery [facility] 1.2.840.1 [id number] 4337 Methodi 15:20:00 17:20:00 Jael Kelly 78893.1.[address] 3.430.2.7 Hospit a .3.804673 l .8 2021-08-15 2021-08-15 [facility] 1.2.840.1 [id number] 4698 Methodi 15:20:00 17:20:00 Jael Kelly [address]389.1.[address] 3.430.2.7 Hospit a .3.767769 l .8 2021-08-15 2021-08-15 Anesthesia Sahil Kwon 1.2.840.1 [id number] 025 [id number] Methodi 14:44:00 15:59:00 Event Akua Jasso 43706.1.[address] 3.430.2.7 Hospit a .3.494841 l .8 2021-08-15 2021-08-15 Anesthesia Sahil Kwon 1.2.840.1 694104 025 [id number] Methodi 14:44:00 15:59:00 Event Akua Jasso 05970.1.[address] 3.430.2.7 Hospit a .3.247555 l .8 2021-08-15 2021-08-15 Travel 1.2.840.1 1.2.014.858 2501 341555 Methodi 00:00:00 00:00:[address] 3.430.2.7 0.2.7.3.698 Ho spita .3.788495 084.8 l .8 2021-08-15 2021-08-15 Travel 1.2.840.1 1.2.362.338 1926 887868 Methodi 00:00:00 00:00:[address] 3.430.2.7 0.2.7.3.698 Ho spita .3.610011 084.8 l .8 2021-08-12 2021-08-12 Refill Mar, 1.2.840.1 [id number] Methodi 00:00:00 00:00:[address] 3.430.2.7 Hospit a .3.124361 l .8 2021-08-12 2021-08-12 Refill Mar, 1.2.840.1 [id number] Methodi 00:00:00 00:00:[address] 3.430.2.7 Hospit a .3.534934 l .8 2021-08-10 2021-08-10 [facility], 1.2.840.1 [id number] 56591 Methodi 13:03:46 23:59:00 Encounter Jael Kelly 45264.1.[address] 3.430.2.7 Hospit a .3.005424 l .8 2021-08-10 2021-08-10 Pre-Admiss Herrings, 1.2.840.1 [id number] 790 [id number] Methodi 16:00:00 17:00:00 ion Jael Kelly 47028.1.[address] Testing 3.430.2.7 Hospit a .3.624445 l .8 2021-08-10 2021-08-10 [facility], 1.2.840.1 [id number] 7751 Methodi 13:20:00 14:42:05 Visit Jael Kelly 29676.1.[address] 3.430.2.7 Hospit a .3.551048 l .8 2021-08-10 2021-08-10 Outpatient KEFFER_A [facility] 4573-2 0211 [place] 02:07:00 02:07:00 117 Commun i ty Hospita l Clinics 2021-08-10 2021-08-10 Outpatient Breann Hou [facility] b97 [id number] 00:00:00 00:00:00 Ena [id number]-9 [id number] 2021-08-10 2021-08-10 Breann Sutherland [facility] [place] [address] 117 [place] 00:00:00 00:00:00 Mallory Hou MD: [address] [facility] ty ComfortBRENDA Hospit a [address], [facility] l [address], HOSPITAL Clinic [facility], [facility], [address] MARSHA , Ph. 2021-08-10 2021-08-10 Orders Mar, 1.2.840.1 [id number] Methodi 00:00:00 00:00:00 Only Mary 38475.1.[address] 3.430.2.7 Hospit a .3.457395 l .8 2021-08-10 2021-08-10 Transcribe Pimentel, 1.2.840.1 [id number] 192 [id number] Methodi 00:00:00 00:00:00 Orders Jael Kelly 80736.1.[address] 3.430.2.7 Hospit a .3.043712 l .8 2021-08-10 2021-08-10 Orders Pimentel, 1.2.840.1 [id number] 1876 Methodi 00:00:00 00:00:00 Only Jael Robin 45883.1.[address] 3.430.2.7 Hospit a .3.134397 l .8 2021-08-10 2021-08-10 Travel 1.2.840.1 1.2.324.026 3989 293260 Methodi 00:00:00 00:00:[address] 3.430.2.7 0.2.7.3.698 Ho spita .3.739394 084.8 l .8 2021-07-06 2021-07-06 Outpatient KEFFER_A [facility] [id number] 0211 [place] 01:56:00 01:56:00 013 Commun i ty Hospita l Clinics 2021-06-22 2021-06-22 Outpatient KEFFER_A [facility] 4573-2 0210 [place] 06:30:00 06:30:00 929 Commun i ty Hospita l Clinics 2021-06-22 2021-06-22 Outpatient MarshaBreann [facility] 033 [id number] 00:00:00 00:00:00 Ena [id number]-a [id number] 2021-06-22 2021-06-22 Breann Sutherland [facility] [place] 00:00:00 00:00:00 Mallory Hou MD: [address] [facility] Hospit a [address], COMMUNITY l [address], [facility], [address] MARSHA , Ph. 2021-06-22 2021-06-22 Outpatient MarshaBreann [facility] 44c [id number] 00:00:00 00:00:00 Ena 164-11ec-b [id number] 2021-03-10 2021-03-10 Outpatient MARSHA_Minoo [facility] 4573-2 0 [place] 02:37:00 02:37:00 617 Commun i ty Hospita l Clinics 2021-02-01 2021-02-01 Outpatient KEFFER_A [facility] 4573-2 0210 [place] 10:17:00 10:17:00 511 Commun i ty Hospita l Clinics 2021-02-01 2021-02-01 Breann Sutherland [facility] [place] 00:00:00 00:00:00 Mallory Hou MD: [address] [facility] Hospit a [address], COMMUNITY l [address], [facility], [address] MARSHA , Ph. 2021-02-01 2021-02-01 Outpatient Breann Hou [facility] 1e8 [id number] 00:00:00 00:00:00 Ena [id number] 2021-01-19 2021-01-19 Outpatient MARSHA_Minoo [facility] 4573-2 0210 [place] 02:24:00 02:24:00 428 Commun i ty Hospita l Clinics 2021-01-18 2021-01-18 Outpatient MARSHA_Minoo [facility] 4573-2 0 [place] 03:44:00 03:44:00 427 Commun i ty Hospita l Clinics 2021-01-18 2021-01-18 Breann Ena [facility] [place] 427 [place] 00:00:00 00:00:00 Mallory Hou MD: [address] [facility] Hospit a [address], [facility] l [address], HOSPITAL Clinic [facility], [place] CLINIC, [address] MARSHA , Ph. 2021-01-18 2021-01-18 Outpatient MarshaBreann [facility] 197 [id number] 00:00:00 00:00:00 Ena [id number]-[id number] [id number] 2021-01-18 2021-01-18 Outpatient Breann Hou [facility] 197 [id number] 00:00:00 00:00:00 Ena [id number]-4 [id number] 2020-08-11 2020-08-11 Outpatient marsha_minoo [facility] 2019 [place] 02:19:00 02:19:00 1118 [facility] 2020-06-28 2020-06-28 [address] MEHOP_LAB [facility] [place] 02:50:00 02:50:00 [facility] 2020-06-27 2020-06-27 Out[address] MEHOP_LAB [facility] [place] 10:47:00 10:47:00 [facility] 2020-06-25 2020-06-25 Out[address] MEHOP_LAB [facility] [place] 02:45:00 02:45:00 1002 da [facility] Results Test Description Test Time [...] immature cells (test code = immature cells) inpatient coder Neutrophils [#/volume] in Blood by Automated count [...] e stab. Automated count (test code = 94425-1) Immature granulocytes [#/volume] in Blood by Automated 0.2 x10e3/uL 0.0-0.1 H count (test code = 84673-4) Nucleated erythrocytes/100 leukocytes [Ratio] in Blood inpatient coder by Automated count (test code = 71543-3) Morphology [Interpretation] in Blood Narrative (test inpatient coder code = 25160-2) [facility] - Serum or [id number] 00:00:00 Test Item Value Reference Range Interpretation [...] 96-106 Serum or Plasma (test code = 2074-0) Carbon dioxide, total 23 mmol/L 20-29 [Moles/volume] in Serum or Plasma (test code = 2027-) Calcium [Mass/volume] in Serum 9.4 mg/dL 8.7-10.3 or Plasma (test code = 74692-7) Protein [Mass/volume] in Serum 5.8 g/dL 6.0-8.5 L or Plasma (test code = 2885-2) Albumin [Mass/volume] in Serum 3.7 g/dL 3.8-4.8 L or Plasma (test code = 1751-7) Globulin [Mass/volume] in 2.1 g/dL 1.5-4.5 Serum by calculation (test code = 88893-6) Albumin/Globulin [Mass Ratio] 1.8 1.2-2.2 in Serum [...] Serum or Plasma (test code = 1742-6) [facility]ics[facility] Reflex Culture panel - [id number] 00:00:00 Test Item Value Reference Range Interpretation [...] negative negative/trace Test strip (test code = 02059-8) Glucose [Presence] in Urine by negative negative Test strip (test code = 36806-2) Ketones [Presence] in Urine by negative negative Test strip (test code = 2514-8) Hemoglobin [Presence] in Urine by negative negative Test strip (test code = 5794-3) Bilirubin.total [Presence] in negative negative Urine by Test strip (test code = 5770-3) Urobilinogen [Mass/volume] in 0.2 mg/dL 0.2-1.0 Urine by Test strip (test code = 40785-6) Nitrite [Presence] in Urine by negative negative Test strip (test code = 5802-4) Microscopic observation see below: [Identifier] in Urine sediment by Light microscopy (test code = 26063-1) Leukocytes [#/area] in Urine 0-5 0-5 sediment by Microscopy high power field (test code = 5821-4) Erythrocytes [#/area] in Urine none seen 0-2 sediment by Microscopy high power field (test code = 11058-4) Epithelial cells [#/area] in Urine 0-10 0-10 sediment by Microscopy high power field (test code = 5787-7) Epithelial cells.renal [#/area] in inpatient coder Urine sediment by Microscopy high power field (test code = 66684-4) Casts [Presence] in Urine sediment none seen none seen by Light microscopy (test code = 10157-6) Casts [Type] in Urine sediment by inpatient coder Light microscopy (test code = 14351-5) Unidentified crystals [Presence] inpatient coder in Urine sediment by Light microscopy (test code = 5783-6) Crystals [type] in Urine sediment inpatient coder by Light microscopy (test code = 5782-8) Mucus [Presence] in Urine sediment inpatient coder by Light microscopy (test code = 8247-9) Bacteria [#/area] in Urine none seen none seen/few sediment by Microscopy high power field (test code = 5769-5) Yeast [#/area] in Urine sediment inpatient coder by Microscopy high power field (test code = 5822-2) Trichomonas vaginalis [Presence] inpatient coder in Urine sediment by Light microscopy (test code = 5813-1) Urine sediment comments by Light inpatient coder microscopy Narrative (test code = 64931-7) urinalysis reflex (test code = comment urinalysis reflex) [facility]ation] in Serum or [id number] 00:00:00 Test Item Value Reference Range Interpretation Comments Cobalamin (Vitamin B12) 182 pg/mL 232-1245 L [Mass/volume] in Serum or Plasma (test code = 2132-9) Folate [Mass/volume] in Serum or >20.0 >3.0 Plasma (test code = 2284-8) [facility], [id number] 00:00:00 Test Item Value Reference Range Interpretation Comments Thyrotropin [Units/volume] in 2.350 uIU/mL 0.450-4.500 Serum or Plasma by Detection limit <= 0.005 mIU/L (test code = 90684-9) Thyroxine (T4) [Mass/volume] in 8.8 ug/dL 4.5-12.0 Serum or Plasma (test code = 3026-2) [facility]-Hydroxy[facility]amin D3+25-Hydroxyvitamin D2 [Mass/volume] in Serum or [id number] 00:00:00 Test Item Value Reference Range Interpretation Comments 25-Hydroxyvitamin 34.5 NG/mL 30.0-100.0 D3+25-Hydroxyvitamin D2 [Mass/volume] in Serum or Plasma (test code = 72304-4) [facility]Hemoglobin.total in Blood 2022-02-16 00:00:00 Test Item Value Reference Range Interpretation Comments Hemoglobin A1c/Hemoglobin.total in 5.7 % 4.8-5.6 H Blood (test code = 4548-4) [facility] W Differential panel, method unspecified - [id number] 00:00:00 Test Item Value Reference Range Interpretation [...] = 706-2) immature cells (test code = inpatient coder immature cells) Neutrophils [#/volume] in Blood 7.7 [...] Blood by Automated count (test code = 98093-6) Immature granulocytes 0.2 x10e3/uL 0.0-0.1 H [#/volume] in Blood by Automated count (test code = 20126-2) Nucleated erythrocytes/100 inpatient coder leukocytes [Ratio] in Blood by Automated count (test code = 56710-2) Morphology [Interpretation] in inpatient coder Blood Narrative (test code = 82007-4) [facility] - Serum or [id number] 00:00:00 Test Item Value Reference Range Interpretation [...] in Serum or Plasma (test code = 8-9) Calcium [Mass/volume] in Serum 9.4 mg/dL 8.7-10.3 or Plasma (test code = 21322-0) Protein [Mass/volume] in Serum 5.8 g/dL 6.0-8.5 L or Plasma (test code = 2885-2) Albumin [Mass/volume] in Serum 3.7 g/dL 3.8-4.8 L or Plasma (test code = 1751-7) Globulin [Mass/volume] in 2.1 g/dL 1.5-4.5 Serum by calculation (test code = 42042-4) Albumin/Globulin [Mass Ratio] 1.8 1.2-2.2 in Serum [...] Serum or Plasma (test code = 1742-6) [facility] W Reflex Culture panel - [id number] 00:00:00 Test Item Value Reference Range Interpretation [...] negative negative/trace Test strip (test code = 24417-9) Glucose [Presence] in Urine by negative negative Test strip (test code = 16952-2) Ketones [Presence] in Urine by negative negative Test strip (test code = 2514-8) Hemoglobin [Presence] in Urine by negative negative Test strip (test code = 5794-3) Bilirubin.total [Presence] in negative negative Urine by Test strip (test code = 5770-3) Urobilinogen [Mass/volume] in 0.2 mg/dL 0.2-1.0 Urine by Test strip (test code = 18745-2) Nitrite [Presence] in Urine by negative negative Test strip (test code = 5802-4) Microscopic observation see below: [Identifier] in Urine sediment by Light microscopy (test code = 62640-9) Leukocytes [#/area] in Urine 0-5 0-5 sediment by Microscopy high power field (test code = 5821-4) Erythrocytes [#/area] in Urine none seen 0-2 sediment by Microscopy high power field (test code = 74668-0) Epithelial cells [#/area] in Urine 0-10 0-10 sediment by Microscopy high power field (test code = 5787-7) Epithelial cells.renal [#/area] in inpatient coder Urine sediment by Microscopy high power field (test code = 65237-8) Casts [Presence] in Urine sediment none seen none seen by Light microscopy (test code = 52395-1) Casts [Type] in Urine sediment by inpatient coder Light microscopy (test code = 70727-3) Unidentified crystals [Presence] inpatient coder in Urine sediment by Light microscopy (test code = 5783-6) Crystals [type] in Urine sediment inpatient coder by Light microscopy (test code = 5782-8) Mucus [Presence] in Urine sediment inpatient coder by Light microscopy (test code = 8247-9) Bacteria [#/area] in Urine none seen none seen/few sediment by Microscopy high power field (test code = 5769-5) Yeast [#/area] in Urine sediment inpatient coder by Microscopy high power field (test code = 5822-2) Trichomonas vaginalis [Presence] inpatient coder in Urine sediment by Light microscopy (test code = 5813-1) Urine sediment comments by Light inpatient coder microscopy Narrative (test code = 40640-6) urinalysis reflex (test code = comment urinalysis reflex) [facility]Cyanocobalamin [Interpretation] in Serum or [id number] 00:00:00 Test Item Value Reference Range Interpretation Comments Cobalamin (Vitamin B12) 182 pg/mL 232-1245 L [Mass/volume] in Serum or Plasma (test code = 2132-9) Folate [Mass/volume] in Serum or >20.0 >3.0 Plasma (test code = 2284-8) [facility] + T4, [id number] 00:00:00 Test Item Value Reference Range Interpretation Comments Thyrotropin [Units/volume] in 2.350 uIU/mL 0.450-4.500 Serum or Plasma by Detection limit <= 0.005 mIU/L (test code = 40932-8) Thyroxine (T4) [Mass/volume] in 8.8 ug/dL 4.5-12.0 Serum or Plasma (test code = 3026-2) [facility]-Hydro[facility]amin D3+25-Hydroxyvitamin D2 [Mass/volume] in Serum or [id number] 00:00:00 Test Item Value Reference Range Interpretation Comments 25-Hydroxyvitamin 34.5 NG/mL 30.0-100.0 D3+25-Hydroxyvitamin D2 [Mass/volume] in Serum or Plasma (test code = 43795-1) [facility]em[facility] A1c/Hemoglobin.total in Blood 2022-02-16 00:00:00 Test Item Value Reference Range Interpretation Comments Hemoglobin A1c/Hemoglobin.total in 5.7 % 4.8-5.6 H Blood (test code = 4548-4) [facility] W Differential panel, method unspecified - [id number] 00:00:00 Test Item Value Reference Range Interpretation [...] = 706-2) immature cells (test code = inpatient coder immature cells) Neutrophils [#/volume] in Blood 7.7 [...] Blood by Automated count (test code = 63564-4) Immature granulocytes 0.2 x10e3/uL 0.0-0.1 H [#/volume] in Blood by Automated count (test code = 60622-5) Nucleated erythrocytes/100 inpatient coder leukocytes [Ratio] in Blood by Automated count (test code = 43048-8) Morphology [Interpretation] in inpatient coder Blood Narrative (test code = 50759-0) [facility] - Serum or [id number] 00:00:00 Test Item Value Reference Range Interpretation [...] mg/dL 8.7-10.3 or Plasma (test code = 30847-3) Protein [Mass/volume] in Serum 5.8 g/dL 6.0-8.5 L or Plasma (test code = 2885-2) Albumin [Mass/volume] in Serum 3.7 g/dL 3.8-4.8 L or Plasma (test code = 1751-7) Globulin [Mass/volume] in 2.1 g/dL 1.5-4.5 Serum by calculation (test code = 63240-0) Albumin/Globulin [Mass Ratio] 1.8 1.2-2.2 in Serum [...] Serum or Plasma (test code = 1742-6) [facility]ics[facility] W Reflex Culture panel - [id number] 00:00:00 Test Item Value Reference Range Interpretation [...] negative negative/trace Test strip (test code = 76701-4) Glucose [Presence] in Urine by negative negative Test strip (test code = 54718-5) Ketones [Presence] in Urine by negative negative Test strip (test code = 2514-8) Hemoglobin [Presence] in Urine by negative negative Test strip (test code = 5794-3) Bilirubin.total [Presence] in negative negative Urine by Test strip (test code = 5770-3) Urobilinogen [Mass/volume] in 0.2 mg/dL 0.2-1.0 Urine by Test strip (test code = 03723-0) Nitrite [Presence] in Urine by negative negative Test strip (test code = 5802-4) Microscopic observation see below: [Identifier] in Urine sediment by Light microscopy (test code = 84621-9) Leukocytes [#/area] in Urine 0-5 0-5 sediment by Microscopy high power field (test code = 5821-4) Erythrocytes [#/area] in Urine none seen 0-2 sediment by Microscopy high power field (test code = 47807-8) Epithelial cells [#/area] in Urine 0-10 0-10 sediment by Microscopy high power field (test code = 5787-7) Epithelial cells.renal [#/area] in inpatient coder Urine sediment by Microscopy high power field (test code = 92302-6) Casts [Presence] in Urine sediment none seen none seen by Light microscopy (test code = 42610-4) Casts [Type] in Urine sediment by inpatient coder Light microscopy (test code = 55626-1) Unidentified crystals [Presence] inpatient coder in Urine sediment by Light microscopy (test code = 5783-6) Crystals [type] in Urine sediment inpatient coder by Light microscopy (test code = 5782-8) Mucus [Presence] in Urine sediment inpatient coder by Light microscopy (test code = 8247-9) Bacteria [#/area] in Urine none seen none seen/few sediment by Microscopy high power field (test code = 5769-5) Yeast [#/area] in Urine sediment inpatient coder by Microscopy high power field (test code = 5822-2) Trichomonas vaginalis [Presence] inpatient coder in Urine sediment by Light microscopy (test code = 5813-1) Urine sediment comments by Light inpatient coder microscopy Narrative (test code = 42975-1) urinalysis reflex (test code = comment urinalysis reflex) [facility]+Cyanocobalamin [Interpretation] in Serum or [id number] 00:00:00 Test Item Value Reference Range Interpretation Comments Cobalamin (Vitamin B12) 182 pg/mL 232-1245 L [Mass/volume] in Serum or Plasma (test code = 2132-9) Folate [Mass/volume] in Serum or >20.0 >3.0 Plasma (test code = 2284-8) [facility] + T4, [id number] 00:00:00 Test Item Value Reference Range Interpretation Comments Thyrotropin [Units/volume] in 2.350 uIU/mL 0.450-4.500 Serum or Plasma by Detection limit <= 0.005 mIU/L (test code = 96937-5) Thyroxine (T4) [Mass/volume] in 8.8 ug/dL 4.5-12.0 Serum or Plasma (test code = 3026-2) [facility]25-Hydroxy[facility]amin D3+25-Hydroxyvitamin D2 [Mass/volume] in Serum or [id number] 00:00:00 Test Item Value Reference Range Interpretation Comments 25-Hydroxyvitamin 34.5 NG/mL 30.0-100.0 D3+25-Hydroxyvitamin D2 [Mass/volume] in Serum or Plasma (test code = 45938-1) [facility] HospitalHem[facility] A1c/Hemoglobin.total in Blood 2022-02-16 00:00:00 Test Item Value Reference Range Interpretation Comments Hemoglobin A1c/Hemoglobin.total in 5.7 % 4.8-5.6 H Blood (test code = 4548-4) [facility]icsAB[facility] and Rh [id number] 20:41:00 Test Item Value Reference Range Interpretation Comments ABO grouping (test code = 883-9) A Rh type (test code = 79892-8) [facility] [id number] 20:41:00 Test Item Value Reference Range Interpretation Comments ABO grouping (test code = 883-9) A Rh type (test code = 40866-5) POS [facility] [id number] 18:54:01 Test Item Value Reference Range Interpretation Comments POC glucose (test 84 mg/dL 65-99 [employer] N ajay: Carrera code = 26731-4) Margaux e ID: [id number] [facility] [id number] 18:54:01 Test Item Value Reference Range Interpretation Comments POC glucose (test 84 mg/dL 65-99 [employer] N ajay: Carrera code = 39914-5) RebeccaDejonathon e ID: [id number] 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 (test code = 61712-3) Whether the patient has symptoms related to condition of interest (test code = 31199-0) Patient was hospitalized because of this condition (test code = 00431-8) Whether the patient was admitted to intensive care unit (ICU) for condition of interest (test code = 16722-7) Whether patient resides in a congregate care setting (test code = 79936-6) [facility] and [id number] 00:09:00 Test Item Value Reference Range Interpretation Comments ABO grouping (test code = 883-9) A Rh type (test code = 05101-9) POS Antibody screen (gel) (test code = NEG 890-4) [facility]
[2022-08-12] MEDS ORDERED: IPRATROPIUM BROM 0.5MG/2.5ML ONE (12:37)
[2022-08-12] MEDS ORDERED: ALBUTEROL 2.5 MG/3 ML NEB SOL ONE (12:37)
[2022-08-12] MEDS ORDERED: METHYLPREDNISOLONE 125 MG INJ ONE (12:37)
[2022-08-12] MEDS ORDERED: dexAMETHasone 10 MG/ML VIAL ONE (12:37)
[2022-08-12 12:58] LABS: Lymphocytes % 10.3 % (15.3-44.8); MCV 92.2 fL (80-100); MPV 6.9 fL (7.6-11.3); RBC Red Blood Cell Count 4.12 M/uL (3.86-4.86)
[2022-08-12 13:11] LABS: Protime INR 1.53
[2022-08-12 13:28] LABS: Bilirubin Direct 0.5 mg/dL (0-0.2); Bilirubin Total 1.4 mg/dL (0.2-1.0); CKMB Creatine Kinase MB 1.5 ng/mL (1.0-3.6); Magnesium 2.1 mg/dL (1.8-2.4); Potassium 4.3 mmol/L (3.5-5.1); Protein, Total 6.6 g/dL (6.4-8.2)
[2022-08-12 13:32] LABS: Arterial Blood Carboxyhemoglob 1.6 % (0-1.5); Blood Gas Oxyhemoglobin 20.1 % (94-97); Blood O2 Saturation 20.7 % (92-98.5)
[2022-08-12 13:42] LABS: Troponin High Sensitivity 119.6 pg/mL (<58.9)
[2022-08-12] MEDS ORDERED: CEFTRIAXONE 1000 MG/VIAL ONE (14:41)
[2022-08-12] MEDS ORDERED: AZITHROMYCIN 500 MG INJ IVPB ONE (14:42)
[2022-08-12] MEDS ORDERED: NA CHLORIDE 0.9% 250 ML ONE (14:44)
[2022-08-12] MEDS ORDERED: FUROSEMIDE 40 MG/4 ML VIAL ONE (15:06)
--- NOTE | 2022-08-12 16:05 | ER ---
Nurse's Notes [facility] Name: Yasemin Richard Age: 66 yrs Sex: Female : 1955 Arrival Date: 08/12/2022 Time: 12:16 Bed 13 Private MD: Diagnosis: Acute respiratory failure with hypoxia Presentation: 08/12 12:28 Chief complaint: SOB x 2-3 days. Denies cough/fever. Hx of COPD, on 4LNC home O2. hb Unable to assess SpO2. Coronavirus screen: Client presents with at least one sign or symptom that may indicate coronavirus-19. Provider contacted for isolation considerations. Ebola Screen: No symptoms or risks identified at this time. Risk Assessment: Do you want to hurt yourself or someone else? Patient reports no desire to harm self or others. Onset of symptoms was August 10, 2022. 12:28 Method Of Arrival: Wheelchair hb 12:28 Acuity: NURIA 2 hb 17:27 Initial Sepsis Screen: Does the patient meet any 2 criteria? RR > 20 per min. HR > 90 ko1 bpm. Does the patient have a suspected source of infection? No. Patient's initial sepsis screen is negative. Triage Assessment: 12:40 General: Appears distressed, uncomfortable, ill, Behavior is cooperative, appropriate ko1 for age. Pain: Denies pain. Respiratory: Reports shortness of breath Onset: The symptoms/episode began/occurred yesterday, the patient has severe shortness of breath. Historical: - Allergies: 12:29 Codeine; hb - PMHx: 12:29 COPD; Hypertensive disorder; hb - Immunization history:: Adult Immunizations unknown. - Family history:: not pertinent. - Social history:: Smoking status: Patient denies any tobacco usage or history of. Screenin:00 Abuse screen: Denies threats or abuse. Denies injuries from another. Nutritional ko1 screening: No deficits noted. Tuberculosis screening: No symptoms or risk factors identified. Fall Risk None identified. Assessment: 12:28 Reassessment: Unable to assess SpO2, reading 0% with good waveform on 3 different hb monitors, MD notified, RT paged. 12:30 Cardiovascular: Rhythm is sinus tachycardia. Respiratory: Airway. Respiratory: ko1 Respiratory effort is even, labored, Breath sounds with crackles bilaterally. Vital Signs: 12:28 BP 114 / 67; Pulse 117; Resp 38; Temp 97.7; Weight 81.65 kg; Height 5 ft. 6 in. (167.64 hb cm); Pain 0/10; 12:30 BP 117 / 72; Pulse 118; ko1 13:00 BP 98 / 53; Pulse 104; Pulse Ox 81% on 4.5 lpm NC; ko1 13:30 BP 88 / 51; Pulse 106; Pulse Ox 94% on BiPAP; ko1 14:00 BP 95 / 58; Pulse 105; Pulse Ox 95% on BiPAP; ko1 14:30 BP 113 / 66; Pulse 105; Pulse Ox 94% on BiPAP; ko1 15:00 BP 109 / 64; Pulse 103; Pulse Ox 94% on BiPAP; ko1 15:30 BP 92 / 50; Pulse 108; Pulse Ox 81% on 5 lpm NC; ko1 16:00 BP 110 / 73; Pulse 104; Pulse Ox 95% on BiPAP; ko1 17:23 BP 91 / 64; Pulse 100; Resp 19; Pulse Ox 95% on BiPAP; ko1 12:28 Body Mass Index 29.05 (81.65 kg, 167.64 cm) hb ED Course: 12:00 Patient has correct armband on for positive identification. Bed in low position. Call ko1 light in reach. Side rails up X 1. Client placed on continuous cardiac and pulse oximetry monitoring. NIBP monitoring applied. engine monitor on. Pulse ox on. Door closed. Noise minimized. Lights dimmed. Warm blanket given. Pillow given. 12:00 No provider procedures requiring assistance completed. ko1 12:16 Patient arrived in ED. as 12:18 Willi Salinas MD is Attending Physician. rt 12:18 Andressa Herr, TANYA is Primary Nurse. ko1 12:29 Triage completed. hb 12:29 Arm band placed on. hb 12:45 Inserted saline lock: 20 gauge in right antecubital area, using aseptic technique. ko1 Blood collected. 12:47 BMP Sent. ko1 12:47 CBC with Diff Sent. ko1 12:47 CPK Sent. ko1 12:47 Ckmb Sent. ko1 12:47 D-Dimer Sent. ko1 12:47 Hepatic Function Sent. ko1 12:47 Magnesium Sent. ko1 12:48 NT PRO-BNP Sent. ko1 12:48 PT-INR Sent. ko1 12:48 Ptt, Activated Sent. ko1 12:48 Troponin HS Sent. ko1 13:02 ABG Sent. ko1 13:31 XRAY CXR (1 view) In Process Unspecified. EDMS 14:02 Radiology exam delayed due to pt is on BiPap at this time, waiting for RT. ls3 14:03 Blood Culture Adult (2) Sent. ko1 14:57 Lactate w/ 2H reflex if indic. Sent. ko1 15:09 COVID-19/FLU A+B Sent. ko1 15:50 CT Chest For PE Angio In Process Unspecified. EDMS 16:02 Todd Canchola MD is Hospitalizing Provider. rt 17:23 Patient admitted, IV remains in place. ko1 Administered Medications: 12:30 Drug: Albuterol 2.5 mg Route: Inhalation; ko1 12:30 Drug: AtroVENT (ipratropium) Aerosol 0.5 mg Route: Inhalation; ko1 12:48 Drug: SOLU-Medrol (methylPrednisoLONE) 125 mg Route: IVP; Site: right antecubital; ko1 12:54 Drug: Albuterol 2.5 mg Route: Inhalation; ko1 12:54 Drug: AtroVENT (ipratropium) Aerosol 0.5 mg Route: Inhalation; ko1 13:25 Drug: Albuterol 2.5 mg Route: Inhalation; ko1 13:25 Drug: AtroVENT (ipratropium) Aerosol 0.5 mg Route: Inhalation; ko1 14:38 Drug: Rocephin (cefTRIAXone) 1 grams Route: IV; Rate: bolus; Site: right antecubital; ko1 17:09 Follow up: Response: No adverse reaction ko1 14:57 Drug: AZITHromycin 500 mg Route: IVPB; Infused Over: 1 hrs; Site: right antecubital; ko1 17:10 Follow up: Response: No adverse reaction; IV Intake: 250ml ko1 15:09 Drug: Lasix (furosemide) 40 mg Route: IVP; Site: right antecubital; ko1 Medication: 17:23 VIS not applicable for this client. ko1 Intake: 17:10 IV: 250ml; Total: 250ml. ko1 Outcome: 16:04 Decision to Hospitalize by Provider. rt 17:23 Admitted to Tele accompanied by tech, family with patient, via stretcher, room 213, ko1 with oxygen. 17:23 Condition: improved 17:23 Instructed on the need for admit. 17:49 Patient left the ED. eb Signatures: Dispatcher [employer] Supriya Newman Heather, RN RN hb Lima Goyal Lynzie ls3 Andressa Herr RN RN ko1 Willi Salinas MD MD rt Corrections: (The following items were deleted from the chart) 14:37 12:28 Reassessment: Unable to assess Spo2, reading 0% with good waveform on 3 different hb monitors, MD notified, RT paged. 17:02 16:50 AtroVENT (ipratropium) Aerosol 0.5 mg Inhalation ko1 ko1
--- NOTE | 2022-08-12 16:05 | EDPHYS ---
Physician Documentation [facility] Name: Yasemin Richard Age: 66 yrs Sex: Female : 1955 Arrival Date: 08/12/2022 Time: 12:16 Bed 13 Private MD: ED Physician Willi Salinas HPI: 08/12 15:01 This 66 yrs old Female presents to ER via Wheelchair with complaints of Shortness Of rt Breath. 15:01 The patient has shortness of breath that woke him/her from sleep. Onset: The rt symptoms/episode began/occurred this morning. Duration: The symptoms are intermittent. The patient's shortness of breath is aggravated by exertion. Associated signs and symptoms: Pertinent positives: non-productive cough, nausea. Severity of symptoms: At their worst the symptoms were severe. Patient presents to the ED in respiratory distress cough, nausea. Denies other acute complaints at this time, symptoms are severe in severity, no other aggravating or alleviating factors.. Historical: - Allergies: 12:29 Codeine; hb - PMHx: 12:29 COPD; Hypertensive disorder; hb - Immunization history:: Adult Immunizations unknown. - Family history:: not pertinent. - Social history:: Smoking status: Patient denies any tobacco usage or history of. ROS: 15:01 Respiratory: Positive for cough, shortness of breath. rt 15:01 Abdomen/GI: Positive for nausea and vomiting, Negative for nausea and vomiting. 15:03 Constitutional: Negative for fever, chills, and weight loss, Eyes: Negative for injury, rt pain, redness, and discharge, ENT: Negative for injury, pain, and discharge, Neck: Negative for injury, pain, and swelling, Cardiovascular: Negative for chest pain, palpitations, and edema, MS/Extremity: Negative for injury and deformity, Skin: Negative for injury, rash, and discoloration, Neuro: Negative for headache, weakness, numbness, tingling, and seizure, Psych: Negative for depression, anxiety, suicide ideation, homicidal ideation, and hallucinations. 15:03 Abdomen/GI: Negative for abdominal pain. Exam: 15:03 Head/Face: Normocephalic, atraumatic. Eyes: Pupils equal round and reactive to light, rt extra-ocular motions intact. Lids and lashes normal. Conjunctiva and sclera are non-icteric and not injected. Cornea within normal limits. Periorbital areas with no swelling, redness, or edema. ENT: Nares patent. No nasal discharge, no septal abnormalities noted. Tympanic membranes are normal and external auditory canals are clear. Oropharynx with no redness, swelling, or masses, exudates, or evidence of obstruction, uvula midline. Mucous membranes moist. Neck: Trachea midline, no thyromegaly or masses palpated, and no cervical lymphadenopathy. Supple, full range of motion without nuchal rigidity, or vertebral point tenderness. No Meningismus. Chest/axilla: Normal chest wall appearance and motion. Nontender with no deformity. No lesions are appreciated. Cardiovascular: Regular rate and rhythm with a normal S1 and S2. No gallops, murmurs, or rubs. Normal PMI, no JVD. No pulse deficits. Abdomen/GI: Soft, non-tender, with normal bowel sounds. No distension or tympany. No guarding or rebound. No evidence of tenderness throughout. MS/ Extremity: Pulses equal, no cyanosis. Neurovascular intact. Full, normal range of motion. Neuro: Awake and alert, GCS 15, oriented to person, place, time, and situation. Cranial nerves II-XII grossly intact. Motor strength 5/5 in all extremities. Sensory grossly intact. Cerebellar exam normal. Normal gait. Psych: Awake, alert, with orientation to person, place and time. Behavior, mood, and affect are within normal limits. 15:03 Constitutional: The patient appears alert, in obvious distress, severely distressed. 15:03 Respiratory: Crackles with wheezing heard on all lung bowers. Severe respiratory distress.. 15:03 Skin: Cyanotic, no rash. 15:03 ECG was reviewed by the Attending Physician. rt Vital Signs: 12:28 BP 114 / 67; Pulse 117; Resp 38; Temp 97.7; Weight 81.65 kg; Height 5 ft. 6 in. (167.64 hb cm); Pain 0/10; 12:30 BP 117 / 72; Pulse 118; ko1 13:00 BP 98 / 53; Pulse 104; Pulse Ox 81% on 4.5 lpm NC; ko1 13:30 BP 88 / 51; Pulse 106; Pulse Ox 94% on BiPAP; ko1 14:00 BP 95 / 58; Pulse 105; Pulse Ox 95% on BiPAP; ko1 14:30 BP 113 / 66; Pulse 105; Pulse Ox 94% on BiPAP; ko1 15:00 BP 109 / 64; Pulse 103; Pulse Ox 94% on BiPAP; ko1 15:30 BP 92 / 50; Pulse 108; Pulse Ox 81% on 5 lpm NC; ko1 16:00 BP 110 / 73; Pulse 104; Pulse Ox 95% on BiPAP; ko1 17:23 BP 91 / 64; Pulse 100; Resp 19; Pulse Ox 95% on BiPAP; ko1 12:28 Body Mass Index 29.05 (81.65 kg, 167.64 cm) hb MDM: 12:27 Patient medically screened. rt 16:04 Differential diagnosis: CHF exacerbation, Myocardial Infarction pneumonia, Pneumothorax rt pulmonary edema, Pulmonary Embolism. Data reviewed: vital signs, lab test result(s), EKG, radiologic studies. ED course: Patient presents to the ED with dyspnea. She was found to profoundly hypoxic, this is improving on BiPAP. She is found of a pulmonary edema, treated with Lasix. Patient with an elevated BNP, D-dimer. CT angiogram was obtained. Patient will be admitted for further care.. 08/12 12:39 Order name: BMP; Complete Time: 14:10 rt 08/12 12:39 Order name: Blood Culture Adult (2) rt 08/12 12:39 Order name: CBC with Diff; Complete Time: 13:34 rt 08/12 12:39 Order name: CPK; Complete Time: 14:10 rt 08/12 12:39 Order name: Ckmb; Complete Time: 14:10 rt 08/12 12:39 Order name: D-Dimer; Complete Time: 13:34 rt 08/12 12:39 Order name: Hepatic Function; Complete Time: 14:10 rt 08/12 12:39 Order name: Magnesium; Complete Time: 14:10 rt 08/12 12:39 Order name: NT PRO-BNP; Complete Time: 14:10 rt 08/12 12:39 Order name: PT-INR; Complete Time: 13:34 rt 08/12 12:39 Order name: Ptt, Activated; Complete Time: 13:34 rt 08/12 12:39 Order name: Troponin HS; Complete Time: 14:10 rt 08/12 12:47 Order name: ABG rt 08/12 14:13 Order name: Lactate w/ 2H reflex if indic.; Complete Time: 15:46 rt 08/12 12:39 Order name: XRAY CXR (1 view); Complete Time: 16:33 rt 08/12 13:37 Order name: CT Chest For PE Angio; Complete Time: 16:33 rt 08/12 14:51 Order name: COVID-19/FLU A+B rt 08/12 15:49 Order name: BIPAP eb 08/12 16:19 Order name: CBC with Automated Diff EDMS 08/12 16:19 Order name: CBC with Automated Diff EDMS 08/12 16:19 Order name: Comprehensive Metabolic Panel EDMS 08/12 16:19 Order name: Comprehensive Metabolic Panel EDMS 08/12 16:19 Order name: Chest Pa And Lat (2 Views) EDMS 08/12 16:19 Order name: Chest Pa And Lat (2 Views) EDMS 08/12 12:39 Order name: Call RT; Complete Time: 12:40 rt 08/12 12:39 Order name: EKG; Complete Time: 12:40 rt 08/12 12:39 Order name: Cardiac monitoring; Complete Time: 12:47 rt 08/12 12:39 Order name: EKG - Nurse/Tech; Complete Time: 12:47 rt 08/12 12:39 Order name: IV Saline Lock; Complete Time: 12:47 rt 08/12 12:39 Order name: Labs collected and sent; Complete Time: 13:02 rt 08/12 12:39 Order name: O2 Per Protocol; Complete Time: 12:47 rt 08/12 12:39 Order name: O2 Sat Monitoring; Complete Time: 12:47 rt 08/12 16:19 Order name: Heart Healthy EDMS EC:03 Rate is 117 beats/min. Rhythm is regular, Sinus tachycardia with No ectopy. SD interval rt is normal. QRS interval is normal. QT interval is normal. No Q waves. Clinical impression: NSR w/ Non-specific ST/T Changes. Administered Medications: 12:30 Drug: Albuterol 2.5 mg Route: Inhalation; ko1 12:30 Drug: AtroVENT (ipratropium) Aerosol 0.5 mg Route: Inhalation; ko1 12:48 Drug: SOLU-Medrol (methylPrednisoLONE) 125 mg Route: IVP; Site: right antecubital; ko1 12:54 Drug: Albuterol 2.5 mg Route: Inhalation; ko1 12:54 Drug: AtroVENT (ipratropium) Aerosol 0.5 mg Route: Inhalation; ko1 13:25 Drug: Albuterol 2.5 mg Route: Inhalation; ko1 13:25 Drug: AtroVENT (ipratropium) Aerosol 0.5 mg Route: Inhalation; ko1 14:38 Drug: Rocephin (cefTRIAXone) 1 grams Route: IV; Rate: bolus; Site: right antecubital; ko1 17:09 Follow up: Response: No adverse reaction ko1 14:57 Drug: AZITHromycin 500 mg Route: IVPB; Infused Over: 1 hrs; Site: right antecubital; ko1 17:10 Follow up: Response: No adverse reaction; IV Intake: 250ml ko1 15:09 Drug: Lasix (furosemide) 40 mg Route: IVP; Site: right antecubital; ko1 Disposition: 16:04 Critical Care:. rt Disposition Summary: 08/12/22 16:04 Hospitalization Ordered Hospitalization Status: Inpatient Admission rt Provider: Todd Canchola rt Location: Telemetry/[facility] (Inpatient) rt Condition: Serious rt Problem: new rt Symptoms: have improved rt Bed/Room Type: Standard rt Room Assignment: 213(08/12/22 16:29) eb Diagnosis - Acute respiratory failure with hypoxia rt Forms: - Medication Reconciliation Form rt - SBAR form rt Critical care time excluding procedures: 16:04 Critical care time: Bedside Care: 30 minutes, Consultation: 5 minutes. Total time: 35 rt minutes Signatures: Dispatcher [employer] EDBrooke Montero RN RN hb Botello, Elizabeth eb Oliver, Kathy, RN RN ko1 Willi Salinas MD MD rt Corrections: (The following items were deleted from the chart) 16: 16:04 rt eb
--- NOTE | 2022-08-12 16:06 | RAD REPORT ---
EXAM DESCRIPTION: CT - Chest For Pe Angio - 08/12/2022 3:48 pm CLINICAL HISTORY: sob COMPARISON: June 2022 TECHNIQUE: Dynamically enhanced axial 3 mm thick images of the chest were obtained during administra tion of <100> mL Isovue 370 IV contrast. Coronal and oblique reconstruction images were generated and reviewed. Exam utilizes a protocol for optimal evaluation of pulmonary arterial tree. Maximum intensity projections 3D imaging was utilized All CT scans are performed using dose optimization technique as appropriate and may include automated exposure control or mA/KV adjustment according to patient size. FINDINGS: A pulmonary embolus is not seen. A thoracic aortic aneurysm is not noted. Small bilateral pleural effusions. A pericardial effusion is not seen. COPD. Moderate bilateral pulmonary opacities IMPRESSION: Negative for a pulmonary embolism. Moderate bilateral pulmonary opacities with small pleural effusions likely CHF
--- NOTE | 2022-08-12 16:09 | RAD REPORT ---
EXAM DESCRIPTION: Jaime Single View08/12/2022 1:29 pm CLINICAL HISTORY: sob COMPARISON: July 29, 2022 FINDINGS: Moderate bilateral pulmonary opacities Heart is mildly to moderately enlarged. Small bilateral pleural effusions IMPRESSION: CHF
--- NOTE | 2022-08-12 16:25 | P.HP ---
Certification for Inpatient With expected LOS: >2 Midnights Practitioner: I am a practitioner with admitting privileges, knowledge of patient current condition, hospital course, and medical plan of care. Services: Services provided to patient in accordance with Admission requirements found in Title 42 Section 412.3 of the Code of Federal Regulations Patient History Date of Service: 08/12/22 Reason for admission: Respiratory failure History of Present Illness: Patient is 66 years of age well-known to me with recurrent hospital admissions for severe hypoxemia shortness of breath recently discharged by me at the office according to the son she was doing well yesterday suddenly became more short of breath chest x-ray shows a significant worsening history of presumed COPD any fever or chills currently on BiPAP Allergies codeine Allergy (Mild, Verified 07/23/22 16:33) Itching Home Medications: Ca/D3/Mag Ox/Zinc/Machinery Dismantler/Nakul/Bor [Calcium 600-Vit D3-Min Chew Tb] 2 each PO DAILY 07/20/22 Montelukast [Singulair*] 10 mg PO BEDTIME 07/20/22 Multivitamin [Multiple Vitamins] 1 each PO DAILY 07/20/22 Omeprazole 20 mg PO DAILY 07/20/22 Fluticasone/Umeclidin/Vilanter [Trelegy Ellipta 200-62.5-25] 1 each IH DAILY #30 aero 07/28/22 Benzonatate [Tessalon Perle*] 100 mg PO TID PRN #30 cap 07/30/22 Cetirizine HCl [Zyrtec] 10 mg PO DAILY #30 tab 07/30/22 Fluticasone [Flonase 50MCG Nasal [place]*] 2 sprays ABHISHEK BID #1 btl 07/30/22 Furosemide [Lasix*] 40 mg PO DAILY #30 tab 07/30/22 Guaifen W/Codeine Syrup [ROBITUSSIN A-C Syrup*] 5 ml PO QID PRN #100 ml 07/30/22 Ipratropium Neb [Atrovent*] 0.5 mg NEB Q7HMLKR PRN #120 amp 07/30/22 Metoprolol Tartrate [Lopressor*] 50 mg PO BID #60 tab 07/30/22 Nebulizer 1 each NEB QID #1 unit 07/30/22 Oxymetazoline 0.05% [Afrin] 1 appl ABHISHEK BID 4 Days #1 btl 07/30/22 Spironolactone [Aldactone*] 25 mg PO BID #60 tab 07/30/22 predniSONE [Deltasone*] 10 mg PO BIDL #8 tab 07/30/22 - Past Medical/Surgical History Diabetic: No -: cardiomyopathy -: COPD -: Hypertension -: -: Wrist surgery Psychosocial/ Personal History: Patient lives at home with her daughter - Social History Alcohol use: No CD- Drugs: No Caffeine use: Yes Review of Systems General: Weakness Respiratory: Shortness of Breath Physical Examination - Vital Signs Temperature: 97.7 F Blood Pressure: 114/67 Pulse: 117 Respirations: 38 - Physical Exam General: Alert, Severe distress HEENT: Atraumatic Neck: Supple Respiratory: Crackles/rales (Nephric and crackles noted at the left base) Cardiovascular: No edema, Regular rate/rhythm, Normal S1 S2 Gastrointestinal: Normal bowel sounds, Soft and benign Musculoskeletal: No clubbing, No contractures - Studies Laboratory Data (last 24 hrs) 08/12/22 12:43: PT 16.8 H, INR 1.53, APTT 29.1 08/12/22 12:43: WBC 19.00 H, Hgb 12.4, Hct 38.0, Plt Count 360 08/12/22 12:43: Sodium 135 L, Potassium 4.3, BUN 19 H, Creatinine 1.42 H, Glucose 147 H, Magnesium 2.1, Total Bilirubin 1.4 H, AST 25, ALT 16, Alkaline Phosphatase 94 Assessment and Plan - Problems (Diagnosis) (1) Respiratory failure Current Visit: No Status: Acute Plan: Patient is 66 years of age recurrent hospital admissions with respiratory failure which is recently discharged readmitted again with significant worsening of her lungs with interstitial changes compared to her prior CT scan patient appears to be very hypoxic elevated white count BNP is over 9000 admit continue with BiPAP titrate sat to 90% diuresis echocardiogram showed a normal ventricular function there is no previous diagnosis of pulmonary fibrosis Qualifiers: Chronicity: acute on chronic - Advance Directives Does patient have a Living Will: No Does patient have a Durable POA for Healthcare: No
[2022-08-12 16:57] LABS: SARS-COV-2 RT PCR NEGATIVE (NEGATIVE)
[2022-08-12] MEDS: METHYLPREDNISOLONE 125 MG INJ IV SCH (20:26)
[2022-08-12] MEDS: CEFEPIME 1 GM in NA CHLORIDE 0.9% 100 ML IV SCH (20:26)
[2022-08-13 04:27] LABS: Absolute Lymphocytes (CBC) 0.7 K/uL (0.7-4.9); Hematocrit 32.4 % (36.0-45.0); Lymphocytes % 8.7 % (15.3-44.8); MCV 91.5 fL (80-100); MPV 7.2 fL (7.6-11.3); RBC Red Blood Cell Count 3.54 M/uL (3.86-4.86)
[2022-08-13 04:32] LABS: Albumin 1.8 g/dL (3.4-5.0); Bilirubin Total 0.5 mg/dL (0.2-1.0); Potassium 3.9 mmol/L (3.5-5.1)
[2022-08-13] MEDS ORDERED: CEFEPIME 1 GM/VIAL ONE (08:33)
[2022-08-13] MEDS ORDERED: NA CHLORIDE 0.9% 100 ML ONE (08:34)
[2022-08-13] MEDS: METHYLPREDNISOLONE 125 MG INJ IV SCH ×2 (08:40→21:42)
[2022-08-13] MEDS: CEFEPIME 1 GM in NA CHLORIDE 0.9% 100 ML IV SCH ×2 (08:41→21:42)
--- NOTE | 2022-08-13 08:46 | RAD REPORT ---
EXAM DESCRIPTION: RAD - Chest Single View - 08/13/2022 6:22 am CLINICAL HISTORY: Respiratory failure Chest pain. COMPARISON: Chest Single View dated 08/12/2022; Chest Single View dated 07/29/2022; Chest Single View dated 07/24/2022; Chest Single View dated 07/23/2022 FINDINGS: Portable technique limits examination quality. Moderate patchy airspace opacities seen in both lower lungs, slightly progressive since earlier study . This may represent pulmonary edema or pneumonia. The heart is moderately enlarged.
[2022-08-13] MEDS ORDERED: FUROSEMIDE 40 MG/4 ML VIAL IV SCH (09:00)
--- NOTE | 2022-08-13 10:20 | P.PN ---
Subjective Date of Service: 08/13/22 Chief Complaint: Respiratory failure No change in patient's condition since still continues to remain very hypoxic requiring positive pressure ventilation Review of Systems General: Weakness Respiratory: Shortness of Breath Physical Examination - Vital Signs Temperature: 98 F Blood Pressure: 130/77 Pulse: 88 Respirations: 30 Pulse Ox (%): 98 - Physical Exam General: Alert, Oriented x3, Moderate distress Respiratory: Crackles/rales Cardiovascular: No edema, Regular rate/rhythm (Crackles), Normal S1 S2 - Studies Laboratory Data (last 24 hrs) 08/12/22 12:43: PT 16.8 H, INR 1.53, APTT 29.1 08/12/22 12:43: WBC 19.00 H, Hgb 12.4, Hct 38.0, Plt Count 360 08/12/22 12:43: Sodium 135 L, Potassium 4.3, BUN 19 H, Creatinine 1.42 H, Glucose 147 H, Magnesium 2.1, Total Bilirubin 1.4 H, AST 25, ALT 16, Alkaline Phosphatase 94 Assessment And Plan - Current Problems (Diagnosis) (1) Respiratory failure Current Visit: No Status: Acute Plan: Patient is 66 years of age admitted with respiratory failure significant worsening of her chest x-ray very prominent interstitial changes compared to a prior CAT scan continue with aggressive diuresis antibiotics and steroids labs reviewed increase Lasix to 40 mg twice a day add spironolactone Qualifiers: Chronicity: acute on chronic
[2022-08-13] MEDS: SPIRONOLACTONE 25 MG TABLET PO SCH ×2 (11:23→21:41)
[2022-08-13] MEDS ORDERED: INFLUENZA VACCINE (for 6+ mo) 0.5 ML DOSE IMVAC ONE (14:00)
[2022-08-13] MEDS: FUROSEMIDE 40 MG/4 ML VIAL IV SCH (16:12)
[2022-08-13] MEDS: carvediloL 12.5 MG TAB PO SCH (16:12)
--- NOTE | 2022-08-14 07:09 | RAD REPORT ---
EXAM DESCRIPTION: RAD - Chest Single View - 08/14/2022 5:46 am CLINICAL HISTORY: Respiratory failure COMPARISON: Portable August 13 TECHNIQUE: AP portable chest image was obtained 08/14/2022 5:46 am . FINDINGS: Extensive interstitial and patchy alveolar opacities again noted in the mid and lower lung bowers. Pattern is stable. Each apex is clear of acute process. Cardiac silhouette remains upper normal to enlarged slightly. Upper lobe vasculature within normal l imits. No measurable pleural effusion and no pneumothorax. No acute bony abnormality seen. No acute aortic findings suspected. IMPRESSION: Extensive interstitial and patchy alveolar opacification in each lower lung field. Chest findings are stable from August 13.
[2022-08-14] MEDS: carvediloL 12.5 MG TAB PO SCH ×2 (08:53→16:42)
[2022-08-14] MEDS: FUROSEMIDE 40 MG/4 ML VIAL IV SCH ×2 (08:53→16:42)
[2022-08-14] MEDS: SPIRONOLACTONE 25 MG TABLET PO SCH ×2 (08:54→20:34)
[2022-08-14] MEDS: METHYLPREDNISOLONE 40 MG INJ IV SCH ×2 (08:58→20:33)
[2022-08-14] MEDS ORDERED: CEFEPIME 1 GM/VIAL ONE (08:58)
[2022-08-14] MEDS ORDERED: NA CHLORIDE 0.9% 100 ML ONE (08:59)
[2022-08-14] MEDS: CEFEPIME 1 GM in NA CHLORIDE 0.9% 100 ML IV SCH ×2 (08:59→20:33)
--- NOTE | 2022-08-14 12:19 | P.PN ---
Subjective Date of Service: 08/14/22 Chief Complaint: Respiratory failure Patient states she is feeling better she is now short of breath Review of Systems General: Weakness Physical Examination - Vital Signs Temperature: 98.0 F Blood Pressure: 145/69 Pulse: 84 Respirations: 21 Pulse Ox (%): 99 - Physical Exam General: Alert, In no apparent distress, Moderate distress Respiratory: Crackles/rales Cardiovascular: No edema, Regular rate/rhythm, Normal S1 S2 Assessment And Plan - Current Problems (Diagnosis) (1) Respiratory failure Current Visit: No Status: Acute Plan: Patient admitted with respiratory failure continue with present therapy renal function is improving continue with high-dose Lasix diuretics antibiotics chest x-ray no change Qualifiers: Chronicity: acute on chronic
--- NOTE | 2022-08-14 15:35 | EKG ---
Test Date: 2022-08-12 Test Time: 12:46:48 Process Consultant: COLLIN MEASUREMENT RESULTS: Intervals: Rate: 117 [place]: 160 QRSD: 68 QT: 316 QTc: 440 [place]: P: 48 NJ: 160 QRS: 47 T: 41 INTERPRETIVE STATEMENTS: Sinus tachycardia Possible Left atrial enlargement Low voltage QRS Cannot rule out Anterior infarct, age undetermined Abnormal ECG Compared to ECG 07/24/2022 21:50:57 Low QRS voltage now present Myocardial infarct finding now present T-wave abnormality no longer present Possible ischemia no longer present Electronically Signed On 08-14-22 15:30:36 COORDINATOR SKILL TRAINING PROGRAM by Thierry Crenshaw
[2022-08-15 07:16] LABS: Absolute Lymphocytes (CBC) 0.5 K/uL (0.7-4.9); Hematocrit 30.3 % (36.0-45.0); Lymphocytes % 6.5 % (15.3-44.8); MCV 90.9 fL (80-100); MPV 7.1 fL (7.6-11.3); RBC Red Blood Cell Count 3.33 M/uL (3.86-4.86)
[2022-08-15 07:29] LABS: Magnesium 2.5 mg/dL (1.8-2.4); Potassium 3.6 mmol/L (3.5-5.1)
[2022-08-15] MEDS ORDERED: POTASSIUM 25 MEQ EFFERV TAB PO ONE (07:36)
--- NOTE | 2022-08-15 07:54 | RAD REPORT ---
EXAM DESCRIPTION: Jaime Single View08/15/2022 5:32 am CLINICAL HISTORY: Respiratory failure COMPARISON: August 14, 2022 FINDINGS: No significant change in the diffuse bilateral pulmonary opacities. Heart remains enlarged IMPRESSION: No significant change in the diffuse bilateral pulmonary opacities
[2022-08-15] MEDS: FUROSEMIDE 40 MG/4 ML VIAL IV SCH ×2 (09:44→16:11)
[2022-08-15] MEDS: SPIRONOLACTONE 25 MG TABLET PO SCH ×2 (09:45→21:09)
[2022-08-15] MEDS: carvediloL 12.5 MG TAB PO SCH ×2 (09:45→16:11)
[2022-08-15] MEDS: METHYLPREDNISOLONE 40 MG INJ IV SCH ×2 (09:46→21:09)
[2022-08-15] MEDS: CEFEPIME 1 GM in NA CHLORIDE 0.9% 100 ML IV SCH ×2 (10:38→21:08)
--- NOTE | 2022-08-15 12:25 | P.PN ---
Subjective Date of Service: 08/15/22 Chief Complaint: Respiratory failure Patient feels better still continues to remain very hypoxic x-ray no change Review of Systems General: Weakness Respiratory: Shortness of Breath Physical Examination - Vital Signs Temperature: 97.1 F Blood Pressure: 125/74 Pulse: 85 Respirations: 17 Pulse Ox (%): 96 - Physical Exam General: Alert, In no apparent distress, Mild distress Respiratory: Clear to auscultation bilaterally, Diminished Cardiovascular: No edema, Regular rate/rhythm, Normal S1 S2 Assessment And Plan - Current Problems (Diagnosis) (1) Respiratory failure Current Visit: No Status: Acute Plan: Patient has respiratory failure continue with aggressive diuresis is on Lasix spironolactone antibiotics and steroid x-ray again shows no significant change titrate sat to 90% prognosis for function did improve some cultures are negative Qualifiers: Chronicity: acute on chronic
--- NOTE | 2022-08-15 18:16 | P.PN ---
Date of Service: 08/15/22 Subjective: improving ,slowly no worsening of symptoms O2 weaned slightly, +cough ROS: 10 point ROS as noted above, otherwise negative Physical exam GEN: Alert, oriented, NAD HEENT: Normal conjunctiva, sclera anicteric CV: Regular rate and rhythm, no edema Pulm: Nonlabored respirations on HFNC ABD: Soft, nontender, nondistended Neuro: Normal speech, normal affect Problem List acute hypoxemic respiratiory failure Acute on chronic COPD with exacerbation h/o Afib LEOBARDO Epistaxis Hypertension Cardiomyopathy/CHF, diastolic acute on chronic COPD exacerbation acute CHF exacerbation, diastolic CT with diffuse emphysematous changes, pulm edema continue home trelegy pulm consulted steroids, ICS wean O2 as tolerated lasix continue cefepime h/o afib, new diagnosis last admission continue home meds Code: Full Dispo: Home,~2-3 days has home O2 Time Spent Managing Pts Care (In Minutes): 35
[2022-08-16 06:41] LABS: Hematocrit 31.5 % (36.0-45.0); MCV 90.9 fL (80-100); RBC Red Blood Cell Count 3.47 M/uL (3.86-4.86)
[2022-08-16 06:55] LABS: Magnesium 2.5 mg/dL (1.8-2.4); Potassium 3.9 mmol/L (3.5-5.1)
--- NOTE | 2022-08-16 08:27 | RAD REPORT ---
EXAM DESCRIPTION: RAD - Chest Single View - 08/16/2022 5:29 am CLINICAL HISTORY: Respiratory failure Chest pain. COMPARISON: Chest Single View dated 08/15/2022; Chest Single View dated 08/14/2022; Chest Single Vie w dated 08/13/2022; Chest Single View dated 08/12/2022 FINDINGS: Portable technique limits examination quality. Since 08/15/2022, there has mild improvement in bilateral pulmonary opacities noted. The heart is mod erately enlarged in size. No displaced fractures. IMPRESSION: Mild improvement in lung aeration since yesterday's study.
[2022-08-16] MEDS: FUROSEMIDE 40 MG/4 ML VIAL IV SCH ×2 (09:34→17:50)
[2022-08-16] MEDS: carvediloL 12.5 MG TAB PO SCH ×2 (09:35→17:50)
[2022-08-16] MEDS: METHYLPREDNISOLONE 40 MG INJ IV SCH ×2 (09:35→21:39)
[2022-08-16] MEDS: ENOXAPARIN 40 MG/0.4 ML SQ SCH (09:35)
[2022-08-16] MEDS: CEFEPIME 1 GM in NA CHLORIDE 0.9% 100 ML IV SCH (09:35)
[2022-08-16] MEDS: SPIRONOLACTONE 25 MG TABLET PO SCH ×2 (09:35→21:38)
--- NOTE | 2022-08-16 12:03 | P.PN ---
Subjective Date of Service: 08/16/22 Chief Complaint: Respiratory failure Patient is improving objectively feels better chest x-ray has also improved Review of Systems General: Weakness Respiratory: Shortness of Breath Physical Examination - Vital Signs Temperature: 97.2 F Blood Pressure: 133/70 Pulse: 84 Respirations: 21 Pulse Ox (%): 96 - Physical Exam General: Alert, Oriented x3, Moderate distress Respiratory: Clear to auscultation bilaterally Cardiovascular: No edema, Normal S1 S2 Assessment And Plan - Current Problems (Diagnosis) (1) Respiratory failure Current Visit: No Status: Acute Plan: Patient admitted with respiratory failure improving titrate sat down to 90% no clinical evidence of sepsis DC cefepime renal function is stable white count normal chest x-ray slight improved continue with steroids Qualifiers: Chronicity: acute on chronic
--- NOTE | 2022-08-16 14:45 | P.PN ---
Date of Service: 08/16/22 Subjective: improving ,slowly feels better today still requiring HFNC no new/worsening symptoms ROS: 10 point ROS as noted above, otherwise negative Physical exam GEN: Alert, oriented, NAD HEENT: Normal conjunctiva, sclera anicteric CV: Regular rate and rhythm, no edema Pulm: Nonlabored respirations on HFNC, b/l wheeze ABD: Soft, nontender, nondistended Neuro: Normal speech, normal affect Problem List acute hypoxemic respiratiory failure Acute on chronic COPD with exacerbation h/o Afib LEOBARDO Epistaxis Hypertension Cardiomyopathy/CHF, diastolic acute on chronic COPD exacerbation acute CHF exacerbation, diastolic CT with diffuse emphysematous changes, pulm edema continue home trelegy pulm consulted steroids, ICS wean O2 as tolerated lasix continue cefepime for now, no evidence of sepsis, will discuss with pulm, possibly discontinue slowly improving has home O2 CXR (08/16): improved aeration h/o afib, new diagnosis last admission continue home meds Code: Full Dispo: Home,~2-3 days has home O2 Time Spent Managing Pts Care (In Minutes): 25
[2022-08-16] MEDS: PANTOPRAZOLE 40MG TABLET PO SCH (15:37)
[2022-08-17 04:52] LABS: Magnesium 2.3 mg/dL (1.8-2.4); Potassium 3.9 mmol/L (3.5-5.1)
[2022-08-17] MEDS: PANTOPRAZOLE 40MG TABLET PO SCH (06:24)
[2022-08-17] MEDS: carvediloL 12.5 MG TAB PO SCH ×2 (08:10→16:28)
[2022-08-17] MEDS: ENOXAPARIN 40 MG/0.4 ML SQ SCH (08:10)
[2022-08-17] MEDS: FUROSEMIDE 40 MG/4 ML VIAL IV SCH (08:10)
[2022-08-17] MEDS: METHYLPREDNISOLONE 40 MG INJ IV SCH ×2 (08:10→20:25)
[2022-08-17] MEDS: SPIRONOLACTONE 25 MG TABLET PO SCH ×2 (08:10→20:16)
[2022-08-17] MEDS: HOME MED 1 EA UNK (Fluticasone/Umeclidin/Vilanter [Trelegy Ellipta 200-62.5-25] Blst.W.Dev IH SCH (08:16)
--- NOTE | 2022-08-17 14:28 | P.PN ---
Date of Service: 08/17/22 Subjective: feels she is improving - breathing easier / more energy/appetite still on HFNC no new/worsening symptoms ROS: 10 point ROS as noted above, otherwise negative Physical exam GEN: Alert, oriented, NAD HEENT: Normal conjunctiva, sclera anicteric CV: Regular rate and rhythm, no edema Pulm: Nonlabored respirations on HFNC, b/l wheeze ABD: Soft, nontender, nondistended Neuro: Normal speech, normal affect Problem List acute hypoxemic respiratiory failure Acute on chronic COPD with exacerbation h/o Afib LEOBARDO Epistaxis Hypertension Cardiomyopathy/CHF, diastolic acute on chronic COPD exacerbation acute CHF exacerbation, diastolic CT with diffuse emphysematous changes, pulm edema continue home trelegy pulm consulted steroids, ICS wean O2 as tolerated decrease lasix pulm dc'd cefepime 08/16, no evidence of sepsis slowly improving has home O2 CXR (08/16): improved aeration h/o afib, new diagnosis last admission continue home meds Code: Full Dispo: Home,~2 days has home O2 once weaned off HFNC Time Spent Managing Pts Care (In Minutes): 25
[2022-08-18 04:05] LABS: Hematocrit 34.3 % (36.0-45.0); MCV 92.1 fL (80-100); MPV 7.6 fL (7.6-11.3); RBC Red Blood Cell Count 3.72 M/uL (3.86-4.86)
[2022-08-18 05:38] LABS: Potassium 4.1 mmol/L (3.5-5.1)
[2022-08-18] MEDS: PANTOPRAZOLE 40MG TABLET PO SCH (06:34)
[2022-08-18] MEDS: carvediloL 12.5 MG TAB PO SCH ×2 (08:11→17:38)
[2022-08-18] MEDS: FUROSEMIDE 40 MG/4 ML VIAL IV SCH (08:11)
[2022-08-18] MEDS: SPIRONOLACTONE 25 MG TABLET PO SCH ×2 (08:11→20:18)
[2022-08-18] MEDS: METHYLPREDNISOLONE 40 MG INJ IV SCH (08:12)
[2022-08-18] MEDS: HOME MED 1 EA UNK (Fluticasone/Umeclidin/Vilanter [Trelegy Ellipta 200-62.5-25] Blst.W.Dev IH SCH (08:12)
[2022-08-18] MEDS: ENOXAPARIN 40 MG/0.4 ML SQ SCH (08:12)
--- NOTE | 2022-08-18 08:44 | RAD REPORT ---
EXAM DESCRIPTION: Jaime Single View08/18/2022 6:48 am CLINICAL HISTORY: Chest pain COMPARISON: August 17, 2022 FINDINGS: Mild improvement in the bilateral pulmonary opacities No other change IMPRESSION: Mild improvement in the bilateral pulmonary opacities which may represent pneumonia
--- NOTE | 2022-08-18 11:16 | P.PN ---
Subjective Date of Service: 08/18/22 Chief Complaint: Respiratory failure Subjective: Improving Patient is feeling better improving oxygen requirements declining Review of Systems General: Weakness Respiratory: Shortness of Breath Physical Examination - Vital Signs Temperature: 97.0 F Blood Pressure: 131/71 Pulse: 50 Respirations: 17 Pulse Ox (%): 100 - Physical Exam General: Alert, In no apparent distress, Oriented x3 Respiratory: Crackles/rales (Still has some crackles) Cardiovascular: No edema, Regular rate/rhythm - Studies Microbiology Data (last 24 hrs): 08/12/22 14:02 Blood - Blood Aerobic Blood Culture - Final No growth in 5 days. 08/12/22 14:02 Blood - Blood Anaerobic Blood Culture - Final No growth in 5 days. 08/12/22 12:44 Blood - Blood Aerobic Blood Culture - Final No growth in 5 days. 08/12/22 12:44 Blood - Blood Anaerobic Blood Culture - Final No growth in 5 days. Assessment And Plan - Current Problems (Diagnosis) (1) Respiratory failure Current Visit: No Status: Acute Plan: Patient admitted with respiratory failure is steadily improving labs reviewed white count is mildly elevated chest x-ray is also improved change to p.o. prednisone add metolazone Qualifiers: Chronicity: acute on chronic Plan to discharge in: Greater than 2 days
[2022-08-18] MEDS: METOLAZONE 2.5 MG TABLET PO SCH (12:17)
--- NOTE | 2022-08-18 15:46 | P.PN ---
Date of Service: 08/18/22 Subjective: feels continued improvement each day O2 slowly weaning down no new / worsening symptoms continues with cough ROS: 10 point ROS as noted above, otherwise negative Physical exam GEN: Alert, oriented, NAD HEENT: Normal conjunctiva, sclera anicteric CV: Regular rate and rhythm, no edema Pulm: Nonlabored respirations on nonrebreather, mild b/l wheeze ABD: Soft, nontender, nondistended Neuro: Normal speech, normal affect Problem List acute hypoxemic respiratiory failure Acute on chronic COPD with exacerbation h/o Afib LEOBARDO Epistaxis Hypertension Cardiomyopathy/CHF, diastolic acute on chronic COPD exacerbation acute CHF exacerbation, diastolic CT with diffuse emphysematous changes, pulm edema continue home trelegy pulm consulted steroids, ICS - transition to PO prednisone 08/18 wean O2 as tolerated decreased lasix 08/17 pulm dc'd cefepime 08/16, no evidence of sepsis slowly improving has home O2 CXR (08/16): improved aeration h/o afib, new diagnosis last admission continue home meds has not ambulated much due to oxygen requirement, only a few steps /pivots to bedside commode PT eval once on nasal cannula Code: Full Dispo: Home,~2-3 days has home O2 once weaned off HFNC down to nasal cannula Time Spent Managing Pts Care (In Minutes): 25
[2022-08-18] MEDS: predniSONE 20 MG TAB PO SCH (20:18)
[2022-08-19 03:57] LABS: Hematocrit 34.2 % (36.0-45.0); MCV 90.6 fL (80-100); MPV 7.4 fL (7.6-11.3); RBC Red Blood Cell Count 3.78 M/uL (3.86-4.86)
[2022-08-19 04:10] LABS: Potassium 3.7 mmol/L (3.5-5.1)
[2022-08-19] MEDS: PANTOPRAZOLE 40MG TABLET PO SCH (05:38)
[2022-08-19] MEDS: HOME MED 1 EA UNK (Fluticasone/Umeclidin/Vilanter [Trelegy Ellipta 200-62.5-25] Blst.W.Dev IH SCH (09:00)
--- NOTE | 2022-08-19 09:04 | P.PN ---
Date of Service: 08/19/22 Subjective: feels continued improvement each day O2 requirement labile last night no worsening of symptoms slight increase in cough, sore throat from dry oxygen ROS: 10 point ROS as noted above, otherwise negative Physical exam GEN: Alert, oriented, NAD HEENT: Normal conjunctiva, sclera anicteric CV: Regular rate and rhythm, no edema Pulm: Nonlabored respirations on HFNC ABD: Soft, nontender, nondistended Neuro: Normal speech, normal affect Problem List acute hypoxemic respiratiory failure Acute on chronic COPD with exacerbation h/o Afib LEOBARDO Epistaxis Hypertension Cardiomyopathy/CHF, diastolic acute on chronic COPD exacerbation acute CHF exacerbation, diastolic CT with diffuse emphysematous changes, pulm edema continue home trelegy, restarted 08/17; should help pulm consulted steroids, ICS - transitioned to PO prednisone 08/18 wean O2 as tolerated decreased lasix 08/17 pulm dc'd cefepime 08/16, no evidence of sepsis slowly improving, O2 weaning has home O2 CXR (08/16): improved aeration h/o afib, new diagnosis last admission continue home meds has not ambulated much due to oxygen requirement, only a few steps /pivots to bedside commode PT eval once on nasal cannula Code: Full Dispo: Home,~2-3 days has home O2 once weaned off HFNC down to nasal cannula Time Spent Managing Pts Care (In Minutes): 25
[2022-08-19] MEDS: ENOXAPARIN 40 MG/0.4 ML SQ SCH (09:14)
[2022-08-19] MEDS: METOLAZONE 2.5 MG TABLET PO SCH (09:14)
[2022-08-19] MEDS: predniSONE 20 MG TAB PO SCH ×2 (09:15→21:23)
[2022-08-19] MEDS: carvediloL 12.5 MG TAB PO SCH ×2 (09:15→16:39)
[2022-08-19] MEDS: FUROSEMIDE 40 MG/4 ML VIAL IV SCH (09:15)
[2022-08-19] MEDS: SPIRONOLACTONE 25 MG TABLET PO SCH ×2 (09:15→21:20)
[2022-08-19] MEDS ORDERED: ACETAMINOPHEN 500 MG TAB PO ONE (20:53)
[2022-08-19] MEDS ORDERED: BENZONATATE 100 MG CAP PO PRN (20:53)
[2022-08-19] MEDS: ENSURE ENLIVE 237 ML CAN PO SCH (21:00)
[2022-08-20] MEDS: PANTOPRAZOLE 40MG TABLET PO SCH (06:08)
--- NOTE | 2022-08-20 07:46 | RAD REPORT ---
EXAM DESCRIPTION: RAD - Chest Single View - 08/20/2022 6:32 am CLINICAL HISTORY: hypoxia, copd COMPARISON: Chest Single View dated 08/18/2022; Chest Single View dated 08/16/2022; Chest Single Vie w dated 08/15/2022; Chest Single View dated 08/14/2022; Chest For Pe Angio dated 08/12/2022 FINDINGS: Lines: None. Lungs: Unchanged basilar airspace disease. Emphysema. Pleural: Small effusions. Cardiac: Cardiomegaly Mediastinum: Within normal limits. Bones: No acute fractures. Other: None IMPRESSION: Moderate predominantly basilar airspace disease that remains concerning for pneumonia an d/or edema.
[2022-08-20] MEDS: ENOXAPARIN 40 MG/0.4 ML SQ SCH (08:50)
[2022-08-20] MEDS: FUROSEMIDE 40 MG/4 ML VIAL IV SCH (08:51)
[2022-08-20] MEDS: predniSONE 20 MG TAB PO SCH ×2 (08:51→21:02)
[2022-08-20] MEDS: carvediloL 12.5 MG TAB PO SCH ×2 (08:51→16:58)
[2022-08-20] MEDS: METOLAZONE 2.5 MG TABLET PO SCH (08:51)
[2022-08-20] MEDS: SPIRONOLACTONE 25 MG TABLET PO SCH ×2 (08:51→21:02)
[2022-08-20] MEDS: ENSURE ENLIVE 237 ML CAN PO SCH ×2 (08:52→21:00)
[2022-08-20] MEDS: HOME MED 1 EA UNK (Fluticasone/Umeclidin/Vilanter [Trelegy Ellipta 200-62.5-25] Blst.W.Dev IH SCH (08:52)
--- NOTE | 2022-08-20 15:11 | P.PN ---
Date of Service: 08/20/22 Subjective: feels continued improvement each day however o2 requirement minimal improvement each day ROS: 10 point ROS as noted above, otherwise negative Physical exam GEN: Alert, oriented, NAD CV: Regular rate and rhythm, no edema Pulm: Nonlabored respirations on HFNC ABD: Soft, nontender, nondistended Neuro: Normal speech, normal affect Problem List acute hypoxemic respiratiory failure Acute on chronic COPD with exacerbation h/o Afib LEOBARDO Epistaxis Hypertension Cardiomyopathy/CHF, diastolic acute on chronic COPD exacerbation acute CHF exacerbation, diastolic CT with diffuse emphysematous changes, pulm edema continue home trelegy, restarted 08/17; should help pulm consulted steroids, ICS - transitioned to PO prednisone 08/18 wean O2 as tolerated decreased lasix 08/17 pulm dc'd cefepime 08/16, no evidence of sepsis; procalcitonin continued to improve slowly improving, O2 weaning has home O2 CXR (08/16): improved aeration h/o afib, new diagnosis last admission continue home meds has not ambulated much due to oxygen requirement, only a few steps /pivots to bedside commode PT eval once on nasal cannula Code: Full Dispo: possible LTAC candidate. patient with slow progression over last few days still requiring HFNC, but otherwise feels she is improving discussed with patient on 08/20, she is reluctant has home O2 Time Spent Managing Pts Care (In Minutes): 25
[2022-08-20] MEDS: ACETAMINOPHEN 325 MG TABLET PO PRN (22:34)
[2022-08-21 04:31] LABS: Hematocrit 36.1 % (36.0-45.0); MCV 91.3 fL (80-100); MPV 8.1 fL (7.6-11.3); RBC Red Blood Cell Count 3.96 M/uL (3.86-4.86)
[2022-08-21 04:35] LABS: Magnesium 2.4 mg/dL (1.8-2.4); Potassium 3.7 mmol/L (3.5-5.1)
[2022-08-21] MEDS: PANTOPRAZOLE 40MG TABLET PO SCH (05:38)
[2022-08-21] MEDS ORDERED: POLYETHYL GLY 3350 17 GM/DOSE PO PRN (08:22)
[2022-08-21] MEDS: DOCUSATE NA 100 MG CAP PO SCH ×2 (08:45→21:42)
[2022-08-21] MEDS: ACETAMINOPHEN 325 MG TABLET PO PRN (08:46)
[2022-08-21] MEDS: predniSONE 20 MG TAB PO SCH (08:46)
[2022-08-21] MEDS: carvediloL 12.5 MG TAB PO SCH ×2 (08:46→17:05)
[2022-08-21] MEDS: FUROSEMIDE 40 MG/4 ML VIAL IV SCH (08:46)
[2022-08-21] MEDS: ENOXAPARIN 40 MG/0.4 ML SQ SCH (08:47)
[2022-08-21] MEDS: SPIRONOLACTONE 25 MG TABLET PO SCH ×2 (08:47→21:00)
[2022-08-21] MEDS: HOME MED 1 EA UNK (Fluticasone/Umeclidin/Vilanter [Trelegy Ellipta 200-62.5-25] Blst.W.Dev IH SCH (08:48)
[2022-08-21] MEDS: METOLAZONE 2.5 MG TABLET PO SCH (08:50)
[2022-08-21] MEDS: ENSURE ENLIVE 237 ML CAN PO SCH ×2 (08:53→21:00)
--- NOTE | 2022-08-21 11:24 | RAD REPORT ---
EXAM DESCRIPTION: CT - Thorax Wo Con CLINICAL HISTORY: Chest pain prolonged hypoxia, r/o pna, vs effusion/chf COMPARISON: Chest For Pe Angio dated 08/12/2022 FINDINGS: Moderate advanced emphysema is present with lung fibrosis pattern in the lower lobes. No p leural thickening or pleural effusion. No pneumothorax. Mildly patulous esophagus. No axillary, mediastinal or hilar adenopathy. No concerning bony finding. No gross upper abdominal finding. All CT scans are performed using dose optimization technique as appropriate and may include automated exposure control or mA/KV adjustment according to patient size. IMPRESSION: There is fibrotic appearance to the lungs, greatest in the lower lobes superimposed on C OPD.There is somewhat fluid-filled and patulous esophagus also noted. Findings could indicate underly ing scleroderma and clinical correlation is advised.
--- NOTE | 2022-08-21 12:25 | P.PN ---
Subjective Date of Service: 08/21/22 Chief Complaint: Respiratory failure Patient on the whole is improving feeling better still has dyspnea on mild exertion with desaturation x-ray has improved significantly repeat CT scan also reviewed Review of Systems General: Weakness Respiratory: Shortness of Breath Physical Examination - Vital Signs Temperature: 97.0 F Blood Pressure: 104/56 Pulse: 84 Respirations: 20 Pulse Ox (%): 88 - Physical Exam General: Alert, Oriented x3 Neck: Supple Respiratory: Clear to auscultation bilaterally, Diminished Assessment And Plan - Current Problems (Diagnosis) (1) Respiratory failure Current Visit: No Status: Acute Plan: And admitted with respiratory failure and heart failure chest x-ray and CT scan have improved significantly since he still has significant patient refuses to have blood gases will try again not sure if the pulse and pulse oximeter readings are accurate chemistries reviewed patient has severe COPD changes on the CAT scan also order a 2D echo with bubble study to rule out [id number] shunt no evidence of sepsis Qualifiers: Chronicity: acute on chronic
[2022-08-21 15:15] LABS: Arterial Blood Carboxyhemoglob 1.4 % (0-1.5); Blood Gas Oxyhemoglobin 84.4 % (94-97); Blood O2 Saturation 86.7 % (92-98.5)
--- NOTE | 2022-08-21 16:33 | P.PN ---
Date of Service: 08/21/22 Subjective: feels continued improvement each day however o2 requirement minimal improvement each day discussed LTAC yesterday and today, patient reluctant / not interested to hear ROS: 10 point ROS as noted above, otherwise negative Physical exam GEN: Alert, oriented, NAD CV: Regular rate and rhythm, no edema Pulm: Nonlabored respirations on HFNC, b/l wheeze ABD: Soft, nontender, nondistended Neuro: Normal speech, normal affect Problem List acute hypoxemic respiratiory failure Acute on chronic COPD with exacerbation interstitial lung disease, fibrosis h/o Afib LEOBARDO Epistaxis Hypertension Cardiomyopathy/CHF, diastolic acute on chronic COPD exacerbation acute CHF exacerbation, diastolic CT with diffuse emphysematous changes, pulm edema continue home trelegy, restarted 08/17 pulm consulted steroids, ICS - transitioned to PO prednisone 08/18 wean O2 as tolerated decreased lasix 08/17 pulm dc'd cefepime 08/16, no evidence of sepsis; procalcitonin continued to improve slowly improving, O2 weaning has home O2 repeat CT 08/21 - improved aeration, bilateral fibrosis, COPD changes h/o afib, new diagnosis last admission continue home meds has not ambulated much due to oxygen requirement, only a few steps /pivots to bedside commode PT eval once on nasal cannula Code: Full Dispo: possible LTAC candidate. patient with slow progression over last few days. for ongoing treatment / pulm rehab still requiring HFNC, but otherwise feels she is improving discussed with patient on 08/20 and again on 08/21, she is reluctant has home O2 Time Spent Managing Pts Care (In Minutes): 25
[2022-08-21] MEDS: predniSONE 10 MG TAB PO SCH (21:42)
[2022-08-22] MEDS: PANTOPRAZOLE 40MG TABLET PO SCH (05:51)
[2022-08-22 06:07] LABS: Hematocrit 37.2 % (36.0-45.0); MCV 90.3 fL (80-100); MPV 8.3 fL (7.6-11.3); RBC Red Blood Cell Count 4.12 M/uL (3.86-4.86)
[2022-08-22 06:14] LABS: Magnesium 2.4 mg/dL (1.8-2.4); Potassium 3.7 mmol/L (3.5-5.1)
[2022-08-22] MEDS: ACETAMINOPHEN 325 MG TABLET PO PRN ×2 (08:28→19:36)
[2022-08-22] MEDS: ENOXAPARIN 40 MG/0.4 ML SQ SCH (08:29)
[2022-08-22] MEDS: DOCUSATE NA 100 MG CAP PO SCH ×2 (08:29→19:34)
[2022-08-22] MEDS: FUROSEMIDE 40 MG TABLET PO SCH (08:30)
[2022-08-22] MEDS: predniSONE 10 MG TAB PO SCH ×2 (08:30→19:34)
[2022-08-22] MEDS: SPIRONOLACTONE 25 MG TABLET PO SCH ×2 (08:30→19:35)
[2022-08-22] MEDS: ENSURE ENLIVE 237 ML CAN PO SCH ×2 (08:31→19:36)
[2022-08-22] MEDS: carvediloL 12.5 MG TAB PO SCH ×2 (08:31→17:13)
[2022-08-22] MEDS: HOME MED 1 EA UNK (Fluticasone/Umeclidin/Vilanter [Trelegy Ellipta 200-62.5-25] Blst.W.Dev IH SCH (08:56)
--- NOTE | 2022-08-22 13:40 | ECHO ---
HEIGHT: 5 ft 6 in WEIGHT: 163 lb 0 oz DATE OF STUDY: 08/22/[address]: Todd Canchola MD 2-DIMENSIONAL: YES M.MODE: YES DOPPLER: YES COLOR FLOW: YES TDS: YES PORTABLE: YES DEFINITY: NO BUBBLE STUDY: YES DIAGNOSIS: RULE OUT RIGHT TO LEFT SHUNT, HYPOXIC CARDIAC HISTORY: CATHERIZATION: NO SURGERY: NO PROSTHETIC VALVE: NO PACEMAKER: NO MEASUREMENTS (cm) DIASTOLIC (NORMALS) SYSTOLIC (NORMALS) IVSd 1.2 (0.6-1.2) LA Diam 3.2 (1.9-4.0) LVEF 55-60% LVIDd 4.1 (3.5-5.7) LVIDs 3.5 (2.0-3.5) %FS % LVPWd 1.3 (0.6-1.2) Ao Diam 2.3 (2.0-3.7) 2 DIMENSIONAL ASSESSMENT: RIGHT ATRIUM: NORMAL LEFT ATRIUM: NORMAL RIGHT VENTRICLE: NORMAL LEFT VENTRICLE: NORMAL TRICUSPID VALVE: NORMAL MITRAL VALVE: NORMAL PULMONIC VALVE: AORTIC VALVE: PERICARDIAL EFFUSION: NONE AORTIC ROOT: NORMAL LEFT VENTRICULAR WALL MOTION: APPEARS NORMAL. DOPPLER/COLOR FLOW: SEE BELOW. COMMENTS: 1. POOR WINDOWS. 2. NORMAL LEFT VENTRICULAR EJECTION FRACTION 55-60%. 3. MILD PULMONARY AND AORTIC REGURGITATION. 4. BUBBLE STUDY WAS DONE, UNABLE TO EVALUATE DUE TO VERY POOR WINDOWS BUT IT APPEARS NEGATIVE. TECHNOLOGIST: Silverio HANKINS
--- NOTE | 2022-08-22 16:07 | P.PN ---
Subjective Date of Service: 08/22/22 Chief Complaint: Respiratory failure Patient states she feels much better today. She has no new complaint. She is stable on high flow oxygen. Physical Examination - Vital Signs Temperature: 97.5 F Blood Pressure: 95/61 Pulse: 97 Respirations: 19 Pulse Ox (%): 99 Assessment And Plan - Plan Physical exam GEN: Alert, oriented, NAD CV: Regular rate and rhythm, no edema Pulm: Nonlabored breathing, bilateral coarse breath sounds. ABD: Soft, nontender, nondistended Neuro: Normal speech, normal affect Problem List acute hypoxemic respiratiory failure Acute on chronic COPD with exacerbation interstitial lung disease, fibrosis h/o Afib LEOBARDO Epistaxis Hypertension Cardiomyopathy/CHF, diastolic acute on chronic COPD exacerbation acute CHF exacerbation, diastolic CT with diffuse emphysematous changes, pulm edema continue home trelegy. pulm is following Continue oral prednisone, ICS wean O2 as tolerated. Currently on oral Lasix. pulm dc'd cefepime 08/16, no evidence of sepsis; procalcitonin continued to improve slowly improving, Continue to wean oxygen has home O2 repeat CT 08/21 - improved aeration, bilateral fibrosis. h/o afib, new diagnosis last admission continue home meds has not ambulated much due to oxygen requirement, only a few steps /pivots to bedside commode PT to eval once on nasal cannula Code: Full
[2022-08-22] MEDS: SIMETHICONE 80 MG TAB PO PRN (17:13)
[2022-08-23] MEDS: SIMETHICONE 80 MG TAB PO PRN ×3 (05:01→18:10)
[2022-08-23 05:50] LABS: Hematocrit 38.4 % (36.0-45.0); Lymphocytes % 3.9 % (15.3-44.8); MCV 89.6 fL (80-100); MPV 7.9 fL (7.6-11.3); RBC Red Blood Cell Count 4.28 M/uL (3.86-4.86)
[2022-08-23 05:59] LABS: Potassium 3.9 mmol/L (3.5-5.1)
[2022-08-23] MEDS: PANTOPRAZOLE 40MG TABLET PO SCH (06:32)
[2022-08-23 06:46] LABS: Blood Morphology Comment NOT SEEN (NOT SEEN); Platelet Estimate ADEQ; White Blood Cell Scan OK (OK)
[2022-08-23] MEDS: ACETAMINOPHEN 325 MG TABLET PO PRN ×2 (07:08→21:20)
--- NOTE | 2022-08-23 08:34 | RAD REPORT ---
EXAM DESCRIPTION: RAD - Abdomen 1 View (KUB) - 08/23/2022 8:10 am CLINICAL HISTORY: Abdomen pain FINDINGS: Several loops of mildly dilated small bowel. There is air and stool within the colon. This may represent a partial small bowel obstruction or ileus. No significant abnormal calcification is displayed
[2022-08-23] MEDS: carvediloL 12.5 MG TAB PO SCH ×2 (08:55→16:53)
[2022-08-23] MEDS: SPIRONOLACTONE 25 MG TABLET PO SCH ×2 (08:55→21:00)
[2022-08-23] MEDS: DOCUSATE NA 100 MG CAP PO SCH ×2 (08:55→21:15)
[2022-08-23] MEDS: FUROSEMIDE 40 MG TABLET PO SCH (08:55)
[2022-08-23] MEDS: ENOXAPARIN 40 MG/0.4 ML SQ SCH (08:56)
[2022-08-23] MEDS: ENSURE ENLIVE 237 ML CAN PO SCH ×2 (08:57→21:00)
[2022-08-23] MEDS: HOME MED 1 EA UNK (Fluticasone/Umeclidin/Vilanter [Trelegy Ellipta 200-62.5-25] Blst.W.Dev IH SCH (08:57)
[2022-08-23] MEDS: predniSONE 10 MG TAB PO SCH ×2 (09:00→21:15)
--- NOTE | 2022-08-23 12:37 | P.PN ---
Subjective Date of Service: 08/23/22 Chief Complaint: Respiratory failure elevated white count small bowel obstruction Unable to wean down her oxygen complaining of abdominal distention she has some small bowel obstruction White count is now elevated Review of Systems General: Weakness Respiratory: Shortness of Breath Gastrointestinal: Abdominal Pain Physical Examination - Vital Signs Temperature: 97.1 F Blood Pressure: 100/65 Pulse: 93 Respirations: 22 Pulse Ox (%): 91 - Physical Exam General: Alert, Oriented x3, Moderate distress Respiratory: Diminished, Crackles/rales Cardiovascular: No edema, Normal S1 S2 Gastrointestinal: Normal bowel sounds, Tenderness Assessment And Plan - Current Problems (Diagnosis) (1) Respiratory failure Current Visit: No Status: Acute Plan: Patient continues to remain hypoxic a chest x-ray is improved White count is not elevated high risk for superimposed fungal infection or hospital-acquired infections been on steroids for a long time elevated cefepime blood cultures chest x-ray empirically started on Diflucan urinalysis blood pressure is stable repeat echocardiogram with bubble study did not show any significant findings no obvious shunting outpatient lung function test as shown moderate COPD patient is a good candidate for Heller's life is 360 pressure supported oxygenation and ventilation portable equipment Qualifiers: Chronicity: acute on chronic
[2022-08-23] MEDS: FLUCONAZOLE 100 MG TAB PO SCH (13:19)
--- NOTE | 2022-08-23 13:30 | RAD REPORT ---
EXAM DESCRIPTION: RAD - Chest Single View - 08/23/2022 1:19 pm CLINICAL HISTORY: Respiratory failure COMPARISON: Abdomen 1 View (KUB) dated 08/23/2022; Chest Single View dated 08/20/2022; Chest Single View dated 08/18/2022; Chest Single View dated 08/16/2022; Thorax Wo Con dated 08/21/2022 FINDINGS: Lines: None. Lungs: Diffuse coarsening of the pulmonary interstitium. No new consolidative airspace disease . Pleural: No significant pleural effusions or pneumothorax. Cardiac: Cardiomegaly. Mediastinum: Within normal limits. Bones: No acute fractures. Other: None IMPRESSION: Chronic interstitial lung disease without definite evidence of a superimposed acute proc ess.
--- NOTE | 2022-08-23 13:44 | P.PN ---
Subjective Date of Service: 08/23/22 Chief Complaint: Respiratory failure elevated white count small bowel obstruction Patient reporting abdominal pain. She remains on high flow oxygen. She was on oxygen by nasal cannula briefly yesterday. Physical Examination - Vital Signs Temperature: 97.1 F Blood Pressure: 100/65 Pulse: 93 Respirations: 22 Pulse Ox (%): 91 Assessment And Plan - Plan Physical exam GEN: Alert, oriented, NAD CV: Regular rate and rhythm, no edema Pulm: Nonlabored breathing, bilateral coarse breath sounds. ABD: Soft, nontender, nondistended Neuro: Normal speech, normal affect Problem List acute hypoxemic respiratiory failure Acute on chronic COPD with exacerbation interstitial lung disease, fibrosis h/o Afib LEOBARDO Epistaxis Hypertension Cardiomyopathy/CHF, diastolic acute on chronic COPD exacerbation acute CHF exacerbation, diastolic CT with diffuse emphysematous changes, pulm edema continue home trelegy. pulm is following. Unable to wean off high flow oxygen Continue oral prednisone, ICS Currently on oral Lasix. pulm dc'd cefepime 08/16, no evidence of sepsis; procalcitonin continued to improve Continue to wean oxygen repeat CT 08/21 - improved aeration, bilateral fibrosis. h/o afib, new diagnosis during last admission continue home meds Abdominal pain KUB shows ileus. Simethicone for gas. Optimize potassium levels Stool softeners. has not ambulated much due to oxygen requirement, only a few steps /pivots to bedside commode PT for bed mobility. Code: Full
[2022-08-23] MEDS ORDERED: MAGNESIUM HYDROXIDE 8% 30 ML PO PRN (13:47)
[2022-08-23 15:24] LABS: Specific Gravity 1.013 (1.005-1.030); Urine Bilirubin NEGATIVE (Negative); Urine Blood Negative (Negative); Urine Clarity Clear (Clear); Urine Color Light-Yellow (Yellow); Urine Glucose NEGATIVE (Negative); Urine Protein TRACE (Negative); Urine RBC <5 /HPF (None Seen); Urine Urobilinogen Normal (Normal)
[2022-08-23] MEDS ORDERED: CEFEPIME 1 GM in NA CHLORIDE 0.9% 100 ML IV SCH (21:00)
[2022-08-24 04:03] LABS: Absolute Lymphocytes (CBC) 0.7 K/uL (0.7-4.9); Hematocrit 36.7 % (36.0-45.0); Lymphocytes % 2.2 % (15.3-44.8); MCV 90.1 fL (80-100); MPV 8.6 fL (7.6-11.3); RBC Red Blood Cell Count 4.07 M/uL (3.86-4.86)
[2022-08-24 04:33] LABS: Potassium 3.6 mmol/L (3.5-5.1)
[2022-08-24 05:14] LABS: Blood Morphology Comment NOT SEEN (NOT SEEN); Platelet Estimate ADEQ
[2022-08-24] MEDS: PANTOPRAZOLE 40MG TABLET PO SCH (06:08)
[2022-08-24] MEDS: ENOXAPARIN 40 MG/0.4 ML SQ SCH (08:48)
[2022-08-24] MEDS: SIMETHICONE 80 MG TAB PO PRN (08:48)
[2022-08-24] MEDS: SPIRONOLACTONE 25 MG TABLET PO SCH ×2 (08:49→21:00)
[2022-08-24] MEDS: carvediloL 12.5 MG TAB PO SCH ×2 (08:49→16:53)
[2022-08-24] MEDS: FLUCONAZOLE 100 MG TAB PO SCH (08:49)
[2022-08-24] MEDS: FUROSEMIDE 20 MG TABLET PO SCH (08:49)
[2022-08-24] MEDS: predniSONE 10 MG TAB PO SCH ×2 (08:49→21:01)
[2022-08-24] MEDS: DOCUSATE NA 100 MG CAP PO SCH ×2 (08:49→21:02)
[2022-08-24] MEDS: ENSURE ENLIVE 237 ML CAN PO SCH ×2 (08:50→21:00)
[2022-08-24] MEDS: HOME MED 1 EA UNK (Fluticasone/Umeclidin/Vilanter [Trelegy Ellipta 200-62.5-25] Blst.W.Dev IH SCH (08:50)
[2022-08-24] MEDS: Meropenem 1,000 MG in NA CHLORIDE 0.9% 100 ML IV SCH ×2 (08:54→21:01)
[2022-08-24] MEDS: DOXYCYCLINE 100 MG CAP PO SCH ×2 (08:54→21:01)
--- NOTE | 2022-08-24 11:01 | P.PN ---
Subjective Date of Service: 08/24/22 Chief Complaint: Respiratory failure elevated white count small bowel obstruction Patient has no new complaint today. Her oxygen saturation was 91% on 8 L by nasal cannula. Physical Examination - Vital Signs Temperature: 97.2 F Blood Pressure: 127/70 Pulse: 745 Respirations: 18 Pulse Ox (%): 93 Assessment And Plan - Plan Physical exam GEN: Alert, oriented, NAD CV: Regular rate and rhythm, no edema Pulm: Nonlabored breathing, bilateral coarse breath sounds. ABD: Soft, nontender, nondistended Neuro: Normal speech, normal affect Problem List acute hypoxemic respiratiory failure Acute on chronic COPD with exacerbation interstitial lung disease, fibrosis h/o Afib LEOBARDO Epistaxis Hypertension Cardiomyopathy/CHF, diastolic acute on chronic COPD exacerbation acute CHF exacerbation, diastolic continue home trelegy. pulm is following. Weaned oxygen to nasal cannula-8 to 10 L/min Continue oral prednisone, ICS Currently on oral Lasix. pulm dc'd cefepime 08/16, no evidence of sepsis; procalcitonin continued to improve Continue to wean oxygen repeat CT 08/21 - improved aeration, bilateral fibrosis. h/o afib, new diagnosis during last admission continue home meds Abdominal pain KUB shows ileus. Simethicone for gas. Optimize potassium levels Stool softeners. has not ambulated much due to oxygen requirement, only a few steps /pivots to bedside commode Continue PT. Code: Full
--- NOTE | 2022-08-24 12:28 | P.PN ---
Subjective Date of Service: 08/24/22 Chief Complaint: Respiratory failure Patient is steadily improving decreasing oxygen requirement chest x-ray is also improving him and feels better her white count is not significantly elevated Review of Systems General: Weakness Respiratory: Shortness of Breath Physical Examination - Vital Signs Temperature: 97.2 F Blood Pressure: 127/70 Pulse: 745 Respirations: 18 Pulse Ox (%): 93 - Physical Exam General: Alert, Oriented x3, Moderate distress Neck: Supple Respiratory: Clear to auscultation bilaterally, Diminished Assessment And Plan - Current Problems (Diagnosis) (1) Respiratory failure Current Visit: No Status: Acute Plan: Patient continues to improve KUB mild bowel obstruction chest x-ray improving count is not significantly elevated changed to meropenem add p.o. doxycycline also on Diflucan possibility of superimposed fungal infection mildly hyponatremic renal function is slightly worse continue to monitor have ordered high flow oxygen from [facility] Qualifiers: Chronicity: acute on chronic
[2022-08-24] MEDS ORDERED: MAGIC MOUTHWASH 180 ML BTL PO PRN (12:41)
[2022-08-24] MEDS: NYSTATIN 500,000 UNIT/5 ML UDC PO SCH ×2 (15:01→20:58)
[2022-08-24] MEDS: ACETAMINOPHEN 325 MG TABLET PO PRN (21:02)
[2022-08-25] MEDS: SIMETHICONE 80 MG TAB PO PRN ×2 (02:47→07:30)
[2022-08-25] MEDS: ACETAMINOPHEN 325 MG TABLET PO PRN ×2 (02:47→07:06)
[2022-08-25] MEDS: PANTOPRAZOLE 40MG TABLET PO SCH (07:30)
[2022-08-25] MEDS: ENSURE ENLIVE 237 ML CAN PO SCH ×2 (09:00→20:55)
[2022-08-25] MEDS: HOME MED 1 EA UNK (Fluticasone/Umeclidin/Vilanter [Trelegy Ellipta 200-62.5-25] Blst.W.Dev IH SCH (09:00)
[2022-08-25] MEDS: ENOXAPARIN 40 MG/0.4 ML SQ SCH ×2 (09:00→09:21)
[2022-08-25] MEDS: NYSTATIN 500,000 UNIT/5 ML UDC PO SCH ×3 (09:16→20:56)
[2022-08-25] MEDS: carvediloL 12.5 MG TAB PO SCH ×2 (09:17→16:31)
[2022-08-25] MEDS: FLUCONAZOLE 100 MG TAB PO SCH (09:17)
[2022-08-25] MEDS: predniSONE 10 MG TAB PO SCH ×2 (09:17→20:56)
[2022-08-25] MEDS: FUROSEMIDE 20 MG TABLET PO SCH (09:17)
[2022-08-25] MEDS: DOCUSATE NA 100 MG CAP PO SCH ×2 (09:17→20:56)
[2022-08-25] MEDS: DOXYCYCLINE 100 MG CAP PO SCH (09:17)
[2022-08-25] MEDS: SPIRONOLACTONE 25 MG TABLET PO SCH ×2 (09:17→20:54)
[2022-08-25] MEDS: Meropenem 1,000 MG in NA CHLORIDE 0.9% 100 ML IV SCH ×2 (09:18→20:55)
[2022-08-25] MEDS ORDERED: BISACODYL 10 MG RECTAL SUPP PR ONE (09:32)
[2022-08-25] MEDS ORDERED: MORPHINE 2 MG/ML SYR IV ONE (09:40)
[2022-08-25] MEDS ORDERED: MORPHINE 4 MG/ML SYR IV ONE (11:40)
[2022-08-25] MEDS: MORPHINE 4 MG/ML SYR IV PRN ×3 (13:37→20:57)
--- NOTE | 2022-08-25 13:57 | RAD REPORT ---
EXAM DESCRIPTION: CT - Abdomen Pelvis Wo Contrast - 08/25/2022 1:29 pm CLINICAL HISTORY: Abdominal pain. Pelvic pain COMPARISON: Chest Single View dated 08/23/2022 TECHNIQUE: CT imaging of the abdomen and pelvis was performed without contrast. Solid organ, bowel a nd vascular assessment is limited due to lack of IV and oral contrast. All CT scans are performed using dose optimization technique as appropriate and may include automated exposure control or mA/KV adjustment according to patient size. FINDINGS: Moderate bibasilar interstitial lung opacities are present, likely chronic. The liver, spleen, pancreas, adrenal glands and kidneys are within normal limits for a limited non-co ntrast examination. Moderate stool is present in the rectosigmoid colon. There is inflammatory changes surrounding the s igmoid colon in the pelvis. In addition there is severe fluid collections present in the pelvis which are difficult to distinguish from bowel loops given the lack of contrast, however abscesses are also possible. The largest collection in the right hemipelvis measures 7.3 x 1.7 cm. 5 cm collection is a lso present in the cul de sac region. No free air seen. No bowel obstruction. Normal appendix. The osseous structures are within normal limits. IMPRESSION: Moderate pericolonic inflammation is identified in the pelvis. There are air and fluid c ollections present which are difficult to distinguish from bowel loops but could potentially be pelvi c abscesses as detailed above. It is recommended the patient undergo CT abdomen and pelvis with oral and IV contrast material to help distinguish bowel loops in this region. Rectal contrast would also b e helpful if the patient can tolerate. A limited non-contrast examination was performed as detailed.
--- NOTE | 2022-08-25 14:55 | P.PN ---
Subjective Date of Service: 08/25/22 Chief Complaint: Abdominal pain Patient is complaining of intense lower abdominal discomfort CT scan of the abdomen is very abnormal have a pelvic abscess elevated white count respiratory status is improving Review of Systems Gastrointestinal: Nausea, Abdominal Pain Physical Examination - Vital Signs Temperature: 97.3 F Blood Pressure: 128/68 Pulse: 83 Respirations: 24 Pulse Ox (%): 95 - Physical Exam General: Alert, Severe distress Respiratory: Clear to auscultation bilaterally, Diminished Cardiovascular: No edema, Normal S1 S2 Gastrointestinal: Normal bowel sounds, Distended, Tenderness (She has suprapubic tenderness) Musculoskeletal: No clubbing, No swelling Assessment And Plan - Current Problems (Diagnosis) (1) Respiratory failure Current Visit: No Status: Acute Plan: Respiratory status is improving oxygen requirements have decreased has been weaned down successfully Qualifiers: Chronicity: acute on chronic (2) Pelvic abscess in female Current Visit: Yes Status: Acute Plan: May have a possible pelvic abscess has increasing abdominal pain elevated white count patient was started on meropenem will DC doxycycline add vancomycin cultures are so far negative consult general surgery discussed with Dr. Black
--- NOTE | 2022-08-25 15:11 | P.PN ---
Subjective Date of Service: 08/25/22 Chief Complaint: Abdominal pain Patient complaining of severe right-sided pelvic pain. She has been tolerating 9 L oxygen by nasal cannula. Physical Examination - Vital Signs Temperature: 97.3 F Blood Pressure: 128/68 Pulse: 83 Respirations: 24 Pulse Ox (%): 95 Assessment And Plan - Plan Physical exam GEN: Alert, oriented, distress due to pain CV: Regular rate and rhythm, no edema Pulm: Nonlabored breathing, bilateral coarse breath sounds. ABD: Soft, nondistended, tenderness in the suprapubic area, worse in the right inguinal area. Neuro: Normal speech, normal affect Problem List acute hypoxemic respiratiory failure Acute on chronic COPD with exacerbation interstitial lung disease, fibrosis h/o Afib LEOBARDO Epistaxis Hypertension Cardiomyopathy/CHF, diastolic Sepsis Pelvic abscess Plan: acute on chronic COPD exacerbation acute CHF exacerbation, diastolic continue home trelegy. pulm is following. Currently on oxygen by nasal cannula. Continue to wean oxygen as tolerated. Continue oral prednisone, ICS Currently on oral Lasix. Continue to wean oxygen repeat CT 08/21 - improved aeration, bilateral fibrosis. h/o afib, new diagnosis during last admission continue home meds Abdominal pain/pelvic abscess/sepsis KUB showed ileus. CT abdomen pelvis did not demonstrate possible pelvic abscess. CT abdomen and pelvis with IV contrast and oral contrast recommended but her renal function will preclude IV contrast use. Will attempt CT abdomen with oral contrast for now. Optimize potassium levels Stool softeners. Code: Larder Cook Spent Managing PTS Care (In Minutes): 38
[2022-08-25] MEDS: VANCOMYCIN 1.25 GM in NA CHLORIDE 0.9% 250 ML IVPB SCH (16:31)
[2022-08-26 04:20] LABS: Absolute Lymphocytes (CBC) 0.5 K/uL (0.7-4.9); Hematocrit 36.8 % (36.0-45.0); Lymphocytes % 1.4 % (15.3-44.8); MCV 90.5 fL (80-100); RBC Red Blood Cell Count 4.07 M/uL (3.86-4.86)
[2022-08-26 04:34] LABS: Albumin 1.6 g/dL (3.4-5.0); Bilirubin Total 0.6 mg/dL (0.2-1.0); Potassium 4.3 mmol/L (3.5-5.1); Protein, Total 6.2 g/dL (6.4-8.2)
[2022-08-26] MEDS: SIMETHICONE 80 MG TAB PO PRN (04:36)
[2022-08-26] MEDS: MORPHINE 4 MG/ML SYR IV PRN ×2 (04:37→12:43)
[2022-08-26] MEDS: PANTOPRAZOLE 40MG TABLET PO SCH (05:02)
[2022-08-26] MEDS: carvediloL 12.5 MG TAB PO SCH (08:00)
[2022-08-26] MEDS: ENOXAPARIN 40 MG/0.4 ML SQ SCH (09:00)
[2022-08-26] MEDS: ENSURE ENLIVE 237 ML CAN PO SCH ×2 (09:00→20:40)
[2022-08-26] MEDS: NYSTATIN 500,000 UNIT/5 ML UDC PO SCH ×3 (09:00→20:40)
[2022-08-26] MEDS: DOCUSATE NA 100 MG CAP PO SCH ×2 (09:00→20:40)
[2022-08-26] MEDS: HOME MED 1 EA UNK (Fluticasone/Umeclidin/Vilanter [Trelegy Ellipta 200-62.5-25] Blst.W.Dev IH SCH (09:00)
[2022-08-26] MEDS: SPIRONOLACTONE 25 MG TABLET PO SCH (09:00)
[2022-08-26] MEDS: FLUCONAZOLE 100 MG TAB PO SCH (09:00)
[2022-08-26] MEDS: FUROSEMIDE 20 MG TABLET PO SCH (09:00)
[2022-08-26] MEDS: Meropenem 1,000 MG in NA CHLORIDE 0.9% 100 ML IV SCH ×2 (09:00→20:56)
[2022-08-26] MEDS: predniSONE 10 MG TAB PO SCH (09:00)
--- NOTE | 2022-08-26 09:31 | RAD REPORT ---
EXAM DESCRIPTION: RAD - Abdomen 1 View (KUB) - 08/26/2022 8:51 am CLINICAL HISTORY: Device placement nasogastric tube placement FINDINGS: The tip of a nasogastric tube lies within the distal stomach.
[2022-08-26] MEDS ORDERED: NA CHLORIDE 0.9% 0 ML ONE (11:04)
[2022-08-26] MEDS ORDERED: NA CHLORIDE 0.9% 1,000 ML ONE (11:05)
[2022-08-26] MEDS ORDERED: NA CHLORIDE 0.9% 1,000 ML IV ONE ×2 (11:06→11:52)
--- NOTE | 2022-08-26 12:16 | P.PN ---
Subjective Date of Service: 08/26/22 Chief Complaint: Septic shock Patient's condition has deteriorated this morning she developed low blood pressure still complaining of abdominal pain possible pelvic sepsis patient does have an ileus transferred to the ICU Review of Systems General: Weakness Respiratory: Shortness of Breath Gastrointestinal: Abdominal Pain Physical Examination - Vital Signs Temperature: 96.9 F Blood Pressure: 86/66 Pulse: 87 Respirations: 20 Pulse Ox (%): 91 - Physical Exam General: Alert, Moderate distress Neck: Supple Respiratory: Clear to auscultation bilaterally, Diminished Cardiovascular: No edema, Regular rate/rhythm Gastrointestinal: Hypoactive, Tenderness (Lower abdominal tenderness), Rebound Assessment And Plan - Current Problems (Diagnosis) (1) Respiratory failure Current Visit: No Status: Acute Plan: Respiratory status is improving Qualifiers: Chronicity: acute on chronic (2) Pelvic abscess in female Current Visit: Yes Status: Acute Plan: Likely intra-abdominal sepsis White count is increased again patient is on vancomycin meropenem high risk for fungal infection we will start her on antifungal therapy (3) Septic shock Current Visit: Yes Status: Acute Plan: Patient is chronically been on steroids we will start her on some IV steroid IV fluid boluses vasopressors repeat blood and urine cultures ID and general surgery have been consulted patient's oxygenation has improved
[2022-08-26] MEDS ORDERED: ALBUMIN HUMAN 25% 200 ML IV ONE (12:52)
--- NOTE | 2022-08-26 13:04 | P.PN ---
Subjective Date of Service: 08/26/22 Chief Complaint: Septic shock Patient complaining of abdominal pain. No BM for 4 days. She stated IV morphine helps the pain. She has been tolerating 9 L oxygen by nasal cannula. Leukocytosis is worse today. Physical Examination - Vital Signs Temperature: 96.9 F Blood Pressure: 86/66 Pulse: 87 Respirations: 22 Pulse Ox (%): 91 Assessment And Plan - Plan Physical exam GEN: Alert, oriented, distress due to pain CV: Regular rate and rhythm, no edema Pulm: Nonlabored breathing, bilateral coarse breath sounds. ABD: Soft, nondistended, tenderness in the suprapubic area, worse in the right inguinal area. Neuro: Normal speech, normal affect Problem List acute hypoxemic respiratiory failure Acute on chronic COPD with exacerbation interstitial lung disease, fibrosis h/o Afib LEOBARDO Epistaxis Hypertension Cardiomyopathy/CHF, diastolic Sepsis/septic shock. Abdominal pain Plan: acute on chronic COPD exacerbation acute CHF exacerbation, diastolic continue home trelegy. pulm is following. Currently on oxygen by nasal cannula. Continue to wean oxygen as tolerated. Continue oral prednisone, ICS Currently on oral Lasix. Continue to wean oxygen repeat CT 08/21 - improved aeration, bilateral fibrosis. h/o afib, new diagnosis during last admission continue home meds Abdominal pain/pelvic abscess/sepsis KUB showed ileus. CT abdomen pelvis demonstrating possible pelvic abscess/versus small bowel intraluminal fluid collection. CT abdomen and pelvis with IV contrast and oral contrast recommended but her renal function will preclude IV contrast use. Case discussed with radiology-Dr. Ramirez and may be able to differentiate between abscess and intraluminal fluid collection with CT abdomen with oral contrast and rectal contrast. General surgery-Dr. Tavares consulted. Awaiting CT scan results. Patient now hypotensive and need to stabilize it before we can get a CT. She is transferred to the ICU. IV normal saline boluses as needed. Continue IV meropenem and vancomycin IV albumin infusion PRN. Will consider amiodarone if RVR does not respond to fluid resuscitation NGT to suction inserted-No significant output Monitor and optimize electrolytes. Keep n.p.o. Code: Full code.
[2022-08-26] MEDS: HYDROCORTISONE SUC 100 MG INJ IV SCH ×2 (13:20→20:41)
--- NOTE | 2022-08-26 16:35 | RAD REPORT ---
EXAM DESCRIPTION: CT - Abdomen Pelvis Wo Contrast - 08/26/2022 4:04 pm CLINICAL HISTORY: Abdominal pain COMPARISON: August 25, 2022 TECHNIQUE: Computed axial tomography of the abdomen and pelvis was obtained. IV was not requested. O ral and rectal contrast was given. Coronal reconstructions performed. All CT scans are performed using dose optimization technique as appropriate and may include automated exposure control or mA/KV adjustment according to patient size. FINDINGS: The evaluation of solid organs and vessels is limited secondary to the lack of contrast a dministration. The liver, spleen, pancreas, adrenals and left kidney appear grossly normal. Small left renal cyst. A small amount of pneumoperitoneum is present within the abdomen and pelvis. Diverticula stem from the colon. Mild stranding within the adjacent fat. The suspected abscess within the pelvis has diminished in size measuring approximately 3 centimeters. Additional 3 centimeter fluid collection within the right pelvis NG tube has its tip abutting the anterior wall of the gastric body. IMPRESSION: Development of pneumoperitoneum. This may be secondary to a perforated sigmoid diverticu lum Dr Valdes notified
--- NOTE | 2022-08-26 18:38 | P.PN ---
Date of Service: 08/26/22 Patient transferred to the ICU due to hypotension. CT abdomen with oral and rectal contrast results reviewed and reported perforated sigmoid diverticulum, diminished size of initial noted pelvic abscess. Case discussed with Dr. Tavares who is recommending colectomy. Continue IV meropenem and vancomycin. Follow blood cultures. Follow lactate. Cardiology consult for A. fib and preop evaluation. Monitor closely in the ICU. No anticoagulation pending surgery. Patient informed of the bowel perforation. Dr. Tavares will follow.
[2022-08-26] MEDS ORDERED: Meropenem 1000 MG/VIAL IV ONE (20:36)
[2022-08-26] MEDS ORDERED: NA CHLORIDE 0.9% 100 ML ONE (20:51)
--- NOTE | 2022-08-26 22:54 | CON ---
Date of Consultation: 08/26/2022 Diagnoses: A pelvic abscess, possible diverticulitis, and possible perforation. History Of Present Illness: This is the case of a 66-year-old patient admitted to the hospital on of last month, several weeks ago. The reason for that is respiratory problems. For the last 5 days, she has been having low appetite and some pelvic pain, but not major. Yesterday pelvic pain got a little bit worse and then the Medical Service decided to do a CT scan. Initially, the CAT scan was done without any contrast and so the radiologist could not determine if some inflammation down i n the pelvis is an abscess or just colitis or just intestines there. So, they decided to do the CAT scan. They did a CAT scan this afternoon and when the CAT scan comes back, it shows colitis with the abscess. They say it is better than the one they saw before although there is some air around the a regina. She right now feels better than yesterday. I noted that since of last month, her WBC coun t has been coming up from 12 to 14 to 23 to 26 to 31 to 35 today. That correlates with what she is s aying that she is not feeling great down in the pelvis. Right now, she has no nausea. She has some abdominal pain, but it is mainly down in the pelvis. There is no guarding or rebound at this moment. She states she never had a colonoscopy in her life and she mentions her son has history of divertic ulum. Most information is obtained from the patient since at this moment we trying to get the son to get more information, but the answering machine keeps coming up and she keeps trying. Review of sys tems mainly for anorexia and malaise for the last 4 or 5 days. She has also shortness of breath. Sh rory has history of atrial fibrillation. Past Medical History: Include COPD, cardiomyopathy, the nursing staff mention atrial fibrillation, p atient mentions something about AFib too. She has also hypertension. Past Surgical History: Surgeries including C-sections and wrist surgery. No previous colonoscopy, a lthough the patient was advised. Social History: None. She does not drink alcohol. She lives at home with daughter. No fever. No dysuria, hematuria, hematochezia, or melena. Allergies: CODEINE. Medications: Reviewed including steroids, vanco, and meropenem. Review of Systems: As mentioned above. See history of present illness. Physical Examination: General: The patient is awake and alert. Eyes: Pupils are equal and reactive. Anicteric. Neck: Supple. Chest: Clear. Abdomen: Tenderness in the pelvis area. Upper abdomen seems to not have tenderness, although once a gain, she has been in the hospital so many days and she has so many medications that it is hard to ge t a clinical on her. Pelvic: Deferred. Rectal: Deferred. Breast: Deferred. Extremities: Good capillary refill. Laboratory Data: WBC count in the last 6 days has been on the high to the point that it comes to 23, 26, 31, and 35 for at least the last week. Hemoglobin is 12, platelets of 331. INR is 1.5. Sodium is 128, potassium 4.3, chloride is 91, bicarb is 28, BUN is 51, creatinine is 1.5. CAT scan of the abdomen and pelvis, we have the results from yesterday. CAT scan read by Dr. Whalen as pericolonic inf lammation identified in the pelvis, potentially pelvic abscess. Recommended the patient to have a CA T scan with oral, IV, and rectal contrast. The CAT scan was done not too long ago, today early this afternoon and at this moment there is a small amount of pneumoperitoneum, diverticula in the colon, m ild stranding of fat. The suspected abscess within the pelvis has diminished in size which is hard t o believe knowing then it was just yesterday they found the abscess so may be they just saw some ksenia l loops and there is another 3 cm collection within the pelvis. Small left renal cyst. Assessment: This is a 66-year-old patient with colitis and high WBC count for the last week and she has been having low appetite for the last week and lower abdominal pain, but she is so concentrated o n the respiratory issues that now is when she mentioned it and the primary doctor called me to evalua te this patient. I came to the ICU and talked to her about the options. I trying to contact the son that she wanted me to talk to through her cellphone, but the answering machine keep coming up. So I explained to her what we have so far. Even though she feels better, I still believe that laparotomy with possible bowel resection and ostomy might have to be done. She is immunocompromised with stero ids and she has been on antibiotics for few days already. It may be that she had this few days ago a nd once we have the white count coming in the 20s may be that the abscess somehow, which is getting b ramona and she feels better, but from the surgical standpoint, I cannot guarantee that she is going to be okay without the laparotomy and bowel resection. Obviously, she understands she most likely is g oing to have a colostomy and we cannot guarantee this is just related to diverticula since neoplasia can also perforate and also cause disease specially when she never had a colonoscopy done before. Edith valadez has history of cardiac disease. Apparently, the cardiac evaluation has been called. They are work ing on fluid resuscitation and antibiotics. Hopefully in the next few hours, we can take her to surg ricardo if she agree and the son agrees. We will keep trying and keep getting her ready for surgery. Edith valadez also understands as explained to her that unfortunately she might not be off the ventilator judging by how she has been in the last few weeks with respiratory difficulty. Surgery may be done when she becomes at least temporary ventilatory dependent. She is not ready to make the decision right now. She wants to talk to her son first and we otherwise believe it is fair enough. I believe the eliza kelly is in a safe place here in the ICU. CHETNA/FAZAL Voice ID: [id number] Report ID: [id number]
[2022-08-27 03:30] LABS: Absolute Lymphocytes (CBC) 0.5 K/uL (0.7-4.9); Lymphocytes % 2.8 % (15.3-44.8); MCV 90.5 fL (80-100); MPV 7.9 fL (7.6-11.3)
[2022-08-27 03:45] LABS: Albumin 2.2 g/dL (3.4-5.0); Bilirubin Total 1.3 mg/dL (0.2-1.0); Potassium 3.6 mmol/L (3.5-5.1); Protein, Total 5.7 g/dL (6.4-8.2)
[2022-08-27] MEDS: VANCOMYCIN 1.25 GM in NA CHLORIDE 0.9% 250 ML IVPB SCH (04:33)
[2022-08-27] MEDS: PANTOPRAZOLE 40MG TABLET PO SCH (05:49)
[2022-08-27] MEDS: DOCUSATE NA 100 MG CAP PO SCH (07:57)
[2022-08-27] MEDS: ENSURE ENLIVE 237 ML CAN PO SCH (07:57)
[2022-08-27] MEDS: NYSTATIN 500,000 UNIT/5 ML UDC PO SCH ×2 (07:57→13:12)
[2022-08-27] MEDS: Meropenem 1,000 MG in NA CHLORIDE 0.9% 100 ML IV SCH ×2 (07:57→20:20)
[2022-08-27] MEDS: HYDROCORTISONE SUC 100 MG INJ IV SCH (07:58)
[2022-08-27] MEDS ORDERED: ROCURONIUM 50 MG/5 ML VIAL IV ONE ×2 (09:41→11:59)
[2022-08-27] MEDS ORDERED: LIDOCAINE 2% MPF 5 ML VIAL ONE (09:41)
[2022-08-27] MEDS ORDERED: propofoL 200 MG/20 ML VIAL IV ONE (09:41)
[2022-08-27] MEDS ORDERED: Phenylephrine HCl 10 MG/ML 1 ML VIAL ONE (09:42)
[2022-08-27] MEDS ORDERED: FENTANYL CITR 100 MCG/2 ML ONE ×2 (09:42→12:10)
[2022-08-27] MEDS ORDERED: Ringers Lactate 1,000 ML IV ONE ×2 (10:07→13:19)
[2022-08-27] MEDS ORDERED: ONDANSETRON 4 MG/2 ML VIAL ONE (10:59)
--- NOTE | 2022-08-27 11:09 | PN ---
Diagnoses: Diverticulitis with perforation, free air in the abdomen, pelvic abscess, leukocytosis, r espiratory failure. I discussed with him overnight. Discussed this case with the patient. The patient wanted to wait un til she talked to her son, which is I believe is a valid point as long as she allows to continue the medical treatment as intensive as they are right now to diminish the chance of any more complications . This morning, the son came, also another family member, I believe, her son's and we had a con versation once again trying to clarify this. We clarified to her in Burkinan, Macedonian to clarify the son and the other family member in Burkinan and basically they had some knowledge of the disease and w e explained to them the urgency of the situation. Now, the patient feels better, had signed the cons ent. As soon as she signed, the OR team is ready to go and proceed with the surgery. I am glad to m brenda that decision since we are afraid she may go in septic shock, if we do not do something about it. CHETNA/FAZAL Voice ID: [id number] Report ID: [id number]
[2022-08-27] MEDS ORDERED: Mastisol Adhesive Liq ONE (12:35)
--- NOTE | 2022-08-27 12:42 | P.PN ---
Subjective Date of Service: 08/27/22 Chief Complaint: Septic shock Leukocytosis trended down from yesterday. Patient is maintained on 10 L oxygen by nasal cannula No recorded fever. Physical Examination - Vital Signs Temperature: 97.1 F Blood Pressure: 125/63 Pulse: 84 Respirations: 19 Pulse Ox (%): 92 Assessment And Plan - Plan Physical exam GEN: Alert, oriented, distress due to pain CV: Regular rate and rhythm, no edema Pulm: Nonlabored breathing, bilateral coarse breath sounds. ABD: Soft, nondistended, tenderness in the suprapubic area, worse in the right inguinal area. Neuro: Normal speech, normal affect Problem List acute hypoxemic respiratiory failure Acute on chronic COPD with exacerbation interstitial lung disease, fibrosis h/o Afib LEOBARDO Epistaxis Hypertension Cardiomyopathy/CHF, diastolic Sepsis/septic shock. Abdominal pain Plan: acute on chronic COPD exacerbation acute CHF exacerbation, diastolic continue trelegy. pulm is following. Currently on oxygen by nasal cannula. Steroid on hold due to bowel perforation needing surgery. Lasix also on hold. Patient resuscitated with IV fluid for hypotension yesterday. repeat CT 08/21 - bilateral fibrosis. h/o afib, new diagnosis during last admission Coreg is on hold due to prior hypotension. Abdominal pain/pelvic abscess/sepsis KUB showed ileus. CT abdomen pelvis demonstrated possible pelvic abscess/versus small bowel intraluminal fluid collection. CT abdomen and pelvis with IV contrast and oral contrast recommended but her renal function precluded IV contrast use. CT abdomen with oral contrast and rectal contrast reported perforated sigmoid diverticulum, air under the diaphragm Patient seen by General surgery-Dr. Tavares will recommend bowel resection. Blood pressure has improved, heart rate is better. Patient seen by cardiology. Okay to proceed with surgery per Dr. Owusu. Continue IV meropenem and vancomycin Anticipate postop management in the ICU. High risk of ending on mechanical ventilation postop. D5 normal saline. Patient may need TPN along the line. PICC line placed. Blood cultures pending. NGT to suction inserted-No significant output Monitor and optimize electrolytes. Code: Full code. Plan of care discussed with patient and family (son) and significant other. All questions answered. They were also referred to Dr. Tavares regarding any questions relating to the surgery.
--- NOTE | 2022-08-27 12:53 | P.BOP ---
Preoperative diagnosis: perforated diverticulitis with pelvic abscess, pneumoperitoneoum, leukocyto Postoperative diagnosis: respiratory failure Primary procedure: Exploratory laparotomy, sigmoid bowel resection, end colostomy Secondary procedure: Lysis of adhesions Estimated blood loss: <100cc Specimen: bowel , intraperitonea; abscess culture Findings: abscess, fecal matter, bowel perforation Anesthesia: General Complications: None Drain(s): SALVADOR drain Transferred to: Recovery Room Condition: Good
[2022-08-27] MEDS ORDERED: MORPHINE 4 MG/ML SYR IV PRN (13:03)
[2022-08-27] MEDS ORDERED: HALOPERIDOL LACT 5 MG/ML INJ IV PRN (13:19)
[2022-08-27] MEDS ORDERED: propofoL 1,000 MG/100 ML VIAL IV SCH (14:00)
[2022-08-27] MEDS: D5NS KCL 20MEQ 20 MEQ/1,000 ML BAG IV SCH (14:44)
[2022-08-27 18:32] LABS: Magnesium 2.2 mg/dL (1.8-2.4); Phosphorus 5.5 mg/dL (2.5-4.9)
[2022-08-27] MEDS: MORPHINE 4 MG/ML SYR IV PRN (19:10)
[2022-08-27] MEDS: FAMOTIDINE 20 MG/2 ML VIAL IV SCH (20:23)
[2022-08-27] MEDS: LORazepam 2 MG/ML VIAL IV PRN (20:29)
--- NOTE | 2022-08-27 22:59 | OP ---
Date of Procedure: 08/27/2022 Surgeon: Yeison Tavares MD Preoperative Diagnoses: Perforated diverticulitis with pelvic abscess, pneumoperitoneum, leukocytosi s, respiratory failure, intraabdominal abscess. Postoperative Diagnoses: Perforated diverticulitis with pelvic abscess, pneumoperitoneum, leukocytos is, respiratory failure, intraabdominal abscess. Procedures: Exploratory laparotomy, sigmoid bowel resection and colostomy, lysis of adhesions. Estimated Blood Loss: Less than 100 cc. Specimen: Sigmoid bowel and intraperitoneal abscess culture. Findings: Abscess with fecal matter in the area of the pelvis, bowel perforation. Anesthesia: General plus local. Drains: SALVADOR #10 x2. Indications: This is a case of a 66-year-old patient who has been in the hospital for several weeks for some other medical issues, found to have a perforated diverticulitis with intraabdominal abscess. Patient is immunocompromised with steroids and being treated for respiratory failure, so I explaine d to the patient and the family the need for laparotomy, possible bowel resection, and possible ostom y, which include, but not limited to infection, bleeding, damage to adjacent structures, anesthesia c omplication, nonhealing wound, AL, and even . They also understand the chance of an intraabdomi nal abscess and chance for any other surgical intervention they understood. This morning, they made a final decision and they signed a consent, so we immediately called the OR team. Patient never had a colonoscopy done before. She was advised the importance not just for her, the rest of the family t o have colonoscopy because perforations could also be caused by neoplasm. She understands, the famil y understands. She is very compromised for her lungs, so she may need a mechanical ventilation and t he medical doctors will then be trying to work and if possible to remove or not. She also understand s that the colostomy may or may not be reversible. Description Of Procedure: Patient was brought to the operating room, placed in supine position. Ane sthesia was done without complication. Abdominal area was prepped and draped in sterile fashion. A time-out was called. A midline incision was done all the way down to fascia under direct visualizati on. Immediately, we had a purulent discharge from the pelvis with fecal content in the abdomen that was irrigated with several liters of fluid until clean. We noticed the area of perforation in the ar ea of the sigmoid colon. We obtained distal control by putting my finger around the bowel and protec ting the iliac vessels and the ureters. I proceeded to just put a TA around the bowel itself and tra nsect. Using the ligature, we proceeded to mobilize and ligate the mesentery making sure we protect the ureters at all time until we passed the area of perforation when transected the bowel once again at least controlling the perforation. Specimen was sent to the pathologist after been marked. The d istal stump was also marked with Prolene. Area was irrigated. We then continued the irrigation of t he abdomen until completely clean. We explored the abdomen, liver. No mass palpated. Stomach was s oft and compressible. Multiple loops together with a lot of fibrin present. There are also adhesion s of omentum and bowel down to the pelvis for which patient had previous C-sections. There were ilan jossue with the help of LigaSure. This allowed me to continue doing the exploration of the abdomen and irrigation of those areas 4 quadrants were done. At that moment, we directed our attention once agai n to the distal end of the bowel. We proceeded to mani an area on the left lower quadrant where we a re going to proceed with the colostomy. There was too much inflammation and contamination to do any anastomosis at this moment. So, we proceeded to mobilize the bowel, making sure they have good blood supply and once again protecting the ureters and put that through the ostomy site. Secured that in place. Once again checked for color and looks intact. At that moment, I irrigated the abdomen once again, suctioned, checked for hemostasis. No bleeding. Left 2 SALVADOR drains in the area of the pelvis c oming through another site. Then, after that put the omentum over the area and closed the fascia wit h #2 nylon in a running fashion from above and from below. The area was irrigated. The intention is to leave the wound to close by secondary intention with wet-to-dry dressing and that is what we did. Once we covered the midline wound, we obtained a sponge count and instrument count was correct. I proceeded then to mature the ostomy. The ostomy was opened and digitalized. We the anast omosis with the help of 0 chromic full-thickness serosa and then subcutaneous tissue in 4 quadrants a nd then two 3-0 in between all the 4 quadrants. Patient tolerated the procedure well. The ostomy wa s digitalized, looks with good blood supply. At that moment, I proceeded to put a colostomy back on top. Patient tolerated the procedure well. The patient will be sent to the ICU in stable condition. She will remain on the ventilator under the care of the medical service. The family was fully expl ained. CHETNA/FAZAL Voice ID: [id number] Report ID: [id number]
[2022-08-28] MEDS: MORPHINE 4 MG/ML SYR IV PRN (03:40)
[2022-08-28] MEDS: D5NS KCL 20MEQ 20 MEQ/1,000 ML BAG IV SCH ×2 (04:18→16:10)
[2022-08-28 06:42] LABS: Absolute Lymphocytes (CBC) 0.6 K/uL (0.7-4.9); Hematocrit 30.6 % (36.0-45.0); Lymphocytes % 3.4 % (15.3-44.8); MCV 91.7 fL (80-100); MPV 8.1 fL (7.6-11.3); RBC Red Blood Cell Count 3.33 M/uL (3.86-4.86)
[2022-08-28 07:07] LABS: Albumin 1.6 g/dL (3.4-5.0); Bilirubin Total 1.4 mg/dL (0.2-1.0); Magnesium 2.2 mg/dL (1.8-2.4); Potassium 3.8 mmol/L (3.5-5.1); Protein, Total 5.2 g/dL (6.4-8.2)
[2022-08-28] MEDS: Meropenem 1,000 MG in NA CHLORIDE 0.9% 100 ML IV SCH ×2 (07:28→20:54)
[2022-08-28] MEDS: LORazepam 2 MG/ML VIAL IV PRN ×2 (07:28→18:04)
[2022-08-28] MEDS: FAMOTIDINE 20 MG/2 ML VIAL IV SCH ×2 (07:29→20:54)
[2022-08-28 10:32] LABS: Blood Morphology Comment NOT SEEN (NOT SEEN); Platelet Estimate ADEQ; White Blood Cell Scan OK (OK)
[2022-08-28] MEDS ORDERED: propofoL 500 MG/50 ML ML IV SCH (11:00)
--- NOTE | 2022-08-28 11:50 | P.PN ---
Subjective Date of Service: 08/28/22 Chief Complaint: Respiratory failure it is post bowel resection Patient is a stable on a ventilator and had a bowel resection with a colostomy Review of Systems is unable to be obtained Physical Examination - Vital Signs Temperature: 97.4 F Blood Pressure: 110/64 Pulse: 97 Respirations: 18 Pulse Ox (%): 97 - Physical Exam General: Unresponsive Respiratory: Clear to auscultation bilaterally, Diminished Cardiovascular: No edema, Normal pulses Assessment And Plan - Current Problems (Diagnosis) (1) Respiratory failure Current Visit: No Status: Acute Plan: Respiratory failure patient on a ventilator after surgery currently stable hemodynamically stable oxygenation satisfactory plan to wean off and extubate Qualifiers: Chronicity: acute on chronic (2) Pelvic abscess in female Current Visit: Yes Status: Acute Plan: S/p bowel resection with a colostomy White count has declined significantly continue with meropenem and vancomycin agree with TPN
--- NOTE | 2022-08-28 13:20 | P.PN ---
Subjective Date of Service: 08/28/22 Chief Complaint: Respiratory failure it is post bowel resection Status post colon resection. Currently on the vent. Blood pressure has been stable. Leukocytosis has decreased significantly. No recorded fever. Physical Examination - Vital Signs Temperature: 97.8 F Blood Pressure: 115/68 Pulse: 103 Respirations: 15 Pulse Ox (%): 97 Assessment And Plan - Plan Physical exam GEN: Alert, oriented, distress due to pain CV: Regular rate and rhythm, no edema Pulm: Nonlabored breathing, bilateral coarse breath sounds. ABD: Soft, nondistended, tenderness in the suprapubic area, worse in the right inguinal area. Neuro: Normal speech, normal affect Problem List acute hypoxemic respiratiory failure Acute on chronic COPD with exacerbation interstitial lung disease, fibrosis h/o Afib LEOBARDO Epistaxis Hypertension Cardiomyopathy/CHF, diastolic Sepsis/septic shock. Abdominal pain. Sigmoid colon perforation S/P colostomy Plan: acute on chronic COPD exacerbation acute CHF exacerbation, diastolic pulm is following. Currently intubated and on mechanical ventilation. Steroid on hold due to bowel perforation. Lasix also on hold. Patient resuscitated with IV fluid for hypotension on . CT 08/21 - bilateral fibrosis. Patient with baseline respiratory failure. She may be difficult to extubate. Pulmonary is following. May need sepsis resolved and return of bowel function before attempt to extubate. h/o afib, new diagnosis during last admission Coreg is on hold due to prior hypotension. Heart rate in the low 100s. Monitor. Cardiology is following. Abdominal pain/pelvic abscess/sepsis KUB showed ileus. CT abdomen pelvis demonstrated possible pelvic abscess/versus small bowel intraluminal fluid collection. CT abdomen and pelvis with IV contrast and oral contrast recommended but her renal function precluded IV contrast use. CT abdomen with oral contrast and rectal contrast reported perforated sigmoid diverticulum, air under the diaphragm Patient seen by General surgery-Dr. Tavares performed laparotomy with bowel resection and colostomy. SALVADOR drains in place. Dr. Tavares is following. Blood pressure has improved. Continue IV meropenem and vancomycin Continue TPN PICC line in place. Repeat blood cultures 08/26: No growth to date. NGT in place. Monitor and optimize electrolytes. Code: Full code. Disposition: May end up going to LTAC.
--- NOTE | 2022-08-28 13:45 | RAD REPORT ---
EXAM DESCRIPTION: RAD - Chest Single View - 08/27/2022 12:58 am CLINICAL HISTORY: The patient is 66 years old and is Female; S/P PICC insertion TECHNIQUE: Frontal view of the chest. COMPARISON: No relevant prior studies available. FINDINGS: Lungs: Prominent interstitial markings suggestive of interstitial edema. Pleural space: Blunting of the costophrenic angles suggestive of bilateral pleural effusions. Left hemidiaphragm is obscured which can be seen with left pleural effusion, as well as left lower lobe consolidation or atelectasis. No pneumothorax. Heart: Unremarkable. Mediastinum: Unremarkable. Bones/joints: Unremarkable. Tubes, lines and devices: Left PICC with tip in the SVC. Nasogastric tube coursing below the diaphragm and overlying the upper abdomen. IMPRESSION: 1. Prominent interstitial markings suggestive of interstitial edema. 2. Blunting of the costophrenic angles suggestive of bilateral pleural effusions. 3. Left hemidiaphragm is obscured which can be seen with left pleural effusion, as well as left low er lobe consolidation or atelectasis. 4. Left PICC with tip in the SVC. 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 The interpreting radiologist is fully responsible for the content of the report.
[2022-08-28] MEDS: METRONIDAZOLE 500mg IVPB 500 MG/100 ML BAG IV SCH ×2 (14:33→21:35)
--- NOTE | 2022-08-28 16:30 | PN ---
Date of Progress Note: 08/28/2022 Subjective: Ms. Richard came into the ICU with atrial fibrillation, hypotension, had been admitted wi th respiratory failure, colitis, and pelvic abscess. She had an elevated white count that is improvi ng, mildly elevated renal insufficiency. Her blood pressure now is normal. White count is improved. Sodium is normalizing. Last is sodium is 133. Echocardiogram showed an ejection fraction of 60%. She continues to be on antibiotics, Lovenox and Lasix. Aldactone and Coreg continued to be held and they should be held. Her ejection fraction is normal. She does not really need either one of those medicines for now. She remains in sinus rhythm. No need for anticoagulation. I would consider dig oxin and/or amiodarone if her atrial fibrillation comes back. I think her atrial fibrillation was pa roxysmal secondary to hypoxia and hypotension and hopefully this will not be a chronic issue. If it comes back, we will see her again. Otherwise, I will sign off her case for now. LIGIA/FAZAL Voice ID: [id number] Report ID: [id number]
[2022-08-28] MEDS: VANCOMYCIN 1.5 GM in NA CHLORIDE 0.9% 500 ML IVPB SCH (16:51)
--- NOTE | 2022-08-28 17:15 | CON ---
History Of Present Illness: This is a 66-year-old female consulted to help with the management of co litis, leukocytosis of 35,000, and pelvic abscess. The patient is currently being treated with TPN, meropenem, and vancomycin on ventilator in ICU. Unable to give any history. Most of the history was obtained through medical record and staff. The patient initially came to the hospital on July 25 when she was admitted for hypoxemia and shortness of breath. The patient shows worsening of COPD with fever and chills. The patient has been operated by Surgical Team and a colostomy has been plac ed. The plan is to extubate the patient today if possible with significant past medical history of C OPD exacerbation, interstitial lung disease, history of atrial fibrillation, acute kidney injury, epi staxis, hypertension, cardiomyopathy, congestive heart failure, septic shock, and abdominal abscess s econdary to perforated diverticulum, status post surgical intervention. Past Medical History: As per HPI. Social History: Nonsmoker. Nondrinker. Family History: Noncontributory. Medications: Merrem, vancomycin, TPN. See MAR for other medications. Allergies: CODEINE. Review of Systems: Unable to obtain. Physical Examination: General: This is a 66-year-old female, lying in bed on ventilator, not in any acute cardiopulmonary distress. Vital Signs: Temperature 97, pulse 97, respirations 18, blood pressure 110/64, FiO2 of 40%. HEENT: Unremarkable. ET tube in place. Neck: Supple. Lungs: Basal crackles. Heart: S1, S2. Regular. Abdomen: Soft. Bowel sounds absent. Surgical dressing noted. Extremities: No edema. Laboratory Data: WBC 16.8, down from 35,000; hemoglobin 10; platelets are 221. Chemistry shows sodi um 138, potassium 3.8, chloride 105, bicarb 26, BUN 60, creatinine 1.2. Albumin level is 1.6. Microbiology Data: Wound cultures are pending. Blood cultures are negative for 24 hour. Assessment And Plan: A 66-year-old female with multiple medical problems, chronic obstructive pulmon paul disease exacerbation and respiratory failure, now with perforated diverticulum, status post surgi bel intervention to remove pelvic abscess and colostomy. The patient remained on ventilator, possibl e extubation. Continue meropenem, vancomycin, pending culture results and TPN. Severe protein-calor ie malnourishment, leukocytosis, anemia of chronic disease. We will follow the patient closely. Thank you Dr. Rodriguez for consult. Consider long-term acute care for this patient if okay with surgic al team. NF/MODL Voice ID: [id number] Report ID: [id number]
[2022-08-28] MEDS: AA 5%/D20W/ELECTROLYTES-TPN 2,000 ML, Lipids 20% 250 ML with MULTIVITAMINS INJ 10 ML IV SCH ×3 (17:48)
--- NOTE | 2022-08-28 19:00 | PN ---
Date of Progress Note: 08/28/2022 Diagnoses: Perforated sigmoid diverticulitis, status post laparotomy, sigmoid resection, and colosto my and drainage of intraabdominal abscess. The patient has a mechanical ventilation. Review of Systems: Unable to be obtained. Physical Examination: Chest: Clear. Abdomen: Intact surgical site. Extremities: Good capillary refill. Laboratory Data: Blood work reviewed including WBC count down to 16. Plan: Continue medical management. Continue n.p.o. Physical Therapy for ambulation whenever we see that she has off the vent. Infectious Disease for antibiotics management. Wet-to-dry dressing in t he midline incision. SALVADOR drain to bulb suction. CHETNA/FAZAL Voice ID: [id number] Report ID: [id number]
--- NOTE | 2022-08-28 19:16 | P.PN ---
Date of Service: 08/29/22 Subjective: afib rvr overnight, s/p lopressor IV x3, and digoxin x1 still in afib, HR: 110-120s patient appears uncomfortable/restless ROS: A complete review of systems was unable to be performed due to light sedation / mech ventilation Physical Exam: Gen: NAD, on mech vent HEENT: normal conjunctiva, sclera anicteric CV: irregularly irregular rhythm, o edema Pulm: on mech ventilation Abd: ostomy with dark red output - minimal Neuro: restless, moves extremitie vitals reviewed Problem List acute hypoxemic respiratiory failure Acute on chronic COPD with exacerbation interstitial lung disease, fibrosis h/o Afib, paroxysmal LEOBARDO Epistaxis Hypertension Cardiomyopathy/CHF, diastolic Sepsis/septic shock secondary to sigmoid colon perforation, now s/p colostomy severe protein calorie malnutrition acute on chronic COPD exacerbation acute CHF exacerbation, diastolic pulm is following, CT 08/21 - bilateral fibrosis. Currently intubated and on mechanical ventilation. Steroid on hold due to bowel perforation. Lasix also on hold. Patient resuscitated with IV fluid for hypotension on 08/26. Patient with baseline respiratory failure. She may be difficult to extubate. Pulm is following will need to have better control of HR/afib h/o afib, new diagnosis during last admission; paroxysmal Coreg was held due to prior hypotension, eventually dc'd afib with rvr overnight 08/28-08/29, s/p lopressor x3, digoxin Cardiology following continued in afib with HR: 110s--120s start amio drip 08/29 Abdominal pain/pelvic abscess/sepsis KUB showed ileus. CT abd/pelvis: possible pelvic abscess vs small bowel int raluminal fluid collection CT abd/pelvis w/ oral/rectal contrast: perforated diverticulum, air under diaphragm Dr. Tavares performed laparotomy with bowel resection and colostomy. SALVADOR drains in place Continue IV meropenem and vancomycin, flagyl continue TPN PICC in place Blood pressure has improved. Repeat blood cultures 08/26: No growth to date. NGT in place. Monitor and optimize electrolytes. Code: Full Dispo: May end up going to LTAC. has home O2 Time Spent Managing Pts Care (In Minutes): 25
[2022-08-28] MEDS: FENTANYL CITR 100 MCG/2 ML IV PRN (19:50)
[2022-08-28] MEDS ORDERED: METOPROLOL TARTRATE 5 MG/5 ML INJ IV STA (23:22)
[2022-08-29] MEDS ORDERED: METOPROLOL TARTRATE 5 MG/5 ML INJ IV STA ×4 (03:36→07:50)
[2022-08-29] MEDS ORDERED: DIGOXIN 0.25 MG/ML AMP IV ONE (05:17)
[2022-08-29] MEDS: METRONIDAZOLE 500mg IVPB 500 MG/100 ML BAG IV SCH ×3 (05:31→22:50)
[2022-08-29 05:40] LABS: Absolute Lymphocytes (CBC) 0.7 K/uL (0.7-4.9); Hematocrit 27.6 % (36.0-45.0); Lymphocytes % 4.4 % (15.3-44.8); MCV 91.2 fL (80-100); MPV 7.9 fL (7.6-11.3); RBC Red Blood Cell Count 3.02 M/uL (3.86-4.86)
[2022-08-29 05:52] LABS: Albumin 1.4 g/dL (3.4-5.0); Bilirubin Total 2.1 mg/dL (0.2-1.0); Magnesium 2.1 mg/dL (1.8-2.4); Phosphorus 1.7 mg/dL (2.5-4.9)
[2022-08-29] MEDS: FAMOTIDINE 20 MG/2 ML VIAL IV SCH ×2 (08:01→21:49)
[2022-08-29] MEDS: Meropenem 1,000 MG in NA CHLORIDE 0.9% 100 ML IV SCH ×2 (08:01→21:49)
[2022-08-29] MEDS: LORazepam 2 MG/ML VIAL IV PRN ×4 (08:01→22:08)
[2022-08-29] MEDS: FENTANYL CITR 100 MCG/2 ML IV PRN ×3 (10:41→22:50)
--- NOTE | 2022-08-29 10:53 | RAD REPORT ---
EXAM DESCRIPTION: RAD - Chest Single View - 08/29/2022 10:26 am CLINICAL HISTORY: intubated, tachycardic, eval pna/pulm edema Chest pain. COMPARISON: Chest Single View dated 08/27/2022; Abdomen 1 View (KUB) dated 08/26/2022; Chest Single Vi ew dated 08/23/2022; Abdomen 1 View (KUB) dated 08/23/2022 FINDINGS: Portable technique limits examination quality. Mild asymmetric bilateral pulmonary opacities are seen, likely representing pulmonary edema or pneumo amador and appearing essentially stable since prior study. Tip of the endotracheal tube is above the car albina at the level of the superior aortic arch. Left-sided PICC line has tip in the SVC.The heart is mi ldly enlarged in size.
--- NOTE | 2022-08-29 11:58 | CON ---
Date of Consultation: 08/27/2022 Reason For Consultation: Hypotension, atrial fibrillation in the setting of pelvic abscess, colitis, and respiratory failure. History Of Present Illness: Ms. Massey is 66. Has a history of COPD and hypertension. Comes in with hypotension, respiratory failure, colitis, pelvic abscess. On 08/27/2022, she had an episode of atri al fibrillation and hypotension. I was consulted. She recently had an echocardiogram on August 22 which was normal. Her white count was 35,000 and is now 16. Her creatinine is 1.51. Her sodium wa s 128, it is now 133. By the time I saw her, she was normotensive after receiving antibiotics and fl uid. Her Aldactone, Coreg, and Lasix have been held. She is on Lovenox, vancomycin, and Merrem. Sh e is back in sinus rhythm. No cardiac symptoms reported. Past Medical History: As stated above. Allergies: INCLUDE CODEINE. Review of Systems: Negative. Social History: Negative. Family History: Negative. Medications: Presently include Merrem, vancomycin, Lovenox, and Lasix. Physical Examination: Vital Signs: Sinus rhythm now. Blood pressure is 132/71. HEENT: Negative. Neck: Supple with no bruit. Chest: Clear. Cardiac: Revealed a regular rhythm and rate. No murmurs, gallops, or rubs. Abdomen: Benign. Extremities: Revealed no clubbing, cyanosis, or edema. Diagnostic Data: As stated earlier. Impression And Plan: Paroxysmal atrial fibrillation. She is back in sinus rhythm after hydration. Her blood pressure is 132/71 right now. Has a normal echo in August 22, renal insufficiency, hypon atremia, elevated white count that is improving. I will continue antibiotics, Lovenox. Give Lasix a s needed. Hold Aldactone and Coreg. She really does not need it considering her ejection fraction b eing normal. If she goes back into atrial fibrillation, we will consider digoxin and/or amiodarone. LIGIA/FAZAL Voice ID: [id number] Report ID: [id number]
--- NOTE | 2022-08-29 12:54 | P.PN ---
Subjective Date of Service: 08/29/22 Chief Complaint: Respiratory failure it is post bowel resection Ms. Nandini martinez seems to be a bigger problem she is becoming very tachycardic trying to control the rate with beta-blockers probably not successful we will have to try her on amiodarone otherwise patient is stable is responsive with some slight bleeding from the colostomy site oxygenation satisfactory Review of Systems is unable to be obtained Physical Examination - Vital Signs Temperature: 96.9 F Blood Pressure: 157/89 Pulse: 128 Respirations: 21 Pulse Ox (%): 94 - Physical Exam General: Unresponsive Respiratory: Clear to auscultation bilaterally, Diminished Cardiovascular: No edema, Regular rate/rhythm, Normal S1 S2 Gastrointestinal: Hypoactive, No tenderness Assessment And Plan - Current Problems (Diagnosis) (1) Respiratory failure Current Visit: No Status: Acute Plan: Patient is currently on a ventilator with a rapid A. fib plan to control the rate and then can be weaned off from the ventilator chest x-ray normal changes endotracheal tube satisfactory labs reviewed white count is declining patiently is currently on TPN triple therapy with vancomycin Flagyl and meropenem minimal oxygen room cultures so far negative Qualifiers: Chronicity: acute on chronic
[2022-08-29] MEDS: MIDAZOLAM HCL 2 MG/2 ML INJ IV PRN (13:04)
[2022-08-29] MEDS ORDERED: AMIODARONE HCL 150 MG in D5W 100 ML IV STA (13:12)
--- NOTE | 2022-08-29 15:40 | PN ---
Date of Progress Note: 08/29/2022 Diagnoses: Perforated sigmoid diverticulitis with intraabdominal abscess, status post laparotomy, si gmoid resection, end colostomy and drainage of peritoneal abscess. Patient doing well. No complaint . She is on mechanical ventilation. Review of Systems: Unable to be obtained. Physical Examination: Abdomen: Intact surgical site. Tube: SALVADOR drain serosanguineous. Extremities: Good capillary refill. Laboratory Data: Blood work shows WBC count of 16.7, hemoglobin of 9.1, and platelets of 177. Chlor rudy is 110, glucose 189. Assessment: A 66-year-old patient with above diagnosis and treatment. Medical service is working [address] in trying to get her better from the sepsis and also remove the mechanical ventilation, although o nce again in our standpoint, we are going to let them decide on that part. From the surgical standpo int, we are not going to use for sometimes. Ostomy area looks intact. So we will suggest the patient have a wound VAC to help us manage the midline incision. Ambulation and out of bed as s oon as possible, once the ventilator is off, and abdominal binder suggested. HM/MODL Voice ID: [id number] Report ID: [id number]
[2022-08-29] MEDS: AA 5%/D20W/ELECTROLYTES-TPN 2,000 ML IV SCH (16:49)
--- NOTE | 2022-08-29 18:34 | PN ---
Subjective: Patient is in ICU, still on ventilator, not in any new distress. According to the staff , patient's condition stayed stable overnight, but starting amiodarone because of arrhythmias. Objective: Vital Signs: Temperature 96.9, pulse 116, respirations 31, blood pressure 150/88. Lungs: Basal crackles. Heart: S1, S2. Regular. Abdomen: Soft, nontender. Bowel sounds present. Extremities: No edema. Laboratory Data: WBC 16.7, hemoglobin 9.1, platelets 177. Chemistry shows BUN of 58, creatinine 1, albumin level is 1.4. Current Medications: Include meropenem, Flagyl, vancomycin, and TPN. Assessment And Plan: Respiratory failure in a patient with chronic obstructive pulmonary disease exa cerbation; status post perforation of diverticulum, status post abscess formation and surgical evacua tion with colostomy placement. The patient is tolerating antibiotic without any challenges. Continu e current treatment. Monitor for signs of infection with WBC and fever trends; anemia of chronic dis ease; leukocytosis, improving; severe protein-calorie malnourishment. We will follow the patient tamara bradshaw. NF/MODL Voice ID: [id number] Report ID: [id number]
[2022-08-30] MEDS: LORazepam 2 MG/ML VIAL IV PRN ×3 (02:37→13:07)
[2022-08-30] MEDS: MIDAZOLAM HCL 2 MG/2 ML INJ IV PRN ×2 (03:13→06:41)
[2022-08-30] MEDS: FENTANYL CITR 100 MCG/2 ML IV PRN ×2 (03:36→11:19)
[2022-08-30] MEDS: VANCOMYCIN 1.5 GM in NA CHLORIDE 0.9% 500 ML IVPB SCH (03:38)
[2022-08-30 05:43] LABS: Absolute Lymphocytes (CBC) 1.1 K/uL (0.7-4.9); Hematocrit 26.2 % (36.0-45.0); Lymphocytes % 6.2 % (15.3-44.8); MCV 90.4 fL (80-100); MPV 7.6 fL (7.6-11.3)
[2022-08-30 05:59] LABS: Albumin 1.2 g/dL (3.4-5.0); Magnesium 1.9 mg/dL (1.8-2.4); Phosphorus 1.5 mg/dL (2.5-4.9); Potassium 3.5 mmol/L (3.5-5.1); Protein, Total 4.6 g/dL (6.4-8.2)
[2022-08-30] MEDS: METRONIDAZOLE 500mg IVPB 500 MG/100 ML BAG IV SCH ×3 (05:59→22:06)
--- NOTE | 2022-08-30 06:03 | P.PN ---
Date of Service: 08/30/22 Subjective: no acute events overnight HR improving, back into sinus rhythm remains intubated/sedated ROS: A complete review of systems was unable to be performed due to light sedation / mech ventilation Physical Exam: Gen: on mech vent HEENT: normal conjunctiva, sclera anicteric CV: regular rhythm, no edema Pulm: on mech ventilation Abd: ostomy with dark red output - minimal, SALVADOR drains x2 in place, minimal serosanguineous output Neuro: restless, moves extremities vitals reviewed Problem List acute hypoxemic respiratiory failure Acute on chronic COPD with exacerbation interstitial lung disease, fibrosis h/o Afib, paroxysmal LEOBARDO h/o Epistaxis Hypertension Cardiomyopathy/CHF, diastolic Sepsis/septic shock secondary to sigmoid colon perforation, now s/p colostomy severe protein calorie malnutrition acute on chronic COPD exacerbation acute CHF exacerbation, diastolic pulm is following, CT 08/21 - bilateral fibrosis. Currently intubated and on mechanical ventilation. Steroid on hold due to bowel perforation. Lasix also on hold. Patient resuscitated with IV fluid for hypotension on 08/26. Patient with baseline respiratory failure. She may be difficult to extubate. Pulm is following; FiO2 requirement improved want to optimize all systems prior to extubation h/o afib, new diagnosis during last admission; paroxysmal Coreg was held due to prior hypotension, eventually dc'd afib with rvr overnight 08/28-08/29, s/p lopressor x3, digoxin Cardiology following continued in afib with HR: 110s--120s start amio drip 08/29; in sinus rhythm 12/7 AM Abdominal pain/pelvic abscess/sepsis CT abd/pelvis w/ oral/rectal contrast: perforated diverticulum, air under diaphragm Dr. Tavares performed laparotomy with bowel resection and colostomy. SALVADOR drains in place Continue IV meropenem and vancomycin, flagyl continue TPN anticipated to not have bowel function quickly PICC in place Blood pressure has improved. Repeat blood cultures 08/26: No growth to date. Monitor and optimize electrolytes. Code: Full Dispo: will likely need LTAC, will discuss further with son Time Spent Managing Pts Care (In Minutes): 25
[2022-08-30 07:21] LABS: Blood Morphology Comment NOT SEEN (NOT SEEN); Platelet Estimate ADEQ
[2022-08-30] MEDS: Meropenem 1,000 MG in NA CHLORIDE 0.9% 100 ML IV SCH ×2 (07:29→21:25)
[2022-08-30] MEDS: FAMOTIDINE 20 MG/2 ML VIAL IV SCH ×2 (07:34→21:26)
[2022-08-30] MEDS: DEXMEDETOMIDINE HCL 200 MCG in NA CHLORIDE 0.9% 98 ML IV SCH ×2 (09:35→18:45)
[2022-08-30] MEDS ORDERED: POTASSIUM PHOS IN 0.9 % NACL 15 MMOL/250 ML BAG IV ONE (09:39)
--- NOTE | 2022-08-30 10:06 | RAD REPORT ---
[facility] CLINICAL HISTORY: Ventilated patient COMPARISON: August 29, 2022 FINDINGS: Endotracheal tube in good position PICC line is present. The tip is not well visualized and is uncertain if it lies within the distal valenzuela perior vena cava or right atrium No significant change in mild bilateral pulmonary opacities. Heart is mildly enlarged
[2022-08-30] MEDS ORDERED: FUROSEMIDE 20 MG/ 2ML VIAL IV ONE (11:52)
--- NOTE | 2022-08-30 11:55 | P.PN ---
Subjective Date of Service: 08/30/22 Chief Complaint: Respiratory failure it is post bowel resection Patient was a little anxious to pressure controlled dilation which helped her more hemodynamically stable renal function is improving still very agitated Review of Systems is unable to be obtained Physical Examination - Vital Signs Temperature: 97.7 F Blood Pressure: 152/85 Pulse: 102 Respirations: 26 Pulse Ox (%): 96 - Physical Exam General: Unresponsive Respiratory: Clear to auscultation bilaterally Cardiovascular: No edema, Regular rate/rhythm, Normal S1 S2, Irregular heart rate/rhythm Assessment And Plan - Current Problems (Diagnosis) (1) Respiratory failure Current Visit: No Status: Acute Plan: Patient's heart rate is under control agitated changed to pressure control ventilation and dexmedetomidine labs reviewed renal function is improving blood pressure is mildly elevated start patient on IV Lasix cultures are so far negative White count is mildly elevated patient is on PPN discussed with the son fully we can start weaning her soon oxygen requirement only 35% Qualifiers: Chronicity: acute on chronic
[2022-08-30] MEDS: AMIODARONE HCL 900 MG in Dextrose 5%-Water 482 ML IV SCH (12:08)
--- NOTE | 2022-08-30 16:06 | PN ---
Subjective: The patient is lying in bed on ventilator in ICU. Continued to be total dependent on ve ntilation with wound VAC in place to the abdominal wound. As per staff, the patient did not have any bowel movement. Small amount of blood was noted in the colostomy bag. No new wounds to the body. Vitals otherwise remained stable. Objective: Vital Signs: Current temperature is 97.7, pulse 102, respirations 26, blood pressure 152 /85. Lungs: Basal crackles. Heart: S1, S2. Regular. Abdomen: No bowel sounds. Wound VAC in place. Colostomy bag in place. Extremities: No edema. Laboratory Data: Shows WBC 17.3, slightly elevated more than yesterday from 16.7; hemoglobin 8.6, sl ightly lower than yesterday. Platelets are 128, down from yesterday 177 with chemistry showing BUN o f 51 and creatinine 0.8 . Albumin level is 1.2. Medications: The patient is currently on TPN, amiodarone drip, meropenem, and vancomycin. Assessment And Plan: Status post perforation of sigmoid colon and abdominal abscess, status post patrica gical intervention. The patient now with colostomy, remains with no bowel sounds, leukocytosis. We will recommend to get a CT abdomen and pelvis if the patient's white count remains pending to re-eval uate for any abscess formation or other inflammatory responses. Respiratory failure, chronic obstruc tive pulmonary disease exacerbation, surgical abdominal wound with wound VAC in place, anemia, thromb ocytopenia, possible sepsis. Consider repeating blood cultures. Continue current antibiotic treatme nt. Continue pulmonary hygiene. We will follow the patient closely. Prognosis is guarded. We will foll ow the patient closely. NF/MODL Voice ID: [id number] Report ID: [id number]
[2022-08-30] MEDS: AA 5%/D20W/ELECTROLYTES-TPN 2,000 ML, Lipids 20% 250 ML with MULTIVITAMINS INJ 10 ML IV SCH ×3 (17:28)
--- NOTE | 2022-08-30 19:01 | PN ---
Date of Progress Note: 08/30/2022 Diagnoses: Perforated diverticulitis with intraabdominal abscess, respiratory failure. From the surgical standpoint, patient is awake, although is still on the ventilator. Physical Examination: Abdomen: Intact surgical site. Ostomy viable. No gas yet. Midline has a wound VAC on it. Extremities: Good capillary refill. Tube: SALVADOR drain serosanguineous. Laboratory Data: Blood work shows WBC count of 17.3. Plan: Continue antibiotics. I believe we should follow the guidelines of Dr. Shipman. Cannot stop t he antibiotics yet, since she is at high risk for developing intraabdominal abscess again. No diet y et. To continue parenteral nutrition. Ventilator per Medical service. Cultures still pending. HM/MODL Voice ID: [id number] Report ID: [id number]
[2022-08-31] MEDS: LORazepam 2 MG/ML VIAL IV PRN ×3 (00:48→18:30)
[2022-08-31 05:27] LABS: Absolute Lymphocytes (CBC) 1.3 K/uL (0.7-4.9); Hematocrit 24.3 % (36.0-45.0); Lymphocytes % 8.1 % (15.3-44.8); MCV 89.9 fL (80-100); MPV 8.1 fL (7.6-11.3); RBC Red Blood Cell Count 2.71 M/uL (3.86-4.86)
[2022-08-31] MEDS: METRONIDAZOLE 500mg IVPB 500 MG/100 ML BAG IV SCH ×3 (05:31→21:53)
[2022-08-31 05:51] LABS: Albumin 1.1 g/dL (3.4-5.0); Bilirubin Total 1.4 mg/dL (0.2-1.0); Magnesium 1.8 mg/dL (1.8-2.4); Potassium 3.7 mmol/L (3.5-5.1); Protein, Total 4.4 g/dL (6.4-8.2)
[2022-08-31] MEDS ORDERED: MAGNESIUM SULFATE 1 gm IVPB 1 GM/100 ML BAG IV ONE (06:07)
--- NOTE | 2022-08-31 06:39 | P.PN ---
Date of Service: 08/31/22 Subjective: continues with some tachypnea dilaudid given this morning, BP dropped having air output into ostomy now ETT Tube exchanged this morning due to cuff leak ROS: A complete review of systems was unable to be performed due to light sedation / mech ventilation Physical Exam: Gen: on mech vent HEENT: normal conjunctiva, sclera anicteric, ETT in place CV: regular rhythm, trace-1+ bilateral lower extremity edema Pulm: on mech ventilation Abd: ostomy with minimal stool output, +gas. SALVADOR drains x2 in place, minimal serosanguineous output Neuro: moves extremities spontaneously vitals reviewed Problem List acute hypoxemic respiratiory failure Acute on chronic COPD with exacerbation interstitial lung disease, fibrosis h/o Afib, paroxysmal LEOBARDO h/o Epistaxis Hypertension Cardiomyopathy/CHF, diastolic Sepsis/septic shock secondary to sigmoid colon perforation, now s/p colostomy severe protein calorie malnutrition anemia thrombocytopenia acute on chronic COPD exacerbation acute CHF exacerbation, diastolic pulm is following, CT 08/21 - bilateral fibrosis. Currently intubated and on mechanical ventilation - since surgery Steroid discontinued due to bowel perforation. Lasix also on hold. Patient resuscitated with IV fluid for hypotension on 08/26. Patient with baseline respiratory failure. She may be difficult to extubate. Pulm is following; FiO2 requirement improved h/o afib, new diagnosis during last admission; paroxysmal Coreg was held due to prior hypotension, eventually dc'd afib with rvr overnight 08/28-08/29, s/p lopressor x3, digoxin Cardiology following continued in afib with HR: 110s-120s start amio drip 08/29; in sinus rhythm 08/30 AM Abdominal pain/pelvic abscess/sepsis CT abd/pelvis w/ oral/rectal contrast: perforated diverticulum, air under diaphragm Dr. Tavares performed laparotomy with bowel resection and colostomy. SALVADOR drains in place Continue IV meropenem and vancomycin, flagyl continue TPN anticipated to not have bowel function quickly - with some air output 08/[address] leukocytosis persists, with minimal change hgb and platelets downtrending d-dimer, fibrinogen, PTT, inr ordered, pt is at risk of developing DIC anemia acute on chronic, unclear etiology, suspect bone marrow suppression, with some dark bloody output a few days ago in ostomy monitor for bleeding may need transfusion Repeat blood cultures 08/26: No growth to date. Monitor and optimize electrolytes. Code: Full Dispo: LTAC once stable son updated on 08/31 agreeable with LTAC discussed guarded prognosis Time Spent Managing Pts Care (In Minutes): 35
[2022-08-31] MEDS ORDERED: KCL 20 MEQ/100 mL IVPB 20 MEQ/100 ML BAG IV SCH (07:00)
[2022-08-31] MEDS: FAMOTIDINE 20 MG/2 ML VIAL IV SCH ×2 (07:24→21:12)
[2022-08-31] MEDS: DEXMEDETOMIDINE HCL 200 MCG in NA CHLORIDE 0.9% 98 ML IV SCH (07:24)
[2022-08-31] MEDS: Meropenem 1,000 MG in NA CHLORIDE 0.9% 100 ML IV SCH ×2 (07:25→21:12)
[2022-08-31] MEDS ORDERED: HYDROMORPHONE HCL 1 MG/ML INJ IV PRN (08:40)
[2022-08-31] MEDS: HYDROMORPHONE HCL 0.5 MG/0.5 ML INJ IV PRN ×2 (08:51→16:33)
--- NOTE | 2022-08-31 08:57 | RAD REPORT ---
EXAM DESCRIPTION: RAD - Chest Single View - 08/31/2022 8:34 am CLINICAL HISTORY: trachial tube placement COMPARISON: Portable 08/30/2022 TECHNIQUE: AP portable chest image was obtained 08/31/2022 8:34 am . FINDINGS: Endotracheal tube has been placed. Tip of the tube is at the T5 level, top of the aortic a rch, 5 cm above the leonard. This is adequate positioning. Left subclavian PICC line remains in place. Lung volumes are low. Increased bibasilar opacification remains. No progressive lung parenchymal proc ess. Cardiomediastinal silhouette is stable. No pneumothorax or enlarging pleural effusion. No acute bony abnormality seen. No acute aortic findings suspected. IMPRESSION: Endotracheal tube is in place with the tip 5 cm above the leonard. This is adequately pos itioned. Bibasilar lung parenchymal opacification has not changed.
[2022-08-31] MEDS ORDERED: NA CHLORIDE 0.9% 500 ML IV ONE (09:29)
[2022-08-31] MEDS ORDERED: KCL 20 MEQ/100 mL IVPB 100 ML IV ONE (09:46)
--- NOTE | 2022-08-31 13:27 | P.PN ---
Subjective Date of Service: 08/31/22 Chief Complaint: Respiratory failure it is post bowel resection Patient developed some agitation respiratory distress on Precedex drip was given some Dilaudid her blood pressure dropped given fluid bolus and she did much better with low-dose of narcotic Review of Systems is unable to be obtained Physical Examination - Vital Signs Temperature: 97.6 F Blood Pressure: 103/48 Pulse: 89 Respirations: 19 Pulse Ox (%): 99 - Physical Exam General: Unresponsive Respiratory: Clear to auscultation bilaterally, Diminished Gastrointestinal: Hypoactive, Other (Visible stool in the bag) Assessment And Plan - Current Problems (Diagnosis) (1) Respiratory failure Current Visit: No Status: Acute Plan: Respiratory failure with agitation presumed secondary to abdominal discomfort use Dilaudid as needed labs reviewed mildly anemic white count has stabilized slight decline in her hemoglobin chest x-ray is clear endotracheal tube was advanced by 1.5 cm so far cultures are negative patient reverted back to normal sinus rhythm on amiodarone repeat DVT prophylaxis slight decline in her platelet count Qualifiers: Chronicity: acute on chronic
--- NOTE | 2022-08-31 13:38 | P.PN ---
Subjective Date of Service: 08/31/22 Chief Complaint: Respiratory failure it is post bowel resection Patient was a little anxious to pressure controlled dilation which helped her more hemodynamically stable renal function is improving still very agitated Physical Examination - Vital Signs Temperature: 97.6 F Blood Pressure: 103/48 Pulse: 89 Respirations: 19 Pulse Ox (%): 99 Assessment And Plan - Current Problems (Diagnosis) (1) Respiratory failure Current Visit: No Status: Acute Plan: Patient's heart rate is under control agitated changed to pressure control ventilation and dexmedetomidine labs reviewed renal function is improving blood pressure is mildly elevated start patient on IV Lasix cultures are so far negative White count is mildly elevated patient is on PPN discussed with the son fully we can start weaning her soon oxygen requirement only 35% Qualifiers: Chronicity: acute on chronic
[2022-08-31] MEDS ORDERED: VANCOMYCIN 1.25 GM in NA CHLORIDE 0.9% 250 ML IVPB SCH (16:00)
[2022-08-31] MEDS: AA 5%/D20W/ELECTROLYTES-TPN 2,000 ML IV SCH (17:25)
[2022-08-31] MEDS ORDERED: VANCOMYCIN 250 MG in NA CHLORIDE 0.9% 100 ML IVPB ONE (18:00)
[2022-08-31] MEDS: AMIODARONE HCL 900 MG in Dextrose 5%-Water 482 ML IV SCH (18:24)
[2022-08-31] MEDS: MIDAZOLAM HCL 2 MG/2 ML INJ IV PRN (18:40)
[2022-08-31] MEDS ORDERED: propofoL 1,000 MG/100 ML VIAL IV SCH (23:45)
[2022-09-01] MEDS: propofoL 500 MG/50 ML ML IV PRN ×2 (01:44→04:25)
[2022-09-01] MEDS: HYDROMORPHONE HCL 2 MG/ML inj IV PRN ×2 (04:35→13:26)
[2022-09-01] MEDS: METRONIDAZOLE 500mg IVPB 500 MG/100 ML BAG IV SCH (05:22)
[2022-09-01 05:33] LABS: Hematocrit 24.8 % (36.0-45.0); MCV 97.7 fL (80-100); RBC Red Blood Cell Count 2.54 M/uL (3.86-4.86)
[2022-09-01 06:16] LABS: Protime INR 1.37
[2022-09-01 08:08] LABS: Albumin 1.1 g/dL (3.4-5.0); Bilirubin Total 1.2 mg/dL (0.2-1.0); Magnesium 1.8 mg/dL (1.6-2.4); Phosphorus 2.7 mg/dL (2.5-4.9); Potassium 4.6 mmol/L (3.5-5.1); Protein, Total 4.6 g/dL (6.4-8.2)
[2022-09-01] MEDS: Meropenem 1,000 MG in NA CHLORIDE 0.9% 100 ML IV SCH ×2 (09:26→20:06)
[2022-09-01] MEDS: ENOXAPARIN 40 MG/0.4 ML SQ SCH (09:26)
[2022-09-01] MEDS: FAMOTIDINE 20 MG/2 ML VIAL IV SCH ×2 (09:27→20:05)
--- NOTE | 2022-09-01 09:39 | RAD REPORT ---
EXAM DESCRIPTION: RAD - Chest Single View - 09/01/2022 8:40 am CLINICAL HISTORY: ventilator protocol Chest pain. COMPARISON: Chest Single View dated 08/31/2022; Chest Single View dated 08/30/2022; Chest Single View dated 08/29/2022; Chest Single View dated 08/27/2022 FINDINGS: Portable technique limits examination quality. Tip of the endotracheal tube is above the leonard at the level of the superior aortic arch. Left PICC line has tip in the SVC. Moderate bilateral pulmonary opacities are noted, moderately worsened since the comparative study. The heart is mildly enlarged. IMPRESSION: Moderate worsening in lung aeration seen since comparative study.
[2022-09-01] MEDS: HYDROMORPHONE HCL 0.5 MG/0.5 ML INJ IV PRN ×3 (09:42→23:14)
[2022-09-01] MEDS: DAPTOmycin 500 MG in NA CHLORIDE 0.9% 100 ML IVPB SCH (12:28)
[2022-09-01] MEDS: LORazepam 2 MG/ML VIAL IV PRN ×2 (12:49→20:02)
--- NOTE | 2022-09-01 13:22 | P.PN ---
Subjective Date of Service: 09/01/22 Chief Complaint: Respiratory failure it is post bowel resection His condition appears to be more stable this morning she was very agitated yesterday required multiple doses of sedation and narcotic patient was also biting the tube currently hemodynamically stable looks more comfortable on a ventilator unresponsive Review of Systems is unable to be obtained Physical Examination - Vital Signs Temperature: 97.4 F Blood Pressure: 107/52 Pulse: 108 Respirations: 22 Pulse Ox (%): 96 - Physical Exam General: Unresponsive Respiratory: Clear to auscultation bilaterally Cardiovascular: No edema, Regular rate/rhythm Gastrointestinal: Hypoactive Assessment And Plan - Current Problems (Diagnosis) (1) Respiratory failure Current Visit: No Status: Acute Plan: Respiratory failure labs reviewed white count is declining steadily patient is anemic transfused blood pressure now stable rate is controlled x-ray shows slightly more prominent interstitial changes she is improving she looks much better today than she has ever been ostomy seems to be working platelet count is mildly reduced agree with Lovenox for DVT prophylaxis not sure why infectious disease started her on daptomycin currently on meropenem Qualifiers: Chronicity: acute on chronic
[2022-09-01] MEDS ORDERED: NA CHLORIDE 0.9% 250 ML ONE (13:52)
[2022-09-01] MEDS: AA 5%/D20W/ELECTROLYTES-TPN 2,000 ML, Lipids 20% 250 ML with MULTIVITAMINS INJ 10 ML IV SCH ×3 (16:52)
[2022-09-01] MEDS ORDERED: ALBUMIN HUMAN 25% 100 ML IV ONE (17:00)
--- NOTE | 2022-09-01 17:06 | PN ---
Date of Progress Note: 09/01/2022 Subjective: Status post bowel resection with end colostomy and drainage of a large intraperitoneal a bscess. Medically, she is still intubated, although awake and alert. Objective: Chest: Clear. Abdomen: Soft and depressible. There is a wound VAC present and ostomy looks viable and also puttin g gas. Extremities: Good capillary refill. Laboratory Data: Blood work shows a WBC count of 15.5. Plan: We have to start thinking about feeding on her so the feeding tube will have to be placed. On ce again, we should coordinate that with the medical doctors. We do not want to start feeding and th en extubate her immediately because we are trying to diminish the chance of aspiration, but at the [facility] time we should plan to start putting the feeding tube and start feeding, if possible, as soon as p ossible. CHETNA/FAZAL Voice ID: [id number] Report ID: [id number]
--- NOTE | 2022-09-01 20:48 | P.PN ---
Date of Service: 09/01/22 Subjective: borderline low BP hgb down, no bleed +stool output in ostomy ROS: A complete review of systems was unable to be performed due to light sedation / mech ventilation Physical Exam: Gen: on mech vent HEENT: normal conjunctiva, sclera anicteric, ETT in place CV: regular rhythm, trace-1+ bilateral lower extremity edema Pulm: on mech ventilation, b/l crackles Abd: ostomy with stool output, +gas. SALVADOR drains x2 in place, minimal serosanguineous output Neuro: sedated vitals reviewed Problem List acute hypoxemic respiratiory failure Acute on chronic COPD with exacerbation interstitial lung disease, fibrosis h/o Afib, paroxysmal LEOBARDO h/o Epistaxis Hypertension Cardiomyopathy/CHF, diastolic Sepsis/septic shock secondary to sigmoid colon perforation, now s/p colostomy severe protein calorie malnutrition anemia thrombocytopenia acute on chronic COPD exacerbation acute CHF exacerbation, diastolic pulm is following, CT 08/21 - bilateral fibrosis. Currently intubated and on mechanical ventilation - since surgery Steroid discontinued due to bowel perforation. Lasix also on hold. Patient resuscitated with IV fluid for hypotension on 08/26. Patient with baseline respiratory failure. She will be difficult to extubate. Pulm is following; FiO2 requirement improved CXR 09/01 - worsening b/l opacities h/o afib, new diagnosis during last admission; paroxysmal Coreg was held due to prior hypotension, eventually dc'd afib with rvr overnight 08/28-08/29, s/p lopressor x3, digoxin Cardiology following continued in afib with HR: 110s-120s started amio drip 08/29; in sinus rhythm / AM Abdominal pain/pelvic abscess/sepsis secondary to perforated diverticulum with abscess Dr. Tavares performed laparotomy with bowel resection and colostomy. SALVADOR drains in place Continue IV meropenem and vancomycin, flagyl; ID consulted, leukocytosis with minimal change continue TPN stool output noted 09/[address] hgb and platelets downtrending 1uPRBC ordered 09/01 trend d-dimer, fibrinogen, PTT, inr, pt is at risk of developing DIC anemia acute on chronic, unclear etiology, suspect bone marrow suppression, with some dark bloody output a few days ago in ostomy no further bleeding noted transfusion as noted above Repeat blood cultures 08/26: No growth to date. Monitor and optimize electrolytes. Code: Full Dispo: LTAC once stable. son agreeable with LTAC once appropriate updated son 09/01 Time Spent Managing Pts Care (In Minutes): 35
[2022-09-01 21:39] LABS: Hematocrit 24.7 % (36.0-45.0)
[2022-09-01] MEDS: MIDAZOLAM HCL 2 MG/2 ML INJ IV PRN (21:44)
--- NOTE | 2022-09-01 22:33 | PN ---
Date of Progress Note: 09/01/2022 Subjective: Seen by bedside. She is on the ventilator and sedated. Review of Systems: No reported problems per staff. Her heart has been in regular rhythm since amiodarone was started. Review of systems unable with any history due to being intubated on the ventilator and sedated. Physical Examination: Vital Signs: Reviewed. Head and Neck: Pupils are equal and reactive to light. No JVD. No cervical lymphadenopathy. Neck is supple. Thyroid is not enlarged. Lungs: Clear to auscultation bilaterally. No rhonchi, wheezing, or crackles. No accessory muscle u se. Heart: Regular rate and rhythm. No extra sounds. Abdomen: Soft, nontender. Bowel sounds positive. No organomegaly. No masses or hernia. No rigidi ty or rebound. Extremities: No clubbing or cyanosis. Intact pulses. Skin: No rashes. Neurologic: She is sedated on the vent. Lymph Nodes: No cervical or axillary lymphadenopathy. Investigations: BUN 58 and creatinine is 0.9. Assessment And Recommendations: Atrial fibrillation with rapid ventricular response converted to sin us rhythm, on amiodarone. To continue amiodarone at 0.5 mg/minute and carefully monitor liver enzyme s on daily basis and to check LFTs on daily basis. SR/MODL Voice ID: [id number] Report ID: [id number]
[2022-09-02] MEDS: AMIODARONE HCL 900 MG in Dextrose 5%-Water 482 ML IV SCH (00:31)
[2022-09-02] MEDS: LORazepam 2 MG/ML VIAL IV PRN ×4 (01:05→22:19)
[2022-09-02] MEDS: HYDROMORPHONE HCL 0.5 MG/0.5 ML INJ IV PRN ×4 (03:46→19:00)
[2022-09-02 04:18] LABS: Hematocrit 25.2 % (36.0-45.0); MCV 89.7 fL (80-100); MPV 8.7 fL (7.6-11.3); RBC Red Blood Cell Count 2.81 M/uL (3.86-4.86)
[2022-09-02 04:32] LABS: Albumin 1.6 g/dL (3.4-5.0); Bilirubin Total 1.7 mg/dL (0.2-1.0); Magnesium 2.1 mg/dL (1.6-2.4); Potassium 4.4 mmol/L (3.5-5.1)
--- NOTE | 2022-09-02 06:13 | P.PN ---
Date of Service: 09/02/22 Subjective: BP improved, stool output, with some dark blood in ostomy bag seems to be improving ROS: A complete review of systems was unable to be performed due to light sedation / mech ventilation Physical Exam: Gen: on mech vent HEENT: normal conjunctiva, sclera anicteric, ETT in place CV: regular rhythm, trace-1+ bilateral lower extremity edema Pulm: on mech ventilation, b/l crackles Abd: ostomy with stool output, +gas, +dark blood. SALVADOR drains x2 in place, minimal serosanguineous output Neuro: sedated vitals reviewed Problem List acute hypoxemic respiratiory failure Acute on chronic COPD with exacerbation interstitial lung disease, fibrosis h/o Afib, paroxysmal LEOBARDO h/o Epistaxis Hypertension Cardiomyopathy/CHF, diastolic Sepsis/septic shock secondary to sigmoid colon perforation, now s/p colostomy severe protein calorie malnutrition anemia thrombocytopenia acute on chronic COPD exacerbation acute CHF exacerbation, diastolic CT 08/21 - bilateral fibrosis. Currently intubated and on mechanical ventilation - since surgery pulm consulted Steroid discontinued due to bowel perforation. Lasix also on hold. Patient resuscitated with IV fluid for hypotension on 08/26. Patient with baseline respiratory failure. She will be difficult to extubate. Pulm is following; FiO2 requirement improved CXR 09/01 - worsening b/l opacities h/o afib, new diagnosis during last admission; paroxysmal Coreg was held due to prior hypotension, eventually dc'd afib with rvr overnight 08/28-08/29, s/p lopressor x3, digoxin Cardiology following continued in afib with HR: 110s-120s started amio drip 08/29; in sinus rhythm / AM; continue drip Abdominal pain/pelvic abscess/sepsis secondary to perforated diverticulum with abscess Dr. Tavares performed laparotomy with bowel resection and colostomy. SALVADOR drains in place was on empiric merrem and vanc - ID changed to daptomycin on 09/01 wound culture growing enterococcus continue TPN stool output noted 09/[address] hgb and platelets were downtrending 1uPRBC ordered 09/01 improved trend d-dimer, fibrinogen, PTT, inr, pt is at risk of developing DIC anemia acute on chronic, unclear etiology, suspect bone marrow suppression, with some dark bloody output a few days ago in ostomy no further bleeding noted transfusion as noted above Repeat blood cultures 08/26: No growth to date. Monitor and optimize electrolytes. Code: Full Dispo: LTAC once stable. son agreeable with LTAC once appropriate Time Spent Managing Pts Care (In Minutes): 35
--- NOTE | 2022-09-02 07:48 | RAD REPORT ---
EXAM DESCRIPTION: RAD - Chest Single View - 09/02/2022 7:39 am CLINICAL HISTORY: ventilator protocol COMPARISON: 09/01/2022 FINDINGS: Lines: Endotracheal tube at the aortic arch. Left subclavian approach PICC. This terminate s overlying the superior cavoatrial junction. Lungs: Coarsened interstitial markings. Pleural: No significant pleural effusions or pneumothorax. Cardiac: The heart size is within normal limits. Mediastinum: Within normal limits. Bones: No acute fractures. Other: None IMPRESSION: No significant change in aeration of the lungs. Most of the findings are chronic seconda ry to mixed emphysema and pulmonary fibrosis. Support apparatus in stable positioning. .
[2022-09-02] MEDS: Meropenem 1,000 MG in NA CHLORIDE 0.9% 100 ML IV SCH ×2 (08:26→19:40)
[2022-09-02] MEDS: FAMOTIDINE 20 MG/2 ML VIAL IV SCH ×2 (08:26→19:41)
[2022-09-02] MEDS ORDERED: LEVALBUTEROL 1.25 MG/3 ML NEB ONE (09:01)
[2022-09-02] MEDS: LEVALBUTEROL 1.25 MG/3 ML NEB NEB PRN ×2 (09:04→20:10)
--- NOTE | 2022-09-02 11:50 | P.PN ---
Subjective Date of Service: 09/02/22 Chief Complaint: Respiratory failure agitation on a ventilator Patient continues to remain agitated requiring sedation alert but not cooperative dynamically stable normal sinus rhythm Review of Systems is unable to be obtained Physical Examination - Vital Signs Temperature: 97.9 F Blood Pressure: 155/66 Pulse: 101 Respirations: 36 Pulse Ox (%): 90 - Physical Exam General: Alert, Unresponsive Respiratory: Clear to auscultation bilaterally Cardiovascular: No edema, Regular rate/rhythm Gastrointestinal: Normal bowel sounds, Soft and benign Assessment And Plan - Current Problems (Diagnosis) (1) Respiratory failure Current Visit: No Status: Acute Plan: Respiratory failure continue with present management FiO2 of 40% assist control and has been suctioned is on Xopenex blood pressure is stable slight increase in BUN and creatinine white count declining again patient is on daptomycin and meropenem platelet count stable Enterococcus isolated from the wound which is sensitive to vancomycin Qualifiers: Chronicity: acute on chronic
[2022-09-02] MEDS: ENOXAPARIN 40 MG/0.4 ML SQ SCH (12:27)
[2022-09-02] MEDS: DAPTOmycin 500 MG in NA CHLORIDE 0.9% 100 ML IVPB SCH (13:15)
[2022-09-02] MEDS: MIDAZOLAM HCL 2 MG/2 ML INJ IV PRN (13:15)
[2022-09-02] MEDS: AA 5%/D20W/ELECTROLYTES-TPN 2,000 ML IV SCH (16:41)
[2022-09-03] MEDS: HYDROMORPHONE HCL 0.5 MG/0.5 ML INJ IV PRN ×3 (00:24→12:21)
[2022-09-03] MEDS: LEVALBUTEROL 1.25 MG/3 ML NEB NEB PRN ×2 (01:30→14:27)
[2022-09-03] MEDS: LORazepam 2 MG/ML VIAL IV PRN ×3 (03:30→12:45)
[2022-09-03 04:59] LABS: Hematocrit 25.5 % (36.0-45.0); MCV 90.5 fL (80-100); RBC Red Blood Cell Count 2.82 M/uL (3.86-4.86)
[2022-09-03 05:11] LABS: Albumin 1.4 g/dL (3.4-5.0); Bilirubin Total 1.5 mg/dL (0.2-1.0); Magnesium 2.2 mg/dL (1.6-2.4); Potassium 4.5 mmol/L (3.5-5.1)
[2022-09-03] MEDS: AMIODARONE HCL 900 MG in Dextrose 5%-Water 482 ML IV SCH (05:42)
--- NOTE | 2022-09-03 06:03 | P.PN ---
Date of Service: 09/03/22 Subjective: improving no acute events overnight remains on vent stool + maroonish blood output in ostomy afebrile ROS: A complete review of systems was unable to be performed due to light sedation / mech ventilation Physical Exam: Gen: on mech vent HEENT: normal conjunctiva, sclera anicteric, ETT in place CV: regular rhythm, trace-1+ bilateral lower extremity edema Pulm: on mech ventilation, b/l crackles Abd: ostomy with stool output, +gas, +dark blood. SALVADOR drains x2 in place, minimal serosanguineous output Neuro: sedated garay in place vitals reviewed Problem List acute hypoxemic respiratiory failure Acute on chronic COPD with exacerbation interstitial lung disease, fibrosis h/o Afib, paroxysmal LEOBARDO h/o Epistaxis Hypertension Cardiomyopathy/CHF, diastolic Sepsis/septic shock secondary to sigmoid colon perforation, now s/p colostomy severe protein calorie malnutrition anemia thrombocytopenia acute on chronic COPD exacerbation acute CHF exacerbation, diastolic CT 08/21 - bilateral fibrosis. was improving slowly, then developed perforation Currently intubated and on mechanical ventilation - since surgery pulm consulted; Steroid discontinued due to bowel perforation. Lasix also held. Patient resuscitated with IV fluid for hypotension on 08/26. Patient with baseline respiratory failure. She will be difficult to extubate. Pulm is following; FiO2 requirement improved CXR 09/01 - worsening b/l opacities; repeat stable h/o afib, new diagnosis during last admission; paroxysmal Coreg was held due to prior hypotension, eventually dc'd afib with rvr overnight 08/28-08/29, s/p lopressor x3, digoxin Cardiology following continued in afib with HR: 110s-120s started amio drip 08/29; in sinus rhythm 12/7 AM; continue drip Abdominal pain/pelvic abscess/sepsis secondary to perforated diverticulum with abscess Dr. Tavares performed laparotomy with bowel resection and colostomy. SALVADOR drains in place was on empiric merrem and vanc - ID changed to daptomycin on 09/01 to cover for VRE; continues on merrem//dapto wound culture growing enterococcus continue TPN via PICC stool output noted since 09/[address] Tavares, ok to start trickle feeds dobhoff ordered 09/03, start tube feeds at 10ml/hr for now, nothing more than that for now hgb and platelets were downtrending 1uPRBC ordered 09/01 improved / stable trend d-dimer, fibrinogen, PTT, inr, pt is at risk of developing DIC monitor for bleeding, continue lvoenox for DVT prophylaxis anemia acute on chronic, unclear etiology, suspect bone marrow suppression, with some dark bloody output a few days ago in ostomy no further bleeding noted transfusion as noted above Repeat blood cultures 08/26: No growth to date. Monitor and optimize electrolytes. Code: Full Dispo: LTAC once stable. son agreeable with LTAC once appropriate, ~1-2 days can start process Time Spent Managing Pts Care (In Minutes): 35
[2022-09-03] MEDS: MIDAZOLAM HCL 2 MG/2 ML INJ IV PRN (06:38)
[2022-09-03] MEDS: HYDROMORPHONE HCL 2 MG/ML inj IV PRN ×3 (06:55→21:10)
[2022-09-03] MEDS: FAMOTIDINE 20 MG/2 ML VIAL IV SCH ×2 (07:47→21:10)
[2022-09-03] MEDS: ENOXAPARIN 40 MG/0.4 ML SQ SCH (07:47)
[2022-09-03] MEDS: Meropenem 1,000 MG in NA CHLORIDE 0.9% 100 ML IV SCH ×2 (07:47→21:11)
--- NOTE | 2022-09-03 11:33 | P.PN ---
Subjective Date of Service: 09/03/22 Chief Complaint: Respiratory failure agitation on a ventilator Patient's condition is steadily improving requiring less sedation agitation is decreased she is currently on SIMV plan to wean Maddy responsive Review of Systems is unable to be obtained Physical Examination - Vital Signs Temperature: 96.9 F Blood Pressure: 92/48 Pulse: 94 Respirations: 20 Pulse Ox (%): 98 - Physical Exam General: Alert, Unresponsive Respiratory: Clear to auscultation bilaterally Cardiovascular: No edema, Normal pulses, Normal S1 S2 Assessment And Plan - Current Problems (Diagnosis) (1) Respiratory failure Current Visit: No Status: Acute Plan: Respiratory failure patient's condition is improved blood pressure is slightly low chemistries reviewed renal function has improved White count is decreased significantly platelet count is stable chest x-ray ordered for tomorrow Qualifiers: Chronicity: acute on chronic
[2022-09-03] MEDS: DAPTOmycin 500 MG in NA CHLORIDE 0.9% 100 ML IVPB SCH (14:01)
[2022-09-03] MEDS ORDERED: JEVITY 1.5 CAL LIQUID 1,000 ML BOT FT SCH (15:00)
--- NOTE | 2022-09-03 16:04 | RAD REPORT ---
EXAM DESCRIPTION: RAD - Abdomen 1 View (KUB) - 09/03/2022 3:46 pm CLINICAL HISTORY: Dobhoff placement COMPARISON: None FINDINGS/IMPRESSION: Weighted feeding tube tip terminates in the christa-pyloric region. Bowel gas michele shahram is nonobstructive.
[2022-09-03] MEDS: AA 5%/D20W/ELECTROLYTES-TPN 2,000 ML IV SCH (16:13)
[2022-09-04] MEDS: LORazepam 2 MG/ML VIAL IV PRN ×4 (00:05→21:51)
[2022-09-04] MEDS: HYDROMORPHONE HCL 2 MG/ML inj IV PRN (02:34)
[2022-09-04 05:00] LABS: Hematocrit 24.3 % (36.0-45.0); MCV 90.8 fL (80-100); MPV 9.1 fL (7.6-11.3); RBC Red Blood Cell Count 2.68 M/uL (3.86-4.86)
[2022-09-04 05:19] LABS: Albumin 1.3 g/dL (3.4-5.0); Bilirubin Total 1.3 mg/dL (0.2-1.0); Potassium 4.7 mmol/L (3.5-5.1); Protein, Total 4.8 g/dL (6.4-8.2)
[2022-09-04 05:50] LABS: Magnesium 2.1 mg/dL (1.6-2.4); Phosphorus 3.5 mg/dL (2.5-4.9)
--- NOTE | 2022-09-04 06:29 | P.PN ---
Date of Service: 09/04/22 Subjective: afib yesterday, converted to sinus last night dobhoff placed yesterday, tolerating trickle feeds ROS: A complete review of systems was unable to be performed due to light sedation / mech ventilation Physical Exam: Gen: on mech vent HEENT: normal conjunctiva, sclera anicteric, ETT in place, dobhoff in place CV: regular rhythm, trace bilateral lower extremity edema Pulm: on mech ventilation, diminished at bases Abd: wound vac in place, ostomy with stool output, +gas. SALVADOR drains x2 in place, minimal serosanguineous output Neuro: moves extremities, blinks eyes to verbal stimuli, not following commands garay in place vitals reviewed Problem List acute hypoxemic respiratiory failure Acute on chronic COPD with exacerbation interstitial lung disease, fibrosis h/o Afib, paroxysmal LEOBARDO h/o Epistaxis Hypertension Cardiomyopathy/CHF, diastolic Sepsis/septic shock secondary to sigmoid colon perforation, now s/p colostomy severe protein calorie malnutrition anemia thrombocytopenia acute on chronic COPD exacerbation acute CHF exacerbation, diastolic CT 08/21 - bilateral fibrosis. was improving slowly, then developed perforation Currently intubated and on mechanical ventilation - since surgery pulm consulted; Steroid discontinued due to bowel perforation. Lasix also held. Patient resuscitated with IV fluid for hypotension on 08/26. Patient with baseline respiratory failure. She will be difficult to extubate. Pulm is following; FiO2 requirement improved CXR 09/01 - worsening b/l opacities; repeat stable patient not following commands only receiving ativan and dilaudid, minimize doses. she gets very tachypneic and tachycardic when attempting to wean 09/03, went into afib w/ RVR when attempting spont breathing trials may need a trach h/o afib, new diagnosis during last admission; paroxysmal Coreg was held due to prior hypotension, eventually dc'd afib with rvr overnight 08/28-08/29, s/p lopressor x3, digoxin Cardiology following started amio drip 08/29; in sinus rhythm 12/7 AM; continue drip until able to transition to PO Abdominal pain/pelvic abscess/sepsis secondary to perforated diverticulum with abscess1 Dr. Tavares performed laparotomy with bowel resection and colostomy. SALVADOR drains in place was on empiric merrem and vanc - ID changed to daptomycin on 09/01 to cover for VRE; continues on merrem//dapto wound culture growing enterococcus improving continue TPN via PICCf dobhoff placed 09/03 started trickle feeds, transition TPN/Tube feeds over next ~24-48hrs stool output noted since 09/01 hgb and platelets were downtrending 1uPRBC ordered 09/01 improved / stable was trending d-dimer, fibrinogen, PTT, inr, pt is at risk of developing DIC;; improving monitor for bleeding, continue Lovenox for DVT prophylaxis anemia acute on chronic, unclear etiology, suspect bone marrow suppression, with some dark bloody output a few days ago in ostomy no other bleeding noted, no blood seen in ostomy 09/04 transfusion as noted above Repeat blood cultures 08/26: No growth to date. Monitor and optimize electrolytes. Code: Full Dispo: LTAC once stable. son agreeable with LTAC once appropriate, ~2-3 days can start process; Time Spent Managing Pts Care (In Minutes): 35
[2022-09-04] MEDS: ENOXAPARIN 40 MG/0.4 ML SQ SCH (07:51)
[2022-09-04] MEDS: Meropenem 1,000 MG in NA CHLORIDE 0.9% 100 ML IV SCH ×2 (07:52→21:51)
[2022-09-04] MEDS: FAMOTIDINE 20 MG/2 ML VIAL IV SCH ×2 (07:52→21:51)
--- NOTE | 2022-09-04 07:52 | RAD REPORT ---
[facility] 6[facility]06 [facility] CLINICAL HISTORY: Respiratory failure COMPARISON: September 02, 2022 FINDINGS: Endotracheal tube in good position Feeding tube enters the stomach. Tip is not included in the field of view. Heart remains enlarged. No significant change in the bilateral pulmonary opacities
[2022-09-04] MEDS: HYDROMORPHONE HCL 0.5 MG/0.5 ML INJ IV PRN ×3 (09:02→17:10)
[2022-09-04 11:08] LABS: Arterial Blood Carboxyhemoglob 1.7 % (0-1.5); Blood Gas Oxyhemoglobin 92.7 % (94-97); Blood O2 Saturation 95.6 % (92-98.5)
--- NOTE | 2022-09-04 11:33 | P.PN ---
Subjective Date of Service: 09/04/22 Chief Complaint: Respiratory failure agitation on a ventilator Subjective: No new changes Patient laying in ICU unresponsive no new acute event in last 24 hours Review of Systems is unable to be obtained Physical Examination - Vital Signs Temperature: 98.3 F Blood Pressure: 109/51 Pulse: 98 Respirations: 23 Pulse Ox (%): 98 - Physical Exam General: Unresponsive HEENT: Atraumatic, Normocephalic Neck: Supple, JVD not distended Respiratory: Crackles/rales Cardiovascular: Normal S1 S2 Gastrointestinal: Normal bowel sounds, No rebound, No guarding Musculoskeletal: No swelling, No contractures Assessment And Plan - Plan Respiratory failure currently on ventilator and unresponsive Pelvic abscess s/p I&D Anemia of chronic disease Severe protein calorie malnourishment Continue daptomycin and meropenem
--- NOTE | 2022-09-04 11:58 | P.PN ---
Subjective Date of Service: 09/04/22 Chief Complaint: Respiratory failure agitation on a ventilator, perforated sigmoid diverticu Subjective: Improving (from GI standpoint) Review of Systems is unable to be obtained Physical Examination - Vital Signs Temperature: 98.3 F Blood Pressure: 109/51 Pulse: 98 Respirations: 23 Pulse Ox (%): 98 - Physical Exam HEENT: Normocephalic Neck: Supple Cardiovascular: Normal pulses Gastrointestinal: Hypoactive (wound VAc in place, ostomy viable and functional, steffanie serosanguineous) Assessment And Plan - Plan foundry tender consult for nutrition, check for residuals wound VAC ABX per ID, large pelvic abscess history
--- NOTE | 2022-09-04 12:18 | P.PN ---
Subjective Date of Service: 09/04/22 Chief Complaint: Respiratory failure agitation on a ventilator, Patient's condition is stable continues to remain unresponsive and open her eyes hemodynamically stable started on low-dose tube feeds Review of Systems is unable to be obtained Physical Examination - Vital Signs Temperature: 98.3 F Blood Pressure: 109/51 Pulse: 98 Respirations: 23 Pulse Ox (%): 98 - Physical Exam General: Unresponsive Respiratory: Clear to auscultation bilaterally Cardiovascular: No edema, Normal S1 S2 Assessment And Plan - Current Problems (Diagnosis) (1) Respiratory failure Current Visit: No Status: Acute Plan: Respiratory failure hemodynamically stable minimally responsive count is now normal try to wean her off from the ventilator and patient is more responsive and awake added on low-dose tube feed vital signs are stable she went into rapid A. fib yesterday during a weaning trial agree with low-dose sedation chest x-ray reviewed interstitial changes endotracheal tube satisfactory Qualifiers: Chronicity: acute on chronic
[2022-09-04] MEDS: AMIODARONE HCL 900 MG in Dextrose 5%-Water 482 ML IV SCH (13:13)
[2022-09-04] MEDS: DAPTOmycin 500 MG in NA CHLORIDE 0.9% 100 ML IVPB SCH (13:29)
--- NOTE | 2022-09-04 14:28 | PN ---
Subjective: The patient is lying in bed on ventilator. Son by the bedside. No new acute event. Objective: Vital Signs: Temperature 98.4, pulse 100, respirations 14, blood pressure 92/45. Lungs: Basal crackles. Heart: S1, S2. Regular. Bowel sounds present. Extremities: Trace edema. Laboratory Data: Shows WBC 15.5, hemoglobin 7.5, platelets are 107. Chemistry shows BUN of 58, crea tinine 0.9, albumin level is 1.1. Assessment And Plan: Respiratory failure, vent dependent. Pneumonitis, status post surgical interve ntion for abdominal abscess and perforation of bowel. The patient's colostomies were working. Leuko cytosis, thrombocytopenia. We will recommend to discontinue vancomycin and start patient on daptomyc in. Continue meropenem. Chronic obstructive pulmonary disease. Sepsis. Continue supportive care and pulmonary hygiene. We will follow the patient as needed. NF/MODL Voice ID: [id number] Report ID: [id number]
[2022-09-04] MEDS: HYDROMORPHONE HCL 1 MG/ML INJ IV PRN ×2 (14:56→19:25)
[2022-09-04] MEDS ORDERED: VITAL AF 1,000 ML BOT RTH SCH (17:00)
[2022-09-04] MEDS ORDERED: AA 5%/D20W/ELECTROLYTES-TPN 2,000 ML, Lipids 20% 250 ML with MULTIVITAMINS INJ 10 ML IV SCH ×3 (17:00)
[2022-09-05] MEDS: HYDROMORPHONE HCL 1 MG/ML INJ IV PRN ×5 (00:09→23:28)
[2022-09-05] MEDS: LORazepam 2 MG/ML VIAL IV PRN ×3 (00:24→21:40)
[2022-09-05 05:20] LABS: Hematocrit 22.7 % (36.0-45.0); MCV 91.1 fL (80-100); MPV 8.5 fL (7.6-11.3); RBC Red Blood Cell Count 2.49 M/uL (3.86-4.86)
[2022-09-05 05:43] LABS: Albumin 1.2 g/dL (3.4-5.0); Bilirubin Total 1.3 mg/dL (0.2-1.0); Magnesium 2.3 mg/dL (1.6-2.4); Phosphorus 2.9 mg/dL (2.5-4.9); Potassium 4.6 mmol/L (3.5-5.1); Protein, Total 4.9 g/dL (6.4-8.2)
[2022-09-05] MEDS: Meropenem 1,000 MG in NA CHLORIDE 0.9% 100 ML IV SCH ×2 (07:25→21:41)
[2022-09-05] MEDS: FAMOTIDINE 20 MG/2 ML VIAL IV SCH ×2 (07:26→21:40)
[2022-09-05] MEDS: ENOXAPARIN 40 MG/0.4 ML SQ SCH (07:26)
--- NOTE | 2022-09-05 07:40 | RAD REPORT ---
EXAM DESCRIPTION: RAD - Chest Single View - 09/05/2022 6:47 am CLINICAL HISTORY: Respiratory failure COMPARISON: Portable 09/04/2022 TECHNIQUE: AP portable chest image was obtained 09/05/2022 6:47 am . FINDINGS: Endotracheal tube remains in good position with the tip mid aortic arch level. Enteric tub e extends below the diaphragm with the tip off the field of view. Left-sided PICC line the unchanged in position. Lung volumes are low. Interstitial and patchy alveolar opacities in the lower lung bowers have not ch anged. Heart size is prominent. cardiomediastinal silhouette is stable. No measurable pleural effusion and no pneumothorax. IMPRESSION: Stable chest as detailed.
[2022-09-05] MEDS ORDERED: propofoL 500 MG/50 ML ML IV SCH (11:00)
--- NOTE | 2022-09-05 12:08 | P.PN ---
Subjective Date of Service: 09/05/22 Chief Complaint: Respiratory failure agitation on a ventilator, Patient's condition is stable still gets very agitated unable to wean off the ventilator and becomes very tachycardic Review of Systems is unable to be obtained Physical Examination - Vital Signs Temperature: 97.7 F Blood Pressure: 136/66 Pulse: 108 Respirations: 27 Pulse Ox (%): 93 - Physical Exam General: Unresponsive Respiratory: Clear to auscultation bilaterally Cardiovascular: No edema, Normal S1 S2 Assessment And Plan - Current Problems (Diagnosis) (1) Respiratory failure Current Visit: No Status: Acute Plan: Respiratory failure unable to wean patient off the ventilator her baseline she required 10 to 12 L of oxygen and prior to her being on a ventilator and gets very agitated anxious becomes very tachycardic goes into A. fib while trying to wean mildly anemic chest x-ray endotracheal tube satisfactory bilateral interstitial changes prognosis very poor Qualifiers: Chronicity: acute on chronic
[2022-09-05] MEDS: DAPTOmycin 500 MG in NA CHLORIDE 0.9% 100 ML IVPB SCH (12:31)
--- NOTE | 2022-09-05 14:01 | P.PN ---
Subjective Date of Service: 09/05/22 Chief Complaint: Respiratory failure agitation on a ventilator, Status post colon resection. Patient is somnolent without sedation on the vent. Blood pressure has been stable. No recorded fever. Physical Examination - Vital Signs Temperature: 97.7 F Blood Pressure: 136/66 Pulse: 108 Respirations: 27 Pulse Ox (%): 93 Assessment And Plan - Plan Physical exam GEN: Alert, oriented, distress due to pain CV: Regular rate and rhythm, no edema Pulm: Nonlabored breathing, bilateral coarse breath sounds. ABD: Soft, nondistended, tenderness in the suprapubic area, worse in the right inguinal area. Neuro: Normal speech, normal affect Problem List acute hypoxemic respiratiory failure Acute on chronic COPD with exacerbation interstitial lung disease, fibrosis h/o Afib, paroxysmal LEOBARDO h/o Epistaxis Hypertension Cardiomyopathy/CHF, diastolic Sepsis/septic shock secondary to sigmoid colon perforation, now s/p colostomy severe protein calorie malnutrition anemia thrombocytopenia acute on chronic COPD exacerbation acute CHF exacerbation, diastolic CT 08/21 - bilateral fibrosis. was improving slowly, then developed bowel perforation Intubated and on mechanical ventilation - since surgery pulm is following; Steroid discontinued due to bowel perforation. Lasix also held. Patient resuscitated with IV fluid for hypotension on 08/26. Patient with baseline respiratory failure. She is difficult to extubate. Per report patient developed rapid atrial fibrillation and tachypnea on spontaneous breathing. Pulm is following; FiO2 requirement improved CXR 09/01 - worsening b/l opacities; repeat stable patient somnolent and not following commands only receiving ativan and dilaudid, minimize doses. she gets very tachypneic and tachycardic when attempting to wean Pulmonary-Dr. Canchola recommending tracheostomy and PEG tube. h/o afib, new diagnosis during last admission; paroxysmal Coreg was held due to prior hypotension, eventually dc'd afib with rvr overnight 08/28-08/29, s/p lopressor x3, digoxin Cardiology following started amio drip 08/29; in sinus rhythm 12/7 AM; continue drip until able to transition to PO Abdominal pain/pelvic abscess/sepsis secondary to perforated diverticulum with abscess1 Dr. Tavares performed laparotomy with bowel resection and colostomy. SALVADOR drains in place was on empiric merrem and vanc - ID changed to daptomycin on 09/01 to cover for VRE; continues on merrem//dapto wound culture grew enterococcus improving continue TPN via PICC dobhoff placed 09/03 started trickle feeds, transition TPN/Tube feeds over next 24hrs stool output noted since 09/01 hgb and platelets were downtrending 1uPRBC ordered 09/01 improved / stable Not on full anticoagulation for A. fib given recurrent drop in hemoglobin. monitor for bleeding, continue Lovenox for DVT prophylaxis anemia acute on chronic, unclear etiology, suspect bone marrow suppression, with some dark bloody output a few days ago in ostomy no other bleeding noted, no blood seen in ostomy 09/04 transfusion as noted above Repeat blood cultures 08/26: No growth to date. Monitor and optimize electrolytes. Code: Full code. Disposition: LTAC
--- NOTE | 2022-09-05 14:28 | PN ---
Date of Progress Note: 08/29/2022 We have followed Ms. Dunbar intermittently because of atrial fibrillation in the setting of pelvic abs cess, colitis, respiratory failure, and hypertension. She does have a history of COPD as well as a h istory of hypertension. She was having paroxysmal atrial fibrillation. She was back in sinus rhythm . After hydration, her blood pressure is improved. She had a normal echo in July . I would continue her antibiotics, Lovenox, give Lasix as needed, hold Aldactone and Coreg. She is in sinus rhythm today. If she goes back into atrial fibrillation, we will consider digoxin and/or amiod arone. We will sign off her case for now. LIGIA/FAZAL Voice ID: [id number] Report ID: [id number]
--- NOTE | 2022-09-05 14:47 | RAD REPORT ---
EXAM DESCRIPTION: CT - Head Brain Wo Cont - 09/05/2022 2:32 pm CLINICAL HISTORY: Altered Mental Status Headache, drowsiness, alteration of awareness. COMPARISON: No comparisons TECHNIQUE: All CT scans are performed using dose optimization technique as appropriate and may inclu de automated exposure control or mA/KV adjustment according to patient size. FINDINGS: No intracranial hemorrhage, hydrocephalus or extra-axial fluid collection.Mild brain atrop hy.No areas of brain edema or evidence of midline shift. Mild bilateral mastoid effusions. The calvarium is intact. IMPRESSION: No acute intracranial abnormality. Bilateral mastoid effusions.
[2022-09-05] MEDS: AMIODARONE HCL 900 MG in Dextrose 5%-Water 482 ML IV SCH (19:10)
[2022-09-06 05:57] LABS: Absolute Lymphocytes (CBC) 1.7 K/uL (0.7-4.9); Hematocrit 23.7 % (36.0-45.0); Lymphocytes % 14.8 % (15.3-44.8); MCV 90.2 fL (80-100); MPV 8.7 fL (7.6-11.3); RBC Red Blood Cell Count 2.62 M/uL (3.86-4.86)
[2022-09-06 06:08] LABS: Magnesium 2.2 mg/dL (1.6-2.4); Phosphorus 2.7 mg/dL (2.5-4.9); Potassium 4.5 mmol/L (3.5-5.1)
[2022-09-06] MEDS: HYDROMORPHONE HCL 1 MG/ML INJ IV PRN ×6 (06:11→23:00)
[2022-09-06] MEDS: FAMOTIDINE 20 MG/2 ML VIAL IV SCH ×2 (07:14→19:54)
[2022-09-06] MEDS: Meropenem 1,000 MG in NA CHLORIDE 0.9% 100 ML IV SCH ×2 (07:15→19:53)
[2022-09-06] MEDS: ENOXAPARIN 40 MG/0.4 ML SQ SCH (07:15)
[2022-09-06 07:22] LABS: Anisocytosis SLIGHT; Blood Morphology Comment NOTED (NOT SEEN); Platelet Estimate ADEQ
--- NOTE | 2022-09-06 08:44 | RAD REPORT ---
EXAM DESCRIPTION: RAD - Chest Single View - 09/06/2022 6:27 am CLINICAL HISTORY: Respiratory failure Chest pain. COMPARISON: Chest Single View dated 09/05/2022; Chest Single View dated 09/04/2022; Abdomen 1 View ( KUB) dated 09/03/2022; Chest Single View dated 09/02/2022 FINDINGS: Portable technique limits examination quality. Tip of the endotracheal tube is above the leonard and at the level of the superior aortic arch. Enteri c tube descends into the upper abdomen. Left-sided PICC line is stable with its tip in the SVC. Bilat eral pulmonary opacities are unchanged since comparative exam. Heart is mildly prominent.
[2022-09-06 11:39] LABS: Specific Gravity 1.018 (1.005-1.030); Transitional Epithelial <5 /HPF (None Seen); Urine Bilirubin NEGATIVE (Negative); Urine Blood 1+ (Negative); Urine Clarity Turbid (Clear); Urine Color Yellow (Yellow); Urine Glucose NEGATIVE (Negative); Urine Mucus Slight /HPF (None Seen); Urine Protein 1+ (Negative); Urine RBC <5 /HPF (None Seen); Urine Urobilinogen Normal (Normal); Urine pH 5.5 (5.0-7.0)
[2022-09-06] MEDS ORDERED: FUROSEMIDE 20 MG/ 2ML VIAL IV ONE (12:04)
--- NOTE | 2022-09-06 12:05 | P.PN ---
Subjective Date of Service: 09/06/22 Chief Complaint: Respiratory failure agitation on a ventilator, Patient is currently stable scheduled for a trach tomorrow is more alert but unresponsive Review of Systems is unable to be obtained Physical Examination - Vital Signs Temperature: 97.3 F Blood Pressure: 161/81 Pulse: 115 Respirations: 24 Pulse Ox (%): 96 - Physical Exam General: Alert Cardiovascular: No edema Gastrointestinal: Normal bowel sounds, Soft and benign Assessment And Plan - Current Problems (Diagnosis) (1) Respiratory failure Current Visit: No Status: Acute Plan: Respiratory failure continues to remain agitated unresponsive although appears to be more alert today agile for a trach today and PEG chemistries reviewed patient is mildly anemic oxygenation satisfactory chest x-ray shows interstitial changes endotracheal tube satisfactory position FiO2 is only 30% 1 dose of Lasix Qualifiers: Chronicity: acute on chronic
[2022-09-06] MEDS ORDERED: propofoL 200 MG/20 ML VIAL IV ONE ×2 (12:06)
--- NOTE | 2022-09-06 12:35 | P.PN ---
Date of Service: 09/05/22 ENT Consultation-- Please see dictated H&P Impression: 1. Acute respiratory failure-- intubated and on ventilator for approximately 10 days. Plan: 1. Recommend tracheostomy. Will set up for 09/07/22. Patient scheduled to follow after elective cases. 2. NPO after midnight. 3. Please send two trach soft collars with velcro with the patient to the OR. Thank you for this most interesting consultation.
[2022-09-06] MEDS: DAPTOmycin 500 MG in NA CHLORIDE 0.9% 100 ML IVPB SCH (12:49)
--- NOTE | 2022-09-06 12:51 | P.PN ---
Subjective Date of Service: 09/06/22 Chief Complaint: Respiratory failure agitation on a ventilator, protein calorie malnutrition Subjective: New changes (Son agreed with PEG tube last night but TFs not stopped last night for procedure today.) Review of Systems General: Weakness, Malaise Physical Examination - Vital Signs Temperature: 97.3 F Blood Pressure: 161/81 Pulse: 115 Respirations: 24 Pulse Ox (%): 96 - Physical Exam General: Other (Intubated / sedated. ) Assessment And Plan - Current Problems (Diagnosis) (1) COPD (chronic obstructive pulmonary disease) Current Visit: Yes Status: Acute (2) Protein calorie malnutrition Current Visit: Yes Status: Acute (3) Dysphagia Current Visit: Yes Status: Acute (4) Pelvic abscess in female Current Visit: Yes Status: Acute (5) Septic shock Current Visit: Yes Status: Acute (6) Respiratory failure Current Visit: No Status: Acute Qualifiers: Chronicity: acute on chronic (7) Altered mental status Current Visit: Yes Status: Acute - Plan REC: 1) hold TFs after midnight for PEG tube 2) EGD with PEG tube 3) hold Lovenox tomorrow
--- NOTE | 2022-09-06 13:05 | P.PN ---
Subjective Date of Service: 09/06/22 Chief Complaint: Respiratory failure agitation on a ventilator, protein calorie malnutrition No major changes from yesterday. She seems more responsive today. No recorded fever. Physical Examination - Vital Signs Temperature: 97.3 F Blood Pressure: 161/81 Pulse: 115 Respirations: 24 Pulse Ox (%): 96 Assessment And Plan - Plan Physical exam GEN: Somnolent on the vent. HEENT: ET tube. NG tube. CV: Regular rate and rhythm, tachycardia no edema Pulm: Bilateral upper airway transmitted sounds, adequate breath sounds bilaterally ABD: Soft, nondistended, left colostomy. Neuro: Somnolent, opens eyes to verbal, moves all extremities spontaneously. Problem List acute hypoxemic respiratiory failure Acute on chronic COPD with exacerbation interstitial lung disease, fibrosis h/o Afib, paroxysmal LEOBARDO h/o Epistaxis Hypertension Cardiomyopathy/CHF, diastolic Sepsis/septic shock secondary to sigmoid colon perforation, now s/p colostomy severe protein calorie malnutrition anemia thrombocytopenia acute on chronic COPD exacerbation acute CHF exacerbation, diastolic CT 08/21 - bilateral fibrosis. was improving slowly, then developed bowel perforation Intubated and on mechanical ventilation - since surgery pulm is following; Steroid discontinued due to bowel perforation. Lasix also held. Patient resuscitated with IV fluid for hypotension on 08/26. Patient with baseline respiratory failure. She is difficult to extubate. Per report patient develops rapid atrial fibrillation and tachypnea on spontaneous breathing. Pulm is following; FiO2 down to 30%. CXR 09/06: No change in bilateral infiltrate. PICC line is in. patient somnolent and not following commands, only receiving intermittent ativan and dilaudid, minimize doses. she gets very tachypneic and tachycardic when attempting to wean Pulmonary-Dr. Canchola recommending tracheostomy and PEG tube. ENT Dr. Yanez consulted for tracheostomy. Dr. Bryant is also following for PEG tube insertion. h/o afib, new diagnosis during last admission; paroxysmal Coreg was held due to prior hypotension, eventually dc'd afib with rvr overnight 08/28-08/29, s/p lopressor x3, digoxin Cardiology following started amio drip 08/29; in sinus rhythm since 12/7 AM; continue drip until able to transition to PO Abdominal pain/pelvic abscess/sepsis secondary to perforated diverticulum with abscess1 Dr. Tavares performed laparotomy with bowel resection and colostomy. SALVADOR drains in place was on empiric merrem and vanc - ID changed to daptomycin on 09/01 to cover for VRE; continues on merrem//dapto wound culture grew enterococcus improving continue TPN via PICC dobhoff placed 09/03. Feeding is currently at goal 60 ml/hr. stool output noted since 09/01 hgb and platelets were downtrending 1uPRBC 09/01 Hemoglobin has been stable around 7. Not on full anticoagulation for A. fib given recurrent drop in hemoglobin. monitor for bleeding, continue Lovenox for DVT prophylaxis anemia acute on chronic, unclear etiology, suspect bone marrow suppression, with some dark bloody output a few days ago in ostomy no other bleeding noted, no blood seen in ostomy since 09/04 Status post 1 unit PRBC transfusion. Repeat blood cultures 08/26: No growth to date. Monitor and optimize electrolytes. Code: Full code. Disposition: LTAC
--- NOTE | 2022-09-06 13:30 | PN ---
Subjective: The patient lying in bed, unresponsive to verbal stimuli. Objective: Vital Signs: Temperature 97, pulse 115, respirations 30, blood pressure 161/81. Current ly on ventilator with FiO2 of 30%. Lungs: Basal crackles. Heart: S1, S2. Regular. Abdomen: Soft, nontender. Bowel sounds present. Extremity: Trace edema. Laboratory Data: Shows WBC 11.6, hemoglobin 7.8, platelets 274. Chemistry shows BUN of 50, creatini ne 1. Assessment And Plan: 1.Respiratory failure, on ventilator. Plan for trach in place. 2.Abdominal abscess, status post surgical intervention. The patient with wound VAC in place. Plan for PEG tube in place. Once the patient is done with this too, we will recommend to transfer the pat ient to long-term acute care. Currently, the patient is on daptomycin and meropenem. 3.Sepsis, leukocytosis, anemia of chronic disease, severe protein-calorie malnourishment. We will c chris to follow. NF/MODL Voice ID: [id number] Report ID: [id number]
[2022-09-06] MEDS: LORazepam 2 MG/ML VIAL IV PRN ×2 (17:57→20:28)
[2022-09-06] MEDS: HYDROMORPHONE HCL 0.5 MG/0.5 ML INJ IV PRN (18:03)
--- NOTE | 2022-09-06 22:16 | CON ---
Date of Consultation: 09/05/2022 Additional Referring Physician: Vipul Rodriguez M.D. Chief Complaint: Shortness of breath. History Of Present Illness: Patient is a 66-year-old female with a known history of presumed COPD, w ho presented to the emergency room and was subsequently admitted for acute respiratory failure. The patient has been intubated on a ventilation machine for approximately 10 days and has been unable to be weaned. These were indications to consult ENT for an elective tracheostomy. Upon arrival to [facility], patient is in no acute distress. She is intubated on the ventilation machine and unable to prov rudy any history. Past Medical History: Chronic allergic rhinitis, gastroesophageal reflux disease, COPD, congestive h eart failure, cardiomyopathy, hypertension. Past Surgical History: section and wrist surgery. Social History: Negative for alcohol, drugs, and positive for caffeine. Review of Systems: Unable to be obtained from the patient. She is sedated on a ventilation machine. Physical Examination: Vital Signs: Stable and the patient is intubated on a vent and appears to be sedated and in no acute distress. Head: Atraumatic and normocephalic. Ears: Deferred. Nose: Moist intranasal mucosa. Midline septum. Oral Cavity: Endotracheal tube intact. Upper and lower lip ecchymosis/bruising. Neck: Supple. Trachea midline. Thyroid cartilage and cricoid cartilage are palpable. Diagnosis: Acute respiratory failure, unable to be weaned from the ventilator. Plan: 1.Recommend elective tracheostomy under sedation, plan is to set up for September 07, 2022 in the ope rati setting to follow the regular elective cases. 2.N.p.o. after midnight. Thank you for this most interesting consultation. ELIZABET/FAZAL Voice ID: [id number] Report ID: [id number]
[2022-09-07] MEDS: AMIODARONE HCL 900 MG in Dextrose 5%-Water 482 ML IV SCH (00:33)
[2022-09-07] MEDS: LORazepam 2 MG/ML VIAL IV PRN ×3 (01:00→19:32)
[2022-09-07] MEDS: HYDROMORPHONE HCL 1 MG/ML INJ IV PRN ×4 (01:51→22:07)
[2022-09-07 05:13] LABS: Absolute Lymphocytes (CBC) 1.8 K/uL (0.7-4.9); Hematocrit 22.4 % (36.0-45.0); Lymphocytes % 20.6 % (15.3-44.8); MCV 90.7 fL (80-100); MPV 8.3 fL (7.6-11.3); RBC Red Blood Cell Count 2.47 M/uL (3.86-4.86)
[2022-09-07 05:30] LABS: Albumin 1.3 g/dL (3.4-5.0); Bilirubin Total 0.9 mg/dL (0.2-1.0); Potassium 4.3 mmol/L (3.5-5.1); Protein, Total 5.3 g/dL (6.4-8.2)
[2022-09-07] MEDS: ENOXAPARIN 40 MG/0.4 ML SQ SCH (07:34)
[2022-09-07] MEDS: FAMOTIDINE 20 MG/2 ML VIAL IV SCH ×2 (07:35→22:07)
[2022-09-07] MEDS: Meropenem 1,000 MG in NA CHLORIDE 0.9% 100 ML IV SCH ×2 (07:35→21:30)
--- NOTE | 2022-09-07 09:43 | P.PN ---
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
[2022-09-07] MEDS: HYDROMORPHONE HCL 0.5 MG/0.5 ML INJ IV PRN (10:13)
--- NOTE | 2022-09-07 12:00 | P.PN ---
Subjective Date of Service: 09/07/22 Chief Complaint: Respiratory failure agitation on a ventilator, perfotated sigmoid diverticu No major changes from yesterday. Attempted spontaneous breathing trial today, patient became restless tachycardic and tachypneic and failed weaning trial again. Physical Examination - Vital Signs Temperature: 97.9 F Blood Pressure: 169/107 Pulse: 113 Respirations: 25 Pulse Ox (%): 94 Assessment And Plan - Plan Physical exam GEN: Somnolent on the vent. HEENT: ET tube. NG tube. CV: Regular rate and rhythm, tachycardia no edema Pulm: Bilateral upper airway transmitted sounds, adequate breath sounds bilaterally ABD: Soft, nondistended, left colostomy. Neuro: Somnolent, opens eyes to verbal, moves all extremities spontaneously. Problem List acute hypoxemic respiratiory failure Acute on chronic COPD with exacerbation interstitial lung disease, fibrosis h/o Afib, paroxysmal LEOBARDO h/o Epistaxis Hypertension Cardiomyopathy/CHF, diastolic Sepsis/septic shock secondary to sigmoid colon perforation, now s/p colostomy severe protein calorie malnutrition anemia thrombocytopenia acute on chronic COPD exacerbation acute CHF exacerbation, diastolic CT 08/21 - bilateral fibrosis. was improving slowly, then developed bowel perforation Intubated and on mechanical ventilation - since surgery pulm is following; Steroid discontinued due to bowel perforation. Lasix also held. Patient resuscitated with IV fluid for hypotension on 08/26. Patient with baseline respiratory failure. She is difficult to extubate. Per report patient develops rapid atrial fibrillation and tachypnea on spontaneous breathing. Pulm is following; FiO2 down to 30%. CXR 09/06: No change in bilateral infiltrate. PICC line is in. patient somnolent and not following commands, only receiving intermittent ativan and dilaudid, minimize doses. she gets very tachypneic and tachycardic when attempting to wean Pulmonary-Dr. Canchola recommending tracheostomy and PEG tube. ENT Dr. Yanez consulted for tracheostomy. Dr. Bryant is also following for PEG tube insertion. Patient scheduled for both procedures today. h/o afib, new diagnosis during last admission; paroxysmal Coreg was held due to prior hypotension, eventually dc'd afib with rvr overnight 08/28-08/29, s/p lopressor x3, digoxin Cardiology following started amio drip 08/29; in sinus rhythm since 12/7 AM; continue drip until able to transition to PO. Will transition to p.o. amiodarone once once PEG tube is inserted. Abdominal pain/pelvic abscess/sepsis secondary to perforated diverticulum with abscess1 Dr. Tavares performed laparotomy with bowel resection and colostomy. SALVADOR drains in place was on empiric merrem and vanc - ID changed to daptomycin on 09/01 to cover for VRE; continues on merrem/daptomycin wound culture grew enterococcus Clinically improving. continue TPN via PICC dobhoff placed 09/03. Feeding is currently at goal 60 ml/hr. stool output noted since 09/01 anemia acute on chronic, unclear etiology, suspect bone marrow suppression, with some dark bloody output a few days ago in ostomy no other bleeding noted, no blood seen in ostomy since 09/04 Status post 1 unit PRBC transfusion. Hemoglobin has been stable around 7. Not on full anticoagulation for A. fib given recurrent drop in hemoglobin. monitor for bleeding, continue Lovenox for DVT prophylaxis Repeat blood cultures 08/26: No growth to date. Monitor and optimize electrolytes. Code: Full code. Disposition: LTAC
[2022-09-07] MEDS: DAPTOmycin 500 MG in NA CHLORIDE 0.9% 100 ML IVPB SCH (12:58)
[2022-09-07] MEDS ORDERED: FENTANYL CITR 100 MCG/2 ML ONE (13:19)
[2022-09-07] MEDS ORDERED: MIDAZOLAM HCL 2 MG/2 ML INJ ONE (13:19)
[2022-09-07] MEDS ORDERED: ROCURONIUM 50 MG/5 ML VIAL IV ONE (13:19)
[2022-09-07] MEDS ORDERED: LIDOCAINE 1.5% W/EPI AMP 5 ML ONE (13:29)
[2022-09-07] MEDS ORDERED: NA CHLORIDE 0.9% 500 ML ONE (13:39)
[2022-09-07] MEDS ORDERED: LIDOCAINE 1% W/EPI 1:100,000 30 ML VIAL ONE (13:59)
[2022-09-07] MEDS ORDERED: NA CHLORIDE 0.9% 250 ML IV ONE (17:19)
[2022-09-08] MEDS: DEXTROSE 10%-WATER 500 ML IV SCH ×3 (03:00→22:45)
[2022-09-08] MEDS: LORazepam 2 MG/ML VIAL IV PRN (03:01)
[2022-09-08] MEDS: HYDROMORPHONE HCL 1 MG/ML INJ IV PRN ×2 (04:13→21:34)
[2022-09-08] MEDS: AMIODARONE HCL 900 MG in Dextrose 5%-Water 482 ML IV SCH (07:50)
[2022-09-08] MEDS: FAMOTIDINE 20 MG/2 ML VIAL IV SCH ×2 (08:31→20:50)
[2022-09-08] MEDS: Meropenem 1,000 MG in NA CHLORIDE 0.9% 100 ML IV SCH ×2 (08:31→20:50)
[2022-09-08] MEDS: ENOXAPARIN 40 MG/0.4 ML SQ SCH (10:15)
--- NOTE | 2022-09-08 11:01 | P.PN ---
Subjective Date of Service: 09/08/22 Chief Complaint: Respiratory failure agitation on a ventilator, perfotated sigmoid diverticu Status post tracheostomy yesterday Patient on the vent with SIMV mode. Physical Examination - Vital Signs Temperature: 98.5 F Blood Pressure: 115/52 Pulse: 88 Respirations: 19 Pulse Ox (%): 98 Assessment And Plan - Plan Physical exam GEN: Somnolent on the vent. HEENT: ET tube. NG tube. CV: Regular rate and rhythm, tachycardia no edema Pulm: Bilateral upper airway transmitted sounds, adequate breath sounds bilaterally ABD: Soft, nondistended, left colostomy. Neuro: Somnolent, opens eyes to verbal, moves all extremities spontaneously. Problem List acute hypoxemic respiratiory failure Acute on chronic COPD with exacerbation interstitial lung disease, fibrosis h/o Afib, paroxysmal LEOBARDO h/o Epistaxis Hypertension Cardiomyopathy/CHF, diastolic Sepsis/septic shock secondary to sigmoid colon perforation, now s/p colostomy severe protein calorie malnutrition anemia thrombocytopenia acute on chronic COPD exacerbation acute CHF exacerbation, diastolic CT 08/21 - bilateral fibrosis. Was intubated and on mechanical ventilation - since surgery. Patient with baseline respiratory failure. She is difficult to extubate. Per report patient develops rapid atrial fibrillation and tachypnea on spontaneous breathing. pulm is following; Steroid discontinued due to bowel perforation. Lasix also held. Patient resuscitated with IV fluid for hypotension on 08/26. Pulm is following; FiO2 down to 30%. CXR 09/06: No change in bilateral infiltrate. PICC line is in. patient somnolent and not following commands, only receiving intermittent ativan and dilaudid, minimize doses. she gets very tachypneic and tachycardic when attempting to wean Pulmonary-Dr. Canchola recommending tracheostomy and PEG tube. ENT Dr. Yanez consulted for tracheostomy. Dr. Bryant is also following for PEG tube insertion. Patient underwent tracheostomy 09/07/2022 Dr. Bryant is planning PEG tube placement on 09/10. h/o afib, new diagnosis during last admission; paroxysmal Coreg was held due to prior hypotension, eventually dc'd afib with rvr overnight on 08/28-08/29, s/p lopressor x3, digoxin Cardiology saw patient. started amio drip 08/29; in sinus rhythm since 12/7 AM; continue drip until able to transition to PO. Will transition to p.o. amiodarone once once PEG tube is inserted. Abdominal pain/pelvic abscess/sepsis secondary to perforated diverticulum with abscess1 Dr. Tavares performed laparotomy with bowel resection and colostomy. SALVADOR drains in place-no significant drainage. was on empiric merrem and vanc - ID changed to daptomycin on 09/01 to cover for VRE; continues on merrem/daptomycin wound culture grew enterococcus Clinically improving. continue TPN via PICC dobhoff placed 09/03. Continue NG tube feeding. stool output noted since 09/01 anemia acute on chronic, unclear etiology, suspect bone marrow suppression, with some dark bloody output a few days ago in ostomy no other bleeding noted, no blood seen in ostomy since 09/04 Status post 1 unit PRBC transfusion. Hemoglobin has been stable around 7. Not on full anticoagulation for A. fib given recurrent drop in hemoglobin. monitor for bleeding, continue Lovenox for DVT prophylaxis Repeat blood cultures 08/26: No growth to date. Monitor and optimize electrolytes. Code: Full code. Disposition: LTAC
[2022-09-08] MEDS: HYDROMORPHONE HCL 0.5 MG/0.5 ML INJ IV PRN ×2 (11:23→17:41)
--- NOTE | 2022-09-08 11:48 | OP ---
Date of Procedure: 09/07/2022 Surgeon: DUKE GOODEN Additional Referring Physician: Vipul Rodriguez M.D. Preoperative Diagnosis: Acute respiratory failure. Postoperative Diagnosis: Acute respiratory failure. Procedure: Elective tracheostomy. Anesthesia: General endotracheal. Anesthesia: Administered. I also infiltrated approximately 6 mL of 1.5% lidocaine with 1:200,000 ep inephrine at the incision site. Estimated Blood Loss: Less than 5 mL. Specimens: None. Findings: Patient had a rather low cricoid, but otherwise normal expected anatomy. Complications: None. Disposition: Stable. The patient tolerated the procedure well. Description Of Procedure: Patient was transferred from the intensive care unit to the operating room by the Department of Anesthesia and the patient was transferred to the operating room table supine, and she was sedated and intubated. I injected approximately 5 mL of 1.5% lidocaine with 1:200,000 ep inephrine at the incision site which was at the border between the inferior edge of the thyroid carti ronan and the cricoid cartilage. Patient was then sterilely prepped and draped. I made an incision at the palpable cricoid cartilage landmark through the epidermis down to the subpl atysmal layer utilizing a #15 blade scalpel and needlepoint electrocautery on the twentieth setting o f coagulation. I divided the platysma with needlepoint electrocautery and continued to dissect down to the median ra phae between the strap muscles. Once that was located, I was able to reflect those back to locate a small thyroid isthmus. I dissected through the thyroid isthmus with needlepoint electrocautery, expo sing the tracheal cartilaginous rings. After instructing Anesthesia to deflate the cuff, I then made an incision between the second and third tracheal ring with a #15 blade scalpel thereby entering the airway. I could easily see the endotracheal cuff, which I had Anesthesia withdrawal to above the le dyan of the incision into the trachea. I widened the tracheal openings that I could slide a #6 Shiley cuffed tracheostomy tube into the opening. It easily inserted into the airway and the obturator was removed and then the trach was connected to the oxygen circuit. We were getting excellent CO2 retur n, as well as, 100% oxygen saturation. I then secured the flanges of the tracheostomy tube to the sk in with 2-0 silk sutures and then I applied a soft trach collar and sutured the collar to itself with 2.0 silk suture, so that it would not loosen. Patient had minimal bleeding. I did not feel it was necessary to place Surgicel into the tracheal opening or into the neck wound opening. Patient was th en transferred back to Department of Anesthesia in stable condition where she was subsequently transf erred back to the intensive care unit in stable condition. No dressing was placed around the trach s ite. We will monitor it and will visit in 24 hours. Patient may need Surgicel and a light dressing at that time. ELIZABET/FAZAL Voice ID: [id number] Report ID: [id number]
--- NOTE | 2022-09-08 12:18 | PN ---
Subjective: Patient is lying in bed, status post trach and PEG tube placement, nonverbal. Objective: Vital Signs: Temperature 98, pulse 88, respirations 19, blood pressure 115/52. Lungs: Basal crackles. Heart: S1, S2. Regular. Abdomen: Soft, nontender. Bowel sounds present. Extremities: Trace edema. Laboratory Data: Shows WBC of 8.5, hemoglobin 7.5, platelets 265. Chemistry shows BUN of 48, creati nine 1. Albumin level of 1.3. Assessment And Plan: Respiratory failure, chronic obstructive pulmonary disease exacerbation, status post abdominal abscess, and sigmoid colonic perforation, colostomy in place. New trach and PEG tube in place. Continue IV antibiotic and supportive care. We will recommend to send patient to [facility] acute care for management of infection and weaning of ventilator. We will follow the patient billy cardenas. NF/MODL Voice ID: [id number] Report ID: [id number]
[2022-09-08] MEDS: DAPTOmycin 500 MG in NA CHLORIDE 0.9% 100 ML IVPB SCH (12:24)
--- NOTE | 2022-09-08 16:04 | PN ---
Date of Progress Note: 09/08/2022 Diagnosis: Ruptured perforated diverticulitis with large intraabdominal abscess. Subjective: From the surgical standpoint, patient is recovering. She had a trach recently placed. Objective: Chest: Clear. Abdomen: Soft and depressible. Intact midline. Wound VAC in place. Colostomy viable and functiona l with gas and stools present. Extremities: Good capillary refill. SALVADOR drain serosanguineous. Laboratory Data: Blood work shows WBC count of 8.0. Plan: From the surgical standpoint is basically work in nutrition. I understand there is plan to st art enteral nutrition with the tube. From the surgical standpoint, at least we have no contraindicat ion for enteral nutrition. Continue wound VAC, and consider LTAC. HM/MODL Voice ID: [id number] Report ID: [id number]
[2022-09-09] MEDS: HYDROMORPHONE HCL 1 MG/ML INJ IV PRN (03:30)
[2022-09-09] MEDS: LORazepam 2 MG/ML VIAL IV PRN ×2 (05:17→20:00)
[2022-09-09] MEDS: DEXTROSE 10%-WATER 500 ML IV SCH ×2 (05:17→17:01)
[2022-09-09 07:28] LABS: Absolute Lymphocytes (CBC) 1.8 K/uL (0.7-4.9); Lymphocytes % 23.7 % (15.3-44.8); MCV 91.5 fL (80-100); RBC Red Blood Cell Count 2.51 M/uL (3.86-4.86)
[2022-09-09 07:42] LABS: Magnesium 2.2 mg/dL (1.6-2.4); Phosphorus 2.9 mg/dL (2.5-4.9); Potassium 3.7 mmol/L (3.5-5.1)
[2022-09-09] MEDS: FAMOTIDINE 20 MG/2 ML VIAL IV SCH ×2 (07:49→20:39)
[2022-09-09] MEDS: Meropenem 1,000 MG in NA CHLORIDE 0.9% 100 ML IV SCH ×2 (07:49→20:39)
[2022-09-09 08:25] LABS: Anisocytosis 2+; Blood Morphology Comment NOTED (NOT SEEN); Platelet Estimate ADEQ; Polychromasia SLIGHT; White Blood Cell Scan OK (OK)
[2022-09-09] MEDS ORDERED: SODIUM CHLORIDE 0.9% 10ML INJ IV PRN (08:29)
[2022-09-09] MEDS: ENOXAPARIN 40 MG/0.4 ML SQ SCH (08:33)
--- NOTE | 2022-09-09 09:15 | RAD REPORT ---
EXAM DESCRIPTION: Saeidt Single View09/09/2022 7:02 am CLINICAL HISTORY: Respiratory failure COMPARISON: September 06, 2022 FINDINGS: Tracheostomy tube in place Feeding tube enters the stomach. The tip is not included in the field of view. PICC line in place Mild worsening in the diffuse bilateral pulmonary opacities. Heart remains enlarged
--- NOTE | 2022-09-09 10:59 | P.PN ---
Subjective Date of Service: 09/09/22 Chief Complaint: Respiratory failure agitation on a ventilator, perfotated sigmoid diverticu Status post tracheostomy 09/07. Patient on the vent with SIMV mode. He has high gastric residual. Gastric content also coffee-ground. Physical Examination - Vital Signs Temperature: 97.3 F Blood Pressure: 121/46 Pulse: 92 Respirations: 20 Pulse Ox (%): 100 Assessment And Plan - Plan Physical exam GEN: Somnolent on the vent. HEENT: NG tube. Neck: Tracheostomy CV: Regular rate and rhythm, tachycardia, no edema Pulm: Bilateral upper airway transmitted sounds, adequate breath sounds bilaterally ABD: Soft, nondistended, left colostomy. Neuro: Somnolent, opens eyes to verbal, moves all extremities spontaneously. Problem List acute hypoxemic respiratiory failure Acute on chronic COPD with exacerbation interstitial lung disease, fibrosis h/o Afib, paroxysmal LEOBARDO h/o Epistaxis Hypertension Cardiomyopathy/CHF, diastolic Sepsis/septic shock secondary to sigmoid colon perforation, now s/p colostomy severe protein calorie malnutrition anemia thrombocytopenia acute on chronic COPD exacerbation acute CHF exacerbation, diastolic CT 08/21 - bilateral fibrosis. on mechanical ventilation - since surgery. Patient with baseline respiratory failure. She was difficult to extubate. Patient developed rapid atrial fibrillation and tachypnea on spontaneous breathing. pulm is following; Steroid discontinued due to bowel perforation. Lasix also held. Patient resuscitated with IV fluid for hypotension on 08/26. CXR 09/06: No change in bilateral infiltrate. PICC line is in. patient somnolent and not following commands, only receiving intermittent ativan and dilaudid, minimize doses. she gets very tachypneic and tachycardic when attempting to wean Pulmonary-Dr. Canchoal recommended tracheostomy and PEG tube. ENT Dr. Yanez consulted for tracheostomy. Dr. Bryant is also following for PEG tube insertion. Patient underwent tracheostomy 09/07/2022 Dr. Bryant is planning PEG tube placement today. Protonix for GI prophylaxis. h/o afib, new diagnosis during last admission; paroxysmal Coreg was held due to prior hypotension, eventually dc'd afib with rvr overnight on 08/28-08/29, s/p lopressor x3, digoxin Cardiology saw patient. started amio drip 08/29; in sinus rhythm since 12/7 AM; continue drip until able to transition to PO. Will transition to p.o. amiodarone once once PEG tube is inserted. Abdominal pain/pelvic abscess/sepsis secondary to perforated diverticulum with abscess1 Dr. Tavares performed laparotomy with bowel resection and colostomy. SALVADOR drains in place-no significant drainage. was on empiric merrem and vanc - ID changed to daptomycin on 09/01 to cover for VRE; continues on merrem/daptomycin wound culture grew enterococcus Clinically improving. continue TPN via PICC dobhoff placed 09/03. Continue NG tube feeding. Patient plan for PEG tube placement today. stool output noted since 09/01 anemia acute on chronic, unclear etiology, suspect bone marrow suppression, with some dark bloody output a few days ago in ostomy no blood seen in ostomy since 09/04. Gastric residual with coffee-ground appearance. Status post 1 unit PRBC transfusion. Hemoglobin has been stable around 7. Not on full anticoagulation for A. fib given recurrent drop in hemoglobin. monitor for bleeding, continue Lovenox for DVT prophylaxis Repeat blood cultures 08/26: No growth to date. Monitor and optimize electrolytes. Code: Full code. Disposition: LTAC
[2022-09-09] MEDS ORDERED: propofoL 200 MG/20 ML VIAL IV ONE (13:38)
[2022-09-09] MEDS: DAPTOmycin 500 MG in NA CHLORIDE 0.9% 100 ML IVPB SCH (13:39)
[2022-09-09] MEDS ORDERED: Phenylephrine HCl 10 MG/ML 1 ML VIAL ONE (13:42)
[2022-09-09] MEDS ORDERED: NA CHLORIDE 0.9% 150 ML IV ONE (13:45)
[2022-09-09] MEDS ORDERED: 0.9 % SODIUM CHLORIDE 80 ML ONE (13:45)
--- NOTE | 2022-09-09 16:21 | OP ---
Date of Procedure: 09/09/2022 Surgeon: Brandon Bryant MD Procedure: Esophagogastroduodenoscopy with PEG tube placement. Indication: Dysphagia with altered mental status. 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 Need for long-term enteral feeding. Informed conse nt obtained from family. Risks, benefits, alternatives were discussed with the family and family dec ided to proceed with EGD with PEG tube placement. Procedure In Detail: Patient was placed in the supine, slightly left lateral decubitus position. En doscope was placed in oropharynx and all way down to the second portion of duodenum. Findings includ ed: 1.Slight hiatal hernia. 2.Moderate gastritis in the pre-pyloric antrum. Procedure intervention was PEG tube placement, elimination of the bowel wall and palpation of the close abdominal wall with indentation into the body of the stomach noted. Patient was preppe d and draped using sterile technique. Then, lidocaine needle injection of the area to place the PEG tube was injected. Needle was seen and then was placed into the body of the stomach. A g uidewire was placed through the into the body of the stomach. Endoscope snare was used to grasp the guidewire, which was brought back up through the scope and brought out and with the scope intact, push PEG tube was placed over the guidewire and pushed into place using a sterile technique. Bumpers were placed on the PEG tube with antibiotic ointment, Betadine, and sterile gauze and fasten ed into position with bumper. PEG tube placement was completed. Picture of PEG tube within the lume n of the stomach and in the distal body was obtained and procedure was completed. Impression: 1.20-Urdu PEG tube placement endoscopically today. 2.Small sliding hiatal hernia. 3.Mild to moderate gastritis in the pre-pyloric antrum. Recommendations: 1.Begin PEG tube feedings in 3 hours. 2.Protonix 40 mg IV daily for pre-pyloric [id number] antral gastritis noted. WS/MODL Voice ID: [id number] Report ID: [id number]
[2022-09-09] MEDS: AMIODARONE HCL 900 MG in Dextrose 5%-Water 482 ML IV SCH (19:35)
[2022-09-09] MEDS: PANTOPRAZOLE 40 MG INJ IVP SCH (20:39)
[2022-09-10] MEDS: DEXTROSE 10%-WATER 500 ML IV SCH ×2 (05:15→15:52)
[2022-09-10 05:27] LABS: Absolute Lymphocytes (CBC) 1.4 K/uL (0.7-4.9); Hematocrit 22.9 % (36.0-45.0); Lymphocytes % 20.1 % (15.3-44.8); MCV 90.1 fL (80-100); RBC Red Blood Cell Count 2.54 M/uL (3.86-4.86)
[2022-09-10 05:40] LABS: Magnesium 2.1 mg/dL (1.6-2.4); Phosphorus 2.5 mg/dL (2.5-4.9); Potassium 3.3 mmol/L (3.5-5.1)
[2022-09-10] MEDS: HYDROMORPHONE HCL 1 MG/ML INJ IV PRN (05:40)
[2022-09-10] MEDS: LORazepam 2 MG/ML VIAL IV PRN ×2 (05:40→22:34)
[2022-09-10] MEDS: KCL 20 MEQ/100 mL IVPB 20 MEQ/100 ML BAG IV SCH ×2 (06:43→07:56)
[2022-09-10] MEDS: ENOXAPARIN 40 MG/0.4 ML SQ SCH (07:56)
[2022-09-10] MEDS: PANTOPRAZOLE 40 MG INJ IVP SCH ×2 (07:56→20:16)
[2022-09-10] MEDS: Meropenem 1,000 MG in NA CHLORIDE 0.9% 100 ML IV SCH ×2 (07:58→20:16)
[2022-09-10] MEDS: FAMOTIDINE 20 MG/2 ML VIAL IV SCH (07:58)
--- NOTE | 2022-09-10 10:14 | RAD REPORT ---
EXAM DESCRIPTION: RAD - Abdomen 1 View (KUB) - 09/10/2022 9:32 am CLINICAL HISTORY: vomiting, increased resdiuals from tube feedings COMPARISON: <Comparisons> FINDINGS: Stomach is decompressed with only a small amount of air within the lumen. Feeding tube rem ains well positioned with the tip in the gastric antrum or duodenal bulb. Small bowel does not appear dilated on plain film. Air is seen within nondilated colon. Small amount of stool is present in the rectosigmoid portion of the colon. Two drain tubes are present in the pelvis. Circular density in the lower left abdomen may be an ostomy site. No free air or pneumatosis. No suspicious calcifications. IMPRESSION: Bowel obstruction is not evident. No free air, pneumatosis or suspicious findings noted.
[2022-09-10] MEDS ORDERED: MINERAL OIL 30 ML UCUP PO ONE (12:00)
--- NOTE | 2022-09-10 12:00 | P.PN ---
Subjective Date of Service: 09/10/22 Chief Complaint: Respiratory failure agitation on a ventilator, perfotated sigmoid diverticu Status post tracheostomy 09/07. Patient is currently on CPAP mode. Nursing staff reported she vomited last night and did not tolerate tube feeding. No fever. Physical Examination - Vital Signs Temperature: 97.6 F Blood Pressure: 109/54 Pulse: 97 Respirations: 17 Pulse Ox (%): 100 Assessment And Plan - Plan Physical exam GEN: Somnolent on the vent. HEENT: NG tube. Neck: Tracheostomy CV: Regular rate and rhythm, tachycardia, no edema Pulm: Bilateral upper airway transmitted sounds, adequate breath sounds bilaterally ABD: Soft, nondistended, left colostomy. Neuro: Somnolent, opens eyes to verbal, moves all extremities spontaneously. Problem List acute hypoxemic respiratiory failure Acute on chronic COPD with exacerbation interstitial lung disease, fibrosis h/o Afib, paroxysmal LEOBARDO h/o Epistaxis Hypertension Cardiomyopathy/CHF, diastolic Sepsis/septic shock secondary to sigmoid colon perforation, now s/p colostomy severe protein calorie malnutrition anemia thrombocytopenia acute on chronic COPD exacerbation acute CHF exacerbation, diastolic CT 08/21 - bilateral fibrosis. on mechanical ventilation - since surgery. Patient with baseline respiratory failure. She was difficult to extubate. Patient developed rapid atrial fibrillation and tachypnea on spontaneous breathing. pulm is following; Steroid discontinued due to bowel perforation. Lasix also held. Patient resuscitated with IV fluid for hypotension on 08/26. CXR 09/06: No change in bilateral infiltrate. PICC line is in. patient somnolent and not following commands, only receiving intermittent ativan and dilaudid, minimize doses. she gets very tachypneic and tachycardic when attempting to wean Pulmonary-Dr. Canchola recommended tracheostomy and PEG tube. ENT Dr. Yanez consulted for tracheostomy. Dr. Bryant is also following for PEG tube insertion. Patient underwent tracheostomy 09/07/2022 Status post PEG tube 09/09 Protonix for GI prophylaxis. h/o afib, new diagnosis during last admission; paroxysmal Coreg was held due to prior hypotension, eventually dc'd afib with rvr overnight on 08/28-08/29, s/p lopressor x3, digoxin Seen by cardiology. started amio drip 08/29; in sinus rhythm since 12/7 AM; continue drip until able to transition to PO. Transition to p.o. amiodarone. Abdominal pain/pelvic abscess/sepsis secondary to perforated diverticulum with abscess1 Dr. Tavares performed laparotomy with bowel resection and colostomy. SALVADOR drains in place-no significant drainage. was on empiric merrem and vanc - ID changed to daptomycin on 09/01 to cover for VRE; continues on merrem/daptomycin wound culture grew enterococcus Clinically improving. continue TPN via PICC dobhoff placed 09/03. Continue NG tube feeding. Patient plan for PEG tube placement today. stool output noted since 09/01 Patient vomited today and did not tolerate tube feeding last night. KUB is unremarkable, no ileus or obstruction. Nursing staff report decreased colostomy output. Will try mineral oil p.o. in case she is constipated.. anemia acute on chronic, unclear etiology, suspect bone marrow suppression, with some dark bloody output a few days ago in ostomy no blood seen in ostomy since 09/04. Gastric residual with coffee-ground appearance. Status post 1 unit PRBC transfusion. Hemoglobin has been stable around 7. Not on full anticoagulation for A. fib given recurrent drop in hemoglobin. monitor for bleeding, continue Lovenox for DVT prophylaxis Repeat blood cultures 08/26: No growth to date. Monitor and optimize electrolytes. Code: Full code. Disposition: LTAC
[2022-09-10] MEDS: ONDANSETRON 4 MG/2 ML VIAL IV PRN (12:58)
[2022-09-10] MEDS: DAPTOmycin 500 MG in NA CHLORIDE 0.9% 100 ML IVPB SCH (12:59)
[2022-09-10] MEDS: HYDROMORPHONE HCL 0.5 MG/0.5 ML INJ IV PRN (14:11)
--- NOTE | 2022-09-10 14:25 | PN ---
Date of Progress Note: 09/08/2022 Subjective: The patient was seen and examined at bedside. The patient appeared to be comfortable an d sedated on the ventilator. There were no issues status post tracheostomy, 09/07/2022. Objective: Neck is supple. Tracheostomy tube #6 Shiley intact with mild mucoid secretions noted at the tracheal stoma. The soft collar was replaced, the patient tolerated well. Diagnosis: Acute respiratory failure, status post tracheostomy tube 09/07/2022 - stable. Recommendations: We will remove trach flange sutures in 5-7 days. KD/MODL Voice ID: [id number] Report ID: [id number]
--- NOTE | 2022-09-10 15:50 | EKG ---
Test Date: 2022-09-09 Test Time: 20:30:53 Mold Dresser: AVA MEASUREMENT RESULTS: Intervals: Rate: 95 DC: 172 QRSD: 72 QT: 356 QTc: 447 [place]: P: 65 DC: 172 QRS: 8 T: 50 INTERPRETIVE STATEMENTS: Normal sinus rhythm Possible Left atrial enlargement Nonspecific T wave abnormality Abnormal ECG Compared to ECG 08/12/2022 12:46:48 T-wave abnormality now present Sinus tachycardia no longer present Myocardial infarct finding no longer present Electronically Signed On 09-10-22 15:49:08 [employer] by Thierry Crenshaw
--- NOTE | 2022-09-10 18:20 | P.PN ---
Subjective Date of Service: 09/10/22 Chief Complaint: Dysphagia, protein-calorie malnutrition, AMS, resp fail / mech vent, b/ pne Subjective: New changes (More alert today. Not tolerating TFs with high residuals. Moderate gastritis in antrum on EGD, on PPI bid and Pepcid.) Review of Systems 10-point ROS is otherwise unremarkable General: Weakness, Malaise Physical Examination - Vital Signs Temperature: 97.0 F Blood Pressure: 140/78 Pulse: 103 Respirations: 21 Pulse Ox (%): 99 - Physical Exam General: Alert, In no apparent distress HEENT: Atraumatic, Normocephalic, PERRLA, EOMI Neck: Supple Respiratory: Normal air movement Cardiovascular: Normal pulses Gastrointestinal: Soft and benign, No tenderness, No rebound, No guarding (obese) Assessment And Plan - Current Problems (Diagnosis) (1) COPD (chronic obstructive pulmonary disease) Current Visit: Yes Status: Acute (2) Protein calorie malnutrition Current Visit: Yes Status: Acute (3) Dysphagia Current Visit: Yes Status: Acute (4) Pelvic abscess in female Current Visit: Yes Status: Acute (5) Septic shock Current Visit: Yes Status: Acute (6) Respiratory failure Current Visit: No Status: Acute Qualifiers: Chronicity: acute on chronic (7) Altered mental status Current Visit: Yes Status: Acute - Plan REC: 1) start Reglan 10 mg IV tid 2) wait 30-60 minutes after 1) start and then start TFs at 10 cc/o and increase by 10 cc/o q 12 hours until 40 cc/o met 3) check residuals
[2022-09-10] MEDS: METOCLOPRAMIDE 10 MG/2mL INJ IV SCH (19:51)
[2022-09-10] MEDS: AMIODARONE HCL 200 MG TAB PO SCH (20:16)
[2022-09-11] MEDS: DEXTROSE 10%-WATER 500 ML IV SCH ×3 (00:45→20:45)
[2022-09-11] MEDS: METOCLOPRAMIDE 10 MG/2mL INJ IV SCH ×3 (02:39→15:58)
[2022-09-11 05:04] LABS: Absolute Lymphocytes (CBC) 1.3 K/uL (0.7-4.9); Hematocrit 22.8 % (36.0-45.0); Lymphocytes % 19.1 % (15.3-44.8); MCV 90.2 fL (80-100); MPV 7.2 fL (7.6-11.3); RBC Red Blood Cell Count 2.53 M/uL (3.86-4.86)
[2022-09-11 05:14] LABS: Albumin 1.3 g/dL (3.4-5.0); Bilirubin Total 0.9 mg/dL (0.2-1.0); Potassium 3.7 mmol/L (3.5-5.1); Protein, Total 5.4 g/dL (6.4-8.2)
[2022-09-11] MEDS: HYDROMORPHONE HCL 0.5 MG/0.5 ML INJ IV PRN ×3 (06:21→15:36)
[2022-09-11] MEDS ORDERED: KCL 20 MEQ/100 mL IVPB 20 MEQ/100 ML BAG IV SCH (07:00)
[2022-09-11] MEDS: PANTOPRAZOLE 40 MG INJ IVP SCH ×2 (09:46→21:56)
[2022-09-11] MEDS: AMIODARONE HCL 200 MG TAB PO SCH ×2 (09:46→21:57)
[2022-09-11] MEDS: ENOXAPARIN 40 MG/0.4 ML SQ SCH (09:49)
[2022-09-11] MEDS: Meropenem 1,000 MG in NA CHLORIDE 0.9% 100 ML IV SCH ×2 (09:49→21:55)
--- NOTE | 2022-09-11 09:54 | P.PN ---
Subjective Date of Service: 09/11/22 Chief Complaint: Dysphagia, protein-calorie malnutrition, AMS, resp fail / mech vent, b/ pne Status post tracheostomy 09/07. Patient is currently on SIMV mode. No vomiting with PEG tube feeding overnight. Tube feeding going at 10ml per hour for now. Patient with increased tracheal secretion, with frequent cough needing frequent suctioning. No fever. She is more awake and obeying commands today. Physical Examination - Vital Signs Temperature: 96.9 F Blood Pressure: 135/77 Pulse: 102 Respirations: 17 Pulse Ox (%): 96 Assessment And Plan - Plan Physical exam GEN: Somnolent on the vent. HEENT: NG tube. Neck: Tracheostomy CV: Regular rate and rhythm, tachycardia, no edema Pulm: Bilateral upper airway transmitted sounds, adequate breath sounds bilaterally ABD: Soft, nondistended, left colostomy. Neuro: Somnolent, opens eyes to verbal, moves all extremities spontaneously. Problem List acute hypoxemic respiratiory failure Acute on chronic COPD with exacerbation interstitial lung disease, fibrosis h/o Afib, paroxysmal LEOBARDO h/o Epistaxis Hypertension Cardiomyopathy/CHF, diastolic Sepsis/septic shock secondary to sigmoid colon perforation, now s/p colostomy severe protein calorie malnutrition anemia thrombocytopenia acute on chronic COPD exacerbation acute CHF exacerbation, diastolic CT 08/21 - bilateral fibrosis. on mechanical ventilation - since surgery. Patient with baseline respiratory failure. She was difficult to extubate. Patient developed rapid atrial fibrillation and tachypnea on spontaneous breathing. pulm is following; Steroid discontinued due to bowel perforation. Lasix also held. Patient resuscitated with IV fluid for hypotension on 08/26. CXR 09/06: No change in bilateral infiltrate. PICC line is in. patient somnolent and not following commands, only receiving intermittent ativan and dilaudid, minimize doses. she gets very tachypneic and tachycardic when attempting to wean Pulmonary-Dr. Canchola recommended tracheostomy and PEG tube. ENT Dr. Yanez consulted for tracheostomy. Dr. Bryant is also following for PEG tube insertion. Patient underwent tracheostomy 09/07/2022 Status post PEG tube 09/09 Protonix for GI prophylaxis. h/o afib, new diagnosis during last admission; paroxysmal Coreg was held due to prior hypotension, eventually dc'd afib with rvr overnight on 08/28-08/29, s/p lopressor x3, digoxin Seen by cardiology. started amio drip 08/29; in sinus rhythm since 08/30 AM; Transitioned to p.o. amiodarone 09/11 Abdominal pain/pelvic abscess/sepsis secondary to perforated diverticulum with abscess1 Dr. Tavares performed laparotomy with bowel resection and colostomy. SALVADOR drains in place-no significant drainage. was on empiric merrem and vanc - ID changed to daptomycin on 09/01 to cover for VRE; continues on merrem/daptomycin wound culture grew enterococcus Clinically improving. dobhoff placed 09/03. stool output noted since 09/01 Status post PEG tube. Patient started on tube feeding which is growing at the very slow rate. continue TPN via PICC until tube feeding rate reaches goal. Patient vomited today and did not tolerate tube feeding last night. KUB is unremarkable, no ileus or obstruction. On IV Reglan per GI. anemia acute on chronic, unclear etiology, suspect bone marrow suppression, with some dark bloody output a few days ago in ostomy no blood seen in ostomy since 09/04. Gastric residual with coffee-ground appearance. Endoscopy during PEG tube revealed gastritis. Status post 1 unit PRBC transfusion. Hemoglobin has been stable around 7. Protonix IV. Not on full anticoagulation for A. fib given recurrent drop in hemoglobin. monitor for bleeding, continue Lovenox for DVT prophylaxis Monitor and optimize electrolytes. Code: Full code. Disposition: LTAC
[2022-09-11] MEDS: DAPTOmycin 500 MG in NA CHLORIDE 0.9% 100 ML IVPB SCH (12:27)
[2022-09-11] MEDS: GLYCOPYRROLATE 0.2 MG/ML SYR IV PRN ×2 (12:34→20:10)
--- NOTE | 2022-09-11 15:22 | PN ---
Subjective: Patient lying in ICU bed 2. Patient opening her eyes. Son by the bedside. As per andrew payne, patient's urine output is being well maintained and she is currently on CPAP making 99% oxygen sats. Patient is able to follow verbal commands. Objective: Vital Signs: Temperature 96.9, pulse 100, respirations 11, blood pressure 112/71. Lungs: Basal crackles. Heart: S1, S2. Regular. Abdomen: Soft. Bowel sounds present. Extremity: No edema. Left arm PICC line in place. Laboratory Data: Shows WBC 6.9, hemoglobin 7.6, platelets 293. BUN is 17, creatinine 0.9. Current Antibiotics: Include daptomycin and meropenem. Assessment And Plan: Sigmoid colon perforation, status post colostomy and abdominal abscess evacuati on. Patient is improving. Respiratory failure, currently on CPAP, doing well at 23% FiO2 with histo ry of chronic obstructive pulmonary disease. Continue IV antibiotic at least 2 to [address] Rep eat [address] scan before finishing antibiotic regimen. Continue weaning off and pulmonary hygiene. Contin ue monitoring for urine output and maintain PICC line. Moisture associated dermatitis of the buttock area. Apply barrier cream. We will follow patient closely. I agree with transferring the patient to long-term acute care. NF/MODL Voice ID: [id number] Report ID: [id number]
--- NOTE | 2022-09-11 16:08 | PN ---
Date of Progress Note: 09/11/2022 Diagnosis: Status post perforated diverticulitis with intraabdominal abscess, status post colectomy, ostomy creation. Subjective: The patient is doing well. Over the last few days, she received a tracheostomy even a P EG tube. From the surgical standpoint, the abdomen still has a wound VAC. Ostomy is viable and func tional. Extremities good capillary refill. SALVADOR drain minimal. Plan: LTAC. We will remove the SALVADOR drains and continue nutrition per dietitian, ambulation as soon a s possible. CHETNA/MODL Voice ID: [id number] Report ID: [id number]
[2022-09-11] MEDS: HYDROMORPHONE HCL 1 MG/ML INJ IV PRN (20:20)
--- NOTE | 2022-09-11 20:25 | P.PN ---
Date of Service: 09/12/22 Subjective: no acute events overnight more awake/alert - opens eyes to verbal stimuli weaned to trach collar this morning ROS: A complete review of systems was unable to be performed due mentation Physical Exam: Gen: on trach collar, fatigued, opens eyes to verbal stimuli HEENT: PEG tube in place, s/p tracheostomy CV: regular rhythm, trace bilateral lower extremity edema Pulm: b/l upper airway sounds, non-labored, on trach collar, 30% FiO2 Abd: soft, non-distended, colostomy in place, functioning Neuro: moves extremities, blinks eyes to verbal stimuli, not following commands PEG in place Ontiveros in place vitals reviewed Problem List acute hypoxemic respiratory failure Acute on chronic COPD with exacerbation interstitial lung disease, fibrosis h/o Afib, paroxysmal LEOBARDO h/o Epistaxis Hypertension Cardiomyopathy/CHF, diastolic Sepsis/septic shock secondary to sigmoid colon perforation, now s/p colostomy severe protein calorie malnutrition anemia thrombocytopenia acute on chronic COPD exacerbation acute CHF exacerbation, diastolic CT 08/21 - bilateral fibrosis. required on mechanical ventilation since surgery. s/p tracheostomy 09/07/22 Patient with baseline respiratory failure. She was difficult to extubate. Patient developed rapid atrial fibrillation and tachypnea on spontaneous breathing. pulm is following; Steroids and lasix held since bowel perforation. patient somnolent and not following commands, only receiving intermittent ativan and dilaudid, minimize doses. she gets very tachypneic and tachycardic when attempting to wean Pulmonary-Dr. Canchola recommended tracheostomy and PEG tube. s/p tracheostomy 09/07/22 s/p PEG 09/09/22 Protonix for GI prophylaxis. weaned to trach collar h/o afib, new diagnosis during last admission; paroxysmal Coreg was held due to prior hypotension, eventually dc'd afib with rvr overnight on 08/28-08/29, s/p lopressor x3, digoxin Seen by cardiology. started amio drip 08/29; in sinus rhythm since 12/7 AM with intermittent runs of afib - associated with weaning vent; Transitioned to p.o. amiodarone 09/11 Abdominal pain/pelvic abscess/sepsis secondary to perforated diverticulum with abscess1 Dr. Tavares performed laparotomy with bowel resection and colostomy. SALVADOR drains in place-no significant drainage. was on empiric merrem and vanc - ID changed to daptomycin on 09/01 to cover for VRE; continues on merrem/daptomycin wound culture grew enterococcus Clinically improving. dobhoff placed 09/03. stool output noted since 09/01. now s/p PEG 09/09 tube feeds as tolerated KUB is unremarkable, no ileus or obstruction. On IV Reglan per GI. anemia acute on chronic, unclear etiology, suspect bone marrow suppression, with some dark bloody output a few days ago in ostomy no blood seen in ostomy since 09/04. Gastric residual with coffee-ground appearance. Endoscopy during PEG tube revealed gastritis. s/p 1 unit PRBC transfusion. Hemoglobin has been stable around 7. Protonix IV. Not on full anticoagulation for A. fib given recurrent drop in hemoglobin. monitor for bleeding, continue Lovenox for DVT prophylaxis Monitor and optimize electrolytes. VTE: lovenox Code: Full Disposition: LTAC, awaiting insurance approval Time Spent Managing Pts Care (In Minutes): 35
[2022-09-11] MEDS: LORazepam 2 MG/ML VIAL IV PRN (21:56)
[2022-09-12] MEDS: METOCLOPRAMIDE 10 MG/2mL INJ IV SCH ×3 (00:31→16:23)
[2022-09-12] MEDS: DEXTROSE 10%-WATER 500 ML IV SCH ×3 (00:47→23:58)
[2022-09-12] MEDS: HYDROMORPHONE HCL 1 MG/ML INJ IV PRN ×5 (02:36→23:59)
[2022-09-12 05:24] LABS: Absolute Lymphocytes (CBC) 1.5 K/uL (0.7-4.9); Hematocrit 24.5 % (36.0-45.0); Lymphocytes % 17.2 % (15.3-44.8); MCV 90.2 fL (80-100); RBC Red Blood Cell Count 2.72 M/uL (3.86-4.86)
[2022-09-12 05:37] LABS: Albumin 1.4 g/dL (3.4-5.0); Bilirubin Total 0.7 mg/dL (0.2-1.0); Phosphorus 2.8 mg/dL (2.5-4.9); Protein, Total 5.4 g/dL (6.4-8.2)
[2022-09-12] MEDS: GLYCOPYRROLATE 0.2 MG/ML SYR IV PRN ×2 (06:45→13:48)
[2022-09-12] MEDS: ENOXAPARIN 40 MG/0.4 ML SQ SCH (08:54)
[2022-09-12] MEDS: Meropenem 1,000 MG in NA CHLORIDE 0.9% 100 ML IV SCH ×2 (08:55→20:11)
[2022-09-12] MEDS: AMIODARONE HCL 200 MG TAB PO SCH ×2 (08:55→20:10)
[2022-09-12] MEDS: PANTOPRAZOLE 40 MG INJ IVP SCH ×2 (08:55→20:11)
[2022-09-12] MEDS ORDERED: LEVALBUTEROL 1.25 MG/3 ML NEB NEB PRN (09:03)
[2022-09-12] MEDS: DAPTOmycin 500 MG in NA CHLORIDE 0.9% 100 ML IVPB SCH (11:54)
[2022-09-12] MEDS: HYDROMORPHONE HCL 0.5 MG/0.5 ML INJ IV PRN (13:52)
--- NOTE | 2022-09-12 14:10 | P.PN ---
Subjective Date of Service: 09/12/22 Chief Complaint: Dysphagia, protein-calorie malnutrition, AMS, resp fail / mech vent, b/ pne Subjective: Tolerating diet, New changes (Decrease output from colostomy) Patient laying in ICU unresponsive no new acute event in last 24 hours Physical Examination - Vital Signs Temperature: 98 F Blood Pressure: 106/59 Pulse: 113 Respirations: 24 Pulse Ox (%): 96 - Physical Exam General: Alert, In no apparent distress HEENT: Atraumatic, Normocephalic Neck: Supple, JVD not distended Respiratory: Normal air movement, Crackles/rales Cardiovascular: Normal S1 S2 Gastrointestinal: No tenderness, No rebound, No guarding, Distended (Mild) Musculoskeletal: No swelling, No contractures Assessment And Plan - Plan Respiratory failure currently on ventilator and unresponsive Pelvic abscess s/p I&D Anemia of chronic disease Severe protein calorie malnourishment Continue daptomycin and meropenem Obtain CT abdomen if th output remains low
[2022-09-13] MEDS: METOCLOPRAMIDE 10 MG/2mL INJ IV SCH ×3 (02:01→16:29)
[2022-09-13 05:02] LABS: Absolute Lymphocytes (CBC) 2.1 K/uL (0.7-4.9); Lymphocytes % 19.7 % (15.3-44.8); MCV 89.6 fL (80-100); MPV 7.1 fL (7.6-11.3); RBC Red Blood Cell Count 2.56 M/uL (3.86-4.86)
[2022-09-13 05:19] LABS: Albumin 1.3 g/dL (3.4-5.0); Bilirubin Total 0.7 mg/dL (0.2-1.0); Potassium 3.6 mmol/L (3.5-5.1); Protein, Total 5.3 g/dL (6.4-8.2)
[2022-09-13 05:27] LABS: Blood Morphology Comment NOT SEEN (NOT SEEN); Platelet Estimate ADEQ
[2022-09-13] MEDS: HYDROMORPHONE HCL 1 MG/ML INJ IV PRN ×4 (06:15→23:00)
--- NOTE | 2022-09-13 07:08 | P.PN ---
Date of Service: 09/13/22 Subjective: decreased output since change to PEG tube last night nurse reported some change in ostomy output patient tolerated trach collar for a few hours, then back on vent agitated this morning intermittently following basic commands ROS: A complete review of systems was unable to be performed due mentation Physical Exam: Gen: fatigued, opens eyes to verbal stimuli, intermittently follows commands HEENT: tracheostomy, sclera anicteric, normal conjunctiva CV: sinus tachycardia, trace bilateral lower extremity edema Pulm: non-labored, on vent, s/p tracheostomy Abd: soft, non-distended, colostomy in place, functioning with small amount of light brownish output Neuro: moves extremities, blinks eyes to verbal stimuli, not following commands consistently PEG in place Ontiveros in place vitals reviewed Problem List acute hypoxemic respiratory failure Acute on chronic COPD with exacerbation interstitial lung disease, fibrosis h/o Afib, paroxysmal LEOBARDO h/o Epistaxis Hypertension Cardiomyopathy/CHF, diastolic Sepsis/septic shock secondary to sigmoid colon perforation, now s/p colostomy severe protein calorie malnutrition anemia thrombocytopenia acute on chronic COPD exacerbation acute CHF exacerbation, diastolic CT 08/21 - bilateral fibrosis. required mechanical ventilation since surgery. s/p tracheostomy 09/07/22 Patient with baseline respiratory failure. She was difficult to extubate. Patient developed rapid atrial fibrillation and tachypnea on spontaneous breathing. pulm is following; Steroids and lasix held since bowel perforation. patient somnolent and not following commands, only receiving intermittent ativan and dilaudid, minimize doses. she gets very tachypneic and tachycardic when attempting to wean Pulmonary-Dr. Canchola recommended tracheostomy and PEG tube. s/p tracheostomy 09/07/22 s/p PEG 09/09/22 Protonix for GI prophylaxis. weaned to trach collar intermittently on 09/12, continue to wean as tolerated h/o afib, new diagnosis during last admission; paroxysmal Coreg was held due to prior hypotension, eventually dc'd afib with rvr overnight on 08/28-08/29, s/p lopressor x3, digoxin Seen by cardiology. started amio drip 08/29; in sinus rhythm since 12/7 AM with intermittent runs of afib - associated with weaning vent; Transitioned to p.o. amiodarone 09/11 continue digoxin Abdominal pain/pelvic abscess/sepsis secondary to perforated diverticulum with abscess1 Dr. Tavares performed laparotomy with bowel resection and colostomy. SALVADOR drains in place-no significant drainage. was on empiric merrem and vanc - ID changed to daptomycin on 09/01 to cover for VRE; continues on merrem/daptomycin wound culture grew enterococcus Clinically improving. dobhoff placed 09/03. stool output noted since 09/01. now s/p PEG 09/09 tube feeds as tolerated On IV Reglan per GI. CT 09/13 - ordered due to decreased ostomy output and chance in color no abscess, no obstruction review of prior imaging - dobhoff was likely post-pyloric, and patient now has PEG tube, which likely accounts for some of the difference in stool output tube feeds restarted 09/13 anemia acute on chronic, unclear etiology, suspect bone marrow suppression, with some dark bloody output last week in ostomy no blood seen in ostomy since 09/04. Gastric residual with coffee-ground appearance. Endoscopy during PEG tube revealed gastritis. s/p 1 unit PRBC transfusion. Hemoglobin has been stable around 7. continue Protonix Not on full anticoagulation for A. fib given recurrent drop in hemoglobin. monitor for bleeding, continue Lovenox for DVT prophylaxis thrombocytopenia improved Monitor and optimize electrolytes. VTE: lovenox Code: Full Disposition: LTAC, awaiting insurance approval Time Spent Managing Pts Care (In Minutes): 35
[2022-09-13] MEDS: ENOXAPARIN 40 MG/0.4 ML SQ SCH (07:16)
[2022-09-13] MEDS: AMIODARONE HCL 200 MG TAB PO SCH ×2 (07:17→20:22)
[2022-09-13] MEDS: LORazepam 2 MG/ML VIAL IV PRN ×2 (07:17→21:15)
[2022-09-13] MEDS: PANTOPRAZOLE 40 MG INJ IVP SCH ×2 (07:17→20:25)
[2022-09-13] MEDS: Meropenem 1,000 MG in NA CHLORIDE 0.9% 100 ML IV SCH ×2 (07:18→20:23)
[2022-09-13] MEDS: HYDROMORPHONE HCL 0.5 MG/0.5 ML INJ IV PRN ×2 (07:46→13:27)
--- NOTE | 2022-09-13 08:47 | RAD REPORT ---
EXAM DESCRIPTION: CTAbdomen Pelvis W Contrast - 09/13/2022 8:10 am CLINICAL HISTORY: Abdominal pain. change in appearance of colostomy drainage COMPARISON: Abdomen Pelvis Wo Contrast dated 08/26/2022 TECHNIQUE: Biphasic CT imaging of the abdomen and pelvis was performed with 100 ml non-ionic IV cont rast. All CT scans are performed using dose optimization technique as appropriate and may include automated exposure control or mA/KV adjustment according to patient size. FINDINGS: Moderate opacities in both lower lobes with small pleural effusions may represent atelecta sis or developing infiltrate.Gastrostomy tube is noted. Mild gallbladder distention. No liver mass seen. The spleen, pancreas, adrenal glands and kidneys are within normal limits. Benign left renal cyst is present. Postsurgical changes are present with a drainage catheter is in place in the pelvis. No abscess or fr ee air. Left lower quadrant colostomy is present. Midline ventral surgical changes are present. No in tra-abdominal or intrapelvic abscess collection evident. No evidence of significant lymphadenopathy. No suspicious bony findings. IMPRESSION: No intra-abdominal abscess, significant free fluid collections or free air. No bowel obs truction. Surgical drainage catheters are in place in the pelvis and left lower quadrant of the abdomen. Left l ower quadrant ostomy is present. Bilateral lower lobe pulmonary opacities with small amounts of pleural fluid probably represent atele ctasis or infiltrate/pneumonia.
--- NOTE | 2022-09-13 11:59 | P.PN ---
Subjective Date of Service: 09/13/22 Chief Complaint: Dysphagia, protein-calorie malnutrition, AMS, resp fail / mech vent, b/ pne Subjective: No new changes, Tolerating diet Patient laying in ICU unresponsive no new acute event in last 24 hours Physical Examination - Vital Signs Temperature: 97.3 F Blood Pressure: 132/68 Pulse: 110 Respirations: 24 Pulse Ox (%): 94 - Physical Exam General: In no apparent distress, Cachectic HEENT: Atraumatic, Normocephalic Neck: Supple, JVD not distended Respiratory: Diminished, Crackles/rales Cardiovascular: No edema, Regular rate/rhythm Gastrointestinal: Normal bowel sounds, Soft and benign, Non-distended Musculoskeletal: No contractures, No erythema, No tenderness Integumentary: No tenderness/swelling, No warmth, Skin breakdown Neurological: Abnormal strength Lymphatics: No axilla or inguinal lymphadenopathy Urinary: Ontiveros catheter - Studies Laboratory Last Values WBC 19.00 K/uL (4.3-10.9) H 08/12/22 12:43 RBC 4.12 M/uL (3.86-4.86) 08/12/22 12:43 Hgb 12.4 g/dL (12.0-15.0) 08/12/22 12:43 Hct 38.0 % (36.0-45.0) 08/12/22 12:43 MCV 92.2 fL (80-100) 08/12/22 12:43 MCH 30.0 pg (27.0-35.0) 08/12/22 12:43 MCHC 32.5 g/dL (32.0-36.0) 08/12/22 12:43 RDW 14.7 % (12.1-15.2) 08/12/22 12:43 Plt Count 360 K/uL (152-406) 08/12/22 12:43 MPV 6.9 fL (7.6-11.3) L 08/12/22 12:43 Neutrophils % 81.6 % (41.7-73.7) H 08/12/22 12:43 Lymphocytes % 10.3 % (15.3-44.8) L 08/12/22 12:43 Monocytes % 7.6 % (3.3-12.3) 08/12/22 12:43 Eosinophils % 0.1 % (0-4.4) 08/12/22 12:43 Basophils % 0.4 % (0-1.3) 08/12/22 12:43 Absolute Neutrophils 15.5 K/uL (1.8-8.0) H 08/12/22 12:43 Absolute Lymphocytes 2.0 K/uL (0.7-4.9) 08/12/22 12:43 Absolute Monocytes 1.4 K/uL (0.1-1.3) H 08/12/22 12:43 Absolute Eosinophils 0.0 K/uL (0-0.5) 08/12/22 12:43 Absolute Basophils 0.1 K/uL (0-0.5) 08/12/22 12:43 PT 16.8 SECONDS (9.5-12.5) H 08/12/22 12:43 INR 1.53 08/12/22 12:43 APTT 29.1 SECONDS (24.3-36.9) 08/12/22 12:43 D-Dimer 6432 FEUng/mL (<500) H* 08/12/22 12:43 pH 7.33 (7.35-7.45) L 08/12/22 12:50 pCO2 39.0 mmHG (35-45) 08/12/22 12:50 pO2 21.0 mmHG (75-100) L 08/12/22 12:50 HCO3 20.0 mmol/L (22-28) L 08/12/22 12:50 Base Excess -4.8 mmol/L 08/12/22 12:50 Oxyhemoglobin 20.1 % (94-97) L 08/12/22 12:50 ABG O2 Sat (Measured) 20.7 % (92-98.5) L 08/12/22 12:50 ABG Carboxyhemoglobin 1.6 % (0-1.5) H 08/12/22 12:50 ABG Methemoglobin 1.1 % (0-1.5) 08/12/22 12:50 Other Total Hgb 12.2 g/dl (12-18) 08/12/22 12:50 Inspired O2 50.0 % 08/12/22 12:50 Sodium 135 mmol/L (136-145) L 08/12/22 12:43 Potassium 4.3 mmol/L (3.5-5.1) 08/12/22 12:43 Chloride 101 mmol/L (98-107) 08/12/22 12:43 Carbon Dioxide 19 mmol/L (21-32) L 08/12/22 12:43 Anion Gap 19.3 mEq/L (5.0-15.0) H 08/12/22 12:43 BUN 19 mg/dL (7-18) H 08/12/22 12:43 Creatinine 1.42 mg/dL (0.55-1.3) H 08/12/22 12:43 Est GFR (CKD-EPI) 41 ml/min (=/>90) L 08/12/22 12:43 Glucose 147 mg/dL (74-106) H 08/12/22 12:43 Lactic Acid 1.7 mmol/L (0.4-2.0) 08/12/22 14:50 Calcium 8.7 mg/dL (8.5-10.1) 08/12/22 12:43 Magnesium 2.1 mg/dL (1.8-2.4) 08/12/22 12:43 Total Bilirubin 1.4 mg/dL (0.2-1.0) H 08/12/22 12:43 Direct Bilirubin 0.5 mg/dL (0-0.2) H 08/12/22 12:43 AST 25 U/L (15-37) 08/12/22 12:43 ALT 16 U/L (12-78) 08/12/22 12:43 Alkaline Phosphatase 94 U/L (45-117) 08/12/22 12:43 Creatine Kinase 36 U/L (26-192) 08/12/22 12:43 CK-MB (CK-2) 1.5 ng/mL (1.0-3.6) 08/12/22 12:43 Troponin I High Sens 119.6 pg/mL (<58.9) H* 08/12/22 12:43 NT-Pro-B Natriuret Pep 9288 pg/mL (<125) H 08/12/22 12:43 Serum Total Protein 6.6 g/dL (6.4-8.2) 08/12/22 12:43 Albumin 2.0 g/dL (3.4-5.0) L 08/12/22 12:43 Globulin 4.6 g/dL (2.3-3.5) H 08/12/22 12:43 Albumin/Globulin Ratio 0.4 (1.1-1.8) L 08/12/22 12:43 Influenza Type A RNA Negative (NEGATIVE) 08/12/22 15:10 Influenza Type B RNA Negative (NEGATIVE) 08/12/22 15:10 SARS-CoV-2 RNA (RT-PCR) Negative (NEGATIVE) 08/12/22 15:10 Assessment And Plan - Plan Respiratory failure currently on ventilator and unresponsive Pelvic abscess s/p I&D Anemia of chronic disease Severe protein calorie malnourishment Continue daptomycin and meropenem CT abdomen showed dot infilterate no obstruction or abscess
--- NOTE | 2022-09-13 13:02 | RAD REPORT ---
[facility] CLINICAL HISTORY: Hypoxia COMPARISON: September 06, 2022 FINDINGS: No significant change in the [id number] bilateral pulmonary opacities. Heart remains enlarged. PICC line in place. Tracheostomy tube in good position.
[2022-09-13] MEDS: DAPTOmycin 500 MG in NA CHLORIDE 0.9% 100 ML IVPB SCH (13:06)
--- NOTE | 2022-09-13 18:44 | PN ---
Subjective: The patient has a history of perforated diverticulitis with abdominal abscess, status po st emergent laparotomy with bowel resection and an end-colostomy. Objective: Chest: Clear. Abdomen: Soft and depressible. A wound VAC in place. Ostomy viable and functional. SALVADOR serosanguin eous. CAT scan done today shows no intraabdominal abscess, no bowel obstruction. Plan: We are going to remove the SALVDAOR drain that was done by me, intact . Followup recommendation from LTAC. Continue wound VAC. Ambulation when possible. DVT and GI prophy laxis. Nutrition may be restarted. CHETNA/MODL Voice ID: [id number] Report ID: [id number]
[2022-09-14] MEDS: LORazepam 2 MG/ML VIAL IV PRN ×2 (00:20→05:46)
[2022-09-14] MEDS: METOCLOPRAMIDE 10 MG/2mL INJ IV SCH ×3 (01:45→16:08)
[2022-09-14] MEDS: HYDROMORPHONE HCL 1 MG/ML INJ IV PRN ×2 (02:15→21:12)
[2022-09-14 05:11] LABS: Absolute Lymphocytes (CBC) 1.7 K/uL (0.7-4.9); Hematocrit 22.7 % (36.0-45.0); Lymphocytes % 16.9 % (15.3-44.8); MCV 89.5 fL (80-100); MPV 6.8 fL (7.6-11.3); RBC Red Blood Cell Count 2.53 M/uL (3.86-4.86)
[2022-09-14 05:34] LABS: Albumin 1.3 g/dL (3.4-5.0); Bilirubin Total 0.7 mg/dL (0.2-1.0); Potassium 3.9 mmol/L (3.5-5.1); Protein, Total 5.3 g/dL (6.4-8.2)
--- NOTE | 2022-09-14 06:08 | P.PN ---
Date of Service: 09/14/22 Subjective: intermittent agitation, given ativan/dilaudid no acute events overnight tolerated tube feeds, minimal residuals, no significant output from ostomy yet ROS: A complete review of systems was unable to be performed due mentation Physical Exam: Gen: fatigued, opens eyes to verbal stimuli, intermittently follows commands HEENT: tracheostomy, sclera anicteric, normal conjunctiva CV: sinus tachycardia, trace bilateral lower extremity edema Pulm: non-labored, on vent, s/p tracheostomy Abd: soft, non-distended, colostomy in place, small amount of stool output Neuro: moves extremities, blinks eyes to verbal stimuli, not following commands consistently; generalized weakness PEG in place Ontiveros in place vitals reviewed Problem List acute hypoxemic respiratory failure secondary to COPD exacerbation Acute on chronic COPD with exacerbation interstitial lung disease, fibrosis h/o Afib, paroxysmal LEOBARDO h/o Epistaxis Hypertension Cardiomyopathy/CHF, diastolic Sepsis/septic shock secondary to sigmoid colon perforation, now s/p colostomy severe protein calorie malnutrition anemia thrombocytopenia acute on chronic COPD exacerbation acute CHF exacerbation, diastolic CT 08/21 - bilateral fibrosis. required mechanical ventilation since surgery. s/p tracheostomy 09/07/22 Patient with baseline respiratory failure. She was difficult to extubate. Patient developed rapid atrial fibrillation and tachypnea on spontaneous breathing. pulm is following; Steroids and lasix held since bowel perforation. patient somnolent and not following commands, only receiving intermittent ativan and dilaudid, minimize doses. she gets very tachypneic and tachycardic when attempting to wean Pulmonary-Dr. Canchola recommended tracheostomy and PEG tube. s/p tracheostomy 09/07/22 s/p PEG 09/09/22 Protonix for GI prophylaxis. weaned to trach collar intermittently on 09/12, continue to wean as tolerated difficulty secondary to agitation, requiring ativan/dilaudid, otherwise will pull at trach / lines at times minimize medications that could contribute to her mentation / encephalopathy h/o afib, new diagnosis during last admission; paroxysmal Coreg was held due to prior hypotension, eventually dc'd afib with rvr overnight on 08/28-08/29, s/p lopressor x3, digoxin Seen by cardiology. started amio drip 08/29; in sinus rhythm since 12/7 AM with intermittent runs of afib - associated with weaning vent; Transitioned to p.o. amiodarone 09/11 continue digoxin Abdominal pain/pelvic abscess/sepsis secondary to perforated diverticulum with abscess1 Dr. Tavares performed laparotomy with bowel resection and colostomy. SALVADOR drains in place-no significant drainage. was on empiric merrem and vanc - ID changed to daptomycin on 09/01 to cover for VRE; continues on merrem/daptomycin wound culture grew enterococcus dobhoff placed 09/03. stool output noted since 09/01. now s/p PEG 09/09 tube feeds as tolerated On IV Reglan per GI. CT 09/13 - ordered due to decreased ostomy output and chance in color no abscess, no obstruction review of prior imaging - dobhoff was likely post-pyloric, and patient now has PEG tube, which likely accounts for some of the difference in stool output tube feeds restarted 09/13 anemia acute on chronic, unclear etiology, suspect bone marrow suppression / lab draws, with some dark bloody output last week in ostomy no blood seen in ostomy since 09/04. Gastric residual with coffee-ground appearance. Endoscopy during PEG tube revealed gastritis. s/p 1 unit PRBC transfusion. Hemoglobin has been stable around 7. continue Protonix Not on full anticoagulation for A. fib given recurrent drop in hemoglobin. monitor for bleeding, continue Lovenox for DVT prophylaxis thrombocytopenia improved Monitor and optimize electrolytes. VTE: lovenox Code: Full Disposition: LTAC, awaiting insurance approval Time Spent Managing Pts Care (In Minutes): 25
[2022-09-14] MEDS: Meropenem 1,000 MG in NA CHLORIDE 0.9% 100 ML IV SCH ×2 (07:42→21:11)
[2022-09-14] MEDS: PANTOPRAZOLE 40 MG INJ IVP SCH ×2 (07:42→21:12)
[2022-09-14] MEDS: ENOXAPARIN 40 MG/0.4 ML SQ SCH (07:43)
[2022-09-14] MEDS: AMIODARONE HCL 200 MG TAB PO SCH ×2 (07:43→21:12)
[2022-09-14] MEDS: GLYCOPYRROLATE 0.2 MG/ML SYR IV PRN ×2 (09:40→21:12)
[2022-09-14] MEDS: DAPTOmycin 500 MG in NA CHLORIDE 0.9% 100 ML IVPB SCH (13:30)
[2022-09-14] MEDS: HYDROMORPHONE HCL 0.5 MG/0.5 ML INJ IV PRN ×2 (14:04→17:26)
--- NOTE | 2022-09-14 14:11 | P.PN ---
Subjective Date of Service: 09/14/22 Chief Complaint: Respiratory failure s/p trach Patient is improving more alert responsive has a trach on ertapenem and daptomycin has lower extremity edema thick secretions Review of Systems is unable to be obtained Physical Examination - Vital Signs Temperature: 97.5 F Blood Pressure: 105/49 Pulse: 107 Respirations: 21 Pulse Ox (%): 96 - Physical Exam General: Alert, Cooperative Respiratory: Clear to auscultation bilaterally Cardiovascular: Regular rate/rhythm, Normal S1 S2, Edema Assessment And Plan - Current Problems (Diagnosis) (1) Respiratory failure Current Visit: No Status: Acute Plan: Patient is doing better on a trach has thick secretions check sputum cultures so has lower extremity edema generalized edema very low-dose spironolactone still on meropenem and daptomycin chemistries reviewed white count is now normal mildly anemic ordered some iron studies she is probably iron deficient from repeated blood draws she may need an iron transfusion oxygenation vital signs satisfactory she does have a trach collar plan to alternate trach collar with to support ventilation continue with bedside physical therapy patient is on a 30% FiO2 with 98% saturation patient is steadily improving Qualifiers: Chronicity: acute on chronic
[2022-09-14] MEDS ORDERED: FUROSEMIDE 20 MG/ 2ML VIAL IV ONE (14:15)
[2022-09-14] MEDS: SPIRONOLACTONE 25 MG TABLET PO SCH (14:52)
[2022-09-14 17:02] LABS: Ferritin 776.7 ng/mL (8-388)
[2022-09-15] MEDS: METOCLOPRAMIDE 10 MG/2mL INJ IV SCH ×2 (00:55→08:36)
[2022-09-15] MEDS: HYDROMORPHONE HCL 1 MG/ML INJ IV PRN ×2 (00:55→19:02)
[2022-09-15 05:25] LABS: Hematocrit 21.7 % (36.0-45.0); MCV 88.4 fL (80-100); MPV 6.9 fL (7.6-11.3); RBC Red Blood Cell Count 2.45 M/uL (3.86-4.86)
[2022-09-15 05:37] LABS: Magnesium 1.7 mg/dL (1.6-2.4); Phosphorus 2.5 mg/dL (2.5-4.9); Potassium 3.6 mmol/L (3.5-5.1)
[2022-09-15] MEDS ORDERED: MAGNESIUM SULFATE 1 gm IVPB 1 GM/100 ML BAG IV ONE (05:49)
[2022-09-15] MEDS ORDERED: POTASSIUM 25 MEQ EFFERV TAB PO ONE (05:49)
--- NOTE | 2022-09-15 06:08 | P.PN ---
Date of Service: 09/15/22 Subjective: agitated this morning, pulling at things, hit nurse and case management ROS: A complete review of systems was unable to be performed due mentation Physical Exam: Gen: confused, intermittently follows commands HEENT: tracheostomy, sclera anicteric, normal conjunctiva CV: sinus tachycardia, 1-2+ b/l pedal edema Pulm: non-labored, tachypneic, s/p tracheostomy, shallow respirations Abd: soft, non-distended, colostomy in place, small amount of stool output Neuro: moves extremities, blinks eyes to verbal stimuli, not following commands consistently; generalized weakness PEG in place Ontiveros in place vitals reviewed Problem List acute hypoxemic respiratory failure secondary to COPD exacerbation Acute on chronic COPD with exacerbation interstitial lung disease, fibrosis h/o Afib, paroxysmal LEOBARDO h/o Epistaxis Hypertension Cardiomyopathy/CHF, diastolic Sepsis/septic shock secondary to sigmoid colon perforation, now s/p colostomy severe protein calorie malnutrition anemia thrombocytopenia acute on chronic COPD exacerbation acute CHF exacerbation, diastolic CT 08/21 - bilateral fibrosis. required mechanical ventilation since surgery. s/p tracheostomy 09/07/22 Patient with baseline respiratory failure. She was difficult to extubate. Patient developed rapid atrial fibrillation and tachypnea on spontaneous breathing. pulm is following; Steroids and lasix held since bowel perforation. patient somnolent and not following commands, only receiving intermittent ativan and dilaudid, minimize doses. she gets very tachypneic and tachycardic when attempting to wean Pulmonary-Dr. Canchola recommended tracheostomy and PEG tube. s/p tracheostomy 09/07/22 s/p PEG 09/09/22 Protonix for GI prophylaxis. weaned to trach collar intermittently on 09/12, continue to wean as tolerated difficulty secondary to agitation, requiring ativan/dilaudid, otherwise will pull at trach / lines at times minimize medications that could contribute to her mentation / encephalopathy check EKG to evaluate QTc, may benefit from antipsychotic > ativan/dilaudid h/o afib, new diagnosis during last admission; paroxysmal Coreg was held due to prior hypotension, eventually dc'd afib with rvr overnight on 08/28-08/29, s/p lopressor x3, digoxin Seen by cardiology. started amio drip 08/29; in sinus rhythm since 12/7 AM with intermittent runs of afib - associated with weaning vent; Transitioned to p.o. amiodarone 09/11 continue digoxin Abdominal pain/pelvic abscess/sepsis secondary to perforated diverticulum with abscess1 Dr. Tavares performed laparotomy with bowel resection and colostomy. SALVADOR drains in place-no significant drainage. was on empiric merrem and vanc - ID changed to daptomycin on 09/01 to cover for VRE; continues on merrem/daptomycin ID dc'd daptomycin wound culture grew enterococcus dobhoff placed 09/03. stool output noted since 09/01. now s/p PEG 09/09 tube feeds as tolerated On IV Reglan per GI. CT 09/13 - ordered due to decreased ostomy output and chance in color no abscess, no obstruction review of prior imaging - dobhoff was likely post-pyloric, and patient now has PEG tube, which likely accounts for some of the difference in stool output tube feeds restarted 09/13 anemia acute on chronic, unclear etiology, suspect bone marrow suppression / lab draws, with some dark bloody output last week in ostomy no blood seen in ostomy since 09/04. Gastric residual with coffee-ground appearance. Endoscopy during PEG tube revealed gastritis. s/p 1 unit PRBC transfusion. continue Protonix Not on full anticoagulation for A. fib given recurrent drop in hemoglobin. monitor for bleeding, continue Lovenox for DVT prophylaxis thrombocytopenia improved iron studies ordered Monitor and optimize electrolytes. VTE: lovenox Code: Full Disposition: LTAC, awaiting insurance approval Time Spent Managing Pts Care (In Minutes): 25
--- NOTE | 2022-09-15 07:40 | RAD REPORT ---
EXAM DESCRIPTION: RAD - Chest Single View - 09/15/2022 6:46 am CLINICAL HISTORY: hypoxia, trach, f/u opacities COMPARISON: Chest Single View dated 09/13/2022; Abdomen 1 View (KUB) dated 09/10/2022; Chest Single View dated 09/09/2022; Chest Single View dated 09/06/2022; Abdomen Pelvis W Contrast dated 09/13/20 22 FINDINGS: Lines: Tracheostomy. Left subclavian approach PICC with tip overlying the distal SVC. Lungs: Ill-defined airspace opacities with predominantly in the lower lungs similar to prior. Pleural: No significant pleural effusions or pneumothorax. Cardiac: Similar size and configuration. Mediastinum: Within normal limits. Bones: No acute fractures. Other: None IMPRESSION: No significant change in aeration of the lungs with a moderate predominantly basilar air space disease that could reflect pneumonia or pneumonitis.
[2022-09-15] MEDS: LORazepam 2 MG/ML VIAL IV PRN (07:47)
[2022-09-15] MEDS: SPIRONOLACTONE 25 MG TABLET PO SCH ×2 (08:35→19:39)
[2022-09-15] MEDS: AMIODARONE HCL 200 MG TAB PO SCH ×2 (08:36→19:39)
[2022-09-15] MEDS: PANTOPRAZOLE 40 MG INJ IVP SCH (08:36)
[2022-09-15] MEDS: ENOXAPARIN 40 MG/0.4 ML SQ SCH (08:36)
[2022-09-15] MEDS: Meropenem 1,000 MG in NA CHLORIDE 0.9% 100 ML IV SCH (08:36)
--- NOTE | 2022-09-15 12:18 | P.PN ---
Subjective Date of Service: 09/15/22 Chief Complaint: Respiratory failure s/p trach Patient is steadily improving continues to remain agitated requiring restraints alert responsive still has secretions tolerating trach collar Review of Systems is unable to be obtained Physical Examination - Vital Signs Temperature: 97.2 F Blood Pressure: 139/67 Pulse: 112 Respirations: 24 Pulse Ox (%): 94 - Physical Exam General: Alert, Delirious Respiratory: Clear to auscultation bilaterally, Diminished Cardiovascular: Edema Assessment And Plan - Current Problems (Diagnosis) (1) Respiratory failure Current Visit: No Status: Acute Plan: Patient is improving all antibiotics are now DC'd reculture sputum crease the dose of spironolactone change to Xarelto for DVT prophylaxis and his PEG tubes DC Reglan Qualifiers: Chronicity: acute on chronic (2) Iron deficiency anemia Current Visit: Yes Status: Acute Plan: Most likely from chronic blood loss ordered some IV iron replacement patient is mildly anemic also ordered 1 unit of packed red blood cells a Qualifiers: Iron deficiency anemia type: chronic blood loss Qualified Code(s): D50.0 - Iron deficiency anemia secondary to blood loss (chronic) (3) Atrial fibrillation Current Visit: Yes Status: Acute Plan: History of A. fib still little tachycardic elevated 0.5 twice daily of metoprolol will increase as tolerated increase spironolactone
[2022-09-15] MEDS ORDERED: METOPROLOL XL 25 MG TAB PO SCH (12:30)
[2022-09-15] MEDS: SOD FERRIC GLUC COMPLX/SUCROSE 250 MG in NA CHLORIDE 0.9% 250 ML IV SCH (13:09)
[2022-09-15] MEDS: METOPROLOL TAR 25 MG TAB PO SCH ×2 (13:17→19:39)
--- NOTE | 2022-09-15 13:42 | PN ---
Subjective: Patient is lying in bed. No new acute event. Chart reviewed. Objective: Vital Signs: Temperature 97.2, pulse 112, respirations 24, blood pressure 139/67. Neck: Currently in trach collar. Lungs: Basal crackles. Heart: S1, S2. Regular. Abdomen: Soft, nontender. Bowel sounds present. Extremities: Wound VAC in place. No edema. Laboratory Data: Shows WBC 11.3, up from yesterday 9.8, hemoglobin 7.3, platelets of 387. Chemistry shows BUN of 14, creatinine 0.8. Patient does have Ontiveros catheter, PICC line placement, and wounds to the sacrococcyx area region. Assessment And Plan: Respiratory failure with pneumonitis versus pulmonary edema; abdominal abscess, status post evacuation and incision and drainage. Patient with wound VAC in place. Anemia of chron ic disease, leukocytosis, infectious versus and inflammatory, bilateral infiltrates secondary to sumit a versus infectious. Patient is off daptomycin since yesterday. We will continue meropenem and repe at culture if patient spikes fevers, especially urine, blood, and sputum. I agree with transfer to [facility] acute care. We will follow the patient as needed. NF/MODL Voice ID: [id number] Report ID: [id number]
[2022-09-15] MEDS ORDERED: NA CHLORIDE 0.9% 250 ML IV SCH (14:00)
[2022-09-15] MEDS ORDERED: RIVAROXABAN 10 MG TABLET PO SCH (17:00)
[2022-09-15] MEDS: VITAL AF 1,000 ML BOT RTH SCH (17:31)
[2022-09-15] MEDS: HYDROMORPHONE HCL 0.5 MG/0.5 ML INJ IV PRN (22:11)
[2022-09-15 23:06] LABS: Hematocrit 25.2 % (36.0-45.0)
[2022-09-16] MEDS: HYDROMORPHONE HCL 0.5 MG/0.5 ML INJ IV PRN (05:09)
[2022-09-16 05:23] LABS: Hematocrit 28.1 % (36.0-45.0); MCV 89.7 fL (80-100); RBC Red Blood Cell Count 3.14 M/uL (3.86-4.86)
[2022-09-16] MEDS ORDERED: LORazepam 2 MG/ML VIAL ONE (07:11)
[2022-09-16] MEDS ORDERED: METOPROLOL TARTRATE 5 MG/5 ML INJ IV ONE (07:11)
[2022-09-16 07:22] LABS: Arterial Blood Carboxyhemoglob 1.5 % (0-1.5); Blood Gas Oxyhemoglobin 87.1 % (94-97); Blood O2 Saturation 89.5 % (92-98.5)
[2022-09-16] MEDS: LORazepam 2 MG/ML VIAL IV PRN ×2 (07:23→13:23)
[2022-09-16] MEDS: METOPROLOL TARTRATE 5 MG/5 ML INJ IV PRN ×2 (07:24→16:03)
[2022-09-16] MEDS: AMIODARONE HCL 200 MG TAB PO SCH ×2 (07:41→20:40)
[2022-09-16] MEDS: SPIRONOLACTONE 25 MG TABLET PO SCH (07:41)
[2022-09-16] MEDS: METOPROLOL TAR 25 MG TAB PO SCH ×2 (07:41→20:40)
[2022-09-16] MEDS: HYDROMORPHONE HCL 1 MG/ML INJ IV PRN ×3 (07:42→23:16)
[2022-09-16] MEDS: SOD FERRIC GLUC COMPLX/SUCROSE 250 MG in NA CHLORIDE 0.9% 250 ML IV SCH (09:23)
--- NOTE | 2022-09-16 10:42 | RAD REPORT ---
EXAM DESCRIPTION: RAD - Chest Single View - 09/16/2022 7:31 am CLINICAL HISTORY: desaturation Chest pain. COMPARISON: Chest Single View dated 09/15/2022; Chest Single View dated 09/13/2022; Abdomen 1 View ( KUB) dated 09/10/2022; Chest Single View dated 09/09/2022 FINDINGS: Portable technique limits examination quality. Moderate bilateral pulmonary opacities are noted, slightly worse than on yesterday's study. The heart is mildly prominent size. Tracheostomy tube tip is above the leonard. IMPRESSION: Fractional worsening lung aeration seen since comparative study.
--- NOTE | 2022-09-16 11:54 | P.PN ---
Subjective Date of Service: 09/16/22 Chief Complaint: Respiratory failure s/p trach Patient developed respiratory distress this morning became more tachycardic tachypneic and to be changed over to pressure control ventilation with increasing PEEP her oxygen requirements have also gone up chest x-ray looks slightly worse Review of Systems is unable to be obtained Physical Examination - Vital Signs Temperature: 98.5 F Blood Pressure: 86/56 Pulse: 104 Respirations: 28 Pulse Ox (%): 100 - Physical Exam General: Unresponsive Respiratory: Crackles/rales, Expiratory wheezes Cardiovascular: Regular rate/rhythm, Normal S1 S2, Edema Assessment And Plan - Current Problems (Diagnosis) (1) Respiratory failure Current Visit: No Status: Acute Plan: Respiratory failure patient changed back to pressure control ventilation increase PEEP quiring more sedation much more settled when I went to see her around 11:00 chest x-ray shows worsening changes I risk for thromboembolism and started her on some Eliquis and count is gone up a little bit more condition is worsened by ABGs reduce dose of spironolactone patient is off all antibiotic sputum cultures are pending Qualifiers: Chronicity: acute on chronic (2) Iron deficiency anemia Current Visit: Yes Status: Acute Plan: Patient was transfused yesterday and also receiving iron Qualifiers: Iron deficiency anemia type: chronic blood loss Qualified Code(s): D50.0 - Iron deficiency anemia secondary to blood loss (chronic) (3) Atrial fibrillation Current Visit: Yes Status: Acute Plan: History of A. fib still little tachycardic elevated 0.5 twice daily of metoprolol will increase as tolerated increase spironolactone
--- NOTE | 2022-09-16 17:24 | EKG ---
Test Date: 2022-09-15 Test Time: 18:04:36 Paving Inspector: EC MEASUREMENT RESULTS: Intervals: Rate: 103 ID: [id number] QRSD: 80 QT: 354 QTc: 463 [place]: P: 59 ID: [id number] QRS: -10 T: 39 INTERPRETIVE STATEMENTS: Sinus tachycardia Low voltage QRS Borderline ECG Compared to ECG 09/09/2022 20:30:53 Low QRS voltage now present Sinus rhythm no longer present T-wave abnormality no longer present Electronically Signed On 09-16-22 17:24:04 TIME LOCK EXPERT by Thierry Crenshaw
[2022-09-16] MEDS ORDERED: WATER FOR INJ,STERILE 10 ML IM PRN (17:49)
[2022-09-16] MEDS ORDERED: ZIPRASIDONE MESYLA 20 MG/VIAL IM PRN (17:49)
[2022-09-16] MEDS: APIXABAN 5 MG TABLET PO SCH (20:40)
[2022-09-17] MEDS: HYDROMORPHONE HCL 0.5 MG/0.5 ML INJ IV PRN (05:28)
[2022-09-17 05:33] LABS: Absolute Lymphocytes (CBC) 2.6 K/uL (0.7-4.9); Hematocrit 24.7 % (36.0-45.0); Lymphocytes % 16.4 % (15.3-44.8); MCV 88.4 fL (80-100); MPV 6.9 fL (7.6-11.3); RBC Red Blood Cell Count 2.79 M/uL (3.86-4.86)
[2022-09-17 05:53] LABS: Albumin 1.3 g/dL (3.4-5.0); Bilirubin Total 2.7 mg/dL (0.2-1.0); Potassium 4.1 mmol/L (3.5-5.1); Protein, Total 5.5 g/dL (6.4-8.2)
[2022-09-17] MEDS: APIXABAN 5 MG TABLET PO SCH ×2 (08:06→20:20)
[2022-09-17] MEDS: SOD FERRIC GLUC COMPLX/SUCROSE 250 MG in NA CHLORIDE 0.9% 250 ML IV SCH (08:06)
[2022-09-17] MEDS: AMIODARONE HCL 200 MG TAB PO SCH ×2 (08:06→20:20)
[2022-09-17] MEDS: METOPROLOL TAR 25 MG TAB PO SCH ×2 (08:06→20:20)
[2022-09-17] MEDS: SPIRONOLACTONE 25 MG TABLET PO SCH (08:07)
[2022-09-17] MEDS: LORazepam 2 MG/ML VIAL IV PRN (09:02)
--- NOTE | 2022-09-17 09:08 | RAD REPORT ---
EXAM DESCRIPTION: RAD - Chest Single View - 09/17/2022 6:25 am CLINICAL HISTORY: Respiratory failure Chest pain. COMPARISON: Chest Single View dated 09/16/2022; Chest Single View dated 09/15/2022; Chest Single Vie w dated 09/13/2022; Abdomen 1 View (KUB) dated 09/10/2022 FINDINGS: Portable technique limits examination quality. Extensive bilateral pulmonary opacities are noted, appearing fractionally worse since yesterday's eddie dy. The heart is moderately enlarged. Tracheostomy tube has tip above the leonard.Left-sided PICC line has tip in the SVC. IMPRESSION: Mild worsening in lung aeration since yesterday's examination.
[2022-09-17] MEDS: HYDROMORPHONE HCL 1 MG/ML INJ IV PRN ×3 (09:25→19:13)
--- NOTE | 2022-09-17 10:49 | P.PN ---
Subjective Date of Service: 09/17/22 Chief Complaint: Respiratory failure s/p trach ARDS Patient is x-ray has worsened she is requiring more oxygen chest x-ray consistent with ARDS s/p trach still requiring sedation accretions have declined Review of Systems is unable to be obtained Physical Examination - Vital Signs Temperature: 98.1 F Blood Pressure: 128/67 Pulse: 121 Respirations: 31 Pulse Ox (%): 96 - Physical Exam General: Unresponsive Respiratory: Expiratory wheezes Cardiovascular: No edema, Regular rate/rhythm, Normal S1 S2 Assessment And Plan - Current Problems (Diagnosis) (1) Respiratory failure Current Visit: No Status: Acute Plan: Respiratory failure presumed ARDS SIMV and pressure support sputum cultures no growth labs reviewed white count is mildly elevated continue to monitor hemoglobin is slight decline colostomy is working patient continues to remain agitated requiring sedation awaiting LTAC vital signs stable prognosis very poor chest x-ray has worsened Qualifiers: Chronicity: acute on chronic (2) Iron deficiency anemia Current Visit: Yes Status: Acute Plan: Patient was transfused yesterday and also receiving iron Qualifiers: Iron deficiency anemia type: chronic blood loss Qualified Code(s): D50.0 - Iron deficiency anemia secondary to blood loss (chronic) (3) Atrial fibrillation Current Visit: Yes Status: Acute Plan: History of A. fib still little tachycardic elevated 0.5 twice daily of metoprolol will increase as tolerated increase spironolactone
[2022-09-18] MEDS: HYDROMORPHONE HCL 0.5 MG/0.5 ML INJ IV PRN (00:03)
[2022-09-18 05:07] LABS: Hematocrit 23.3 % (36.0-45.0); MCV 89.7 fL (80-100)
[2022-09-18 05:28] LABS: Potassium 4.2 mmol/L (3.5-5.1)
[2022-09-18] MEDS: SPIRONOLACTONE 25 MG TABLET PO SCH (07:31)
[2022-09-18] MEDS: METOPROLOL TAR 25 MG TAB PO SCH ×2 (07:32→20:39)
[2022-09-18] MEDS: AMIODARONE HCL 200 MG TAB PO SCH (07:32)
[2022-09-18] MEDS: APIXABAN 5 MG TABLET PO SCH ×2 (07:32→20:40)
[2022-09-18] MEDS: SOD FERRIC GLUC COMPLX/SUCROSE 250 MG in NA CHLORIDE 0.9% 250 ML IV SCH (08:55)
--- NOTE | 2022-09-18 10:16 | RAD REPORT ---
EXAM DESCRIPTION: RAD - Chest Single View - 09/18/2022 5:55 am CLINICAL HISTORY: Respiratory failure Chest pain. COMPARISON: Chest Single View dated 09/17/2022; Chest Single View dated 09/16/2022; Chest Single Vie w dated 09/15/2022; Chest Single View dated 09/13/2022 FINDINGS: Portable technique limits examination quality. Moderate bilateral pulmonary opacities show fractional improvement since yesterday's study. The heart is normal in size. Tracheostomy tube remains unchanged in position.Left PICC line is stable in posit ion. IMPRESSION: Fractional improvement in lung aeration since yesterday's study.
[2022-09-18] MEDS: HYDROMORPHONE HCL 1 MG/ML INJ IV PRN ×2 (13:24→19:40)
[2022-09-18] MEDS: Meropenem 1,000 MG in NA CHLORIDE 0.9% 100 ML IV SCH ×2 (13:35→20:38)
--- NOTE | 2022-09-18 15:40 | PN ---
Date of Progress Note: 09/18/2022 Diagnoses: Perforated rupture, diverticulitis, respiratory failure, intraabdominal abscess, status p ost laparotomy, bowel resection with end colostomy and drainage of intraperitoneal abscess. Subjective: The patient further has a PEG tube and she also has a tracheostomy tube. Objective: Chest: Clear. Abdomen: Intact surgical site. Ostomy viable. Extremities: Good capillary refill. Laboratory Data: Blood work shows a WBC count of 15.6. Previous CT scan shows no abscess. Plan: Continue management by the medical doctor. Continue wound VAC. LTAC when possible. CHTENA/MODL Voice ID: [id number] Report ID: [id number]
[2022-09-18] MEDS: VITAL AF 1,000 ML BOT RTH SCH (15:46)
--- NOTE | 2022-09-18 15:56 | P.PN ---
Subjective Date of Service: 09/18/22 Chief Complaint: Respiratory failure s/p trach ARDS Condition stable agitation is decreased having some secretions abnormal LFTs Review of Systems is unable to be obtained Physical Examination - Vital Signs Temperature: 97.4 F Blood Pressure: 125/80 Pulse: 108 Respirations: 36 Pulse Ox (%): 96 - Physical Exam General: Alert Respiratory: Clear to auscultation bilaterally, Diminished Cardiovascular: No edema, Regular rate/rhythm Gastrointestinal: Normal bowel sounds, Soft and benign, Non-distended, No tenderness Assessment And Plan - Current Problems (Diagnosis) (1) Respiratory failure Current Visit: No Status: Acute Plan: Condition stable will and do trach collar weaning trials ARDS pattern on chest x-ray abnormal liver function test we will repeat hold off on amiodarone for now mild increase in her white count meropenem has been resumed awaiting transfer to an LTAC no tenderness rebound of her abdomen bowels are working fine oxygenation satisfactory cultures negative Qualifiers: Chronicity: acute on chronic (2) Iron deficiency anemia Current Visit: Yes Status: Acute Plan: Patient was transfused yesterday and also receiving iron Qualifiers: Iron deficiency anemia type: chronic blood loss Qualified Code(s): D50.0 - Iron deficiency anemia secondary to blood loss (chronic) (3) Atrial fibrillation Current Visit: Yes Status: Acute Plan: History of A. fib still little tachycardic elevated 0.5 twice daily of metoprolol will increase as tolerated increase spironolactone
[2022-09-19] MEDS: LORazepam 2 MG/ML VIAL IV PRN ×2 (00:04→20:25)
[2022-09-19] MEDS: HYDROMORPHONE HCL 1 MG/ML INJ IV PRN ×2 (04:20→22:49)
[2022-09-19] MEDS: Meropenem 1,000 MG in NA CHLORIDE 0.9% 100 ML IV SCH ×3 (04:20→20:25)
[2022-09-19] MEDS: ONDANSETRON 4 MG/2 ML VIAL IV PRN (04:20)
[2022-09-19 04:43] LABS: MCV 90.1 fL (80-100); MPV 6.8 fL (7.6-11.3); RBC Red Blood Cell Count 2.56 M/uL (3.86-4.86)
[2022-09-19 05:06] LABS: Albumin 1.3 g/dL (3.4-5.0); Bilirubin Total 0.9 mg/dL (0.2-1.0); Phosphorus 4.2 mg/dL (2.5-4.9); Potassium 4.5 mmol/L (3.5-5.1); Protein, Total 5.8 g/dL (6.4-8.2)
--- NOTE | 2022-09-19 06:10 | PN ---
Subjective: Patient lying in bed, currently on 60% FiO2, which has increased from last time I saw berta goode. Also input, output have gone down as per staff. Objective: Vital Signs: Temperature 97, pulse 114, respirations 28, blood pressure 123/63. Lungs: Basal crackles. Heart: S1, S2. Regular. Abdomen: Soft, nontender. Bowel sounds present. Extremities: Trace edema. Wound VAC in place. Drains: Colostomy bag in place. Ontiveros catheter in place. Laboratory Data: Shows WBC 15.6, hemoglobin 7.6, platelets 347. Chemistry shows BUN of 29, creatini ne 1.05. Albumin level is 1.3. Assessment And Plan: Respiratory failure, status post I and D and evacuation of pelvic abscess due t o colonic perforation. Leukocytosis, we will re-culture PICC and urine and blood and start patient o n meropenem empirically 500 mg every 8 hours. Sacral stage II wound. Prognosis guarded. We will follow patient closely. NF/MODL Voice ID: [id number] Report ID: [id number]
[2022-09-19] MEDS: SPIRONOLACTONE 25 MG TABLET PO SCH (07:11)
[2022-09-19] MEDS: METOPROLOL TAR 25 MG TAB PO SCH ×3 (07:13→20:27)
[2022-09-19] MEDS: APIXABAN 5 MG TABLET PO SCH ×2 (07:13→20:28)
--- NOTE | 2022-09-19 09:26 | RAD REPORT ---
EXAM DESCRIPTION: RAD - Chest Single View - 09/19/2022 6:57 am CLINICAL HISTORY: Respiratory failure Chest pain. COMPARISON: Chest Single View dated 09/18/2022; Chest Single View dated 09/17/2022; Chest Single Vie w dated 09/16/2022; Chest Single View dated 09/15/2022 FINDINGS: Portable technique limits examination quality. Since yesterday's examination, little overall change is seen in lung aeration. The heart is mildly en larged in size. Tracheostomy tube and left PICC line is unchanged in position. IMPRESSION: Stable chest since yesterday's study.
[2022-09-19] MEDS: METOCLOPRAMIDE 10 MG/2mL INJ IV SCH ×2 (11:24→20:27)
[2022-09-19] MEDS: HYDROMORPHONE HCL 0.5 MG/0.5 ML INJ IV PRN (11:51)
--- NOTE | 2022-09-19 14:00 | P.PN ---
Subjective Date of Service: 09/19/22 Chief Complaint: Respiratory failure s/p trach ARDS Status post tracheostomy 09/07. Per report patient tolerated oxygen by trach collar for a day, later placed on mechanical ventilation again, and currently requiring more FiO2-60%. Nursing staff report patient vomited last night and tube feeding was held. She is awake and obeying commands. Physical Examination - Vital Signs Temperature: 97.3 F Blood Pressure: 88/49 Pulse: 108 Respirations: 25 Pulse Ox (%): 99 Assessment And Plan - Plan Physical exam GEN: Somnolent on the vent. HEENT: NG tube. Neck: Tracheostomy CV: Regular rate and rhythm, tachycardia, no edema Pulm: Bilateral upper airway transmitted sounds, adequate breath sounds bilaterally ABD: Soft, nondistended, left colostomy, wound VAC on midline surgical wound. Neuro: Awake, obeys commands, no focal motor deficit. Problem List acute hypoxemic respiratory failure secondary to COPD exacerbation Acute on chronic COPD with exacerbation interstitial lung disease, fibrosis h/o Afib, paroxysmal LEOBARDO h/o Epistaxis Hypertension Cardiomyopathy/CHF, diastolic Sepsis/septic shock secondary to sigmoid colon perforation, now s/p colostomy severe protein calorie malnutrition anemia thrombocytopenia acute on chronic COPD exacerbation acute CHF exacerbation, diastolic CT 08/21 - bilateral fibrosis. required mechanical ventilation since surgery. s/p tracheostomy 09/07/22 Patient with baseline respiratory failure. She was difficult to extubate. Patient developed rapid atrial fibrillation and tachypnea on spontaneous breathing. pulm is following; Steroids and lasix held since bowel perforation. Pulmonary-Dr. Canchola recommended tracheostomy and PEG tube. s/p tracheostomy 09/07/22 s/p PEG 09/09/22 Protonix for GI prophylaxis. Patient weaned to trach collar briefly and then back on the vent. Continue weaning to weaned to trach collar. Patient with intermittent agitation requiring ativan/dilaudid, and will pull at trach and lines at times minimize medications that could contribute to her mentation / encephalopathy h/o afib, new diagnosis during last admission; paroxysmal Coreg was initially discontinued due to hypotension Seen by cardiology and patient treated with amiodarone drip, later transitioned to oral amiodarone. Amiodarone now discontinued due to rising LFTs. She is back on metoprolol for A. fib rate control. Off Digoxin Abdominal pain/pelvic abscess/sepsis secondary to perforated diverticulum with abscess1 Dr. Tavares performed laparotomy with bowel resection and colostomy. SALVADOR drains in place-no significant drainage. was on empiric merrem and vanc - ID changed to daptomycin on 09/01 to cover for VRE; continues on merrem/daptomycin ID later dc'd daptomycin wound culture grew enterococcus dobhoff placed 09/03. stool output noted since 09/01. s/p PEG 09/09 tube feeds as tolerated. IV Reglan due to intermittent vomiting. CT 09/13 - ordered due to decreased ostomy output and chance in color no abscess, no obstruction Anemia acute on chronic, unclear etiology, suspect bone marrow suppression / lab draws, with some dark bloody output last week in ostomy no blood seen in ostomy since 09/04. Gastric residual with coffee-ground appearance. Endoscopy during PEG tube revealed gastritis. s/p 2 units PRBC transfusion. continue Protonix Eliquis for A. fib resumed monitor for bleeding. thrombocytopenia improved iron studies ordered Start IV iron. VTE: Eliquis Code: Full Disposition: Plan is to monitor until she is stable on the vent and then transfer to LTAC. Time Spent Managing Pts Care (In Minutes): 25
--- NOTE | 2022-09-19 14:46 | PN ---
Subjective: Patient lying in bed, opens eyes spontaneously, stayed on ventilator at 60% FiO2. Patie nt with no new acute event overnight. Objective: Vital Signs: Temperature 98, pulse 107, respirations 28, blood pressure 111/64. Lungs: Basal crackles. Heart: S1, S2. Regular. Abdomen: Soft, nontender. Bowel sounds present. Extremities: Trace edema. Laboratory Data: WBC 17.6 up from yesterday 15.6, hemoglobin 7.5, platelets 133. BUN is 41, creatin ine 1.1. Cultures are pending. Chest x-ray shows bilateral basal infiltrate. Assessment And Plan: 1.Respiratory failure, on ventilator support, status post incision and drainage of pelvic abscess an d colonic perforation. 2.Leukocytosis. Patient currently on meropenem. Afebrile. Cultures are pending. We will send als o sputum cultures. PICC line and Ontiveros in place. 3.Sacral coccyx and moisture-associated dermatitis, anemia of chronic disease, leukocytosis, renal i nsufficiency, severe protein-calorie malnourishment. Continue current treatment. We will follow the patient as needed. NF/MODL Voice ID: [id number] Report ID: [id number]
[2022-09-20] MEDS: HYDROMORPHONE HCL 1 MG/ML INJ IV PRN ×2 (04:30→19:42)
[2022-09-20] MEDS: METOCLOPRAMIDE 10 MG/2mL INJ IV SCH ×3 (04:38→19:43)
[2022-09-20] MEDS: Meropenem 1,000 MG in NA CHLORIDE 0.9% 100 ML IV SCH ×3 (04:38→19:43)
[2022-09-20 04:53] LABS: MCV 90.7 fL (80-100); MPV 7.1 fL (7.6-11.3); RBC Red Blood Cell Count 2.43 M/uL (3.86-4.86)
[2022-09-20 04:59] LABS: Magnesium 2.3 mg/dL (1.6-2.4); Phosphorus 4.9 mg/dL (2.5-4.9); Potassium 4.7 mmol/L (3.5-5.1)
[2022-09-20] MEDS: SPIRONOLACTONE 25 MG TABLET PO SCH (07:11)
[2022-09-20] MEDS: APIXABAN 5 MG TABLET PO SCH ×2 (07:11→20:00)
[2022-09-20] MEDS: METOPROLOL TAR 25 MG TAB PO SCH ×2 (07:12→20:00)
--- NOTE | 2022-09-20 07:44 | RAD REPORT ---
EXAM DESCRIPTION: RAD - Chest Single View - 09/20/2022 5:24 am CLINICAL HISTORY: Respiratory failure COMPARISON: Chest Single View dated 09/19/2022; Chest Single View dated 09/18/2022; Chest Single Vie w dated 09/17/2022; Chest Single View dated 09/16/2022; Abdomen Pelvis W Contrast dated 09/13/2022; Chest Single View dated 09/15/2022 FINDINGS: Lines: Tracheostomy. Left subclavian approach PICC with tip overlying the distal SVC. Lungs: Bilateral interstitial and airspace disease without significant change compared with 2. Pleural: Small effusions suspected. Cardiac: Similar size and configuration. Mediastinum: Within normal limits. Bones: No acute fractures. Other: None IMPRESSION: Unchanged aeration of the lungs bilaterally with bilateral airspace disease may reflect multifocal pneumonia.
[2022-09-20] MEDS: SOD FERRIC GLUC COMPLX/SUCROSE 125 MG in NA CHLORIDE 0.9% 100 ML IV SCH (08:12)
[2022-09-20] MEDS: LEVALBUTEROL 1.25 MG/3 ML NEB NEB PRN (08:38)
--- NOTE | 2022-09-20 10:01 | P.PN ---
Subjective Date of Service: 09/20/22 Chief Complaint: Respiratory failure s/p trach ARDS Patient laying in ICU unresponsive no new acute event in last 24 hours Physical Examination - Vital Signs Temperature: 97.3 F Blood Pressure: 107/82 Pulse: 103 Respirations: 23 Pulse Ox (%): 100 - Physical Exam General: In no apparent distress HEENT: Atraumatic, Normocephalic Neck: Supple, JVD not distended Respiratory: Crackles/rales Cardiovascular: Normal S1 S2, Edema Gastrointestinal: Normal bowel sounds, Non-distended Musculoskeletal: No clubbing, No contractures Integumentary: No erythema, Other (Bilateral buttock errythmatous and abdominal wound vaac in place) Urinary: Ontiveros catheter - Studies Laboratory Last Values WBC 19.00 K/uL (4.3-10.9) H 08/12/22 12:43 RBC 4.12 M/uL (3.86-4.86) 08/12/22 12:43 Hgb 12.4 g/dL (12.0-15.0) 08/12/22 12:43 Hct 38.0 % (36.0-45.0) 08/12/22 12:43 MCV 92.2 fL (80-100) 08/12/22 12:43 MCH 30.0 pg (27.0-35.0) 08/12/22 12:43 MCHC 32.5 g/dL (32.0-36.0) 08/12/22 12:43 RDW 14.7 % (12.1-15.2) 08/12/22 12:43 Plt Count 360 K/uL (152-406) 08/12/22 12:43 MPV 6.9 fL (7.6-11.3) L 08/12/22 12:43 Neutrophils % 81.6 % (41.7-73.7) H 08/12/22 12:43 Lymphocytes % 10.3 % (15.3-44.8) L 08/12/22 12:43 Monocytes % 7.6 % (3.3-12.3) 08/12/22 12:43 Eosinophils % 0.1 % (0-4.4) 08/12/22 12:43 Basophils % 0.4 % (0-1.3) 08/12/22 12:43 Absolute Neutrophils 15.5 K/uL (1.8-8.0) H 08/12/22 12:43 Absolute Lymphocytes 2.0 K/uL (0.7-4.9) 08/12/22 12:43 Absolute Monocytes 1.4 K/uL (0.1-1.3) H 08/12/22 12:43 Absolute Eosinophils 0.0 K/uL (0-0.5) 08/12/22 12:43 Absolute Basophils 0.1 K/uL (0-0.5) 08/12/22 12:43 PT 16.8 SECONDS (9.5-12.5) H 08/12/22 12:43 INR 1.53 08/12/22 12:43 APTT 29.1 SECONDS (24.3-36.9) 08/12/22 12:43 D-Dimer 6432 FEUng/mL (<500) H* 08/12/22 12:43 pH 7.33 (7.35-7.45) L 08/12/22 12:50 pCO2 39.0 mmHG (35-45) 08/12/22 12:50 pO2 21.0 mmHG (75-100) L 08/12/22 12:50 HCO3 20.0 mmol/L (22-28) L 08/12/22 12:50 Base Excess -4.8 mmol/L 08/12/22 12:50 Oxyhemoglobin 20.1 % (94-97) L 08/12/22 12:50 ABG O2 Sat (Measured) 20.7 % (92-98.5) L 08/12/22 12:50 ABG Carboxyhemoglobin 1.6 % (0-1.5) H 08/12/22 12:50 ABG Methemoglobin 1.1 % (0-1.5) 08/12/22 12:50 Other Total Hgb 12.2 g/dl (12-18) 08/12/22 12:50 Inspired O2 50.0 % 08/12/22 12:50 Sodium 135 mmol/L (136-145) L 08/12/22 12:43 Potassium 4.3 mmol/L (3.5-5.1) 08/12/22 12:43 Chloride 101 mmol/L (98-107) 08/12/22 12:43 Carbon Dioxide 19 mmol/L (21-32) L 08/12/22 12:43 Anion Gap 19.3 mEq/L (5.0-15.0) H 08/12/22 12:43 BUN 19 mg/dL (7-18) H 08/12/22 12:43 Creatinine 1.42 mg/dL (0.55-1.3) H 08/12/22 12:43 Est GFR (CKD-EPI) 41 ml/min (=/>90) L 08/12/22 12:43 Glucose 147 mg/dL (74-106) H 08/12/22 12:43 Lactic Acid 1.7 mmol/L (0.4-2.0) 08/12/22 14:50 Calcium 8.7 mg/dL (8.5-10.1) 08/12/22 12:43 Magnesium 2.1 mg/dL (1.8-2.4) 08/12/22 12:43 Total Bilirubin 1.4 mg/dL (0.2-1.0) H 08/12/22 12:43 Direct Bilirubin 0.5 mg/dL (0-0.2) H 08/12/22 12:43 AST 25 U/L (15-37) 08/12/22 12:43 ALT 16 U/L (12-78) 08/12/22 12:43 Alkaline Phosphatase 94 U/L (45-117) 08/12/22 12:43 Creatine Kinase 36 U/L (26-192) 08/12/22 12:43 CK-MB (CK-2) 1.5 ng/mL (1.0-3.6) 08/12/22 12:43 Troponin I High Sens 119.6 pg/mL (<58.9) H* 08/12/22 12:43 NT-Pro-B Natriuret Pep 9288 pg/mL (<125) H 08/12/22 12:43 Serum Total Protein 6.6 g/dL (6.4-8.2) 08/12/22 12:43 Albumin 2.0 g/dL (3.4-5.0) L 08/12/22 12:43 Globulin 4.6 g/dL (2.3-3.5) H 08/12/22 12:43 Albumin/Globulin Ratio 0.4 (1.1-1.8) L 08/12/22 12:43 Influenza Type A RNA Negative (NEGATIVE) 08/12/22 15:10 Influenza Type B RNA Negative (NEGATIVE) 08/12/22 15:10 SARS-CoV-2 RNA (RT-PCR) Negative (NEGATIVE) 08/12/22 15:10 Microbiology Data (last 24 hrs): Microbiology 08/12/22 14:02 Blood - Blood Aerobic Blood Culture - Final No growth in 5 days. 08/12/22 14:02 Blood - Blood Anaerobic Blood Culture - Final No growth in 5 days. 08/12/22 12:44 Blood - Blood Aerobic Blood Culture - Final No growth in 5 days. 08/12/22 12:44 Blood - Blood Anaerobic Blood Culture - Final No growth in 5 days. Medications List Reviewed: Yes Assessment And Plan - Plan Respiratory failure currently on ventilator and unresponsive Pelvic abscess s/p I&D Anemia of chronic disease Leukocytosis improving Renal insuf consider renal consult Severe protein calorie malnourishment Continue meropenem CT abdomen showed dot infilterate no obstruction or abscess
[2022-09-20] MEDS: HYDROMORPHONE HCL 0.5 MG/0.5 ML INJ IV PRN ×2 (11:40→15:04)
--- NOTE | 2022-09-20 12:15 | P.PN ---
Subjective Date of Service: 09/20/22 Chief Complaint: Respiratory failure s/p trach ARDS No issues overnight. No more vomiting. Patient is currently on mechanical ventilation-SIMV mode. FiO2 weaned down to 40%. She is awake and follow instructions. Physical Examination - Vital Signs Temperature: 97.3 F Blood Pressure: 107/82 Pulse: 103 Respirations: 28 Pulse Ox (%): 94 - Studies Medications List Reviewed: Yes Assessment And Plan - Plan Physical exam GEN: Awake, not in acute distress. Neck: Tracheostomy CV: Irregular rhythm, tachycardia, no edema Pulm: Bilateral upper airway transmitted sounds, adequate breath sounds bilaterally ABD: Soft, nondistended, left colostomy, wound VAC on midline surgical wound. Neuro: Awake, obeys commands, no focal motor deficit. Problem List acute hypoxemic respiratory failure secondary to COPD exacerbation Acute on chronic COPD with exacerbation interstitial lung disease, fibrosis h/o Afib, paroxysmal LEOBARDO h/o Epistaxis Hypertension Cardiomyopathy/CHF, diastolic Sepsis/septic shock secondary to sigmoid colon perforation, now s/p colostomy severe protein calorie malnutrition anemia thrombocytopenia acute on chronic COPD exacerbation acute CHF exacerbation, diastolic CT 08/21 - bilateral fibrosis. required mechanical ventilation since surgery. s/p tracheostomy 09/07/22 Patient with baseline respiratory failure. She was difficult to extubate. Patient developed rapid atrial fibrillation and tachypnea on spontaneous breathing. pulm is following; Steroids and lasix held since bowel perforation. Pulmonary-Dr. Canchola recommended tracheostomy and PEG tube. s/p tracheostomy 09/07/22 s/p PEG 09/09/22 Protonix for GI prophylaxis. Patient weaned to trach collar briefly and then back on the vent. Continue weaning to trach collar. Patient with intermittent agitation requiring ativan/dilaudid, and will pull at trach and lines at times minimize psychotropic medications. h/o afib, new diagnosis during last admission; paroxysmal Coreg was initially discontinued due to hypotension Seen by cardiology and patient treated with amiodarone drip, later transitioned to oral amiodarone. Amiodarone now discontinued due to rising LFTs. She is back on metoprolol for A. fib rate control. Off Digoxin Abdominal pain/pelvic abscess/sepsis secondary to perforated diverticulum with abscess1 Dr. Tavares performed laparotomy with bowel resection and colostomy. SALVADOR drains in place-no significant drainage. was on empiric merrem and vanc - ID changed to daptomycin on 09/01 to cover for VRE. ID later dc'd daptomycin wound culture grew enterococcus dobhoff placed 09/03. stool output noted since 09/01. s/p PEG 09/09 tube feeds as tolerated. IV Reglan due to intermittent vomiting. CT 09/13 - ordered due to decreased ostomy output and chance in color no abscess, no obstruction. Currently on meropenem per ID. Anemia acute on chronic, unclear etiology, suspect bone marrow suppression / lab draws, with some dark bloody output last week in ostomy no blood seen in ostomy since 09/04. Gastric residual with coffee-ground appearance. Endoscopy during PEG tube revealed gastritis. s/p 2 units PRBC transfusion. Hemoglobin 7.1 today. Continue to monitor CBC continue Protonix Eliquis for A. fib resumed monitor for bleeding. thrombocytopenia improved iron studies shows iron deficiency On IV iron. VTE: Eliquis Code: Full Disposition: Plan is to monitor until she is stable on the vent and then transfer to LTAC. Time Spent Managing Pts Care (In Minutes): 25
--- NOTE | 2022-09-20 12:49 | P.CNS ---
Date of Consult: 09/20/22 Reason for Consult: LEOBARDO Requesting Physician: sawyer novoa Chief Complaint: Respiratory failure s/p trach ARDS History of Present Illness: Pt is a 66 yo female whose history is obtained solely through chart review as she remains on the vent, she has had a prolonged admission with sepsis, septic shock 2nd to colonic perforation s/p colostomy, acute hypoxemic resp failure 2nd to COPD exacerbation, underlying interstitial lung disease and/or development of ARDS. Pt s/p trach now. Pt remains on the vent. She has had parox Afib. She has been anemic, she has had LEOBARDO earlier in admission and now Cr level back up mildly. Allergies codeine Allergy (Mild, Verified 07/23/22 16:33) Itching Home Medications: Ca/D3/Mag Ox/Zinc/[employer] Seasonal Specialist/Nakul/Bor [Calcium 600-Vit D3-Min Chew Tb] 2 each PO DAILY 07/20/22 Montelukast [Singulair*] 10 mg PO BEDTIME 07/20/22 Multivitamin [Multiple Vitamins] 1 each PO DAILY 07/20/22 Omeprazole 20 mg PO DAILY 07/20/22 Fluticasone/Umeclidin/Vilanter [Trelegy Ellipta 200-62.5-25] 1 each IH DAILY #30 aero 07/28/22 Cetirizine HCl [Zyrtec] 10 mg PO DAILY #30 tab 07/30/22 Ipratropium Neb [Atrovent*] 0.5 mg NEB [id number] PRN #120 amp 07/30/22 Metoprolol Tartrate [Lopressor*] 50 mg PO BID #60 tab 07/30/22 predniSONE [Deltasone*] 10 mg PO BIDL #8 tab 07/30/22 Carvedilol [Coreg] 12.5 mg PO BID 08/12/22 Cetirizine HCl [Zyrtec] 10 mg PO DAILY 08/12/22 Fluticasone [Flonase 50MCG Nasal [place]*] 1 sprays ABHISHEK DAILY 08/12/22 Guaifenesin [Mucinex] 600 mg PO BID 08/12/22 Naproxen [Naprosyn] 1,000 mg PO BID 08/12/22 - Past Medical/Surgical History Diabetic: No -: cardiomyopathy -: COPD -: Hypertension -: emphysema -: -: Wrist surgery Psychosocial/ Personal History: Patient lives at home with her daughter - Social History Alcohol use: No CD- Drugs: No Caffeine use: Yes Place of Residence: Home Review of Systems is unable to be obtained Physical Examination Temp Pulse Resp BP Pulse Ox 97.3 F 103 H 28 H 107/82 94 09/20/22 12:15 09/20/22 12:15 09/20/22 12:15 09/20/22 12:15 09/20/22 12:15 General: Other (Connected to vent, sleeping, NAD) HEENT: Atraumatic, Normocephalic Neck: Supple, Other (Trach) Respiratory: Other (b/l vent BS, reduced at the bases) Cardiovascular: Other (Non tachy, mildly irregular) Gastrointestinal: Other (Soft, mild distention, mid line incision with wound vac, left side colostomy with liquid stool) Musculoskeletal: Other (no sig edema, shins are non tender) Integumentary: No rashes, No significant lesion Neurological: Other (Sleeping off sedation, does not awaken to verbal stimuli) Conclusions/Impression: A/P) 1. Stage 1 LEOBARDO in the setting of some relative hypotension, anemia/drop in counts, aldosterone antagonist use, other. Prior LEOBARDO episode earlier in admission. Non anuric but UOP has been a bit on the lower side. Prior UA earlier in the mo had shown granular casts then. Will monitor azotemia. 2. Given some relative hypotension, marked hypoalbuinemia, other -will give some intravascular vol in the form of Albumin doses with 25% x 2 3. Will slightly increase free water flushes to 150 cc q4h, pt has had some mild hyponatremia, latest Na level ok at 135. No reports of large ostomy output 4. Will recheck UA 5. Will d/c Aldactone currently. 6. Vent management and weaning per Pulm. Zach Tom MD, TRACEY
[2022-09-20] MEDS: ALBUMIN HUMAN 25% 100 ML IV SCH (13:12)
--- NOTE | 2022-09-20 15:54 | P.PN ---
Subjective Date of Service: 09/21/22 Chief Complaint: Respiratory failure s/p trach ARDS Condition stable agitation is decreased having some secretions abnormal LFTs Physical Examination - Vital Signs Temperature: 97.3 F Blood Pressure: 142/78 Pulse: 104 Respirations: 23 Pulse Ox (%): 95 - Studies Medications List Reviewed: Yes Assessment And Plan - Current Problems (Diagnosis) (1) Respiratory failure Current Visit: No Status: Acute Plan: No change in patient's condition still trying to wean her off from the ventilator labs reviewed seen by nephrology diuretics have been discontinued unable to wean the patient off from the ventilator stable to be transferred Qualifiers: Chronicity: acute on chronic (2) Iron deficiency anemia Current Visit: Yes Status: Acute Plan: Patient was transfused yesterday and also receiving iron Qualifiers: Iron deficiency anemia type: chronic blood loss Qualified Code(s): D50.0 - Iron deficiency anemia secondary to blood loss (chronic) (3) Atrial fibrillation Current Visit: Yes Status: Acute Plan: History of A. fib abnormal LFTs amiodarone discontinued
[2022-09-20] MEDS ORDERED: AA 5%/D20W/ELECTROLYTES-TPN 2,000 ML, Lipids 20% 250 ML with MULTIVITAMINS INJ 10 ML IV SCH ×6 (17:00)
[2022-09-20 21:22] LABS: Calcium Oxalate Crystals- Ur Few /HPF (None Seen); Specific Gravity 1.018 (1.005-1.030); Urine Bacteria <20 /HPF (<20); Urine Bilirubin NEGATIVE (Negative); Urine Blood 3+ (OVER) (Negative); Urine Clarity Turbid (Clear); Urine Color Yellow (Yellow); Urine Crystals Unidentified Few /HPF (None Seen); Urine Glucose NEGATIVE (Negative); Urine Mucus Slight /HPF (None Seen); Urine Protein 1+ (Negative); Urine RBC >50 /HPF (None Seen); Urine Urobilinogen Normal (Normal); Urine pH 5.5 (5.0-7.0)
[2022-09-20] MEDS: LORazepam 2 MG/ML VIAL IV PRN (22:12)
[2022-09-21] MEDS: ALBUMIN HUMAN 25% 100 ML IV SCH (01:07)
[2022-09-21] MEDS: HYDROMORPHONE HCL 1 MG/ML INJ IV PRN ×5 (02:42→20:06)
[2022-09-21] MEDS: Meropenem 1,000 MG in NA CHLORIDE 0.9% 100 ML IV SCH ×3 (04:10→20:05)
[2022-09-21] MEDS: METOCLOPRAMIDE 10 MG/2mL INJ IV SCH ×3 (04:11→20:06)
[2022-09-21 05:24] LABS: Absolute Lymphocytes (CBC) 2.5 K/uL (0.7-4.9); Hematocrit 21.5 % (36.0-45.0); Lymphocytes % 12.9 % (15.3-44.8); MCV 92.4 fL (80-100); MPV 7.1 fL (7.6-11.3); RBC Red Blood Cell Count 2.32 M/uL (3.86-4.86)
[2022-09-21 05:46] LABS: Albumin 1.9 g/dL (3.4-5.0); Bilirubin Total 0.8 mg/dL (0.2-1.0); Magnesium 2.2 mg/dL (1.6-2.4); Potassium 4.3 mmol/L (3.5-5.1); Protein, Total 5.9 g/dL (6.4-8.2)
[2022-09-21 07:10] LABS: Blood Morphology Comment NOT SEEN (NOT SEEN); Platelet Estimate ADEQ; White Blood Cell Scan OK (OK)
[2022-09-21] MEDS: LORazepam 2 MG/ML VIAL IV PRN ×2 (07:15→18:14)
--- NOTE | 2022-09-21 07:52 | P.PN ---
Subjective Date of Service: 09/21/22 Chief Complaint: Respiratory failure s/p trach ARDS Respiratory failure her little bit more agitated today more tachypneic Review of Systems is unable to be obtained Physical Examination - Vital Signs Temperature: 97.3 F Blood Pressure: 142/78 Pulse: 104 Respirations: 23 Pulse Ox (%): 95 - Physical Exam General: Unresponsive Respiratory: Clear to auscultation bilaterally, Diminished Cardiovascular: No edema, Regular rate/rhythm - Studies Medications List Reviewed: Yes Assessment And Plan - Current Problems (Diagnosis) (1) Respiratory failure Current Visit: No Status: Acute Plan: Respiratory failure patient agitated x-ray consistent with severe ARDS prognosis poor White count is steadily increasing renal function is slightly worse add vancomycin Qualifiers: Chronicity: acute on chronic (2) Iron deficiency anemia Current Visit: Yes Status: Acute Plan: Patient was transfused yesterday and also receiving iron Qualifiers: Iron deficiency anemia type: chronic blood loss Qualified Code(s): D50.0 - Iron deficiency anemia secondary to blood loss (chronic) (3) Atrial fibrillation Current Visit: Yes Status: Acute Plan: History of A. fib abnormal LFTs amiodarone discontinued
--- NOTE | 2022-09-21 08:03 | RAD REPORT ---
EXAM DESCRIPTION: RAD - Chest Single View - 09/21/2022 5:08 am CLINICAL HISTORY: Respiratory failure COMPARISON: Chest Single View dated 09/20/2022; Chest Single View dated 09/19/2022; Chest Single Vie w dated 09/18/2022; Chest Single View dated 09/17/2022 FINDINGS: Lines: Tracheostomy. PICC in similar position Lungs: Rotation of the patient is different on today's exam. Severe bilateral interstitial and airspa ce disease persists. Bowel appears worsened left upper lung, this is probably projectional. Pleural: Small effusions difficult to exclude. Cardiac: Cardiomegaly Mediastinum: Within normal limits. Bones: No acute fractures. Other: None IMPRESSION: Widespread bilateral airspace disease have remains concerning for multifocal pneumonia. Taking into account some differences in projection, probably no significant interval change .
[2022-09-21] MEDS: LEVALBUTEROL 1.25 MG/3 ML NEB NEB PRN (08:58)
[2022-09-21] MEDS: APIXABAN 5 MG TABLET PO SCH ×2 (09:04→20:04)
[2022-09-21] MEDS: METOPROLOL TAR 25 MG TAB PO SCH ×2 (09:04→20:04)
[2022-09-21] MEDS: SOD FERRIC GLUC COMPLX/SUCROSE 125 MG in NA CHLORIDE 0.9% 100 ML IV SCH (09:04)
--- NOTE | 2022-09-21 10:39 | P.PN ---
Nephrology note (S) Pt per reports was tachypnec this AM with RR in the 40-50s, received Ativan and Dilaudid and RR has improved, vent adjusted by Pulm. CXR results noted (O) Vitals reviewed in the EMR General: Other (Connected to vent, NAD) HEENT: Atraumatic, Normocephalic Neck: Supple, Other (Trach) Respiratory: Other (b/l vent BS, reduced at the bases) Cardiovascular: Other (Mildly tachy, mostly regular) Gastrointestinal: Other (Soft, mild distention, mid line incision with wound vac, left side colostomy with liquid stool) Musculoskeletal: Other (no sig edema, shins are non tender) Integumentary: No rashes, No significant lesion Neurological: Lethargic/sleeping post medication Conclusions/Impression: A/P) 1. Stage 1 LEOBARDO in the setting of some relative hypotension, anemia/drop in counts, aldosterone antagonist use, other. Prior LEOBARDO episode earlier in admission. Non oliguric with UOP over 24h > 1000 ml. Prior UA earlier in the mo had shown granular casts then but not on repeat UA but urine is dark and there is unspecified microscopic hematuria. Will monitor azotemia. 2. Given some relative hypotension, marked hypoalbuinemia, other -yesterday did give some intravascular vol in the form of Albumin doses with 25% x 2. BP better today 3. Did slightly increase free water flushes to 150 cc q4h, pt has had some mild hyponatremia, latest Na level stable.. No reports of large ostomy output 4. Did d/c Aldactone currently. 5. Vent management and weaning per Pulm. Wide spread infiltrates persist. Monitor fluid balance, intermittent Lasix pushes as indicated. Zach Tom MD, TRACEY
--- NOTE | 2022-09-21 13:29 | P.PN ---
Subjective Date of Service: 09/21/22 Chief Complaint: Respiratory failure s/p trach ARDS No issues overnight. Vomiting stopped. She is occasionally agitated. Patient is currently on mechanical ventilation-SIMV mode. FiO2 now at 50%. She is tolerating tube feeding at 20 ml per hour. Physical Examination - Vital Signs Temperature: 98.7 F Blood Pressure: 121/55 Pulse: 105 Respirations: 22 Pulse Ox (%): 95 - Studies Medications List Reviewed: Yes Assessment And Plan - Plan Physical exam GEN: Awake, not in acute distress. Neck: Tracheostomy CV: Irregular rhythm, tachycardia, no edema Pulm: Bilateral upper airway transmitted sounds, adequate breath sounds bilaterally ABD: Soft, nondistended, left colostomy, wound VAC on midline surgical wound. Neuro: Awake, obeys commands, no focal motor deficit. Problem List acute hypoxemic respiratory failure secondary to COPD exacerbation Acute on chronic COPD with exacerbation interstitial lung disease, fibrosis h/o Afib, paroxysmal LEOBARDO h/o Epistaxis Hypertension Cardiomyopathy/CHF, diastolic Sepsis/septic shock secondary to sigmoid colon perforation, now s/p colostomy severe protein calorie malnutrition anemia thrombocytopenia acute on chronic COPD exacerbation acute CHF exacerbation, diastolic CT 08/21 - bilateral fibrosis. required mechanical ventilation since surgery. s/p tracheostomy 09/07/22 Patient with baseline respiratory failure. She was difficult to extubate. Patient developed rapid atrial fibrillation and tachypnea on spontaneous breathing. pulm is following; Steroids and lasix held since bowel perforation. Pulmonary-Dr. Canchola recommended tracheostomy and PEG tube. s/p tracheostomy 09/07/22 s/p PEG 09/09/22 Protonix for GI prophylaxis. Patient weaned to trach collar briefly and then back on the vent. Continue weaning to trach collar. Patient with intermittent agitation requiring ativan/dilaudid, and will pull at trach and lines at times minimize psychotropic medications. h/o afib, new diagnosis during last admission; paroxysmal Coreg was initially discontinued due to hypotension Seen by cardiology and patient treated with amiodarone drip, later transitioned to oral amiodarone. Amiodarone now discontinued due to rising LFTs. Continue metoprolol for A. fib rate control. Off Digoxin Abdominal pain/pelvic abscess/sepsis secondary to perforated diverticulum with abscess1 Dr. Tavares performed laparotomy with bowel resection and colostomy. SALVADOR drains in place-no significant drainage. was on empiric merrem and vanc - ID changed to daptomycin on 09/01 to cover for VRE. ID later dc'd daptomycin wound culture grew enterococcus dobhoff placed 09/03. stool output noted since 09/01. s/p PEG 09/09 tube feeds as tolerated. Patient has vomiting intermittently. Titrate PEG tube to a goal of 60 ml per hour. She has some degree of dehydration and restarted on PPN as we wait for PEG tube feeding to reach goal rate. Nephrology is also following and managing LEOBARDO. Free water flushes increased. IV Reglan due to intermittent vomiting. CT 09/13 - ordered due to decreased ostomy output and chance in color no abscess, no obstruction. Currently on meropenem per ID. Anemia acute on chronic, unclear etiology, suspect bone marrow suppression / lab draws, with some dark bloody output last week in ostomy no blood seen in ostomy since 09/04. Gastric residual with coffee-ground irais earance. Endoscopy during PEG tube revealed gastritis. s/p 2 units PRBC transfusion. Hemoglobin has been stable around 7. Continue to monitor CBC continue Protonix Eliquis for A. fib resumed monitor for bleeding. thrombocytopenia improved iron studies shows iron deficiency On IV iron. VTE: Eliquis Code: Full Disposition: Plan is to monitor until she is stable on the vent and then [facility] to LTAC. Time Spent Managing Pts Care (In Minutes): 25
[2022-09-21] MEDS ORDERED: AA 5%/D20W/ELECTROLYTES-TPN 2,000 ML IV SCH (17:00)
--- NOTE | 2022-09-21 17:53 | P.PN ---
Date of Service: 09/21/22 ENT Consultation Patient seen and examined. Was able to tolerate one day on trach collar, but now on vent at 50%. Exam: Trach and sutures intact. Well-formed stoma with mild clear secretions. No bleeding or granuloma detected. Silk sutures removed. Impression: 1. Respiratory failure-- recent tracheostomy-- sutures removed today. Plan: 1. Plan for LTAC soon. 2. Will see as needed.
[2022-09-22] MEDS: HYDROMORPHONE HCL 1 MG/ML INJ IV PRN ×6 (00:15→20:48)
[2022-09-22] MEDS: METOCLOPRAMIDE 10 MG/2mL INJ IV SCH ×3 (03:14→20:35)
[2022-09-22] MEDS: Meropenem 1,000 MG in NA CHLORIDE 0.9% 100 ML IV SCH ×3 (03:15→20:35)
[2022-09-22] MEDS: LORazepam 2 MG/ML VIAL IV PRN (04:20)
[2022-09-22 05:09] LABS: Absolute Lymphocytes (CBC) 3.1 K/uL (0.7-4.9); Hematocrit 21.3 % (36.0-45.0); Lymphocytes % 16.3 % (15.3-44.8); MCV 93.3 fL (80-100); MPV 7.2 fL (7.6-11.3); RBC Red Blood Cell Count 2.28 M/uL (3.86-4.86)
[2022-09-22 05:22] LABS: Albumin 1.6 g/dL (3.4-5.0); Bilirubin Total 0.8 mg/dL (0.2-1.0); Magnesium 2.2 mg/dL (1.6-2.4); Phosphorus 3.9 mg/dL (2.5-4.9); Potassium 4.5 mmol/L (3.5-5.1); Protein, Total 5.7 g/dL (6.4-8.2)
[2022-09-22] MEDS: METOPROLOL TARTRATE 5 MG/5 ML INJ IV PRN (06:31)
[2022-09-22] MEDS: METOPROLOL TAR 25 MG TAB PO SCH ×2 (09:07→20:35)
[2022-09-22] MEDS: APIXABAN 5 MG TABLET PO SCH ×2 (09:07→20:35)
[2022-09-22] MEDS: SOD FERRIC GLUC COMPLX/SUCROSE 125 MG in NA CHLORIDE 0.9% 100 ML IV SCH (09:22)
[2022-09-22] MEDS: VITAL AF 1,000 ML BOT RTH SCH (10:00)
[2022-09-22] MEDS: HYDROMORPHONE HCL 0.5 MG/0.5 ML INJ IV PRN (10:41)
--- NOTE | 2022-09-22 13:00 | P.PN ---
Subjective Date of Service: 09/22/22 Chief Complaint: Respiratory failure s/p trach ARDS No issues overnight. She is occasionally agitated. Patient is currently on mechanical ventilation-SIMV mode. FiO2 at 50%. Tube feeding rate increased to 50 mill per hour which she is tolerating. No recorded fever. Physical Examination - Vital Signs Temperature: 98.4 F Blood Pressure: 91/58 Pulse: 116 Respirations: 32 Pulse Ox (%): 92 - Studies Medications List Reviewed: Yes Assessment And Plan - Plan Physical exam GEN: Awake, not in acute distress. Neck: Tracheostomy CV: Irregular rhythm, tachycardia, no edema Pulm: Bilateral upper airway transmitted sounds, adequate breath sounds bilaterally ABD: Soft, nondistended, left colostomy, wound VAC on midline surgical wound. Neuro: Awake, obeys commands, no focal motor deficit. Problem List acute hypoxemic respiratory failure secondary to COPD exacerbation Acute on chronic COPD with exacerbation interstitial lung disease, fibrosis h/o Afib, paroxysmal LEOBARDO h/o Epistaxis Hypertension Cardiomyopathy/CHF, diastolic Sepsis/septic shock secondary to sigmoid colon perforation, now s/p colostomy severe protein calorie malnutrition anemia thrombocytopenia acute on chronic COPD exacerbation acute CHF exacerbation, diastolic CT 08/21 - bilateral fibrosis. required mechanical ventilation since surgery. s/p tracheostomy 09/07/22 Patient with baseline respiratory failure. She was difficult to extubate. Patient developed rapid atrial fibrillation and tachypnea on spontaneous breathing. pulm is following; Steroids and lasix held since bowel perforation. Pulmonary-Dr. Canchola recommended tracheostomy and PEG tube. s/p tracheostomy 09/07/22. Sutures removed by ENT yesterday. s/p PEG 09/09/22 Protonix for GI prophylaxis. Patient weaned to trach collar briefly and then back on the vent. Continue weaning to trach collar. Patient with intermittent agitation requiring ativan/dilaudid, and will pull at trach and lines at times minimize psychotropic medications. Obtain tracheal aspirate for gram stain and culture given increasing leukocytosis. Antibiotics broadened to meropenem, daptomycin and Diflucan. h/o afib, new diagnosis during last admission; paroxysmal Coreg was initially discontinued due to hypotension Seen by cardiology and patient treated with amiodarone drip, later transitioned to oral amiodarone. Amiodarone now discontinued due to rising LFTs. Continue metoprolol for A. fib rate control. Off Digoxin Abdominal pain/pelvic abscess/sepsis secondary to perforated diverticulum with abscess1 Dr. Tavares performed laparotomy with bowel resection and colostomy. SALVADOR drains in place-no significant drainage. was on empiric merrem and vanc - ID changed to daptomycin on 09/01 to cover for VRE. ID later dc'd daptomycin wound culture grew enterococcus dobhoff placed 09/03. stool output noted since 09/01. s/p PEG 09/09 tube feeds as tolerated. Patient has been vomiting intermittently. Tube feeding rate increased to 50 ml per hour. Discontinue TPN. Nephrology is also following and managing LEOBARDO. Free water flushes increased. IV Reglan due to intermittent vomiting. CT 09/13 - ordered due to decreased ostomy output and chance in color which showed no abscess, no obstruction. Currently on meropenem per ID. ID recommended to add Diflucan and daptomycin due to increasing leukocytosis Anemia acute on chronic, unclear etiology, suspect bone marrow suppression / lab draws, with some dark bloody output last week in ostomy no blood seen in ostomy since 09/04. Gastric residual with coffee-ground appearance. Endoscopy during PEG tube revealed gastritis. s/p 2 units PRBC transfusion. Hemoglobin dropped to 7.0. No evidence of active bleed. Transfuse 1 unit PRBC. continue Protonix Continue monitor for bleeding. thrombocytopenia improved Continue IV iron. VTE: Eliquis Code: Full Disposition: Plan is to monitor until she is stable on the vent and then transfer to LTAC. Time Spent Managing Pts Care (In Minutes): 25
--- NOTE | 2022-09-22 13:54 | PN ---
Subjective: The patient lying in bed. No new acute event. Chart reviewed. Continues to be on vent ilator. Opens eyes spontaneously. Objective: Vital Signs: Temperature 98, pulse 130, respirations 24, blood pressure 91/58. Lungs: Basal crackles. Heart: S1, S2. Regular. Abdomen: Soft, nontender. Bowel sounds present. Extremities: No edema. Laboratory Data: WBC 19.3, hemoglobin 7, platelets are 310. Chemistry shows BUN of 56, creatinine 1 .2, albumin level is 1.6. Micro data: The patient is getting TPN and also getting PEG tube feeding. Ontiveros catheter in place. Assessment And Plan: Respiratory failure, status post surgical evacuation of abdominal pelvic absces s, status post colonic perforation, anemia of chronic disease. The patient will be receiving transfu regis. Renal insufficiency. Severe protein-calorie malnourishment. Continue meropenem. Consider st opping TPN. We will repeat blood cultures. We will add daptomycin. Follow the patient as needed. NF/MODL Voice ID: [id number] Report ID: [id number]
[2022-09-22] MEDS: FLUCONAZOLE 200mg IVPB 200 MG/100 ML BAG IV SCH (14:30)
[2022-09-22] MEDS: DAPTOmycin 500 MG in NA CHLORIDE 0.9% 100 ML IVPB SCH (14:30)
[2022-09-23] MEDS: HYDROMORPHONE HCL 1 MG/ML INJ IV PRN ×6 (01:38→20:19)
[2022-09-23] MEDS: LORazepam 2 MG/ML VIAL IV PRN ×3 (01:47→18:31)
[2022-09-23] MEDS: Meropenem 1,000 MG in NA CHLORIDE 0.9% 100 ML IV SCH ×3 (04:00→20:15)
[2022-09-23] MEDS: METOCLOPRAMIDE 10 MG/2mL INJ IV SCH ×3 (04:00→20:15)
[2022-09-23 04:32] LABS: Absolute Lymphocytes (CBC) 3.1 K/uL (0.7-4.9); Hematocrit 24.8 % (36.0-45.0); Lymphocytes % 16.7 % (15.3-44.8); MCV 90.2 fL (80-100); MPV 7.4 fL (7.6-11.3); RBC Red Blood Cell Count 2.75 M/uL (3.86-4.86)
[2022-09-23 04:44] LABS: Albumin 1.5 g/dL (3.4-5.0); Bilirubin Total 0.8 mg/dL (0.2-1.0); Potassium 4.8 mmol/L (3.5-5.1); Protein, Total 5.8 g/dL (6.4-8.2)
[2022-09-23] MEDS: METOPROLOL TAR 25 MG TAB PO SCH ×2 (08:35→09:00)
[2022-09-23] MEDS: APIXABAN 5 MG TABLET PO SCH ×2 (08:36→20:16)
[2022-09-23] MEDS: SOD FERRIC GLUC COMPLX/SUCROSE 125 MG in NA CHLORIDE 0.9% 100 ML IV SCH (09:16)
[2022-09-23] MEDS: SOTALOL HCL 80 MG TAB PO SCH ×2 (09:20→17:49)
--- NOTE | 2022-09-23 11:43 | P.PN ---
Subjective Date of Service: 09/23/22 Chief Complaint: Respiratory failure s/p trach ARDS No issues overnight. She is more interactive today, Patient is currently on mechanical ventilation-SIMV mode. FiO2 at 50%. No recorded fever. Leukocytosis trending down slightly. Physical Examination - Vital Signs Temperature: 98.8 F Blood Pressure: 85/48 Pulse: 98 Respirations: 36 Pulse Ox (%): 94 - Studies Medications List Reviewed: Yes Assessment And Plan - Plan Physical exam GEN: Awake, not in acute distress. Neck: Tracheostomy CV: Irregular rhythm, tachycardia, no edema Pulm: Bilateral upper airway transmitted sounds, adequate breath sounds dot aterally ABD: Soft, nondistended, left colostomy, wound VAC on midline surgical wound. Neuro: Awake, obeys commands, no focal motor deficit. Problem List acute hypoxemic respiratory failure secondary to COPD exacerbation Acute on chronic COPD with exacerbation interstitial lung disease, fibrosis h/o Afib, paroxysmal LEOBARDO h/o Epistaxis Hypertension Cardiomyopathy/CHF, diastolic Sepsis/septic shock secondary to sigmoid colon perforation, now s/p colostomy severe protein calorie malnutrition anemia thrombocytopenia acute on chronic COPD exacerbation acute CHF exacerbation, diastolic CT 08/21 - bilateral fibrosis. required mechanical ventilation since surgery. s/p tracheostomy 09/07/22 Patient with baseline respiratory failure. She was difficult to extubate. Patient developed rapid atrial fibrillation and tachypnea on spontaneous breathing. pulm is following; Steroids and lasix held since bowel perforation. Pulmonary-Dr. Canchola recommended tracheostomy and PEG tube. s/p tracheostomy 09/07/22. Sutures removed by ENT yesterday. s/p PEG 09/09/22 Protonix for GI prophylaxis. Patient weaned to trach collar briefly and then back on the vent. Continue weaning to trach collar. Patient with intermittent agitation requiring ativan/dilaudid, and will pull at trach and lines at times minimize psychotropic medications. Sputum culture is pending Antibiotics broadened to meropenem, daptomycin and Diflucan per infectious disease recommendation. h/o afib, new diagnosis during last admission; paroxysmal Coreg was initially discontinued due to hypotension Seen by cardiology and patient treated with amiodarone drip, later transitioned to oral amiodarone. Amiodarone discontinued due to rising LFTs. Rapid A. fib has been uncontrolled on metoprolol. Pulmonary ordered sotalol 40 mg twice daily Off Digoxin Abdominal pain/pelvic abscess/sepsis secondary to perforated diverticulum with abscess1 Dr. Tavares performed laparotomy with bowel resection and colostomy. SALVADOR drains in place-no significant drainage. was on empiric merrem and vanc - ID changed to daptomycin on 09/01 to cover for VRE. ID later dc'd daptomycin wound culture grew enterococcus dobhoff placed 09/03. stool output noted since 09/01. s/p PEG 09/09 tube feeds as tolerated. Patient has been vomiting intermittently. Tube feeding rate increased to 50 ml per hour. Discontinue TPN. Nephrology is also following and managing LEOBARDO. Free water flushes increased. IV Reglan due to intermittent vomiting. CT 09/13 - ordered due to decreased ostomy output and chance in color which showed no abscess, no obstruction. Currently on meropenem per ID. ID recommended to add Diflucan and daptomycin due to increasing leukocytosis Anemia acute on chronic, unclear etiology, suspect bone marrow suppression / lab draws, with some dark bloody output last week in ostomy no blood seen in ostomy since 09/04. Gastric residual with coffee-ground appearance. Endoscopy during PEG tube revealed gastritis. s/p 3 units PRBC transfusion. continue Protonix Continue monitor for bleeding. thrombocytopenia improved Continue IV iron. VTE: Eliquis Code: Full Disposition: Plan is to monitor until she is stable on the vent and then transfer to LTAC. Time Spent Managing Pts Care (In Minutes): 29
--- NOTE | 2022-09-23 12:21 | P.PN ---
Nephrology note (S) Pt remains on vent, off TPN as TF now at goal, no other acute events noted (O) Vitals reviewed in the EMR General: Other (Connected to vent, NAD) HEENT: Atraumatic, Normocephalic Neck: Supple, Other (Trach) Respiratory: Other (b/l vent BS, reduced at the bases) Cardiovascular: Other (Mildly tachy, mostly regular) Gastrointestinal: Other (Soft, mild distention, mid line incision with wound vac, left side colostomy with liquid stool) Musculoskeletal: Other (1+ b/l LE edema, shins are non tender, SCDs present) Integumentary: No rashes, No significant lesion Neurological: Lethargic/sleeping, does not awaken to physical stimuli Conclusions/Impression: A/P) 1. Stage 1 LEOBARDO in the setting of some relative hypotension, anemia/drop in counts, aldosterone antagonist use, other. Prior LEOBARDO episode earlier in admission. Non oliguric with UOP over 24h > 1000 ml. Prior UA earlier in the mo had shown granular casts then but not on repeat UA but urine is dark and there is unspecified microscopic hematuria. Will monitor azotemia in the setting of TF 2. Given some relative hypotension, marked hypoalbuinemia, other -earlier last week did give some intravascular vol in the form of Albumin doses with 25% x 2. BP acceptable currently 3. Did slightly increase free water flushes to 150 cc q4h, pt has had some mild hyponatremia, latest Na level stable. No reports of large ostomy output 4. Did d/c Aldactone but with positive fluid balance note, will place on gentle scheduled loop diuretic to mobilize 3rd space edema. 5. Vent management and weaning per Pulm. Wide spread infiltrates persist. Zach Tom MD, [facility]
[2022-09-23] MEDS: FUROSEMIDE 20 MG/ 2ML VIAL IV SCH (13:22)
[2022-09-23] MEDS: DAPTOmycin 500 MG in NA CHLORIDE 0.9% 100 ML IVPB SCH (14:04)
[2022-09-23] MEDS: FLUCONAZOLE 200mg IVPB 200 MG/100 ML BAG IV SCH (14:04)
--- NOTE | 2022-09-23 23:23 | PN ---
Subjective: The patient lying in bed, continued to be on ventilator, opens eyes spontaneously. No a cute event. Objective: Vital Signs: Temperature 98, pulse 100, respirations 30, blood pressure 115/64. Lungs: Basal crackles. Heart: S1, S2. Regular. Abdomen: Soft, nontender. Bowel sounds present. Extremities: No edema. Laboratory Data: WBC 18.5, hemoglobin 8.2, platelets 280, BUN 58, creatinine 1.2, albumin level 1.2. Assessment And Plan: Respiratory failure; leukocytosis; pelvic abscess, status post surgical evacuat ion; anemia of chronic disease; renal insufficiency; severe protein-calorie malnourishment. Continue current treatment. We will follow the patient as needed. NF/MODL Voice ID: [id number] Report ID: [id number]
[2022-09-24] MEDS: LORazepam 2 MG/ML VIAL IV PRN (00:30)
[2022-09-24] MEDS: HYDROMORPHONE HCL 1 MG/ML INJ IV PRN ×3 (01:00→14:57)
[2022-09-24] MEDS: Meropenem 1,000 MG in NA CHLORIDE 0.9% 100 ML IV SCH ×3 (04:58→20:30)
[2022-09-24 04:59] LABS: Hematocrit 23.2 % (36.0-45.0); Lymphocytes % 13.6 % (15.3-44.8); MCV 91.5 fL (80-100); MPV 8.1 fL (7.6-11.3); RBC Red Blood Cell Count 2.54 M/uL (3.86-4.86)
[2022-09-24] MEDS: METOCLOPRAMIDE 10 MG/2mL INJ IV SCH ×3 (04:59→20:31)
[2022-09-24] MEDS: SOTALOL HCL 80 MG TAB PO SCH ×2 (04:59→17:47)
[2022-09-24 05:21] LABS: Albumin 1.3 g/dL (3.4-5.0); Bilirubin Total 0.7 mg/dL (0.2-1.0); Potassium 4.8 mmol/L (3.5-5.1); Protein, Total 5.6 g/dL (6.4-8.2)
[2022-09-24] MEDS: FUROSEMIDE 20 MG/ 2ML VIAL IV SCH (08:44)
[2022-09-24] MEDS: SOD FERRIC GLUC COMPLX/SUCROSE 125 MG in NA CHLORIDE 0.9% 100 ML IV SCH (08:45)
[2022-09-24] MEDS: APIXABAN 5 MG TABLET PO SCH ×2 (08:47→20:31)
[2022-09-24] MEDS: HYDROMORPHONE HCL 0.5 MG/0.5 ML INJ IV PRN ×2 (11:50→20:31)
[2022-09-24] MEDS: FLUCONAZOLE 200mg IVPB 200 MG/100 ML BAG IV SCH (13:32)
--- NOTE | 2022-09-24 13:42 | P.PN ---
Subjective Date of Service: 09/24/22 Chief Complaint: Respiratory failure s/p trach ARDS No issues overnight. No major changes from yesterday. Patient tolerating mechanical ventilation-SIMV mode. FiO2 at 50%. No recorded fever. Leukocytosis continues to trend down. Physical Examination - Vital Signs Temperature: 96.6 F Blood Pressure: 146/92 Pulse: 98 Respirations: 33 Pulse Ox (%): 94 - Studies Medications List Reviewed: Yes Assessment And Plan - Plan Physical exam GEN: Somnolent but easily arousable, not in acute distress. Neck: Tracheostomy CV: Irregular rhythm, tachycardia, no edema Pulm: Bilateral upper airway transmitted sounds, adequate breath sounds bilaterally ABD: Soft, nondistended, left colostomy, wound VAC on midline surgical wound. Neuro: Awake, obeys commands, no focal motor deficit. Problem List acute hypoxemic respiratory failure secondary to COPD exacerbation Acute on chronic COPD with exacerbation interstitial lung disease, fibrosis h/o Afib, paroxysmal LEOBARDO h/o Epistaxis Hypertension Cardiomyopathy/CHF, diastolic Sepsis/septic shock secondary to sigmoid colon perforation, now s/p colostomy severe protein calorie malnutrition anemia thrombocytopenia acute on chronic COPD exacerbation acute CHF exacerbation, diastolic CT 08/21 - bilateral fibrosis. required mechanical ventilation since surgery. s/p tracheostomy 09/07/22 Patient with baseline respiratory failure. She was difficult to extubate. Patient developed rapid atrial fibrillation and tachypnea on spontaneous breathing. pulm is following; Steroids and lasix held since bowel perforation. Pulmonary-Dr. Canchola recommended tracheostomy and PEG tube. s/p tracheostomy 09/07/22. Sutures removed by ENT yesterday. s/p PEG 09/09/22 Protonix for GI prophylaxis. Patient weaned to trach collar briefly and then back on the vent. Continue weaning to trach collar. Patient with intermittent agitation requiring ativan/dilaudid, and will pull at trach and lines at times minimize psychotropic medications. Sputum culture is pending Antibiotics broadened to meropenem, daptomycin and Diflucan per infectious disease recommendation. Leukocytosis is trending down with the current antibiotics. Patient currently tolerating SIMV. Recommending a trial of spontaneous breathing. h/o afib, new diagnosis during last admission; paroxysmal Coreg was initially discontinued due to hypotension Seen by cardiology and patient treated with amiodarone drip, later transitioned to oral amiodarone. Amiodarone discontinued due to rising LFTs. Rapid A. fib has been uncontrolled on metoprolol. Pulmonary ordered sotalol 40 mg twice daily to replace metoprolol. She is off Digoxin Abdominal pain/pelvic abscess/sepsis secondary to perforated diverticulum with abscess1 Dr. Tavares performed laparotomy with bowel resection and colostomy. SALVADOR drains in place-no significant drainage. was on empiric merrem and vanc - ID changed to daptomycin on 09/01 to cover for VRE. ID later dc'd daptomycin wound culture grew enterococcus dobhoff placed 09/03. stool output noted since 09/01. s/p PEG 09/09 tube feeds as tolerated. Patient has been vomiting intermittently. Tube fee ding rate increased to 50 ml per hour. Discontinue TPN. Nephrology is also following and managing LEOBARDO. Free water flushes increased. IV Reglan due to intermittent vomiting. CT 09/13 - ordered due to decreased ostomy output and chance in color which showed no abscess, no obstruction. Currently on meropenem per ID. ID recommended to add Diflucan and daptomycin due to increasing leukocytosis Anemia acute on chronic, unclear etiology, suspect bone marrow suppression / lab draws, with some dark bloody output last week in ostomy no blood seen in ostomy since 09/04. Gastric residual with coffee-ground appearance. Endoscopy during PEG tube revealed gastritis. s/p 3 units PRBC transfusion. continue Protonix Continue monitor for bleeding. thrombocytopenia improved Continue IV iron. Transfuse as needed for hemoglobin less than 7. VTE: Eliquis Code: Full Disposition: She is currently stable on the vent. Social service to assist with arrangement for LTAC placement. Time Spent Managing Pts Care (In Minutes): 29
[2022-09-24] MEDS: DAPTOmycin 500 MG in NA CHLORIDE 0.9% 100 ML IVPB SCH (14:00)
[2022-09-24 15:19] LABS: Magnesium 2.1 mg/dL (1.6-2.4); Phosphorus 3.5 mg/dL (2.5-4.9)
--- NOTE | 2022-09-24 17:48 | RAD REPORT ---
EXAM DESCRIPTION: RAD - Chest Single View - 09/24/2022 5:19 am CLINICAL HISTORY: PICC placement COMPARISON: Portable 09/21/2022 TECHNIQUE: AP portable chest image was obtained 09/24/2022 5:19 am . FINDINGS: Trach tube is in place similarly positioned to the prior examination. Left subclavian pace maker is in place. Tip is in the proximal SVC. Lung volumes are low. Interstitial and alveolar opacities are present but have improved from the prio r examination. Cardiac silhouette remains prominent. Comparison is difficult due to the pronounced ro tation on the prior examination. Upper lobe vasculature not outside of normal range. No measurable pleural effusion and no pneumothorax. No acute bony abnormality seen. No acute aortic findings suspected. IMPRESSION: Left subclavian PICC line in place with the tip in the proximal SVC. Bilateral interstitial and alveolar opacities are significant but have shown improvement from the Dec ember imaging. Final report was delayed due to technical issues. Images were sent for overnight [employer] interpreta tion but no report can be found.
[2022-09-25] MEDS: LORazepam 2 MG/ML VIAL IV PRN ×3 (00:47→22:14)
[2022-09-25] MEDS: VITAL AF 1,000 ML BOT RTH SCH ×2 (01:25→21:39)
[2022-09-25] MEDS: HYDROMORPHONE HCL 1 MG/ML INJ IV PRN ×4 (01:39→20:33)
[2022-09-25] MEDS: Meropenem 1,000 MG in NA CHLORIDE 0.9% 100 ML IV SCH ×3 (04:02→20:31)
[2022-09-25] MEDS: METOCLOPRAMIDE 10 MG/2mL INJ IV SCH ×3 (04:03→20:31)
[2022-09-25 04:46] LABS: Absolute Lymphocytes (CBC) 2.1 K/uL (0.7-4.9); Hematocrit 23.3 % (36.0-45.0); Lymphocytes % 13.5 % (15.3-44.8); MCV 91.7 fL (80-100); RBC Red Blood Cell Count 2.54 M/uL (3.86-4.86)
[2022-09-25 05:10] LABS: Albumin 1.4 g/dL (3.4-5.0); Phosphorus 3.8 mg/dL (2.5-4.9); Potassium 4.6 mmol/L (3.5-5.1)
[2022-09-25] MEDS: SOTALOL HCL 80 MG TAB PO SCH ×3 (05:59→18:09)
[2022-09-25 06:59] LABS: Anisocytosis 1+; Blood Morphology Comment NOTED (NOT SEEN); Hypochromasia 1+; Macrocytosis 1+; Platelet Estimate ADEQ; Platelets, Giant OCCASIONAL
[2022-09-25] MEDS: SOD FERRIC GLUC COMPLX/SUCROSE 125 MG in NA CHLORIDE 0.9% 100 ML IV SCH (09:07)
[2022-09-25] MEDS: FUROSEMIDE 20 MG/ 2ML VIAL IV SCH ×2 (09:08→20:32)
[2022-09-25] MEDS: APIXABAN 5 MG TABLET PO SCH ×2 (09:08→20:32)
--- NOTE | 2022-09-25 10:51 | P.PN ---
Subjective Date of Service: 09/25/22 Chief Complaint: Respiratory failure s/p trach ARDS No major changes. Patient is stable on mechanical ventilation-SIMV mode, FiO2 at 50%. Leukocytosis continues to trend down. Physical Examination - Vital Signs Temperature: 97.3 F Blood Pressure: 114/53 Pulse: 90 Respirations: 33 Pulse Ox (%): 98 - Studies Medications List Reviewed: Yes Assessment And Plan - Plan Physical exam GEN: Somnolent but easily arousable, not in acute distress. Neck: Tracheostomy-vent CV: Irregular rhythm, tachycardia, no edema Pulm: Bilateral upper airway transmitted sounds, adequate breath sounds bilaterally ABD: Soft, nondistended, left colostomy, wound VAC on midline surgical wound. Neuro: Somnolent, easily arousable obeys commands, no focal motor deficit. Problem List acute hypoxemic respiratory failure secondary to COPD exacerbation Acute on chronic COPD with exacerbation interstitial lung disease, fibrosis h/o Afib, paroxysmal LEOBARDO h/o Epistaxis Hypertension Cardiomyopathy/CHF, diastolic Sepsis/septic shock secondary to sigmoid colon perforation, now s/p colostomy severe protein calorie malnutrition anemia thrombocytopenia acute on chronic COPD exacerbation acute CHF exacerbation, diastolic CT 08/21 - bilateral fibrosis. On mechanical ventilation since surgery. s/p tracheostomy 09/07/22 Patient with baseline respiratory failure. She was difficult to extubate. Patient developed rapid atrial fibrillation and tachypnea on spontaneous breathing. pulm is following; Steroids and lasix held since bowel perforation. Pulmonary-Dr. Canchola recommended tracheostomy and PEG tube. s/p tracheostomy 09/07/22. Sutures removed by ENT. s/p PEG 09/09/22 Protonix for GI prophylaxis. Patient weaned to trach collar briefly and then back on the vent. Continue weaning to trach collar. Patient with intermittent agitation requiring ativan/dilaudid, and will pull at trach and lines at times minimize psychotropic medications. Multiple sputum culture: Normal respiratory ketan Antibiotics broadened to meropenem, daptomycin and Diflucan per infectious disease recommendation. Leukocytosis is trended down with the current antibiotics. Patient tolerated SIMV and 50% FiO2 for several days. h/o afib, paroxysmal Coreg was initially discontinued due to hypotension Seen by cardiology and patient treated with amiodarone drip, later t ransitioned to oral amiodarone. Amiodarone discontinued due to rising LFTs. Rapid A. fib was uncontrolled on metoprolol. Pulmonary ordered sotalol 40 mg twice daily to replace metoprolol. She is off Digoxin Abdominal pain/pelvic abscess/sepsis secondary to perforated diverticulum with abscess1 Dr. Tavares performed laparotomy with bowel resection and colostomy. SALVADOR drains in place-no significant drainage. was on empiric merrem and vanc - ID changed to daptomycin on 09/01 to cover for VRE. ID later dc'd daptomycin wound culture grew enterococcus dobhoff placed 09/03. stool output noted since 09/01. s/p PEG 09/09 tube feeds as tolerated. Patient has been vomiting intermittently. Tube feeding rate at goal at 60 ml per hour. Off TPN. IV Reglan due to intermittent vomiting. CT 09/13 - ordered due to decreased ostomy output and chance in color which showed no abscess, no obstruction. Currently on meropenem per ID. ID recommended to add Diflucan and daptomycin due to increasing leukocytosis LEOBARDO: Nephrology is also following and managing LEOBARDO. Free water flushes increased. Serum creatinine is trending down. Anemia acute on chronic, unclear etiology, suspect bone marrow suppression / lab draws, with some dark bloody output last week in ostomy no blood seen in ostomy since 09/04. Gastric residual with coffee-ground appearance. Endoscopy during PEG tube revealed gastritis. s/p 3 units PRBC transfusion. continue Protonix Continue monitor for bleeding. thrombocytopenia improved Continue IV iron. Hemoglobin has been stable Transfuse as needed for hemoglobin less than 7. VTE: Eliquis Code: Full Disposition: She is currently stable on the [facility]. Social service to assist with arrangement for LTAC placement.
--- NOTE | 2022-09-25 11:19 | P.PN ---
Date of Service: 09/25/22 Vital Signs Temp Pulse Resp BP Pulse Ox 97.3 F 90 33 H 114/53 L 98 09/25/22 10:55 09/25/22 10:55 09/25/22 10:55 09/25/22 10:55 09/25/22 10:55 Medications Apixaban (Apixaban 5 Mg Tablet) 5 mg PO BID [facility] Last Admin: 09/25/22 09:08 Dose: 5 mg Furosemide (Furosemide 20 Mg/ 2ml Vial) 20 mg IV DAILY [facility] Last Admin: 09/25/22 09:08 Dose: 20 mg Hydromorphone HCl (Hydromorphone Hcl 0.5 Mg/0.5 Ml Inj) 0.5 mg IV Q3H PRN PRN Reason: Pain scale 5-7 (Moderate) Last Admin: 09/24/22 20:31 Dose: 0.5 mg Hydromorphone HCl (Hydromorphone Hcl 1 Mg/Ml Inj) 1 mg IV Q3H PRN PRN Reason: Pain scale 8-10 (Severe) Last Admin: 09/25/22 01:39 Dose: 1 mg Sodium Chloride (Sodium Chloride) 250 mls @ 0 mls/hr IV .Q0M [facility] Last Admin: 09/15/22 17:30 Dose: 250 mls Meropenem 1,000 mg/ Sodium (Chloride) 100 mls @ 200 mls/hr IV Q8H [facility] Last Admin: 09/25/22 04:02 Dose: 100 mls Ferric Sodium Gluconate Complex 125 mg/ Sodium Chloride 110 mls @ 100 mls/hr IV DAILY [facility] Stop: 09/27/22 10:05 Last Admin: 09/25/22 09:07 Dose: 110 mls Daptomycin 500 mg/ Sodium (Chloride) 100 mls @ 200 mls/hr IVPB Q24H [facility]; Protocol Last Admin: 09/24/22 14:00 Dose: 100 mls Fluconazole (Diflucan 200 Mg/100 Ml Ivpb (Premix)) 200 mg in 100 mls @ 100 mls/hr IV Q24H [facility]; Protocol Last Admin: 09/24/22 13:32 Dose: 100 mls Levalbuterol HCl (Levalbuterol 1.25 Mg/3 Ml Neb) 1.25 mg NEB [id number] PRN PRN Reason: WHEEZING Last Admin: 09/21/22 08:58 Dose: 1.25 mg Lorazepam (Lorazepam 2 Mg/Ml Vial) 2 mg IV Q6H PRN PRN Reason: AGITATION Last Admin: 09/25/22 11:05 Dose: 2 mg Metoclopramide HCl (Metoclopramide 10 Mg/2ml Inj) 10 mg IV Q8H [facility] Last Admin: 09/25/22 04:03 Dose: 10 mg Metoprolol Tartrate (Metoprolol Tartrate 5 Mg/5 Ml Inj) 5 mg IV Q4H PRN PRN Reason: heart rate Last Admin: 09/22/22 06:31 Dose: 5 mg Nutritional Formula (Vital Af 1,000 Ml Bot) 0 ml RTH CONT [facility] Last Admin: 09/25/22 01:25 Dose: 1,000 ml Ondansetron HCl (Ondansetron 4 Mg/2 Ml Vial) 4 mg IV Q6H PRN PRN Reason: NAUSEA / VOMITING Last Admin: 09/19/22 04:20 Dose: 4 mg Sodium Chloride (Flush Normal Saline 10 Ml) 10 ml IV BID [facility] Last Admin: 09/25/22 09:08 Dose: 10 ml Sodium Chloride (Sodium Chloride 0.9% 10ml Inj) 10 ml IV UD PRN PRN Reason: Diluant Sotalol HCl (Sotalol Hcl 80 Mg Tab) 40 mg PO BID 6AM 6PM [facility] Last Admin: 09/25/22 05:59 Dose: 40 mg Sterile Water (Water For Inj,Sterile 10 Ml) 1.2 ml IM UD PRN PRN Reason: DILUTION OF MED Ziprasidone (Ziprasidone Mesyla 20 Mg/Vial) 10 mg IM Q6H PRN PRN Reason: AGITATION Microbiology Results 08/12/22 14:02 Blood - Blood Aerobic Blood Culture - Final No growth in 5 days. 08/12/22 14:02 Blood - Blood Anaerobic Blood Culture - Final No growth in 5 days. 08/12/22 12:44 Blood - Blood Aerobic Blood Culture - Final No growth in 5 days. 08/12/22 12:44 Blood - Blood Anaerobic Blood Culture - Final No growth in 5 days. Assessment/ Plan: Nephrology No dyspnea No chest pain Limited IH/ ROS due to mental status No acute events overnight Vitals, medications, blood work and imaging reviewed in the chart. NAD. NCAT. MMM. Neck supple. Normal respiratory effort. RRR. Abd ND. No C/C. LE Edema 2+. No rash. AAO. Normal speech. Trach Weston dark Stage I LEOBARDO, improved CKD II -No NSAIDs Hyponatremia, improved -Continue Lasix Anasarca -Increase Lasix 20mg IV q12 Severe protein malnutrition with decreased functional ability Hypoalbuminemia -Continue TF Anemia in chronic illness -Transfuse PRBC PRN Chronic hypoxic respiratory failure -Trach care -Continue ventilatory support
--- NOTE | 2022-09-25 12:47 | PN ---
Subjective: The patient lying in bed, opens eyes spontaneously. No other acute events. Continued t o be vent dependent. Objective: Vital Signs: Temperature 97, pulse 90, respiration 33, blood pressure 114/53. Lungs: Basal crackles. Heart: S1, S2. Regular. Abdomen: Soft, nontender. Bowel sounds present. Extremity: No edema. Laboratory Data: WBC 14.4, hemoglobin 7.7, platelets are 256. Chemistry shows BUN of 61, creatinine 1.1. Assessment And Plan: 1.Respiratory failure, pneumonitis versus pulmonary edema. 2.Leukocytosis, improving. Continue current empiric treatment. We will consider stopping Diflucan. 3.Anemia of chronic disease, renal insufficiency, severe protein-calorie malnourishment, abdominal a bscess, status post colonic perforation. We will follow the patient closely. Continue supportive ca re and current treatment. Prognosis is guarded. NF/MODL Voice ID: [id number] Report ID: [id number]
[2022-09-25] MEDS: DAPTOmycin 500 MG in NA CHLORIDE 0.9% 100 ML IVPB SCH (13:41)
[2022-09-25] MEDS: FLUCONAZOLE 200mg IVPB 200 MG/100 ML BAG IV SCH (13:41)
--- NOTE | 2022-09-25 18:23 | P.PN ---
Date of Service: 09/26/22 Subjective: no acute events overnight ROS: full ROS limited due to patient's mentation / fatigue Physical Exam: Gen: arousable, answers some questions HEENT: tracheostomy, sclera anicteric, normal conjunctiva CV: sinus tachycardia, 1-2+ b/l pedal edema Pulm: non-labored, tachypneic, s/p tracheostomy Abd: soft, non-distended, colostomy in place with stool; wound vac in place Neuro: moves extremities PEG in place vitals reviewed Problem List acute hypoxemic respiratory failure secondary to COPD exacerbation Acute on chronic COPD with exacerbation interstitial lung disease, fibrosis h/o Afib, paroxysmal LEOBARDO h/o Epistaxis Hypertension Cardiomyopathy/CHF, diastolic Sepsis/septic shock secondary to sigmoid colon perforation, now s/p colostomy severe protein calorie malnutrition anemia thrombocytopenia acute on chronic COPD exacerbation acute CHF exacerbation, diastolic CT 08/21 - bilateral fibrosis. On mechanical ventilation since surgery. s/p tracheostomy 09/07/22 Patient with baseline respiratory failure. She was difficult to extubate. Patient developed rapid atrial fibrillation and tachypnea on spontaneous breathing. pulm is following; Steroids and lasix held since bowel perforation. Pulmonary-Dr. Canchola recommended tracheostomy and PEG tube. s/p tracheostomy 09/07/22. Sutures removed by ENT. s/p PEG 09/09/22 Protonix for GI prophylaxis. Patient weaned to trach collar briefly and then back on the vent. Patient with intermittent agitation requiring ativan/dilaudid, and will pull at trach and lines at times minimize psychotropic medications. Multiple sputum culture: Normal respiratory ketan Antibiotics broadened to meropenem, daptomycin and Diflucan per infectious disease recommendation. Leukocytosis is trended down with the current antibiotics. Patient tolerated SIMV and 50% FiO2 for several days. h/o afib, paroxysmal Coreg was initially discontinued due to hypotension Seen by cardiology and patient treated with amiodarone drip, later transitioned to oral amiodarone. Amiodarone discontinued due to rising LFTs. Rapid A. fib was uncontrolled on metoprolol. Pulmonary ordered sotalol 40 mg twice daily to replace metoprolol. She is off Dig Abdominal pain/pelvic abscess/sepsis secondary to perforated diverticulum with abscess Dr. Tavares performed laparotomy with bowel resection and colostomy was on empiric merrem and vanc - ID started daptomycin on 09/01 to cover for VRE; continues on merrem/daptomycin wound culture grew enterococcus s/p PEG 09/09; tube feeds as tolerated - @goal of 60ml/hr, off TPN On IV Reglan per GI for intermittent vomiting CT 09/13 - ordered due to decreased ostomy output and chance in color no abscess, no obstruction LEOBARDO Nephrology is also following and managing LEOBARDO. Free water flushes increased. Serum creatinine is trending down. anemia acute on chronic, unclear etiology, suspect bone marrow suppression / lab draws, with some dark bloody output initially from ostomy no blood seen in ostomy since 09/04. Endoscopy during PEG tube revealed gastritis. s/p 3 unit PRBC transfusion. continue IV iron continue Protonix initially was not on full anticoagulation for A. fib given recurrent drop in hemoglobin and thrombocytopenia, eliquis started 09/16 thrombocytopenia improved Hemoglobin has been stable Transfuse as needed for hemoglobin less than 7. Monitor and optimize electrolytes. VTE: Eliquis Code: Full Disposition: LTAC once accepted Time Spent Managing Pts Care (In Minutes): 25
[2022-09-26 04:51] LABS: Absolute Lymphocytes (CBC) 1.8 K/uL (0.7-4.9); Hematocrit 23.4 % (36.0-45.0); Lymphocytes % 13.4 % (15.3-44.8); MCV 93.3 fL (80-100); MPV 8.2 fL (7.6-11.3); RBC Red Blood Cell Count 2.51 M/uL (3.86-4.86)
[2022-09-26 05:22] LABS: Albumin 1.4 g/dL (3.4-5.0); Potassium 4.6 mmol/L (3.5-5.1)
[2022-09-26] MEDS: SOTALOL HCL 80 MG TAB PO SCH ×2 (05:36→18:08)
[2022-09-26] MEDS: METOCLOPRAMIDE 10 MG/2mL INJ IV SCH ×3 (05:36→20:16)
[2022-09-26] MEDS: Meropenem 1,000 MG in NA CHLORIDE 0.9% 100 ML IV SCH ×3 (05:36→20:15)
[2022-09-26] MEDS: FUROSEMIDE 20 MG/ 2ML VIAL IV SCH ×2 (09:39→20:16)
[2022-09-26] MEDS: SOD FERRIC GLUC COMPLX/SUCROSE 125 MG in NA CHLORIDE 0.9% 100 ML IV SCH (09:40)
[2022-09-26] MEDS: HYDROMORPHONE HCL 1 MG/ML INJ IV PRN ×2 (09:40→18:08)
[2022-09-26] MEDS: APIXABAN 5 MG TABLET PO SCH ×2 (09:41→20:17)
--- NOTE | 2022-09-26 09:49 | P.PN ---
Subjective Date of Service: 09/26/22 Chief Complaint: Respiratory failure s/p trach ARDS Patient lying in bed with trach support with no cardiopulmonary distress. Physical Examination - Vital Signs Temperature: 97.6 F Blood Pressure: 156/76 Pulse: 103 Respirations: 30 Pulse Ox (%): 100 - Physical Exam Respiratory: Crackles/rales Cardiovascular: Normal S1 S2 Gastrointestinal: Hypoactive, Other (Colostomy LLQ) Musculoskeletal: Swelling (Bilateral feet 3+ edema) Urinary: Ontiveros catheter (urine yellow and clear) Assessment And Plan - Current Problems (Diagnosis) (1) Abdominal pain/pelvic abscess/sepsis sec Current Visit: Yes Status: Acute Plan: Dr. Tavares performed laparotomy with bowel resection and colostomy. 08/27 Wound culture positive with Enterococcus Faecalis PEG placement 09/09: tube feeds as tolerated. CT 09/13 - ordered due to decreased ostomy output and chance in color which showed no abscess, no obstruction. Currently on Meropenem, Diflucan and Daptomycin due to increasing leukocytosis. Will d/c Diflucan and continue Meropenem and Daptomycin. Can stop both IV when WBC back to normal (2) Respiratory failure, pneumonitis vs pul Current Visit: Yes Status: Acute Plan: Continuous on Vent support (3) Leukocytosis Current Visit: Yes Status: Acute Plan: WBC 13.2, trending down. (4) Anemia of chronic disease Current Visit: Yes Status: Acute Plan: Hgb 7.6. keep monitoring the trend (5) Renal insufficiency Current Visit: Yes Status: Acute Plan: BUN 66 and Cr 1.24, worsened today. Renal is folllowing the pt (6) Severe protein-calorie malnutrition Current Visit: Yes Status: Acute Plan: Continue tube feeding and keep monitoring albumin level
[2022-09-26] MEDS: LORazepam 2 MG/ML VIAL IV PRN ×3 (10:44→18:07)
--- NOTE | 2022-09-26 12:22 | P.PN ---
Subjective Date of Service: 09/26/22 Chief Complaint: Respiratory failure s/p trach ARDS Patient continues to remain agitated intermittently developed significant hypoxemia this morning unresponsive her FiO2 is below 50% now duration satisfactory Review of Systems Unremarkable Physical Examination - Vital Signs Temperature: 97.6 F Blood Pressure: 156/76 Pulse: 103 Respirations: 30 Pulse Ox (%): 100 - Physical Exam General: Unresponsive Respiratory: Clear to auscultation bilaterally, Diminished Cardiovascular: Regular rate/rhythm, Edema Gastrointestinal: Normal bowel sounds, Soft and benign - Studies Medications List Reviewed: Yes Assessment And Plan - Current Problems (Diagnosis) (1) Respiratory failure Current Visit: No Status: Acute Plan: Patient has respiratory failure and ARDS oxygen requirements have declined to around 40% patient has anemia renal function is relatively stable White count is declining patient was started on daptomycin meropenem and Diflucan by infectious disease chest x-ray on 1 1 shows significant bilateral interstitial lung disease and has end-stage pulmonary fibrosis and COPD vital signs otherwise stable Qualifiers: Chronicity: acute on chronic (2) Iron deficiency anemia Current Visit: Yes Status: Acute Plan: Patient was transfused yesterday and also receiving iron Qualifiers: Iron deficiency anemia type: chronic blood loss Qualified Code(s): D50.0 - Iron deficiency anemia secondary to blood loss (chronic) (3) Atrial fibrillation Current Visit: Yes Status: Acute Plan: History of A. fib patient is now on sotalol liver function tests have improved increase sotalol to 80 twice daily
[2022-09-26] MEDS: DAPTOmycin 500 MG in NA CHLORIDE 0.9% 100 ML IVPB SCH (14:02)
[2022-09-26] MEDS: FLUCONAZOLE 200mg IVPB 200 MG/100 ML BAG IV SCH (14:03)
[2022-09-26] MEDS: VITAL AF 1,000 ML BOT RTH SCH (18:07)
--- NOTE | 2022-09-26 20:14 | P.PN ---
Date of Service: 09/26/22 Vital Signs Temp Pulse Resp BP Pulse Ox 97.1 F 96 H 39 H 134/70 88 L 09/26/22 16:00 09/26/22 18:00 09/26/22 18:38 09/26/22 18:00 09/26/22 18:38 Medications Apixaban (Apixaban 5 Mg Tablet) 5 mg PO BID [facility] Last Admin: 09/26/22 09:41 Dose: 5 mg Furosemide (Furosemide 20 Mg/ 2ml Vial) 20 mg IV Q8H [facility] Hydromorphone HCl (Hydromorphone Hcl 0.5 Mg/0.5 Ml Inj) 0.5 mg IV Q3H PRN PRN Reason: Pain scale 5-7 (Moderate) Last Admin: 09/24/22 20:31 Dose: 0.5 mg Hydromorphone HCl (Hydromorphone Hcl 1 Mg/Ml Inj) 1 mg IV Q3H PRN PRN Reason: Pain scale 8-10 (Severe) Last Admin: 09/26/22 18:08 Dose: 1 mg Sodium Chloride (Sodium Chloride) 250 mls @ 0 mls/hr IV .Q0M [facility] Last Admin: 09/15/22 17:30 Dose: 250 mls Meropenem 1,000 mg/ Sodium (Chloride) 100 mls @ 200 mls/hr IV Q8H [facility] Last Admin: 09/26/22 12:53 Dose: 100 mls Ferric Sodium Gluconate Complex 125 mg/ Sodium Chloride 110 mls @ 100 mls/hr IV DAILY [facility] Stop: 09/27/22 10:05 Last Admin: 09/26/22 09:40 Dose: 110 mls Daptomycin 500 mg/ Sodium (Chloride) 100 mls @ 200 mls/hr IVPB Q24H [facility]; Protocol Last Admin: 09/26/22 14:02 Dose: 100 mls Fluconazole (Diflucan 200 Mg/100 Ml Ivpb (Premix)) 200 mg in 100 mls @ 100 mls/hr IV Q24H [facility]; Protocol Last Admin: 09/26/22 14:03 Dose: 100 mls Levalbuterol HCl (Levalbuterol 1.25 Mg/3 Ml Neb) 1.25 mg NEB [id number] PRN PRN Reason: WHEEZING Last Admin: 09/21/22 08:58 Dose: 1.25 mg Lorazepam (Lorazepam 2 Mg/Ml Vial) 2 mg IV Q3HP PRN PRN Reason: AGITATION - 2ND LINE Last Admin: 09/26/22 18:07 Dose: 2 mg Metoclopramide HCl (Metoclopramide 10 Mg/2ml Inj) 10 mg IV Q8H [facility] Last Admin: 09/26/22 12:53 Dose: 10 mg Metoprolol Tartrate (Metoprolol Tartrate 5 Mg/5 Ml Inj) 5 mg IV Q4H PRN PRN Reason: heart rate Last Admin: 09/22/22 06:31 Dose: 5 mg Nutritional Formula (Vital Af 1,000 Ml Bot) 0 ml RTH CONT [facility] Last Admin: 09/26/22 18:07 Dose: 1,000 ml Ondansetron HCl (Ondansetron 4 Mg/2 Ml Vial) 4 mg IV Q6H PRN PRN Reason: NAUSEA / VOMITING Last Admin: 09/19/22 04:20 Dose: 4 mg Sodium Chloride (Flush Normal Saline 10 Ml) 10 ml IV BID [facility] Last Admin: 09/26/22 09:41 Dose: 10 ml Sodium Chloride (Sodium Chloride 0.9% 10ml Inj) 10 ml IV UD PRN PRN Reason: Diluant Sotalol HCl (Sotalol Hcl 80 Mg Tab) 80 mg PO BID 6AM 6PM [facility] Last Admin: 09/26/22 18:08 Dose: 80 mg Sterile Water (Water For Inj,Sterile 10 Ml) 1.2 ml IM UD PRN PRN Reason: DILUTION OF MED Ziprasidone (Ziprasidone Mesyla 20 Mg/Vial) 10 mg IM Q6H PRN PRN Reason: AGITATION Last Admin: 09/26/22 01:46 Dose: 10 mg Microbiology Results 08/12/22 14:02 Blood - Blood Aerobic Blood Culture - Final No growth in 5 days. 08/12/22 14:02 Blood - Blood Anaerobic Blood Culture - Final No growth in 5 days. 08/12/22 12:44 Blood - Blood Aerobic Blood Culture - Final No growth in 5 days. 08/12/22 12:44 Blood - Blood Anaerobic Blood Culture - Final No growth in 5 days. Assessment/ Plan: Nephrology No dyspnea No chest pain Limited IH/ ROS due to mental status No acute events overnight Vitals, medications, blood work and imaging reviewed in the chart. NAD. NCAT. MMM. Neck supple. Normal respiratory effort. RRR. Abd ND. No C/C. LE Edema 2+. No rash. AAO. Normal speech. Trach [place]on dark Stage I LEOBARDO, improved CKD II -No NSAIDs Hyponatremia, improved -Continue Lasix Anasarca -Increase Lasix 20mg IV q8 -Consider IV Albumin as needed Severe protein malnutrition with decreased functional ability Hypoalbuminemia -Continue TF Anemia in chronic illness -Transfuse PRBC PRN Chronic hypoxic respiratory failure -Trach [facility] -Continue ventilatory support Case reviewed with Dr. Rosenberg
[2022-09-27] MEDS: HYDROMORPHONE HCL 1 MG/ML INJ IV PRN ×3 (00:18→10:51)
[2022-09-27] MEDS: FUROSEMIDE 20 MG/ 2ML VIAL IV SCH ×3 (04:58→20:32)
[2022-09-27] MEDS: Meropenem 1,000 MG in NA CHLORIDE 0.9% 100 ML IV SCH ×3 (04:58→20:33)
[2022-09-27] MEDS: METOCLOPRAMIDE 10 MG/2mL INJ IV SCH ×3 (04:58→20:00)
[2022-09-27] MEDS: SOTALOL HCL 80 MG TAB PO SCH ×2 (04:59→17:34)
[2022-09-27 05:31] LABS: Albumin 1.4 g/dL (3.4-5.0); Phosphorus 4.5 mg/dL (2.5-4.9); Potassium 4.6 mmol/L (3.5-5.1)
--- NOTE | 2022-09-27 06:33 | P.PN ---
Date of Service: 09/27/22 Subjective: no acute events overnight opens eyes to verbal stimuli, light squeeze when asked, but not consistent, did receive dilaudid earlier wound vac dc'd today ROS: full ROS limited due to patient's mentation / fatigue Physical Exam: Gen: arousable, intermittently follows basic commands HEENT: tracheostomy, sclera anicteric, normal conjunctiva CV: sinus tachycardia, 1-2+ b/l pedal edema Pulm: non-labored, tachypneic, s/p tracheostomy Abd: soft, non-distended, colostomy in place with stool Neuro: moves extremities PEG in place vitals reviewed Problem List acute hypoxemic respiratory failure secondary to COPD exacerbation Acute on chronic COPD with exacerbation interstitial lung disease, fibrosis h/o Afib, paroxysmal LEOBARDO h/o Epistaxis Hypertension Cardiomyopathy/CHF, diastolic Sepsis/septic shock secondary to sigmoid colon perforation, now s/p colostomy severe protein calorie malnutrition anemia thrombocytopenia acute on chronic COPD exacerbation acute CHF exacerbation, diastolic CT 08/21 - bilateral fibrosis. On mechanical ventilation since surgery. s/p tracheostomy 09/07/22 Patient with baseline respiratory failure. She was difficult to extubate. Patient developed rapid atrial fibrillation and tachypnea on spontaneous breathing. pulm is following; Steroids and lasix held since bowel perforation. Pulmonary-Dr. Canchola recommended tracheostomy and PEG tube. s/p tracheostomy 09/07/22. Sutures removed by ENT. s/p PEG 09/09/22 Protonix for GI prophylaxis. Patient weaned to trach collar briefly and then back on the vent. Patient with intermittent agitation requiring ativan/dilaudid, and will pull at trach and lines at times minimize psychotropic medications. Multiple sputum culture: Normal respiratory ketan Antibiotics broadened to meropenem, daptomycin and Diflucan per infectious disease recommendation. ok to DC diflucan 1/ Leukocytosis is trended down with the current antibiotics. Patient tolerated SIMV and 50% or less FiO2 for several days. h/o afib, paroxysmal Coreg was initially discontinued due to hypotension Seen by cardiology and patient treated with amiodarone drip, later transitioned to oral amiodarone. Amiodarone discontinued due to rising LFTs. Rapid A. fib was uncontrolled on metoprolol. Pulmonary ordered sotalol 40 mg twice daily to replace metoprolol. She is off Dig Abdominal pain/pelvic abscess/sepsis secondary to perforated diverticulum with abscess Dr. Tavares performed laparotomy with bowel resection and colostomy was on empiric merrem and vanc - ID started daptomycin on 09/01 to cover for VRE; continues on merrem/daptomycin wound culture grew enterococcus s/p PEG 09/09; tube feeds as tolerated - @goal of 60ml/hr, off TPN On IV Reglan per GI for intermittent vomiting, improved CT 09/13 - ordered due to decreased ostomy output and chance in color no abscess, no obstruction tolerating tube feeds LEOBARDO Nephrology is also following and managing LEOBARDO. Serum creatinine is trending down. IV lasix restarted, and titrating up the last few days, pt very edematous improving anemia acute on chronic, unclear etiology, suspect bone marrow suppression / lab draws, with some dark bloody output initially from ostomy no blood seen in ostomy since 09/04. Endoscopy during PEG tube revealed gastritis. s/p 3 unit PRBC transfusion. continue IV iron continue Protonix initially was not on full anticoagulation for A. fib given recurrent drop in hemoglobin and thrombocytopenia, eliquis started 09/16 thrombocytopenia improved Hemoglobin has been stable Transfuse as needed for hemoglobin less than 7. Monitor and optimize electrolytes. VTE: Eliquis Code: Full Disposition: LTAC once accepted Time Spent Managing Pts Care (In Minutes): 25
[2022-09-27] MEDS: SOD FERRIC GLUC COMPLX/SUCROSE 125 MG in NA CHLORIDE 0.9% 100 ML IV SCH (09:17)
[2022-09-27] MEDS: APIXABAN 5 MG TABLET PO SCH ×2 (09:17→20:33)
[2022-09-27] MEDS: LORazepam 2 MG/ML VIAL IV PRN ×2 (09:18→10:51)
--- NOTE | 2022-09-27 09:38 | P.PN ---
Subjective Date of Service: 09/27/22 Chief Complaint: Respiratory failure s/p trach ARDS Patient lying in bed on vent support with elevated breathing rate. RT at the bedside adjusting the vent setting. Patient has no signs of acute distress. Physical Examination - Vital Signs Temperature: 97.3 F Blood Pressure: 147/73 Pulse: 101 Respirations: 40 Pulse Ox (%): 95 - Physical Exam Respiratory: Crackles/rales Cardiovascular: Normal S1 S2 Gastrointestinal: Hypoactive, Other (Mid-abdomen wound vac removed, dressing in place; colostomy LLQ with soft dark brown stool) Musculoskeletal: Swelling (Bilateral feet +3 edema) Urinary: Ontiveros catheter (urine yellow and clear) - Studies Medications List Reviewed: Yes Assessment And Plan - Current Problems (Diagnosis) (1) Abdominal pain/pelvic abscess/sepsis sec Current Visit: Yes Status: Acute Plan: Dr. Tavares performed laparotomy with bowel resection and colostomy. 08/27 Wound culture positive with Enterococcus Faecalis PEG placement 09/09: tube feeds as tolerated. CT 09/13 - ordered due to decreased ostomy output and chance in color which showed no abscess, no obstruction. Currently on Meropenem, Diflucan and Daptomycin due to increasing leukocytosis. D/C Diflucan today and continue Meropenem and Daptomycin. Can stop both IV when WBC back to normal CK-MB ordered today for monitoring risk of Rhabdomyolysis due to on Daptomycin (2) Respiratory failure, pneumonitis vs pul Current Visit: Yes Status: Acute Plan: Continuous on Vent support (3) Leukocytosis Current Visit: Yes Status: Acute Plan: WBC 13.2, trending down, improving (4) Anemia of chronic disease Current Visit: Yes Status: Acute Plan: Hgb 7.6 on 09/26 keep monitoring the trend Blood transfusion as per primary team (5) Renal insufficiency Current Visit: Yes Status: Acute Plan: BUN 66 and Cr 1.2, slightly improved today. Nephrology is following the patient (6) Severe protein-calorie malnutrition Current Visit: Yes Status: Acute Plan: Continue tube feeding and keep monitoring albumin level
--- NOTE | 2022-09-27 10:02 | RAD REPORT ---
EXAM DESCRIPTION: RAD - Chest Single View - 09/27/2022 9:56 am CLINICAL HISTORY: resp failure COMPARISON: Portable 09/24/2022 TECHNIQUE: AP portable chest image was obtained 09/27/2022 9:56 am . FINDINGS: Trach tube is in place, well-positioned. No change to positioning of the left-side PICC li ne. No new tube or line identified. Lung volumes are low. Diffuse interstitial opacification is present similar to prior imaging. No new mass or consolidation. Heart size is normal for portable imaging. No abnormal vascular engorgement. No measurable pleural e ffusion and no pneumothorax. No acute bony abnormality seen. No acute aortic findings suspected. IMPRESSION: Diffuse interstitial opacification similar to September 24 imaging.
--- NOTE | 2022-09-27 12:22 | P.PN ---
Subjective Date of Service: 09/27/22 Chief Complaint: Respiratory failure s/p trach ARDS Patient is still tachypneic has thick secretions although patient's FiO2 is now below 50% still unresponsive Review of Systems is unable to be obtained Physical Examination - Vital Signs Temperature: 97.3 F Blood Pressure: 147/73 Pulse: 101 Respirations: 40 Pulse Ox (%): 95 - Physical Exam General: Alert, Unresponsive Respiratory: Clear to auscultation bilaterally Cardiovascular: Regular rate/rhythm, Edema - Studies Medications List Reviewed: Yes Assessment And Plan - Current Problems (Diagnosis) (1) Respiratory failure Current Visit: No Status: Acute Plan: Respiratory failure seems to be improving FiO2 decreasing patient still tachypneic White count is declining renal function is slightly better cultures so far negative agree with diuretics stable for transfer to an LTAC facility prognosis poor significant interstitial changes in the chest x-ray no change Qualifiers: Chronicity: acute on chronic (2) Iron deficiency anemia Current Visit: Yes Status: Acute Plan: Patient was transfused yesterday and also receiving iron Qualifiers: Iron deficiency anemia type: chronic blood loss Qualified Code(s): D50.0 - Iron deficiency anemia secondary to blood loss (chronic) (3) Atrial fibrillation Current Visit: Yes Status: Acute Plan: History of A. fib patient is now on sotalol liver function tests have improved increase sotalol to 80 twice daily
[2022-09-27] MEDS: DAPTOmycin 500 MG in NA CHLORIDE 0.9% 100 ML IVPB SCH (13:36)
[2022-09-27 18:09] LABS: Blood Gas Oxyhemoglobin 85.2 % (94-97); Blood O2 Saturation 88.8 % (92-98.5)
--- NOTE | 2022-09-27 21:00 | P.PN ---
Date of Service: 09/27/22 Vital Signs Temp Pulse Resp BP Pulse Ox 97.8 F 93 H 31 H 132/59 L 100 09/27/22 20:00 09/27/22 20:32 09/27/22 20:00 09/27/22 20:32 09/27/22 20:00 Medications Apixaban (Apixaban 5 Mg Tablet) 5 mg PO BID [facility] Last Admin: 09/27/22 20:33 Dose: 5 mg Furosemide (Furosemide 20 Mg/ 2ml Vial) 20 mg IV Q8H [facility] Last Admin: 09/27/22 20:32 Dose: 20 mg Hydromorphone HCl (Hydromorphone Hcl 0.5 Mg/0.5 Ml Inj) 0.5 mg IV Q3H PRN PRN Reason: Pain scale 5-7 (Moderate) Last Admin: 09/24/22 20:31 Dose: 0.5 mg Hydromorphone HCl (Hydromorphone Hcl 1 Mg/Ml Inj) 1 mg IV Q3H PRN PRN Reason: Pain scale 8-10 (Severe) Last Admin: 09/27/22 10:51 Dose: 1 mg Sodium Chloride (Sodium Chloride) 250 mls @ 0 mls/hr IV .Q0M [facility] Last Admin: 09/15/22 17:30 Dose: 250 mls Meropenem 1,000 mg/ Sodium (Chloride) 100 mls @ 200 mls/hr IV Q8H OLEG Last Admin: 09/27/22 20:33 Dose: 100 mls Daptomycin 500 mg/ Sodium (Chloride) 100 mls @ 200 mls/hr IVPB Q24H [facility]; Protocol Last Admin: 09/27/22 13:36 Dose: 100 mls Levalbuterol HCl (Levalbuterol 1.25 Mg/3 Ml Neb) 1.25 mg NEB [id number] PRN PRN Reason: WHEEZING Last Admin: 09/21/22 08:58 Dose: 1.25 mg Lorazepam (Lorazepam 2 Mg/Ml Vial) 2 mg IV Q3HP PRN PRN Reason: AGITATION - 2ND LINE Last Admin: 09/27/22 10:51 Dose: 2 mg Metoclopramide HCl (Metoclopramide 10 Mg/2ml Inj) 10 mg IV Q8H [facility] Last Admin: 09/27/22 20:00 Dose: 10 mg Metoprolol Tartrate (Metoprolol Tartrate 5 Mg/5 Ml Inj) 5 mg IV Q4H PRN PRN Reason: heart rate Last Admin: 09/22/22 06:31 Dose: 5 mg Nutritional Formula (Vital Af 1,000 Ml Bot) 0 ml RTH CONT [facility] Last Admin: 09/26/22 18:07 Dose: 1,000 ml Ondansetron HCl (Ondansetron 4 Mg/2 Ml Vial) 4 mg IV Q6H PRN PRN Reason: NAUSEA / VOMITING Last Admin: 09/19/22 04:20 Dose: 4 mg Sodium Chloride (Flush Normal Saline 10 Ml) 10 ml IV BID [facility] Last Admin: 09/27/22 20:33 Dose: 10 ml Sodium Chloride (Sodium Chloride 0.9% 10ml Inj) 10 ml IV UD PRN PRN Reason: Diluant Sotalol HCl (Sotalol Hcl 80 Mg Tab) 80 mg PO BID 6AM 6PM [facility] Last Admin: 09/27/22 17:34 Dose: 80 mg Sterile Water (Water For Inj,Sterile 10 Ml) 1.2 ml IM UD PRN PRN Reason: DILUTION OF MED Ziprasidone (Ziprasidone Mesyla 20 Mg/Vial) 10 mg IM Q6H PRN PRN Reason: AGITATION Last Admin: 09/26/22 01:46 Dose: 10 mg Microbiology Results 08/12/22 14:02 Blood - Blood Aerobic Blood Culture - Final No growth in 5 days. 08/12/22 14:02 Blood - Blood Anaerobic Blood Culture - Final No growth in 5 days. 08/12/22 12:44 Blood - Blood Aerobic Blood Culture - Final No growth in 5 days. 08/12/22 12:44 Blood - Blood Anaerobic Blood Culture - Final No growth in 5 days. Assessment/ Plan: Nephrology No dyspnea No chest pain Limited IH/ ROS due to mental status No acute events overnight Vitals, medications, blood work and imaging reviewed in the chart. NAD. NCAT. MMM. Neck supple. Normal respiratory effort. RRR. Abd ND. No C/C. LE Edema 2+. No rash. AAO. Normal speech. Trach Ontiveros dark Stage I LEOBARDO, improved CKD II -No NSAIDs Hyponatremia, improved -Continue Lasix Anasarca -Continue Lasix 20mg IV q8 -Consider IV Albumin as needed Severe protein malnutrition with decreased functional ability Hypoalbuminemia -Continue TF Anemia in chronic illness -Transfuse PRBC PRN Chronic hypoxic respiratory failure -Trach care -Continue ventilatory support Case reviewed with Dr. Rosenberg
[2022-09-27] MEDS ORDERED: SODIUM CHLORIDE 0.9% 10ML INJ IV PRN (21:13)
[2022-09-27] MEDS: PANTOPRAZOLE 40 MG INJ IVP SCH (21:34)
[2022-09-28] MEDS: Meropenem 1,000 MG in NA CHLORIDE 0.9% 100 ML IV SCH ×2 (03:26→11:08)
[2022-09-28] MEDS: METOCLOPRAMIDE 10 MG/2mL INJ IV SCH ×2 (03:26→11:08)
[2022-09-28 04:15] VITALS: O2SAT 96
[2022-09-28] MEDS: FUROSEMIDE 20 MG/ 2ML VIAL IV SCH ×2 (05:56→13:57)
[2022-09-28] MEDS: SOTALOL HCL 80 MG TAB PO SCH ×2 (05:56→17:36)
[2022-09-28 06:01] LABS: Hematocrit 23.6 % (36.0-45.0); MCV 94.3 fL (80-100); MPV 8.3 fL (7.6-11.3); RBC Red Blood Cell Count 2.51 M/uL (3.86-4.86)
[2022-09-28 06:16] LABS: Magnesium 2.3 mg/dL (1.6-2.4); Phosphorus 4.4 mg/dL (2.5-4.9); Potassium 3.9 mmol/L (3.5-5.1)
[2022-09-28 06:17] VITALS: BMI 30.5
[2022-09-28] MEDS ORDERED: KCL 20 MEQ/100 mL IVPB 20 MEQ/100 ML BAG IV SCH (07:00)
[2022-09-28] MEDS: PANTOPRAZOLE 40 MG INJ IVP SCH (07:22)
[2022-09-28] MEDS: APIXABAN 5 MG TABLET PO SCH (07:22)
--- NOTE | 2022-09-28 08:13 | RAD REPORT ---
EXAM DESCRIPTION: RAD - Chest Single View - 09/28/2022 5:23 am CLINICAL HISTORY: resp failure COMPARISON: Chest Single View dated 09/27/2022; Chest Single View dated 09/24/2022; Chest Single View da selina 09/21/2022; Chest Single View dated 09/20/2022; Abdomen Pelvis W Contrast dated 09/13/2022 FINDINGS: Lines: Tracheostomy. Left subclavian approach PICC with tip overlying the SVC. Lungs: Widespread interstitial and airspace disease similar to 09/27/2022 . Pleural: No significant pleural effusions or pneumothorax. Cardiac: The heart size is within normal limits. Mediastinum: Within normal limits. Bones: No acute fractures. Other: None IMPRESSION: Interstitial and to lesser extent airspace opacities bilaterally are unchanged since 12/2022. This likely represents pneumonia superimposed upon a background of chronic interstitial lung disease .
[2022-09-28] MEDS ORDERED: D50W 25 GM/50 ML SYRINGE IV PRN (11:36)
[2022-09-28] MEDS ORDERED: D10W 125 ML IV PRN (11:38)
[2022-09-28] MEDS ORDERED: D50W 25 GM/50 ML SYRINGE IV ONE (11:38)
--- NOTE | 2022-09-28 12:28 | P.PN ---
Subjective Date of Service: 09/28/22 Chief Complaint: Respiratory failure s/p trach ARDS Patient is more alert today hemodynamically stable oxygenation satisfactory Episodes of agitation last night Review of Systems is unable to be obtained Physical Examination - Vital Signs Temperature: 97.2 F Blood Pressure: 138/59 Pulse: 93 Respirations: 34 Pulse Ox (%): 94 - Physical Exam General: Alert, Cooperative Respiratory: Clear to auscultation bilaterally, Diminished Cardiovascular: Regular rate/rhythm, Normal S1 S2, Edema - Studies Medications List Reviewed: Yes Assessment And Plan - Current Problems (Diagnosis) (1) Respiratory failure Current Visit: No Status: Acute Plan: Respiratory failure condition stable to wean her off from the ventilator pressure support ventilation alternating with trach collar anemia and white count stable no evidence of sepsis patient is on Lasix chest x-ray shows interstitial change still stopping the antibiotic use Geodon as needed Qualifiers: Chronicity: acute on chronic (2) Iron deficiency anemia Current Visit: Yes Status: Acute Plan: Patient was transfused yesterday and also receiving iron Qualifiers: Iron deficiency anemia type: chronic blood loss Qualified Code(s): D50.0 - Iron deficiency anemia secondary to blood loss (chronic) (3) Atrial fibrillation Current Visit: Yes Status: Acute Plan: Rate controlled
[2022-09-28] MEDS: DAPTOmycin 500 MG in NA CHLORIDE 0.9% 100 ML IVPB SCH (13:56)
--- NOTE | 2022-09-28 15:26 | PN ---
Subjective: The patient is lying in bed, being transferred to long-term acute care for her prolonged respiratory failure and treatment of her abdominal abscess. The patient opens eyes spontaneously an d follows simple commands. Objective: Vital Signs: Temperature 97, pulse 88, respiration 34, blood pressure 122/51. Lungs: Basal crackles. Heart: S1, S2. Regular. Abdomen: Soft, nontender. Bowel sounds present. Wound noted. Extremities: Trace edema. Laboratory Data: Shows WBC 13.3, hemoglobin 7.5, platelets 266. Chemistry shows BUN of 64, creatini ne 1.1. Assessment And Plan: Respiratory failure, continue current antibiotics with meropenem. Abdominal ab scess with vancomycin-resistant Enterococci infection, Enterococcus faecalis infection most likely va ncomycin-resistant Enterococci. We will recommend to continue daptomycin total of 2 weeks. We will follow the patient closely. Leukocytosis, anemia of chronic disease, severe protein-calorie malnouri shment. We will follow the patient closely. NF/MODL Voice ID: [id number] Report ID: [id number]
[2022-09-28] MEDS ORDERED: D10W 250 ML IV PRN (15:55)
[2022-09-28] MEDS: ONDANSETRON 4 MG/2 ML VIAL IV PRN (16:00)
--- NOTE | 2022-09-28 16:06 | P.DS ---
Admission Date: 08/12/22 Discharge Date: 09/28/22 [facility] Reason for Admission: Respiratory failure s/p trach ARDS Consultations: PulmonologyDr. Sushant General surgeryDr. Chaitanya Infectious diseaseDr. Umberto Cardiology - [place] NephrologyDr. Nico GI - Dr. Bryant Brief History of Present Illness: 66 years of age well-known to me with recurrent hospital admissions for severe hypoxemia shortness of breath recently discharged by me at the office according to the son she was doing well yesterday suddenly became more short of breath chest x-ray shows a significant worsening history of presumed COPD any fever or chills currently on BiPAP Hospital Course: Problem List acute hypoxemic respiratory failure secondary to COPD exacerbation Acute on chronic COPD with exacerbation interstitial lung disease, fibrosis h/o Afib, paroxysmal LEOBARDO h/o Epistaxis Hypertension Cardiomyopathy/CHF, diastolic Sepsis/septic shock secondary to sigmoid colon perforation, now s/p colostomy severe protein calorie malnutrition now s/p PEG placement anemia; acute on chronic, chronic disease, iron deficiency, small amount of mucosal bleed post-op thrombocytopenia Briefly, patient presented with acute on chronic COPD Exacerbation with CHF exacerbation. She required HFNC and was difficult to wean off to nasal cannula. After ~2 weeks of hospitalization, she developed progressively worsening abdominal pain and was fo;und to have a perforated diverticulum. She underwent laparotomy with bowel resection and colostomy by Dr. Tavares on 08/27/22. Post- operative course was complicated by difficulty weaning off the ventilator secondary to hypoxia and afib/agitation. She underwent tracheostomy placement on 09/07. She has been difficult to wean off ventilator, tolerating trach collar/CPAP for few hours at a time. She was treated empirically with meropenem and vancomycin for perforation, cultures grew Enterococcus. She continued to have a leukocytosis, infectious disease was consulted, and she was switched to meropenem and daptomycin on 09/01 to cover for potential VRE, despite initial sensitivities showing otherwise. She then continued to have slow improvement of her leukocytosis and clinical picture. Diflucan was also added, and subsequently discontinued on 09/26. PEG tube was placed on 09/09, noted to have gastritis. Given her anemia, postoperative mild mucosal bleed from her intestines, anticoagulation was held (for afib). Her hemoglobin was stable, and pulmonology restarted her Eliquis on 09/16. Patient was also started on IV Reglan per GI for intermittent vomiting postoperative course. Atrial fibrillation was initially treated with amiodarone, but had to be discontinued due to rising LFTs. Remained uncontrolled on metoprolol and was switched to sotalol which is controlled her A. fib well She received 3 units of PRBCs. And IV iron. Hemoglobin has been relatively stable for the last several days. Postoperatively the sonny developed moderate lower extremity edema, hypoalbuminemia. Early last week she has been tolerating and improving with diuresis. Of note her BUN has slowly been uptrending since 09/17 from 16 to 60s now. Her creatinine has remained stable. Possibly multifactorial by a very small GI bleed, possibly from high-protein intake, muscle wasting, less likely to be due to dehydration given that her creatinine has remained stable. Ostomy output remains brown. Eliquis discontinued on 09/28 with goal to monitor BUN. Dental Technologist re-consulted to evaluate feeds for protein content. Course by problem: acute on chronic COPD exacerbation acute CHF exacerbation, diastolic CT 08/21 - bilateral fibrosis. On mechanical ventilation since surgery, then s/p tracheostomy 09/07/22 Patient with baseline respiratory failure. She was difficult to extubate. Patient developed rapid atrial fibrillation and tachypnea on spontaneous breathing. pulm is following; Steroids and lasix held since bowel perforation. s/p tracheostomy 09/07/22. Sutures removed by ENT. s/p PEG 09/09/22 Protonix for GI prophylaxis. Patient with intermittent agitation requiring ativan/dilaudid, and will pull at trach and lines at times. Improved and minimizing psychotropic medications Patient weaned to trach collar briefly and then back on the vent. Multiple sputum culture: Normal respiratory ketan Antibiotics broadened to meropenem, daptomycin and Diflucan per infectious disease recommendation. diflucan dc'd 09/27 Leukocytosis is trended down with the current antibiotics. Patient tolerated SIMV and 50% or less FiO2 for several days. h/o afib, paroxysmal Coreg was initially discontinued due to hypotension Seen by cardiology and patient treated with amiodarone drip, later transitioned to amiodarone via FT Amiodarone discontinued due to rising LFTs. Rapid A. fib was uncontrolled on metoprolol. Improved with Sotalol, started 40mg BID, and titrated up to 80mg anticoagulation held initially secondary to mucosal bleed/oozing, gastritis noted at time of PEG placement started by pulm on 09/16 dc'd 09/28 given rising BUN, for possibility of very mild bleed Abdominal pain/pelvic abscess/sepsis secondary to perforated diverticulum with abscess Dr. Tavares performed laparotomy with bowel resection and colostomy wound culture grew enterococcus was on empiric merrem and vanc - ID started daptomycin on 09/01 to cover for VRE; continues on merrem/daptomycin s/p PEG 09/09; tube feeds as tolerated - @goal of 60ml/hr, off TPN On IV Reglan per GI for intermittent vomiting, improved CT 09/13 - ordered due to decreased ostomy output and chance in color no abscess, no obstruction LEOBARDO Nephrology is also following Serum creatinine has trended down and stable IV lasix restarted, and titrating up the last few days, edema improving Cr stable, BUN uptrending as noted above; discussed with nephrology, less likely renal, and possibly multifactorial, protein intake and ?minimal gi bleed anemia acute on chronic, unclear etiology, suspect bone marrow suppression / lab draws, with some dark bloody output initially from ostomy in first few days post-op no blood seen in ostomy since 09/04. Endoscopy during PEG tube revealed gastritis. s/p 3 unit PRBC transfusion. received IV iron continue Protonix initially was not on full anticoagulation for A. fib given recurrent drop in hemoglobin, thrombocytopenia and gastritis; eliquis started 09/16 thrombocytopenia improved Hemoglobin has been stable Transfuse as needed for hemoglobin less than 7. Vital Signs/Physical Exam: Temp Pulse Resp BP Pulse Ox 97.2 F 88 34 H 122/61 94 09/28/22 12:28 09/28/22 13:57 09/28/22 12:28 09/28/22 13:57 09/28/22 12:28 General: Alert, Other (intermittently follows commands, intermittent agitation) HEENT: PERRLA, EOMI, Sclerae nonicteric Respiratory: Diminished, Other (+tracheostomy, on vent; FIo2: 40%) Cardiovascular: Regular rate/rhythm, Edema (bilateral lower extremity, 1-2+) Gastrointestinal: Soft and benign, Non-distended, No tenderness, Other (+colostomy, + PEG; surgical wound healing) Musculoskeletal: No erythema, No warmth Neurological: Other (moves all extremities spontaenously, follows commands intermittently, more alert) Urinary: Ontiveros catheter Laboratory Data at Discharge: WBC 13.30 K/uL (4.3-10.9) H 09/28/22 04:45 Hgb 7.5 g/dL (12.0-15.0) L 09/28/22 04:45 Hct 23.6 % (36.0-45.0) L 09/28/22 04:45 Plt Count 266 K/uL (152-406) 09/28/22 04:45 PT 15.1 SECONDS (9.5-12.5) H 09/01/22 04:45 INR 1.37 09/01/22 04:45 APTT 26.7 SECONDS (24.3-36.9) 08/31/22 05:10 Sodium 141 mmol/L (136-145) 09/28/22 04:45 Potassium 3.9 mmol/L (3.5-5.1) D 09/28/22 04:45 BUN 64 mg/dL (7-18) H 09/28/22 04:45 Creatinine 1.19 mg/dL (0.55-1.02) H 09/28/22 04:45 Glucose 85 mg/dL (74-106) 09/28/22 04:45 Phosphorus 4.4 mg/dL (2.5-4.9) 09/28/22 04:45 Magnesium 2.3 mg/dL (1.6-2.4) 09/28/22 04:45 Total Bilirubin 0.7 mg/dL (0.2-1.0) 09/24/22 04:10 AST 26 U/L (15-37) 09/24/22 04:10 ALT 20 U/L (13-56) 09/24/22 04:10 Alkaline Phosphatase 212 U/L (45-117) H 09/24/22 04:10 Home Medications: Ca/D3/Mag Ox/Zinc/Manager Paper/Nakul/Bor [Calcium 600-Vit D3-Min Chew Tb] 2 each PO DAILY 07/20/22 Montelukast [Singulair*] 10 mg PO BEDTIME 07/20/22 Multivitamin [Multiple Vitamins] 1 each PO DAILY 07/20/22 Omeprazole 20 mg PO DAILY 07/20/22 Fluticasone/Umeclidin/Vilanter [Trelegy Ellipta 200-62.5-25] 1 each IH DAILY #30 aero 07/28/22 Cetirizine HCl [Zyrtec] 10 mg PO DAILY #30 tab 07/30/22 Ipratropium Neb [Atrovent*] 0.5 mg NEB [id number] PRN #120 amp 07/30/22 Metoprolol Tartrate [Lopressor*] 50 mg PO BID #60 tab 07/30/22 predniSONE [Deltasone*] 10 mg PO BIDL #8 tab 07/30/22 Carvedilol [Coreg] 12.5 mg PO BID 08/12/22 Cetirizine HCl [Zyrtec] 10 mg PO DAILY 08/12/22 Fluticasone [Flonase 50MCG Nasal Gary*] 1 sprays ABHISHEK DAILY 08/12/22 Guaifenesin [Mucinex] 600 mg PO BID 08/12/22 Naproxen [Naprosyn] 1,000 mg PO BID 08/12/22 Followup: NONE,NONE [Primary Care Provider] - Time spent managing pt's care (in minutes): 45
[2022-09-28 16:33] VITALS: TEMP 97.7
[2022-09-28 20:26] VITALS: BP 102/52
--- NOTE | 2022-09-28 21:27 | P.PN ---
Date of Service: 09/28/22 Vital Signs Temp Pulse Resp BP Pulse Ox 97.7 F 81 19 102/52 L 98 09/28/22 16:00 09/28/22 19:00 09/28/22 19:00 09/28/22 19:00 09/28/22 19:00 Microbiology Results 08/12/22 14:02 Blood - Blood Aerobic Blood Culture - Final No growth in 5 days. 08/12/22 14:02 Blood - Blood Anaerobic Blood Culture - Final No growth in 5 days. 08/12/22 12:44 Blood - Blood Aerobic Blood Culture - Final No growth in 5 days. 08/12/22 12:44 Blood - Blood Anaerobic Blood Culture - Final No growth in 5 days. Assessment/ Plan: Nephrology No dyspnea No chest pain Limited IH/ ROS due to mental status No acute events overnight Vitals, medications, blood work and imaging reviewed in the chart. NAD. NCAT. MMM. Neck supple. Normal respiratory effort. RRR. Abd ND. No C/C. LE Edema 2+. No rash. AAO. Normal speech. Trach Weston floyd Stage I LEOBARDO, improved CKD II -No NSAIDs Hyponatremia, improved -Continue Lasix Anasarca -Continue Lasix 20mg IV q8 -Consider IV Albumin as needed Severe protein malnutrition with decreased functional ability Hypoalbuminemia -Continue TF Anemia in chronic illness -Transfuse PRBC PRN Chronic hypoxic respiratory failure -Trach care -Continue ventilatory support Case reviewed with Dr. Rosenberg Plan for LTAC placement
== END 2022-09-28 19:45 | DRG 3 ==
LOC: ER 12:14 → ERHOLD 16:15 → 2ND 17:24 → 3RD-ICU 08-26 12:25
PROVIDERS: ADMIT Internal Medicine Sleep Medicine; ATTEND Hospitalist
PROC: 02HV33Z Insertion of Infusion Device into Superior Vena Cava, Percutaneous Approach (ICD-10-PCS; 2022-08-24)
PROC: 0D1N0Z4 Bypass Sigmoid Colon to Cutaneous, Open Approach (ICD-10-PCS; 2022-08-27)
PROC: 0DTN0ZZ Resection of Sigmoid Colon, Open Approach (ICD-10-PCS; 2022-08-27)
PROC: 0DNU0ZZ Release Omentum, Open Approach (ICD-10-PCS; 2022-08-27)
PROC: 3E0336Z Introduction of Nutritional Substance into Peripheral Vein, Percutaneous Approach (ICD-10-PCS; 2022-08-27)
PROC: 5A1955Z Respiratory Ventilation, Greater than 96 Consecutive Hours (ICD-10-PCS; principal; 2022-08-27 10:00)
PROC: 0BH17EZ Insertion of Endotracheal Airway into Trachea, Via Natural or Artificial Opening (ICD-10-PCS; 2022-08-31)
PROC: 30233N1 Transfusion of Nonautologous Red Blood Cells into Peripheral Vein, Percutaneous Approach (ICD-10-PCS; 2022-09-03)
PROC: 0B110Z4 Bypass Trachea to Cutaneous, Open Approach (ICD-10-PCS; 2022-09-07)
DX: J44.1 Chronic obstructive pulmonary disease with (acute) exacerbation (principal); A41.9 Sepsis, unspecified organism; I50.33 Acute on chronic diastolic (congestive) heart failure; R65.21 Severe sepsis with septic shock; E43 Unspecified severe protein-calorie malnutrition; J18.9 Pneumonia, unspecified organism; J80 Acute respiratory distress syndrome; N17.9 Acute kidney failure, unspecified; I43 Cardiomyopathy in diseases classified elsewhere; K56.7 Ileus, unspecified; K57.20 Diverticulitis of large intestine with perforation and abscess without bleeding; E87.1 Hypo-osmolality and hyponatremia; R64 Cachexia; L02.211 Cutaneous abscess of abdominal wall; Z16.21 Resistance to vancomycin; I11.0 Hypertensive heart disease with heart failure; D63.8 Anemia in other chronic diseases classified elsewhere; J44.0 Chronic obstructive pulmonary disease with (acute) lower respiratory infection; I48.0 Paroxysmal atrial fibrillation; K21.9 Gastro-esophageal reflux disease without esophagitis; D50.0 Iron deficiency anemia secondary to blood loss (chronic); K29.70 Gastritis, unspecified, without bleeding; K52.9 Noninfective gastroenteritis and colitis, unspecified; N73.9 Female pelvic inflammatory disease, unspecified; J84.10 Pulmonary fibrosis, unspecified; L89.152 Pressure ulcer of sacral region, stage 2; B95.2 Enterococcus as the cause of diseases classified elsewhere; R68.89 Other general symptoms and signs; R04.0 Epistaxis; Z78.1 Physical restraint status; Z88.5 Allergy status to narcotic agent; Z68.30 Body mass index [BMI] 30.0-30.9, adult; Z99.81 Dependence on supplemental oxygen; Z79.52 Long term (current) use of systemic steroids; Z79.899 Other long term (current) drug therapy; Z20.822 Contact with and (suspected) exposure to COVID-19
CPT/HCPCS: 0240U; 36415; 36430; 36569; 70450; 71045; 71250; 71275; 74018; 74176; 74177; 80048; 80053; 80069; 80076; 80202; 81001; 82103; 82550; 82553; 82728; 82805; 82947; 83540; 83605; 83735; 83880; 84100; 84132; 84145; 84466; 84484; 85014; 85018; 85025; 85027; 85379; 85384; 85610; 85730; 86850; 86870; 86900; 86901; 86922; 87040; 87070; 87075; 87077; 87086; 87088; 87186; 87205; 88305; 88307; 93005; 93306; 94002; 94003; 94640; 94660; 94760; 96374; 96375; 97110; 97112; 97161; 97164; 97530; 99251; 99285; C9113; J0282; J0456; J0692; J0878; J1100; J1160; J1170; J1450; J1650; J1720; J1940; J2001; J2185; J2250; J2270; J2370; J2405; J2704; J2765; J2916; J2920; J2930; J3010; J3370; J3475; J3480; J3486; J7030; J7040; J7050; J7060; J7120; J7512; J7613; J7614; J7644; P9016; P9047; Q9967